=== PATIENT | female | born 1940 | race Caucasian/White ===

== ENCOUNTER → 2018-11-16 09:58 | Outpatient (CLI) | payer MEDICARE, SELFPAY ==
--- NOTE | 2018-11-16 10:01 | BI_ITS ---
MAMMOGRAPHY - BILATERAL SCREENING 3-D SAURABH SYNTHESIS REASON FOR EXAM: Female, 77 years old. Bilateral Screening 3-D tomosynthesis PERTINENT HISTORY: No significant family history. TECHNIQUE: 2-D mammograms and 3-D Saurabh synthesis of the breast (s) were performed. CAD was performed. COMPARISON: July 07, 2017, May 20, 2016 FINDINGS: The breast composition is almost entirely fat. Scattered benign calcifications are stable. No dense spiculated masses or suspicious microcalcifications are identified. No architectural distortion is identified. There is no skin thickening or retraction. There has been no significant change since the prior study. BI/SCREENING MAMM (CAD), BILAT IMPRESSION: No mammographic signs of malignancy. Routine yearly mammograms recommended. ASSESSMENT CATEGORY: BIRADS Category 2: Benign. A letter regarding these results will be sent to the patient by the facility within 30 days. FOLLOW UP RECOMMENDATION: Yearly follow up mammogram recommended. (A) Approximately 10% of breast cancers are not detected by mammography. A normal mammogram should not delay biopsy of a clinically suspicious abnormality. Electronically Signed: Genaro Arshad MD at 12:55 EDT , Service support ,
== END ==
PROVIDERS: Family Provider Family Medicine; PCP Family Medicine; Visit Provider Family Medicine
DX: Z12.31 Encounter for screening mammogram for malignant neoplasm of breast (principal)
CPT/HCPCS: 77063; 77067

== ENCOUNTER → 2018-12-05 | Outpatient (CLI) | payer MEDICARE, SELFPAY ==
[2018-07-06 14:13] VITALS: BMI 23.3
--- NOTE | 2018-12-05 13:08 | RAD_ITS ---
STUDY: X-RAY - LUMBAR SPINE REASON FOR EXAM: Female, 78 years old. Low back and bilateral hip pain. History of fall in July. TECHNIQUE: 5 view(s) of the lumbar spine were obtained. COMPARISON: None FINDINGS: There is generalized osteopenia. Normal lumbar lordosis. There is no substantial scoliosis. There is a normal alignment of the vertebrae. There is an anterior wedge compression deformity of the L1 and L2 vertebral bodies, age undetermined. There are no findings to suggest acute abnormality. There is diffuse mild intervertebral disc space narrowing with osteophyte formation most marked at L5-S1. There is diffuse facet sclerosis. There is marked aortic calcification. RAD/L/S Spine Min 4 Views IMPRESSION: Osteopenia with anterior wedge compression deformities of L1 and L2, age undetermined. Diffuse mild lumbar spondylosis. No acute finding identified. Electronically Signed: Genaro Arshad MD at 12:06 EDT , Service support ,
--- NOTE | 2018-12-05 13:09 | RAD_ITS ---
STUDY: X-RAY - PELVIS AND BILATERAL HIPS REASON FOR EXAM: Female, 78 years old. Bilateral hip pain TECHNIQUE: AP view of the pelvis.? 2 views of the right hip, and 2 views of the left hip were obtained. COMPARISON: None. FINDINGS: The cementless total right hip replacement and degenerative changes of the left hip joint. Healed fractures of the right inferior pubic ramus and in the left superior pubic ramus. The sacroiliac joints are normal. There are no acute fractures RAD/Hips B/L min 2 views w/ Pelvis IMPRESSION: No acute fractures. 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 Electronically Signed: Mekhi Bobby MD at 2:24 EDT Tel , Service support ,
== END | disposition home or self-care (01) ==
LOC: RAD 13:06
PROVIDERS: Family Provider Family Medicine; PCP Family Medicine; Referring Provider Family Medicine; Visit Provider Family Medicine
DX: Z91.81 History of falling (principal)
CPT/HCPCS: 72110; 73521

== ENCOUNTER → 2019-03-14 | Outpatient (CLI) | payer MEDICARE, SELFPAY ==
[2019-01-19 12:29] VITALS: BMI 22.6
[2019-03-14 10:32] LABS: Anion Gap 5 (5-15); BUN 11 mg/dL (7-18); BUN/Creat Ratio 12.4 RATIO (10-20); Calcium,Total 8.8 mg/dL (8.5-10.1); Chloride 94 mmol/L (98-107); Creatinine, Serum 0.89 mg/dL (0.55-1.02); EST Glomerular Filtration Rate 65 mL/min (>60); Est Glom Filt Rate - Afr Amer 79 mL/min (>60); Glucose 88 mg/dL (74-106); Potassium 3.7 mmol/L (3.5-5.1); Sodium Level 127 mmol/L (136-145)
== END | disposition home or self-care (01) ==
PROVIDERS: Family Provider Family Medicine; PCP Family Medicine; Referring Provider Family Medicine; Visit Provider Family Medicine
DX: E87.1 Hypo-osmolality and hyponatremia (principal)
CPT/HCPCS: 36415; 80048

== ENCOUNTER → 2019-03-24 08:43 | Outpatient (CLI) | payer MEDICARE, SELFPAY ==
[2019-01-19 12:29] VITALS: BMI 22.6
[2019-03-24 10:21] LABS: Anion Gap 9 (5-15); BUN 13 mg/dL (7-18); BUN/Creat Ratio 16.5 RATIO (10-20); Calcium,Total 8.9 mg/dL (8.5-10.1); Chloride 95 mmol/L (98-107); Creatinine, Serum 0.79 mg/dL (0.55-1.02); EST Glomerular Filtration Rate 75 mL/min (>60); Est Glom Filt Rate - Afr Amer 90 mL/min (>60); Glucose 90 mg/dL (74-106); Potassium 3.9 mmol/L (3.5-5.1); Sodium Level 133 mmol/L (136-145)
== END ==
PROVIDERS: Family Provider Family Medicine; PCP Family Medicine; Referring Provider Nurse Practitioner Family; Visit Provider Nurse Practitioner Family
DX: E87.1 Hypo-osmolality and hyponatremia (principal)
CPT/HCPCS: 36415; 80048

== ENCOUNTER → 2019-12-26 09:53 | Outpatient (CLI) | payer MEDICARE, SELFPAY ==
[2019-08-15 12:46] VITALS: BMI 23.1
[2019-12-26 12:46] LABS: Anion Gap 4 (5-15); BUN 15 mg/dL (7-18); BUN/Creat Ratio 19.1 RATIO (10-20); Calcium,Total 8.7 mg/dL (8.5-10.1); Chloride 101 mmol/L (98-107); Creatinine, Serum 0.79 mg/dL (0.55-1.02); EST Glomerular Filtration Rate 75 mL/min (>60); Est Glom Filt Rate - Afr Amer 90 mL/min (>60); Free T3 2.1 pg/mL (2.18-3.98); Glucose 91 mg/dL (74-106); Potassium 4.1 mmol/L (3.5-5.1); Sodium Level 135 mmol/L (136-145); T4 Free Direct 1.63 ng/dL (0.76-1.46); Thyroid Stim Hormone (TSH) 0.47 uIU/mL (0.358-3.74)
== END ==
PROVIDERS: PCP Family Medicine; Referring Provider Family Medicine; Visit Provider Family Medicine
DX: E03.9 Hypothyroidism, unspecified (principal); E87.1 Hypo-osmolality and hyponatremia
CPT/HCPCS: 36415; 80048; 84439; 84443; 84481

== ENCOUNTER → 2020-01-02 10:50 | Outpatient (CLI) | payer MEDICARE, SELFPAY ==
[2019-08-15 12:46] VITALS: BMI 23.1
--- NOTE | 2020-01-02 10:53 | BI_ITS ---
MAMMOGRAPHY - BILATERAL SCREENING REASON FOR EXAM: Female, 79 years old. Routine annual screening examination. PERTINENT HISTORY: Non-contributory. TECHNIQUE: Digital bilateral breast saurabh (3D mammographic acquisition) in the CC and MLO projections. 2-D mediolateral oblique (MLO) and craniocaudad (CC) views of both breasts were obtained. CAD: Full Field Digital Mammography with Computer Added Detection was performed. COMPARISON: Comparison is made with prior examination dated November 16, 2018 and July 07, 2017. FINDINGS: Breast Composition: There are scattered areas of fibroglandular density. There are no dominant masses or suspicious calcifications. No other significant abnormalities are identified. There has been no significant change since the prior study. BI/SCREEN MAMM (CAD) W/SAURABH BILAT IMPRESSION: Stable bilateral screening mammogram. Yearly follow-up mammogram recommended. (A) ASSESSMENT CATEGORY: BIRADS Category 1: Negative. A letter regarding these results will be sent to the patient by the facility within 30 days. Approximately 10% of breast cancers are not detected by mammography. A normal mammogram should not delay biopsy of a clinically suspicious abnormality. [id number] Electronically Signed: Troy Limon, at 12:16 EDT , Service support ,
== END ==
PROVIDERS: PCP Family Medicine; Referring Provider Family Medicine; Visit Provider Family Medicine
DX: Z12.31 Encounter for screening mammogram for malignant neoplasm of breast (principal)
CPT/HCPCS: 77063; 77067

== ENCOUNTER 2020-02-17 19:54 | Emergency (ER) | payer MEDICARE, SELFPAY ==
[2019-08-15 12:46] VITALS: BMI 23.1
[2020-02-17 19:55] VITALS: BP 180/78; PULSE 79; RESP 18; TEMP 36.7; O2SAT 98; BMI 22.8
--- NOTE | 2020-02-17 20:13 | EKG12_ITS ---
Test Reason : NAUSEA/VOMITING Blood Pressure : / mmHG Vent. Rate : 085 BPM Atrial Rate : 085 BPM P-R Int : 196 ms QRS Dur : 100 ms QT Int : 410 ms P-R-T Axes : 090 005 062 degrees QTc Int : 487 ms Normal sinus rhythm Nonspecific ST abnormality Abnormal ECG Confirmed by DACIA CAVAZOS, SHARMAINE ([id number]), photographic editor SHILPI CEJA ([id number]) on 02/20/2020 10:40:24 AM Referred By: WILLIAM Confirmed By:SHARMAINE PEDERSON MD
[2020-02-17 20:32] LABS: Absolute Lymphocyte Count 0.77 X10^3/uL (0.83-4.51); Absolute Neutrophil Count 5.9 X10^3/uL (2.0-7.7); Basophil# 0.01 X10^3/uL; Basophil% 0.1 % (0-1); Eosinophil# 0.01 X10^3/uL; Eosinophils% 0.1 % (0-5); Hematocrit 30.7 % (37-47); Hemoglobin 10.3 g/dL (12.0-15.0); Lymphocyte # 0.77 X10^3/ul (4.0); Lymphocyte % 10.2 % (19-41); Mean Corp Hgb Conc 33.6 g/dL (32-36); Mean Corpuscular Hgb 30.1 pg (27.0-32.0); Mean Corpuscular Volume 89.8 fL (81-99); Mean Platelet Vol. 10.2 fl (6.2-12.0); Monocyte# 0.86 X10^3/uL; Monocyte% 11.4 % (0-10); NRBC Flagged by Analyzer 0 % (0-5); Neutrophil # 5.86 X10^3/uL (2.7-7.7); Neutrophil % 77.9 % (47-70); Platelet Count 262 K/mm3 (150-450); RBC Distribution Width CV 13.2 % (11.6-14.6); RBC Distribution Width SD 43.6 fl (35.1-43.9); Red Blood Count 3.42 M/mm3 (4.2-5.4); White Blood Count 7.5 K/mm3 (4.4-11.0)
[2020-02-17 20:37] LABS: Mucous, Urine 0 SEEN /hpf (<or=2+); Squamous Epithelial Cells - UA 0 SEEN /hpf (5-10); White Blood Cells 0 SEEN /hpf (0-5)
[2020-02-17 20:41] LABS: Color, Urine Straw (Yellow); Glucose, Dipstick Normal (Normal); Ketone-Dipstick 50 mg/dl (Negative); Leukocyte Esterase-Dipstick Negative /ul (Negative); Nitrite-Dipstick Negative (Negative); Occult Blood-Urine 25 /ul (Negative); Protein-Dipstick Negative (Negative); Specific Gravity, Urine 1.015 (1.002-1.030); Urine Bilirubin Dipstick Negative (Negative); Urine Clarity Clear (Clear); Urine Urobilinogen Normal (Normal)
[2020-02-17 20:47] LABS: ALB/GLOB Ratio 0.8 RATIO (0.9-2.4); AST(SGOT) 18 U/L (15-37); Alanine Aminotransfer ALT/SGPT 17 U/L (13-56); Albumin, Serum 3.3 g/dL (3.2-5.0); Alkaline Phosphatase 75 U/L (45-117); Anion Gap 9 (5-15); BUN 13 mg/dL (7-18); BUN/Creat Ratio 16.6 RATIO (10-20); Calcium,Total 8.5 mg/dL (8.5-10.1); Chloride 94 mmol/L (98-107); Creatinine, Serum 0.78 mg/dL (0.55-1.02); EST Glomerular Filtration Rate 75 mL/min (>60); Est Glom Filt Rate - Afr Amer 91 mL/min (>60); Globulin 3.9 g/dL (2.2-4.2); Glucose 114 mg/dL (74-106); Lipase 92 U/L (73-393); Potassium 3.3 mmol/L (3.5-5.1); Protein, Total 7.2 g/dL (6.4-8.2); Sodium Level 128 mmol/L (136-145)
[2020-02-17 20:48] LABS: Amorphous Sediment 1+; Bacteria 1+ /hpf (None Seen); Red Blood Cells-Urine 0-5 SEEN /hpf (0-5)
--- NOTE | 2020-02-17 22:05 | ED.VISSUMM ---
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 She reports that she has nausea but that began at 830 this morning. States that she has not vomited. She reports that she chronically has a poor appetite. States that she has had this previously a lot. Review of systems patient complains generalized weakness. She denies any other complaints. Physical Examination: Vitals: Stable. Afebrile. General: Well-nourished and well-developed. Head: Normocephalic atraumatic. Neck: Supple, no lymphadenopathy. No JVD. Nontender. Cardiovascular: Regular rate and rhythm. No murmurs. Respiratory: No respiratory distress. Clear to auscultation bilaterally. Abdominal: Soft, nontender, nondistended, normal bowel sounds. No guarding, rebound, or peritoneal signs. Back: Nontender. Extremities: Nontender, no edema. Skin: Normal color, no rash. Neurologic: Alert and oriented ?3. Cranial nerves II through XII are intact. Normal strength and sensation. Psych: Normal affect. Test Results: EKG is sinus at [address] changes. Troponin is negative. UA is negative. LFTs are normal. Lipase is normal. Chem-7 is marked for sodium 128, potassium 3.3, chloride 94, glucose 114. CBC is marked for an H&H 10.3 and 30.7, segmented for 70, lymphocytes of 10, monocytes of 11. Emergency Department Course and Treatment: Patient is resting comfortably. She refused pain or nausea medications. Treatment Plan: Had a prolonged discussion with the patient about her hyponatremia. We discussed symptomatic treatment of this. She refused a prescription for nausea medication. She will be discharged with instructions to follow-up with her primary care physician in 3 to 5 days for another exam. Return to the emergency department for any worsening symptoms. Disposition: To home in improved and stable condition. Impression: 1 1. Nausea. 2. Mild hyponatremia. This note was generated with [employer] software. It may contain incorrect words, spelling, and punctuation that were not noted in review of the chart prior to signing ED Disposition - Plan for ED Patient: Disposition: Home or Assisted Living Instructions: ED Hyponatremia Referrals: Alek Chahal MD [Primary Care Provider] - 3-5 Days
[2020-02-17 22:15] VITALS: BP 151/62; PULSE 78; RESP 18; O2SAT 97
== END 2020-02-17 22:16 | disposition home or self-care (01) ==
LOC: ED 20:56
PROVIDERS: Emergency Provider Emergency Medicine; PCP Family Medicine
DX: R11.0 Nausea (principal); E87.1 Hypo-osmolality and hyponatremia; E03.9 Hypothyroidism, unspecified; I10 Essential (primary) hypertension
CPT/HCPCS: 80053; 81001; 83690; 84484; 85025; 93005; 99285; J7030; A4216

== ENCOUNTER → 2020-03-06 10:11 | Outpatient (CLI) | payer MEDICARE, SELFPAY ==
[2020-02-17 19:55] VITALS: BMI 22.8
[2020-03-06 13:09] LABS: Anion Gap 6 (5-15); BUN 14 mg/dL (7-18); Calcium,Total 8.8 mg/dL (8.5-10.1); Chloride 95 mmol/L (98-107); Creatinine, Serum 0.93 mg/dL (0.55-1.02); EST Glomerular Filtration Rate 61 mL/min (>60); Est Glom Filt Rate - Afr Amer 74 mL/min (>60); Free T3 1.9 pg/mL (2.18-3.98); Glucose 93 mg/dL (74-106); Sodium Level 131 mmol/L (136-145); T4 Free Direct 1.56 ng/dL (0.76-1.46); Thyroid Stim Hormone (TSH) 0.84 uIU/mL (0.358-3.74)
== END ==
PROVIDERS: PCP Family Medicine; Referring Provider Family Medicine; Visit Provider Family Medicine
DX: E03.9 Hypothyroidism, unspecified (principal); E87.1 Hypo-osmolality and hyponatremia
CPT/HCPCS: 36415; 80048; 84439; 84443; 84481

== ENCOUNTER → 2020-03-15 11:26 | Outpatient (CLI) | payer MEDICARE, SELFPAY ==
[2020-02-17 19:55] VITALS: BMI 22.8
--- NOTE | 2020-03-15 11:29 | RAD_ITS ---
STUDY: X-RAY - LUMBAR SPINE REASON FOR EXAM: Female, 79 years old. Low back pain after prior fall TECHNIQUE: 5 view(s) of the lumbar spine were obtained. COMPARISON: 12/05/2018 FINDINGS: Normal lumbar lordosis. There is a mild dextroscoliosis of the lumbar spine. There is a normal alignment of the vertebrae in the lateral view. There is diffuse demineralization with multi-level endplate spondylosis. There is multi-level degenerative disc disease with multi-level disc space narrowing. No demonstrated acute compression fracture. Stable compression fractures at T12 and L1 unchanged from the previous study. There is a new compression fracture of L3 when compared to the previous study but its chronicity is unknown as the endplates are sclerosed and there is no fracture lucency, or cortical irregularity noted. There is atherosclerotic calcification of the abdominal aorta without a demonstrated aneurysm. RAD/L/S Spine Min 4 Views IMPRESSION: Multilevel degenerative changes, stable chronic compression fractures at T12 and L1. Compression fracture at L3 is new since the previous study but not likely acute as the endplates are sclerosed, there is no fracture lucency or cortical irregularity. Dense calcifications of the abdominal aorta Electronically Signed: Jovany Aguayo MD at 17:22 EDT , Service support ,
--- NOTE | 2020-03-15 11:29 | RAD_ITS ---
STUDY: X-RAY CHEST REASON FOR EXAM: Female, 79 years old. recent fall, right sided thoracic back pain TECHNIQUE: 2 views COMPARISON: Prior portable chest of December 08, 2014. Lumbar spine films of December 05, 2018 FINDINGS: Negative for pneumothorax or pleural effusion. The lungs are clear and expanded. Chronic stable bilateral apical pleural-parenchymal changes. Normal size heart. Normal mediastinum and linda. Normal visualized pulmonary arteries. There is atherosclerotic calcification of the aortic arch with tortuosity. There are diffuse degenerative changes of the visualized thoracic spine. There is one upper mid thoracic mild compression deformity which appears old or chronic in nature. Mild levocurvature of the thoracic spine. Old moderate compression deformities of T12 and L1 documented on previous lumbar spine films of December 05, 2018. Normal visualized ribs, clavicles, and shoulders. There is no demonstrated abnormality of the visualized soft tissue structures of the upper abdomen. RAD/Chest PA and Lateral IMPRESSION: No acute cardiopulmonary findings or changes. Negative for pneumothorax, pleural effusion or consolidation. Stable cardiac size. Atherosclerotic changes of the thoracic aorta. Degenerative changes of the thoracic spine with a mild levocurvature. Old stable moderate compression deformities of T12 and L1 that were documented on prior lumbar spine films of December 05, 2018. Mild loss of height of T6 which appears chronic in nature. No other demonstrated thoracic fracture. Electronically Signed: Fely Jones MD at 17:03 EDT , Service support ,
== END ==
PROVIDERS: PCP Family Medicine; Referring Provider Family Medicine; Visit Provider Family Medicine
DX: M54.5 Low back pain (principal)
CPT/HCPCS: 71046; 72110

== ENCOUNTER 2020-04-02 08:46 | Emergency (ER) | payer MEDICARE, SELFPAY ==
[2020-04-02 08:47] VITALS: BP 137/80; PULSE 82; RESP 15; TEMP 36.2; O2SAT 98
--- NOTE | 2020-04-02 09:12 | EKG12_ITS ---
Test Reason : WEAKNESS Blood Pressure : / mmHG Vent. Rate : 072 BPM Atrial Rate : 072 BPM P-R Int : 184 ms QRS Dur : 104 ms QT Int : 414 ms P-R-T Axes : 087 001 060 degrees QTc Int : 453 ms Normal sinus rhythm Normal ECG Confirmed by MARK CAVAZOS, THANH ([id number]), film editor supervisor SHILPI CEJA ([id number]) on 04/08/2020 9:12:51 AM Referred By: DC Confirmed By:THANH FLORES MD
--- NOTE | 2020-04-02 09:35 | RAD_ITS ---
STUDY: X-RAY CHEST REASON FOR EXAM: Female, 79 years old. NAUSEA AND NOT FELT WELL FOR 5-6 MONTHS -- CHF TECHNIQUE: Single AP portable view of the chest. COMPARISON: Comparison is made with prior study dated 03/15/2020. FINDINGS: Hyperinflation. Stable scarring at the lung apices more prominent on the right side. There is no demonstrated pleural abnormality. Normal size heart. Normal mediastinum and linda. Normal visualized pulmonary arteries. There is atherosclerotic calcification of the aortic arch with tortuosity. There are diffuse degenerative changes of the visualized thoracic spine. Stable mild levoscoliosis. Normal visualized ribs, clavicles, and shoulders. There is no demonstrated abnormality of the visualized soft tissue structures of the upper abdomen. RAD/Chest 1 View (Portable) IMPRESSION: Hyperinflation. Stable scarring at the lung apices more prominent on the right side. Electronically Signed: Troy Limon, at 10:11 EDT , Service support ,
[2020-04-02 09:44] LABS: Absolute Lymphocyte Count 0.48 X10^3/uL (0.83-4.51); Basophil# 0.02 X10^3/uL; Basophil% 0.4 % (0-1); Hematocrit 35.4 % (37-47); Hemoglobin 11.6 g/dL (12.0-15.0); Lymphocyte # 0.48 X10^3/ul (4.0); Lymphocyte % 9.7 % (19-41); Mean Corp Hgb Conc 32.8 g/dL (32-36); Mean Corpuscular Hgb 29.5 pg (27.0-32.0); Mean Corpuscular Volume 90.1 fL (81-99); Mean Platelet Vol. 9.6 fl (6.2-12.0); Monocyte# 0.42 X10^3/uL; Monocyte% 8.5 % (0-10); NRBC Flagged by Analyzer 0 % (0-5); POSITIVE DIFFERENTIAL YES; Platelet Count 340 K/mm3 (150-450); RBC Distribution Width CV 13.5 % (11.6-14.6); RBC Distribution Width SD 44.5 fl (35.1-43.9); Red Blood Count 3.93 M/mm3 (4.2-5.4); White Blood Count 4.9 K/mm3 (4.4-11.0)
[2020-04-02 09:48] LABS: Differential Indicated SCAN CRITERIA MET
[2020-04-02 10:04] LABS: ALB/GLOB Ratio 0.8 RATIO (0.9-2.4); AST(SGOT) 15 U/L (15-37); Alanine Aminotransfer ALT/SGPT 21 U/L (13-56); Albumin, Serum 3.5 g/dL (3.2-5.0); Alkaline Phosphatase 99 U/L (45-117); Anion Gap 8 (5-15); BUN 9 mg/dL (7-18); BUN/Creat Ratio 12.3 RATIO (10-20); Chloride 95 mmol/L (98-107); Creatinine, Serum 0.73 mg/dL (0.55-1.02); EST Glomerular Filtration Rate 81 mL/min (>60); Est Glom Filt Rate - Afr Amer 98 mL/min (>60); Estimated Creatinine Clearance 38.04 ml/min; Globulin 4.2 g/dL (2.2-4.2); Glucose 103 mg/dL (74-106); Potassium 3.3 mmol/L (3.5-5.1); Protein, Total 7.7 g/dL (6.4-8.2); Sodium Level 130 mmol/L (136-145)
[2020-04-02 10:14] LABS: Mucous, Urine 0 SEEN /hpf (<or=2+); Red Blood Cells-Urine 0 SEEN /hpf (0-5); Squamous Epithelial Cells - UA 0 SEEN /hpf (5-10); White Blood Cells 0 SEEN /hpf (0-5)
[2020-04-02 10:21] LABS: Color, Urine Yellow (Yellow); Glucose, Dipstick Normal (Normal); Ketone-Dipstick 5 mg/dl (Negative); Leukocyte Esterase-Dipstick Negative /ul (Negative); Nitrite-Dipstick Negative (Negative); Occult Blood-Urine 10 /ul (Negative); Protein-Dipstick Negative (Negative); Urine Bilirubin Dipstick Negative (Negative); Urine Clarity Clear (Clear); Urine Urobilinogen Normal (Normal)
[2020-04-02 10:26] LABS: Bacteria RARE /hpf (None Seen)
[2020-04-02 10:48] VITALS: BP 136/60; PULSE 66; RESP 18; O2SAT 95
--- NOTE | 2020-04-02 10:56 | ED.VISSUMM ---
- ER Visit Summary Date of Service: 04/02/20 Chief Complaint: Sick History of Present Illness: The patient is a 79 F who fell secondary. Symptoms started months ago. She describes nausea. She said her body hurts. She is not eating or drinking much. She lost 10 pounds. She was seen here in the ED for similar symptoms previously and had a negative work-up. She has a history of coronary disease, hypertension, cardiomyopathy, V. tach, and others. History of hip surgery, hysterectomy, and others. No recent surgeries. Physical Examination: Afebrile and vital signs unremarkable. No acute distress. Alert and oriented. Heart regular. Lungs clear. Abdomen soft. Skin appears normal. Cranial nerves grossly intact. Normal strength and sensation. Test Results: EKG showed sinus rhythm at a rate of 72. Hemoglobin stable 11.6, sodium stable 130, potassium 3.3, chloride 95, hepatic panel normal, urinalysis unremarkable. Troponin normal. TSH normal. Chest x-ray shows chronic changes. Emergency Department Course and Treatment: Patient treated with IV fluids. She had a broad work-up given her vague symptoms. Her exam was reassuring. Her EKG, labs, urine, chest x-ray all were fairly unremarkable. Her sodium is low but stable. Potassium is low but stable and anemia is stable. These findings would not account for her symptoms. I believe the patient is appropriate for outpatient follow-up at this point. She will follow-up with her PCP and also plans to follow-up with GI, Dr. Goodwin. She is planning to have an outpatient upper endoscopy, but has concerns that it may not find the answers. I advised her to discuss her concerns with GI. Treatment Plan: As above Disposition: Discharge Impression: Generalized fatigue, hypokalemia, hyponatremia, anemia This note was generated with [employer] dictation software. It may contain incorrect words, spelling, and punctuation that were not noted in review of the chart prior to signing ED Disposition - Plan for ED Patient: Referrals: Alek Chahal MD [Primary Care Provider] -
--- NOTE | 2020-04-02 11:00 | ED.DEP ---
ED Disposition - Plan for ED Patient: Instructions: ED Weakness [facility] Referrals: Alek Chahal MD [Primary Care Provider] -
== END 2020-04-02 11:30 | disposition home or self-care (01) ==
LOC: ED 09:50
PROVIDERS: Emergency Provider Emergency Medicine; PCP Family Medicine
DX: R53.83 Other fatigue (principal); E87.6 Hypokalemia; E87.1 Hypo-osmolality and hyponatremia; D64.9 Anemia, unspecified; Z90.710 Acquired absence of both cervix and uterus; I25.10 Atherosclerotic heart disease of native coronary artery without angina pectoris; I10 Essential (primary) hypertension; I42.9 Cardiomyopathy, unspecified; Z72.0 Tobacco use
CPT/HCPCS: 71045; 80053; 81001; 84443; 84484; 85025; 93005; 99283; J7030; A4216

== ENCOUNTER → 2020-04-19 13:44 | Outpatient (CLI) | payer MEDICARE, SELFPAY ==
--- NOTE | 2020-04-19 14:10 | RAD_ITS ---
STUDY: X-RAY - LUMBAR SPINE REASON FOR EXAM: Female, 79 years old. low back pain TECHNIQUE: 5 view(s) of the lumbar spine were obtained. COMPARISON: Jan 25 2017 FINDINGS: Examination is severely technically limited due to a variety of factors, most dominant of which is severe osteoporosis. Bones are demineralized and not well seen on plain films due to their low intrinsic density. Diagnostic information is not sufficiently reliable to guide decision-making. Lumbar spine is aligned. There are possible multilevel compression fractures, poorly detectable. There are no sclerotic lesions. There is right hip replacement. RAD/L/S Spine Min 4 Views IMPRESSION: Extremely limited nondiagnostic lumbar spine. Please refer to CT lumbar spine with optimal diagnostic technique. Probable compression fractures. Electronically Signed: Rosalie Lew, at 20:04 EDT Tel , Service support ,
== END ==
PROVIDERS: PCP Family Medicine; Referring Provider Family Medicine; Visit Provider Family Medicine
DX: M54.5 Low back pain (principal)
CPT/HCPCS: 72110

== ENCOUNTER → 2020-05-08 08:10 | Outpatient (CLI) | payer MEDICARE, SELFPAY ==
--- NOTE | 2020-05-08 08:13 | CT_ITS ---
STUDY: CT LUMBAR SPINE WITHOUT CONTRAST REASON FOR EXAM: Female, 79 years old. LOW BACK PAIN. FALL 2 MONTHS AGO RADIATION DOSAGE (If Supplied By Facility): CTDIvol = ( 21.12 ) mGy, DLP = ( 633.30 ) mGycm TECHNIQUE: The patient was scanned in a multi detector CT scanner. High resolution transaxial imaging was performed. Images were obtained from T12 vertebral level to S1 level. Sagittal and coronal images were reconstructed. Individualized dose optimization techniques were used for this CT. COMPARISON: None FINDINGS: Normal lumbar lordosis. There is no substantial scoliosis. Diffuse demineralization of the lumbar vertebrae. 60% loss of height of the T12 vertebrae. This is included with a compression fracture. L1-2: 50% loss of height of the L1 vertebrae. No retropulsion of the fracture fragment. L2-3: Spondylolysis. Mild degree of disc space narrowing. 30% loss of height of the superior endplate of the L3 vertebrae. L3-4: Mild degree of disc space narrowing. Facet joint osteoarthritis. Mild degree of diffuse posterior disc bulge. No significant stenosis seen. L4-5: Minimal anterior listhesis of L4 on L5. Facet joint osteoarthritis and hypertrophy. Mild degree of neural foraminal stenosis. L5-S1: Normal endplates. Normal disc height and morphology. Normal bilateral facet joints. Normal central canal and bilateral lateral recesses. Normal bilateral intervertebral neural foramina. Atherosclerotic calcification of the abdominal aorta. CT/Spine Lumbar without Contrast IMPRESSION: Diffuse demineralization of the lumbar vertebrae with a 60% loss of height of the T12 vertebrae and 50% loss of height of the L1 vertebrae. Compression of the L3 vertebrae. Electronically Signed: Troy Limon, at 14:34 EDT , Service support ,
== END ==
PROVIDERS: PCP Family Medicine; Referring Provider Family Medicine; Visit Provider Family Medicine
DX: M54.5 Low back pain (principal); M81.0 Age-related osteoporosis without current pathological fracture
CPT/HCPCS: 72131

== ENCOUNTER → 2020-06-11 10:45 | Outpatient (CLI) | payer MEDICARE, SELFPAY ==
[2020-05-21 13:11] VITALS: BMI 20.6
--- NOTE | 2020-06-11 10:46 | ECHOD_ITS ---
Reason For Study: CHF Procedure This was a 2D Doppler, Color Flow transthoracic echocardiogram. Exam performed in department. Left Ventricle Normal LV size. Left ventricular systolic function is normal. The estimated ejection fraction is 60 %. Stage 1 diastolic dysfunction. No regional wall motion abnormalities noted. Right Ventricle Normal RV size. Normal systolic function. Atria The left atrium is mildly enlarged. Normal right atrium. Mitral Valve Mild focal mitral valve calcification. Mild-Moderate (1-2+) eccentric mitral valve insufficiency. Tricuspid Valve Normal tricuspid valve. Mild (1+) tricuspid valve insufficiency. Pulmonary artery systolic pressure is 36 mmHg. Aortic Valve Trisinus/trileaflet aortic valve. Mild focal aortic valve calcification. Peak aortic valve gradient 22 mmHg. Mean aortic valve gradient 13 mmHg. Calculated aortic valve area (continuity equation) is 1.4 cm2. Mild aortic stenosis. Mild (1+) aortic valve insufficiency. Pulmonic Valve Normal pulmonic valve. Great Vessels Normal aortic root. The pulmonary artery is normal size. Normal inferior vena cava. Pericardium/Pleural Trivial pericardial effusion. MMode/2D Measurements & Calculations LVIDd: 4.4 cm IVSd: 1.1 cm LVOT diam: 2.0 cm LVIDs: 2.8 cm LVPWd: 1.1 cm LVOT area: 3.3 cm2 RVDd: 3.8 cm FS: 35.7 % Ao root diam: 3.7 cm LAV(MOD-sp4): 71.6 ml LVAd ap4: 30.3 cm2 EDV(MOD-sp4): 102.1 ml EDV(sp4-el): 104.3 ml LVAs ap4: 18.4 cm2 ESV(MOD-sp4): 41.9 ml ESV(sp4-el): 42.8 ml EF(MOD-sp4): 59.0 % EF(sp4-el): 59.0 % SV(MOD-sp4): 60.2 ml SV(sp4-el): 61.5 ml LA A4 area: 23.1 cm2 LA dimension(2D): 4.3 cm RA A4 area: 14.2 cm2 Time Measurements MV dec time: 0.19 sec Doppler Measurements & Calculations MV E max jose: 64.2 cm/sec Lat Peak E' Jose: 5.9 cm/sec Med Peak E' Jose: 3.6 cm/sec MV A max jose: 74.4 cm/sec E/E' lat: 10.9 E/E' med: 17.8 MV E/A: 0.86 Ao V2 max: 234.1 cm/sec AI max jose: 499.8 cm/sec LV V1 max: 98.2 cm/sec Ao max P.9 mmHg AI max P.9 mmHg LV V1 max P.9 mmHg Ao V2 mean: 173.5 cm/sec LV V1 mean P.8 mmHg Ao mean P.2 mmHg AI dec slope: 362.2 cm/sec2 LV V1 mean: 63.2 cm/sec Ao V2 VTI: 52.4 cm AI P1/2t: 404.1 msec LV V1 VTI: 21.8 cm AGUSTIN(I,D): 1.4 cm2 AGUSTIN(V,D): 1.4 cm2 SV(LVOT): 71.2 ml PA V2 max: 84.5 cm/sec PI end-d jose: 156.8 cm/sec TR max jose: 287.7 cm/sec TR max P.2 mmHg Interpretation Summary Normal LV size. Left ventricular systolic function is normal. The estimated ejection fraction is 60 %. Stage 1 diastolic dysfunction. Mean aortic valve gradient 13 mmHg. Calculated aortic valve area (continuity equation) is 1.4 cm2. Mild aortic stenosis. Compared to previous study, the left ventricular systolic function has improved.. Ordering Physician: Javier Lehman Referring Physician: ZION MCNAMARA Performed By: Stephanie Catalan, KIM, RVT
== END ==
PROVIDERS: PCP Family Medicine; Referring Provider Internal Medicine Cardiovascular Disease; Visit Provider Internal Medicine Cardiovascular Disease
DX: I50.9 Heart failure, unspecified (principal); I25.10 Atherosclerotic heart disease of native coronary artery without angina pectoris
CPT/HCPCS: 93306

== ENCOUNTER → 2020-07-03 09:32 | Outpatient (CLI) | payer MEDICARE, SELFPAY ==
[2020-05-21 13:11] VITALS: BMI 20.6
--- NOTE | 2020-07-03 09:42 | MRI_ITS ---
STUDY: MRI LUMBAR SPINE WITHOUT CONTRAST REASON FOR EXAM: Female, 79 years old. radiculopathy pt c/o low back pain x 3-4 months radiating into legs bilaterally R and gt;L TECHNIQUE: Standardized fat and water weighted pulse sequences were obtained in the sagittal and axial planes. COMPARISON: CT 05/08/2020 FINDINGS: T12-L1: Normal endplates. Normal disc height, hydration and morphology. Normal bilateral facet joints. Normal central canal and bilateral lateral recesses. Normal bilateral intervertebral neural foramina. Normal lumbar lordosis. There is no substantial scoliosis. Normal conus medullaris that terminates at the T12/L1. Acute mild compression fracture the superior endplate of L1 and acute mild compression fracture the inferior endplate of L5 without retropulsion into the spinal canal. L1-2: Mild bilobed disc protrusion produces mild spinal stenosis and mild bilateral neural foraminal stenosis. L2-3: Mild bilobed disc protrusion produces mild spinal stenosis and mild bilateral neural foraminal stenosis. L3-4: Normal endplates. Normal disc height, hydration and morphology. Normal bilateral facet joints. Normal central canal and bilateral lateral recesses. Normal bilateral intervertebral neural foramina. L4-5: Normal endplates. Normal disc height, hydration and morphology. Normal bilateral facet joints. Normal central canal and bilateral lateral recesses. Normal bilateral intervertebral neural foramina. L5-S1: Normal endplates. Normal disc height, hydration and morphology. Normal bilateral facet joints. Normal central canal and bilateral lateral recesses. Normal bilateral intervertebral neural foramina. Normal visualized sacral ala. Normal visualized paraspinous soft tissue structures. MRI/Spine Lumbar (Routine) IMPRESSION: Acute mild compression fractures of L1 and L5 without retropulsion into the spinal canal. Electronically Signed: Gurwinder Maldonado MD at 12:00 EST Tel , Service support ,
--- NOTE | 2020-07-03 09:53 | MRI_ITS ---
STUDY: MRI BILATERAL HIPS T PELVIS REASON FOR EXAM: Low back pain for 3-4 months radiating to legs bilaterally, right greater than left, suspected stress fracture. TECHNIQUE: Standardized fat and water weighted pulse sequences were obtained in all 3 orthogonal planes. COMPARISON: Radiographs 12/05/2018. FINDINGS: RIGHT HIP There is a right hip arthroplasty. Normal right gluteus minimus, medius and iliopsoas tendons and distal insertions. There are chronic healed fractures of the superior and inferior right pubic rami (T1 axial images 27, 34-36). Normal right pubic symphysis. Normal right ischial tuberosity. Normal origin of the right hamstring tendons. Normal visualized right iliac wing, sacroiliac joint, and sacral ala. There is a low-grade strain of the right obturator externus muscle (T2 axial images 29, 30). LEFT HIP There is left hip arthrosis with chondral thinning (T2 sagittal image 12) and mild subchondral cystic change of the left femoral head and acetabulum (inversion recovery coronal images 17-19). There is degeneration of the left labrum. There is no stress fracture of the left femoral head. Normal left femoral neck and intratrochanteric region. Normal left gluteus minimus, medius and iliopsoas tendons and distal insertions. There are chronic healed fractures of the left superior pubic ramus (T1 axial images 29, 30) and left inferior pubic ramus (T1 axial images 35, 36). Normal left pubic symphysis. Normal left ischial tuberosity. Normal origin of the left hamstring tendons. Normal visualized left iliac wing, sacroiliac joint, and sacral ala. 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 MRI/Pelvis (Routine) IMPRESSION: Chronic healed fractures of the superior and inferior pubic rami bilaterally. Left hip arthrosis. Low-grade strain of the right obturator externus muscle. No demonstrated stress fracture. Electronically Signed: Junito Guy MD at 11:51 EST Tel , Service support ,
== END ==
PROVIDERS: PCP Family Medicine; Referring Provider Orthopaedic Surgery; Visit Provider Orthopaedic Surgery
DX: M47.26 Other spondylosis with radiculopathy, lumbar region (principal); M51.36 Other intervertebral disc degeneration, lumbar region; S32.000A Wedge compression fracture of unspecified lumbar vertebra, initial encounter for closed fracture; M48.07 Spinal stenosis, lumbosacral region
CPT/HCPCS: 72148; 72195

== ENCOUNTER → 2020-12-09 08:54 | Outpatient (CLI) | payer MEDICARE, SELFPAY ==
[2020-05-21 13:11] VITALS: BMI 20.6
[2020-12-09 10:07] LABS: Absolute Lymphocyte Count 1.03 X10^3/uL (0.83-4.51); Absolute Neutrophil Count 2.9 X10^3/uL (2.0-7.7); Basophil# 0.02 X10^3/uL; Basophil% 0.4 % (0-1); Eosinophil# 0.13 X10^3/uL; Eosinophils% 2.9 % (0-5); Hematocrit 37.1 % (37-47); Hemoglobin 11.6 g/dL (12.0-15.0); Lymphocyte # 1.03 X10^3/ul (4.0); Lymphocyte % 23.1 % (19-41); Mean Corp Hgb Conc 31.3 g/dL (32-36); Mean Corpuscular Hgb 29.7 pg (27.0-32.0); Mean Corpuscular Volume 95.1 fL (81-99); Mean Platelet Vol. 10.9 fl (6.2-12.0); NRBC Flagged by Analyzer 0 % (0-5); Neutrophil # 2.86 X10^3/uL (2.7-7.7); Neutrophil % 64.2 % (47-70); Platelet Count 236 K/mm3 (150-450); RBC Distribution Width SD 49.4 fl (35.1-43.9); White Blood Count 4.5 K/mm3 (4.4-11.0)
[2020-12-09 10:59] LABS: ALB/GLOB Ratio 0.9 RATIO (0.9-2.4); AST(SGOT) 20 U/L (15-37); Alanine Aminotransfer ALT/SGPT 18 U/L (13-56); Albumin, Serum 3.5 g/dL (3.2-5.0); Alkaline Phosphatase 69 U/L (45-117); Anion Gap 4 (5-15); BUN 13 mg/dL (7-18); BUN/Creat Ratio 15.8 RATIO (10-20); Calcium,Total 8.8 mg/dL (8.5-10.1); Chloride 100 mmol/L (98-107); Cholesterol 206 mg/dL (200); Creatinine, Serum 0.82 mg/dL (0.55-1.02); EST Glomerular Filtration Rate 71 mL/min (>60); Est Glom Filt Rate - Afr Amer 86 mL/min (>60); Globulin 3.9 g/dL (2.2-4.2); Glucose 87 mg/dL (74-106); High Density Lipoprotein 91 mg/dL; Potassium 3.6 mmol/L (3.5-5.1); Protein, Total 7.4 g/dL (6.4-8.2); Sodium Level 135 mmol/L (136-145); Thyroid Stim Hormone (TSH) 1.31 uIU/mL (0.358-3.74); Triglycerides 62 mg/dL; Very Low Density Lipoprotein 12 mg/dL (5-40)
== END ==
PROVIDERS: PCP Family Medicine; Referring Provider Family Medicine; Visit Provider Family Medicine
DX: E87.1 Hypo-osmolality and hyponatremia (principal); I10 Essential (primary) hypertension; E03.9 Hypothyroidism, unspecified; E78.5 Hyperlipidemia, unspecified
CPT/HCPCS: 36415; 80053; 80061; 84443; 85025

== ENCOUNTER 2022-02-25 23:48 | Inpatient (IN) | payer MEDICARE, SELFPAY ==
[2022-02-25 23:48] VITALS: BP 155/89; PULSE 74; RESP 16; O2SAT 97
[2022-02-25 23:49] VITALS: BP 155/89; PULSE 75; RESP 14; TEMP 36.4; O2SAT 96; BMI 26.1
--- NOTE | 2022-02-25 23:59 | EX.ED.GENINJ ---
HPI History of Present Illness Chief Complaint: Fall Informant: patient Narrative Narrative: 81-year-old female presenting to the emergency department with right thigh pain. Patient states that she sustained a fall tonight. She is unable to to get up and bear weight. She notes she has had prior right hip replacement by Dr. Matson. She notes pain in the right mid thigh. She denies any other injuries. She tells me to look at her chart when asked about medication allergies but then states that she is not allergic to ciprofloxacin as it states in her chart because she takes that for her anxiety. [facility] Medical History Arthritis Atherosclerosis of coronary artery of [place] heart without angina pectoris Compression fracture Depression Essential (primary) hypertension Myocarditis Non-ischemic cardiomyopathy Nonrheumatic aortic (valve) stenosis Nonsustained paroxysmal ventricular tachycardia Premature ventricular beats Right leg DVT Solar elastosis Home Medications aspirin 81 mg tablet,delayed release (Adult Aspirin Regimen) 81 mg PO DAILY 07/06/18 [History Last Taken Unknown] levothyroxine 100 mcg capsule 100 mcg PO TUTHSA 07/06/18 [History Last Taken Unknown] levothyroxine 112 mcg tablet 112 mcg PO DAILY 02/17/20 [History Last Taken Unknown] escitalopram oxalate 20 mg tablet 20 mg PO DAILY 07/29/21 [History Last Taken Unknown] lisinopril 20 mg tablet 20 mg PO BID #180 tabs 12/17/21 [Rx Last Taken Unknown] metoprolol succinate 50 mg tablet,extended release 24 hr 50 mg PO DAILY #90 tabs 12/17/21 [Rx Last Taken Unknown] Allergy/AdvReac Type Severity Reaction Status Date / Time imiquimod [From Aldara] Allergy Unknown Verified 02/25/22 23:49 Penicillins [PCN] Allergy Anaphylaxis Verified 02/25/22 23:49 ciprofloxacin [From Cipro] AdvReac Other Verified 02/25/22 23:49 furosemide AdvReac low saodium Verified 02/25/22 23:49 hydrochlorothiazide AdvReac hyponatremi Verified 02/25/22 23:49 a magnesium AdvReac Nausea Verified 02/25/22 23:49 prednisone AdvReac Upset Verified 02/25/22 23:49 Stomach Surgical History History of cataract surgery History of hysterectomy History of left heart catheterization (02/19/11) History of right hip replacement Social History Smoking Status: Former smoker how long ago did patient quit smokin years ago alcohol intake: current alcohol intake frequency: holidays/special occasions only substance use type: does not use caffeine: Yes Type: coffee Number of servings: 1 ROS ROS ED Constitutional Constitutional ED: Denies chills or weight loss Eyes Eyes: Denies change in vision or diplopia ENT ENT ED: Denies ear pain, rhinorrhea or sore throat Cardiovascular Cardiovascular: Denies chest pain, orthopnea, palpitations or racing heartbeat Respiratory/Chest Respiratory/Chest: Denies cough, dyspnea or orthopnea Gastrointestinal Gastrointestinal: Denies abdominal pain, diarrhea, nausea or vomiting Genitourinary Genitourinary ED: Denies dysuria, hematuria or urinary frequency Musculoskeletal Musculoskeletal: Reports other Details: Right thigh pain ; Denies arthralgias or myalgias Integumentary Denies abscess or rash Neurologic Neurologic: Denies headache(s) or weakness Psychiatric Psychiatric: Denies anxiety, depression, suicidal ideation or suicidal thoughts Endocrine Endocrinology: Denies polydipsia, polyphagia or polyuria Allergic/Immunologic Allergic/Immunologic ED: Denies mouth swelling, tongue swelling or urticaria EXAM Physical Exam Const Vital Signs: 02/25/22 23:49 02/25/22 23:48 02/25/22 23:55 Temperature 97.6 F L Temperature Source Temporal Pulse Rate 75 74 Respiratory Rate 14 16 Respiratory Effort Normal Respiratory Depth Normal Respiratory Pattern Normal Blood Pressure 155/89 H 155/89 H Blood Pressure Mean 111 111 Pulse Ox 96 97 Oxygen Delivery Method Room Air Room Air Room Air 02/26/22 01:44 02/26/22 01:45 Temperature 98.1 F Temperature Source Temporal Pulse Rate 55 L 74 Respiratory Rate 17 Respiratory Effort Respiratory Depth Respiratory Pattern Blood Pressure 127/65 H 146/77 H Blood Pressure Mean 85 100 Pulse Ox 98 96 Oxygen Delivery Method Room Air Room Air Positive well nourished and well developed General Appearance ED: well developed HEENT Reports normocephalic, head/scalp atraumatic and moist mucous membranes Eyes PERRL and EOMs intact bilaterally Neck no lymphadenopathy, supple and no JVD Resp normal respiratory effort and clear to auscultation bilaterally Cardio regular rate, regular rhythm and no murmurs GI normal to inspection, nondistended, normoactive bowel sounds and non-tender Palpation: soft Back/Spine no CVA tenderness and normal ROM Extremity Extremity Narrative: Tender to palpation in the mid right thigh. The leg is held in external rotation. Neurovascular intact distal General Extremety ED: Negative for edema General Extremity: Negative for edema Neuro oriented x3 and CN's II-XII intact bilaterally Sensorium / Orientation: alert Motor Exam: strength 5/5 throughout Psych mental status grossly normal Mood & Affect: Negative for depressed or tearful Skin no rashes or lesions noted and no wounds MDM MDM MDM Narrative Medical decision making narrative: My interpretation of the plain films of the right femur and hip and pelvis is an oblique fracture through the proximal right femoral diaphysis in the subtrochanteric region adjacent to the femoral stem of the right hip prosthesis. Patient received pain and nausea medications. I spoke with Dr. Matson her surgeon. Plan is admission for further care. Lab Data Attestation: I reviewed the patient's lab results. Labs: Laboratory Results - last 24 hr 02/26/22 02/26/22 00:13 00:13 WBC 6.6 RBC 3.36 L Hgb 9.9 L Hct 30.4 L MCV 90.5 MCH 29.5 MCHC 32.6 RDW Std Deviation 42.5 RDW Coeff of Tonie 12.9 Plt Count 242 MPV 10.1 Immature Gran % (Auto) 0.800 Neut % (Auto) 62.7 Lymph % (Auto) 24.8 [place] % (Auto) 9.1 Eos % (Auto) 2.1 Baso % (Auto) 0.5 Absolute Neuts (auto) 4.1 Absolute Lymphs (auto) 1.63 Nucleated RBC % 0 Sodium 130 L Potassium 3.6 Chloride 95 L Carbon Dioxide 26.0 Anion Gap 9 BUN 16 Creatinine 0.87 Estim Creat Clear Calc 40.53 Est GFR (MDRD) Af Amer 80 Est GFR (MDRD) Non-Af 66 BUN/Creatinine Ratio 18.4 Glucose 110 H Calcium 8.6 Total Bilirubin 0.30 AST 20 ALT 18 Alkaline Phosphatase 59 Total Protein 6.6 Albumin 3.1 L Globulin 3.5 Albumin/Globulin Ratio 0.9 Radiography Diagnostic Testing: Clinical Impression(s) from Imaging Studies Femur X-Ray 02/26/22 00:00 IMPRESSION: 1. Complete right hip prosthesis without dislocation. 2. Presence of an oblique fracture of the proximal right femoral diaphysis, in the subtrochanteric region adjacent to the femoral stem of the right hip prosthesis. 3. Moderate demineralization. 4. Associated soft tissue swelling. Electronically Signed: Riaz Corea MD at 0:56 EDT , Pelvis X-Ray 02/26/22 00:00 IMPRESSION: 1. Complete right hip prosthesis without dislocation. 2. Presence of an oblique fracture adjacent to the femoral stem of the right hip prosthesis. 3. No pelvic bone fractures. 4. Mild demineralization. 5. Soft tissue swelling adjacent to the right femoral fracture. Electronically Signed: Riaz Corea MD at 0:59 EDT , EKG Initial EKG: Attestation: I personally reviewed and interpreted this EKG as follows: Comments: Normal sinus rhythm ventricular rate of 76 bpm. Discharge Plan Dx/Rx/DC Orders Clinical Impression: Periprosthetic intertrochanteric fracture of femur, Fall Disposition Disposition: Acute Care [facility]
[2022-02-26] VITALS (18 sets, daily range): BP systolic 87–151; BP diastolic 40–85; PULSE 55–118; RESP 16–20; TEMP 36.1–37.4; O2SAT 86–100; BMI 25.7
--- NOTE | 2022-02-26 | RAD_ITS ---
STUDY: AP PELVIS X-RAY OF 0031 HOURS ON 02/26/2022 REASON FOR EXAM: 81-year-old with trauma to pelvis and right hip. TECHNIQUE: One view of the pelvis was obtained. COMPARISON: None. FINDINGS: There is mild demineralization. There is a complete right hip prosthesis. There is an oblique fracture adjacent to the femoral stem of the prosthesis. There is no evidence of pelvic bone fractures or dislocations. No osseous lytic, sclerotic or mass lesions are present. Sacral iliac joints and symphysis pubis have a normal appearance. There is some soft tissue swelling adjacent to the proximal right femoral fracture. RAD/Pelvis 1 or 2 Views IMPRESSION: 1. Complete right hip prosthesis without dislocation. 2. Presence of an oblique fracture adjacent to the femoral stem of the right hip prosthesis. 3. No pelvic bone fractures. 4. Mild demineralization. 5. Soft tissue swelling adjacent to the right femoral fracture. Electronically Signed: Riaz Corea MD at 0:59 EDT ,
--- NOTE | 2022-02-26 | RAD_ITS ---
STUDY: RIGHT FEMUR X-RAY SERIES OF 0032 HOURS ON 02/26/2022 REASON FOR STUDY: 81-year-old female with proximal right femoral trauma and pain. TECHNIQUE: 5 view(s) of the femur. COMPARISON: None. FINDINGS: There is a complete right hip prosthesis. There is an oblique fracture of the proximal right femoral diaphysis, in the subtrochanteric region adjacent to the stem of the femoral portion of the right hip prosthesis. There is moderate demineralization. There is no dislocation of the right hip prosthesis. Associated soft tissue swelling is noted. RAD/Femur Min 2 Views IMPRESSION: 1. Complete right hip prosthesis without dislocation. 2. Presence of an oblique fracture of the proximal right femoral diaphysis, in the subtrochanteric region adjacent to the femoral stem of the right hip prosthesis. 3. Moderate demineralization. 4. Associated soft tissue swelling. Electronically Signed: Riaz Corea MD at 0:56 EDT ,
[2022-02-26] MEDS: Ondansetron 4 MG/2 ML Vial IV (00:11)
[2022-02-26] MEDS: Morphine 4 MG/ML Syringe IV ×2 (00:11→01:05)
[2022-02-26 00:17] LABS: Absolute Lymphocyte Count 1.63 X10^3/uL (0.83-4.51); Absolute Neutrophil Count 4.1 X10^3/uL (2.0-7.7); Basophil# 0.03 X10^3/uL; Basophil% 0.5 % (0-1); Eosinophil# 0.14 X10^3/uL; Eosinophils% 2.1 % (0-5); Hematocrit 30.4 % (37-47); Hemoglobin 9.9 g/dL (12.0-15.0); Lymphocyte # 1.63 X10^3/ul (0.83-4.51); Lymphocyte % 24.8 % (19-41); Mean Corp Hgb Conc 32.6 g/dL (32-36); Mean Corpuscular Hgb 29.5 pg (27.0-32.0); Mean Corpuscular Volume 90.5 fL (81-99); Mean Platelet Vol. 10.1 fl (6.2-12.0); Monocyte% 9.1 % (0-10); NRBC Flagged by Analyzer 0 % (0-5); Neutrophil # 4.11 X10^3/uL (2.7-7.7); Neutrophil % 62.7 % (47-70); Platelet Count 242 K/mm3 (150-450); RBC Distribution Width CV 12.9 % (11.6-14.6); RBC Distribution Width SD 42.5 fl (35.1-43.9); Red Blood Count 3.36 M/mm3 (4.2-5.4); White Blood Count 6.6 K/mm3 (4.4-11.0)
[2022-02-26 00:34] LABS: ALB/GLOB Ratio 0.9 RATIO (0.9-2.4); AST(SGOT) 20 U/L (15-37); Alanine Aminotransfer ALT/SGPT 18 U/L (13-56); Albumin, Serum 3.1 g/dL (3.2-5.0); Alkaline Phosphatase 59 U/L (45-117); Anion Gap 9 (5-15); BUN 16 mg/dL (7-18); BUN/Creat Ratio 18.4 RATIO (10-20); Calcium,Total 8.6 mg/dL (8.5-10.1); Chloride 95 mmol/L (98-107); Creatinine, Serum 0.87 mg/dL (0.55-1.02); EST Glomerular Filtration Rate 66 mL/min (>60); Est Glom Filt Rate - Afr Amer 80 mL/min (>60); Estimated Creatinine Clearance 40.53 ml/min; Globulin 3.5 g/dL (2.2-4.2); Glucose 110 mg/dL (74-106); Potassium 3.6 mmol/L (3.5-5.1); Protein, Total 6.6 g/dL (6.4-8.2); Sodium Level 130 mmol/L (136-145)
--- NOTE | 2022-02-26 01:24 | HP.PCM.HOS_ITS ---
HPI - General General Date of Admission: 02/26/22 Date of Service: 02/26/22 Chief Complaint: Fall, hip pain. HPI Narrative The patient is an 81 y/o F w/ PMHx: Chronic hyponatremia, Chronic normocytic anemia, Hx RLE DVT, Hx NSPVT, HTN, HLD, Depression and Anxiety, Nonischemic cardiomyopathy, CAD, Former tobacco use, Hypothyroidism who presents to the [facility] ED on 02/26/22 with history of attempting to get up out of her chair with a fall from standing, landing on her carpet onto her right hip with inability to get up or bear weight following this with pain primarily in the right mid thigh region prompting ED evaluation. She currently rates her pain as dull aching and sharp stabbing with movement, pain rated 8/10 in severity. She had recent cardiology evaluation 01/28/2022 with no concerns per their service at that time with no chest pain, pressure, dyspnea, edema, orthopnea, PND. Work-up in the ED included T 97.6, heart rate 75, BP 155/89, respiratory rate 14, 96% on room air, CBC with WC 6.6, pneumo 9.9, platelet 242 without shift, CMP with sodium 130, chloride 95, glucose 110 otherwise hepatic profile unremarkable plain film of the right femur/hip with complete right hip prosthesis without dislocation, oblique fracture of the proximal right femoral diaphysis, in the subtrochanteric region adjacent to the femoral stem of the right hip prosthesis, moderate demineralization with associated soft tissue swelling, EKG with SR with no acute evidence of ischemia. In the ED patient administered morphine, ativan, toradol and zofran. [facility] Medical History Arthritis Atherosclerosis of coronary artery of [place] heart without angina pectoris Compression fracture Depression Essential (primary) hypertension Myocarditis Non-ischemic cardiomyopathy Nonrheumatic aortic (valve) stenosis Nonsustained paroxysmal ventricular tachycardia Premature ventricular beats Right leg DVT Solar elastosis Home Medications aspirin 81 mg tablet,delayed release (Adult Aspirin Regimen) 81 mg PO DAILY 07/06/18 [History Last Taken Unknown] levothyroxine 100 mcg capsule 100 mcg PO TUTHSA 07/06/18 [History Last Taken Unknown] levothyroxine 112 mcg tablet 112 mcg PO DAILY 02/17/20 [History Last Taken Unknown] escitalopram oxalate 20 mg tablet 20 mg PO DAILY 07/29/21 [History Last Taken Unknown] lisinopril 20 mg tablet 20 mg PO BID #180 tabs 12/17/21 [Rx Last Taken Unknown] metoprolol succinate 50 mg tablet,extended release 24 hr 50 mg PO DAILY #90 tabs 12/17/21 [Rx Last Taken Unknown] Allergy/AdvReac Type Severity Reaction Status Date / Time imiquimod [From Aldara] Allergy Unknown Verified 02/25/22 23:49 Penicillins [PCN] Allergy Anaphylaxis Verified 02/25/22 23:49 ciprofloxacin [From Cipro] AdvReac Other Verified 02/25/22 23:49 furosemide AdvReac low saodium Verified 02/25/22 23:49 hydrochlorothiazide AdvReac hyponatremi Verified 02/25/22 23:49 a magnesium AdvReac Nausea Verified 02/25/22 23:49 prednisone AdvReac Upset Verified 02/25/22 23:49 Stomach Family History (Updated 02/26/22 @ 02:[address] Rosa Valladares MD) Mother Heart disease Father Heart disease Surgical History History of cataract surgery History of hysterectomy History of left heart catheterization (02/19/11) History of right hip replacement Social History (Updated 02/26/22 @ 02:[address] Rosa Valladares MD) household members: none Smoking Status: Former smoker how long ago did patient quit smokin years ago alcohol intake: current alcohol intake frequency: holidays/special occasions only substance use type: does not use caffeine: Yes Type: coffee Number of servings: 1 ROS ROS Narrative Admission Review of Systems: CONSTITUTIONAL: No weight loss, fever, chills, + weakness or fatigue. HEENT: Eyes: No visual loss, blurred vision, double vision or yellow sclerae. Ears, Nose, Throat: No hearing loss, sneezing, congestion, runny nose or sore throat. SKIN: No rash or itching, lesions, wounds. CARDIOVASCULAR: No chest pain, chest pressure or chest discomfort, palpitations, edema, orthopnea, syncopal events. RESPIRATORY: No shortness of breath, cough or sputum, wheezing, hemoptysis. GASTROINTESTINAL: No anorexia, nausea, vomiting or diarrhea, abdominal pain, melena, BRBPR. GENITOURINARY: No dysuria, frequency, urgency or retention. NEUROLOGICAL: No headache, dizziness, syncope, paralysis, ataxia, numbness or tingling in the extremities, focal weakness, change in bowel or bladder control, seizure. MUSCULOSKELETAL: + muscle, back pain, joint pain or stiffness. HEMATOLOGIC: + anemia, bleeding or bruising. LYMPHATICS: No enlarged nodes. No history of splenectomy. PSYCHIATRIC: + history of depression or anxiety. ENDOCRINOLOGIC: No reports of sweating, cold or heat intolerance. No polyuria or polydipsia. ALLERGIES: No history of asthma, hives, eczema or rhinitis. Vital Signs Vital Signs Vital Signs: 02/25/22 23:49 02/25/22 23:48 02/25/22 23:55 Temperature 97.6 F L Temperature Source Temporal Pulse Rate 75 74 Respiratory Rate 14 16 Respiratory Effort Normal Respiratory Depth Normal Respiratory Pattern Normal Blood Pressure 155/89 H 155/89 H Blood Pressure Mean 111 111 Pulse Ox 96 97 Oxygen Delivery Method Room Air Room Air Room Air Weight Weight: 147 lb 7.828 oz Body Mass Index (BMI) 26.1 Physical Exam Narrative Physical Examination: General: Awakens to discussions/stimuli but fatigued, alert during discussions but as noted fatigued, oriented to self, place and recent events, remains c ooperative, laying in the ED bed, fatigued, currently rates right hip pain 8 out of 10 in severity. Skin: Normal color, normal turgor, no icterus, no cyanosis. HEENT: AT/NC, EOMI, PERRLA, mildly dry MM, no carotid bruits or JVD noted. Lungs: Mildly diminished, greater bases, appropriate effort no rales, ronchi or wheezing. Heart: Regular rate and rhythm; no gallop, rub audible, + SM. Abdomen: Soft, NTTP, ND, distant normal BS, no HSM. Extremities: No cyanosis, no clubbing, mild BL ankle nonpitting edema, peripheral pulses intact, no marked external rotation noted. Neurological: Awakens to discussions/stimuli but fatigued, alert during discussions but as noted fatigued, oriented as noted, cognitive function intact but notable fatigued; pupils equally reactive to light and accommodation, cr anial nerves grossly normal, moving all 4 extremities but limited RLE expected given fall with R hip fracture, strength accordingly severely globally decreased. Psychiatric: Affect appears fatigued, no acute evidence of depressive or anxiety feelings. Results Lab / Micro Data Result Diagrams: 02/26/22 00:13 02/26/22 00:13 Labs: Laboratory Results - last 24 hr 02/26/22 00:13: WBC 6.6, RBC 3.36 L, Hgb 9.9 L, Hct 30.4 L, MCV 90.5, MCH 29.5, MCHC 32.6, RDW Std Deviation 42.5, RDW Coeff of Tonie 12.9, Plt Count 242, MPV 10.1, Immature Gran % (Auto) 0.800, Neut % (Auto) 62.7, Lymph % (Auto) 24.8, [place] % (Auto) 9.1, Eos % (Auto) 2.1, Baso % (Auto) 0.5, Absolute Neuts (auto) 4.1, Absolute Lymphs (auto) 1.63, Nucleated RBC % 0 02/26/22 00:13: Sodium 130 L, Potassium 3.6, Chloride 95 L, Carbon Dioxide 26.0, Anion Gap 9, BUN 16, Creatinine 0.87, Estim Creat Clear Calc 40.53, Est GFR (MDRD) Af Amer 80, Est GFR (MDRD) Non-Af 66, BUN/Creatinine Ratio 18.4, Glucose 110 H, Calcium 8.6, Total Bilirubin 0.30, AST 20, ALT 18, Alkaline Phosphatase 59, Total Protein 6.6, Albumin 3.1 L, Globulin 3.5, Albumin/Globulin Ratio 0.9 Radiology Impression Femur X-Ray 02/26/22 00:00 IMPRESSION: 1. Complete right hip prosthesis without dislocation. 2. Presence of an oblique fracture of the proximal right femoral diaphysis, in the subtrochanteric region adjacent to the femoral stem of the right hip prosthesis. 3. Moderate demineralization. 4. Associated soft tissue swelling. Electronically Signed: Riaz Corea MD at 0:56 EDT , Pelvis X-Ray 02/26/22 00:00 IMPRESSION: 1. Complete right hip prosthesis without dislocation. 2. Presence of an oblique fracture adjacent to the femoral stem of the right hip prosthesis. 3. No pelvic bone fractures. 4. Mild demineralization. 5. Soft tissue swelling adjacent to the right femoral fracture. Electronically Signed: Riaz Corea MD at 0:59 EDT , Assessment & Plan Assessment/Plan (1) Periprosthetic intertrochanteric fracture of femur: PLAN: Plan The patient is an 81 y/o F w/ PMHx: Chronic hyponatremia, Chronic normocytic anemia, Hx RLE DVT, Hx NSPVT, HTN, HLD, Depression and Anxiety, Nonischemic cardiomyopathy, CAD, Former tobacco use, Hypothyroidism who presents to the [facility] ED on 02/26/22 with history of attempting to get up out of her chair with a fall from standing, landing on her carpet onto her right hip with inability to get up or bear weight following this with pain primarily in the right mid thigh region prompting ED evaluation. #1. General debility, right hip pain s/p mechanical fall w/ oblique fracture of the proximal right femoral diaphysis in the trochanteric region adjacent to femoral stem of the right hip prosthesis: Orthopedic surgery consulted from ED. Will admit to MS, maintain NPO, continue gentle IVFs, valente placement, monitor I/Os, frequent positioning, fall precautions, pain, anti-emetic regimen. PT/OT following operative intervention. CM consulted for discharge planning. Per NSQIP evaluation patient is moderate risk with average perioperative cardiac risk with recent cardiac evaluation. Most recent echocardiogram with improved EF and no history of PCI. Patient from a cardiac standpoint with recent cardiac visit 01/28/2022 with no episodes of chest pain, palpitation, chest pressure with unchanged chronic occasional shortness of breath with exertion walking up stairs but no orthopnea or PND. EKG with no acute evidence of ischemia. #2. Nonobstructive CAD: New low-dose aspirin, metoprolol, lisinopril, not on statin therapy, defer to outpatient. #3. Nonischemic cardiomyopathy: 06/11/2020 echocardiogram with normal LV size, LV systolic function, EF 60%, stage I diastolic dysfunction, mean AV gradient 13 mmHg, mild aortic stenosis. Continue low-dose aspirin, metoprolol, lisinopril, not on statin therapy. From reports of this most recent echo her systolic function has improved. #4. Chronic hyponatremia, unclear exact etiology: Admission Na 130, baseline 127-132 primarily, continue to trend. #5. Chronic normocytic anemia: Admission Hgb 9.9, baseline appears 10-11, continue to monitor. #6. Hypertension: Continue home regimen including metoprolol, lisinopril with hold parameters as needed, PRN hydralazine. #7. Hyperlipidemia: Not on statin therapy, defer to outpatient. #8. Anxiety and depression: We will continue patient home escitalopram regimen. #9. Hypothyroidism: Continue home synthroid regimen. #10. History DVT: History of prior right lower extremity DVT, not currently anticoagulated, initiate chemoprophylaxis following operative intervention. #11. DVT prophylaxis: SCDs, hold chemoprophylaxis pending evaluation by orthopedic surgery for possible OR today. #12. CODE status: Patient PRATIBHA is her daughter Becky and living will is currently in place. Discussed CODE status at length including difference between FULL code, DNR-CCA and DNR-CC status. Following discussions about the differences in these status, requested Full Code status. Advanced Care Planning Face to Face Time: 16 minutes. Charges/Coding Visit Charges Inpatient E&M: 19254 Init Hosp L3 Procedures Hospitalists Procedures: 82656 Advncd Care Plan 30 Min
[2022-02-26] MEDS: LORazepam 2 MG/ML Syringe 0.5 MG IV (01:43)
[2022-02-26] MEDS: Ketorolac 15 MG/ML Vial IV (01:43)
--- NOTE | 2022-02-26 01:44 | EKG12_ITS ---
Test Reason : DYSRHYTHMIA Blood Pressure : / mmHG Vent. Rate : 076 BPM Atrial Rate : 076 BPM P-R Int : 206 ms QRS Dur : 092 ms QT Int : 408 ms P-R-T Axes : 053 002 044 degrees QTc Int : 459 ms Normal sinus rhythm Nonspecific ST abnormality Abnormal ECG Confirmed by AMY CAVAZOS, ED ([id number]), city editor SIHLPI CEJA ([id number]) on 02/26/2022 11:27:11 A M Referred By: BRITTNEY Confirmed By:GRETA REYES MD
[2022-02-26] MEDS: 0.9% Normal Saline 1,000 ML 100 ML IV (04:38)
[2022-02-26] MEDS: 0.9% Saline Lock 10 ML Syringe IV (04:39)
[2022-02-26] MEDS: Vancomycin 1,000 MG in NS 180mls Q24 200 MG IV (06:35)
[2022-02-26 07:04] LABS: Absolute Lymphocyte Count 0.39 X10^3/uL (0.83-4.51); Absolute Neutrophil Count 7.4 X10^3/uL (2.0-7.7); Basophil# 0.01 X10^3/uL; Basophil% 0.1 % (0-1); Hematocrit 28.1 % (37-47); Hemoglobin 9.4 g/dL (12.0-15.0); Lymphocyte # 0.39 X10^3/ul (0.83-4.51); Lymphocyte % 4.7 % (19-41); Mean Corp Hgb Conc 33.5 g/dL (32-36); Mean Corpuscular Hgb 30.2 pg (27.0-32.0); Mean Corpuscular Volume 90.4 fL (81-99); Mean Platelet Vol. 9.9 fl (6.2-12.0); Monocyte# 0.46 X10^3/uL; Monocyte% 5.5 % (0-10); NRBC Flagged by Analyzer 0 % (0-5); Neutrophil # 7.43 X10^3/uL (2.7-7.7); Neutrophil % 89.2 % (47-70); POSITIVE DIFFERENTIAL YES; Platelet Count 211 K/mm3 (150-450); RBC Distribution Width CV 13.1 % (11.6-14.6); Red Blood Count 3.11 M/mm3 (4.2-5.4); White Blood Count 8.3 K/mm3 (4.4-11.0)
[2022-02-26 07:08] LABS: Differential Indicated SCAN CRITERIA MET
[2022-02-26 07:45] LABS: ALB/GLOB Ratio 0.9 RATIO (0.9-2.4); AST(SGOT) 21 U/L (15-37); Alanine Aminotransfer ALT/SGPT 16 U/L (13-56); Alkaline Phosphatase 59 U/L (45-117); Anion Gap 4 (5-15); BUN 13 mg/dL (7-18); BUN/Creat Ratio 16.5 RATIO (10-20); Calcium,Total 8.2 mg/dL (8.5-10.1); Chloride 96 mmol/L (98-107); Creatinine, Serum 0.79 mg/dL (0.55-1.02); EST Glomerular Filtration Rate 74 mL/min (>60); Est Glom Filt Rate - Afr Amer 89 mL/min (>60); Estimated Creatinine Clearance 33.71 ml/min; Globulin 3.3 g/dL (2.2-4.2); Glucose 131 mg/dL (74-106); Protein, Total 6.3 g/dL (6.4-8.2); Sodium Level 128 mmol/L (136-145)
[2022-02-26] MEDS: Metoprolol(XL)Succ 50 MG Tablet PO (10:16)
[2022-02-26] MEDS: Senna/Docusate Sodium 1 Tablet 2 TABLET PO ×2 (10:16→21:35)
[2022-02-26] MEDS: Escitalopram Oxalate 20 MG Tablet PO (10:17)
[2022-02-26] MEDS: Lisinopril 20 MG Tablet PO (10:17)
--- NOTE | 2022-02-26 10:35 | ECHOD_ITS ---
Reason For Study: PRE-OP HIP SURGERY Procedure This was a 2D Doppler, Color Flow transthoracic echocardiogram. The study was technically difficult. Exam performed with patient in supine position due to hip fracture. Exam performed portable in patient room. Left Ventricle Normal LV size. The estimated ejection fraction is 60 %. No evidence for diastolic dysfunction. No regional wall motion abnormalities noted. Right Ventricle Normal RV size. Normal systolic function. Atria The left atrium is moderately enlarged. The right atrium is mildly enlarged. No doppler evidence for ASD. Mitral Valve There is no mitral valve stenosis. Trivial mitral valve insufficiency. Tricuspid Valve There is no tricuspid stenosis. Mild tricuspid valve insufficiency. Pulmonary artery systolic pressure is 40-45 mmHg. Aortic Valve Moderate diffuse aortic valve thickening. Mild aortic stenosis. Mild (1+) aortic valve insufficiency. Pulmonic Valve There is no pulmonic valvular stenosis. No pulmonic valve insufficiency. Great Vessels Normal aortic root. Pericardium/Pleural No pericardial effusion. MMode/2D Measurements & Calculations LVIDd: 4.4 cm IVSd: 1.3 cm LVOT diam: 2.0 cm LVIDs: 2.9 cm LVPWd: 1.2 cm LVOT area: 3.2 cm2 RVDd: 4.2 cm FS: 34.0 % Ao root diam: 3.2 cm LAV(MOD-bp): 86.1 ml LVAd ap4: 30.8 cm2 LAV(MOD-bp) Indexed: 52.4 ml/m2 LVLd ap4: 7.1 cm LAV(MOD-sp2): 79.1 ml EDV(MOD-sp4): 108.2 ml LAV(MOD-sp4): 83.9 ml EDV(sp4-el): 112.9 ml LVAs ap4: 17.1 cm2 LVLs ap4: 6.0 cm ESV(MOD-sp4): 42.4 ml ESV(sp4-el): 41.7 ml EF(MOD-sp4): 60.8 % EF(sp4-el): 63.1 % SV(MOD-sp4): 65.8 ml SV(sp4-el): 71.2 ml LA A4 area: 25.3 cm2 LA dimension(2D): 3.5 cm RA A4 area: 21.0 cm2 Time Measurements MV dec time: 0.24 sec Doppler Measurements & Calculations MV E max jose: 66.5 cm/sec Lat Peak E' Jose: 12.2 cm/sec Med Peak E' Jose: 7.2 cm/sec MV A max jose: 76.7 cm/sec E/E' lat: 5.5 E/E' med: 9.2 MV E/A: 0.87 Ao V2 max: 271.6 cm/sec AI max jose: 465.5 cm/sec LV V1 max: 97.9 cm/sec Ao max P.5 mmHg AI max P.7 mmHg LV V1 max P.8 mmHg Ao V2 mean: 195.2 cm/sec LV V1 mean P.8 mmHg Ao mean P.6 mmHg AI dec slope: 349.4 cm/sec2 LV V1 mean: 60.8 cm/sec Ao V2 VTI: 58.5 cm AI P1/2t: 390.2 msec LV V1 VTI: 22.3 cm AGUSTIN(I,D): 1.2 cm2 AGUSTIN(V,D): 1.2 cm2 SV(LVOT): 72.2 ml PA V2 max: 94.1 cm/sec TR max jose: 306.3 cm/sec TR max P.5 mmHg ECHO/Echo Complete W/ Contrast Interpretation Summary The estimated ejection fraction is 60 %. No evidence for diastolic dysfunction. The left atrium is moderately enlarged. The right atrium is mildly enlarged. Trivial mitral valve insufficiency. Mild tricuspid valve insufficiency. Moderate diffuse aortic valve thickening. Mild aortic stenosis. Mild (1+) aortic valve insufficiency. Ordering Physician: Uche Louis Referring Physician: ZION MCNAMARA Performed By: Roxanne Wood RDCS
--- NOTE | 2022-02-26 11:08 | CASEMGMT ---
SW went to patient's room to complete assessment. However, patient was sleeping and friend was present. Patient's friend Benita was present and asked that SW not wake patient. SW did provide a list of SNF providers including quality and resource use data and consistent with the patient?s preferred geographic region, medical needs, and insurance network. SW explained that most of the time patient's with hip fractures have to go to a assisted facility for rehab. SW explained the facilities that are highlighted in pink are the ones that take patient's insurance so those are patient's options. Benita said patient's daughter will be at [facility] in a little bit. SW asked that she give her the list and if they have questions they can always ask for Social Work. Latha WAN
--- NOTE | 2022-02-26 12:33 | PN.HOSP_ITS ---
Documented by User: Yasmeen Ann NP, [employer] [employer] 02/26/22 12:45 Subjective Subjective Patient seen and examined. Currently resting comfortably, denies significant pain. Plan for OR this afternoon. Friend at bedside. Patient denies other symptoms or complaints. Objective Data Objective Data Vital Signs: Vital Signs Temp Pulse Resp BP Pulse Ox O2 Del Method O2 Flow Rate 99.4 F H 85 16 145/68 H 97 Nasal Cannula 2 02/26/22 09:55 02/26/22 10:16 02/26/22 09:55 02/26/22 10:16 02/26/22 09:55 02/26/22 09:55 02/26/22 09:55 Oxygen Flow Rate (L/min) 2 Oxygen Delivery Method Nasal Cannula Weight: 140 lb 10.479 oz Body Mass Index (BMI) 25.7 Intake & Output: Intake and Output for Last 24 Hours 02/24/22 02/25/22 02/26/22 23:59 23:59 23:59 Intake Total 850.67 / 850.67 Output Total 700 / 700 Balance 150.67 / 150.67 Lab / Micro Data Result Diagrams: 02/26/22 06:52 02/26/22 06:52 Labs: Laboratory Results - last 24 hr 02/26/22 00:13: WBC 6.6, RBC 3.36 L, Hgb 9.9 L, Hct 30.4 L, MCV 90.5, MCH 29.5, MCHC 32.6, RDW Std Deviation 42.5, RDW Coeff of Tonie 12.9, Plt Count 242, MPV 10.1, Immature Gran % (Auto) 0.800, Neut % (Auto) 62.7, Lymph % (Auto) 24.8, Emmet % (Auto) 9.1, Eos % (Auto) 2.1, Baso % (Auto) 0.5, Absolute Neuts (auto) 4.1, Absolute Lymphs (auto) 1.63, Nucleated RBC % 0 02/26/22 00:13: Sodium 130 L, Potassium 3.6, Chloride 95 L, Carbon Dioxide 26.0, Anion Gap 9, BUN 16, Creatinine 0.87, Estim Creat Clear Calc 40.53, Est GFR (MDRD) Af Amer 80, Est GFR (MDRD) Non-Af 66, BUN/Creatinine Ratio 18.4, Glucose 110 H, Calcium 8.6, Total Bilirubin 0.30, AST 20, ALT 18, Alkaline Phosphatase 59, Total Protein 6.6, Albumin 3.1 L, Globulin 3.5, Albumin/Globulin Ratio 0.9 02/26/22 06:52: WBC 8.3, RBC 3.11 L, Hgb 9.4 L, Hct 28.1 L, MCV 90.4, MCH 30.2, MCHC 33.5, RDW Std Deviation 43.0, RDW Coeff of Tonie 13.1, Plt Count 211, MPV 9.9, Immature Gran % (Auto) 0.500, Neut % (Auto) 89.2 H, Lymph % (Auto) 4.7 L, Emmet % (Auto) 5.5, Eos % (Auto) 0.0, Baso % (Auto) 0.1, Absolute Neuts (auto) 7.4, Absolute Lymphs (auto) 0.39 L, Nucleated RBC % 0, Differential Comment COMMENT 02/26/22 06:52: Sodium 128 L, Potassium 4.0, Chloride 96 L, Carbon Dioxide 28.0, Anion Gap 4 L, BUN 13, Creatinine 0.79, Estim Creat Clear Calc 33.71, Est GFR (MDRD) Af Amer 89, Est GFR (MDRD) Non-Af 74, BUN/Creatinine Ratio 16.5, Glucose 131 H, Calcium 8.2 L, Total Bilirubin 0.40, AST 21, ALT 16, Alkaline Phosphatase 59, Total Protein 6.3 L, Albumin 3.0 L, Globulin 3.3, Albumin/Globulin Ratio 0.9 02/26/22 06:52: Blood Type A POSITIVE, Antibody Screen NEGATIVE Radiography Diagnostic Testing: Radiology Impression Femur X-Ray 02/26/22 00:00 IMPRESSION: 1. Complete right hip prosthesis without dislocation. 2. Presence of an oblique fracture of the proximal right femoral diaphysis, in the subtrochanteric region adjacent to the femoral stem of the right hip prosthesis. 3. Moderate demineralization. 4. Associated soft tissue swelling. Electronically Signed: Riaz Corea MD at 0:56 EDT , Pelvis X-Ray 02/26/22 00:00 IMPRESSION: 1. Complete right hip prosthesis without dislocation. 2. Presence of an oblique fracture adjacent to the femoral stem of the right hip prosthesis. 3. No pelvic bone fractures. 4. Mild demineralization. 5. Soft tissue swelling adjacent to the right femoral fracture. Electronically Signed: Riaz Corea MD at 0:59 EDT , Echocardiogram 02/26/22 10:35 Interpretation Summary The estimated ejection fraction is 60 %. No evidence for diastolic dysfunction. The left atrium is moderately enlarged. The right atrium is mildly enlarged. Trivial mitral valve insufficiency. Mild tricuspid valve insufficiency. Moderate diffuse aortic valve thickening. Mild aortic stenosis. Mild (1+) aortic valve insufficiency. Ordering Physician: Uche Louis Referring Physician: ZION MCNAMARA Performed By: Roxanne Wood RDCS Physical Exam Const Constitutional Narrative: Mildly drowsy, appears comfortable. No evidence of distress. HEENT normocephalic Mouth: dry mucous membranes Eyes PERRL, EOMs intact bilaterally and conjunctivae normal Neck no lymphadenopathy Resp normal respiratory effort and clear to auscultation bilaterally Cardio regular rate, regular rhythm and no murmurs Peripheral Pulses: pulses 2+ throughout GI normal to inspection, nondistended, normoactive bowel sounds, non-tender and non-distended Extremity normal to inspection Skin no rashes or lesions noted Lesions: no lesions Rashes: no rashes Trauma: no lacerations or abrasions Neuro CN's II-XII intact bilaterally, no focal motor deficits, no sensory deficits noted and deep tendon reflexes 2+ bilaterally Psych mental status grossly normal and affect normal Assessment & Plan Assessment/Plan (1) Periprosthetic intertrochanteric fracture of femur: PLAN: Plan 1. Acute traumatic right oblique fracture through the proximal right femoral diaphysis in the subtrochanteric region adjacent to the femoral stem of the right hip prosthesis-orthopedic medicine consulted. Plan for ORIF this afterno on. As needed pain regimen. PT/OT. Case management consult for discharge planning. EKG without ischemia. Preoperative echocardiogram with EF 60%, mild aortic stenosis. Cleared medically for OR. 2. Nonobstructive CAD-on aspirin, metoprolol, lisinopril. 3. Nonischemic cardiomyopathy-repeat echo as noted above. Continue metoprolol, lisinopril. 4. Chronic hyponatremia-appears at baseline, trend BMP. If sodium trends down, will initiate further work-up including urine studies/cortisol/tsh. 5. Chronic normocytic anemia-stable, trend CBC. 6. Hypertension-stable, continue current regimen. 7. Hyperlipidemia-continue statin. 8. Anxiety/depression-on escitalopram. 9. Hypothyroidism-continue Synthroid. 10. History of DVT-no longer on anticoagulation. Pharmacologic prophylaxis per surgery. DVT prophylaxis-SCDs This patient was seen by CEM Rizzo under the supervision of Dr. Coleman. Documented by User: Dr. Elsa Coleman DO 02/26/22 15:10 Objective Data Lab / Micro Data Result Diagrams: 02/26/22 06:52 02/26/22 06:52 Assessment & Plan Assessment/Plan (1) Periprosthetic intertrochanteric fracture of femur: PLAN: Plan 1. Acute traumatic right oblique fracture through the proximal right femoral diaphysis in the subtrochanteric region adjacent to the femoral stem of the right hip prosthesis-orthopedic medicine consulted. Plan for ORIF this afternoon. As needed pain regimen. PT/OT. Case management consult for discharge planning. EKG without ischemia. Preoperative echocardiogram with EF 60%, mild aortic stenosis. Cleared medically for OR. 2. Nonobstructive CAD-on aspirin, metoprolol, lisinopril. 3. Nonischemic cardiomyopathy-repeat echo as noted above. Continue metoprolol, lisinopril. 4. Chronic hyponatremia-appears at baseline, trend BMP. If sodium trends down, will initiate further work-up including urine studies/cortisol/tsh. 5. Chronic normocytic anemia-stable, trend CBC. 6. Hypertension-stable, continue current regimen. 7. Hyperlipidemia-continue statin. 8. Anxiety/depression-on escitalopram. 9. Hypothyroidism-continue Synthroid. 10. History of DVT-no longer on anticoagulation. Pharmacologic prophylaxis per surgery. DVT prophylaxis-SCDs This patient was seen by CEM Rizzo under the supervision of Dr. Coleman. Patient was admitted after midnight. Pain is well controlled as long as the patient is not moving. Plan is for OR this afternoon per Dr. Matson's's team. Will likely need placement at discharge for rehab.
--- NOTE | 2022-02-26 13:07 | CON.PCM_ITS ---
Assessment & Plan Assessment/Plan (1) Periprosthetic intertrochanteric fracture of femur: PLAN: Plan Assessment and plan: 1. Presence of right right total hip with periprosthetic femur fracture: Patient is currently been n.p.o. Patient will remain nonweightbearing on the right lower extremity. Her pain has been well managed and she is currently comfortable in no acute distress. Patient does have previous history of DVT and will need to be appropriately treated for DVT prophylaxis postoperatively. Case was discussed with medicine and currently has been cleared for surgery. Case was discussed with Dr. Vishal Matson. Plan is for patient to undergo posterior open reduction internal fixation repair of prosthetic with revision of femoral stem. Case was discussed with patient's daughter Becky at bedside. Discussed to the best my ability to the patient and family procedure and postoperative recovery. Patient will have limited weightbearing postoperatively. Plan will be to proceed with surgery this afternoon. Dr. Matson would like to type and cross for 2 units. I did discuss and review with the patient all treatment options including surgical versus nonsurgical. Patient wishes to proceed with above-stated procedure. Potential risks, benefits, and complications of this procedure were discussed in detail including but not limited to , infection, nerve and blood vessel damage, persistent pain, numbness, tingling, paresthesias, blood clot, pulmonary embolism, and requirement for further surgery. The patient expressed full understanding has no further questions for the doctor. Patient does agree to proceed with the above-stated procedure and has signed the surgery consent form. This dictation was created using voice recognition software. Phonetic and/or grammatical errors may exist. HPI Consult Data Date of Consult: 02/26/22 HPI Narrative Reason for Consultation: Right hip periprosthetic fracture HPI Narrative: JENNY MARI, is a 81 F who presented to [facility] emergency room due to a fall while at home. Injury occurred on February 26, 2022. She was trying to get out of her chair when a blanket was wrapped causing her to fall. She landed on her hip. Patient reports that she was not able to bear weight and the squad had to take the patient to the emergency room. She denies hitting her head. Denies any other pain. She has had a previous right direct anterior total hip arthroplasty by Dr. Vishal Matson on December 16, 2016. Patient's daughter Becky and neighbor are present during consultation. She reports that she was doing well with her hip before the fall. She is currently being worked up for lumbar spine problems and they report that she was scheduled for an MRI of her lumbar spine next week. She is followed by Dr. Alvaro Forrest. Patient states her pain is well controlled currently in the bed. She does have pain in the right thigh with any movement. She currently denies any chest pain, shortness of breath, dizziness or lightheadedness, nausea or vomiting. Patient is currently followed by medicine. She did have an echocardiogram this morning. Medicine has cleared patient to proceed with surgery. She does have medical history pertinent for coronary artery disease, previous DVT in the right leg, nonsustained paroxysmal ventricular tachycardia, nonischemic cardiomyopathy, depression, hypertension. Patient does report she was living at home and was not requiring any ambulatory assistance. [facility] Medical History Arthritis Atherosclerosis of coronary artery of [place] heart without angina pectoris Compression fracture Depression Essential (primary) hypertension Myocarditis Non-ischemic cardiomyopathy Nonrheumatic aortic (valve) stenosis Nonsustained paroxysmal ventricular tachycardia Premature ventricular beats Right leg DVT Solar elastosis Home Medications aspirin 81 mg tablet,delayed release (Adult Aspirin Regimen) 81 mg PO DAILY 07/06/18 [History Last Taken Unknown] levothyroxine 100 mcg capsule 100 mcg PO TUTHSA 07/06/18 [History Last Taken Unknown] levothyroxine 112 mcg tablet 112 mcg PO DAILY 02/17/20 [History Last Taken Unknown] escitalopram oxalate 20 mg tablet 20 mg PO DAILY 07/29/21 [History Last Taken Unknown] lisinopril 20 mg tablet 20 mg PO BID #180 tabs 12/17/21 [Rx Last Taken Unknown] metoprolol succinate 50 mg tablet,extended release 24 hr 50 mg PO DAILY #90 tabs 12/17/21 [Rx Last Taken Unknown] Allergy/AdvReac Type Severity Reaction Status Date / Time imiquimod [From Aldara] Allergy Unknown Verified 02/25/22 23:49 Penicillins [PCN] Allergy Anaphylaxis Verified 02/25/22 23:49 ciprofloxacin [From Cipro] AdvReac Other Verified 02/25/22 23:49 furosemide AdvReac low saodium Verified 02/25/22 23:49 hydrochlorothiazide AdvReac hyponatremi Verified 02/25/22 23:49 a magnesium AdvReac Nausea Verified 02/25/22 23:49 prednisone AdvReac Upset Verified 02/25/22 23:49 Stomach Family History Mother Heart disease Father Heart disease Surgical History History of cataract surgery History of hysterectomy History of left heart catheterization (02/19/11) History of right hip replacement Social History household members: none Smoking Status: Former smoker how long ago did patient quit smokin years ago alcohol intake: current alcohol intake frequency: holidays/special occasions only substance use type: does not use caffeine: Yes Type: coffee Number of servings: 1 ROS Constitutional Constitutional: Reports systems reviewed and no addt'l complaints, except as documented Eyes Eyes: Reports systems reviewed and no addt'l complaints, except as documented Cardiovascular Cardiovascular: Reports systems reviewed and no addt'l complaints, except as documented Respiratory/Chest Respiratory/Chest: Reports systems reviewed and no addt'l complaints, except as documented Genitourinary Genitourinary: Reports systems reviewed and no addt'l complaints, except as documented Musculoskeletal Musculoskeletal: Reports limited range of motion and other Details: Pain with right leg with any range of motion. Unable to bear weight Neurologic Neurologic: Reports systems reviewed and no addt'l complaints, except as documented Psychiatric Psychiatric: Reports systems reviewed and no addt'l complaints, except as documented Endocrine Endocrinology: Reports systems reviewed and no addt'l complaints, except as documented Hematologic/Lymphatic Hematologic/Lymphatic: Reports systems reviewed and no addt'l complaints, except as documented Allergic/Immunologic Allergic/Immunologic: Reports systems reviewed and no addt'l complaints, except as documented Physical Exam Const alert, oriented x3 and no apparent distress Constitutional Narrative: This is a pleasant 81-year-old female resting in bed during examination. Patient's pain appears to be well maintained. She is in no acute distress. She does state that with any movement of the right lower extremity she does have reproducible right thigh pain. She is currently with tenderness to palpation with the right thigh. There is no ecchymosis. Right thigh is soft and supple. She was nontender to palpation right knee. Range of motion of the right hip was deferred secondary to periprosthetic fracture. Patient was able to plantarflex and dorsiflex right ankle. Sensation was intact to light touch to saphenous, sural, superficial/deep peroneal, tibial distribution. Pulses intact 2+ in the ankle and foot. X-rays were reviewed which does reveal presence of a right total hip arthroplasty. Patient does have periprosthetic fracture involving the right femoral stem. The cup appears well maintained with no evidence of loosening or lucencies. Screw is present. There is shortening of the right leg on the AP pelvis comparing lesser trochanters. General Appearance: cooperative and comfortable Medical Records Data Attestation: I reviewed the patient's medical records Lab / Micro Data Attestation: I reviewed the patient's lab results. Result Diagrams: 02/26/22 06:52 02/26/22 06:52 Labs: Laboratory Results - last 24 hr 02/26/22 00:13: WBC 6.6, RBC 3.36 L, Hgb 9.9 L, Hct 30.4 L, MCV 90.5, MCH 29.5, MCHC 32.6, RDW Std Deviation 42.5, RDW Coeff of Tonie 12.9, Plt Count 242, MPV 10.1, Immature Gran % (Auto) 0.800, Neut % (Auto) 62.7, Lymph % (Auto) 24.8, Caldwell % (Auto) 9.1, Eos % (Auto) 2.1, Baso % (Auto) 0.5, Absolute Neuts (auto) 4.1, Absolute Lymphs (auto) 1.63, Nucleated RBC % 0 02/26/22 00:13: Sodium 130 L, Potassium 3.6, Chloride 95 L, Carbon Dioxide 26.0, Anion Gap 9, BUN 16, Creatinine 0.87, Estim Creat Clear Calc 40.53, Est GFR (MDRD) Af Amer 80, Est GFR (MDRD) Non-Af 66, BUN/Creatinine Ratio 18.4, Glucose 110 H, Calcium 8.6, Total Bilirubin 0.30, AST 20, ALT 18, Alkaline Phosphatase 59, Total Protein 6.6, Albumin 3.1 L, Globulin 3.5, Albumin/Globulin Ratio 0.9 02/26/22 06:52: WBC 8.3, RBC 3.11 L, Hgb 9.4 L, Hct 28.1 L, MCV 90.4, MCH 30.2, MCHC 33.5, RDW Std Deviation 43.0, RDW Coeff of Tonie 13.1, Plt Count 211, MPV 9.9, Immature Gran % (Auto) 0.500, Neut % (Auto) 89.2 H, Lymph % (Auto) 4.7 L, Caldwell % (Auto) 5.5, Eos % (Auto) 0.0, Baso % (Auto) 0.1, Absolute Neuts (auto) 7.4, Absolute Lymphs (auto) 0.39 L, Nucleated RBC % 0, Differential Comment COMMENT 02/26/22 06:52: Sodium 128 L, Potassium 4.0, Chloride 96 L, Carbon Dioxide 28.0, Anion Gap 4 L, BUN 13, Creatinine 0.79, Estim Creat Clear Calc 33.71, Est GFR (MDRD) Af Amer 89, Est GFR (MDRD) Non-Af 74, BUN/Creatinine Ratio 16.5, Glucose 131 H, Calcium 8.2 L, Total Bilirubin 0.40, AST 21, ALT 16, Alkaline Phosphatase 59, Total Protein 6.3 L, Albumin 3.0 L, Globulin 3.3, Albumin/Globulin Ratio 0.9 02/26/22 06:52: Blood Type A POSITIVE, Antibody Screen NEGATIVE 02/26/22 06:52: Crossmatch See Detail Radiology Impression Femur X-Ray 02/26/22 00:00 IMPRESSION: 1. Complete right hip prosthesis without dislocation. 2. Presence of an oblique fracture of the proximal right femoral diaphysis, in the subtrochanteric region adjacent to the femoral stem of the right hip prosthesis. 3. Moderate demineralization. 4. Associated soft tissue swelling. Electronically Signed: Riaz Corea MD at 0:56 EDT , Pelvis X-Ray 02/26/22 00:00 IMPRESSION: 1. Complete right hip prosthesis without dislocation. 2. Presence of an oblique fracture adjacent to the femoral stem of the right hip prosthesis. 3. No pelvic bone fractures. 4. Mild demineralization. 5. Soft tissue swelling adjacent to the right femoral fracture. Electronically Signed: Riaz Corea MD at 0:59 EDT , Echocardiogram 02/26/22 10:35 Interpretation Summary The estimated ejection fraction is 60 %. No evidence for diastolic dysfunction. The left atrium is moderately enlarged. The right atrium is mildly enlarged. Trivial mitral valve insufficiency. Mild tricuspid valve insufficiency. Moderate diffuse aortic valve thickening. Mild aortic stenosis. Mild (1+) aortic valve insufficiency. Ordering Physician: Uche Louis Referring Physician: ZION MCNAMARA Performed By: Roxanne Wood RDCS
--- NOTE | 2022-02-26 13:17 | NURSING ---
Pt off of floor for procedure.
[2022-02-26] MEDS: Lactated Ringers 1,000 ML 15 ML IV (15:00)
[2022-02-26 15:51] LABS: Hematocrit 25.9 % (37-47); Hemoglobin 8.6 g/dL (12.0-15.0)
--- NOTE | 2022-02-26 16:00 | RAD_ITS ---
STUDY: X-RAY - RIGHT HIP REASON FOR EXAM: Female, 81 years old. Posterior ORIF hip. TECHNIQUE: 2 intraoperative views of the right hip. COMPARISON: Right femur, 02/26/2022. FINDINGS: Stable acetabular cup. There is now a longer anchoring device seen within the femoral shaft. There are 2 wire wraps about the proximal shaft for the fracture is seen on the prior study. Air is seen in the soft tissues. Please refer to the operative report for further details. RAD/Hip 1 view with Pelvis IMPRESSION: Internal fixation of a left femoral fracture in the OR. Electronically Signed: Tani Rudd DO at 17:08 EDT ,
[2022-02-26] MEDS: Clindamycin 600 MG/50 ML BAG 100 MG IV ×2 (17:15→23:30)
--- NOTE | 2022-02-26 17:28 | OP.PCM_ITS ---
Report of Operation Date of Procedure: 02/26/22 Pre-Operative Diagnosis: Right hip [place] B2 periprosthetic femur fracture Post-Operative Diagnosis: Right hip [place] B2 periprosthetic femur fracture Surgery/Procedure Performed:: Open reduction internal fixation right proximal femur periprosthetic fracture with revision hip replacement acetabular and femoral components. Description of Surgical Findings:: Stable hip for completion of case. Fracture properly reduced. Live x-ray was used to verify no anterior breach of the distal femoral component. Surgeon: Vishal Matson professional services specialist: Edgar Madsen Type of Anesthesia: General Anesthesiologist: Uche Louis Special Medications: Clindamycin preop and 2 hours Intra-Op. Vancomycin 1000 mg. Joint cocktail. Specimen's removed: 3 separate specimens were sent to microbiology Estimated Blood Loss (mL): 1000 Fluids Replaced: 1800 mL including 2 units of packed red blood cells. Description of Procedure: On the date of the procedure patient was examined in the preoperative area. History was verified. My physician administrative personal assistant had seen her previously. After verifying information in the history and physical consultation and reiterating risks of surgery which included but were not limited to blood loss, DVTs, PEs, nervous damage, infection, the risk of anesthesia including loss of life, dislocations leg length discrepancies and failure of fracture healing patient and family elected to proceed with surgical intervention. Implants: MDM metal liner alpha code E, Pato MDM alpha code E dual mobility X3 polyethylene liner Pato Biolox delta 28 mm -4 mm [place] 18 mm x 195 mm alevism modular stem Pato 23 mm +10 mm cone body On the date of the procedure patient was brought back to the operating room. Anesthesia assumed control of her C-spine and airway and remained controlled throughout the remainder of the procedure. She was anesthetized on the bed after appropriate anesthetization after controlling her airway she was transferred to the bed in the supine position. She was then rolled in the lateral decubitus position with the right hip in the air. All bony prominences identified well-padded and patient was appropriately secured and apposition. Right lower extremity was then prepped in a sterile fashion while the surgeon administrative personal assistant scrub. Upon reentering the room the right lower extremity was draped in a sterile orthopedic fashion timeout was called and everyone agreed upon the side, the site, the procedure to be performed, patient's identity and antibiotics given. Incision was marked out and then taken down through skin, subcutaneous tissue, fat, down to fascia. We then incised the fascia sharply in line with the incision. We carefully peeled back the posterior external rotators and made our arthrotomy to identify the joint. Once we did this we carefully dissected posteriorly along the femur in order to identify the fracture. Once we did this we turned our attention back to the hip or we dislocated the femur. A synovectomy was performed. The polyethylene liner was removed. We then identified the fracture fragment. A prophylactic cable was placed distal to the fracture fragment and the fracture fragment was reduced. We were almost certain based on the completely separate greater trochanteric fragment will need to use a trochanteric plate based on this we did not place additional cables at this time. We then externally rotated the femur to expose it and a small fragment of the proximal fracture fractured off attached to the gluteus chica. This gave us good exposure. We carefully reamed the femur to 18 mm. Once we reamed the femur and 18 mm retractors were removed from the wound and the wound was carefully irrigated out with normal saline. 6 L were used under low-pressure lavage. Once this was completed the stem 18 mm x 195 mm was open and impacted into place. X-ray was used to verify that there was not an anterior cortical breach in the femoral shaft. Once this was completed we directed our attention towards the remainder of the reconstruction. The MDM liner was placed after exposing the acetabulum. We then directed our attention back to the femur where the cone body was reamed for 23 mm cone body was an appropriate fit. It also matched the previous femoral stems offset. Once this was done the +10 mm cone body was used and impacted into place. Hip was reduced and he had equal leg lengths with a stable hip 90 degrees flexion and 40 degrees internal rotation. With a stable hip hip was dislocated. A cone body was placed. We provisionally fixed the proximal fragment attached to the gluteus chica and placed a cable around it. Hip was reduced after cleaning the trunnion and placing the femoral head in place and engaging the Mcdowell taper on the cone body and then packing it and then placing the screw in the appropriate anteversion. Once the hip was reduced we were able to adequately reduce the greater trochanteric fragment. Based on this we selected a medium 100 mm plate. The cable around the shaft was then placed through the plate and tightened down. We then carefully placed another cable proximally over the greater trochanteric plate. Unfortunately there was no adequate bone to place this cable so I did go around the neck of the femoral stem holding the greater trochanter into place. Once were done we again took the hip through range of motion. We were able to identify posterior capsule. Two #2 FiberWire sutures were placed in the posterior capsule drill holes were made for repair in the greater trochanter. Wound was copiously irrigated out with a 3-minute lavage of dilute Betadine followed by chlorhexidine solution followed by copious amounts of normal saline. We then repaired the posterior capsule. Fascia was then repaired using #1 Vicryl. Deep fatty layer was repaired using #1 Vicryl. Skin was repaired using 2-0 Vicryl and skin tesfaye. Once this was done sterile dressing was placed. Patient was placed in the supine position. Patient was then transferred to [facility] and transferred the PACU for recovery after being awakened by anesthesia. Postop plan: Patient will be 50% partial weightbearing no active abduction for a total of 6 weeks. Patient has history of DVT we will place her on Xarelto for 2 weeks postoperatively 10 mg daily followed by 81 mg aspirin twice daily. Strict posterior hip precautions for 3 months. During the course of the procedure the physician artists' booking representative (PE) played a vital role. Their intimate knowledge of my steps in the procedure aided in safe and expedient completion of the procedure. The PE played a vital rolls in positioning particularly in obtaining the appropriate lateral decubitus position. The PE was also vital in the retraction of soft tissues during the exposure and especially the femoral work as this is a vital part of the procedure to prevent complications and fractures. The PE was also vital and protecting soft tissues during times of bony cuts and reaming. He also played a vital role in closure with my direct supervision. The PE was also important during reduction and dislocation of the joint and trials intraoperatively. Complications No intraoperative complications Admit VTE Documentation VTE Present on Admission: No VTE Mechan Device Prophylaxis: SCD's and Thigh High ROLAND Hose VTE Pharm Prophylaxis ordered?: Yes
--- NOTE | 2022-02-26 18:27 | RAD_ITS ---
STUDY: X-RAY - PELVIS AND RIGHT HIP REASON FOR EXAM: Female, 81 years old. Post op, right hip. TECHNIQUE: 4 views of the pelvis and hip. COMPARISON: Right femur, 02/26/2022 FINDINGS: There is a non-specific bowel gas pattern. Normal visualized soft tissue structures. Normal bilateral iliac wings, sacroiliac joints and visualized sacrum. Normal bilateral superior and inferior pubic rami. Normal pubic symphysis. Normal bilateral ischial tuberosities. Degenerative changes of the left hip. Right total hip arthroplasty. The prosthetic components are intact and articulate normally with each other. There is a plate overlying the greater trochanter with multiple wire bands about the proximal shaft. The proximal femoral fracture seen on the prior study is in normal alignment. Air is seen within the surrounding soft tissues with lateral skin clips RAD/Hip Min 2 Views (Portable) IMPRESSION: Status post revision of a right total hip arthroplasty, as above. Electronically Signed: Tani Rudd DO at 19:11 EDT ,
[2022-02-26 18:35] LABS: Absolute Lymphocyte Count 1.07 X10^3/uL (0.83-4.51); Absolute Neutrophil Count 13.2 X10^3/uL (2.0-7.7); Basophil# 0.01 X10^3/uL; Basophil% 0.1 % (0-1); Hematocrit 31.6 % (37-47); Hemoglobin 10.4 g/dL (12.0-15.0); Lymphocyte # 1.07 X10^3/ul (0.83-4.51); Lymphocyte % 7.2 % (19-41); Mean Corp Hgb Conc 32.9 g/dL (32-36); Mean Corpuscular Hgb 29.9 pg (27.0-32.0); Mean Corpuscular Volume 90.8 fL (81-99); Mean Platelet Vol. 10.7 fl (6.2-12.0); NRBC Flagged by Analyzer 0 % (0-5); Neutrophil # 13.18 X10^3/uL (2.7-7.7); Neutrophil % 88.1 % (47-70); POSITIVE COUNT YES; Platelet Count 156 K/mm3 (150-450); RBC Distribution Width CV 13.7 % (11.6-14.6); Red Blood Count 3.48 M/mm3 (4.2-5.4)
[2022-02-26 19:30] LABS: Differential Indicated SCAN CRITERIA MET
[2022-02-26 19:40] LABS: Differential Comment SCANNED
[2022-02-26] MEDS: Acetaminophen 500 MG Tablet 1000 MG PO (21:35)
--- NOTE | 2022-02-26 23:43 | NURSING ---
nurse was able to get pt to Stand . Pt refused to move and dug her fingernaile into nurses hand. Pt would not move her feet at all. Pt put back to bed.
[2022-02-27] VITALS (7 sets, daily range): BP systolic 85–103; BP diastolic 37–53; PULSE 68–86; RESP 16–18; TEMP 36.3–37; O2SAT 92–97
[2022-02-27 04:55] LABS: Absolute Neutrophil Count 12.1 X10^3/uL (2.0-7.7); Basophil# 0.01 X10^3/uL; Basophil% 0.1 % (0-1); Hematocrit 24.4 % (37-47); Hemoglobin 8.2 g/dL (12.0-15.0); Lymphocyte % 2.9 % (19-41); Mean Corp Hgb Conc 33.6 g/dL (32-36); Mean Corpuscular Hgb 29.9 pg (27.0-32.0); Mean Corpuscular Volume 89.1 fL (81-99); Mean Platelet Vol. 10.4 fl (6.2-12.0); Monocyte# 1.34 X10^3/uL; Monocyte% 9.7 % (0-10); NRBC Flagged by Analyzer 0 % (0-5); Neutrophil # 12.06 X10^3/uL (2.7-7.7); Neutrophil % 86.9 % (47-70); POSITIVE DIFFERENTIAL YES; Platelet Count 152 K/mm3 (150-450); RBC Distribution Width SD 48.6 fl (35.1-43.9); Red Blood Count 2.74 M/mm3 (4.2-5.4); White Blood Count 13.9 K/mm3 (4.4-11.0)
[2022-02-27 05:01] LABS: Differential Indicated SCAN CRITERIA MET
[2022-02-27 05:12] LABS: Anisocytosis 1+
[2022-02-27] MEDS: Clindamycin 600 MG/50 ML BAG 100 MG IV (05:27)
[2022-02-27] MEDS: Levothyroxine 112 MCG Tablet PO (05:29)
[2022-02-27] MEDS: Acetaminophen 500 MG Tablet 1000 MG PO ×3 (05:29→21:53)
[2022-02-27] MEDS: Rivaroxaban 10 MG Tablet PO (05:29)
[2022-02-27 05:43] LABS: Anion Gap 8 (5-15); BUN 19 mg/dL (7-18); BUN/Creat Ratio 15.2 RATIO (10-20); Calcium,Total 7.6 mg/dL (8.5-10.1); Chloride 100 mmol/L (98-107); Creatinine, Serum 1.25 mg/dL (0.55-1.02); EST Glomerular Filtration Rate 44 mL/min (>60); Est Glom Filt Rate - Afr Amer 53 mL/min (>60); Estimated Creatinine Clearance 26.97 ml/min; Glucose 160 mg/dL (74-106); Potassium 4.3 mmol/L (3.5-5.1); Sodium Level 132 mmol/L (136-145)
[2022-02-27] MEDS: 0.9% Normal Saline 1,000 ML 500 ML IV (08:47)
[2022-02-27] MEDS: Ensure Surgery 237 ML LIQUID PO ×3 (08:53→18:58)
[2022-02-27] MEDS: oxyCODONE 5 MG Tablet PO ×2 (09:03→14:18)
--- NOTE | 2022-02-27 09:39 | CASEMGMT ---
Addendum entered by Latha Wilcox 02/27/22 10:37: VILMA confirmed with patient's daughter that patient would like to go to [facility]. Latha WAN Original Note: SW spoke with patient this am. SW asked about the list of facilities. Patient said she would prefer [facility]. SW will have referral sent once PT/OT sees patient. Latha WAN
--- NOTE | 2022-02-27 10:20 | CASEMGMT ---
Discharge Thread Milling Machine Set Up Operator Called Lucrecia at [facility]. Left over a VM. Faxed over a referral. Will follow up. Melissa Monroe Discharge Thread Milling Machine Set Up Operator
[2022-02-27] MEDS: Escitalopram Oxalate 20 MG Tablet PO (11:13)
[2022-02-27] MEDS: Senna/Docusate Sodium 1 Tablet 2 TABLET PO ×2 (11:13→21:54)
--- NOTE | 2022-02-27 11:42 | PN.HOSP_ITS ---
Documented by User: Yasmeen Ann NP, ZOO CARETAKER-C 02/27/22 11:51 Subjective Subjective Patient seen and examined. Denies significant pain. Complains of mild sore throat. Denies other symptoms or complaints. Requesting [facility] at discharge. Objective Data Objective Data Vital Signs: Vital Signs Temp Pulse Resp BP Pulse Ox O2 Del Method O2 Flow Rate 97.8 F 68 16 93/40 L 96 Room Air 2 02/27/22 10:45 02/27/22 10:45 02/27/22 10:45 02/27/22 10:45 02/27/22 10:45 02/27/22 10:45 02/26/22 09:55 Oxygen Flow Rate (L/min) 2 Oxygen Delivery Method Room Air Weight: 140 lb 10.479 oz Body Mass Index (BMI) 25.7 Intake & Output: Intake and Output for Last 24 Hours 02/25/22 02/26/22 02/27/22 23:59 23:59 23:59 Intake Total 1484.00 / 1534.00 1486.25 / 1486.25 Output Total 900 / 900 50 / 50 Balance 584.00 / 634.00 1436.25 / 1436.25 Lab / Micro Data Result Diagrams: 02/27/22 04:28 02/27/22 04:28 Labs: Laboratory Results - last 24 hr 02/26/22 06:52: Crossmatch See Detail 02/26/22 15:39: Hgb 8.6 L, Hct 25.9 L 02/26/22 18:17: WBC 15.0 H, RBC 3.48 L, Hgb 10.4 L, Hct 31.6 L, MCV 90.8, MCH 29.9, MCHC 32.9, RDW Std Deviation 46.0 H, RDW Coeff of Tonie 13.7, Plt Count 156, MPV 10.7, Immature Gran % (Auto) 0.600, Neut % (Auto) 88.1 H, Lymph % (Auto) 7.2 L, [place] % (Auto) 4.0, Eos % (Auto) 0.0, Baso % (Auto) 0.1, Absolute Neuts (auto) 13.2 H, Absolute Lymphs (auto) 1.07, Nucleated RBC % 0, Differential Comment SCANNED 02/27/22 04:28: WBC 13.9 H, RBC 2.74 L, Hgb 8.2 L, Hct 24.4 L, MCV 89.1, MCH 29.9, MCHC 33.6, RDW Std Deviation 48.6 H, RDW Coeff of Tonie 15.0 H, Plt Count 152, MPV 10.4, Immature Gran % (Auto) 0.400, Neut % (Auto) 86.9 H, Lymph % (Auto) 2.9 L, [place] % (Auto) 9.7, Eos % (Auto) 0.0, Baso % (Auto) 0.1, Absolute Neuts (auto) 12.1 H, Absolute Lymphs (auto) 0.40 L, Nucleated RBC % 0, Anisocytosis 1+ 02/27/22 04:28: Sodium 132 L, Potassium 4.3, Chloride 100, Carbon Dioxide 24.0, Anion Gap 8, BUN 19 H, Creatinine 1.25 H, Estim Creat Clear Calc 26.97, Est GFR (MDRD) Af Amer 53 L, Est GFR (MDRD) Non-Af 44 L, BUN/Creatinine Ratio 15.2, Glucose 160 H, Calcium 7.6 L Micro: Microbiology 02/26/22 16:02 Tissue - Hip Gram Stain - Final 02/26/22 16:02 Tissue - Hip Wound Culture - Preliminary No growth-Final to follow 02/26/22 15:58 Tissue - Hip Gram Stain - Final 02/26/22 15:58 Tissue - Hip Wound Culture - Preliminary No growth-Final to follow 02/26/22 15:56 Tissue - Hip Gram Stain - Final 02/26/22 15:56 Tissue - Hip Wound Culture - Preliminary No growth-Final to follow Radiography Diagnostic Testing: Radiology Impression Echocardiogram 02/26/22 10:35 Interpretation Summary The estimated ejection fraction is 60 %. No evidence for diastolic dysfunction. The left atrium is moderately enlarged. The right atrium is mildly enlarged. Trivial mitral valve insufficiency. Mild tricuspid valve insufficiency. Moderate diffuse aortic valve thickening. Mild aortic stenosis. Mild (1+) aortic valve insufficiency. ____ Ordering Physician: Uche Louis Referring Physician: ZION MCNAMARA Performed By: Roxanne Wood, KIM Hip/Pelvis X-Ray 02/26/22 16:00 IMPRESSION: Internal fixation of a left femoral fracture in the OR. Electronically Signed: Tani RuddDO at 17:08 EDT Reading Location ID and State: [facility] / [place] Tel [phone], Service support , Hip X-Ray 02/26/22 18:27 IMPRESSION: Status post revision of a right total hip arthroplasty, as above. Electronically Signed: Tani RuddDO at 19:11 EDT Reading Location ID and State: [facility] / [place] Tel [phone], Service support , Physical Exam Const alert and oriented x3 HEENT normocephalic and moist oral mucous membranes Eyes PERRL, EOMs intact bilaterally and conjunctivae normal Neck no lymphadenopathy Resp normal respiratory effort and clear to auscultation bilaterally Cardio regular rate, regular rhythm and no murmurs Peripheral Pulses: pulses 2+ throughout GI normal to inspection, nondistended, normoactive bowel sounds, non-tender and non-distended Extremity normal to inspection Skin no rashes or lesions noted Skin Narrative: Postop dressing intact. Lesions: no lesions Rashes: no rashes Trauma: no lacerations or abrasions Neuro CN's II-XII intact bilaterally, no focal motor deficits, no sensory deficits noted and deep tendon reflexes 2+ bilaterally Psych mental status grossly normal and affect normal Assessment & Plan Assessment/Plan (1) Periprosthetic intertrochanteric fracture of femur: (2) Postoperative hypotension: PLAN: Plan 1.? Acute traumatic right oblique fracture through the proximal right femoral diaphysis in the subtrochanteric region adjacent to the femoral stem of the right hip prosthesis-orthopedic medicine consulted.? Underwent ORIF right proximal femur periprosthetic fracture with revision hip replacement 02/26/[address] Matson.? As needed pain regimen.? PT/OT.? Case management consult for discharge planning.?Plan for [facility] pending insurance approval. 2.? Acute blood loss anemia on chronic normocytic anemia-blood loss anemia expected outcome related to #1. Patient received 2 units PRBC intraoperatively. Hemoglobin stable. Trend CBC. 3.? Nonischemic cardiomyopathy-preoperative echocardiogram with EF 60%, mild aortic stenosis.? Continue metoprolol, lisinopril. 4.? Chronic hyponatremia-appears at baseline, trend BMP.? Stable. 5.? Nonobstructive CAD-on aspirin, metoprolol, lisinopril. 6.? Hypertension-BP regimen on hold due to blood pressure trending low. Hold parameters in place. 7.? Hyperlipidemia-continue statin. 8.? Anxiety/depression-on escitalopram. 9.? Hypothyroidism-continue Synthroid. 10.? History of DVT-no longer on anticoagulation.? Initiated on Xarelto per surgery. 11. Mild leukocytosis-suspect reactive. Trending down. No evidence of infection. DVT prophylaxis-SCDs, Xarelto This patient was seen by LISBETH RizzoC under the supervision of Dr. Coleman. Documented by User: Dr. Elsa Coleman DO 02/27/22 15:37 Subjective Subjective Patient seen and examined. Denies significant pain. Complains of mild sore throat. Denies other symptoms or complaints. Requesting [facility] at discharge. This patient was seen in conjunction with Yasmeen Ann NP. The following represents my independent history and physical examination. Please see below for addendum above. Patient states she is feeling well. Her pain is much improved since surgery. She is not been up yet. Family at bedside. Some borderline blood pressures overnight and we have held her antihypertensives and given some gentle fluid boluses. Objective Data Lab / Micro Data Result Diagrams: 02/27/22 04:28 02/27/22 04:28 Physical Exam Const alert, oriented x3 and no apparent distress Constitutional Narrative: Elderly white female lying in bed, appears comfortable at this time, nontoxic, family at bedside HEENT head/scalp atraumatic and moist oral mucous membranes HEENT Narrative: Mallampati 1-2, no thrush Resp normal respiratory effort, no retractions, no use of accessory muscles and clear to auscultation bilaterally Auscultation: Negative for crackles, rales, rhonchi or wheezes Cardio regular rate, regular rhythm, S1 normal heart sound, S2 normal heart sound, no murmurs, no rub, no gallops, no clicks and no JVD GI normal to inspection, nondistended, normoactive bowel sounds, soft to palpation, non-tender and non-distended Extremity normal to inspection Extremity Narrative: Right lower extremity with postop hip dressing in place-clean dry and intact Neuro oriented x3, CN's II-XII intact bilaterally, no focal motor deficits and no sensory deficits noted Sensorium / Orientation: awake, alert, oriented to person, oriented to place and oriented to time Assessment & Plan Assessment/Plan (1) Periprosthetic intertrochanteric fracture of femur: (2) Postoperative hypotension: PLAN: Plan 1.? Acute traumatic right oblique fracture through the proximal right femoral diaphysis in the subtrochanteric region adjacent to the femoral stem of the right hip prosthesis-orthopedic medicine consulted.? Underwent ORIF right proximal femur periprosthetic fracture with revision hip replacement 02/26/[address] Matson.? As needed pain regimen.? PT/OT.? Case management consult for discharge planning.?Plan for [facility] pending insurance approval. 2.? Acute blood loss anemia on chronic normocytic anemia-blood loss anemia expected outcome related to #1. Patient received 2 units PRBC intraoperatively. Hemoglobin stable. Trend CBC. 3.? Nonischemic cardiomyopathy-preoperative echocardiogram with EF 60%, mild aortic stenosis.? Continue metoprolol, lisinopril. 4.? Chronic hyponatremia-appears at baseline, trend BMP.? Stable. 5.? Nonobstructive CAD-on aspirin, metoprolol, lisinopril. 6.? Hypertension-BP regimen on hold due to blood pressure trending low. Hold parameters in place. 7.? Hyperlipidemia-continue statin. 8.? Anxiety/depression-on escitalopram. 9.? Hypothyroidism-continue Synthroid. 10.? History of DVT-no longer on anticoagulation.? Initiated on Xarelto per surgery. 11. Mild leukocytosis-suspect reactive. Trending down. No evidence of infection. DVT prophylaxis-SCDs, Xarelto This patient was seen by CEM Rizzo under the supervision of Dr. Coleman. Assessment: Acute traumatic right oblique fracture of the proximal right femoral diaphysis Postoperative hypotension Nonobstructive CAD Nonischemic cardiomyopathy Chronic hyponatremia Chronic normocytic anemia Hypertension Hyperlipidemia Hypothyroidism Anxiety Depression History of DVT Plan: -Echo showed normal EF with a ejection fraction of 60% with bilateral atrial enlargement and mild aortic stenosis -Postop day 1 ORIF of the right proximal femoral periprosthetic fracture with revision of the hip replacement acetabular and femoral components -Postoperative cultures are positive for Gram stain gram-positive cocci -ID was consulted -Antibiotics initiated -Following cultures and patient may need a PICC line with 6 weeks of antibiotic if cultures are positive for infection -Gentle hydration with fluid bolus for postoperative hypotension -Will hold antihypertensives -Patient will need to go to rehab facility at discharge plan is for [facility] at discharge and the earliest she would be discharged this Wednesday however she is not medically ready for this at this time. Charges/Coding Visit Charges Inpatient E&M: 59730 Subs Hosp L2
--- NOTE | 2022-02-27 13:35 | PCM.CONS.GEN ---
Assessment & Plan Assessment/Plan (1) Periprosthetic intertrochanteric fracture of femur: PLAN: Now s/p R hip ORIF and revision 02/26/[address] Matson. Surg cx x3 now showing GPC on gram stain. Concern for PJI. Will start iv vanc. Requested micro lab hold cxs for 14 days. Suspect will need picc and 6 weeks iv abx, will see what cxs show. Will follow, thank you. Pt reports covid vaccination and booster up to date. D/w primary team and manager case management. HPI Consult Data Date of Consult: 02/27/22 HPI Narrative Reason for Consultation: (+) surg cx HPI Narrative: JENNY MARI, is a 81 F who presented late on 02/25 after fall at home onto R hip. Had been feeling fine prior to that. No weakness, no recent infection or abx. R hip replacement about 3 years ago, had been doing well with no issues. Was on floor for a few minutes, called EMS, taken to ED. Seen by ortho for fracture, taken to OR 02/26/[address] Matson for ORIF and revision. Surg cx now x3 with gram stain showing GPC. No fever. Full ROS performed and neg except as noted above. [facility] Medical History Arthritis Atherosclerosis of coronary artery of [place] heart without angina pectoris Compression fracture Depression Essential (primary) hypertension Myocarditis Non-ischemic cardiomyopathy Nonrheumatic aortic (valve) stenosis Nonsustained paroxysmal ventricular tachycardia Premature ventricular beats Right leg DVT Solar elastosis Home Medications aspirin 81 mg tablet,delayed release (Adult Aspirin Regimen) 81 mg PO DAILY 07/06/18 [History Last Taken Unknown] levothyroxine 100 mcg capsule 100 mcg PO TUTHSA 07/06/18 [History Last Taken Unknown] levothyroxine 112 mcg tablet 112 mcg PO DAILY 02/17/20 [History Last Taken Unknown] escitalopram oxalate 20 mg tablet 20 mg PO DAILY 07/29/21 [History Last Taken Unknown] lisinopril 20 mg tablet 20 mg PO BID #180 tabs 12/17/21 [Rx Last Taken Unknown] metoprolol succinate 50 mg tablet,extended release 24 hr 50 mg PO DAILY #90 tabs 12/17/21 [Rx Last Taken Unknown] Allergy/AdvReac Type Severity Reaction Status Date / Time imiquimod [From Aldara] Allergy Unknown Verified 02/25/22 23:49 Penicillins [PCN] Allergy Anaphylaxis Verified 02/25/22 23:49 ciprofloxacin [From Cipro] AdvReac Other Verified 02/25/22 23:49 furosemide AdvReac low saodium Verified 02/25/22 23:49 hydrochlorothiazide AdvReac hyponatremi Verified 02/25/22 23:49 a magnesium AdvReac Nausea Verified 02/25/22 23:49 prednisone AdvReac Upset Verified 02/25/22 23:49 Stomach Family History Mother Heart disease Father Heart disease Surgical History History of cataract surgery History of hysterectomy History of left heart catheterization (02/19/11) History of right hip replacement Social History household members: none Smoking Status: Former smoker how long ago did patient quit smokin years ago alcohol intake: current alcohol intake frequency: holidays/special occasions only substance use type: does not use caffeine: Yes Type: coffee Number of servings: 1 Physical Exam Const alert, oriented x3 and no apparent distress General Appearance: cooperative HEENT normocephalic Eyes PERRL and EOMs intact bilaterally Neck supple and No nodes Resp normal air movement and clear to auscultation bilaterally Cardio regular rate and regular rhythm GI soft to palpation, non-tender and non-distended Extremity General Extremity: Negative for edema Skin Skin Narrative: R hip bandaged Neuro CN's II-XII intact bilaterally Lab / Micro Data Attestation: I reviewed the patient's lab results. Result Diagrams: 02/27/22 04:28 02/27/22 04:28 Labs: Laboratory Results - last 24 hr 02/26/22 06:52: Crossmatch See Detail 02/26/22 15:39: Hgb 8.6 L, Hct 25.9 L 02/26/22 18:17: WBC 15.0 H, RBC 3.48 L, Hgb 10.4 L, Hct 31.6 L, MCV 90.8, MCH 29.9, MCHC 32.9, RDW Std Deviation 46.0 H, RDW Coeff of Tonie 13.7, Plt Count 156, MPV 10.7, Immature Gran % (Auto) 0.600, Neut % (Auto) 88.1 H, Lymph % (Auto) 7.2 L, [place] % (Auto) 4.0, Eos % (Auto) 0.0, Baso % (Auto) 0.1, Absolute Neuts (auto) 13.2 H, Absolute Lymphs (auto) 1.07, Nucleated RBC % 0, Differential Comment SCANNED 02/27/22 04:28: WBC 13.9 H, RBC 2.74 L, Hgb 8.2 L, Hct 24.4 L, MCV 89.1, MCH 29.9, MCHC 33.6, RDW Std Deviation 48.6 H, RDW Coeff of Tonie 15.0 H, Plt Count 152, MPV 10.4, Immature Gran % (Auto) 0.400, Neut % (Auto) 86.9 H, Lymph % (Auto) 2.9 L, [place] % (Auto) 9.7, Eos % (Auto) 0.0, Baso % (Auto) 0.1, Absolute Neuts (auto) 12.1 H, Absolute Lymphs (auto) 0.40 L, Nucleated RBC % 0, Anisocytosis 1+ 02/27/22 04:28: Sodium 132 L, Potassium 4.3, Chloride 100, Carbon Dioxide 24.0, Anion Gap 8, BUN 19 H, Creatinine 1.25 H, Estim Creat Clear Calc 26.97, Est GFR (MDRD) Af Amer 53 L, Est GFR (MDRD) Non-Af 44 L, BUN/Creatinine Ratio 15.2, Glucose 160 H, Calcium 7.6 L Micro: Microbiology 02/26/22 15:56 Tissue - Hip Gram Stain - Final 02/26/22 15:56 Tissue - Hip Wound Culture - Preliminary No growth-Final to follow 02/26/22 15:58 Tissue - Hip Gram Stain - Final 02/26/22 15:58 Tissue - Hip Wound Culture - Preliminary No growth-Final to follow 02/26/22 16:02 Tissue - Hip Gram Stain - Final 02/26/22 16:02 Tissue - Hip Wound Culture - Preliminary No growth-Final to follow Radiology Impression Hip/Pelvis X-Ray 02/26/22 16:00 IMPRESSION: Internal fixation of a left femoral fracture in the OR. 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 Electronically Signed: Tani Rudd DO at 19:11 EDT Reading [facility] [phone], Service support ,
--- NOTE | 2022-02-27 14:04 | CASEMGMT ---
Discharge Analytical Chemist Lucrecia from [facility] does not have beds currently open this weekend. Patient is not medically ready to be discharged. Discharge Analytical Chemist will follow up on Wednesday regarding beds at [facility]. Melissa Monroe Discharge Analytical Chemist
[2022-02-27] MEDS: 0.9% Saline Lock 10 ML Syringe IV ×2 (14:25→15:57)
--- NOTE | 2022-02-27 16:10 | PCM.RX.CS ---
Consult Pharmacy has been consulted to manage selected antiobiotic: Vancomycin Type of Consult: New start Suspected Infection: Skin/Soft tissue Prior Doses of Antibiotics Received/Current Regimen: 1000mg iv preop 02.26.22. Labs: Sodium 132 mmol/L (136-145) L 02/27/22 04:28 Potassium 4.3 mmol/L (3.5-5.1) 02/27/22 04:28 Chloride 100 mmol/L (98-107) 02/27/22 04:28 Carbon Dioxide 24.0 mmol/L (21.0-32.0) 02/27/22 04:28 Anion Gap 8 (5-15) 02/27/22 04:28 BUN 19 mg/dL (7-18) H 02/27/22 04:28 Creatinine 1.25 mg/dL (0.55-1.02) H 02/27/22 04:28 Est GFR (MDRD) Af Amer 53 mL/min (>60) L 02/27/22 04:28 Est GFR (MDRD) Non-Af 44 mL/min (>60) L 02/27/22 04:28 BUN/Creatinine Ratio 15.2 RATIO (10-20) 02/27/22 04:28 Glucose 160 mg/dL (74-106) H 02/27/22 04:28 Microbiology: Microbiology 02/26/22 15:56 Tissue - Hip Gram Stain - Final 02/26/22 15:56 Tissue - Hip Wound Culture - Preliminary No growth-Final to follow 02/26/22 15:58 Tissue - Hip Gram Stain - Final 02/26/22 15:58 Tissue - Hip Wound Culture - Preliminary No growth-Final to follow 02/26/22 16:02 Tissue - Hip Gram Stain - Final 02/26/22 16:02 Tissue - Hip Wound Culture - Preliminary No growth-Final to follow Weight used for dosin.8 kg Estimated Creatinine Clearance: 27ml/min Pharmacy Plan for Drug Dosing: Will start 750mg iv q24h per protocol. Trough level ordered for before 3rd dose on 03.01.22. Pharmacy Service will continue to monitor and adjust dosing as required. Follow-Up Labs: Trough Vancomycin - 03.01.22 @1230 before 1300 dose
--- NOTE | 2022-02-27 16:43 | PCM.PN.ORT ---
Subjective Subjective Patient is doing well today. No chest pain or shortness of breath. She reports her pain is well controlled she has some mild thigh muscle pain. Her right SCD does not appear to be working well her nurse has been working to get it fixed. Objective Data Objective Data Vital Signs: Vital Signs Temp Pulse Resp BP Pulse Ox O2 Del Method O2 Flow Rate 97.7 F L 75 16 100/37 L 92 Room Air 2 02/27/22 15:54 02/27/22 15:54 02/27/22 15:54 02/27/22 15:54 02/27/22 15:54 02/27/22 15:54 02/26/22 09:55 Oxygen Flow Rate (L/min) 2 Oxygen Delivery Method Room Air Weight: 140 lb 10.479 oz Body Mass Index (BMI) 25.7 Intake & Output: Intake and Output for Last 24 Hours 02/25/22 02/26/22 02/27/22 23:59 23:59 23:59 Intake Total 1484.00 / 1534.00 1846.25 / 1846.25 Output Total 900 / 900 50 / 50 Balance 584.00 / 634.00 1796.25 / 1796.25 Lab / Micro Data Attestation: I reviewed the patient's lab results. Result Diagrams: 02/27/22 04:28 02/27/22 04:28 Labs: Laboratory Results - last 24 hr 02/26/22 06:52: Crossmatch See Detail 02/26/22 18:17: WBC 15.0 H, RBC 3.48 L, Hgb 10.4 L, Hct 31.6 L, MCV 90.8, MCH 29.9, MCHC 32.9, RDW Std Deviation 46.0 H, RDW Coeff of Tonie 13.7, Plt Count 156, MPV 10.7, Immature Gran % (Auto) 0.600, Neut % (Auto) 88.1 H, Lymph % (Auto) 7.2 L, [place] % (Auto) 4.0, Eos % (Auto) 0.0, Baso % (Auto) 0.1, Absolute Neuts (auto) 13.2 H, Absolute Lymphs (auto) 1.07, Nucleated RBC % 0, Differential Comment SCANNED 02/27/22 04:28: WBC 13.9 H, RBC 2.74 L, Hgb 8.2 L, Hct 24.4 L, MCV 89.1, MCH 29.9, MCHC 33.6, RDW Std Deviation 48.6 H, RDW Coeff of Tonie 15.0 H, Plt Count 152, MPV 10.4, Immature Gran % (Auto) 0.400, Neut % (Auto) 86.9 H, Lymph % (Auto) 2.9 L, [place] % (Auto) 9.7, Eos % (Auto) 0.0, Baso % (Auto) 0.1, Absolute Neuts (auto) 12.1 H, Absolute Lymphs (auto) 0.40 L, Nucleated RBC % 0, Anisocytosis 1+ 02/27/22 04:28: Sodium 132 L, Potassium 4.3, Chloride 100, Carbon Dioxide 24.0, Anion Gap 8, BUN 19 H, Creatinine 1.25 H, Estim Creat Clear Calc 26.97, Est GFR (MDRD) Af Amer 53 L, Est GFR (MDRD) Non-Af 44 L, BUN/Creatinine Ratio 15.2, Glucose 160 H, Calcium 7.6 L Micro: Microbiology 02/26/22 15:56 Tissue - Hip Gram Stain - Final 02/26/22 15:56 Tissue - Hip Wound Culture - Preliminary No growth-Final to follow 02/26/22 15:58 Tissue - Hip Gram Stain - Final 02/26/22 15:58 Tissue - Hip Wound Culture - Preliminary No growth-Final to follow 02/26/22 16:02 Tissue - Hip Gram Stain - Final 02/26/22 16:02 Tissue - Hip Wound Culture - Preliminary No growth-Final to follow Radiography Diagnostic Testing: Radiology Impression Hip/Pelvis X-Ray 02/26/22 16:00 IMPRESSION: Internal fixation of a left femoral fracture in the OR. 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 Electronically Signed: Tani Rudd DO at 19:11 EDT Reading Location ID and State: [facility] / [place] Tel [phone], Service support , Physical Exam Const alert and oriented x3 Extremity Extremity Narrative: Right lower extremity: Dressing is clean dry and intact Sensations intact to light touch saphenous, sural, superficial peroneal, deep peroneal, and tibial distributions Motors intact EHL, DF, PF calves are soft and supple Assessment & Plan Assessment/Plan (1) Periprosthetic intertrochanteric fracture of femur: PLAN: Postop day 1 right hip revision with ORIF periprosthetic fracture 1. DVT prophylaxis: Xarelto for 2 weeks followed by aspirin for 2 weeks due to previous DVT 2. Pain control: Per primary service, pain currently controlled 3. Anemia: Patient had preoperative anemia chronically she did require blood transfusion related to intraoperative blood loss. 4. Cultures: Gram stains came back positive for gram-positive cocci x3. Cultures have been negative so far. Infectious disease has been consulted and patient is started on IV antibiotics. We will monitor cultures. Plan is to hold cultures for 14 days to evaluate potential need for further antibiotics or decrease scope of antibiotics. This was discussed with the patient and her family which was at bedside. They demonstrated understanding. Appreciate infectious disease consultation. 5. Therapy: Posterior hip precautions. 50% weightbearing on operative side. Must use walker or cane for least 6 weeks postop, no active abduction for 6 weeks postop 6. Disposition: Currently patient is not ready for discharge. Plan is for skilled facility upon discharge where she can get therapy and IV antibiotics. [place] can be removed on postoperative day 12. Patient can shower as long as she has occlusive dressing. Sterile dressings are removed on postop day 5 can be left open to air if incision is clean dry and intact. Follow-up in orthopedic office in 2 weeks for wound check and x-ray check. [facility] Office:
--- NOTE | 2022-02-27 18:58 | NURSING ---
Reviewed charting with Brit BUSTAMANTE
[2022-02-27] MEDS: Doxycycline 100 MG CAPSULE PO (21:54)
[2022-02-28] VITALS (15 sets, daily range): BP systolic 122–169; BP diastolic 52–98; PULSE 80–91; RESP 16–18; TEMP 36.6–37.6; O2SAT 94–99
[2022-02-28] MEDS: oxyCODONE 5 MG Tablet PO (02:58)
[2022-02-28] MEDS: Acetaminophen 500 MG Tablet 1000 MG PO ×3 (06:00→21:40)
[2022-02-28] MEDS: Levothyroxine 100 MCG Tablet PO (06:02)
[2022-02-28] MEDS: Rivaroxaban 10 MG Tablet PO (06:04)
[2022-02-28 06:57] LABS: Absolute Lymphocyte Count 0.61 X10^3/uL (0.83-4.51); Absolute Neutrophil Count 8.7 X10^3/uL (2.0-7.7); Hematocrit 19.4 % (37-47); Hemoglobin 6.6 g/dL (12.0-15.0); Lymphocyte # 0.61 X10^3/ul (0.83-4.51); Lymphocyte % 5.9 % (19-41); Mean Corpuscular Hgb 30.1 pg (27.0-32.0); Mean Corpuscular Volume 88.6 fL (81-99); Mean Platelet Vol. 10.4 fl (6.2-12.0); Monocyte% 8.7 % (0-10); NRBC Flagged by Analyzer 0 % (0-5); Neutrophil # 8.66 X10^3/uL (2.7-7.7); Neutrophil % 84.2 % (47-70); Platelet Count 148 K/mm3 (150-450); RBC Distribution Width CV 14.6 % (11.6-14.6); RBC Distribution Width SD 47.2 fl (35.1-43.9); Red Blood Count 2.19 M/mm3 (4.2-5.4); White Blood Count 10.3 K/mm3 (4.4-11.0)
[2022-02-28 07:11] LABS: Anion Gap 9 (5-15); BUN 38 mg/dL (7-18); BUN/Creat Ratio 21.3 RATIO (10-20); Calcium,Total 7.8 mg/dL (8.5-10.1); Chloride 94 mmol/L (98-107); Creatinine, Serum 1.78 mg/dL (0.55-1.02); EST Glomerular Filtration Rate 29 mL/min (>60); Est Glom Filt Rate - Afr Amer 35 mL/min (>60); Estimated Creatinine Clearance 18.94 ml/min; Glucose 128 mg/dL (74-106); Potassium 3.9 mmol/L (3.5-5.1); Sodium Level 128 mmol/L (136-145)
--- NOTE | 2022-02-28 08:06 | PCM.RX.CS ---
Consult Pharmacy has been consulted to manage selected antiobiotic: Vancomycin Type of Consult: Follow-up Suspected Infection: Skin/Soft tissue Prior Doses of Antibiotics Received/Current Regimen: CURRENT DOSE IS VANC 750MG Q24H Labs: Sodium 128 mmol/L (136-145) L 02/28/22 06:35 Potassium 3.9 mmol/L (3.5-5.1) 02/28/22 06:35 Chloride 94 mmol/L (98-107) L 02/28/22 06:35 Carbon Dioxide 25.0 mmol/L (21.0-32.0) 02/28/22 06:35 Anion Gap 9 (5-15) 02/28/22 06:35 BUN 38 mg/dL (7-18) H 02/28/22 06:35 Creatinine 1.78 mg/dL (0.55-1.02) H 02/28/22 06:35 Est GFR (MDRD) Af Amer 35 mL/min (>60) L 02/28/22 06:35 Est GFR (MDRD) Non-Af 29 mL/min (>60) L 02/28/22 06:35 BUN/Creatinine Ratio 21.3 RATIO (10-20) H 02/28/22 06:35 Glucose 128 mg/dL (74-106) H 02/28/22 06:35 Microbiology: Microbiology 02/26/22 15:56 Tissue - Hip Gram Stain - Final 02/26/22 15:56 Tissue - Hip Wound Culture - Preliminary No growth-Final to follow 02/26/22 15:58 Tissue - Hip Gram Stain - Final 02/26/22 15:58 Tissue - Hip Wound Culture - Preliminary No growth-Final to follow 02/26/22 16:02 Tissue - Hip Gram Stain - Final 02/26/22 16:02 Tissue - Hip Wound Culture - Preliminary No growth-Final to follow Weight used for dosin.1 kg Estimated Creatinine Clearance: 19ML/MIN Goal Trough: 15-20 mcg/mL Pharmacy Plan for Drug Dosing: The patient's SCr increased to 1.78 today (was 1.25 yesterday and 0.79 the day before that) and CrCl is down to 19ml/min. Will d/c current scheduled dose and get a vanc random level today at 14:00 which is 24 hrs after the last dose. Will use that random level to determine if a dose should be given today. Pharmacy Service will continue to monitor and adjust dosing as required. Follow-Up Labs: Trough Vancomycin - random Labs to be done on [date and time ordered]: 02/28 14:00
[2022-02-28] MEDS: Doxycycline 100 MG CAPSULE PO ×2 (08:41→21:40)
[2022-02-28] MEDS: Escitalopram Oxalate 20 MG Tablet PO (08:41)
[2022-02-28] MEDS: Senna/Docusate Sodium 1 Tablet 2 TABLET PO (08:41)
[2022-02-28] MEDS: Aspirin E.C. 81 MG Tablet PO (08:41)
[2022-02-28] MEDS: Ensure Surgery 237 ML LIQUID PO ×3 (08:41→16:20)
--- NOTE | 2022-02-28 09:54 | PN.ORTHO_ITS ---
Subjective Subjective Patient overall feels well. She has tenderness in the right thigh. No chest pain or shortness of breath this morning. Not requiring oxygen. Daughter is at bedside. Objective Data Objective Data Vital Signs: Vital Signs Temp Pulse Resp BP Pulse Ox O2 Del Method O2 Flow Rate 98.8 F 85 18 144/60 H 94 Room Air 2 02/28/22 08:50 02/28/22 08:50 02/28/22 08:50 02/28/22 08:50 02/28/22 09:42 02/28/22 09:42 02/26/22 09:55 Oxygen Flow Rate (L/min) 2 Oxygen Delivery Method Room Air Weight: 150 lb 2.157 oz Body Mass Index (BMI) 25.7 Intake & Output: Intake and Output for Last 24 Hours 02/26/22 02/27/22 02/28/22 23:59 23:59 23:59 Intake Total 1484.00 / 1534.00 2351.25 / 2871.25 1020 / 1020 Output Total 900 / 900 50 / 50 250 / 250 Balance 584.00 / 634.00 2301.25 / 2821.25 770 / 770 Lab / Micro Data Attestation: I reviewed the patient's lab results. Result Diagrams: 02/28/22 06:35 02/28/22 06:35 Labs: Laboratory Results - last 24 hr 02/26/22 06:52: Crossmatch See Detail 02/28/22 06:35: WBC 10.3, RBC 2.19 L, Hgb 6.6 L, Hct 19.4 L, MCV 88.6, MCH 30.1, MCHC 34.0, RDW Std Deviation 47.2 H, RDW Coeff of Tonie 14.6, Plt Count 148 L, MPV 10.4, Immature Gran % (Auto) 1.200 H, Neut % (Auto) 84.2 H, Lymph % (Auto) 5.9 L , [place] % (Auto) 8.7, Eos % (Auto) 0.0, Baso % (Auto) 0.0, Absolute Neuts (auto) 8.7 H, Absolute Lymphs (auto) 0.61 L, Nucleated RBC % 0 02/28/22 06:35: Sodium 128 L, Potassium 3.9, Chloride 94 L, Carbon Dioxide 25.0, Anion Gap 9, BUN 38 H, Creatinine 1.78 H, Estim Creat Clear Calc 18.94, Est GFR (MDRD) Af Amer 35 L, Est GFR (MDRD) Non-Af 29 L, BUN/Creatinine Ratio 21.3 H, Glucose 128 H, Calcium 7.8 L Micro: Microbiology 02/26/22 15:56 Tissue - Hip Gram Stain - Final 02/26/22 15:56 Tissue - Hip Wound Culture - Preliminary No growth-Final to follow 02/26/22 15:58 Tissue - Hip Gram Stain - Final 02/26/22 15:58 Tissue - Hip Wound Culture - Preliminary No growth-Final to follow 02/26/22 16:02 Tissue - Hip Gram Stain - Final 02/26/22 16:02 Tissue - Hip Wound Culture - Preliminary No growth-Final to follow Physical Exam Const alert, oriented x3 and no apparent distress Extremity Extremity Narrative: Right lower extremity: Dressing is clean dry and intact Sensations intact to light touch saphenous, sural, superficial peroneal, deep peroneal, and tibial distributions Motors intact EHL, DF, PF calves are soft and supple Thigh is soft and supple. Moderate tenderness palpation. No excessive ecchymosis. Assessment & Plan Assessment/Plan (1) Periprosthetic intertrochanteric fracture of femur: PLAN: Postop day 2 right hip revision with ORIF periprosthetic fracture 1.? DVT prophylaxis: Xarelto for 2 weeks followed by aspirin for 2 weeks due to previous DVT 2.? Pain control: Per primary service, pain currently controlled 3.? Anemia: Patient had preoperative anemia chronically she did require blood transfusion related to intraoperative blood loss. Hemoglobin is 6.6 this mo rning. Medicine is checking occult blood. Additionally she had hypotension yesterday and did receive a bolus of fluids. Her thigh is soft and supple without signs of excessive blood pooling. Likely related to postsurgical changes as well as delusional in nature. Receiving packed red blood cells today. Being treated by medicine service. 4.? Cultures: Gram stains came back positive for gram-positive cocci x3.? Cultures have been negative so far.? Infectious disease has been consulted and patient is started on IV antibiotics.? We will monitor cultures.? Plan is to hold cultures for 14 days to evaluate potential need for further antibiotics or decrease scope of antibiotics.? This was discussed with the patient and her family which was at bedside.? They demonstrated understanding.? Appreciate infectious disease consultation. 5.? Therapy: Posterior hip precautions.? 50% weightbearing on operative side.? Must use walker or cane for least 6 weeks postop, no active abduction for 6 weeks postop 6.? Postop hypotension: Occurred yesterday patient received bolus responded well. Currently vital signs are stable. Patient is on room air. Disposition: Currently patient is not ready for discharge.? Plan is for skilled facility upon discharge where she can get therapy and IV antibiotics.? [place] can be removed on postoperative day 12.? Patient can shower as long as she has occlusive dressing.? Sterile dressings are removed on postop day 5 can be left open to air if incision is clean dry and intact.? Follow-up in orthopedic office in 2 weeks for wound check and x-ray check. [facility] Office:
[2022-02-28] MEDS: Pantoprazole Sodium 40 MG Tablet PO (11:48)
--- NOTE | 2022-02-28 12:29 | PCM.PN.HOSP ---
Documented by User: Yasmeen Ann NP, SYSTEMS INTEGRATION MANAGER-C 02/28/22 12:39 Subjective Subjective Patient seen and examined. Complains of acid reflux. Denies significant pain. Denies lightheadedness, dizziness, shortness of breath. Receiving blood transfusion. Objective Data Objective Data Vital Signs: Vital Signs Temp Pulse Resp BP Pulse Ox O2 Del Method O2 Flow Rate 98.4 F 85 18 129/79 H 95 Room Air 2 02/28/22 11:55 02/28/22 11:55 02/28/22 11:55 02/28/22 11:55 02/28/22 11:55 02/28/22 11:55 02/26/22 09:55 Oxygen Flow Rate (L/min) 2 Oxygen Delivery Method Room Air Weight: 150 lb 2.157 oz Body Mass Index (BMI) 25.7 Intake & Output: Intake and Output for Last 24 Hours 02/26/22 02/27/22 02/28/22 23:59 23:59 23:59 Intake Total 1484.00 / 1534.00 2351.25 / 2871.25 1900 / 1900 Output Total 900 / 900 50 / 50 250 / 250 Balance 584.00 / 634.00 2301.25 / 2821.25 1650 / 1650 Lab / Micro Data Result Diagrams: 02/28/22 06:35 02/28/22 06:35 Labs: Laboratory Results - last 24 hr 02/26/22 06:52: Crossmatch See Detail 02/28/22 06:35: WBC 10.3, RBC 2.19 L, Hgb 6.6 L, Hct 19.4 L, MCV 88.6, MCH 30.1, MCHC 34.0, RDW Std Deviation 47.2 H, RDW Coeff of Tonie 14.6, Plt Count 148 L, MPV 10.4, Immature Gran % (Auto) 1.200 H, Neut % (Auto) 84.2 H, Lymph % (Auto) 5.9 L, [place] % (Auto) 8.7, Eos % (Auto) 0.0, Baso % (Auto) 0.0, Absolute Neuts (auto) 8.7 H, Absolute Lymphs (auto) 0.61 L, Nucleated RBC % 0 02/28/22 06:35: Sodium 128 L, Potassium 3.9, Chloride 94 L, Carbon Dioxide 25.0, Anion Gap 9, BUN 38 H, Creatinine 1.78 H, Estim Creat Clear Calc 18.94, Est GFR (MDRD) Af Amer 35 L, Est GFR (MDRD) Non-Af 29 L, BUN/Creatinine Ratio 21.3 H, Glucose 128 H, Calcium 7.8 L Micro: Microbiology 02/26/22 15:56 Tissue - Hip Gram Stain - Final 02/26/22 15:56 Tissue - Hip Wound Culture - Preliminary No growth-Final to follow 02/26/22 15:58 Tissue - Hip Gram Stain - Final 02/26/22 15:58 Tissue - Hip Wound Culture - Preliminary No growth-Final to follow 02/26/22 16:02 Tissue - Hip Gram Stain - Final 02/26/22 16:02 Tissue - Hip Wound Culture - Preliminary No growth-Final to follow Physical Exam Const alert, oriented x3 and no apparent distress Orientation / Consciousness: awake, oriented to person, oriented to place and oriented to time HEENT normocephalic and moist oral mucous membranes Eyes PERRL, EOMs intact bilaterally and conjunctivae normal Neck no lymphadenopathy Resp normal respiratory effort and clear to auscultation bilaterally Cardio regular rate, regular rhythm and no murmurs Peripheral Pulses: pulses 2+ throughout GI normal to inspection, nondistended, normoactive bowel sounds, non-tender and non-distended Extremity normal to inspection Skin no rashes or lesions noted Skin Narrative: Right hip dressing intact. Edematous however no significant ecchymosis. No noted hematoma. Lesions: no lesions Rashes: no rashes Trauma: no lacerations or abrasions Neuro CN's II-XII intact bilaterally, no focal motor deficits, no sensory deficits noted and deep tendon reflexes 2+ bilaterally Psych mental status grossly normal and affect normal Assessment & Plan Assessment/Plan (1) Periprosthetic intertrochanteric fracture of femur: (2) Acute blood loss anemia: (3) Guaiac positive stools: PLAN: Plan 1.? Acute traumatic right oblique fracture through the proximal right femoral diaphysis in the subtrochanteric region adjacent to the femoral stem of the right hip prosthesis-orthopedic medicine consulted.? Underwent ORIF right proximal femur periprosthetic fracture with revision hip replacement 02/26/[address] Matson.? As needed pain regimen.? PT/OT.? Case management consult for discharge planning.?Plan for [facility] pending insurance approval. Surgical culture is growing gram-positive cocci. Concerning for PTI. On IV vancomycin. ID following. 2.? Acute blood loss anemia on chronic normocytic anemia-blood loss anemia expected outcome related to #1.? Likely component of hemodilution as well. Additional 2 units PRBC ordered for hemoglobin 6.6. Trend CBC. Check stool for occult blood. 3.? Postoperative hypotension-resolved following fluid bolus. Antihypertensive regimen. 4. Nonischemic cardiomyopathy-preoperative echocardiogram with EF 60%, mild aortic stenosis.? On metoprolol, lisinopril. Currently held. 5.? Chronic hyponatremia-appears at baseline, trend BMP.? 6.? Nonobstructive CAD-on aspirin, metoprolol, lisinopril. BP regimen on hold. 7.? Hypertension-BP regimen on hold due to blood pressure trending low.? Hold parameters in place. BP improved. 8.? Hyperlipidemia-continue statin. 9.? Anxiety/depression-on escitalopram. 10.? Hypothyroidism-continue Synthroid. 11.? History of DVT-no longer on anticoagulation.? Initiated on Xarelto per surgery. DVT prophylaxis-SCDs, Xarelto This patient was seen by LISBETH RizzoC under the supervision of Dr. Coleman. Documented by User: Dr. Elsa Coleman DO 02/28/22 14:34 Subjective Subjective Patient seen and examined. Complains of acid reflux. Denies significant pain. Denies lightheadedness, dizziness, shortness of breath. Receiving blood transfusion. This patient was seen in conjunction with Yasmeen Ann NP. The following represents my independent physical examination. Please see below for addendum the above. Patient states she is overall comfortable with regards to her right hip pain. No significant issues overnight. Her daughter is at the bedside and we discussed her anemia and blood transfusion. Blood pressures have been good. Dr. Matson at bedside. Patient has evidently developed some emesis since I saw her this morning that was nonbloody and not consistent with coffee grounds. 2 reported emesis. Patient's only complaint this morning was fatigue and she states that she has been up since 230 last night. Objective Data Lab / Micro Data Result Diagrams: 02/28/22 06:35 02/28/22 06:35 Physical Exam Const alert, oriented x3 and no apparent distress Constitutional Narrative: Elderly white female lying in bed, appears comfortable at this time, nontoxic, daughter is at bedside, Dr. Matson is at bedside, patient appears a bit pale this morning however is appropriately interactive HEENT head/scalp atraumatic, moist oral mucous membranes and oropharynx normal Eyes PERRL and EOMs intact bilaterally Eyes Narrative: Conjunctiva are pale, no scleral icterus Neck no lymphadenopathy, supple and no JVD Neck Narrative: Trachea midline, no thyroid lodgment Resp normal respiratory effort, no retractions, no use of accessory muscles and clear to auscultation bilaterally Auscultation: Negative for crackles, rales, rhonchi or wheezes Cardio regular rate, regular rhythm, S1 normal heart sound, S2 normal heart sound, no murmurs, no rub, no gallops, no clicks and no JVD GI normal to inspection, nondistended, normoactive bowel sounds, soft to palpation, non-tender, non-distended and hepatosplenomegaly Extremity Extremity Narrative: Right lower extremity with postop hip dressing in place-clean dry and intact, no clubbing or cyanosis, mild edema at the right hip site with tenderness but no hematoma Skin Skin Narrative: Patient looks pale, no wounds or lesion identified other than surgical incision Neuro oriented x3, CN's II-XII intact bilaterally and no focal motor deficits Sensorium / Orientation: awake, alert, oriented to person, oriented to place and oriented to time Speech: speech normal Psych affect normal Psych Narrative: Patient appropriately interactive but reports she is fatigued Assessment & Plan Assessment/Plan (1) Periprosthetic intertrochanteric fracture of femur: (2) Acute blood loss anemia: (3) Guaiac positive stools: PLAN: Plan 1.? Acute traumatic right oblique fracture through the proximal right femoral diaphysis in the subtrochanteric region adjacent to the femoral stem of the right hip prosthesis-orthopedic medicine consulted.? Underwent ORIF right proximal femur periprosthetic fracture with revision hip replacement 02/26/[address] Matson.? As needed pain regimen.? PT/OT.? Case management consult for discharge planning.?Plan for [facility] pending insurance approval. Surgical culture is growing gram-positive cocci. Concerning for PTI. On IV vancomycin. ID following. 2.? Acute blood loss anemia on chronic normocytic anemia-blood loss anemia expected outcome related to #1.? Likely component of hemodilution as well. Additional 2 units PRBC ordered for hemoglobin 6.6. Trend CBC. Check stool for occult blood. 3.? Postoperative hypotension-resolved following fluid bolus. Antihypertensive regimen. 4. Nonischemic cardiomyopathy-preoperative echocardiogram with EF 60%, mild aortic stenosis.? On metoprolol, lisinopril. Currently held. 5.? Chronic hyponatremia-appears at baseline, trend BMP.? 6.? Nonobstructive CAD-on aspirin, metoprolol, lisinopril. BP regimen on hold. 7.? Hypertension-BP regimen on hold due to blood pressure trending low.? Hold parameters in place. BP improved. 8.? Hyperlipidemia-continue statin. 9.? Anxiety/depression-on escitalopram. 10.? Hypothyroidism-continue Synthroid. 11.? History of DVT-no longer on anticoagulation.? Initiated on Xarelto per surgery. DVT prophylaxis-SCDs, Xarelto This patient was seen by CEM Rizzo under the supervision of Dr. Coleman. Assessment: Acute traumatic right oblique fracture of the proximal right femoral diaphysis status post right revision total hip Postoperative hypotension-resolved Acute blood loss anemia Guaiac positive stool Nonobstructive CAD Nonischemic cardiomyopathy Chronic hyponatremia Chronic normocytic anemia Hypertension Hyperlipidemia Hypothyroidism Anxiety Depression History of DVT Plan: -Postop day 2 ORIF of the right proximal femoral periprosthetic fracture with revision of hip replacement acetabular and femoral components -Intraoperative cultures are showing Gram stain with gram-positive cocci however identification is pending -ID is following and patient placed on vancomycin and continue doxycycline -Follow cultures--> currently negative at 48 hours -Per discussion with Dr. Matson he doubts infection based on intraoperative appearance however will very likely treat at least with doxycycline for 2 weeks -Guaiac positive stool and will need to discontinue aspirin and Xarelto -Continue SCDs as patient is high risk for DVT as she has had previous -Patient currently receiving 2 units of packed red blood cells for hemoglobin of 6.6 this morning -Repeat hemoglobin after transfusion and then will assess every 6 hours following -Start Protonix drip -Consult gastroenterology-Dr. Tsang notified of consult -Continue to hold antihypertensives at this point although blood pressure has stabilized -Discharge plan is for [place] however the earliest she would be able to be discharged is Wednesday if she is medically ready at that time however she is not currently medically stable for discharge Charges/Coding Visit Charges Inpatient E&M: 96546 Subs Hosp L3
--- NOTE | 2022-02-28 13:51 | CON.PCM_ITS ---
Assessment & Plan Assessment/Plan (1) Acute blood loss anemia: PLAN: Acute blood loss anemia with no obvious orthopedic source. I suspect that she has a slow GI bleed in the setting of chronic anemia. The source is unknown at this time. Her hemoglobin is improved after blood transfusion. Recommend upper endoscopy to evaluate upper GI tract and possibly colonoscopy and capsule endoscopy in the future. She was explained alternatives, risk, benefits including outstanding bleeding, infection, sepsis, perforation, need for emergent . Have an ASA of 3. HPI Consult Data Date of Consult: 02/28/22 HPI Narrative Reason for Consultation: Anemia HPI Narrative: JENNY MARI, is a 81 F with history of anemia, hypothyroidism, hyper tension on 81 mg of aspirin a day. She presented to the hospital on 02/25/2022 after falling and injuring her right hip. She had a right hip replacement about 3 years ago. She was taken to the operating room on 02/26/2022 for open reduction internal fixation and revision. The surgical cultures grew out gram-positive cocci x3. She has been started on antibiotics by infectious disease. I was asked to see her due to a worsening anemia. It seems as if over the last 2-1/2 years her hemoglobin has been going up and down ranging from 9-10-1/2. Over the last couple days her hemoglobin has trended down to 6.6. She has never been on iron therapy. She did not see any bloody stools. [facility], [facility] Medical History Arthritis Atherosclerosis of coronary artery of pala heart without angina pectoris Compression fracture Depression Essential (primary) hypertension Myocarditis Non-ischemic cardiomyopathy Nonrheumatic aortic (valve) stenosis Nonsustained paroxysmal ventricular tachycardia Premature ventricular beats Right leg DVT Solar elastosis Home Medications aspirin 81 mg tablet,delayed release (Adult Aspirin Regimen) 81 mg PO DAILY 07/06/18 [History Last Taken Unknown] levothyroxine 100 mcg capsule 100 mcg PO TUTHSA 07/06/18 [History Last Taken Unknown] levothyroxine 112 mcg tablet 112 mcg PO DAILY 02/17/20 [History Last Taken Unknown] escitalopram oxalate 20 mg tablet 20 mg PO DAILY 07/29/21 [History Last Taken Unknown] lisinopril 20 mg tablet 20 mg PO BID #180 tabs 12/17/21 [Rx Last Taken Unknown] metoprolol succinate 50 mg tablet,extended release 24 hr 50 mg PO DAILY #90 tabs 12/17/21 [Rx Last Taken Unknown] Allergy/AdvReac Type Severity Reaction Status Date / Time imiquimod [From Aldara] Allergy Unknown Verified 02/25/22 23:49 Penicillins [PCN] Allergy Anaphylaxis Verified 02/25/22 23:49 ciprofloxacin [From Cipro] AdvReac Other Verified 02/25/22 23:49 furosemide AdvReac low saodium Verified 02/25/22 23:49 hydrochlorothiazide AdvReac hyponatremi Verified 02/25/22 23:49 a magnesium AdvReac Nausea Verified 02/25/22 23:49 prednisone AdvReac Upset Verified 02/25/22 23:49 Stomach Family History Mother Heart disease Father Heart disease Surgical History History of cataract surgery History of hysterectomy History of left heart catheterization (02/19/11) History of right hip replacement Social History household members: none Smoking Status: Former smoker how long ago did patient quit smokin years ago alcohol intake: current alcohol intake frequency: holidays/special occasions only substance use type: does not use caffeine: Yes Type: coffee Number of servings: 1 ROS Constitutional Constitutional: Reports systems reviewed and no addt'l complaints, except as documented Eyes Eyes: Reports systems reviewed and no addt'l complaints, except as documented Cardiovascular Cardiovascular: Reports systems reviewed and no addt'l complaints, except as documented Respiratory/Chest Respiratory/Chest: Reports systems reviewed and no addt'l complaints, except as documented Genitourinary Genitourinary: Reports systems reviewed and no addt'l complaints, except as documented Musculoskeletal Musculoskeletal: Reports limited range of motion and other Details: Pain with right leg with any range of motion. Unable to bear weight Neurologic Neurologic: Reports systems reviewed and no addt'l complaints, except as documented Psychiatric Psychiatric: Reports systems reviewed and no addt'l complaints, except as documented Endocrine Endocrinology: Reports systems reviewed and no addt'l complaints, except as documented Hematologic/Lymphatic Hematologic/Lymphatic: Reports systems reviewed and no addt'l complaints, except as documented Allergic/Immunologic Allergic/Immunologic: Reports systems reviewed and no addt'l complaints, except as documented Physical Exam Const alert, oriented x3, no apparent distress and average body habitus Constitutional Narrative: Very pleasant older woman HEENT head/scalp atraumatic and moist oral mucous membranes Head and Scalp: normocephalic Resp normal respiratory effort, no retractions, no use of accessory muscles and clear to auscultation bilaterally Auscultation: Negative for crackles, rales, rhonchi or wheezes Cardio regular rate, regular rhythm, S1 normal heart sound, S2 normal heart sound, no murmurs, no rub, no gallops, no clicks and no JVD GI normal to inspection, nondistended, normoactive bowel sounds, non-tender and non-distended Extremity Extremity Narrative: Right lower extremity with postop hip dressing in place-clean dry and intact Neuro oriented x3, CN's II-XII intact bilaterally and no focal motor deficits Sensorium / Orientation: awake, alert, oriented to person, oriented to place and oriented to time Speech: speech normal Psych affect normal Psych Narrative: Very pleasant, jovial, and appropriately interactive today Lab / Micro Data Result Diagrams: 03/01/22 09:45 03/01/22 03:46 Labs: Laboratory Results - last 24 hr 02/26/22 06:52: Crossmatch See Detail 02/28/22 15:45: Random Vancomycin 10.8 02/28/22 15:45: Hgb 9.8 L, Hct 28.2 L 02/28/22 21:45: Hgb 9.3 L, Hct 26.5 L 03/01/22 03:46: WBC 8.3, RBC 3.17 L, Hgb 9.7 L, Hct 28.3 L, MCV 89.3, MCH 30.6, MCHC 34.3, RDW Std Deviation 45.3 H, RDW Coeff of Tonie 13.9, Plt Count 160, MPV 10.3, Immature Gran % (Auto) 1.000 H, Neut % (Auto) 72.4 H, Lymph % (Auto) 14.9 L, [place] % (Auto) 10.5 H, Eos % (Auto) 1.0, Baso % (Auto) 0.2, Absolute Neuts (auto) 6.0, Absolute Lymphs (auto) 1.24, Nucleated RBC % 0 03/01/22 03:46: Sodium 126 L, Potassium 4.3, Chloride 93 L, Carbon Dioxide 25.0, Anion Gap 8, BUN 35 H, Creatinine 1.11 H, Estim Creat Clear Calc 30.37, Est GFR (MDRD) Af Amer 60, Est GFR (MDRD) Non-Af 50 L, BUN/Creatinine Ratio 31.5 H, Glucose 109 H, Calcium 8.2 L 03/01/22 03:46: TSH 1.45 03/01/22 09:05: Ur Random Sodium 45 03/01/22 09:05: Urine Osmolality 538 03/01/22 09:45: Hgb 9.4 L, Hct 27.0 L 03/01/22 09:45: Serum Osmolality 268 L Micro: Microbiology 02/26/22 15:58 Tissue - Hip Gram Stain - Final 02/26/22 15:58 Tissue - Hip Wound Culture - Preliminary No growth-Final to follow 02/26/22 15:58 Tissue - Hip Anaerobic Culture - Preliminary No growth in 48 hours. 02/26/22 16:02 Tissue - Hip Gram Stain - Final 02/26/22 16:02 Tissue - Hip Wound Culture - Preliminary No growth-Final to follow 02/26/22 16:02 Tissue - Hip Anaerobic Culture - Preliminary No growth in 48 hours. 02/26/22 15:56 Tissue - Hip Gram Stain - Final 02/26/22 15:56 Tissue - Hip Wound Culture - Preliminary No growth-Final to follow 02/26/22 15:56 Tissue - Hip Anaerobic Culture - Preliminary No growth in 48 hours. 02/28/22 13:07 Stool Stool Occult Blood (NOLVIA) - Final Occult Blood Positive Charges/Coding Visit Charges Inpatient E&M: 43004 Init Hosp L2
[2022-02-28] MEDS: Morphine 4 MG/ML Syringe IV (15:51)
[2022-02-28] MEDS: 0.9% Saline Lock 10 ML Syringe IV (15:52)
[2022-02-28 16:01] LABS: Hematocrit 28.2 % (37-47); Hemoglobin 9.8 g/dL (12.0-15.0)
[2022-02-28 17:07] LABS: Vancomycin, Random Level 10.8 ug/mL (0.0-15.0)
[2022-02-28] MEDS: Vancomycin 1,000 MG in NS 180mls Q24 200 MG IV (17:47)
--- NOTE | 2022-02-28 17:57 | PCM.RX.CS ---
Consult Pharmacy has been consulted to manage selected antiobiotic: Vancomycin Type of Consult: Follow-up Suspected Infection: Skin/Soft tissue Prior Doses of Antibiotics Received/Current Regimen: received vanc 1000mg on 02/26 and 750mg yesterday 02/27/22 Labs: Sodium 128 mmol/L (136-145) L 02/28/22 06:35 Potassium 3.9 mmol/L (3.5-5.1) 02/28/22 06:35 Chloride 94 mmol/L (98-107) L 02/28/22 06:35 Carbon Dioxide 25.0 mmol/L (21.0-32.0) 02/28/22 06:35 Anion Gap 9 (5-15) 02/28/22 06:35 BUN 38 mg/dL (7-18) H 02/28/22 06:35 Creatinine 1.78 mg/dL (0.55-1.02) H 02/28/22 06:35 Est GFR (MDRD) Af Amer 35 mL/min (>60) L 02/28/22 06:35 Est GFR (MDRD) Non-Af 29 mL/min (>60) L 02/28/22 06:35 BUN/Creatinine Ratio 21.3 RATIO (10-20) H 02/28/22 06:35 Glucose 128 mg/dL (74-106) H 02/28/22 06:35 Random Vancomycin 10.8 ug/mL (0.0-15.0) 02/28/22 15:45 Microbiology: Microbiology 02/26/22 15:58 Tissue - Hip Gram Stain - Final 02/26/22 15:58 Tissue - Hip Wound Culture - Preliminary No growth-Final to follow 02/26/22 15:58 Tissue - Hip Anaerobic Culture - Preliminary No growth in 48 hours. 02/26/22 16:02 Tissue - Hip Gram Stain - Final 02/26/22 16:02 Tissue - Hip Wound Culture - Preliminary No growth-Final to follow 02/26/22 16:02 Tissue - Hip Anaerobic Culture - Preliminary No growth in 48 hours. 02/26/22 15:56 Tissue - Hip Gram Stain - Final 02/26/22 15:56 Tissue - Hip Wound Culture - Preliminary No growth-Final to follow 02/26/22 15:56 Tissue - Hip Anaerobic Culture - Preliminary No growth in 48 hours. 02/28/22 13:07 Stool Stool Occult Blood (NOLVIA) - Final Occult Blood Positive Weight used for dosin.1 kg Estimated Creatinine Clearance: 19ml/min Goal Trough: 15-20 mcg/mL Pharmacy Plan for Drug Dosing: The patient's previously scheduled dose was discontinued today due to an acute increase in the patient's SCr to 1.78 this morning. A random vanc level was obtained today (drawn at 15:45 which was approx 25 1/2 hours after the 750mg dose) and that level was 10.8. Per [facility] protocol for dosing in patients with CrCl < 20ml/min, will order a vanc dose of 1000mg x1 to be given today based on the patient's weight. Another random level will be ordered to be drawn 24 hours after that 1000mg is given to determine if a dose should be given tomorrow. Pharmacy Service will continue to monitor and adjust dosing as required. Follow-Up Labs: Trough Vancomycin - random Labs to be done on [date and time ordered]: 03/01/22 18:00
[2022-02-28 22:05] LABS: Hematocrit 26.5 % (37-47); Hemoglobin 9.3 g/dL (12.0-15.0)
[2022-03-01] VITALS (9 sets, daily range): BP systolic 145–169; BP diastolic 70–82; PULSE 83–91; RESP 16–18; TEMP 36.5–37.2; O2SAT 96–99
[2022-03-01] MEDS: Levothyroxine 112 MCG Tablet PO (03:25)
[2022-03-01] MEDS: Acetaminophen 500 MG Tablet 1000 MG PO ×3 (03:25→21:06)
[2022-03-01 03:53] LABS: Absolute Lymphocyte Count 1.24 X10^3/uL (0.83-4.51); Basophil# 0.02 X10^3/uL; Basophil% 0.2 % (0-1); Eosinophil# 0.08 X10^3/uL; Hematocrit 28.3 % (37-47); Hemoglobin 9.7 g/dL (12.0-15.0); Lymphocyte # 1.24 X10^3/ul (0.83-4.51); Lymphocyte % 14.9 % (19-41); Mean Corp Hgb Conc 34.3 g/dL (32-36); Mean Corpuscular Hgb 30.6 pg (27.0-32.0); Mean Corpuscular Volume 89.3 fL (81-99); Mean Platelet Vol. 10.3 fl (6.2-12.0); Monocyte# 0.87 X10^3/uL; Monocyte% 10.5 % (0-10); NRBC Flagged by Analyzer 0 % (0-5); Neutrophil # 6.02 X10^3/uL (2.7-7.7); Neutrophil % 72.4 % (47-70); Platelet Count 160 K/mm3 (150-450); RBC Distribution Width CV 13.9 % (11.6-14.6); RBC Distribution Width SD 45.3 fl (35.1-43.9); Red Blood Count 3.17 M/mm3 (4.2-5.4); White Blood Count 8.3 K/mm3 (4.4-11.0)
[2022-03-01 04:21] LABS: Anion Gap 8 (5-15); BUN 35 mg/dL (7-18); BUN/Creat Ratio 31.5 RATIO (10-20); Calcium,Total 8.2 mg/dL (8.5-10.1); Chloride 93 mmol/L (98-107); Creatinine, Serum 1.11 mg/dL (0.55-1.02); EST Glomerular Filtration Rate 50 mL/min (>60); Est Glom Filt Rate - Afr Amer 60 mL/min (>60); Estimated Creatinine Clearance 30.37 ml/min; Glucose 109 mg/dL (74-106); Potassium 4.3 mmol/L (3.5-5.1); Sodium Level 126 mmol/L (136-145)
[2022-03-01 08:13] LABS: Thyroid Stim Hormone (TSH) 1.45 uIU/mL (0.358-3.74)
--- NOTE | 2022-03-01 08:53 | PN.ORTHO_ITS ---
Subjective Subjective Patient is responded well to blood transfusion yesterday. Vital signs are stable. In fact patient is hypertensive over the last 24 hours. Her hemoglobin has remained stable at about 9.5-mayank. They did attempt to get her up to the bedside commode last evening and she had multiple attempted a catheter. She has not been out of bed significant amount of time. She admits this as well as the nursing staff. There is not appear to be any restrictions with her mobility at this time related to her occult blood in the stool. She does have occult blood which the primary service continues to work-up. No chest pain or shortness of breath. No lightheadedness this morning. Objective Data Objective Data Vital Signs: Vital Signs Temp Pulse Resp BP Pulse Ox O2 Del Method O2 Flow Rate 98.0 F 88 16 169/71 H 98 Room Air 2 03/01/22 03:30 03/01/22 03:30 03/01/22 03:30 03/01/22 03:30 03/01/22 03:30 03/01/22 03:32 02/26/22 09:55 Oxygen Flow Rate (L/min) 2 Oxygen Delivery Method Room Air Weight: 152 lb 12.485 oz Body Mass Index (BMI) 25.7 Intake & Output: Intake and Output for Last 24 Hours 02/27/22 02/28/22 03/01/22 23:59 23:59 23:59 Intake Total 2351.25 / 2871.25 3100 / 3100 214.5 / 214.5 Output Total 50 / 50 1075 / 1075 350 / 350 Balance 2301.25 / 2821.25 2024 / 2024 -135.5 / -135.5 Lab / Micro Data Attestation: I reviewed the patient's lab results. Result Diagrams: 03/01/22 03:46 03/01/22 03:46 Labs: Laboratory Results - last 24 hr 02/26/22 06:52: Crossmatch See Detail 02/28/22 15:45: Random Vancomycin 10.8 02/28/22 15:45: Hgb 9.8 L, Hct 28.2 L 02/28/22 21:45: Hgb 9.3 L, Hct 26.5 L 03/01/22 03:46: WBC 8.3, RBC 3.17 L, Hgb 9.7 L, Hct 28.3 L, MCV 89.3, MCH 30.6, MCHC 34.3, RDW Std Deviation 45.3 H, RDW Coeff of Tonie 13.9, Plt Count 160, MPV 10.3, Immature Gran % (Auto) 1.000 H, Neut % (Auto) 72.4 H, Lymph % (Auto) 14.9 L, Hendry % (Auto) 10.5 H, Eos % (Auto) 1.0, Baso % (Auto) 0.2, Absolute Neuts (auto) 6.0, Absolute Lymphs (auto) 1.24, Nucleated RBC % 0 03/01/22 03:46: Sodium 126 L, Potassium 4.3, Chloride 93 L, Carbon Dioxide 25.0, Anion Gap 8, BUN 35 H, Creatinine 1.11 H, Estim Creat Clear Calc 30.37, Est GFR (MDRD) Af Amer 60, Est GFR (MDRD) Non-Af 50 L, BUN/Creatinine Ratio 31.5 H, Glucose 109 H, Calcium 8.2 L 03/01/22 03:46: TSH 1.45 Micro: Microbiology 02/26/22 15:58 Tissue - Hip Gram Stain - Final 02/26/22 15:58 Tissue - Hip Wound Culture - Preliminary No growth-Final to follow 02/26/22 15:58 Tissue - Hip Anaerobic Culture - Preliminary No growth in 48 hours. 02/26/22 16:02 Tissue - Hip Gram Stain - Final 02/26/22 16:02 Tissue - Hip Wound Culture - Preliminary No growth-Final to follow 02/26/22 16:02 Tissue - Hip Anaerobic Culture - Preliminary No growth in 48 hours. 02/26/22 15:56 Tissue - Hip Gram Stain - Final 02/26/22 15:56 Tissue - Hip Wound Culture - Preliminary No growth-Final to follow 02/26/22 15:56 Tissue - Hip Anaerobic Culture - Preliminary No growth in 48 hours. 02/28/22 13:07 Stool Stool Occult Blood (NOLVIA) - Final Occult Blood Positive Physical Exam Const alert and oriented x3 General Appearance: cooperative Extremity Extremity Narrative: Right lower extremity: Dressing is intact, however she does have more spotting than yesterday. Sensations intact to light touch saphenous, sural, superficial peroneal, deep peroneal, and tibial distributions Motors intact EHL, DF, PF calves are soft and supple Thigh has swelling but is compressible and supple Assessment & Plan Assessment/Plan (1) Acute blood loss anemia: PLAN: Likely related to injury and intraoperative blood loss. However, patient does have guaiac positive stool. (2) Periprosthetic intertrochanteric fracture of femur: PLAN: Postop day 3 right hip revision with ORIF periprosthetic fracture 1.? DVT prophylaxis: Xarelto for 2 weeks followed by aspirin for 2 weeks due to previous DVT. Currently Xarelto being held as we work-up GI bleed concerns. Because of this I have discussed with the nurse the importance of getting the patient out of bed. I also discussed the patient that we need to get her moving. We will continue to use SCDs and compressive stockings. However, we need to continue to manage risks and benefits of anticoagulation at this time due to patient's significant anemia yesterday until the guaiac in the stool was assessed medicine is holding DVT prophylaxis 2.? Pain control: Per primary service, pain currently controlled 3.? Anemia: Patient had preoperative anemia chronically she did require blood transfusion related to intraoperative blood loss.? Hemoglobin is 9+ this morning and has been stable in response to yesterday's transfusion.? Medicine has confi rmed GI occult blood.? Additionally she had hypotension yesterday and did receive a bolus of fluids.? Her thigh is compressible and supple without signs of excessive blood pooling.? Likely related to postsurgical changes as well as delusional in nature.? 4.? Cultures: Gram stains came back positive for gram-positive cocci x3.? Cultures have been negative so far.? Infectious disease has been consulted and patient is started on IV antibiotics.? We will monitor cultures.? Plan is to hold cultures for 14 days to evaluate potential need for further antibiotics or decrease scope of antibiotics.? This was discussed with the patient and her family which was at bedside.? They demonstrated understanding.? Appreciate infectious disease consultation. 5.? Therapy: Posterior hip precautions.? 50% weightbearing on operative side.? Must use walker or cane for least 6 weeks postop, no active abduction for 6 weeks postop. Patient needs to be out of bed to chair at least twice a day. Nursing staff will help patient get to chair after physical therapy. 6.? Postop hypotension: Appears to be resolved at this time Disposition: Currently patient appears orthopedically stable. I do recommend appropriate oral anticoagulation upon discharge if appropriate related to medical comorbidities including GI bleed. If patient needs something that can be quickly reversed recommend subcu Lovenox.? Plan is for skilled facility upon discharge where she can get therapy and IV antibiotics.? Tyrel can be removed on postoperative day 12.? Patient can shower as long as she has occlusive dressing.? Sterile dressings are removed on postop day 5 can be left open to air if incision is clean dry and intact.? Follow-up in orthopedic office in 2 weeks for wound check and x-ray check. Please call with any further questions or concerns [phone] (3) Guaiac positive stools: PLAN: GI has been consulted. Patient is currently n.p.o. do not see a consultation from GI however patient reports she is to go down for a scope.
[2022-03-01] MEDS: Doxycycline 100 MG CAPSULE PO ×2 (08:56→21:06)
[2022-03-01] MEDS: Escitalopram Oxalate 20 MG Tablet PO (08:56)
[2022-03-01 09:49] LABS: Hemoglobin 9.4 g/dL (12.0-15.0)
[2022-03-01 09:58] LABS: Urine Sodium 45 mmol/L (Not Establ.)
[2022-03-01 10:09] LABS: Osmolality, Urine 538 mOsm/KG
[2022-03-01 10:09] LABS: Osmolality, Serum 268 mOsm/KG (280-301)
--- NOTE | 2022-03-01 10:23 | PCM.PN.HOSP ---
Documented by User: Yasmeen Ann NP, PROFESSIONAL SYSTEM ADMINISTRATOR-C 03/01/22 10:33 Subjective Subjective Patient seen and examined. Denies further nausea, vomiting, reflux symptoms. Denies other symptoms or complaints. Pain controlled. Objective Data Objective Data Vital Signs: Vital Signs Temp Pulse Resp BP Pulse Ox O2 Del Method O2 Flow Rate 98.0 F 88 16 169/71 H 96 Room Air 2 03/01/22 03:30 03/01/22 03:30 03/01/22 03:30 03/01/22 03:30 03/01/22 07:59 03/01/22 07:59 02/26/22 09:55 Oxygen Flow Rate (L/min) 2 Oxygen Delivery Method Room Air Weight: 152 lb 12.485 oz Body Mass Index (BMI) 25.7 Intake & Output: Intake and Output for Last 24 Hours 02/27/22 02/28/22 03/01/22 23:59 23:59 23:59 Intake Total 2351.25 / 2871.25 3100 / 3100 214.5 / 214.5 Output Total 50 / 50 1075 / 1075 350 / 350 Balance 2301.25 / 2821.25 2024 / 2024 -135.5 / -135.5 Lab / Micro Data Result Diagrams: 03/01/22 09:45 03/01/22 03:46 Labs: Laboratory Results - last 24 hr 02/26/22 06:52: Crossmatch See Detail 02/28/22 15:45: Random Vancomycin 10.8 02/28/22 15:45: Hgb 9.8 L, Hct 28.2 L 02/28/22 21:45: Hgb 9.3 L, Hct 26.5 L 03/01/22 03:46: WBC 8.3, RBC 3.17 L, Hgb 9.7 L, Hct 28.3 L, MCV 89.3, MCH 30.6, MCHC 34.3, RDW Std Deviation 45.3 H, RDW Coeff of Tonie 13.9, Plt Count 160, MPV 10.3, Immature Gran % (Auto) 1.000 H, Neut % (Auto) 72.4 H, Lymph % (Auto) 14.9 L, Dewey % (Auto) 10.5 H, Eos % (Auto) 1.0, Baso % (Auto) 0.2, Absolute Neuts (auto) 6.0, Absolute Lymphs (auto) 1.24, Nucleated RBC % 0 03/01/22 03:46: Sodium 126 L, Potassium 4.3, Chloride 93 L, Carbon Dioxide 25.0, Anion Gap 8, BUN 35 H, Creatinine 1.11 H, Estim Creat Clear Calc 30.37, Est GFR (MDRD) Af Amer 60, Est GFR (MDRD) Non-Af 50 L, BUN/Creatinine Ratio 31.5 H, Glucose 109 H, Calcium 8.2 L 03/01/22 03:46: TSH 1.45 03/01/22 09:05: Ur Random Sodium 45 03/01/22 09:05: Urine Osmolality 538 03/01/22 09:45: Hgb 9.4 L, Hct 27.0 L 03/01/22 09:45: Serum Osmolality 268 L Micro: Microbiology 02/26/22 15:58 Tissue - Hip Gram Stain - Final 02/26/22 15:58 Tissue - Hip Wound Culture - Preliminary No growth-Final to follow 02/26/22 15:58 Tissue - Hip Anaerobic Culture - Preliminary No growth in 48 hours. 02/26/22 16:02 Tissue - Hip Gram Stain - Final 02/26/22 16:02 Tissue - Hip Wound Culture - Preliminary No growth-Final to follow 02/26/22 16:02 Tissue - Hip Anaerobic Culture - Preliminary No growth in 48 hours. 02/26/22 15:56 Tissue - Hip Gram Stain - Final 02/26/22 15:56 Tissue - Hip Wound Culture - Preliminary No growth-Final to follow 02/26/22 15:56 Tissue - Hip Anaerobic Culture - Preliminary No growth in 48 hours. 02/28/22 13:07 Stool Stool Occult Blood (NOLVIA) - Final Occult Blood Positive Physical Exam Const alert, oriented x3 and no apparent distress Orientation / Consciousness: awake, oriented to person, oriented to place and oriented to time HEENT normocephalic and moist oral mucous membranes Eyes PERRL, EOMs intact bilaterally and conjunctivae normal Neck no lymphadenopathy Resp normal respiratory effort and clear to auscultation bilaterally Cardio regular rate, regular rhythm and no murmurs Peripheral Pulses: pulses 2+ throughout GI normal to inspection, nondistended, normoactive bowel sounds, non-tender and non-distended Extremity normal to inspection Skin no rashes or lesions noted Skin Narrative: Right hip dressing intact. Right thigh edematous, no ecchymosis or hematoma noted. Lesions: no lesions Rashes: no rashes Trauma: no lacerations or abrasions Neuro CN's II-XII intact bilaterally, no focal motor deficits, no sensory deficits noted and deep tendon reflexes 2+ bilaterally Psych mental status grossly normal and affect normal Assessment & Plan Assessment/Plan (1) Acute blood loss anemia: (2) Periprosthetic intertrochanteric fracture of femur: (3) Guaiac positive stools: (4) Hyponatremia: (5) STEVEN (acute kidney injury): PLAN: Plan 1.? Acute traumatic right oblique fracture through the proximal right femoral diaphysis in the subtrochanteric region adjacent to the femoral stem of the right hip prosthesis-orthopedic medicine consulted.? Underwent ORIF right proximal femur periprosthetic fracture with revision hip replacement 02/26/[address] Matson.? As needed pain regimen.? PT/OT.? Case management consult for discharge planning.?Plan for [facility] pending insurance approval.? Surgical cultures initially with suspected gram-positive cocci.? Cultures now preliminary with no growth, final pending. Continue IV vancomycin pending final cultures.? ID following. 2.? Acute blood loss anemia secondary to GI bleed on chronic normocytic anemia-stool positive for occult blood. Status post 4 units PRBC. On Protonix drip. GI consulted. Trend CBC. 3.? Postoperative hypotension-resolved following fluid bolus. 4. Nonischemic cardiomyopathy-preoperative echocardiogram with EF 60%, mild aortic stenosis.? On metoprolol, lisinopril. 5.? Chronic hyponatremia-appears at baseline, trend BMP.? 6.? Nonobstructive CAD-on aspirin, metoprolol, lisinopril.? 7.? Hypertension-Resume BP regimen with hold parameters. 8.? Hyperlipidemia-continue statin. 9.? Anxiety/depression-on escitalopram. 10.? Hypothyroidism-continue Synthroid. 11.? History of DVT-no longer on anticoagulation. Initially placed on Xarelto however now held due to GI bleed. We will need to reevaluate DVT prophylaxis following GI work-up. DVT prophylaxis-SCDs, Xarelto on hold This patient was seen by Yasmeen Seth, PROFESSIONAL SYSTEM ADMINISTRATOR-C under the supervision of Dr. Coelman. Documented by User: Dr. Elsa Coleman DO 03/01/22 11:36 Subjective Subjective Patient seen and examined. Denies further nausea, vomiting, reflux symptoms. Denies other symptoms or complaints. Pain controlled. Patient seen in conjunction with Yasmeen Ann NP. The following represents my independent history and physical examination. Please see below for addendum above. Patient reports the food is terrible and that is why her oral intake has not been good. Overall she is feeling well. Had some urinary retention yesterday and unfortunately a Soto catheter had to be placed. She indicates this was somewhat difficult. Hemoglobin has stabilized but guaiac was positive and awaiting GI input for probable EGD later today or tomorrow. Objective Data Lab / Micro Data Result Diagrams: 03/01/22 09:45 03/01/22 03:46 Physical Exam Const alert, oriented x3, no apparent distress and average body habitus Constitutional Narrative: Elderly white female sitting up in bed, appears comfortable at this time, nontoxic, very pleasant HEENT head/scalp atraumatic and moist oral mucous membranes Head and Scalp: normocephalic Resp normal respiratory effort, no retractions, no use of accessory muscles and clear to auscultation bilaterally Auscultation: Negative for crackles, rales, rhonchi or wheezes Cardio regular rate, regular rhythm, S1 normal heart sound, S2 normal heart sound, no murmurs, no rub, no gallops, no clicks and no JVD GI normal to inspection, nondistended, normoactive bowel sounds, non-tender and non-distended Extremity Extremity Narrative: Right lower extremity with postop hip dressing in place-clean dry and intact, no clubbing or cyanosis, mild edema at the right hip site with tenderness but no hematoma, no cyanosis or clubbing Neuro oriented x3, CN's II-XII intact bilaterally and no focal motor deficits Sensorium / Orientation: awake, alert, oriented to person, oriented to place and oriented to time Speech: speech normal Psych affect normal Psych Narrative: Very pleasant, jovial, and appropriately interactive today Assessment & Plan Assessment/Plan (1) Acute blood loss anemia: (2) Periprosthetic intertrochanteric fracture of femur: (3) Guaiac positive stools: (4) Hyponatremia: (5) STEVEN (acute kidney injury): PLAN: Plan Assessment: Acute traumatic right oblique fracture of the proximal right femoral diaphysis status post right revision total hip Postoperative hypotension-resolved STEVEN-resolving Acute on chronic hyponatremia Acute blood loss anemia Guaiac positive stool Nonobstructive CAD Nonischemic cardiomyopathy Chronic hyponatremia Chronic normocytic anemia Hypertension Hyperlipidemia Hypothyroidism Anxiety Depression History of DVT Plan: -Postop day 2 ORIF of the right proximal femoral periprosthetic fracture with revision of hip replacement acetabular and femoral components -Intraoperative cultures are showing Gram stain with gram-positive cocci however identification is pending -ID is following and patient placed on vancomycin and continue doxycycline -Follow cultures--> currently negative at 48 hours -Per discussion with Dr. Matson he doubts infection based on intraoperative appearance however will very likely treat at least with doxycycline for 2 weeks -Guaiac positive stool -Xarelto and aspirin discontinued for now--> would like to reinitiate Xarelto soon as possible given history of DVT -Discussed case with GI and plan is for EGD later today or tomorrow depending on anesthesia -Continue SCDs as patient is high risk for DVT as she has had previous -2 units packed red blood cells were given for hemoglobin of 6.6 on a.m. 02/28/2022 -Hemoglobin is stabilized -Continue Protonix drip -Will work-up acute on chronic per natremia -Baseline runs from 1 30-1 34 however now down to 126 -Is on Lexapro and this could cause SIADH but no other significant medication interactions noted -Check urine sodium/osmolality/serum osmolality -STEVEN is resolving suspect this was related to hypotension postoperatively related to bleeding in the GI tract -Restart home antihypertensives -Discharge plan is for [place] however the earliest she would be able to be discharged is Wednesday if she is medically ready at that time however she is not currently medically stable for discharge Charges/Coding Visit Charges Inpatient E&M: 09777 Subs Hosp L2
[2022-03-01] MEDS: oxyCODONE 5 MG Tablet PO (12:03)
--- NOTE | 2022-03-01 14:27 | OP.EGD_ITS ---
Patient Name: Domonique Rivas Procedure Date: 03/01/2022 1:47 PM Date of : 1940 Age: 81 Procedure: Upper GI endoscopy Indications: Acute post hemorrhagic anemia Providers: Rashad Tsang DO Medicines: Monitored Anesthesia Care Patient Profile: This is an 81 year old female. Refer to note in patient chart for documentation of history and physical. Patient has symptoms of acute nausea and acute vomiting. Complications: No immediate complications. Procedure: Pre-Anesthesia Assessment: - Prior to the procedure, a History and Physical was performed, and patient medications and allergies were reviewed. The patient is competent. The risks and benefits of the procedure and the sedation options and risks were discussed with the patient. All questions were answered and informed consent was obtained. Patient identification and proposed procedure were verified by the physician in the pre-procedure area. Mental Status Examination: alert and oriented. Airway Examination: normal oropharyngeal airway and neck mobility. Respiratory Examination: clear to auscultation. CV Examination: normal. Prophylactic Antibiotics: The patient does not require prophylactic antibiotics. Prior Anticoagulants: The patient has taken no previous anticoagulant or antiplatelet agents. After reviewing the risks and benefits, the patient was deemed in satisfactory condition to undergo the procedure. The anesthesia plan was to use moderate sedation / analgesia (conscious sedation). Immediately prior to administration of medications, the patient was re-assessed for adequacy to receive sedatives. The heart rate, respiratory rate, oxygen saturations, blood pressure, adequacy of pulmonary ventilation, and response to care were monitored throughout the procedure. The physical status of the patient was re-assessed after the procedure. After obtaining informed consent, the endoscope was passed under direct vision. Throughout the procedure, the patient's blood pressure, pulse, and oxygen saturations were monitored continuously. The gastroscope was introduced through the mouth, and advanced to the second part of duodenum. The upper GI endoscopy was accomplished without difficulty. The patient tolerated the procedure well. Scope In: 2:15:10 PM Scope Out: 2:17:25 PM Total Procedure Duration Time 0 hours 2 minutes 15 seconds Findings: LA Grade B (one or more mucosal breaks greater than 5 mm, not extending between the tops of two mucosal folds) esophagitis with no bleeding was found 36 to 39 cm from the incisors. A medium amount of food (residue) was found in the gastric body. Food (residue) was found in the first portion of the duodenum. Impression: - LA Grade B reflux esophagitis. - A medium amount of food (residue) in the stomach. - Retained food in the duodenum. - No specimens collected. Recommendation: - Discharge patient to home. - Resume previous diet today. - Continue present medications. Procedure Code(s): --- Professional --- 11492, Esophagogastroduodenoscopy, flexible, transoral; diagnostic, including collection of specimen(s) by brushing or washing, when performed (separate procedure) CPT copyright 2017 [employer]. All rights reserved. The codes documented in this report are preliminary and upon airborne operations review may be revised to meet current compliance requirements. Rashad Tsang DO 03/01/2022 2:27:00 PM This report has been signed electronically. Number of Addenda: 1 Note Initiated On: 03/01/2022 1:47 PM Addendum Number: 1 Addendum Date: 06/03/2022 6:32:34 AM MAC was used as sedation for this procedure. Rashad Tsang DO 06/03/2022 6:32:37 AM This report has been signed electronically.
--- NOTE | 2022-03-01 14:27 | OP.CCLET_ITS ---
06/03/2022 Alek Chahal [address] [place] [address] [place] [address] Re : Upper GI endoscopy procedure for Domonique Rob Dear Dr. Chahal This procedure was performed on Tuesday, March 01, 2022. My impressions and recommendations are as follows: Impressions : - LA Grade B reflux esophagitis. - A medium amount of food (residue) in the stomach. - Retained food in the duodenum. - No specimens collected. Recommendations : - Discharge patient to home. - Resume previous diet today. - Continue present medications. My findings are described in the full procedure note, which is enclosed. If I can be of further assistance, please feel free to contact me at . Sincerely, Rashad Tsang, 03/01/2022 2:27:00 PM This report has been signed electronically.
[2022-03-01] MEDS: Ensure Surgery 237 ML LIQUID PO (16:13)
[2022-03-01 18:54] LABS: Vancomycin, Random Level 9.3 ug/mL (0.0-15.0)
--- NOTE | 2022-03-01 20:04 | PCM.RX.CS ---
Consult Pharmacy has been consulted to manage selected antiobiotic: Vancomycin Type of Consult: Follow-up Labs: Sodium 126 mmol/L (136-145) L 03/01/22 03:46 Potassium 4.3 mmol/L (3.5-5.1) 03/01/22 03:46 Chloride 93 mmol/L (98-107) L 03/01/22 03:46 Carbon Dioxide 25.0 mmol/L (21.0-32.0) 03/01/22 03:46 Anion Gap 8 (5-15) 03/01/22 03:46 BUN 35 mg/dL (7-18) H 03/01/22 03:46 Creatinine 1.11 mg/dL (0.55-1.02) H 03/01/22 03:46 Est GFR (MDRD) Af Amer 60 mL/min (>60) 03/01/22 03:46 Est GFR (MDRD) Non-Af 50 mL/min (>60) L 03/01/22 03:46 BUN/Creatinine Ratio 31.5 RATIO (10-20) H 03/01/22 03:46 Glucose 109 mg/dL (74-106) H 03/01/22 03:46 Random Vancomycin 9.3 ug/mL (0.0-15.0) 03/01/22 18:03 Microbiology: Microbiology 02/26/22 15:58 Tissue - Hip Gram Stain - Final 02/26/22 15:58 Tissue - Hip Wound Culture - Preliminary No growth-Final to follow 02/26/22 15:58 Tissue - Hip Anaerobic Culture - Preliminary No growth in 48 hours. 02/26/22 16:02 Tissue - Hip Gram Stain - Final 02/26/22 16:02 Tissue - Hip Wound Culture - Preliminary No growth-Final to follow 02/26/22 16:02 Tissue - Hip Anaerobic Culture - Preliminary No growth in 48 hours. 02/26/22 15:56 Tissue - Hip Gram Stain - Final 02/26/22 15:56 Tissue - Hip Wound Culture - Preliminary No growth-Final to follow 02/26/22 15:56 Tissue - Hip Anaerobic Culture - Preliminary No growth in 48 hours. 02/28/22 13:07 Stool Stool Occult Blood (NOLVIA) - Final Occult Blood Positive Goal Trough: 15-20 mcg/mL Pharmacy Plan for Drug Dosing: Pharmacy Service will continue to monitor and adjust dosing as required. VANCO ON HOLD PER INCREASE IN SCr. RANDOM TROUGH IS 9.3 AT 24HRS AFTER 1GM DOSE GIVEN. SCr DECREASED FROM 1.78 TO 1.11. START 1GM Q24H AND FOLLOW UP TROUGH ON 03/03 Follow-Up Labs: Trough Vancomycin Labs to be done on [date and time ordered]: 03/03 @ 4280
[2022-03-01] MEDS: Vancomycin 1,000 MG in NS 180mls Q24 200 MG IV (21:06)
[2022-03-01] MEDS: 0.9% Saline Lock 10 ML Syringe IV (21:07)
[2022-03-02] VITALS (8 sets, daily range): BP systolic 102–177; BP diastolic 47–76; PULSE 86–92; RESP 16–20; TEMP 36.6–37.2; O2SAT 97–99
[2022-03-02] MEDS: hydrALAZINE 20 MG/ML Vial 10 MG IV ×2 (03:50→10:23)
[2022-03-02] MEDS: 0.9% Saline Lock 10 ML Syringe IV ×3 (03:50→20:47)
[2022-03-02] MEDS: Levothyroxine 112 MCG Tablet PO (05:13)
[2022-03-02] MEDS: Acetaminophen 500 MG Tablet 1000 MG PO ×3 (05:14→21:12)
[2022-03-02 06:41] LABS: Absolute Lymphocyte Count 0.63 X10^3/uL (0.83-4.51); Absolute Neutrophil Count 5.5 X10^3/uL (2.0-7.7); Basophil# 0.02 X10^3/uL; Basophil% 0.3 % (0-1); Eosinophil# 0.25 X10^3/uL; Eosinophils% 3.5 % (0-5); Hemoglobin 9.5 g/dL (12.0-15.0); Lymphocyte # 0.63 X10^3/ul (0.83-4.51); Lymphocyte % 8.7 % (19-41); Mean Corp Hgb Conc 35.2 g/dL (32-36); Mean Corpuscular Volume 88.2 fL (81-99); Mean Platelet Vol. 10.4 fl (6.2-12.0); Monocyte# 0.69 X10^3/uL; Monocyte% 9.6 % (0-10); NRBC Flagged by Analyzer 0 % (0-5); Neutrophil # 5.54 X10^3/uL (2.7-7.7); Neutrophil % 76.8 % (47-70); Platelet Count 183 K/mm3 (150-450); RBC Distribution Width SD 45.2 fl (35.1-43.9); Red Blood Count 3.06 M/mm3 (4.2-5.4); White Blood Count 7.2 K/mm3 (4.4-11.0)
[2022-03-02 07:13] LABS: Anion Gap 6 (5-15); BUN 20 mg/dL (7-18); BUN/Creat Ratio 23.3 RATIO (10-20); Calcium,Total 8.2 mg/dL (8.5-10.1); Chloride 98 mmol/L (98-107); Creatinine, Serum 0.86 mg/dL (0.55-1.02); EST Glomerular Filtration Rate 67 mL/min (>60); Est Glom Filt Rate - Afr Amer 81 mL/min (>60); Glucose 103 mg/dL (74-106); Potassium 3.7 mmol/L (3.5-5.1); Sodium Level 129 mmol/L (136-145)
[2022-03-02] MEDS: Escitalopram Oxalate 20 MG Tablet PO (08:45)
[2022-03-02] MEDS: Doxycycline 100 MG CAPSULE PO ×2 (08:45→21:14)
[2022-03-02] MEDS: Lisinopril 10 MG Tablet PO (08:47)
--- NOTE | 2022-03-02 10:40 | PN.HOSP_ITS ---
Documented by User: Yasmeen Ann NP, FLEET MAINTENANCE FOREMAN-C 03/02/22 11:03 Subjective Subjective Patient seen and examined. Daughter, Becky at bedside. Patient reports episode of nausea with emesis this morning. Denies further acid reflux symptoms. States she thinks she would feel better if she ate something. Denies other symptoms or complaints. Objective Data Objective Data Vital Signs: Vital Signs Temp Pulse Resp BP Pulse Ox O2 Del Method O2 Flow Rate 98.4 F 92 18 161/71 H 98 Room Air 2 03/02/22 10:20 03/02/22 10:23 03/02/22 10:20 03/02/22 10:23 03/02/22 10:20 03/02/22 10:20 02/26/22 09:55 Oxygen Flow Rate (L/min) 2 Oxygen Delivery Method Room Air Weight: 150 lb 5.684 oz Body Mass Index (BMI) 25.7 Intake & Output: Intake and Output for Last 24 Hours 02/28/22 03/01/22 03/02/22 23:59 23:59 23:59 Intake Total 3100 / 3100 1434.5 / 1434.5 420 / 420 Output Total 1075 / 1075 2175 / 2175 925 / 925 Balance 2024 / 2024 -740.5 / -740.5 -505 / -505 Lab / Micro Data Result Diagrams: 03/02/22 06:09 03/02/22 06:09 Labs: Laboratory Results - last 24 hr 03/01/22 18:03: Random Vancomycin 9.3 03/02/22 06:09: WBC 7.2, RBC 3.06 L, Hgb 9.5 L, Hct 27.0 L, MCV 88.2, MCH 31.0, MCHC 35.2, RDW Std Deviation 45.2 H, RDW Coeff of Tonie 14.0, Plt Count 183, MPV 10.4, Immature Gran % (Auto) 1.100 H, Neut % (Auto) 76.8 H, Lymph % (Auto) 8.7 L , [place] % (Auto) 9.6, Eos % (Auto) 3.5, Baso % (Auto) 0.3, Absolute Neuts (auto) 5.5, Absolute Lymphs (auto) 0.63 L, Nucleated RBC % 0 03/02/22 06:09: Sodium 129 L, Potassium 3.7, Chloride 98, Carbon Dioxide 25.0, Anion Gap 6, BUN 20 H, Creatinine 0.86, Estim Creat Clear Calc 39.20, Est GFR (MDRD) Af Amer 81, Est GFR (MDRD) Non-Af 67, BUN/Creatinine Ratio 23.3 H, Glucose 103, Calcium 8.2 L Micro: Microbiology 02/26/22 15:58 Tissue - Hip Gram Stain - Final 02/26/22 15:58 Tissue - Hip Wound Culture - Preliminary No growth-Final to follow 02/26/22 15:58 Tissue - Hip Anaerobic Culture - Preliminary No growth in 48 hours. 02/26/22 16:02 Tissue - Hip Gram Stain - Final 02/26/22 16:02 Tissue - Hip Wound Culture - Preliminary No growth-Final to follow 02/26/22 16:02 Tissue - Hip Anaerobic Culture - Preliminary No growth in 48 hours. 02/26/22 15:56 Tissue - Hip Gram Stain - Final 02/26/22 15:56 Tissue - Hip Wound Culture - Preliminary No growth-Final to follow 02/26/22 15:56 Tissue - Hip Anaerobic Culture - Preliminary No growth in 48 hours. 02/28/22 13:07 Stool Stool Occult Blood (NOLVIA) - Final Occult Blood Positive Physical Exam Const alert, oriented x3 and no apparent distress Orientation / Consciousness: awake, oriented to person, oriented to place and oriented to time HEENT normocephalic and moist oral mucous membranes Eyes PERRL, EOMs intact bilaterally and conjunctivae normal Neck no lymphadenopathy Resp normal respiratory effort and clear to auscultation bilaterally Cardio regular rate, regular rhythm and no murmurs Peripheral Pulses: pulses 2+ throughout GI normal to inspection, nondistended, normoactive bowel sounds, non-tender and non-distended Extremity normal to inspection Skin no rashes or lesions noted Skin Narrative: Right hip dressing clean, dry and intact. Mild generalized swelling, no hematoma or significant ecchymosis. Lesions: no lesions Rashes: no rashes Trauma: no lacerations or abrasions Neuro CN's II-XII intact bilaterally, no focal motor deficits, no sensory deficits noted and deep tendon reflexes 2+ bilaterally Psych mental status grossly normal and affect normal Assessment & Plan Assessment/Plan (1) Acute blood loss anemia: (2) Periprosthetic intertrochanteric fracture of femur: PLAN: Plan 1.? Acute traumatic right oblique fracture through the proximal right femoral diaphysis in the subtrochanteric region adjacent to the femoral stem of the right hip prosthesis-orthopedic medicine consulted.? Underwent ORIF right proximal femur periprosthetic fracture with revision hip replacement 02/26/[address] Matson.? As needed pain regimen.? PT/OT.? Plan for [facility] pending insurance approval.? Surgical cultures initially with suspected gram- positive cocci.? Cultures now preliminary with no growth, final pending.? Continue IV vancomycin/doxy pending final cultures.? ID following. 2.? Acute blood loss anemia secondary to GI bleed on chronic normocytic anemia- stool positive for occult blood.? Status post 4 units PRBC.? GI consulted. Underwent EGD which demonstrated grade B reflux esophagitis. No evidence of bleeding. Continue PPI. Hemoglobin now stable. Okay to resume anticoagulation for DVT prophylaxis per GI. Trend CBC. Will need colonoscopy in the future. 3.? Postoperative hypotension-resolved following fluid bolus. 4. STEVEN-likely related to postoperative hypotension. Quickly resolved. 5. Nonischemic cardiomyopathy-preoperative echocardiogram with EF 60%, mild aortic stenosis.? On metoprolol, lisinopril. 6.? Chronic hyponatremia-appears at baseline.? 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 Trend BMP. Outpatient f/u. 7.? Nonobstructive CAD-on aspirin, metoprolol, lisinopril.? 8.? Hypertension-continue lisinopril, metoprolol. 9.? Hyperlipidemia-continue statin. 10.? Anxiety/depression-on escitalopram. 11.? Hypothyroidism-continue Synthroid. 12.? History of DVT-no longer on anticoagulation.? Resume Xarelto. DVT prophylaxis-SCDs, Xarelto This patient was seen by CEM Rizzo under the supervision of Dr. Gonzalez. Time spent examining patient, reviewing data and subsequent management of care: 14 minutes Documented by User: Dr. Griselda Gonzalez MD 03/02/22 15:50 Objective Data Lab / Micro Data Result Diagrams: 03/02/22 06:09 03/02/22 06:09 Assessment & Plan Assessment/Plan (1) Acute blood loss anemia: (2) Periprosthetic intertrochanteric fracture of femur: Charges/Coding Addendum Addendum: This patient was seen in conjunction with Yasmeen Ann NP. I have independently interviewed and examined the patient and reviewed pertinent historical, laboratory, and other data. I have reviewed her note and concur with her documentation Patient was seen and examined. Patient was eager to eat today. EGD on 03/01/22 showed erosive ileitis, medium amount of retained food in the stomach, retained food in the duodenum. 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
[2022-03-02] MEDS: Vancomycin 1,000 MG in NS 180mls Q24 200 MG IV (20:45)
[2022-03-02] MEDS: Lisinopril 20 MG Tablet PO (21:19)
[2022-03-02] MEDS: MELATONIN 3 MG TABLET PO (22:04)
[2022-03-03] VITALS (8 sets, daily range): BP systolic 88–160; BP diastolic 43–66; PULSE 84–103; RESP 16–19; TEMP 36.5–37.1; O2SAT 95–99
[2022-03-03] MEDS: hydrALAZINE 20 MG/ML Vial 10 MG IV (04:09)
[2022-03-03] MEDS: 0.9% Saline Lock 10 ML Syringe IV (04:12)
[2022-03-03] MEDS: Acetaminophen 500 MG Tablet 1000 MG PO ×3 (05:53→21:23)
[2022-03-03] MEDS: Levothyroxine 100 MCG Tablet PO (05:53)
[2022-03-03 05:57] LABS: Absolute Lymphocyte Count 0.72 X10^3/uL (0.83-4.51); Absolute Neutrophil Count 5.1 X10^3/uL (2.0-7.7); Basophil# 0.02 X10^3/uL; Basophil% 0.3 % (0-1); Eosinophil# 0.08 X10^3/uL; Eosinophils% 1.2 % (0-5); Hematocrit 26.6 % (37-47); Hemoglobin 9.4 g/dL (12.0-15.0); Lymphocyte # 0.72 X10^3/ul (0.83-4.51); Lymphocyte % 10.9 % (19-41); Mean Corp Hgb Conc 35.3 g/dL (32-36); Mean Corpuscular Hgb 31.5 pg (27.0-32.0); Mean Corpuscular Volume 89.3 fL (81-99); Monocyte# 0.62 X10^3/uL; Monocyte% 9.4 % (0-10); NRBC Flagged by Analyzer 0 % (0-5); Neutrophil # 5.06 X10^3/uL (2.7-7.7); Neutrophil % 76.5 % (47-70); Platelet Count 226 K/mm3 (150-450); RBC Distribution Width CV 14.3 % (11.6-14.6); RBC Distribution Width SD 46.7 fl (35.1-43.9); Red Blood Count 2.98 M/mm3 (4.2-5.4); White Blood Count 6.6 K/mm3 (4.4-11.0)
[2022-03-03 06:41] LABS: Anion Gap 6 (5-15); BUN 22 mg/dL (7-18); BUN/Creat Ratio 24.3 RATIO (10-20); Calcium,Total 8.2 mg/dL (8.5-10.1); Chloride 100 mmol/L (98-107); EST Glomerular Filtration Rate 63 mL/min (>60); Est Glom Filt Rate - Afr Amer 77 mL/min (>60); Estimated Creatinine Clearance 37.46 ml/min; Glucose 105 mg/dL (74-106); Potassium 3.5 mmol/L (3.5-5.1); Sodium Level 132 mmol/L (136-145)
[2022-03-03] MEDS: Ondansetron 4 MG/2 ML Vial IV (09:47)
[2022-03-03] MEDS: Escitalopram Oxalate 20 MG Tablet PO (09:56)
[2022-03-03] MEDS: Doxycycline 100 MG CAPSULE PO (09:56)
--- NOTE | 2022-03-03 10:14 | CASEMGMT ---
Discharge Acute Care Certified Nursing Assistant Melissa Discharge Acute Care Certified Nursing Assistant called [facility] see if any beds are available. Lucrecia did not answer so voicemail was left. Will follow up Melissa Monroe Discharge Acute Care Certified Nursing Assistant
--- NOTE | 2022-03-03 10:37 | PCM.PN.ID ---
ID ID: Route of nutrition/ use of supplements: [] Nutritional Intake: [] IV Site: [] Soto Catheter: [] Patient out of bed to chair overall clinically stable. No fever. Currently on vancomycin plus doxycycline. Operative cultures from February 26 no growth. Vital signs reviewed. Lungs are clear heart exam S1-S2 abdomen soft nontender Assessment & Plan Assessment/Plan (1) Periprosthetic intertrochanteric fracture of femur: PLAN: Given the negative culture data from February 26 operative specimens okay to discontinue antimicrobial therapy and observe off antibiotic therapy
[2022-03-03] MEDS: Rivaroxaban 10 MG Tablet PO (10:56)
--- NOTE | 2022-03-03 11:27 | CASEMGMT ---
Discharge Jackhammer Operator Melissa Discharge Jackhammer Operator faxed over referral to Lucrecia at [place]. Will follow up. Melissa Monroe Discharge Jackhammer Operator
--- NOTE | 2022-03-03 13:18 | PN.HOSP_ITS ---
Documented by User: Yasmeen Ann NP, SUPERVISOR REWORK-C 03/03/22 13:22 Subjective Subjective Patient seen and examined. Reports persistent nausea, no further emesis. States she feels full quickly. Denies other symptoms or complaints. Objective Data Objective Data Vital Signs: Vital Signs Temp Pulse Resp BP Pulse Ox O2 Del Method O2 Flow Rate 97.7 F L 90 16 120/54 L 99 Room Air 97 03/03/22 10:50 03/03/22 10:50 03/03/22 10:50 03/03/22 10:50 03/03/22 10:50 03/03/22 10:50 03/03/22 08:01 Oxygen Flow Rate (L/min) 97 Oxygen Delivery Method Room Air Weight: 146 lb 9.718 oz Body Mass Index (BMI) 25.7 Intake & Output: Intake and Output for Last 24 Hours 03/01/22 03/02/22 03/03/22 23:59 23:59 23:59 Intake Total 1434.5 / 1434.5 1320.00 / 1320.00 600 / 600 Output Total 2175 / 2175 1925 / 2075 300 / 300 Balance -740.5 / -740.5 -605.00 / -755.00 300 / 300 Lab / Micro Data Result Diagrams: 03/03/22 05:26 03/03/22 05:26 Labs: Laboratory Results - last 24 hr 03/03/22 05:26: WBC 6.6, RBC 2.98 L, Hgb 9.4 L, Hct 26.6 L, MCV 89.3, MCH 31.5, MCHC 35.3, RDW Std Deviation 46.7 H, RDW Coeff of Tonie 14.3, Plt Count 226, MPV 10.0, Immature Gran % (Auto) 1.700 H, Neut % (Auto) 76.5 H, Lymph % (Auto) 10.9 L, [place] % (Auto) 9.4, Eos % (Auto) 1.2, Baso % (Auto) 0.3, Absolute Neuts (auto) 5.1, Absolute Lymphs (auto) 0.72 L, Nucleated RBC % 0 03/03/22 05:26: Sodium 132 L, Potassium 3.5, Chloride 100, Carbon Dioxide 26.0, Anion Gap 6, BUN 22 H, Creatinine 0.90, Estim Creat Clear Calc 37.46, Est GFR (MDRD) Af Amer 77, Est GFR (MDRD) Non-Af 63, BUN/Creatinine Ratio 24.3 H, Glucose 105, Calcium 8.2 L Micro: Microbiology 02/26/22 15:58 Tissue - Hip Gram Stain - Final 02/26/22 15:58 Tissue - Hip Wound Culture - Preliminary No growth-Final to follow 02/26/22 15:58 Tissue - Hip Anaerobic Culture - Preliminary No growth in 5 days. 02/26/22 15:56 Tissue - Hip Gram Stain - Final 02/26/22 15:56 Tissue - Hip Wound Culture - Preliminary No growth-Final to follow 02/26/22 15:56 Tissue - Hip Anaerobic Culture - Preliminary No growth in 5 days. 02/26/22 16:02 Tissue - Hip Gram Stain - Final 02/26/22 16:02 Tissue - Hip Wound Culture - Preliminary No growth-Final to follow 02/26/22 16:02 Tissue - Hip Anaerobic Culture - Preliminary No growth in 5 days. 02/28/22 13:07 Stool Stool Occult Blood (NOLVIA) - Final Occult Blood Positive Physical Exam Const alert, oriented x3 and no apparent distress Orientation / Consciousness: awake, oriented to person, oriented to place and oriented to time HEENT normocephalic and moist oral mucous membranes Eyes PERRL, EOMs intact bilaterally and conjunctivae normal Neck no lymphadenopathy Resp normal respiratory effort and clear to auscultation bilaterally Cardio regular rate, regular rhythm and no murmurs Peripheral Pulses: pulses 2+ throughout GI normal to inspection, nondistended, normoactive bowel sounds, non-tender and non-distended Extremity normal to inspection Skin no rashes or lesions noted Lesions: no lesions Rashes: no rashes Trauma: no lacerations or abrasions Neuro CN's II-XII intact bilaterally, no focal motor deficits, no sensory deficits noted and deep tendon reflexes 2+ bilaterally Psych mental status grossly normal and affect normal Assessment & Plan Assessment/Plan (1) Periprosthetic intertrochanteric fracture of femur: (2) Acute blood loss anemia: PLAN: Plan 1.? Acute traumatic right oblique fracture through the proximal right femoral diaphysis in the subtrochanteric region adjacent to the femoral stem of the right hip prosthesis-orthopedic medicine consulted.? Underwent ORIF right proximal femur periprosthetic fracture with revision hip replacement 02/26/[address] Matson.? As needed pain regimen.? PT/OT.? Plan for [place] pending insurance approval.? Surgical cultures initially with suspected gram- positive cocci.? Cultures now preliminary with no growth, final pending.? ID consulted. Recommends monitoring off of antibiotics. 2.? Acute blood loss anemia secondary to GI bleed on chronic normocytic anemia- stool positive for occult blood.? Status post 4 units PRBC.? GI consulted.? Und erwent EGD which demonstrated grade B reflux esophagitis.? No evidence of bleeding.? Continue PPI.? Hemoglobin now stable.? Okay to resume anticoagulation for DVT prophylaxis per GI.? Trend CBC.? Will need colonoscopy in the future. Gastric emptying study ordered due to persistent nausea without evidence of retained food on previous EGD. 3.? Postoperative hypotension-resolved following fluid bolus. 4. STEVEN-likely related to postoperative hypotension.? Quickly resolved. 5. Nonischemic cardiomyopathy-preoperative echocardiogram with EF 60%, mild aortic stenosis.? On metoprolol, lisinopril. 6.? Chronic hyponatremia-appears at baseline.? 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 Trend BMP. Outpatient f/u. 7.? Nonobstructive CAD-on aspirin, metoprolol, lisinopril.? 8.? Hypertension-continue lisinopril, metoprolol. 9.? Hyperlipidemia-continue statin. 10.? Anxiety/depression-on escitalopram. 11.? Hypothyroidism-continue Synthroid. 12.? History of DVT-no longer on anticoagulation.? Resume Xarelto. DVT prophylaxis-SCDs, Xarelto This patient was seen by CEM Rizzo under the supervision of Dr. Gonzalez. Discharge plan: Awaiting insurance approval to [facility]. Time spent examining patient, reviewing data and subsequent management of care: 14 minutes Documented by User: Dr. Griselda Gonzalez MD 03/03/22 13:39 Objective Data Lab / Micro Data Result Diagrams: 03/03/22 05:26 03/03/22 05:26 Assessment & Plan Assessment/Plan (1) Periprosthetic intertrochanteric fracture of femur: (2) Acute blood loss anemia: Charges/Coding Addendum Addendum: This patient was seen in conjunction with Yasmeen Ann NP.? I have independently interviewed and examined the patient and reviewed pertinent historical, laboratory, and other data. I have reviewed her note and concur with her documentation Patient was seen and examined.? Patient complained of nausea with eating solid food. Appears to be better with yogurt. Denied any other complaints. Intraoperative cultures are negative so far, final results pending. 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
--- NOTE | 2022-03-03 14:07 | CASEMGMT ---
Discharge Paperboard Boxes Estimator Lucrecia from [facility] called. [facility] can accept patient. [facility]cia will start pre-cert. Patient has been notified and VILMA Domingo has been notified. Melissa Monroe Discharge Paperboard Boxes Estimator
[2022-03-03] MEDS: Senna/Docusate Sodium 1 Tablet 2 TABLET PO (21:23)
[2022-03-03] MEDS: Lisinopril 20 MG Tablet PO (21:24)
[2022-03-04 04:30] VITALS: BP 157/75; PULSE 93; RESP 18; TEMP 36.6; O2SAT 100
[2022-03-04] MEDS: Acetaminophen 500 MG Tablet 1000 MG PO ×3 (05:31→21:30)
[2022-03-04] MEDS: Levothyroxine 112 MCG Tablet PO (05:32)
[2022-03-04 07:21] LABS: Absolute Lymphocyte Count 0.81 X10^3/uL (0.83-4.51); Absolute Neutrophil Count 4.2 X10^3/uL (2.0-7.7); Basophil# 0.02 X10^3/uL; Basophil% 0.3 % (0-1); Eosinophil# 0.21 X10^3/uL; Eosinophils% 3.5 % (0-5); Hematocrit 23.6 % (37-47); Lymphocyte # 0.81 X10^3/ul (0.83-4.51); Lymphocyte % 13.6 % (19-41); Mean Corp Hgb Conc 33.9 g/dL (32-36); Mean Corpuscular Hgb 30.9 pg (27.0-32.0); Mean Corpuscular Volume 91.1 fL (81-99); Mean Platelet Vol. 9.9 fl (6.2-12.0); Monocyte# 0.63 X10^3/uL; Monocyte% 10.6 % (0-10); NRBC Flagged by Analyzer 0 % (0-5); Neutrophil # 4.19 X10^3/uL (2.7-7.7); Neutrophil % 70.3 % (47-70); Platelet Count 257 K/mm3 (150-450); RBC Distribution Width CV 14.7 % (11.6-14.6); RBC Distribution Width SD 48.8 fl (35.1-43.9); Red Blood Count 2.59 M/mm3 (4.2-5.4)
[2022-03-04 08:01] LABS: Anion Gap 5 (5-15); BUN 24 mg/dL (7-18); Calcium,Total 8.1 mg/dL (8.5-10.1); Chloride 104 mmol/L (98-107); Creatinine, Serum 0.96 mg/dL (0.55-1.02); EST Glomerular Filtration Rate 59 mL/min (>60); Est Glom Filt Rate - Afr Amer 71 mL/min (>60); Estimated Creatinine Clearance 35.12 ml/min; Glucose 107 mg/dL (74-106); Potassium 3.5 mmol/L (3.5-5.1); Sodium Level 135 mmol/L (136-145)
[2022-03-04 08:54] LABS: Platelet Count 279 K/mm3 (150-450); RET-HE 32.5 pg (30-35); Reticulocyte Count 2.54 % (0.5-1.5)
[2022-03-04 08:55] LABS: Ferritin 434 ng/mL (8-252); Iron 29 ug/dL (50-170); Iron Binding Capacity,Total 205 ug/dL (250-450); LDH 229 U/L (84-246); PERCENT IRON SATURATION 14.1 % (15.0-55.0)
[2022-03-04 09:30] VITALS: BP 118/53; PULSE 98; RESP 16; TEMP 36.9; O2SAT 98
[2022-03-04] MEDS: Escitalopram Oxalate 20 MG Tablet PO (09:36)
[2022-03-04] MEDS: Senna/Docusate Sodium 1 Tablet 2 TABLET PO ×2 (09:36→21:30)
[2022-03-04] MEDS: Lisinopril 20 MG Tablet PO ×2 (09:36→21:31)
[2022-03-04 09:37] LABS: Hematocrit 25.4 % (37-47); Hemoglobin 8.5 g/dL (12.0-15.0)
--- NOTE | 2022-03-04 11:18 | PN.HOSP_ITS ---
Documented by User: Yasmeen Ann NP, MANAGER DRUG-C 03/04/22 11:28 Subjective Subjective Patient seen and examined. Refused gastric emptying study this morning stating her nausea is chronic and associated with anxiety. Right hip dressing saturated this morning, orthopedic medicine notified. Awaiting insurance approval to [facility]. Objective Data Objective Data Vital Signs: Vital Signs Temp Pulse Resp BP Pulse Ox O2 Del Method O2 Flow Rate 98.5 F 98 16 118/53 L 98 Room Air 97 03/04/22 09:30 03/04/22 09:30 03/04/22 09:30 03/04/22 09:30 03/04/22 09:30 03/04/22 09:48 03/03/22 08:01 Oxygen Flow Rate (L/min) 97 Oxygen Delivery Method Room Air Weight: 149 lb 4.047 oz Body Mass Index (BMI) 25.7 Intake & Output: Intake and Output for Last 24 Hours 03/02/22 03/03/22 03/04/22 23:59 23:59 23:59 Intake Total 1320.00 / 1320.00 2107.67 / 2107.67 177.83 / 177.83 Output Total 1925 / 2075 1700 / 1700 150 / 150 Balance -605.00 / -755.00 407.67 / 407.67 27.83 / 27.83 Lab / Micro Data Result Diagrams: 03/04/22 09:10 03/04/22 06:22 Labs: Laboratory Results - last 24 hr 03/04/22 06:22: WBC 6.0, RBC 2.59 L, Hgb 8.0 L, Hct 23.6 L, MCV 91.1, MCH 30.9, MCHC 33.9, RDW Std Deviation 48.8 H, RDW Coeff of Tonie 14.7 H, Plt Count 257, MPV 9.9, Immature Gran % (Auto) 1.700 H, Neut % (Auto) 70.3 H, Lymph % (Auto) 13.6 L , [place] % (Auto) 10.6 H, Eos % (Auto) 3.5, Baso % (Auto) 0.3, Absolute Neuts (auto) 4.2, Absolute Lymphs (auto) 0.81 L, Nucleated RBC % 0 03/04/22 06:22: Sodium 135 L, Potassium 3.5, Chloride 104, Carbon Dioxide 26.0, Anion Gap 5, BUN 24 H, Creatinine 0.96, Estim Creat Clear Calc 35.12, Est GFR (MDRD) Af Amer 71, Est GFR (MDRD) Non-Af 59 L, BUN/Creatinine Ratio 25.0 H, Glucose 107 H, Calcium 8.1 L 03/04/22 06:22: Retic Count 2.54 H, Immature Retic Fraction 19.30 H, Retic Hgb Equivalent 32.5 03/04/22 06:22: Iron 29 L, TIBC 205 L, Iron Saturation 14.1 L, Ferritin 434 H, Lactate Dehydrogenase 229 03/04/22 09:10: Hgb 8.5 L, Hct 25.4 L Micro: Microbiology 02/26/22 15:58 Tissue - Hip Gram Stain - Final 02/26/22 15:58 Tissue - Hip Wound Culture - Preliminary No growth-Final to follow 02/26/22 15:58 Tissue - Hip Anaerobic Culture - Preliminary No growth in 5 days. 02/26/22 15:56 Tissue - Hip Gram Stain - Final 02/26/22 15:56 Tissue - Hip Wound Culture - Preliminary No growth-Final to follow 02/26/22 15:56 Tissue - Hip Anaerobic Culture - Preliminary No growth in 5 days. 02/26/22 16:02 Tissue - Hip Gram Stain - Final 02/26/22 16:02 Tissue - Hip Wound Culture - Preliminary No growth-Final to follow 02/26/22 16:02 Tissue - Hip Anaerobic Culture - Preliminary No growth in 5 days. 02/28/22 13:07 Stool Stool Occult Blood (NOLVIA) - Final Occult Blood Positive Physical Exam Const alert, oriented x3 and no apparent distress Orientation / Consciousness: awake, oriented to person, oriented to place and oriented to time HEENT normocephalic and moist oral mucous membranes Eyes PERRL, EOMs intact bilaterally and conjunctivae normal Neck no lymphadenopathy Resp normal respiratory effort and clear to auscultation bilaterally Cardio regular rate, regular rhythm and no murmurs Peripheral Pulses: pulses 2+ throughout GI normal to inspection, nondistended, normoactive bowel sounds, non-tender and non-distended Extremity normal to inspection Skin no rashes or lesions noted Skin Narrative: Right hip postoperative dressing saturated with blood, marked per nursing. Lesions: no lesions Rashes: no rashes Trauma: no lacerations or abrasions Neuro CN's II-XII intact bilaterally, no focal motor deficits, no sensory deficits noted and deep tendon reflexes 2+ bilaterally Psych mental status grossly normal and affect normal Assessment & Plan Assessment/Plan (1) Acute blood loss anemia: (2) Periprosthetic intertrochanteric fracture of femur: PLAN: Plan 1.? Acute traumatic right oblique fracture through the proximal right femoral diaphysis in the subtrochanteric region adjacent to the femoral stem of the right hip prosthesis-orthopedic medicine consulted.? Underwent ORIF right proximal femur periprosthetic fracture with revision hip replacement 02/26/[address] Matson.? As needed pain regimen.? PT/OT.? Plan for [place] pending insurance approval.? Surgical cultures initially with suspected gram-positive cocci.? Cultures now preliminary with no growth, final pending.? ID consulted.? Recommends monitoring off of antibiotics. Right hip dressing with increased blood saturation. Orthopedic medicine notified. 2.? Acute blood loss anemia secondary to GI bleed on chronic normocytic anemia- stool positive for occult blood.? Status post 4 units PRBC.? GI consulted.? Underwent EGD which demonstrated grade B reflux esophagitis.? No evidence of ble eding.? Continue PPI.? Hemoglobin now stable.? Okay to resume anticoagulation for DVT prophylaxis per GI.? Trend CBC.? Will need colonoscopy in the future.? 3.? Postoperative hypotension-resolved following fluid bolus. 4. STEVEN-likely related to postoperative hypotension.? Quickly resolved. 5. Nonischemic cardiomyopathy-preoperative echocardiogram with EF 60%, mild aortic stenosis.? On metoprolol, lisinopril. 6.? Chronic hyponatremia-appears at baseline.? 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 Trend BMP. Outpatient f/u. 7.? Nonobstructive CAD-on aspirin, metoprolol, lisinopril.? 8.? Hypertension-continue lisinopril, metoprolol. 9.? Hyperlipidemia-continue statin. 10.? Anxiety/depression-on escitalopram. 11.? Hypothyroidism-continue Synthroid. 12.? History of DVT-no longer on anticoagulation.? Resume Xarelto. DVT prophylaxis-SCDs, Xarelto This patient was seen by CEM Rizzo under the supervision of Dr. Gonzalez. Discharge plan: Awaiting insurance approval to SNF. Time spent examining patient, reviewing data and subsequent management of care: 12 minutes Documented by User: Dr. Griselda Gonzalez MD 03/04/22 16:27 Objective Data Lab / Micro Data Result Diagrams: 03/04/22 09:10 03/04/22 06:22 Assessment & Plan Assessment/Plan (1) Acute blood loss anemia: (2) Periprosthetic intertrochanteric fracture of femur: Charges/Coding Addendum Addendum: This patient was seen in conjunction with Yasmeen Ann NP.? I have independently interviewed and examined the patient and reviewed pertinent historical, laboratory, and other data. I have reviewed her note and concur with her documentation Patient was seen and examined.? Patient declined gastric emptying study. 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 Discharge planning to [facility] facility ongoing Time spent coordinating all aspects of patient's care, discussing with nursin minutes Visit Charges Inpatient E&M: 82160 Subs Hosp L2
[2022-03-04 13:53] VITALS: BP 151/68; PULSE 97; RESP 16; TEMP 36.8; O2SAT 98
--- NOTE | 2022-03-04 13:55 | CHAPLAIN ---
Type of Pastoral Visit _x__ Initial Visit ___ Follow-up Visit ___ On-call Visit ___ General Patient Visit ___ Spiritual Assessment ___ Family Conference ___ Bereavement ___ Rapid Response ___ Code Blue ___ Other (describe below) Pastoral Care Referral From _x__ Patient ___ Family ___ Nurse ___ Physician ___ Academy Director ___ Costing Analyst ___ Other (describe below) Sacrament/Intervention _x__ Active listening ___ Anointing ___ Baptist ___ Bereavement ___ Communion ___ [place] ___ ___ Life review ___ Prayer ___ Reconciliation ___ Sacrament of Sick ___ Supportive presence ___ Wedding ___ Other (describe below) Pastoral Comments patient had four visitors; pt was very verbal and asked several questions of this marine cargo surveyor; explanation of support; pt states she is hoping to discharge soon as they are working on the paperwork right now; left room due to number of visitors
[2022-03-04 16:31] VITALS: BP 135/58; PULSE 95; RESP 16; TEMP 36.6; O2SAT 98
--- NOTE | 2022-03-04 18:19 | PN.ORTHO_ITS ---
Subjective Subjective Patient remains at hospital. Having some continued swelling of the leg. She was recently started on her Xarelto. She initially had a to be left off anticoagulation due to postoperative bleeding and concerns for GI bleed. She did have a saturated hip dressing which was changed today. I was able to examine the dressing today which does show some serous drainage and spotting. Objective Data Objective Data Vital Signs: Vital Signs Temp Pulse Resp BP Pulse Ox O2 Del Method O2 Flow Rate 97.9 F 95 16 135/58 H 98 Room Air 97 03/04/22 16:31 03/04/22 16:31 03/04/22 16:31 03/04/22 16:31 03/04/22 16:31 03/04/22 16:31 03/03/22 08:01 Oxygen Flow Rate (L/min) 97 Oxygen Delivery Method Room Air Weight: 149 lb 4.047 oz Body Mass Index (BMI) 25.7 Intake & Output: Intake and Output for Last 24 Hours 03/02/22 03/03/22 03/04/22 23:59 23:59 23:59 Intake Total 1320.00 / 1320.00 2107.67 / 2107.67 1477.83 / 1477.83 Output Total 1925 / 2075 1700 / 1700 550 / 550 Balance -605.00 / -755.00 407.67 / 407.67 927.83 / 927.83 Lab / Micro Data Attestation: I reviewed the patient's lab results. Result Diagrams: 03/04/22 09:10 03/04/22 06:22 Labs: Laboratory Results - last 24 hr 03/04/22 06:22: WBC 6.0, RBC 2.59 L, Hgb 8.0 L, Hct 23.6 L, MCV 91.1, MCH 30.9, MCHC 33.9, RDW Std Deviation 48.8 H, RDW Coeff of Tonie 14.7 H, Plt Count 257, MPV 9.9, Immature Gran % (Auto) 1.700 H, Neut % (Auto) 70.3 H, Lymph % (Auto) 13.6 L , [place] % (Auto) 10.6 H, Eos % (Auto) 3.5, Baso % (Auto) 0.3, Absolute Neuts (auto) 4.2, Absolute Lymphs (auto) 0.81 L, Nucleated RBC % 0 03/04/22 06:22: Sodium 135 L, Potassium 3.5, Chloride 104, Carbon Dioxide 26.0, Anion Gap 5, BUN 24 H, Creatinine 0.96, Estim Creat Clear Calc 35.12, Est GFR (MDRD) Af Amer 71, Est GFR (MDRD) Non-Af 59 L, BUN/Creatinine Ratio 25.0 H, Glucose 107 H, Calcium 8.1 L 03/04/22 06:22: Retic Count 2.54 H, Immature Retic Fraction 19.30 H, Retic Hgb Equivalent 32.5 03/04/22 06:22: Iron 29 L, TIBC 205 L, Iron Saturation 14.1 L, Ferritin 434 H, Lactate Dehydrogenase 229 03/04/22 09:10: Hgb 8.5 L, Hct 25.4 L Micro: Microbiology 02/26/22 15:58 Tissue - Hip Gram Stain - Final 02/26/22 15:58 Tissue - Hip Wound Culture - Preliminary No growth-Final to follow 02/26/22 15:58 Tissue - Hip Anaerobic Culture - Preliminary No growth in 5 days. 02/26/22 15:56 Tissue - Hip Gram Stain - Final 02/26/22 15:56 Tissue - Hip Wound Culture - Preliminary No growth-Final to follow 02/26/22 15:56 Tissue - Hip Anaerobic Culture - Preliminary No growth in 5 days. 02/26/22 16:02 Tissue - Hip Gram Stain - Final 02/26/22 16:02 Tissue - Hip Wound Culture - Preliminary No growth-Final to follow 02/26/22 16:02 Tissue - Hip Anaerobic Culture - Preliminary No growth in 5 days. 02/28/22 13:07 Stool Stool Occult Blood (NOLVIA) - Final Occult Blood Positive Physical Exam Const alert and oriented x3 Extremity Extremity Narrative: Left lower extremity: Neurovascular intact distally. Patient has increased swelling. Dressing does have some serous spotting. No gross bloody drainage is appreciated. Assessment & Plan Assessment/Plan (1) Periprosthetic intertrochanteric fracture of femur: PLAN: Patient overall has been stable. Her hemoglobins have been stable small decrease in hemoglobin today. She was able to restart her Xarelto however, she was not initially placed on DVT prophylaxis. Because of this and her swelling today I would like to order a Doppler ultrasound to rule out a DVT at this time as she has a history of DVT. Additionally, she had a significant surgery and I think she would benefit from a wound VAC to help with some of the serous drainage from the swelling of the extremity likely related to injury and surgery. We will order for wound VAC to be placed tomorrow for incisional wound VAC. Additionally, infection disease not feel she needs to be on antibiotics for the positive Gram stains. The cultures have been negative. However, I would like the patient to remain on doxycycline for 2 weeks following surgery as we continue to follow cultures. I will place patient back on doxycycline. She should follow-up with orthopedics 2 weeks postoperatively. [facility] Office:
--- NOTE | 2022-03-04 18:23 | VDLE_ITS ---
Reason For Study: swelling RIGHT LEFT GSV is normal. GSV is normal. CFV is compressible, spontaneous, phasic, CFV is compressible, spontaneous, phasic, competent and demonstrates normal competent, and demonstrates normal augmentation. augmentation. FV is compressible, spontaneous, phasic, FV is compressible, spontaneous, phasic, competent and demonstrates normal competent and demonstrates normal augmentation. augmentation. POP V is compressible, spontaneous, phasic, POP V is compressible, spontaneous, phasic, competent and demonstrates normal competent and demonstrates normal augmentation. augmentation. T/P Trunk is compressible. T/P Trunk is compressible. PTV is compressible. PTV is compressible. RT PerV is compressible. LT PerV is compressible. Procedure This is a venous duplex using B-mode, color flow and spectral Doppler. Exam performed portable in patient room. The exam was diagnostic. A preliminary report was called and/or faxed to PCU zinc furnace charger. VL/Venous Duplex US - Marcus Extrem Interpretation Summary No evidence for acute deep venous thrombosis bilateral lower extremities with p atent and compressible bilateral great saphenous veins. Ordering Physician: Vishal Matson Performed By: Cullen Pride RVT
[2022-03-04 21:29] VITALS: BP 152/74; PULSE 91; RESP 20; TEMP 36.8; O2SAT 97
[2022-03-04] MEDS: Doxycycline 100 MG CAPSULE PO (21:31)
[2022-03-05 03:30] VITALS: BP 177/74; PULSE 88; RESP 18; TEMP 36.8; O2SAT 98
[2022-03-05 03:55] VITALS: PULSE 88
[2022-03-05] MEDS: hydrALAZINE 20 MG/ML Vial 10 MG IV (03:55)
[2022-03-05] MEDS: 0.9% Saline Lock 10 ML Syringe IV (03:56)
[2022-03-05 04:01] VITALS: BP 159/60; PULSE 71; RESP 20; TEMP 36.8; O2SAT 99
[2022-03-05] MEDS: Acetaminophen 500 MG Tablet 1000 MG PO ×2 (05:23→12:59)
[2022-03-05] MEDS: Levothyroxine 100 MCG Tablet PO (05:23)
[2022-03-05 07:00] LABS: Absolute Lymphocyte Count 0.68 X10^3/uL (0.83-4.51); Absolute Neutrophil Count 3.9 X10^3/uL (2.0-7.7); Basophil# 0.02 X10^3/uL; Basophil% 0.4 % (0-1); Eosinophil# 0.26 X10^3/uL; Eosinophils% 4.7 % (0-5); Hematocrit 23.8 % (37-47); Hemoglobin 8.1 g/dL (12.0-15.0); Lymphocyte # 0.68 X10^3/ul (0.83-4.51); Lymphocyte % 12.2 % (19-41); Mean Corpuscular Hgb 30.9 pg (27.0-32.0); Mean Corpuscular Volume 90.8 fL (81-99); Mean Platelet Vol. 9.6 fl (6.2-12.0); Monocyte% 10.8 % (0-10); NRBC Flagged by Analyzer 0 % (0-5); Neutrophil # 3.92 X10^3/uL (2.7-7.7); Neutrophil % 70.1 % (47-70); Platelet Count 307 K/mm3 (150-450); RBC Distribution Width CV 14.7 % (11.6-14.6); RBC Distribution Width SD 48.4 fl (35.1-43.9); Red Blood Count 2.62 M/mm3 (4.2-5.4); White Blood Count 5.6 K/mm3 (4.4-11.0)
[2022-03-05 08:57] LABS: Transferrin 124 mg/dL (149-313)
[2022-03-05 09:34] VITALS: BP 133/67; PULSE 100; RESP 18; TEMP 37.3; O2SAT 98
[2022-03-05] MEDS: Doxycycline 100 MG CAPSULE PO (09:48)
[2022-03-05] MEDS: Escitalopram Oxalate 20 MG Tablet PO (09:48)
[2022-03-05] MEDS: Lisinopril 20 MG Tablet PO (09:48)
[2022-03-05] MEDS: Rivaroxaban 10 MG Tablet PO (09:48)
--- NOTE | 2022-03-05 10:53 | CASEMGMT ---
Discharge Insulation Blanket Maker Lucrecia from [facility] called. Pre-cert has been obtained. Patient can go when medically ready. VILMA Domingo notified. Melissa Monroe Discharge Insulation Blanket Maker
--- NOTE | 2022-03-05 11:59 | CASEMGMT ---
Social Work This social media manager updated by discharge planning feeder that precert has been obtained for [facility]. This social media manager updated Dr. Gonzalez on above information. This social media manager updated patient on above information. Patient reports plan to update family. PLAN: [facility], skilled pending medical clearance. Will continue to follow. Naun BEATTY, KEL
--- NOTE | 2022-03-05 13:16 | TREXTCAR_ITS ---
Diet Diet Order/Speech Therapy: 03/02/22 10:37 Diet: Regular - General Is pt able to select menu?: Yes Routine Orders/Code Status Suppository Type: Dulcolax 10mg Suppository Frequency: Daily PRN Routine Lab Work: CBC (within 3 days) and - (within 3 days) Code Status: Full Code Wound(s) r hip: Wound Type: Surgical Incision Dressing Change: applied VAC Via Therapies Weight Bearing: Weight bearing as tolerated Physical Therapy: Eval and Treat Occupational Therapy: Eval and Treat Problem/Diagnosis (1) Periprosthetic intertrochanteric fracture of femur: Status: Acute Code(s): M97.8XXA - Periprosthetic fracture around other internal prosthetic joint, initial encounter; Z96.649 - Presence of unspecified artificial hip joint Allergies/Procedures Done in Hospital Allergies imiquimod [From Aldara] Allergy (Verified 02/25/22 23:49) Unknown Penicillins [PCN] Allergy (Verified 02/25/22 23:49) Anaphylaxis ciprofloxacin [From Cipro] Adverse Reaction (Verified 02/25/22 23:49) Other DIZZINESS furosemide Adverse Reaction (Verified 02/25/22 23:49) low saodium hydrochlorothiazide Adverse Reaction (Verified 02/25/22 23:49) hyponatremia magnesium Adverse Reaction (Verified 02/25/22 23:49) Nausea LIGHTHEADED, NAUSEA, SWEATING prednisone Adverse Reaction (Verified 02/25/22 23:49) Upset Stomach Procedures: 2-D Echocardiogram Type of Care/Length of Stay Estimated LOS: Convalescent Care Less Than 30 days Type of Care Needed: Skilled Rehab Potential: Good Prognosis: Good Additional Orders/Day of Discharge Day of Discharge: 03/05/22 Discharge Plan Admission Admit Date/Time: 02/26/22 02:33 Primary Reason for Your Visit: Right hip fracture Attending Provider: Griselda Gonzalez Primary Care Provider: Alek Chahal Consulting Providers: Vishal Matson ; Rosa Valladares ; Sunil Paul ; Elsa Coleman Instructions Additional Instructions / Restrictions: Follow-up with Dr. Matson in the office in 2 weeks post-op for wound check and x-ray check. Continue with dressing over the left hip. Continue with incisional wound vac for 7 days. Continue antibiotics until 03/12/2022 Discharge Orders/Prescriptions Prescriptions: New acetaminophen [Tylenol] 325 mg Tablet 650 mg PO Q4H PRN PRN (Reason: Fever, pain 1-06/08) Qty: 0 0RF sennosides-docusate sodium [Stool Softener-Stimulant Laxat] 8.6-50 mg Tablet 2 tab PO BID Qty: 0 0RF doxycycline monohydrate 100 mg Capsule 100 mg PO BID 7 Days Qty: 14 0RF Rx Instructions: Antibiotics until 03/12/22 Ensure Surgery 0.08-1.4 gram-kcal/mL Liquid 237 ml PO TIDCM Qty: 0 0RF Xarelto 10 mg Tablet 10 mg PO DAILY Qty: 0 0RF pantoprazole 40 mg tablet,delayed release (DR/EC) 40 mg PO DAILY 30 Days Qty: 30 0RF Continued levothyroxine 100 mcg capsule 100 mcg capsule 100 mcg PO TUTHSA escitalopram oxalate 20 mg tablet 20 mg PO DAILY levothyroxine 112 MCG tablet 112 mcg PO DAILY lisinopril 20 mg tablet 20 mg PO BID Qty: 180 3RF metoprolol succinate 50 mg tablet extended release 24 hr 50 mg PO DAILY Qty: 90 3RF Discontinued aspirin [Adult Aspirin Regimen] 81 mg tablet,delayed release (DR/EC) 81 mg PO DAILY Referrals / Follow Up: Alek Chahal MD [Primary Care Provider] - Vishal Matson MD [STAFF PHYSICIAN] - Within 2 Weeks Disposition Disposition (needs filled in before D/C Order can be placed): Shelter Facility
--- NOTE | 2022-03-05 13:32 | PCM.DC.SUM ---
Providers Date of Admission: 02/26/22 Date of Discharge: 03/05/22 Primary Care Physician: Dr. Alek Chahal MD Consultations 02/26/22 03:40 Consult: Orthopedics Routine Consulting Provider: Vishal Matson Reason for Consult: R hip fracture, fall EMERGENT Consult: No Notified: Yes Date Notified: 02/26/22 Time Notified: 02:36 Method of Notification: per ED. 02/27/22 12:43 Consult: Infectious Disease Routine Consulting Provider: Sunil Paul Reason for Consult: GPC on gram stain post op EMERGENT Consult: No Notified: Yes Date Notified: 02/27/22 Time Notified: 12:50 Method of Notification: Text 02/28/22 14:33 Consult: Gastroenterology Routine Consulting Provider: Deanna [facility] Reason for Consult: GI bleed EMERGENT Consult: No Notified: Yes Date Notified: 02/28/22 Time Notified: 14:34 Method of Notification: Text 03/04/22 18:38 Consult: Onc/Wound/tassel making machine operator Routine Comment: Reason for Consult:: Wound Vac application Reason For Visit: RIGHT HIP FRACTURE Diagnosis Discharge Diagnosis (1) Periprosthetic intertrochanteric fracture of femur: Status: Acute Code(s): M97.8XXA - Periprosthetic fracture around other internal prosthetic joint, initial encounter; Z96.649 - Presence of unspecified artificial hip joint Medications at Discharge Home Medications levothyroxine 100 mcg capsule 100 mcg PO TUTHSA 07/06/18 levothyroxine 112 mcg tablet 112 mcg PO DAILY 02/17/20 escitalopram oxalate 20 mg tablet 20 mg PO DAILY 07/29/21 lisinopril 20 mg tablet 20 mg PO BID #180 tabs 12/17/21 metoprolol succinate 50 mg tablet,extended release 24 hr 50 mg PO DAILY #90 tabs 12/17/21 acetaminophen 325 mg tablet (Tylenol) 650 mg PO Q4H PRN PRN Fever, pain 1-06/08 #0 tabs 03/05/22 doxycycline monohydrate 100 mg capsule 100 mg PO BID 7 days #14 caps 03/05/22 nut.tx.comp. immune systm,reg 0.08 gram-1.4 kcal/mL oral liquid (Ensure Surgery) 237 ml PO TIDCM #0 mL 03/05/22 pantoprazole 40 mg tablet,delayed release 40 mg PO DAILY 30 days #30 tabs 03/05/22 rivaroxaban 10 mg tablet (Xarelto) 10 mg PO DAILY #0 tabs 03/05/22 sennosides 8.6 mg-docusate sodium 50 mg tablet (Stool Softener-Stimulant Laxative) 2 tab PO BID #0 tabs 03/05/22 Hospital Course Operations total hip replacement (right) Procedures 2-D Echocardiogram Summary of Care Provided Minutes Spent on Discharge: 45 Hospital Course: 81-year-old female with multiple comorbidities who presented after a fall. She was attempting to get out of a chair to stand up when she fell and landed on the carpet with her right hip. Patient's hospital management was as follows. 1.?Acute traumatic right oblique fracture through the proximal right femoral diaphysis in the subtrochanteric region adjacent to the femoral stem of the right hip prosthesis-orthopedic medicine consulted.? Underwent ORIF right proximal femur periprosthetic fracture with revision hip replacement 02/26/[address] Matson.?Surgical cultures initially with suspected gram-positive cocci.?ID consulted. Patient was on IV vancomycin. Final cultures were negative. He was monitored off antibiotics. Orthopedics however wanted patient on doxycycline for total of 2 weeks. 2.? Acute blood loss anemia secondary to GI bleed on chronic normocytic anemia. She had stool positive for occult blood.?Status post 4 units PRBC.? GI consulted.? Underwent EGD which demonstrated grade B reflux esophagitis.? No evidence of bleeding.? She was continued on PPI.? Hemoglobin was stable, but did dip when she was restarted on Xarelto. She will need to follow-up with GI for colonoscopy. 3.?Postoperative hypotension-resolved following fluid bolus. 4. STEVEN-likely related to postoperative hypotension.? Quickly resolved. 5. Nonischemic cardiomyopathy-preoperative echocardiogram with EF 60%, mild aortic stenosis.? On metoprolol, lisinopril. 6.? Chronic hyponatremia-appears at baseline.? 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 7.? Nonobstructive CAD-on aspirin, metoprolol, lisinopril.? 8.? Hypertension-continue lisinopril, metoprolol. 9.? Hyperlipidemia-continue statin. 10.? Anxiety/depression-on escitalopram. 11.? Hypothyroidism-continue Synthroid. Physical Exam Narrative Physical Exam: Gen: Comfortable, not pale, not jaundiced CVS:HS I +II, regular, no murmurs RESP: Diminished at lung bases GI: BS present and normal, soft, nontender, no palpable organs EXT:No edema, incisional wound VAC present Weight / BMI Weight Weight: 68.5 kg Body Mass Index (BMI) 25.7 ABG / Lab / Microbiology Data Result Diagrams: 03/05/22 05:49 03/04/22 06:22 Laboratory: Laboratory Results - last 24 hr 03/04/22 06:22: Transferrin 124 L 03/05/22 05:49: WBC 5.6, RBC 2.62 L, Hgb 8.1 L, Hct 23.8 L, MCV 90.8, MCH 30.9, MCHC 34.0, RDW Std Deviation 48.4 H, RDW Coeff of Tonie 14.7 H, Plt Count 307, MPV 9.6, Immature Gran % (Auto) 1.800 H, Neut % (Auto) 70.1 H, Lymph % (Auto) 12.2 L, [place] % (Auto) 10.8 H, Eos % (Auto) 4.7, Baso % (Auto) 0.4, Absolute Neuts (auto) 3.9, Absolute Lymphs (auto) 0.68 L, Nucleated RBC % 0 Microbiology: Microbiology 02/26/22 15:58 Tissue - Hip Gram Stain - Final 02/26/22 15:58 Tissue - Hip Wound Culture - Preliminary No growth-Final to follow 02/26/22 15:58 Tissue - Hip Anaerobic Culture - Preliminary No growth in 5 days. 02/26/22 15:56 Tissue - Hip Gram Stain - Final 02/26/22 15:56 Tissue - Hip Wound Culture - Preliminary No growth-Final to follow 02/26/22 15:56 Tissue - Hip Anaerobic Culture - Preliminary No growth in 5 days. 02/26/22 16:02 Tissue - Hip Gram Stain - Final 02/26/22 16:02 Tissue - Hip Wound Culture - Preliminary No growth-Final to follow 02/26/22 16:02 Tissue - Hip Anaerobic Culture - Preliminary No growth in 5 days. 02/28/22 13:07 Stool Stool Occult Blood (NOLVIA) - Final Occult Blood Positive Radiography Diagnostic Testing: Radiology Impression Venous Doppler Study 03/04/22 18:23 Interpretation Summary No evidence for acute deep venous thrombosis bilateral lower extremities with patent and compressible bilateral great saphenous veins. Ordering Physician: Vishal Matson Performed By: Cullen Pride RVT D/C Instructions Discharge Diet: 2000 mg Sodium Diet Meaningful Use Info Meaningful Use Diagnoses (Choose all that apply): None applicable Discharge Plan Admission Admit Date/Time: 02/26/22 02:33 Primary Reason for Your Visit: Right hip fracture Attending Provider: Griselda Gonzalez Primary Care Provider: Alek Chahal Consulting Providers: Vishal Matson ; Rosa Valladares ; Sunil Paul ; Elsa Coleman Instructions Additional Instructions / Restrictions: Follow-up with Dr. Matson in the office in 2 weeks post-op for wound check and x-ray check. Continue with dressing over the left hip. Continue with incisional wound vac for 7 days. Continue antibiotics until 03/12/2022 Discharge Orders/Prescriptions Prescriptions: New acetaminophen [Tylenol] 325 mg Tablet 650 mg PO Q4H PRN PRN (Reason: Fever, pain 1-06/08) Qty: 0 0RF sennosides-docusate sodium [Stool Softener-Stimulant Laxat] 8.6-50 mg Tablet 2 tab PO BID Qty: 0 0RF doxycycline monohydrate 100 mg Capsule 100 mg PO BID 7 Days Qty: 14 0RF Rx Instructions: Antibiotics until 03/12/22 Ensure Surgery 0.08-1.4 gram-kcal/mL Liquid 237 ml PO TIDCM Qty: 0 0RF Xarelto 10 mg Tablet 10 mg PO DAILY Qty: 0 0RF pantoprazole 40 mg tablet,delayed release (DR/EC) 40 mg PO DAILY 30 Days Qty: 30 0RF Continued levothyroxine 100 mcg capsule 100 mcg capsule 100 mcg PO TUTHSA escitalopram oxalate 20 mg tablet 20 mg PO DAILY levothyroxine 112 MCG tablet 112 mcg PO DAILY lisinopril 20 mg tablet 20 mg PO BID Qty: 180 3RF metoprolol succinate 50 mg tablet extended release 24 hr 50 mg PO DAILY Qty: 90 3RF Discontinued aspirin [Adult Aspirin Regimen] 81 mg tablet,delayed release (DR/EC) 81 mg PO DAILY Referrals / Follow Up: Alek Chahal MD [Primary Care Provider] - Vishal Matson MD [STAFF PHYSICIAN] - Within 2 Weeks Disposition Disposition (needs filled in before D/C Order can be placed): Shelter Facility Charges/Coding Visit Charges Inpatient E&M: 61310 Disch Hosp
--- NOTE | 2022-03-05 13:39 | CASEMGMT ---
Addendum entered by Chayo Garcia 03/05/22 14:34: [id number] completed in [facility] and placed with patient discharge packet. Original Note: Social Work Patient medically cleared by Dr. Gonzalez. This marriage and family social worker set up transportation through [facility] with transportation for 15:00 today. Transportation form completed and placed with patient discharge packet provided to Melissa. Discharge packet includes medication list, transportation form, transfer to extended care form, COVID-19 screening tool, and COVID-19 test results. Melissa to fax discharge packet to [facility]. This marriage and family social worker updated medical team and patient on discharge time. PLAN: skilled. Naun Eddy MSW, BROADCAST ENGINEER-S
[2022-03-05 14:37] VITALS: BP 111/49; PULSE 86; RESP 18; TEMP 36.7; O2SAT 98
== END 2022-03-05 15:19 | disposition skilled nursing facility (03) | DRG 522 ==
LOC: ED 02-26 01:23 → PCU 02-26 02:42
PROVIDERS: Anesthesiology; Internal Medicine; Internal Medicine Gastroenterology; Internal Medicine Infectious Disease; Nurse Practitioner Family; Specialist; Admitting Provider Family Medicine; Emergency Provider Emergency Medicine; PCP Family Medicine; Visit Provider Internal Medicine
PROC: 0SR904Z Replacement of Right Hip Joint with Ceramic on Polyethylene Synthetic Substitute, Open Approach (ICD-10-PCS; CPT 27134; principal; 2022-02-26 13:15)
PROC: 0DJ08ZZ Inspection of Upper Intestinal Tract, Via Natural or Artificial Opening Endoscopic (ICD-10-PCS; CPT 43235; principal; 2022-03-01 14:00)
DX: S72.141A Displaced intertrochanteric fracture of right femur, initial encounter for closed fracture (principal); E22.2 Syndrome of inappropriate secretion of antidiuretic hormone; I42.8 Other cardiomyopathies; M97.8XXA Periprosthetic fracture around other internal prosthetic joint, initial encounter; D62 Acute posthemorrhagic anemia; N17.9 Acute kidney failure, unspecified; I25.10 Atherosclerotic heart disease of native coronary artery without angina pectoris; E03.9 Hypothyroidism, unspecified; E78.5 Hyperlipidemia, unspecified; I10 Essential (primary) hypertension; I35.0 Nonrheumatic aortic (valve) stenosis; F41.9 Anxiety disorder, unspecified; D64.9 Anemia, unspecified; I95.81 Postprocedural hypotension; K21.00 Gastro-esophageal reflux disease with esophagitis, without bleeding; W07.XXXA Fall from chair, initial encounter; F32.A Depression, unspecified; Z79.82 Long term (current) use of aspirin; Z87.891 Personal history of nicotine dependence; N28.89 Other specified disorders of kidney and ureter; Z79.01 Long term (current) use of anticoagulants; Z66 Do not resuscitate; Z86.718 Personal history of other venous thrombosis and embolism; Y92.009 Unspecified place in unspecified non-institutional (private) residence as the place of occurrence of the external cause; Z96.641 Presence of right artificial hip joint
CPT/HCPCS: 36415; 72170; 73501; 73502; 73552; 80048; 80053; 80202; 82274; 82728; 83540; 83550; 83615; 83930; 83935; 84300; 84443; 84466; 85014; 85018; 85025; 85045; 86850; 86900; 86901; 86920; 86922; 87015; 87070; 87075; 87102; 87116; 87176; 87205; 87206; 87426; 93005; 93306; 93970; 97110; 97116; 97162; 97166; 97530; 97535; 99251; 99285; C1776; J7030; J7040; J7050; J7120; P9016; Q9957; A4216; C8929; G0463; J2405

== ENCOUNTER → 2022-03-09 | Outpatient (REF) | payer SELFPAY ==
[2022-03-09 07:40] LABS: Absolute Lymphocyte Count 0.83 X10^3/uL (0.83-4.51); Absolute Neutrophil Count 3.7 X10^3/uL (2.0-7.7); Basophil# 0.02 X10^3/uL; Basophil% 0.4 % (0-1); Eosinophil# 0.08 X10^3/uL; Eosinophils% 1.6 % (0-5); Hematocrit 24.2 % (37-47); Hemoglobin 7.9 g/dL (12.0-15.0); Lymphocyte # 0.83 X10^3/ul (0.83-4.51); Lymphocyte % 16.3 % (19-41); Mean Corp Hgb Conc 32.6 g/dL (32-36); Mean Corpuscular Hgb 31.5 pg (27.0-32.0); Mean Corpuscular Volume 96.4 fL (81-99); Mean Platelet Vol. 9.4 fl (6.2-12.0); Monocyte# 0.43 X10^3/uL; Monocyte% 8.5 % (0-10); NRBC Flagged by Analyzer 0 % (0-5); Neutrophil # 3.67 X10^3/uL (2.7-7.7); Neutrophil % 72.2 % (47-70); Platelet Count 490 K/mm3 (150-450); RBC Distribution Width CV 15.4 % (11.6-14.6); RBC Distribution Width SD 53.7 fl (35.1-43.9); Red Blood Count 2.51 M/mm3 (4.2-5.4); White Blood Count 5.1 K/mm3 (4.4-11.0)
[2022-03-09 07:49] LABS: Anion Gap 5 (5-15); BUN 21 mg/dL (7-18); BUN/Creat Ratio 21.9 RATIO (10-20); Calcium,Total 8.2 mg/dL (8.5-10.1); Chloride 106 mmol/L (98-107); Creatinine, Serum 0.96 mg/dL (0.55-1.02); EST Glomerular Filtration Rate 59 mL/min (>60); Est Glom Filt Rate - Afr Amer 71 mL/min (>60); Glucose 94 mg/dL (74-106); Potassium 3.5 mmol/L (3.5-5.1); Sodium Level 140 mmol/L (136-145)
== END | disposition home or self-care (01) ==
LOC: OLS.WHLTCC 05:00
PROVIDERS: PCP Family Medicine; Visit Provider Family Medicine
DX: M97.01XD Periprosthetic fracture around internal prosthetic right hip joint, subsequent encounter (principal); R54 Age-related physical debility; M62.81 Muscle weakness (generalized)
CPT/HCPCS: 36415; 80048; 85025

== ENCOUNTER → 2022-03-12 | Outpatient (REF) | payer SELFPAY ==
[2022-03-12 09:48] LABS: Absolute Lymphocyte Count 0.77 X10^3/uL (0.83-4.51); Absolute Neutrophil Count 3.6 X10^3/uL (2.0-7.7); Basophil# 0.02 X10^3/uL; Basophil% 0.4 % (0-1); Eosinophil# 0.07 X10^3/uL; Eosinophils% 1.4 % (0-5); Hemoglobin 8.2 g/dL (12.0-15.0); Lymphocyte # 0.77 X10^3/ul (0.83-4.51); Lymphocyte % 15.7 % (19-41); Mean Corp Hgb Conc 32.8 g/dL (32-36); Mean Corpuscular Hgb 31.3 pg (27.0-32.0); Mean Corpuscular Volume 95.4 fL (81-99); Mean Platelet Vol. 9.6 fl (6.2-12.0); Monocyte% 8.2 % (0-10); NRBC Flagged by Analyzer 0 % (0-5); Neutrophil # 3.61 X10^3/uL (2.7-7.7); Neutrophil % 73.7 % (47-70); Platelet Count 536 K/mm3 (150-450); RBC Distribution Width CV 15.8 % (11.6-14.6); RBC Distribution Width SD 54.3 fl (35.1-43.9); Red Blood Count 2.62 M/mm3 (4.2-5.4); White Blood Count 4.9 K/mm3 (4.4-11.0)
[2022-03-12 09:56] LABS: Anion Gap 4 (5-15); BUN 21 mg/dL (7-18); BUN/Creat Ratio 22.7 RATIO (10-20); Calcium,Total 8.3 mg/dL (8.5-10.1); Chloride 104 mmol/L (98-107); Creatinine, Serum 0.92 mg/dL (0.55-1.02); EST Glomerular Filtration Rate 62 mL/min (>60); Est Glom Filt Rate - Afr Amer 75 mL/min (>60); Glucose 90 mg/dL (74-106); Potassium 3.2 mmol/L (3.5-5.1); Sodium Level 140 mmol/L (136-145)
== END | disposition home or self-care (01) ==
LOC: OLS.WHLTCC 08:03
PROVIDERS: PCP Family Medicine; Visit Provider Family Medicine
DX: M97.01XD Periprosthetic fracture around internal prosthetic right hip joint, subsequent encounter (principal); R54 Age-related physical debility; M62.81 Muscle weakness (generalized)
CPT/HCPCS: 36415; 80048; 85025

== ENCOUNTER → 2022-03-16 | Outpatient (REF) | payer SELFPAY ==
[2022-03-16 08:05] LABS: Hematocrit 26.1 % (37-47); Hemoglobin 8.3 g/dL (12.0-15.0); Mean Corp Hgb Conc 31.8 g/dL (32-36); Mean Corpuscular Hgb 30.9 pg (27.0-32.0); Mean Platelet Vol. 10.1 fl (6.2-12.0); Platelet Count 446 K/mm3 (150-450); RBC Distribution Width CV 15.9 % (11.6-14.6); RBC Distribution Width SD 55.9 fl (35.1-43.9); Red Blood Count 2.69 M/mm3 (4.2-5.4); White Blood Count 4.1 K/mm3 (4.4-11.0)
[2022-03-16 08:34] LABS: Anion Gap 5 (5-15); BUN 21 mg/dL (7-18); BUN/Creat Ratio 21.8 RATIO (10-20); Calcium,Total 8.6 mg/dL (8.5-10.1); Chloride 106 mmol/L (98-107); Creatinine, Serum 0.96 mg/dL (0.55-1.02); EST Glomerular Filtration Rate 59 mL/min (>60); Est Glom Filt Rate - Afr Amer 71 mL/min (>60); Glucose 94 mg/dL (74-106); Potassium 3.7 mmol/L (3.5-5.1); Sodium Level 142 mmol/L (136-145)
== END | disposition home or self-care (01) ==
LOC: OLS.WHLTCC 05:00
PROVIDERS: PCP Family Medicine; Visit Provider Family Medicine
DX: M97.01XD Periprosthetic fracture around internal prosthetic right hip joint, subsequent encounter (principal); R54 Age-related physical debility; M62.81 Muscle weakness (generalized); R27.8 Other lack of coordination
CPT/HCPCS: 36415; 80048; 85027

== ENCOUNTER → 2022-03-20 | Outpatient (CLI) | payer MEDICARE, SELFPAY ==
--- NOTE | 2022-03-20 16:15 | VDLE_ITS ---
Reason For Study: RLE pain RIGHT GSV is normal. CFV is compressible, spontaneous, phasic, competent and demonstrates normal augmentation. FV is compressible, spontaneous, phasic, competent and demonstrates normal augmentation. POP V is compressible, spontaneous, phasic, competent and demonstrates normal augmentation. T/P Trunk is compressible. PTV is compressible. RT PerV is compressible. Procedure This is a venous duplex using B-mode, color flow and spectral Doppler. Exam performed in department. The study was technically difficult. PT unable to move RLE for positioning . Exam is out of order. A preliminary report was called and/or faxed to Genaro Zamora PA-C @ [phone] 4:45 pm,. VL/Venous Duplex US, Unilateral Interpretation Summary Deep veins of the right lower extremity are patent and compressible segmentally . There is no evidence of right lower extremity deep vein thrombosis. Valvular competence javan ears intact within the proximal deep venous system on the right . The right great saphenous vein a ppears patent and compressible segmentally. Ordering Physician: Genaro Zamora Referring Physician: Alek Chahal Performed By: Mary Leigh, KIM, RVT
== END | disposition home or self-care (01) ==
LOC: CVS 16:07
PROVIDERS: PCP Family Medicine; Referring Provider Physician Assistant; Visit Provider Physician Assistant
DX: M79.661 Pain in right lower leg (principal)
CPT/HCPCS: 93971

== ENCOUNTER → 2022-07-15 | Outpatient (CLI) | payer MEDICARE, SELFPAY ==
--- NOTE | 2022-07-15 12:06 | BI_ITS ---
MAMMOGRAPHY - BILATERAL SCREENING REASON FOR EXAM: Female, 81 years old. Routine annual screening examination. PERTINENT HISTORY: Non-contributory. TECHNIQUE: Digital bilateral breast saurabh (3D mammographic acquisition) in the CC and MLO projections. 2-D mediolateral oblique (MLO) and craniocaudad (CC) views of both breasts were obtained. CAD: Full Field Digital Mammography with Computer Added Detection was performed. COMPARISON: Comparison is made with prior study of 01/02/2020 and 11/16/2018. FINDINGS: Breast Composition: The breasts are heterogeneously dense, which may obscure small masses. There are no dominant masses or suspicious calcifications. Stable secretory calcification. No other significant abnormalities are identified. There has been no significant change since the prior study. BI/SCRN MAMM (CAD)W/SAURABH BILAT IMPRESSION: Stable bilateral screening mammogram. Yearly follow-up mammogram recommended. (A) ASSESSMENT CATEGORY: BIRADS Category 2: Benign. A letter regarding these results will be sent to the patient by the facility within 30 days. Approximately 10% of breast cancers are not detected by mammography. A normal mammogram should not delay biopsy of a clinically suspicious abnormality. [id number] Electronically Signed: Troy Limon MD at 13:13 EST ,
== END | disposition home or self-care (01) ==
LOC: OPBI 12:03
PROVIDERS: PCP Family Medicine; Referring Provider Family Medicine; Visit Provider Family Medicine
DX: Z12.31 Encounter for screening mammogram for malignant neoplasm of breast (principal)
CPT/HCPCS: 77063; 77067

== ENCOUNTER → 2023-01-04 | Outpatient (CLI) | payer MEDICARE, SELFPAY ==
--- NOTE | 2023-01-04 11:52 | RAD_ITS ---
INDICATION: Heart Catheterization EXAMINATION/TECHNIQUE: X-RAY - XR Chest 2 Views COMPARISON: 04/02/2020 FINDINGS: LIFE-SUPPORT AND LINES: 1. None HEART AND VESSELS: Cardiac silhouette is unchanged, tortuous at the ramus aorta is present. No congestive failure. LUNGS AND PLEURAL SPACES: Coarse interstitial markings at the lung bases. Pulmonary parenchyma however is hyperexpanded. Pleural thickening at the lung apices. No acute infiltrate or consolidation. No pulmonary mass is noted. MEDIASTINUM AND HILAR REGIONS: No masses adenopathy noted. No areas of calcification. Visualized upper airway is normal in position. BONY ELEMENTS: No acute bony changes noted. RAD/Chest PA and Lateral IMPRESSION: 1. Sequelae of COPD. Chronic interstitial changes lung bases and at the apices. 2. No evidence of acute cardiopulmonary process. Electronically Signed: Gurwinder Marie MD at 0:10 EDT ,
[2023-01-04 12:33] LABS: Absolute Lymphocyte Count 1.38 X10^3/uL (0.83-4.51); Absolute Neutrophil Count 3.8 X10^3/uL (2.0-7.7); Basophil# 0.04 X10^3/uL; Basophil% 0.7 % (0-1); Eosinophil# 0.35 X10^3/uL; Eosinophils% 5.9 % (0-5); Hematocrit 32.2 % (37-47); Hemoglobin 10.6 g/dL (12.0-15.0); Lymphocyte # 1.38 X10^3/ul (0.83-4.51); Lymphocyte % 23.1 % (19-41); Mean Corp Hgb Conc 32.9 g/dL (32-36); Mean Corpuscular Volume 94.2 fL (81-99); Mean Platelet Vol. 10.2 fl (6.2-12.0); Monocyte# 0.44 X10^3/uL; Monocyte% 7.4 % (0-10); NRBC Flagged by Analyzer 0 % (0-5); Neutrophil # 3.76 X10^3/uL (2.7-7.7); Neutrophil % 62.7 % (47-70); Platelet Count 254 K/mm3 (150-450); RBC Distribution Width CV 15.5 % (11.6-14.6); RBC Distribution Width SD 53.3 fl (35.1-43.9); Red Blood Count 3.42 M/mm3 (4.2-5.4)
[2023-01-04 12:52] LABS: Anion Gap 5 (5-15); BUN 17 mg/dL (7-18); BUN/Creat Ratio 21.3 RATIO (10-20); Calcium,Total 9.2 mg/dL (8.5-10.1); Chloride 102 mmol/L (98-107); EST Glomerular Filtration Rate 73 mL/min (>60); Est Glom Filt Rate - Afr Amer 88 mL/min (>60); Glucose 104 mg/dL (74-106); Potassium 4.4 mmol/L (3.5-5.1); Sodium Level 137 mmol/L (136-145)
== END | disposition home or self-care (01) ==
LOC: RAD 11:47
PROVIDERS: PCP Family Medicine; Referring Provider Nurse Practitioner Gerontology; Visit Provider Nurse Practitioner Gerontology
DX: I25.10 Atherosclerotic heart disease of native coronary artery without angina pectoris (principal); Z95.5 Presence of coronary angioplasty implant and graft
CPT/HCPCS: 36415; 71046; 80048; 85025

== ENCOUNTER 2023-01-21 11:25 | Observation (INO) | payer MEDICARE, SELFPAY ==
[2023-01-20 09:20] VITALS: BMI 22.8
[2023-01-21] VITALS (10 sets, daily range): BP systolic 105–146; BP diastolic 52–83; PULSE 65–79; RESP 16–19; TEMP 36.8–37; O2SAT 95–100; BMI 22.3
--- NOTE | 2023-01-21 11:38 | CL.I_ITS ---
Patient Name: JENNY MARI I Study Date: 01/21/2023 Performing: Santhosh Mack MD Ht: 62 inches 157.48 cm : 1940 Wt: 125 lbs 56.7 kg Age: 82 Gender: female BSA: 1.57 PROCEDURE(S) PERFORMED IC12-(77046/[id number])LEOBARDO W/WO PTCA, SINGLE CORONARY ARTERY CLINICAL PROFILE AND CO-MORBIDITIES Indications: Staged PCI of known LAD stenosis Heart Failure: None Stress/Imaging Stress/Image Study Performed: No CONCLUSIONS Successful LEOBARDO to pLAD RECOMMENDATIONS If tolerated, triple therapy with ASA 81mg, Plavix and Eliquis for 1 month and then plavix and Eliquis. If patient has bleeding issues on triple therapy then she can be switched to plavix and eliquis alone DESCRIPTION OF PROCEDURE The patient arrived to the procedure lab. The risks and benefits of the procedure as well as a full description of our services here and current unavailability of surgical backup were fully explained to the patient and/or their significant other prior to the catheterization. The Timeout was completed, verifying the correct patient and procedure. The patient's procedural site was prepped and draped in the usual fashion. Local anesthetic was given subcutaneously to right radial region with Lidocaine 2%. Using a modified Seldinger technique, arterial access was obtained via the right radial artery, a 6Fr sheath was inserted.. Left Coronary Artery selective angiography was performed in multiple views using a 5 Fr. JL3.5 catheter XB 3.5 Guide catheter was inserted and engaged into the LCA. The FFR/iFR wire was inserted. 3.5 x 20 Euphora SC Balloon catheter was advanced across lesion in the LAD, proximal. PTCA balloon inflated at 12 atms for 15 secs. PTCA balloon inflated at 12 atms for 20 secs. PTCA balloon inflated at 8 atms for 5 secs. PTCA balloon inflated at 12 atms for 10 secs. Maykel Resolute 3.5 x 38 Drug Eluting stent was advanced across the lesion in the LAD, proximal. Angiogram performed post stent deployment. The arterial sheath was pulled and a TR Band was applied for hemostasis INTERVENTION INFORMATION LESION SITE: LAD (Proximal) Lesion Complexity: High/C, chronic total occlusion: No, lesion at bifurcation: No, thrombus present: No, lesion length: 35 mm, culprit lesion: Yes, Previously treated lesion: No Pre Stenosis: 80 % Pre intervention SIMON flow: 3 PROCEDURE: Drug Eluting Stent with pre dilatation. Post Stenosis: 0 % Post intervention SIMON flow: 3 Lesion Devices: Cordis 6 Fr XB3.5 100cm Guide Catheter Medtronic SC EUPHORA RX 3.5x20 BALLOON Medtronic Resolute Maykel RX LEOBARDO 3.5x38 COMPLICATIONS No Complications PROCEDURE MEDICATIONS Fentanyl 50 mcg IV Versed 1 mg IV Versed 1 mg IV Oxygen: 2 L/min via nasal cannula Aspirin (325mg) 1 Tabs PO @ 01/21/2023 09:01:16 Heparin given IA 01/21/2023 10:00:24 Verapamil 2.5mg, Ntg 100mcgs, 3000 units of Heparin given IA 01/21/2023 10:00:24 SUMMARY OF HEMODYNAMIC DATA Time AIR REST ECG 08:47:25 ECG 09:32:52 AO 160/36 (49) SA 10:02:16 11:34:09 Signed By Santhosh Mack MD On 01/21/2023 11:37:44 Santhosh Mack MD
--- NOTE | 2023-01-21 11:59 | CRPHASE1 ---
Patient Communication Former Patient:: Phase I PHII Cardiac Rehab Discussed with Patient:: Yes Guide to Cardiac Rehab Given to Patient:: Yes Cardiac Rehab Facility Choice List Given to Patient:: Yes Choice Program [facility] CR PHII:: Communication Given to CR Senior Php Software Developer:: Timothy Mack Refer Phase II Cardiac Rehab:: Yes Sessions:: 36 sessions - 3 days/wk, 12 weeks Cardiac Rehabilitation Info Cardiac Rehabilitation Program Information: Cardiac Rehab The cardiac rehab team at [facility] consists of highly skilled exercise physiologists, nurses, respiratory therapists and physicians working together with you. Our purpose is to help you have a full recovery and achieve the goals you set for yourself. Over the years many of our patients have returned to activities they assumed they would never do again! We can help restore your confidence and motivation to make lifestyle changes that can have a significant impact on your health and quality of life! We can help answer questions and concerns you may have about exercise, lifestyle, medications, diet, stress and anxiety which are common following a hospitalization. WE monitor ECG and vital signs during exercise and discuss your progress with you and report to your physician(s). Cardiac Rehab is proven to help reduce readmissions, improve functional capacity and lower recurrence of problems with your heart. Our Cardiac Rehab program is Certified by the [place] [employer]monary [employer] (AACVPR) and Accredited by the [place] [employer] through our [facility]. You can contact us at . We invite you to call us with your questions or to get started in our program. If you have other questions or concerns be sure to ask your physician/provider during your follow-up visit. WE look forward to seeing you!
--- NOTE | 2023-01-21 12:00 | CRPH1.INST_ITS ---
General Education CAD and cardiac anatomy and function:: Patient communicates acknowledgment, Family communicates acknowledgment, Needs reinforcement Explanation of diagnoses and procedures:: Patient communicates acknowledgment, Family communicates acknowledgment, Needs reinforcement Sign/Symptoms of MD:: Patient communicates acknowledgment, Family communicates acknowledgment, Needs reinforcement Antiplatelet therapy: Family communicates acknowledgment, Needs reinforcement Proper use of NTG-SL: Patient communicates acknowledgment, Family communicates acknowledgment, Needs reinforcement Emergency procedures and activation of EMS: Patient communicates acknowledgment, Family communicates acknowledgment, Needs reinforcement Compliance of all prescribed medications: Patient communicates acknowledgment, Family communicates acknowledgment, Needs reinforcement Smoking Patient Nicotine/Smoking Risk Factors Are:: Non-smoker Dyslipidemia Recommendations Include:: Lipid profile not available Hypertension Recommendations Include:: Maintain BP <130/85 Hypertension:: Patient communicates acknowledgment, Needs reinforcement Heart Disease Patient Heart Disease Risk Factors Are:: Previous cardiac event Recommendations Include:: Educated family members of their risk, Educated family members of importance of prevention of heart disease Heart Disease Response Code:: Patient communicates acknowledgment, Needs reinforcement Diabetes Patient Diabetes Risk Factors Are:: No documented hx of diabetes Sedentary Patient Sedentary Risk Factors Are:: Lack of regular exercise Recommendations Include:: Aerobic exercise 5-7 times/week for 20-30 minutes continuously, Benefits of regular exercise, Discussed home walking program, Monitored Outpatient Cardiac Rehab Sedentary Response Code:: Patient communicates acknowledgment, Needs reinf orcement
[2023-01-21] MEDS: Lisinopril 10 MG Tablet PO (20:33)
[2023-01-21] MEDS: Atorvastatin Calcium 80 MG Tablet PO (20:34)
[2023-01-21] MEDS: Carvedilol 12.5 MG Tablet PO (20:34)
[2023-01-22 02:30] VITALS: BP 108/62; PULSE 66; RESP 16; TEMP 36.9; O2SAT 99
[2023-01-22] MEDS: Levothyroxine 112 MCG Tablet PO (05:55)
[2023-01-22 05:56] LABS: Hemoglobin 9.4 g/dL (12.0-15.0); Mean Corp Hgb Conc 31.3 g/dL (32-36); Mean Corpuscular Volume 95.8 fL (81-99); Mean Platelet Vol. 10.4 fl (6.2-12.0); Platelet Count 253 K/mm3 (150-450); RBC Distribution Width CV 15.2 % (11.6-14.6); RBC Distribution Width SD 53.8 fl (35.1-43.9); Red Blood Count 3.13 M/mm3 (4.2-5.4); White Blood Count 5.6 K/mm3 (4.4-11.0)
[2023-01-22 06:42] LABS: ALB/GLOB Ratio 0.8 RATIO (0.9-2.4); AST(SGOT) 33 U/L (15-37); Alanine Aminotransfer ALT/SGPT 50 U/L (13-56); Albumin, Serum 2.7 g/dL (3.2-5.0); Alkaline Phosphatase 120 U/L (45-117); Anion Gap 7 (5-15); BUN 22 mg/dL (7-18); BUN/Creat Ratio 30.3 RATIO (10-20); Calcium,Total 8.4 mg/dL (8.5-10.1); Chloride 107 mmol/L (98-107); Creatinine, Serum 0.73 mg/dL (0.55-1.02); EST Glomerular Filtration Rate 81 mL/min (>60); Est Glom Filt Rate - Afr Amer 98 mL/min (>60); Estimated Creatinine Clearance 33.12 ml/min; Globulin 3.5 g/dL (2.2-4.2); Glucose 99 mg/dL (74-106); Potassium 3.6 mmol/L (3.5-5.1); Protein, Total 6.2 g/dL (6.4-8.2); Sodium Level 140 mmol/L (136-145)
[2023-01-22 07:40] VITALS: BP 170/79; PULSE 72; RESP 16; TEMP 36.6; O2SAT 97
[2023-01-22] MEDS: Clopidogrel Bisulfate 75 MG Tablet PO (07:50)
[2023-01-22] MEDS: Aspirin E.C. 81 MG Tablet PO (07:50)
[2023-01-22] MEDS: Lisinopril 10 MG Tablet PO (07:50)
[2023-01-22] MEDS: Escitalopram Oxalate 20 MG Tablet PO (07:50)
[2023-01-22] MEDS: Carvedilol 12.5 MG Tablet PO (07:50)
[2023-01-22 08:00] VITALS: O2SAT 93
--- NOTE | 2023-01-22 10:00 | EKG12_ITS ---
Test Reason : AM EKG Blood Pressure : / mmHG Vent. Rate : 067 BPM Atrial Rate : 067 BPM P-R Int : 202 ms QRS Dur : 090 ms QT Int : 416 ms P-R-T Axes : 072 -06 052 degrees QTc Int : 439 ms Normal sinus rhythm Septal infarct , age undetermined Abnormal ECG When compared with ECG of 26-FEB-2022 01:54, Septal infarct is now Present Confirmed by DACIA CAVAZOS, SHARMAINE ([id number]), assistant editor SHILPI CEJA ([id number]) on 01/22/2023 1:30:48 PM Referred By: Timothy Mack Confirmed By:SHARMAINE PEDERSON MD
--- NOTE | 2023-01-22 11:57 | PN_ITS ---
Progress Note Patient is doing well.
--- NOTE | 2023-01-22 11:57 | PCM.PN.BLA ---
Progress Note Patient is doing well.
--- NOTE | 2023-01-22 12:05 | DS.PCM_ITS ---
Providers Date of Admission: 01/21/23 Primary Care Physician: Dr. Alek Chahal MD Reason For Visit: CAD STENT PLACEMANT Diagnosis Discharge Diagnosis (1) History of coronary artery stent placement: Status: Acute Code(s): Z95.5 - Presence of coronary angioplasty implant and graft Plan: Patient came in for staged PCI of LAD which was successfully performed. We will keep the patient on aspirin, Plavix and Eliquis 2.5 mg p.o. twice daily for 1 month and after that we can discontinue the aspirin and continue Plavix and Eliquis alone. This was explained to the patient and family and they understand the instructions. (2) Atherosclerosis of coronary artery of [place] heart without angina pectoris: Status: Acute Code(s): I25.10 - Atherosclerotic heart disease of [place] coronary artery without angina pectoris (3) Essential (primary) hypertension: Status: Chronic Code(s): I10 - Essential (primary) hypertension Medications at Discharge Home Medications levothyroxine 112 mcg tablet 112 mcg PO DAILY PRN 02/17/20 escitalopram oxalate 20 mg tablet 20 mg PO DAILY 07/29/21 clopidogrel 75 mg tablet 75 mg PO DAILY #90 tabs 12/15/22 levothyroxine 100 mcg tablet 100 mcg PO .PRUDENCIO MORILLO,SAT Fill as a courtesy until pt returns to [place] #36 tabs 12/15/22 apixaban 2.5 mg tablet (Eliquis) 2.5 mg PO BID #180 tabs 01/04/23 atorvastatin 80 mg tablet 80 mg PO QHS #90 tabs 01/04/23 lisinopril 10 mg tablet 10 mg PO BID Dose just increased today #180 tabs 01/05/23 carvedilol 12.5 mg tablet 12.5 mg PO BID #180 tabs 01/14/23 Physical Exam Const alert and oriented x3 HEENT normocephalic Resp normal respiratory effort Weight / BMI Weight Weight: 122 lb 3 oz Body Mass Index (BMI) 22.3 ABG / Lab / Microbiology Data Result Diagrams: 01/22/23 05:40 01/22/23 05:40 Laboratory: Laboratory Results - last 24 hr 01/22/23 05:40: WBC 5.6, RBC 3.13 L, Hgb 9.4 L, Hct 30.0 L, MCV 95.8, MCH 30.0, MCHC 31.3 L, RDW Std Deviation 53.8 H, RDW Coeff of Tonie 15.2 H, Plt Count 253, MPV 10.4 01/22/23 05:40: Sodium 140, Potassium 3.6, Chloride 107, Carbon Dioxide 26.0, Anion Gap 7, BUN 22 H, Creatinine 0.73, Estim Creat Clear Calc 33.12, Est GFR (MDRD) Af Amer 98, Est GFR (MDRD) Non-Af 81, BUN/Creatinine Ratio 30.3 H, Glucose 99, Calcium 8.4 L, Total Bilirubin 0.40, AST 33, ALT 50, Alkaline Phosphatase 120 H, Total Protein 6.2 L, Albumin 2.7 L, Globulin 3.5, Albumin/Globulin Ratio 0.8 L Meaningful Use Info Meaningful Use Diagnoses (Choose all that apply): None applicable Discharge Plan Admission Admit Date/Time: 01/21/23 11:25 Primary Reason for Your Visit: For staged PCI of LAD Attending Provider: Timothy Mack Primary Care Provider: Alek Chahal Discharge Orders/Prescriptions Prescriptions: No Action escitalopram oxalate 20 mg tablet 20 mg PO DAILY atorvastatin 80 mg tablet 80 mg PO QHS Qty: 90 3RF Eliquis 2.5 mg tablet 2.5 mg PO BID Qty: 180 3RF levothyroxine 112 MCG tablet 112 mcg PO DAILY PRN Rx Instructions: TAKES EVERY Wednesday & WEDNESDAY clopidogrel 75 mg tablet 75 mg PO DAILY Qty: 90 3RF levothyroxine 100 mcg tablet 100 mcg PO .,WED Qty: 36 0RF lisinopril 10 mg tablet 10 mg PO BID Qty: 180 3RF carvedilol 12.5 mg tablet 12.5 mg PO BID Qty: 180 3RF Rx Instructions: must administer with a meal/food Referrals / Follow Up: Alek Chahal MD [Primary Care Provider] - Disposition Disposition (needs filled in before D/C Order can be placed): Home, Self Care
--- NOTE | 2023-01-22 12:19 | CASEMGMT ---
ROBBY CM in to complete COONEY form with patient. RN ERLIN explained COONEY form to patient, patient voiced understanding. Patient signed COONEY form and filed in chart. Patient provided with copy of signed [employer]ONE[employer] form. Patient had no further questions or concerns at this time.
== END 2023-01-22 12:13 | disposition home or self-care (01) ==
LOC: CLSP 11:30 → PCU 11:30
PROVIDERS: Admitting Provider Specialist; PCP Family Medicine; Referring Provider Specialist; Visit Provider Specialist
DX: R94.31 Abnormal electrocardiogram [ECG] [EKG] (principal); I42.8 Other cardiomyopathies; I48.0 Paroxysmal atrial fibrillation; I25.10 Atherosclerotic heart disease of native coronary artery without angina pectoris; Z95.5 Presence of coronary angioplasty implant and graft; I10 Essential (primary) hypertension; Z79.899 Other long term (current) drug therapy; Z79.01 Long term (current) use of anticoagulants; Z79.890 Hormone replacement therapy; Z79.02 Long term (current) use of antithrombotics/antiplatelets; M19.90 Unspecified osteoarthritis, unspecified site; Z86.718 Personal history of other venous thrombosis and embolism; Z87.891 Personal history of nicotine dependence
CPT/HCPCS: 36415; 80053; 85027; 92928; 93005; 99152; 99153; 99221; J7040; Q9967; C1725; C1769; C1874; C1887; C1894; C9600; G0378

== ENCOUNTER → 2023-02-05 | Outpatient (CLI) | payer MEDICARE, SELFPAY ==
--- NOTE | 2023-02-05 14:05 | CR.ITP_ITS ---
Diagnosis - General Information Admitting Diagnosis: GA, PCI w/coronary stent in October 2022 while in [place] Secondary Diagnosis: Hypertension, Paroxysmal Atrial Fibrillation, Nonsustained Ventricular Tachycardia Personal Learning Style:: Audio/Visual Barriers to Learning: No Barriers Stage of change r/t lifestyle modifications:: Action Gave educational material for:: Treating Heart Disease, Emotions & Heart Disease, Stress Management & Relaxation, Sleep Disorders & Heart Disease, How The Heart Works, What it means to have Heart Disease, How Coronary Artery Disease is Diagnosed, Heart Procedures, What Heart Medications Do, Risk Factors & Modifications, Living an Active Life, Nutrition - Education/Goals Individual Counseling: Initial Assessment: Abnormal Cholesterol Levels, High Blood Pressure Cardiac Rehabilitation Goals: 1. Maintain the individual as the primary focus of care. 2. To improve the patient's quality of life. 3. Identification of cardiac risk factors and provide cardiac risk factor management. 4. Enhance the psychosocial status of the patient. 5. Reconditioning enough to allow the patient to resume customary activities. 6. Control symptoms of cardiac disease Personal Goals: Initial Assessment: Improve management of stress and emotions, Improve energy level, Get back to work, or to resume activities faster, Improve knowledge of cardiac disease, Improve muscle strength and endurance, Improve diet and eating habits (eat healthier), Control risk factors (learn risk factor modification) Scale for measuring improvement of personal goals: Enter appropriate number in Comments. 2 = Unchanged. 3 = Slightly Better. 4 = Moderate Improvement. 5 = Met my Goal - Diagnosis & Disease Process Outcomes/Goals: Pt IDs own risk factors & lifestyle modifications by Session 10, Verbalizes symptoms of angina & response by session 3., Pt independently manages Plan/Interventions: Assist Pt to ID & engage in lifestyle modification to reduce CVD risk, Instruct on individual risk factors, Review symptoms of angina & emergency actions, Review secondary diagnosis & identify educational needs. - Safety Referral to Physical Therapy: No Referral to [facility] Case Management: No Fall Risk Assessed:: Yes Assistive Devices:: Cane - Walking Stick Exercise - Initial Assessment - Visit Date of Eval: 02/05/23 Session #:: 0 - Pre-cardiac rehab evaluation Mets: Pre-: >5 METS for 30 minutes by discharge - Physician Prescribed Exercise Modalities: Treadmill, Airdyne, NuStep Frequency: 3x/week for 12 weeks [36 sessions] Intensity: 60-80% of age predicted maximum heart rate reserve Duration: 30 - 45 minutes Current METSs:: 3.0 Target Heart Rate:: 88-102 Resting Blood Pressure: 170/80 EKG Type: Sinus Rhythm - Outcomes & Goals Goals:: Verbalizes understanding of THR, RPE & goal METS by session 6, Documents in home exercise log/reports 30 min aerobic 5 day/wk by DC, Demonstrates accurate pulse taking by DC - Intervention & Plan Exercise Program Goals: Instruct on personal THR & RPE, Instruct on MET level & personal MET goal, Show patient to take own pulse /validate performance until accurate, Instruct on home exercise - Physical Activity Home Exercise Physical Activity - Home Exercise: Safe Exercise, Warm-up, Self-monitoring, Cool-Down, Home Exercise > 30 min Daily, Sitting Time <3 hours/daily - Outcomes & Goals Outcomes/Goals: Demonstrates correct Warm-up/exercise Cool-Down (S3) if = 2.5 METs, Verbalizes symptoms of exercise intolerance by Session 3 (S3), Demonstrate safe equipment use (S3) & follows exercise prescrition (6) - Intervention & Plan Plan/Intervention: Instruct warm-up & cool-down if exercising at > 2 METs, Instruct on symptoms of exercise intolerance & actions to take, Instruct & monitor on saf, Assess intial functional capacity & safety risk Nutrition - Initial Assessment - Program Goals Nutrition Program Goals: LDL <100 optimal. 100 - 129 Near optimal. 130 - 159 Borderline High. 160 - 189 High. Total Cholesterol <200 desirable. 200 - 239 Borderline High. >/= 240 High. HDL < 40 Low >/=60 High. Triglycerides <150 desirable. <199 optimal. VlDL 5 - 40. HgbA1C <7%. BMI <25 Patient has diagnosis of Hyperlipidemia (ICD E78)?: Yes - Visit Date of Assessment:: 02/05/23 Session #:: 0 - Pre-cardiac rehab evaluation - Cholesterol/Lipids (Other Core Measures) Triglycerides (mg/dL): 62 Total Cholesterol (mg/dL): 206 LDL Cholesterol (mg/dL): 103 HDL Cholesterol (mg/dL): 91 Determine presence & major risk factors that modify LDL goal: Hypertension or hypertensive medication, Age men > 45 years; women >/= 55 years Outcomes/Goals: Pt IDs own risk factors & lifestyle modifications by Session 10, Verbalizes symptoms of angina & response by session 3., Pt independently manages Intervention/Plan: Instruct on personal lipid levels & lipid goals/NCEP guidelines, Instruct on cholesterol Referral to dietitian:: Yes - Medical Nutrition Therapy - Diabetes (Other Core Measures) Diabetes Type: Not Applicable - Weight Mgt (Other Care) Not Applicable: Yes Height: 5 ft 2 in Weight:: 125 lb BMI: 22.8 Diagnosis Overweight/Obesity BMI> 30% ICD-10 E66: No Diagnosis High BMI/Morbid Obesity BMI> 35% ICD-10 Z68: No Outcomes/Goals: Pt sets, maintains & shows weight loss goal & trend during rehab Intervention/Plan: Instruct on ideal BMI & set weight loss goal w/patient - Healthy Eating Habits Outcomes/Goals:: Consume diet rich in vegs,fruits,whole grain/high fiber,fish,lean meat Intervention/Plan:: Assess current eating habits - Education Gave educational materials for:: Healthy eating Nutrition - 30-Day Assessment Nutrition - 60-Day Assessment Nutrition - 90-Day Assessment Nutrition - Final Assessment Core - Initial Assessment - Visit Date of Eval: 02/05/23 Session #:: 0 - Pre-cardiac rehab evaluation - Medication Compliance Preventative Medication(s):: Aspirin, Clopidogrel/P2Y12 inhibit, Statin/lipid, Beta zurdo, Eliquis H/O mental health issues: depression, anxiety, or addiction?: No Doesn?t believe in the benefits of treatment?: No Believes medications are unnecessary or harmful?: No Has a concern about medication side effects?: No Expresses concern over the cost of medications?: No Outcomes/Goals: Verbalizes medications,desired effect & common side effects @ DC, Pt self-reports following medication regimen, Keeps card in wallet w/medications listed by DC Interventions/plans: Instruct on medication effects & side effects, Review medication list w/patient every two weeks, Instruct importance of taking meds as ordered & assist problem solving - Tobacco Use Tobacco Use: Non-smoker - Hypertension Hypertension Diagnosis:: Hypertension ICD-10 I10 Resting Blood Pressure:: 170/80 [place] [employer] Hypertension Guidelines: [place] [employer] Hypertension Guidelines. Normal BP Less than 120/80. Elevated BP 120/80. Hypertension Stage 1: BP 130-139/80-89. Hypertesnion Stage 2: BP 140 or higher/90 or higher. Hypertension Crisis: BP higher than 180/120 Outcomes/Goals: Able to verbalize/achieve optimal blood pressure <130/80, Incorporates diet changes & exercise for blood pressure control by DC Interventions/plan: Instruct on optimal blood pressure, hypertension & medications, Instruct on effects of sodium, alcohol, stress, exercise &hypertension - Tobacco Cessation Referral Smoking Cessation Referral:: No Individual Education/Counseling:: No Education Schedule Given:: Yes Core - 30-Day Assessment Core - 60-Day Assessment Core - 90 Day Assessment Core - Final Assessment Psychosocial - Initial Assess - VIsit Date of Eval: 02/05/23 Session #:: 0 - Pre-cardiac rehab evaluation Not Applicable: No History of previous Mental disease:: Yes History of Emotional Disorders: Depression - Psychosocial Test Tool Used:: [employer] Power QOL Cardiac, PHQ-9 Questionnaire phq-9 Severity: Severity. 1-4 Minimal Depression. 5-9 Mild Depression. 10-14 Moderate Depression. 15-19 Moderately Sever Depression. 20-27 Severe Depression. Rule: - Referral to Behavioral Health PS - Interventions: Yes Attend Stress Management Classes, No Referral to Behavioral Health if PHQ-9 score >9:, No Referral to [facility], No Referral to Physician if PHQ-9 if score is 5-9: - Outcomes/Goals: See list Psychosocial Outcomes/Goals:: ID's personal stressors & 2 strategies to manage stress by discharge - Intervention/Plan: See List Interventions/Plan:: Assess stressors,coping strategies & signs of derpression on admission, Instruct/assist pt to develop coping & personal stress Mgt strategies, Instruct patient to recognize signs & symptoms of depression, Instruct patient to recog Psychosocial - 30-Day Assess Psychosocial - 60-Day Assess Psychosocial - 90-Day Assess Psychosocial - Final Assessmen Patient Health Questionnaire Initial Assessment 1. Little interest or pleasure in doing things: More than half the days 2. Feeling down, depressed, or hopeless: Not at all 3. Trouble falling or staying asleep, or sleeping too much: Not at all 4. Feeling tired or having little energy: Nearly every day 5. Poor appetite or overeating: Not at all 6. Feeling bad about yourself -- or that you are a failure or have let yourself or your family down: Several days 7. Trouble concentrating on things, such as reading the newspaper or watching television: Not at all 8. Moving or speaking so slowly that other people could have noticed. Or the opposite - being so fidgety or restless that you have been moving around a lot more than usual: Not at all 9. Thoughts that you would be better off , or of hurting yourself in some way: Not at all How difficult have these problems made it for you to do your work, take care of things at home, or get along with other people?: Somewhat difficult Total Score: 6 JOSE-Q SV Test - Statements CAD is a disease of the arteries in the heart: False Examples of risk factors for heart disease: True Angina is chest pain or discomfort: I Don't Know The benefits of resistance training include: True Eating more meat and dairy products: False Anti-platelet medications such as aspirin are important: True The only effective way to manage stress: False An exercise warm-up slowly increases heart rate: I Don't Know Prepared, processed foods usually have high sodium: True Depression is common after a heart attack: I Don't Know The statin medications lower cholesterol: I Don't Know To control blood pressure, lower the amount of sodium: I Don't Know If someone gets chest discomfort during walking: False Transfats are partially hydrogenated vegetable oils: True Sleep apnea that is not treated increases the risk: I Don't Know To control cholesterol, one should become a vegetarian: False Someone knows if he/she is exercising at the right level: I Don't Know Diabetes cannot be prevented with exercise & health eating: True Stress is a large risk for heart attack: True A diet that can help lower blood pressure is rich in: True - Total Score Total Correct Responses: 12 Self-Efficacy Initial Assessment We would like to know how confident you are in doing certain activities. Please select your confidence level for:: Select your confidence level for the following using the scale 1-10 where 1 is not at all confident and 10 is totally confident. Your score is the average of all 6 responses. Fatigue: How confident are you that you can keep the fatigue caused by your disease from interfering with the things you want to do? Select Number: 4 Physical Discomfort or Pain: How confident are you that you can keep the physical discomfort or pain of your disease from interfering with the things you want to do? Select Number: 4 Emotional Distress: How confident are you that you can keep the emotional distress caused by your disease from interfering with the things you want to do? Select Number: 8 Other Symptoms or Health Problems: How confident are you that you can keep other symptoms or health problems from interfering with the things you want to do? Select Number: 8 Different Tasks and Activities: How confident are you that you can do the different tasks and activities needed to manage your health condition so as to reduce your need to see a doctor? Select Number: 2 Medication: How confident are you that you can do things other than just taking medication to reduce how much your illness affects your everyday life? Select Number: 10 Total Score:: 6 Nutrition Survey - Nutrition Survey Initial Have you lost >10 lbs over the past 2 months without trying?: No Are you following a special diet at home for diabetes, low fat, or low salt?: No Are you interested in meeting with a dietitian for help understanding your diet?: No Do you eat less than 3 meals a day?: Yes Do you eat fatty meats (young, sausage, ribs, etc), fried foods, desserts, large amounts of salad dressings, margarine, butter, or cheese most days?: No Do you have food allergies? [Enter types in comment field]: No Do you eat in restaurants more than 3 times a week?: No Do you season food with salt, seasoning salt, or garlic salt?: Yes Do you used canned, boxed, frozen meals, or soups, seasoning packets?: Yes Total Score:: 3
--- NOTE | 2023-02-05 14:05 | PCM.CR.HP2 ---
CR - History & Physical - General Arrival date:: 02/05/23 Arrival time:: 14:06 Date of Referral:: 01/21/23 Date of CR Evaluation:: 02/05/23 Referring Physician: Dr. Javier Lehman Primary Diagnosis: PCI w/coronary stenting - History of Present Cardiac Event Onset Date: Enter Onset Date of cardiac illnesses in Comment field below Acute Myocardial Infarction within 12 months:: Yes - 10/2022 w/ new onset atrial fibrillation; nonsustained ventricular tach PTCA or coronary stenting:: Yes - 01/21/2023 Type of Symptoms:: New onset atrial fibrillation, Subequent VA while admitted. Were there any complications?: None - Sleep Disorder Evaluation Hx of Sleep Apnea: No Do you snore loudly (louder than talking or can be heard through closed doors)?: No Do you often feel tired/ fatigued/ sleepy during daytime?: No Has anyone observed you stop breathing during sleep?: No History of Hypertension (for STOP score): Yes STOP Results: Negative - Medications Home Medications: Ambulatory Orders Medication Instructions Recorded levothyroxine 112 mcg tablet 112 mcg PO DAILY PRN 02/17/20 escitalopram oxalate 20 mg tablet 20 mg PO DAILY 07/29/21 clopidogrel 75 mg tablet 75 mg PO DAILY #90 tabs 12/15/22 levothyroxine 100 mcg tablet 100 mcg PO .PRUDENCIO MORILLO SAT Fill as a 12/15/22 courtesy until pt returns to [place] #36 tabs apixaban 2.5 mg tablet (Eliquis) 2.5 mg PO BID #180 tabs 01/04/23 atorvastatin 80 mg tablet 80 mg PO QHS #90 tabs 01/04/23 lisinopril 10 mg tablet 10 mg PO BID Dose just increased 01/05/23 today #180 tabs carvedilol 12.5 mg tablet 12.5 mg PO BID #180 tabs 01/14/23 aspirin 81 mg tablet,delayed 81 mg PO DAILY #30 tabs 01/22/23 release - Allergies Allergies/Adverse Reactions: Allergies imiquimod [From Aldara] Allergy (Verified 01/20/23 09:30) Unknown Penicillins [PCN] Allergy (Verified 01/20/23 09:30) Anaphylaxis amlodipine Adverse Reaction (Intermediate, Verified 01/20/23 09:30) swelling in feet and legs ciprofloxacin [From Cipro] Adverse Reaction (Verified 01/20/23 09:30) Other DIZZINESS furosemide Adverse Reaction (Verified 01/20/23 09:30) low saodium hydrochlorothiazide Adverse Reaction (Verified 01/20/23 09:30) hyponatremia magnesium Adverse Reaction (Verified 01/20/23 09:30) Nausea LIGHTHEADED, NAUSEA, SWEATING prednisone Adverse Reaction (Verified 01/20/23 09:30) Upset Stomach Advanced Directives - Advanced Directives Power of Annual Giving Manager: Yes Living Will: Yes Advance Directives Information Provided: No Advance Directives on File: No DNR Order?:: No - MOLST See MOLST form: No Past Medical History - Covid-19 Screening Fever: No Unexplained muscle aches: No Current respiratory symptoms: No Upper respiratory infections symptoms: No Gastro-intestinal symptoms: No [id number] symptoms: No Has tested positive for COVID-19 in last 30 days: No Had contact w/person w/symptoms or Covid-19 (+) last 14 days: No Has High Risk Exposures ID'd by Health dept/Inf Control team: No 65 years or older:: Yes Lives in Assisted Living facility:: No Has a chronic lung disease or moderate to severe asthma:: No Has a serious heart condition:: No Immunocompromised:: No Severely obese (Body Mass Index of 40 or higher):: No Diabetic:: No Has chronic kidney disease undergoing dialysis:: No Has liver disease:: No - Past Medical Illness Medical History: Past Medical History (Last Updated 01/21/23 @ 12:24 by Radha Ramirez) Arthritis M19.90 Atherosclerosis of coronary artery of [place] heart without angina pectoris I25.10 Compression fracture Depression F32.9 Essential (primary) hypertension I10 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 [id number] w/ 3.5 x 38 mm Resolute Maykel RX LEOBARDO 01/21/23 History of hysterectomy Z90.710 History of left heart catheterization Onset Date: 02/19/11 Z98.890 w/ FFR-LAD 0.92 @ [facility] History of right hip replacement Z96.641 Surgical History: hysterectomy - Family History Summary Family History: Family History (Last Reviewed 01/21/23 @ 11:59 by Nilam Riley) Mother Heart disease Father Heart disease Social History - Smoking History Smoking Status: Never smoker Hx Tobacco Use: No Hx Smoking Exposure: No - Alcohol Use Alcohol Usage: No - Substance Abuse Hx Substance Use: No - Occupation Occupation (List type of work in comments):: Retired - Hobbies, Recreation, Social Activities Hobbies: Reading Recreational Activities: I am able to engage in most, but not all activities Social Environment - Status Marital Status: - Current Living Arrangements Living Environment:: Alone - Children How many children do you have?: 3 Do any of your children live nearby?: Yes - Safety Do you feel safe in your surroundings?: Yes - Assistance Do you need any assistance at home?: no Review of Systems - Review of Systems Hints: Right click = Denies ([place]). Left click = Reports ([place]) Review of Present Symptoms: Reports: Shortness of Breath with Exertion - slightly, climbing stairs for example, Fatigue - all the time, Heart Arrhythmia/Irregularities - Paroxysmal atrial fibrillation & nonsustained ventricular tachycardia currently in a sinus rhythm., Appetite - Normal, Sleep - Normal. Denies: Shortness of Breath at Rest, Dizziness/Lightheadedness, Appetite - Special Diet, Sexual Changes - Pain Is Patient Pain Free?: Yes Pain Location: none Pain Level: 0/10 Risk Factor Assessment - Chief Complaint Chief Complaint: 82 F who presents to CR today following recent new onset of atrail fibrillation adn mild [place] while in [place]. She recently seen Dr. Lehman and had a heart cath performed on 01/21/23 and had a coronary angioplasty implant and graft. - Vital Signs Temperature: 97.8 F Respiratory Rate: 14 Blood Pressure: 170/80 - Pulse Pulse Rate: 70 Pulse Rhythm: Regular - Hypertension How long have you been treated?: to long! 10 + years On medication(s)?: yes Blood Pressure Sitting - Left Arm: 170/80 - Stress Stress: Recent - Blood Cholesterol/Lipids Total Cholesterol (mg/dL) Goal = less than 200 mg/dL: 206 HDL Cholesterol (mg/dL) Goal = less than 40 mg/dL: 91 LDL Cholesterol (mg/dL) Goal = less than 70 mg/dL: 103 Triglycerides (mg/dL) Goal = less than 150 mg/dL: 62 - Obesity Height: 5 ft 2 in Weight:: 125 lb Weight in Pounds: 125.0 lbs Weight Source: Stated by Patient Body Mass Index (BMI): 22.8 Nutritional Referral for Obesity: No - Physical Inactivity Physical Inactivity: Recreational activity - Risk Stratification Risk Guidelines: Lowest Risk: Risk Factor for Smoking, Risk Factor for Dyslipidemia, Risk Factor for Diabetes, Risk Factor for Obesity, Risk Factor for Sedentary Lifestyle, Moderate Risk: Risk Factor for Depression, Highest Risk: Risk Factor for Hypertension - 170/80 - Family History Family History: Family History (Last Reviewed 01/21/23 @ 11:59 by Nilam Riley) Mother Heart disease Father Heart disease Motivation - Motivation to Participate On a scale of 1 to 10, how prepared are you to commit to attending program?: 8 - prepared to do what I can What do you see as barriers to successfully being able to complete the program?: back; arthritis and compression fractures What do you see as the benefits of succesfully completing the program? In other words, what do you hope to get out of participating in the program?: be able to move more, more energy Are there issues you are dealing with that will interfere with completing the program?: half-way back problems Do you have a spouse or signficant other, family or friends who will help support you to complete the program?: Yes
[2023-02-05 14:45] VITALS: BP 170/80; BMI 22.8
[2023-02-05 14:48] VITALS: BP 170/80; PULSE 70; RESP 14; TEMP 36.6; BMI 22.8
== END | disposition home or self-care (01) ==
LOC: CR 14:02
PROVIDERS: PCP Family Medicine; Referring Provider Internal Medicine Cardiovascular Disease; Visit Provider Internal Medicine Cardiovascular Disease
DX: Z95.5 Presence of coronary angioplasty implant and graft (principal); I51.4 Myocarditis, unspecified; I82.401 Acute embolism and thrombosis of unspecified deep veins of right lower extremity; I47.20 Ventricular tachycardia, unspecified; I48.0 Paroxysmal atrial fibrillation; I25.10 Atherosclerotic heart disease of native coronary artery without angina pectoris; F32.9 Major depressive disorder, single episode, unspecified; M19.90 Unspecified osteoarthritis, unspecified site; I35.0 Nonrheumatic aortic (valve) stenosis; I49.3 Ventricular premature depolarization; L57.8 Other skin changes due to chronic exposure to nonionizing radiation; I25.2 Old myocardial infarction; I5A Non-ischemic myocardial injury (non-traumatic); Z90.710 Acquired absence of both cervix and uterus; Z98.890 Other specified postprocedural states; Z96.641 Presence of right artificial hip joint; R06.02 Shortness of breath; R53.83 Other fatigue

== ENCOUNTER 2023-02-26 14:15 | Outpatient (RCR) | payer MEDICARE, SELFPAY ==
[2023-02-05 14:45] VITALS: BMI 22.8
== END 2023-02-26 23:59 ==
LOC: CR 14:15
PROVIDERS: PCP Family Medicine; Visit Provider Internal Medicine Cardiovascular Disease
DX: Z95.5 Presence of coronary angioplasty implant and graft (principal)
CPT/HCPCS: 93798

== ENCOUNTER 2023-03-05 20:32 | Emergency (ER) | payer MEDICARE, SELFPAY ==
[2023-03-05 08:41] VITALS: BMI 23.8
[2023-03-05 20:34] VITALS: BP 179/76; PULSE 69; RESP 16; TEMP 36.6; O2SAT 94; BMI 23.5
--- NOTE | 2023-03-05 20:47 | EX.ED.DYSGE1 ---
HPI History of Present Illness Chief Complaint: Nosebleed Informant: patient Onset/Context/Timing Onset: Hours (2) Context: Sudden Onset Timing: Continuous Quality: Dark red blood Location: Right nares Worsened by: Nothing Relieved by: Blowing her nose Narrative Narrative: Patient presents with epistaxis that began approximately 2 hours prior to arrival. Patient states it is mainly coming from the right nares. Patient states she is blowing her nose and blowing out clots. Patient states that when she blows out the clots it feels better. Patient denies any difficulty breathing or difficulty swallowing. Patient noted some dark blood from the right nares. Patient denies any fevers or chills. Patient denies any chest pain or shortness of breath. Patient denies any nausea or vomiting. Patient denies any lightheadedness or dizziness. [facility] Medical History Arthritis Atherosclerosis of coronary artery of [place] heart without angina pectoris Compression fracture Depression Essential (primary) hypertension Myocarditis Non-ischemic cardiomyopathy Nonrheumatic aortic (valve) stenosis Nonsustained paroxysmal ventricular tachycardia PAF (paroxysmal atrial fibrillation) Premature ventricular beats Right leg DVT Solar elastosis Home Medications levothyroxine 112 mcg tablet 112 mcg PO DAILY PRN 02/17/20 [History Last Taken 01/21/23] escitalopram oxalate 20 mg tablet 20 mg PO DAILY 07/29/21 [History Last Taken 01/21/23] levothyroxine 100 mcg tablet 100 mcg PO .PRUDENCIO MORILLO,SAT Fill as a courtesy until pt returns to [place] #36 tabs 12/15/22 [Rx Last Taken Unknown] apixaban 2.5 mg tablet (Eliquis) 2.5 mg PO BID #180 tabs 01/04/23 [Rx Last Taken 01/16/23] atorvastatin 80 mg tablet 80 mg PO QHS #90 tabs 01/04/23 [Rx Last Taken Unknown] lisinopril 10 mg tablet 10 mg PO BID Dose just increased today #180 tabs 01/05/23 [Rx Last Taken 01/21/23] aspirin 81 mg tablet,delayed release 81 mg PO DAILY #30 tabs 01/22/23 [Rx Last Taken Unknown] carvedilol 25 mg tablet 25 mg PO BID this is a dose increase #180 tabs 02/19/23 [Rx Last Taken Unknown] clopidogrel 75 mg tablet 75 mg PO DAILY #90 tabs 02/26/23 [Rx Last Taken Unknown] Allergy/AdvReac Type Severity Reaction Status Date / Time imiquimod [From Aldara] Allergy Unknown Verified 03/05/23 20:33 Penicillins [PCN] Allergy Anaphylaxis Verified 03/05/23 20:33 amlodipine AdvReac Intermediate swelling Verified 03/05/23 20:33 in feet and legs ciprofloxacin [From Cipro] AdvReac Other Verified 03/05/23 20:33 furosemide AdvReac low saodium Verified 03/05/23 20:33 hydrochlorothiazide AdvReac hyponatremi Verified 03/05/23 20:33 a magnesium AdvReac Nausea Verified 03/05/23 20:33 prednisone AdvReac Upset Verified 03/05/23 20:33 Stomach Family History Mother Heart disease Father Heart disease Surgical History History of cataract surgery History of coronary artery stent placement (01/21/23) History of hysterectomy History of left heart catheterization (02/19/11) History of right hip replacement Social History household members: none Smoking Status: Former smoker how long ago did patient quit smokin years ago alcohol intake: current alcohol intake frequency: holidays/special occasions only substance use type: does not use caffeine: Yes Type: coffee Number of servings: 1 ROS ROS ED Constitutional Constitutional ED: Denies chills or fever(s) Eyes Eyes: Denies blurry vision or change in vision ENT ENT ED: Reports epistaxis; Denies sore throat Cardiovascular Cardiovascular: Denies chest pain or palpitations Respiratory/Chest Respiratory/Chest: Denies cough or dyspnea Gastrointestinal Gastrointestinal: Denies nausea or vomiting Genitourinary Genitourinary ED: Denies dysuria or hematuria Musculoskeletal Musculoskeletal: Denies back pain or neck pain Integumentary Denies abscess or rash Neurologic Neurologic: Denies headache(s) or weakness Allergic/Immunologic Allergic/Immunologic ED: Denies mouth swelling or urticaria EXAM Physical Exam Const Vital Signs: 03/05/23 20:34 Temperature 98 F Temperature Source Temporal Pulse Rate 69 Respiratory Rate 16 Blood Pressure 179/76 H Blood Pressure Mean 110 Pulse Ox 94 Positive well nourished and well developed General Appearance ED: well developed and NAD HEENT Reports moist mucous membranes HEENT Narrative: There is active bleeding from the right nares. There is no septal deviation or septal hematoma. There is mild bloody drainage in the oropharynx. Neck supple and no JVD Resp normal respiratory effort and clear to auscultation bilaterally Cardio regular rate and regular rhythm Neuro oriented x3, CN's II-XII intact bilaterally and no sensory deficits noted Sensorium / Orientation: alert Motor Exam: strength 5/5 throughout Psych Mood & Affect: anxious MDM MDM MDM Narrative Medical decision making narrative: Differential diagnosis includes epistaxis, coagulopathy, and anemia. CBC will be obtained to assess for anemia and leukocytosis. Basic metabolic profile will be obtained to assess for electrolyte abnormality and renal function. PT with INR and PTT will be obtained to assess for coagulopathy. History & Record Review Additional record(s) reviewed:: Prior labs Lab Data Attestation: I reviewed the patient's lab results. Lab results narrative: CBC was reviewed. There is a mild anemia with a hemoglobin of 10.1 and hematocrit of 31.4. These are stable compared to previous results. PT with INR and PTT were reviewed. Pro time was 17.1. INR is 1.4. PTT was normal at 33.8. Basic metabolic profile was reviewed. BUN was slightly elevated at 19 and creatinine was slightly elevated at 1.06. Labs: Laboratory Results - last 24 hr 03/05/23 21:09 WBC 6.0 RBC 3.33 L Hgb 10.1 L Hct 31.4 L MCV 94.3 MCH 30.3 MCHC 32.2 RDW Std Deviation 47.1 H RDW Coeff of Tonie 13.9 Plt Count 209 MPV 10.5 Immature Gran % (Auto) 0.200 Neut % (Auto) 75.3 H Lymph % (Auto) 15.3 L Mcpherson % (Auto) 7.8 Eos % (Auto) 1.2 Baso % (Auto) 0.2 Absolute Neuts (auto) 4.5 Absolute Lymphs (auto) 0.92 Nucleated RBC % 0 PT 17.1 H INR 1.4 APTT 33.8 Sodium 134 L Potassium 3.8 Chloride 100 Carbon Dioxide 28.0 Anion Gap 6 BUN 19 H Creatinine 1.06 H Estim Creat Clear Calc 31.25 Est GFR (MDRD) Af Amer 64 Est GFR (MDRD) Non-Af 53 L BUN/Creatinine Ratio 17.9 Glucose 107 H Calcium 8.6 Treatment and Re-Evaluation :: Lorie mix was applied to cotton balls and was inserted into the right nares. Bleeding appeared to improve after this. A 5.5 cm anterior rapid Rhino was applied to the right nares and was inserted as far as the patient could tolerate. The balloon was inflated with as much air as the patient could tolerate. Patient initially felt some clots going down the back of her throat but states this has improved. On reevaluation, there is no further bleeding noted. Patient was instructed to maintain the nasal packing for 2 days. Patient was instructed to either return to the emergency department or follow-up with her primary care physician or Dr. Melo in 2 days for removal. Patient understood and was agreeable with the plan. All questions were answered. Prior to being discharged, patient was complaining of more bleeding down the back of her throat and from her left nares. The nasal packing was removed from the right nares. More cotton balls with Lorie solution were applied to both nares. A 5.5 cm anterior rapid Rhino was reapplied to the right nares. The balloon was inflated with as much air as the patient can tolerate. I attempted to place a 5.5 cm anterior rapid Rhino to the left nares. Patient could only tolerate advancement of approximately 1 cm of the packing. Patient will be observed in the emergency department. If the bleeding stops, patient will be discharged home. Discharge Plan Triage Chief Complaint: Nosebleed ED Provider: Uche Ordoñez Dx/Rx/DC Orders Clinical Impression: Essential (primary) hypertension, Acute anterior epistaxis Instructions: ED Epistaxis (Adult) Prescriptions: No Action escitalopram oxalate 20 mg tablet 20 mg PO DAILY atorvastatin 80 mg tablet 80 mg PO QHS Qty: 90 3RF Eliquis 2.5 mg tablet 2.5 mg PO BID Qty: 180 3RF levothyroxine 112 MCG tablet 112 mcg PO DAILY PRN Rx Instructions: TAKES EVERY Wednesday & WEDNESDAY aspirin 81 mg tablet,delayed release (DR/EC) 81 mg PO DAILY Qty: 30 0RF levothyroxine 100 mcg tablet 100 mcg PO .PRUDENCIO MORILLO SAT Qty: 36 0RF lisinopril 10 mg tablet 10 mg PO BID Qty: 180 3RF carvedilol 25 mg tablet 25 mg PO BID Qty: 180 3RF Rx Instructions: must administer with a meal/food clopidogrel 75 mg tablet 75 mg PO DAILY Qty: 90 3RF Primary Care Provider: Alek Chahal Referrals: Alek Chahal MD [Primary Care Provider] - 2 Days Disposition Disposition: Home, Self Care
[2023-03-05] MEDS: Mixture 30 ML Bottle TOPICAL (21:00)
[2023-03-05 21:18] LABS: Absolute Lymphocyte Count 0.92 X10^3/uL (0.83-4.51); Absolute Neutrophil Count 4.5 X10^3/uL (2.0-7.7); Basophil# 0.01 X10^3/uL; Basophil% 0.2 % (0-1); Eosinophil# 0.07 X10^3/uL; Eosinophils% 1.2 % (0-5); Hematocrit 31.4 % (37-47); Hemoglobin 10.1 g/dL (12.0-15.0); Lymphocyte # 0.92 X10^3/ul (0.83-4.51); Lymphocyte % 15.3 % (19-41); Mean Corp Hgb Conc 32.2 g/dL (32-36); Mean Corpuscular Hgb 30.3 pg (27.0-32.0); Mean Corpuscular Volume 94.3 fL (81-99); Mean Platelet Vol. 10.5 fl (6.2-12.0); Monocyte# 0.47 X10^3/uL; Monocyte% 7.8 % (0-10); NRBC Flagged by Analyzer 0 % (0-5); Neutrophil # 4.54 X10^3/uL (2.7-7.7); Neutrophil % 75.3 % (47-70); Platelet Count 209 K/mm3 (150-450); RBC Distribution Width CV 13.9 % (11.6-14.6); RBC Distribution Width SD 47.1 fl (35.1-43.9); Red Blood Count 3.33 M/mm3 (4.2-5.4)
[2023-03-05 21:27] LABS: International Normalized Ratio 1.4; Partial Thromboplast Time 33.8 Seconds (24.1-36.2); Prothrombin Time (Protime)PT. 17.1 SECONDS (11.7-14.9)
[2023-03-05 21:35] LABS: Anion Gap 6 (5-15); BUN 19 mg/dL (7-18); BUN/Creat Ratio 17.9 RATIO (10-20); Calcium,Total 8.6 mg/dL (8.5-10.1); Chloride 100 mmol/L (98-107); Creatinine, Serum 1.06 mg/dL (0.55-1.02); EST Glomerular Filtration Rate 53 mL/min (>60); Est Glom Filt Rate - Afr Amer 64 mL/min (>60); Estimated Creatinine Clearance 31.25 ml/min; Glucose 107 mg/dL (74-106); Potassium 3.8 mmol/L (3.5-5.1); Sodium Level 134 mmol/L (136-145)
[2023-03-05 23:00] VITALS: RESP 16
[2023-03-05] MEDS: Acetaminophen 500 MG Tablet 1000 MG PO (23:15)
== END 2023-03-05 23:16 | disposition home or self-care (01) ==
PROVIDERS: Emergency Provider Emergency Medicine; PCP Family Medicine; Visit Provider Emergency Medicine
DX: R04.0 Epistaxis (principal); I48.0 Paroxysmal atrial fibrillation; I10 Essential (primary) hypertension; Z87.891 Personal history of nicotine dependence; I25.10 Atherosclerotic heart disease of native coronary artery without angina pectoris; F32.A Depression, unspecified; Z79.899 Other long term (current) drug therapy; Z79.01 Long term (current) use of anticoagulants; Z79.82 Long term (current) use of aspirin; Z79.02 Long term (current) use of antithrombotics/antiplatelets; Z95.5 Presence of coronary angioplasty implant and graft; Z90.710 Acquired absence of both cervix and uterus; Z96.641 Presence of right artificial hip joint
CPT/HCPCS: 30903; 80048; 85025; 85610; 85730; 99283; A4216

== ENCOUNTER 2023-03-29 14:15 | Outpatient (RCR) | payer MEDICARE, SELFPAY ==
[2023-02-05 14:45] VITALS: BMI 22.8
--- NOTE | 2023-03-05 08:20 | CR.ITP_ITS ---
Exercise - Initial Assessment Visit Session #:: 11 Nutrition - Initial Assessment Visit Session #:: 11 Weight Mgt (Other Care) Height: 5 ft 2 in Weight:: 130 lb BMI: 23.8 Core - Initial Assessment Visit Session #:: 11 Psychosocial - Initial Assess VIsit Session #:: 11 Target Goals Target Goals Patient Health Questionnaire PHQ-9 Screening 30-Day Re-eval Assessment: 1. Little interest or pleasure in doing things: More than half the days 2. Feeling down, depressed, or hopeless: Not at all 3. Trouble falling or staying asleep, or sleeping too much: Not at all 4. Feeling tired or having little energy: Nearly every day 5. Poor appetite or overeating: Not at all 6. Feeling bad about yourself -- or that you are a failure or have let yourself or your family down: Several days 7. Trouble concentrating on things, such as reading the newspaper or watching television: Not at all 8. Moving or speaking so slowly that other people could have noticed. Or the opposite - being so fidgety or restless that you have been moving around a lot more than usual: Not at all 9. Thoughts that you would be better off , or of hurting yourself in some way: Not at all How difficult have these problems made it for you to do your work, take care of things at home, or get along with other people?: Somewhat difficult Total Score: 6 Self-Efficacy 6-Item Scale 30-Day Re-eval Assessment: We would like to know how confident you are in doing certain activities. Please select your confidence level for: Fatigue Select Number: 4 Physical Discomfort or Pain Select Number: 4 Emotional Distress Select Number: 8 Other Symptoms or Health Problems Select Number: 8 Different Tasks and Activities Select Number: 2 Medication Select Number: 10 Total Score:: 6 Nutrition Survey Nutrition Survey Instructions Scoring Instructions Exercise - 30-day Assessment Visit Date of Eval: 03/05/23 Session #:: 11 Physician Prescribed Exercise Modalities: NuStep, SciFit and Lateral Phlebotomy Technologist Frequency: 3x/week for 12 weeks [36 sessions] Intensity: 60-80% of age predicted maximum heart rate reserve Current METSs:: 3.5 Target Heart Rate:: 88-102 Current RPE:: 13.5 Maximum Excercise HR:: 103 Resting Blood Pressure: 150/72 Maximum Exercise Blood Pressure: 160/72 EKG Type: NSR w/1st degree AVB w/rare to occas PAC, rare PVC. Rare episodes of ectop Outcomes & Goals Goals:: Verbalizes understanding of THR, RPE & goal METS by session 6, Documents in home exercise log/reports 30 min aerobic 5 day/wk by DC, Demonstrates accurate pulse taking by DC and Other additional outcome/goals: see below Intervention & Plan Exercise Program Goals: Instruct on personal THR & RPE, Instruct on MET level & personal MET goal, Show patient to take own pulse /validate performance until accurate, Instruct on home exercise and Other additional plan/int 30-day Reassessments 30 day Reassessments:: Progressing Reassessment Notes & Comments:: THR explained Physical Activity Home Exercise Physical Activity - Home Exercise: Safe Exercise, Warm-up, Self-monitoring, Cool-Down, Home Exercise > 30 min Daily and Sitting Time <3 hours/daily Outcomes & Goals Outcomes/Goals: Demonstrates correct Warm-up/exercise Cool-Down (S3) if = 2.5 METs, Verbalizes symptoms of exercise intolerance by Session 3 (S3), Demonstrate safe equipment use (S3) & follows exercise prescrition (6) and Other: See below Intervention & Plan Plan/Intervention: Instruct warm-up & cool-down if exercising at > 2 METs, Instruct on symptoms of exercise intolerance & actions to take, Instruct & monitor on saf, Assess intial functional capacity & safety risk and Other See below 30-day Reassessments 30 day Reassessments:: Progressing Reassessment Notes & Comments:: safe exercise class attended Nutrition - 30-Day Assessment Program Goals Nutrition Program Goals Patient has diagnosis of Hyperlipidemia (ICD E78)?: Yes Visit Date of Eval: 03/05/23 Session #:: 11 Cholesterol/Lipids (Other Core Measures) Determine presence & major risk factors that modify LDL goal: Hypertension or hypertensive medication, Low HDL cholesterol <40 mg/dL*, Family history of premature CHD in Male < 55 years: female <65 yearsFa and Age men > 45 years; women >/= 55 years Outcomes/Goals: Pt IDs own risk factors & lifestyle modifications by Session 10, Verbalizes symptoms of angina & response by session 3., Pt independently manages and Other Additional Outcomes/Goals: Intervention/Plan: Advocate for lipid panel cholesterol medication if applicable, Instruct on personal lipid levels & lipid goals/NCEP guidelines, Instruct on cholesterol and Other additional plan/int Referral to dietitian:: Yes ([facility] nutrition therapy) 30-day Reassessments:: Progressing Reassessment Notes & Comments:: risk factors explained Diabetes (Other Core Measures) Diabetes Type: Not Applicable Weight Mgt (Other Care) Height: 5 ft 2 in Weight:: 130 lb BMI: 23.8 Diagnosis Overweight/Obesity BMI> 30% ICD-10 E66: No Diagnosis High BMI/Morbid Obesity BMI> 35% ICD-10 Z68: No Outcomes/Goals: Pt sets, maintains & shows weight loss goal & trend during rehab and Other additional outcomes/goals Intervention/Plan: Instruct on ideal BMI & set weight loss goal w/patient, Assist pt to ID & incorporate diet changes for weight loss by S9, Refer to Structured Weight Loss program as appropriate, Encourage goal of using 250- 300dcal per session for weight loss and Other additional plan/interventions 30 day Reassessments:: Met Healthy Eating Habits Will attend diet classes:: Yes 30-day Reassessments:: Progressing Reassessment Notes & Comments:: will attend nutrition class Education Gave educational materials for:: Signs & symptoms of hypoglycemia, Signs & symptoms of hyperglycemia, Relate diabetes to coronary artery disease and Healthy eating Nutrition - 60-Day Assessment Weight Mgt (Other Care) Height: 5 ft 2 in Weight:: 130 lb BMI: 23.8 Core - 30-Day Assessment Visit Date of Eval: 03/05/23 Session #:: 11 Medication Compliance Preventative Medication(s):: Aspirin, Clopidogrel/P2Y12 inhibit, Statin/lipid and Eliquis H/O mental health issues: depression, anxiety, or addiction?: No Doesn?t believe in the benefits of treatment?: No Believes medications are unnecessary or harmful?: No Has a concern about medication side effects?: No Expresses concern over the cost of medications?: No Outcomes/Goals: Verbalizes medications,desired effect & common side effects @ DC, Pt self-reports following medication regimen, Keeps card in wallet w/medications listed by DC and Other additional outcome/goals: Interventions/plans: Instruct on medication effects & side effects, Review med ication list w/patient every two weeks, Instruct importance of taking meds as ordered & assist problem solving and Other additional 30-day Reassessments:: Progressing Reassessment Notes & Comments:: encouraged pt to take her meds Tobacco Use Tobacco Use: Non-smoker Hypertension Hypertension Diagnosis:: Hypertension ICD-10 I10 Resting Blood Pressure:: 150/72 [place] [employer] Hypertension Guidelines Peak Exercise Blood Pressure:: 160/72 Outcomes/Goals: Able to verbalize/achieve optimal blood pressure <130/80, Incorporates diet changes & exercise for blood pressure control by DC and Other additional outcomes/goals Interventions/plan: Instruct on optimal blood pressure, hypertension & medications, Instruct on effects of sodium, alcohol, stress, exercise &hypertension and Other additional plan/interventions 30 day Reassessments:: Progressing Reassessment Notes & Comments:: encouraged pt toake her meds Tobacco Cessation Referral Smoking Cessation Referral:: No Individual Education/Counseling:: No Education Schedule Given:: Yes Psychosocial - 30-Day Assess VIsit Date of Eval: 03/05/23 Session #:: 11 History of previous Mental disease:: Yes History of Emotional Disorders: Depression Target Goals Target Goals Psychosocial - 60-Day Assess Target Goals Target Goals Psychosocial - 90-Day Assess Target Goals Target Goals Psychosocial - Final Assessmen Target Goals Target Goals Nutrition - 90-Day Assessment Weight Mgt (Other Care) Height: 5 ft 2 in Weight:: 130 lb BMI: 23.8 Nutrition - Final Assessment Weight Mgt (Other Care) Height: 5 ft 2 in Weight:: 130 lb BMI: 23.8
[2023-03-05 08:41] VITALS: BP 150/72
== END 2023-03-29 23:59 ==
LOC: CR 14:15
PROVIDERS: PCP Family Medicine; Visit Provider Internal Medicine Cardiovascular Disease
DX: Z95.5 Presence of coronary angioplasty implant and graft (principal)
CPT/HCPCS: 93798

== ENCOUNTER → 2023-04-02 | Outpatient (CLI) | payer MEDICARE, SELFPAY ==
[2023-03-05 08:41] VITALS: BMI 23.8
[2023-04-02 13:43] LABS: Absolute Lymphocyte Count 1.36 X10^3/uL (0.83-4.51); Absolute Neutrophil Count 2.8 X10^3/uL (2.0-7.7); Basophil# 0.02 X10^3/uL; Basophil% 0.4 % (0-1); Eosinophil# 0.09 X10^3/uL; Eosinophils% 1.9 % (0-5); Hematocrit 33.8 % (37-47); Hemoglobin 10.7 g/dL (12.0-15.0); Lymphocyte # 1.36 X10^3/ul (0.83-4.51); Lymphocyte % 28.5 % (19-41); Mean Corp Hgb Conc 31.7 g/dL (32-36); Mean Corpuscular Volume 94.7 fL (81-99); Mean Platelet Vol. 10.5 fl (6.2-12.0); Monocyte# 0.47 X10^3/uL; Monocyte% 9.8 % (0-10); NRBC Flagged by Analyzer 0 % (0-5); Neutrophil # 2.83 X10^3/uL (2.7-7.7); Neutrophil % 59.2 % (47-70); Platelet Count 228 K/mm3 (150-450); RBC Distribution Width SD 48.4 fl (35.1-43.9); Red Blood Count 3.57 M/mm3 (4.2-5.4); White Blood Count 4.8 K/mm3 (4.4-11.0)
[2023-04-02 14:19] LABS: Thyroid Stim Hormone (TSH) 1.13 uIU/mL (0.358-3.74)
== END | disposition home or self-care (01) ==
LOC: LAB 13:18
PROVIDERS: PCP Family Medicine; Referring Provider Family Medicine; Visit Provider Family Medicine
DX: D64.9 Anemia, unspecified (principal); E03.9 Hypothyroidism, unspecified
CPT/HCPCS: 36415; 84443; 85025

== ENCOUNTER 2023-04-23 14:54 | Observation (INO) | payer MEDICARE, SELFPAY ==
[2023-04-07 12:55] VITALS: BMI 23.3
[2023-04-23] VITALS (14 sets, daily range): BP systolic 162–207; BP diastolic 67–85; PULSE 63–74; RESP 13–18; TEMP 36.1–36.8; O2SAT 95–99; BMI 22.8; BMI 21.9
--- NOTE | 2023-04-23 17:26 | EX.ED.DYSGE1 ---
HPI History of Present Illness Chief Complaint: Dizziness Narrative Narrative: ThePatient presents when she got tired during cardiac rehab. Patient had heart attack with stent placement October of this year. She is on Plavix, carvedilol, atorvastatin lisinopril. She is also on Eliquis because of a history of atrial fibrillation. She is on Synthroid. She has been going to cardiac rehab and doing well. She can normally do about 10 minutes on this certain machine. Today at 6 minutes she felt tired and could not continue. On the monitor she showed a 10 beat run of nonsustained V. tach. It terminated spontaneously. She never had chest pain with it. She states somebody said she had numbness in her arms but that is not true. She never had numbness. She states her only symptom was tiredness and it has resolved. She feels fine. I note on her chart that there is a comment about nonsustained paroxysmal ventricular tachycardia but I do not know if this was added to her chart after today's episode. She states no one is ever talked to her about a pacemaker or ICD. She has been feeling fine recently. She feels fine now. [facility] Medical History Arthritis Atherosclerosis of coronary artery of kaw heart without angina pectoris Compression fracture Depression Essential (primary) hypertension Myocarditis Non-ischemic cardiomyopathy Nonrheumatic aortic (valve) stenosis Nonsustained paroxysmal ventricular tachycardia PAF (paroxysmal atrial fibrillation) Premature ventricular beats Right leg DVT Solar elastosis Home Medications levothyroxine 112 mcg tablet 112 mcg PO DAILY PRN 02/17/20 [History Last Taken 01/21/23] escitalopram oxalate 20 mg tablet 20 mg PO DAILY 07/29/21 [History Last Taken 01/21/23] levothyroxine 100 mcg tablet 100 mcg PO .PRUDENCIO MORILLO,UMESH Fill as a courtesy until pt returns to [place] #36 tabs 12/15/22 [Rx Last Taken Unknown] apixaban 2.5 mg tablet (Eliquis) 2.5 mg PO BID #180 tabs 01/04/23 [Rx Last Taken 01/16/23] atorvastatin 80 mg tablet 80 mg PO QHS #90 tabs 01/04/23 [Rx Last Taken Unknown] aspirin 81 mg tablet,delayed release 81 mg PO DAILY #30 tabs 01/22/23 [Rx Last Taken Unknown] clopidogrel 75 mg tablet 75 mg PO DAILY #90 tabs 02/26/23 [Rx Last Taken Unknown] losartan 50 mg tablet 50 mg PO BID #60 tabs 04/09/23 [Rx Last Taken Unknown] carvedilol 25 mg tablet 25 mg PO BID this is a dose increase #180 tabs 04/23/23 [Rx Last Taken Unknown] Allergy/AdvReac Type Severity Reaction Status Date / Time imiquimod [From Aldara] Allergy Unknown Verified 03/05/23 20:33 Penicillins [PCN] Allergy Anaphylaxis Verified 03/05/23 20:33 amlodipine AdvReac Intermediate swelling Verified 03/05/23 20:33 in feet and legs ciprofloxacin [From Cipro] AdvReac Other Verified 03/05/23 20:33 furosemide AdvReac low saodium Verified 03/05/23 20:33 hydrochlorothiazide AdvReac hyponatremi Verified 03/05/23 20:33 a magnesium AdvReac Nausea Verified 03/05/23 20:33 prednisone AdvReac Upset Verified 03/05/23 20:33 Stomach Family History Mother Heart disease Father Heart disease Surgical History History of cataract surgery History of coronary artery stent placement (01/21/23) History of hysterectomy History of left heart catheterization (02/19/11) History of right hip replacement Social History household members: none Smoking Status: Former smoker how long ago did patient quit smokin years ago alcohol intake: current alcohol intake frequency: holidays/special occasions only substance use type: does not use caffeine: Yes Type: coffee Number of servings: 1 ROS ROS ED ROS Narrative A complete review of systems was performed and is negative except as documented in the history of present illness. Some specific details below. Constitutional: No recent fevers or chills. EYE: No discharge, visual complaints, or pain. ENT: No difficulty swallowing. No swelling. No pain. No reflux symptoms. CV: See history of present illness. She never had pain or palpitations. Respiratory: She denies any dyspnea at any time. Her only symptom was tiredness. GI: No abdominal pain. No nausea vomiting diarrhea. No blood in stool. : No frequency dysuria or hematuria. Musculoskeletal: No recent trauma. No pains. No swelling. Skin: No rash. Nondiaphoretic. Neuro: No focal weakness or numbness. Endocrine: No polyuria or polydipsia. EXAM Physical Exam Narrative Exam Narrative: CONSTITUTIONAL: Patient is nontoxic in appearance. The patient looks comfortable. Work of breathing looks normal. HEENT: No notable trauma. Mucous membranes moist. No sinus tenderness. No indication of pain with swallowing. EYES: No conjunctival injection. No proptosis. NECK:No JVD. No stridor. CARDIOVASCULAR: Regular rate. Regular rhythm. No notable murmur. No JVD. On the monitor she appears to be in sinus rhythm with a rate about 75. I am not seeing any active duty currently. But I did review outpatient tracer that was sent over with her today. She clearly had a nonsustained V. tach episode with a rate about 175. It was 10 total beats. RESPIRATORY: No respiratory distress. Breathing is unlabored. No wheezes. No rhonchi. No rales. No pain with a deep breath. No chest wall tenderness. Saturations are normal at 96 to 97% on room air showing no hypoxia. GASTROINTESTINAL: Not distended. Bowel sounds are normal. No tenderness. No guarding. No rebound. No palpable mass. No bruit is heard. GENITOURINARY: No tenderness over the bladder. No CVA tenderness. MUSCULOSKELETAL: Atraumatic. No peripheral edema. No cord. No tenderness along the deep venous system. No asymmetry. No distended veins. NEUROLOGICAL: Patient is alert and appropriate. No focal deficit noted. SKIN: No noted rashes. No diaphoresis. PSYCHIATRIC: Patient is calm. Mood is appropriate. Const Vital Signs: 04/23/23 14:55 04/23/23 16:31 04/23/23 16:55 Temperature 97.8 F Temperature Source Temporal Pulse Rate 74 Respiratory Rate 18 Respiratory Effort Normal Non-Labored Respiratory Pattern Normal Blood Pressure 187/83 H 207/85 H Blood Pressure Mean 117 125 Pulse Ox 96 Oxygen Delivery Method Room Air 04/23/23 17:39 Temperature Temperature Source Pulse Rate Respiratory Rate Respiratory Effort Respiratory Pattern Blood Pressure Blood Pressure Mean Pulse Ox Oxygen Delivery Method Room Air MDM MDM MDM Narrative Medical decision making narrative: Patient CBC shows some mild anemia. Patient's electrolytes show minimally low sodium. Potassium is normal. Magnesium is normal. Troponin is negative so far. My independent her potation the patient's single view chest x-ray shows mild cardiomegaly on an AP film. No other acute process. Final reading is similar. I discussed the case with Dr. Mariee on for cardiology. He recommended admission monitoring and repeat her echo as she has not had an echo since her stent and AL in December. Patient is okay with this plan. Lab Data Attestation: I reviewed the patient's lab results. Labs: Laboratory Results - last 24 hr 04/23/23 17:40 WBC 5.0 RBC 3.51 L Hgb 10.5 L Hct 32.7 L MCV 93.2 MCH 29.9 MCHC 32.1 RDW Std Deviation 48.0 H RDW Coeff of Tonie 14.3 Plt Count 203 MPV 10.7 Immature Gran % (Auto) 0.400 Neut % (Auto) 65.8 Lymph % (Auto) 22.1 [place] % (Auto) 9.7 Eos % (Auto) 1.8 Baso % (Auto) 0.2 Absolute Neuts (auto) 3.3 Absolute Lymphs (auto) 1.10 Nucleated RBC % 0 Sodium 130 L Potassium 3.9 Chloride 98 Carbon Dioxide 27.0 Anion Gap 5 BUN 15 Creatinine 0.87 Estim Creat Clear Calc 38.07 Est GFR (MDRD) Af Amer 80 Est GFR (MDRD) Non-Af 66 BUN/Creatinine Ratio 17.3 Glucose 101 Calcium 9.0 Magnesium 1.8 Troponin I High Sens 16 Radiography Diagnostic Testing: Clinical Impression(s) from Imaging Studies Chest X-Ray 04/23/23 17:30 IMPRESSION: Cardiomegaly without radiographic evidence of acute cardiopulmonary disease. Electronically Signed: Jesse Delgado MD at 17:57 EDT Reading Location ID and State: [facility] / [place] Tel , Service support , Management Discussion w/another healthcare provider: Hospitalist and Registered Nurse First Assistant Discharge Plan Triage Chief Complaint: Dizziness ED Provider: Hayden Mcnair Dx/Rx/DC Orders Clinical Impression: History of acute myocardial infarction, Ventricular tachycardia, Acute hyponatremia Prescriptions: No Action escitalopram oxalate 20 mg tablet 20 mg PO DAILY atorvastatin 80 mg tablet 80 mg PO QHS Qty: 90 3RF Eliquis 2.5 mg tablet 2.5 mg PO BID Qty: 180 3RF levothyroxine 112 MCG tablet 112 mcg PO DAILY PRN Rx Instructions: TAKES EVERY Wednesday & WEDNESDAY aspirin 81 mg tablet,delayed release (DR/EC) 81 mg PO DAILY Qty: 30 0RF levothyroxine 100 mcg tablet 100 mcg PO .,WED Qty: 36 0RF clopidogrel 75 mg tablet 75 mg PO DAILY Qty: 90 3RF losartan 50 mg tablet 50 mg PO BID Qty: 60 11RF carvedilol 25 mg tablet 25 mg PO BID Qty: 180 3RF Rx Instructions: must administer with a meal/food Primary Care Provider: Alek Chahal Referrals: Alek Chahal MD [Primary Care Provider] - Disposition Disposition: Acute Care Hospital [facility]
--- NOTE | 2023-04-23 17:30 | RAD_ITS ---
INDICATION: chest pain EXAMINATION/TECHNIQUE: X-RAY - portable upright AP chest x-ray COMPARISON: 01/04/2023 FINDINGS: LINES/DEVICES: None. LUNGS: Stable hyperinflation and coarsening of interstitial markings. No consolidation, vascular congestion or pleural effusion. MEDIASTINUM AND CARDIOVASCULAR STRUCTURES: Stable cardiomegaly. BONES AND SOFT TISSUES: No acute changes. RAD/Chest 1 View (Portable) IMPRESSION: Cardiomegaly without radiographic evidence of acute cardiopulmonary disease. Electronically Signed: Jesse Delgado MD at 17:57 EDT ,
[2023-04-23 17:57] LABS: Absolute Neutrophil Count 3.3 X10^3/uL (2.0-7.7); Basophil# 0.01 X10^3/uL; Basophil% 0.2 % (0-1); Eosinophil# 0.09 X10^3/uL; Eosinophils% 1.8 % (0-5); Hematocrit 32.7 % (37-47); Hemoglobin 10.5 g/dL (12.0-15.0); Lymphocyte % 22.1 % (19-41); Mean Corp Hgb Conc 32.1 g/dL (32-36); Mean Corpuscular Hgb 29.9 pg (27.0-32.0); Mean Corpuscular Volume 93.2 fL (81-99); Mean Platelet Vol. 10.7 fl (6.2-12.0); Monocyte# 0.48 X10^3/uL; Monocyte% 9.7 % (0-10); NRBC Flagged by Analyzer 0 % (0-5); Neutrophil # 3.27 X10^3/uL (2.7-7.7); Neutrophil % 65.8 % (47-70); Platelet Count 203 K/mm3 (150-450); RBC Distribution Width CV 14.3 % (11.6-14.6); Red Blood Count 3.51 M/mm3 (4.2-5.4)
[2023-04-23 18:19] LABS: Anion Gap 5 (5-15); BUN 15 mg/dL (7-18); BUN/Creat Ratio 17.3 RATIO (10-20); Chloride 98 mmol/L (98-107); Creatinine, Serum 0.87 mg/dL (0.55-1.02); EST Glomerular Filtration Rate 66 mL/min (>60); Est Glom Filt Rate - Afr Amer 80 mL/min (>60); Estimated Creatinine Clearance 38.07 ml/min; Glucose 101 mg/dL (74-106); Potassium 3.9 mmol/L (3.5-5.1); Sodium Level 130 mmol/L (136-145); Troponin-I HS (w/2H Reflex) 16 pg/mL (3.0-54.0)
[2023-04-23 19:00] LABS: Magnesium 1.8 mg/dL (1.6-2.6)
[2023-04-23 19:54] LABS: Reflex Troponin-HS? (from REC) Y
--- NOTE | 2023-04-23 19:54 | ECHOD_ITS ---
Reason For Study: NSVT Procedure This was a 2D Doppler, Color Flow transthoracic echocardiogram. Exam performed portable in patient room. Left Ventricle Moderate concentric left ventricular hypertrophy. Normal LV size. The left ventricular ejection fraction is 65 %. Stage 2 diastolic dysfunction. Right Ventricle Normal right ventricle. Atria The left atrium is severely enlarged. The right atrium is moderately enlarged. Mitral Valve Mild-Moderate (1-2+) mitral valve insufficiency. Tricuspid Valve Moderate (2+) tricuspid valve insufficiency. Right ventricular systolic pressure estimated to be 48 mmHg. Aortic Valve Moderate diffuse aortic valve calcification. Mild aortic stenosis. Mild (1+) aortic valve insufficiency. Pulmonic Valve The pulmonic valve is not well visualized. Great Vessels The aortic root is not well visualized. Pericardium/Pleural Trivial pericardial effusion. MMode/2D Measurements & Calculations LVIDd: 4.0 cm IVSd: 1.2 cm LVOT diam: 2.0 cm LVIDs: 3.0 cm LVPWd: 1.5 cm LVOT area: 3.2 cm2 RVDd: 3.5 cm FS: 25.7 % LAV(MOD-bp): 87.9 ml LVAd ap4: 26.1 cm2 SV(MOD-sp4): 52.1 ml LAV(MOD-bp) Indexed: 57.3 ml/m2 LVLd ap4: 6.8 cm LAV(MOD-sp2): 71.3 ml EDV(MOD-sp4): 83.3 ml LAV(MOD-sp4): 109.5 ml EDV(sp4-el): 85.8 ml LVAs ap4: 14.6 cm2 LVLs ap4: 5.5 cm ESV(MOD-sp4): 31.2 ml ESV(sp4-el): 32.8 ml EF(MOD-sp4): 62.5 % EF(sp4-el): 61.7 % SV(sp4-el): 53.0 ml LA A4 area: 29.3 cm2 LA dimension(2D): 5.3 cm RA A4 area: 19.7 cm2 TAPSE: 3.1 cm Time Measurements MV dec time: 0.23 sec Doppler Measurements & Calculations MV E max juan carlos: 64.2 cm/sec MV V2 max: 61.2 cm/sec MV dec slope: 280.8 cm/sec2 MV A max juan carlos: 70.0 cm/sec MV max P.5 mmHg MV E/A: 0.92 MV V2 mean: 41.7 cm/sec MV mean P.78 mmHg MV V2 VTI: 16.4 cm MVA(VTI): 6.0 cm2 Ao V2 max: 239.8 cm/sec AI max juan carlos: 362.9 cm/sec LV V1 max: 139.3 cm/sec Ao max P.1 mmHg AI max P.7 mmHg LV V1 max P.8 mmHg Ao V2 mean: 164.3 cm/sec AI dec slope: 113.9 cm/sec2 LV V1 mean P.0 mmHg Ao mean P.7 mmHg AI P1/2t: 932.8 msec LV V1 mean: 91.1 cm/sec Ao V2 VTI: 54.4 cm LV V1 VTI: 30.5 cm AV (velocity ratio): 0.56 AGUSTIN(I,D): 1.8 cm2 AUGSTIN(V,D): 1.9 cm2 MR max juan carlos: 539.5 cm/sec SV(LVOT): 98.1 ml PA V2 max: 84.1 cm/sec MR max P.4 mmHg PA V2 mean: 63.0 cm/sec TR max juan carlos: 310.9 cm/sec TR max P.7 mmHg ECHO/Echo Complete Interpretation Summary Moderate concentric left ventricular hypertrophy. The left ventricular ejection fraction is 65 %. Stage 2 diastolic dysfunction. The left atrium is severely enlarged. The right atrium is moderately enlarged. Mild-Moderate (1-2+) mitral valve insufficiency. Moderate (2+) tricuspid valve insufficiency. Moderate diffuse aortic valve calcification. Mild aortic stenosis. Mild (1+) aortic valve insufficiency. Right ventricular systolic pressure estimated to be 48 mmHg. Ordering Physician: Elsa Coleman Referring Physician: ZION MCNAMARA Performed By: Sylvia Jung RCS
--- NOTE | 2023-04-23 19:55 | HP.PCM.HOS_ITS ---
HPI - General General Date of Admission: 04/23/23 Date of Service: 04/23/23 Chief Complaint: Fatigue/Lightheadedness HPI Narrative JENNY MARI, is a 82 F who presented to the emergency department at [facility] with fatigue and lightheadedness. Patient was evaluated at [facility] in [place] in October 2022 with complaints of right upper quadrant pain that radiated to her back and new onset A-fib. She underwent card iac catheterization at that time which demonstrated an EF of 55 to 60% and the left anterior descending coronary artery with moderate calcific diffuse disease at 40 to 50% and tandem focal lesion with 60 to 80% narrowing. She had a chronically occluded did first diagonal with long subtotal proximal and mid vessel segments and SIMON II flow. Staged procedure was recommended and she wanted to come home to have this done. She underwent successful LEOBARDO to the proximal LAD on 01/21/2023 and had been doing well and undergoing cardiac rehab. Today while she was at cardiac rehab she was on one of the exercise machine and and had significant fatigue and while she was there her monitor showed a 10 beat run of nonsustained VT. It terminated spontaneously and the patient had no chest pain with it. Patient reported that her only symptom with that was fatigue and she was exerting herself at the time. At the time of my evaluation she indicated she was feeling fine and back to her baseline. Commercial Credit Analyst was contacted by the emergency department and they recommended admission for observation on telemetry and an echocardiogram. Vital signs on presentation showed temperature of 97.8, blood pressure is 187/83, respiratory rate 18 oxygen saturations were 96% on room air. CBC shows a chronic stable anemia with a hemoglobin of 10.5 but was otherwise unremarkable. Chemistry panel shows mild hyponatremia at 130 but is otherwise unremarkable. Initial troponin was 16. EKG demonstrated normal sinus rhythm without any ST-T wave changes concerning for acute ischemia and normal intervals. Chest x-ray is unremarkable. [facility] Medical History Anemia Arthritis Atherosclerosis of coronary artery of [place] heart without angina pectoris Compression fracture Depression Essential (primary) hypertension Myocarditis Non-ischemic cardiomyopathy Nonrheumatic aortic (valve) stenosis Nonsustained paroxysmal ventricular tachycardia PAF (paroxysmal atrial fibrillation) Premature ventricular beats Right leg DVT Solar elastosis Home Medications levothyroxine 112 mcg tablet 112 mcg PO DAILY PRN 02/17/20 [History Last Taken 04/21/23] escitalopram oxalate 20 mg tablet 20 mg PO DAILY 07/29/21 [History Last Taken 04/23/23] levothyroxine 100 mcg tablet 100 mcg PO .PRUDENCIO MORILLO,SAT Fill as a courtesy until pt returns to [place] #36 tabs 12/15/22 [Rx Last Taken 04/22/23] apixaban 2.5 mg tablet (Eliquis) 2.5 mg PO BID #180 tabs 01/04/23 [Rx Last Taken 04/23/23] atorvastatin 80 mg tablet 80 mg PO QHS #90 tabs 01/04/23 [Rx Last Taken 04/22/23] clopidogrel 75 mg tablet 75 mg PO DAILY #90 tabs 02/26/23 [Rx Last Taken 04/23/23] losartan 50 mg tablet 50 mg PO BID #60 tabs 04/09/23 [Rx Last Taken 04/23/23] carvedilol 25 mg tablet 25 mg PO BID this is a dose increase #180 tabs 04/23/23 [Rx Last Taken 04/23/23] Allergy/AdvReac Type Severity Reaction Status Date / Time imiquimod [From Aldara] Allergy Unknown Verified 03/05/23 20:33 Penicillins [PCN] Allergy Anaphylaxis Verified 03/05/23 20:33 amlodipine AdvReac Intermediate swelling Verified 03/05/23 20:33 in feet and legs ciprofloxacin [From Cipro] AdvReac Other Verified 03/05/23 20:33 furosemide AdvReac low saodium Verified 03/05/23 20:33 hydrochlorothiazide AdvReac hyponatremi Verified 03/05/23 20:33 a magnesium AdvReac Nausea Verified 03/05/23 20:33 prednisone AdvReac Upset Verified 03/05/23 20:33 Stomach Family History Mother Heart disease Father Heart disease Surgical History History of cataract surgery History of coronary artery stent placement (01/21/23) History of hysterectomy History of left heart catheterization (02/19/11) History of right hip replacement Social History household members: none Smoking Status: Former smoker how long ago did patient quit smokin years ago alcohol intake: current alcohol intake frequency: holidays/special occasions only substance use type: does not use caffeine: Yes Type: coffee Number of servings: 1 ROS Constitutional Constitutional: Denies anorexia, change in weight, chills, fatigue, fever(s), malaise, night sweats, weakness or other Eyes Eyes: Denies blurry vision, change in eye color, change in vision, discharge from eye(s), double vision, erythema, eye pain, loss of vision or other ENT HEENT: Denies abnormal hearing, dysphagia, ear pain, epistaxis, headache(s), hearing loss, nasal congestion, nasal discharge, post nasal drip, sinus press ure, sore throat or other Cardiovascular Cardiovascular: Denies chest pain, claudication, dyspnea on exertion, edema, lightheadedness, orthopnea, palpitations, paroxysmal nocturnal dyspnea, rapid heart rate, syncope or other Respiratory/Chest Respiratory/Chest: Denies cough, dyspnea, excessive phlegm production, hemoptysis, productive cough, shortness of breath at rest, shortness of breath with exertion, wheezing or other Gastrointestinal Gastrointestinal: Denies abdominal pain, coffee ground emesis, constipation, diarrhea, dyspepsia, hematemesis, hematochezia, loose stools, melena, nausea, vomiting or other Genitourinary Genitourinary: Denies burning urination, difficulty urinating, dysuria, he maturia, nocturia, urinary frequency, urinary hesitancy, urinary incontinence, urinary urgency or other Musculoskeletal Musculoskeletal: Denies arthralgias, back pain, joint pain, joint stiffness, joint swelling, myalgias, neck pain or other Neurologic Neurologic: Denies abnormal gait, abnormal speech, confusion, disequilibrium, dizziness, focal weakness, headache(s), numbness, paresthesias, seizure-like activity, seizures, syncope, tingling, tremor(s) or other Psychiatric Psychiatric: Denies anxiety, depression, homicidal ideation, suicidal ideation or other Endocrine Endocrinology: Denies change in body appearance, cold intolerance, excessive sweating, heat intolerance, polydipsia, polyuria or other Hematologic/Lymphatic Hematologic/Lymphatic: Denies anemia, easy bleeding, easy bruising, lymphadenopathy or other Allergic/Immunologic Allergic/Immunologic: Denies rhinitis, hives, eczemia, asthma or other Vital Signs Vital Signs Vital Signs: 04/23/23 14:55 04/23/23 16:31 04/23/23 16:55 Temperature 97.8 F Temperature Source Temporal Pulse Rate 74 Respiratory Rate 18 Respiratory Effort Normal Non-Labored Respiratory Pattern Normal Blood Pressure 187/83 H 207/85 H Blood Pressure Mean 117 125 Pulse Ox 96 Oxygen Delivery Method Room Air 04/23/23 17:39 Temperature Temperature Source Pulse Rate Respiratory Rate Respiratory Effort Respiratory Pattern Blood Pressure Blood Pressure Mean Pulse Ox Oxygen Delivery Method Room Air Weight Weight: 56.5 kg Body Mass Index (BMI) 22.8 Physical Exam Const alert, oriented x3, no apparent distress, average body habitus, healthy appearing and well nourished Constitutional Narrative: Very pleasant, elderly, white female, sitting up in bed, appears comfortable and nontoxic, friend at bedside General Appearance: cooperative HEENT normocephalic, head/scalp atraumatic, hearing grossly normal bilaterally and moist oral mucous membranes HEENT Narrative: Dentition is good for age, Mallampati is 1, no thrush Resp normal respiratory effort, no retractions, no use of accessory muscles and clear to auscultation bilaterally Auscultation: Negative for crackles, rales, rhonchi or wheezes Cardio regular rate, regular rhythm, S1 normal heart sound, S2 normal heart sound, no murmurs, no rub, no gallops and no clicks Cardio Narrative: Ectopy noted during exam however was only 1 beat GI normal to inspection, nondistended, normoactive bowel sounds, soft to palpation and non-tender Extremity no clubbing, cyanosis or edema Extremity Narrative: Pedal pulse is are 2+ Neuro oriented x3, CN's II-XII intact bilaterally, moves all extremities and no focal motor deficits Speech: speech normal Psych affect normal Psych Narrative: Very pleasant, eye contact is good Results Lab / Micro Data 04/23/23 17:40 04/23/23 17:40 Labs: Laboratory Results - last 24 hr 04/23/23 17:40: WBC 5.0, RBC 3.51 L, Hgb 10.5 L, Hct 32.7 L, MCV 93.2, MCH 29.9, MCHC 32.1, RDW Std Deviation 48.0 H, RDW Coeff of [place] 14.3, Plt Count 203, MPV 10.7, Immature Gran % (Auto) 0.400, Neut % (Auto) 65.8, Lymph % (Auto) 22.1, [place] % (Auto) 9.7, Eos % (Auto) 1.8, Baso % (Auto) 0.2, Absolute Neuts (auto) 3.3, Absolute Lymphs (auto) 1.10, Nucleated RBC % 0, Sodium 130 L, Potassium 3.9, Chloride 98, Carbon Dioxide 27.0, Anion Gap 5, BUN 15, Creatinine 0.87, Estim Creat Clear Calc 38.07, Est GFR (MDRD) Af Amer 80, Est GFR (MDRD) Non-Af 66, BUN/Creatinine Ratio 17.3, Glucose 101, Calcium 9.0, Magnesium 1.8, Troponin I High Sens 16 Radiology Impression Chest X-Ray 04/23/23 17:30 IMPRESSION: Cardiomegaly without radiographic evidence of acute cardiopulmonary disease. Electronically Signed: Jesse Delgado MD at 17:57 EDT , Assessment & Plan Assessment/Plan (1) Ventricular tachycardia: PLAN: Plan Nonsustained ventricular tachycardia -10 beat run during cardiac rehab today -Check echocardiogram -Check TSH -Monitor on telemetry -Continue home beta-zurdo -Consultation to cardiology for recommendations Chronic hyponatremia -Patient appears to have stable hyponatremia -Is on SSRI however patient is asymptomatic and will continue at this time -Check TSH CAD/HPL/HTN -Recent LEOBARDO to proximal LAD in December 2022 -Continue Plavix -Not on aspirin due to being on apixaban -Continue carvedilol -Continue losartan History of paroxysmal atrial fibrillation -Continue apixaban -Continue carvedilol -Currently normal sinus rhythm Hypothyroidism -Check TSH -Continue home levothyroxine History of DVT -Continue apixaban Depression -Continue escitalopram DVT prophylaxis -Continue apixaban CODE STATUS -DNR CCA with no intubation Charges/Coding Visit Charges Inpatient E&M: 75814 Init Hosp L2
[2023-04-23 20:46] LABS: Troponin-I HS 20 pg/mL (3.0-54.0)
--- NOTE | 2023-04-23 21:37 | CM.ED ---
SW/CM Assessment SW introduced self and role to patient. Patient lying in bed, alert and oriented. Patient willing to participate in assessment and is able to answer all questions appropriately. Care providers, pharmacy, and demographics verified. Patient wishes to discharge home, denies need for home health at this time. Patient is currently in cardiac rehab and was sent to the ED by cardiac rehab today. Patient denies any other needs currently. Pt reports her friend and her are selling their homes and plan to buy a condo together for better accessibility and less maintenance. SW to follow for additional needs. PCP: Jeremy Specialists: none Pharmacy: [facility] Insurance: [employer] Medicare Prescription Benefit: yes Living Will/HPOA: LNOK: Daughter, Becky Living Arrangements: Pt is living independently in her own home and also travels to [place] in the Winter. Pt reports her best friend comes daily and assists as needed. They plan to buy a condo together to assist eachother. DME/HHC: Patient uses a cane, denies using other DME. Pt is currently in cardiac rehab and has been to [place] in the past. Disposition Plan: Patient to discharge home without needs if able and continue with outpatient rehab services. SW to follow for additional needs. Maeve Eldridge ROLLER BEARING INSPECTOR, OPERATIONS AND MAINTENANCE TECHNICAN
[2023-04-23] MEDS: Atorvastatin Calcium 80 MG Tablet PO (22:21)
[2023-04-23] MEDS: APIXABAN 2.5 MG TABLET (WCH) PO (22:21)
[2023-04-23] MEDS: Losartan Potassium 50 MG Tablet PO (22:21)
[2023-04-23] MEDS: Carvedilol 25 MG Tablet PO (22:21)
[2023-04-23] MEDS: 0.9% Saline Lock 10 ML Syringe IV (22:21)
[2023-04-23] MEDS: Potassium Chloride Oral Tablet 20 MEQ 40 MEQ PO (22:25)
[2023-04-24 00:46] LABS: Troponin-I HS 16 pg/mL (3.0-54.0)
[2023-04-24] MEDS: Levothyroxine 112 MCG Tablet PO (03:14)
[2023-04-24 03:15] VITALS: BP 129/66; PULSE 69; RESP 16; TEMP 36.7; O2SAT 97
[2023-04-24 07:04] LABS: Absolute Lymphocyte Count 1.07 X10^3/uL (0.83-4.51); Basophil# 0.01 X10^3/uL; Basophil% 0.3 % (0-1); Eosinophil# 0.09 X10^3/uL; Eosinophils% 2.5 % (0-5); Hematocrit 30.7 % (37-47); Lymphocyte # 1.07 X10^3/ul (0.83-4.51); Lymphocyte % 29.3 % (19-41); Mean Corp Hgb Conc 32.6 g/dL (32-36); Mean Corpuscular Hgb 30.1 pg (27.0-32.0); Mean Corpuscular Volume 92.5 fL (81-99); Mean Platelet Vol. 10.5 fl (6.2-12.0); Monocyte# 0.46 X10^3/uL; Monocyte% 12.6 % (0-10); NRBC Flagged by Analyzer 0 % (0-5); Neutrophil # 2.01 X10^3/uL (2.7-7.7); Platelet Count 195 K/mm3 (150-450); RBC Distribution Width CV 14.4 % (11.6-14.6); RBC Distribution Width SD 49.1 fl (35.1-43.9); Red Blood Count 3.32 M/mm3 (4.2-5.4); White Blood Count 3.7 K/mm3 (4.4-11.0)
[2023-04-24 08:06] LABS: ALB/GLOB Ratio 0.9 RATIO (0.9-2.4); AST(SGOT) 24 U/L (15-37); Alanine Aminotransfer ALT/SGPT 32 U/L (13-56); Albumin, Serum 3.1 g/dL (3.2-5.0); Alkaline Phosphatase 58 U/L (45-117); Anion Gap 5 (5-15); BUN 15 mg/dL (7-18); BUN/Creat Ratio 18.2 RATIO (10-20); Calcium,Total 8.4 mg/dL (8.5-10.1); Chloride 99 mmol/L (98-107); Creatinine, Serum 0.83 mg/dL (0.55-1.02); EST Glomerular Filtration Rate 70 mL/min (>60); Est Glom Filt Rate - Afr Amer 85 mL/min (>60); Estimated Creatinine Clearance 39.91 ml/min; Globulin 3.5 g/dL (2.2-4.2); Glucose 91 mg/dL (74-106); Magnesium 2.3 mg/dL (1.6-2.6); Phosphorus 3.4 mg/dL (2.5-4.9); Protein, Total 6.6 g/dL (6.4-8.2); Sodium Level 133 mmol/L (136-145); Thyroid Stim Hormone (TSH) 2.28 uIU/mL (0.358-3.74)
--- NOTE | 2023-04-24 09:02 | PN.HOSP_ITS ---
Reason for Visit Reason for Visit: Diagnoses Ventricular tachycardia, unspecified (04/23/23) Objective Data Objective Data Vital Signs: Vital Signs Temp Pulse Resp BP Pulse Ox O2 Del Method 98.1 F 69 16 129/66 H 97 Room Air 04/24/23 03:15 04/24/23 03:15 04/24/23 03:15 04/24/23 03:15 04/24/23 03:15 04/24/23 08:15 Oxygen Delivery Method Room Air Weight: 54.3 kg Body Mass Index (BMI) 21.9 Intake & Output: Intake and Output for Last 24 Hours 04/22/23 04/23/23 04/24/23 23:59 23:59 23:59 Intake Total 104 / 104 Balance 104 / 104 Lab / Micro Data 04/24/23 06:40 04/24/23 06:40 Labs: Laboratory Results - last 24 hr 04/23/23 17:40: WBC 5.0, RBC 3.51 L, Hgb 10.5 L, Hct 32.7 L, MCV 93.2, MCH 29.9, MCHC 32.1, RDW Std Deviation 48.0 H, RDW Coeff of Tonie 14.3, Plt Count 203, MPV 10.7, Immature Gran % (Auto) 0.400, Neut % (Auto) 65.8, Lymph % (Auto) 22.1, [place] % (Auto) 9.7, Eos % (Auto) 1.8, Baso % (Auto) 0.2, Absolute Neuts (auto) 3.3, Absolute Lymphs (auto) 1.10, Nucleated RBC % 0, Sodium 130 L, Potassium 3.9, Chloride 98, Carbon Dioxide 27.0, Anion Gap 5, BUN 15, Creatinine 0.87, Estim Creat Clear Calc 38.07, Est GFR (MDRD) Af Amer 80, Est GFR (MDRD) Non-Af 66, BUN/Creatinine Ratio 17.3, Glucose 101, Calcium 9.0, Magnesium 1.8, Troponin I High Sens 04/23/23 20:20: Troponin I High Sens 04/23/23 23:57: Troponin I High Sens 04/24/23 06:40: WBC 3.7 L, RBC 3.32 L, Hgb 10.0 L, Hct 30.7 L, MCV 92.5, MCH 30.1, MCHC 32.6, RDW Std Deviation 49.1 H, RDW Coeff of Tonie 14.4, Plt Count 195, MPV 10.5, Immature Gran % (Auto) 0.300, Neut % (Auto) 55.0, Lymph % (Auto) 29.3, [place] % (Auto) 12.6 H, Eos % (Auto) 2.5, Baso % (Auto) 0.3, Absolute Neuts (auto) 2.0, Absolute Lymphs (auto) 1.07, Nucleated RBC % 0, Sodium 133 L, Potassium 4.0, Chloride 99, Carbon Dioxide 29.0, Anion Gap 5, BUN 15, Creatinine 0.83, Estim Creat Clear Calc 39.91, Est GFR (MDRD) Af Amer 85, Est GFR (MDRD) Non-Af 70, BUN/Creatinine Ratio 18.2, Glucose 91, Calcium 8.4 L, Phosphorus 3.4, Magnesium 2.3, Total Bilirubin 0.40, AST 24, ALT 32, Alkaline Phosphatase 58, Total Protein 6.6, Albumin 3.1 L, Globulin 3.5, Albumin/Globulin Ratio 0.9, TSH 2.28 Radiography Diagnostic Testing: Radiology Impression Chest X-Ray 04/23/23 17:30 IMPRESSION: Cardiomegaly without radiographic evidence of acute cardiopulmonary disease. Electronically Signed: Jesse Delgado MD at 17:57 EDT Reading Location ID and State: [address] [place] [address] Tel , Service support , Assessment & Plan Assessment/Plan (1) Ventricular tachycardia: PLAN: Plan Nonsustained ventricular tachycardia -10 beat run during cardiac rehab today -Check echocardiogram -Check TSH -Monitor on telemetry -Continue home beta-zurdo -Consultation to cardiology for recommendations -04/24: Chronic hyponatremia -Patient appears to have stable hyponatremia -Is on SSRI however patient is asymptomatic and will continue at this time -Check TSH -04/24: Presently stable with normal TSH, can be followed and worked up on outpatient basis CAD/HPL/HTN -Recent LEOBARDO to proximal LAD in December 2022 -Continue Plavix -Not on aspirin due to being on apixaban -Continue carvedilol -Continue losartan History of paroxysmal atrial fibrillation -Continue apixaban -Continue carvedilol -Currently normal sinus rhythm Hypothyroidism -Check TSH -Continue home levothyroxine History of DVT -Continue apixaban Depression -Continue escitalopram DVT prophylaxis -Continue apixaban CODE STATUS -DNR CCA with no intubation Charges/Coding Visit Charges Inpatient E&M: 06253 Subs Hosp L2
[2023-04-24 09:15] VITALS: BP 160/71; PULSE 65; RESP 16; TEMP 36.6; O2SAT 96
[2023-04-24] MEDS: APIXABAN 2.5 MG TABLET (WCH) PO (09:19)
[2023-04-24] MEDS: Carvedilol 25 MG Tablet PO (09:19)
[2023-04-24] MEDS: Escitalopram Oxalate 20 MG Tablet PO (09:19)
[2023-04-24] MEDS: Losartan Potassium 50 MG Tablet PO (09:19)
[2023-04-24] MEDS: Isosorbide Mononitrate 30 MG Tablet PO (09:19)
[2023-04-24] MEDS: Clopidogrel Bisulfate 75 MG Tablet PO (09:20)
[2023-04-24 10:00] VITALS: O2SAT 95
[2023-04-24] MEDS: Carvedilol 12.5 MG Tablet PO (11:47)
--- NOTE | 2023-04-24 11:48 | PCM.CONS.C ---
Assessment & Plan Assessment/Plan (1) Ventricular tachycardia: PLAN: Nonsustained ventricular tachycardia. Awaiting echocardiogram. Increase carvedilol to 37.5 mg twice daily. If LV function is normal, then recommend Lexiscan stress Myoview as outpatient. (2) Atherosclerosis of coronary artery of [place] heart without angina pectoris: PLAN: History of drug-eluting stents to the RCA and to the LAD. Continue Plavix. On Eliquis. (3) PAF (paroxysmal atrial fibrillation): PLAN: Presently normal sinus rhythm. Continue apixaban. (4) Essential (primary) hypertension: PLAN: Blood pressure above goal. Increase carvedilol to 37.5 mg twice daily. (5) Carotid bruit: PLAN: Soft left carotid bruit. Recommend Doppler ultrasound as outpatient. (6) Aortic stenosis: PLAN: History of mild aortic valve stenosis. Will review echo. HPI Consult Data Date of Consult: 04/24/23 HPI Narrative Reason for Consultation: NSVT HPI Narrative: JENNY MARI, is a 82 F who presents this patient has past medical history significant for NSTEMI in October of this year. This was in postop setting of a cholecystectomy. She was in [facility] at the time. Coronary angiography was performed and she had intervention done to her RCA with drug-eluting stents. Subsequently in December, she has had staged intervention done to her left anterior descending artery. LV systolic function normal. Patient was at the cardiac rehab yesterday when she was noted to have a 10 beat run of nonsustained VT. She was asymptomatic with it. She was sent to the emergency room and admitted for observation. Patient denies any chest pains or shortness of breath either at rest or with exertion. Denies any palpitations. No lightheadedness or dizziness. No syncope or presyncope. [facility] Medical History Anemia Arthritis Atherosclerosis of coronary artery of [place] heart without angina pectoris Compression fracture Depression Essential (primary) hypertension Myocarditis Non-ischemic cardiomyopathy Nonrheumatic aortic (valve) stenosis Nonsustained paroxysmal ventricular tachycardia PAF (paroxysmal atrial fibrillation) Premature ventricular beats Right leg DVT Solar elastosis Home Medications levothyroxine 112 mcg tablet 112 mcg PO DAILY PRN 02/17/20 [History Last Taken 04/21/23] escitalopram oxalate 20 mg tablet 20 mg PO DAILY 07/29/21 [History Last Taken 04/23/23] levothyroxine 100 mcg tablet 100 mcg PO .PRUDENCIO MORILLO,SAT Fill as a courtesy until pt returns to [place] #36 tabs 12/15/22 [Rx Last Taken 04/22/23] apixaban 2.5 mg tablet (Eliquis) 2.5 mg PO BID #180 tabs 01/04/23 [Rx Last Taken 04/23/23] atorvastatin 80 mg tablet 80 mg PO QHS #90 tabs 01/04/23 [Rx Last Taken 04/22/23] clopidogrel 75 mg tablet 75 mg PO DAILY #90 tabs 02/26/23 [Rx Last Taken 04/23/23] losartan 50 mg tablet 50 mg PO BID #60 tabs 04/09/23 [Rx Last Taken 04/23/23] carvedilol 25 mg tablet 25 mg PO BID this is a dose increase #180 tabs 04/23/23 [Rx Last Taken 04/23/23] Allergy/AdvReac Type Severity Reaction Status Date / Time imiquimod [From Aldara] Allergy Unknown Verified 03/05/23 20:33 Penicillins [PCN] Allergy Anaphylaxis Verified 03/05/23 20:33 amlodipine AdvReac Intermediate swelling Verified 03/05/23 20:33 in feet and legs ciprofloxacin [From Cipro] AdvReac Other Verified 03/05/23 20:33 furosemide AdvReac low saodium Verified 03/05/23 20:33 hydrochlorothiazide AdvReac hyponatremi Verified 03/05/23 20:33 a magnesium AdvReac Nausea Verified 03/05/23 20:33 prednisone AdvReac Upset Verified 03/05/23 20:33 Stomach Family History Mother Heart disease Father Heart disease Surgical History History of cataract surgery History of coronary artery stent placement (01/21/23) History of hysterectomy History of left heart catheterization (02/19/11) History of right hip replacement Social History household members: none Smoking Status: Former smoker how long ago did patient quit smokin years ago alcohol intake: current alcohol intake frequency: holidays/special occasions only substance use type: does not use caffeine: Yes Type: coffee Number of servings: 1 Physical Exam Narrative Comfortable. No distress. Heart sounds 1 and 2 are normal. chest clear to auscultation bilaterally. Alert oriented x3. No ankle edema. Soft left carotid bruit is audible. Risk Stratification Risk Stratification Applicable: No Objective Data Vital Signs: Vital Signs Temp Pulse Resp BP Pulse Ox O2 Del Method 97.8 F 65 16 160/71 H 96 Room Air 04/24/23 09:15 04/24/23 09:15 04/24/23 09:15 04/24/23 09:15 04/24/23 09:15 04/24/23 09:15 Oxygen Delivery Method Room Air Weight: 119 lb 11.376 oz Body Mass Index (BMI) 21.9 Intake & Output: Intake and Output for Last 24 Hours 04/22/23 04/23/23 04/24/23 23:59 23:59 23:59 Intake Total 354 / 354 Balance 354 / 354 Lab / Micro Data 04/24/23 06:40 04/24/23 06:40 Labs: Laboratory Results - last 24 hr 04/23/23 17:40: WBC 5.0, RBC 3.51 L, Hgb 10.5 L, Hct 32.7 L, MCV 93.2, MCH 29.9, MCHC 32.1, RDW Std Deviation 48.0 H, RDW Coeff of Tonie 14.3, Plt Count 203, MPV 10.7, Immature Gran % (Auto) 0.400, Neut % (Auto) 65.8, Lymph % (Auto) 22.1, [place] % (Auto) 9.7, Eos % (Auto) 1.8, Baso % (Auto) 0.2, Absolute Neuts (auto) 3.3, Absolute Lymphs (auto) 1.10, Nucleated RBC % 0, Sodium 130 L, Potassium 3.9, Chloride 98, Carbon Dioxide 27.0, Anion Gap 5, BUN 15, Creatinine 0.87, Estim Creat Clear Calc 38.07, Est GFR (MDRD) Af Amer 80, Est GFR (MDRD) Non-Af 66, BUN/Creatinine Ratio 17.3, Glucose 101, Calcium 9.0, Magnesium 1.8, Troponin I High Sens 16 04/23/23 20:20: Troponin I High Sens 20 04/23/23 23:57: Troponin I High Sens 16 04/24/23 06:40: WBC 3.7 L, RBC 3.32 L, Hgb 10.0 L, Hct 30.7 L, MCV 92.5, MCH 30.1, MCHC 32.6, RDW Std Deviation 49.1 H, RDW Coeff of Tonie 14.4, Plt Count 195, MPV 10.5, Immature Gran % (Auto) 0.300, Neut % (Auto) 55.0, Lymph % (Auto) 29.3, [place] % (Auto) 12.6 H, Eos % (Auto) 2.5, Baso % (Auto) 0.3, Absolute Neuts (auto) 2.0, Absolute Lymphs (auto) 1.07, Nucleated RBC % 0, Sodium 133 L, Potassium 4.0, Chloride 99, Carbon Dioxide 29.0, Anion Gap 5, BUN 15, Creatinine 0.83, Estim Creat Clear Calc 39.91, Est GFR (MDRD) Af Amer 85, Est GFR (MDRD) Non-Af 70, BUN/Creatinine Ratio 18.2, Glucose 91, Calcium 8.4 L, Phosphorus 3.4, Magnesium 2.3, Total Bilirubin 0.40, AST 24, ALT 32, Alkaline Phosphatase 58, Total Protein 6.6, Albumin 3.1 L, Globulin 3.5, Albumin/Globulin Ratio 0.9, TSH 2.28 Rhythm Strip Rhythm Strip: Sinus Rhythm Cardiology Labs/Tests 04/23/23 17:40: WBC 5.0, RBC 3.51 L, Hgb 10.5 L, Hct 32.7 L, MCV 93.2, MCH 29.9, MCHC 32.1, Plt Count 203, MPV 10.7, Immature Gran % (Auto) 0.400, Neut % (Auto) 65.8, Lymph % (Auto) 22.1, [place] % (Auto) 9.7, Eos % (Auto) 1.8, Baso % (Auto) 0.2, Absolute Neuts (auto) 3.3, Nucleated RBC % 0, Sodium 130 L, Potassium 3.9, Chloride 98, Carbon Dioxide 27.0, Anion Gap 5, BUN 15, Creatinine 0.87, Est GFR (MDRD) Af Amer 80, Est GFR (MDRD) Non-Af 66, BUN/Creatinine Ratio 17.3, Glucose 101, Calcium 9.0, Magnesium 1.8 04/24/23 06:40: WBC 3.7 L, RBC 3.32 L, Hgb 10.0 L, Hct 30.7 L, MCV 92.5, MCH 30.1, MCHC 32.6, Plt Count 195, MPV 10.5, Immature Gran % (Auto) 0.300, Neut % (Auto) 55.0, Lymph % (Auto) 29.3, [place] % (Auto) 12.6 H, Eos % (Auto) 2.5, Baso % (Auto) 0.3, Absolute Neuts (auto) 2.0, Nucleated RBC % 0, Sodium 133 L, Potassium 4.0, Chloride 99, Carbon Dioxide 29.0, Anion Gap 5, BUN 15, Creatinine 0.83, Est GFR (MDRD) Af Amer 85, Est GFR (MDRD) Non-Af 70, BUN/Creatinine Ratio 18.2, Glucose 91, Calcium 8.4 L, Phosphorus 3.4, Magnesium 2.3, Total Bilirubin 0.40 Rhythm: Rhythm strip from cardiac rehab shows a 10 beat run of nonsustained VT. Normal sinus rhythm here in the hospital. EKG: Sinus rhythm. No ischemic changes. ECHO: Stress Test: Cardiac Cath: PCI: CT Surgery: Holter monitor: EPS: PPM: CXR: Chest CT Scan: Radiography Diagnostic Testing: Radiology Impression Chest X-Ray 04/23/23 17:30 IMPRESSION: Cardiomegaly without radiographic evidence of acute cardiopulmonary disease. Electronically Signed: Jesse Delgado MD at 17:57 EDT ,
[2023-04-24 15:15] VITALS: BP 106/65; PULSE 69; RESP 16; TEMP 36.5; O2SAT 97
--- NOTE | 2023-04-24 15:24 | DCINST_ITS ---
Discharge Instructions Diet Discharge Diet: - (DASH diet) Activity Discharge Activity: Return to Normal Activity Follow Up Care Test Results: Test results from this visit will be discussed in further detail at your follow- up appointment, if applicable. Discharge Plan Admission Admit Date/Time: 04/23/23 19:49 Primary Reason for Your Visit: Fatigue, light headedness Attending Provider: Nimco Braswell Primary Care Provider: Alek Chahal Consulting Providers: Treva Mariee; Elsa Coleman Instructions Patient Instructions: DASH Plan Eat Heart Healthy Food Additional Instructions / Restrictions: DISCHARGE INSTRUCTIONS PLEASE READ *Please take this with you to your next doctors appointment* -Please follow-up with cardiology upon discharge. Please call their office to schedule hospital follow-up appointment upon discharge. -Your Coreg (carvedilol) has been increased to 37.5 mg twice daily -You will need an outpatient left-sided carotid Doppler and an outpatient stress test. These can be coordinated through your cardiology or primary care ph ysician office, please inquire about scheduling at your hospital follow-up appointment -Please call your primary care provider's office upon discharge to schedule a hospital follow up within 1 week. -For any concerning signs or symptoms please call 911 or proceed to the nearest emergency department Discharge Orders/Prescriptions Prescriptions: Continued escitalopram oxalate 20 mg tablet 20 mg PO DAILY atorvastatin 80 mg tablet 80 mg PO QHS Qty: 90 3RF Eliquis 2.5 mg tablet 2.5 mg PO BID Qty: 180 3RF levothyroxine 112 MCG tablet 112 mcg PO DAILY PRN Rx Instructions: TAKES EVERY Wednesday & WEDNESDAY levothyroxine 100 mcg tablet 100 mcg PO .,,WED Qty: 36 0RF clopidogrel 75 mg tablet 75 mg PO DAILY Qty: 90 3RF losartan 50 mg tablet 50 mg PO BID Qty: 60 11RF Changed carvedilol 25 mg tablet 37.5 mg PO BID 30 Days Qty: 90 0RF Rx Instructions: must administer with a meal/food Referrals / Follow Up: Alek Chahal MD [Primary Care Provider] - Within 1 Week Treva Mariee MD [Med Staff - Active Staff] - Within 1 Month ( -Please follow-up with cardiology upon discharge. Please call their office to schedule hospital follow-up appointment upon discharge.) Disposition Disposition (needs filled in before D/C Order can be placed): Home, Self Care
--- NOTE | 2023-04-24 15:30 | PCM.DC.SUM ---
Providers Date of Admission: 04/23/23 Date of Discharge: 04/24/23 Primary Care Physician: Dr. Zion Chahal MD Consultations 04/23/23 21:03 Consult: Cardiology Routine Consulting Provider: Treva Mariee Reason for Consult: NSVT EMERGENT Consult: No Notified: Yes Date Notified: 04/24/23 Time Notified: 06:52 Method of Notification: Text Reason For Visit: NSVT Diagnosis Discharge Diagnosis (1) Ventricular tachycardia: Status: Acute Code(s): I47.20 - Ventricular tachycardia, unspecified (2) Atherosclerosis of coronary artery of [place] heart without angina pectoris: Status: Acute Code(s): I25.10 - Atherosclerotic heart disease of [place] coronary artery without angina pectoris (3) PAF (paroxysmal atrial fibrillation): Status: Acute Code(s): I48.0 - Paroxysmal atrial fibrillation (4) Essential (primary) hypertension: Status: Chronic Code(s): I10 - Essential (primary) hypertension (5) Carotid bruit: Status: Acute Code(s): R09.89 - Other specified symptoms and signs involving the circulatory and respiratory systems (6) Aortic stenosis: Status: Acute Code(s): I35.0 - Nonrheumatic aortic (valve) stenosis Plan #Nonsustained ventricular tachycardia resolved #Chronic hyponatremia #CAD LEOBARDO to LAD 01/19/2023 /HPL/HTN #History of paroxysmal atrial fibrillation #Hypothyroidism #History of DVT #Depression #Stage II diastolic dysfunction Medications at Discharge Home Medications levothyroxine 112 mcg tablet 112 mcg PO DAILY PRN 02/17/20 escitalopram oxalate 20 mg tablet 20 mg PO DAILY 07/29/21 levothyroxine 100 mcg tablet 100 mcg PO .PRUDENCIO MORILLO SAT Fill as a courtesy until pt returns to [place] #36 tabs 12/15/22 apixaban 2.5 mg tablet (Eliquis) 2.5 mg PO BID #180 tabs 01/04/23 atorvastatin 80 mg tablet 80 mg PO QHS #90 tabs 01/04/23 clopidogrel 75 mg tablet 75 mg PO DAILY #90 tabs 02/26/23 losartan 50 mg tablet 50 mg PO BID #60 tabs 04/09/23 carvedilol 25 mg tablet 37.5 mg (1.5 x 25 mg) PO BID this is a dose increase 30 days #90 tabs 04/24/23 Hospital Course Procedures 2-D Echocardiogram Summary of Care Provided Minutes Spent on Discharge: 33 Hospital Course: 82-year-old female history of coronary artery disease with stenting with LEOBARDO to the proximal LAD 01/21/2023, hypertension, right leg DVT who presented to [facility] 04/23/2023 as she was at cardiac rehab on one of the exercise machines and felt fatigued and lightheaded and was noted to have a 10 beat run of nonsustained V. tach on her monitor. It terminated spontaneously and she had no chest pain so she was sent to the ED. Cardiology consulted and patient placed on telemetry. EKG without any ST changes concerning for acute ischemia. Echocardiogram obtained which showed EF of 65% with stage II diastolic dysfunction, 2+ tricuspid valve insufficiency, RVSP 48 mmHg. Cardiology evaluated and recommended increasing carvedilol to 37.5 twice daily and then if patient tolerated that she could be DC'd home with outpatient follow-up. They recommended Michelle scan and left carotid duplex on outpatient basis. Patient did tolerate the medication and had no further symptoms, discharged home in stable condition with the following instructions: -Please follow-up with cardiology upon discharge. Please call their office to schedule hospital follow-up appointment upon discharge. -Your Coreg (carvedilol) has been increased to 37.5 mg twice daily -You will need an outpatient left-sided carotid Doppler and an outpatient stress test. These can be coordinated through your cardiology or primary care physician office, please inquire about scheduling at your hospital follow-up appointment -Please call your primary care provider's office upon discharge to schedule a hospital follow up within 1 week. -For any concerning signs or symptoms please call 911 or proceed to the nearest emergency department Physical Exam Narrative General: Alert, oriented, no apparent distress HEENT: Atraumatic, normocephalic Eyes: Anicteric, normal conjunctiva, extraocular movements grossly intact Neck: Supple Respiratory: Clear to auscultation bilaterally, normal respiratory effort Cardiovascular: Regular rate GI: Soft, nontender, nondistended Extremities: No edema Musculoskeletal: Moving all extremities Neuro: No overt focal neurological deficits Skin: No rashes appreciated Psych: Cooperative Weight / BMI Weight Weight: 54.3 kg Body Mass Index (BMI) 21.9 ABG / Lab / Microbiology Data 04/24/23 06:40 04/24/23 06:40 Laboratory: Laboratory Results - last 24 hr 04/23/23 17:40: WBC 5.0, RBC 3.51 L, Hgb 10.5 L, Hct 32.7 L, MCV 93.2, MCH 29.9, MCHC 32.1, RDW Std Deviation 48.0 H, RDW Coeff of Toine 14.3, Plt Count 203, MPV 10.7, Immature Gran % (Auto) 0.400, Neut % (Auto) 65.8, Lymph % (Auto) 22.1, Tucker % (Auto) 9.7, Eos % (Auto) 1.8, Baso % (Auto) 0.2, Absolute Neuts (auto) 3.3, Absolute Lymphs (auto) 1.10, Nucleated RBC % 0, Sodium 130 L, Potassium 3.9, Chloride 98, Carbon Dioxide 27.0, Anion Gap 5, BUN 15, Creatinine 0.87, Estim Creat Clear Calc 38.07, Est GFR (MDRD) Af Amer 80, Est GFR (MDRD) Non-Af 66, BUN/Creatinine Ratio 17.3, Glucose 101, Calcium 9.0, Magnesium 1.8, Troponin I High Sens 16 04/23/23 20:20: Troponin I High Sens 20 04/23/23 23:57: Troponin I High Sens 16 04/24/23 06:40: WBC 3.7 L, RBC 3.32 L, Hgb 10.0 L, Hct 30.7 L, MCV 92.5, MCH 30.1, MCHC 32.6, RDW Std Deviation 49.1 H, RDW Coeff of Tonie 14.4, Plt Count 195, MPV 10.5, Immature Gran % (Auto) 0.300, Neut % (Auto) 55.0, Lymph % (Auto) 29.3, Tucker % (Auto) 12.6 H, Eos % (Auto) 2.5, Baso % (Auto) 0.3, Absolute Neuts (auto) 2.0, Absolute Lymphs (auto) 1.07, Nucleated RBC % 0, Sodium 133 L, Potassium 4.0, Chloride 99, Carbon Dioxide 29.0, Anion Gap 5, BUN 15, Creatinine 0.83, Estim Creat Clear Calc 39.91, Est GFR (MDRD) Af Amer 85, Est GFR (MDRD) Non-Af 70, BUN/Creatinine Ratio 18.2, Glucose 91, Calcium 8.4 L, Phosphorus 3.4, Magnesium 2.3, Total Bilirubin 0.40, AST 24, ALT 32, Alkaline Phosphatase 58, Total Protein 6.6, Albumin 3.1 L, Globulin 3.5, Albumin/Globulin Ratio 0.9, TSH 2.28 Radiography Diagnostic Testing: Radiology Impression Chest X-Ray 04/23/23 17:30 IMPRESSION: Cardiomegaly without radiographic evidence of acute cardiopulmonary disease. Electronically Signed: Jesse Delgado MD at 17:57 EDT , Echocardiogram 04/23/23 19:54 Interpretation Summary Moderate concentric left ventricular hypertrophy. The left ventricular ejection fraction is 65 %. Stage 2 diastolic dysfunction. The left atrium is severely enlarged. The right atrium is moderately enlarged. Mild-Moderate (1-2+) mitral valve insufficiency. Moderate (2+) tricuspid valve insufficiency. Moderate diffuse aortic valve calcification. Mild aortic stenosis. Mild (1+) aortic valve insufficiency. Right ventricular systolic pressure estimated to be 48 mmHg. Ordering Physician: Elsa Coleman Referring Physician: ZION CHAHAL Performed By: Sylvia Jung RCS D/C Instructions Discharge Diet: - (DASH diet) Meaningful Use Info Meaningful Use Diagnoses (Choose all that apply): None applicable Discharge Plan Admission Admit Date/Time: 04/23/23 19:49 Primary Reason for Your Visit: Fatigue, light headedness Attending Provider: Nimco Braswell Primary Care Provider: Zion Chahal Consulting Providers: Treva Mariee; Elsa Coleman Instructions Patient Instructions: DASH Plan Eat Heart Healthy Food Additional Instructions / Restrictions: DISCHARGE INSTRUCTIONS PLEASE READ *Please take this with you to your next doctors appointment* -Please follow-up with cardiology upon discharge. Please call their office to schedule hospital follow-up appointment upon discharge. -Your Coreg (carvedilol) has been increased to 37.5 mg twice daily -You will need an outpatient left-sided carotid Doppler and an outpatient stress test. These can be coordinated through your cardiology or primary care physician office, please inquire about scheduling at your hospital follow-up appointment -Please call your primary care provider's office upon discharge to schedule a hospital follow up within 1 week. -For any concerning signs or symptoms please call 911 or proceed to the nearest emergency department Discharge Orders/Prescriptions Prescriptions: Continued escitalopram oxalate 20 mg tablet 20 mg PO DAILY atorvastatin 80 mg tablet 80 mg PO QHS Qty: 90 3RF Eliquis 2.5 mg tablet 2.5 mg PO BID Qty: 180 3RF levothyroxine 112 MCG tablet 112 mcg PO DAILY PRN Rx Instructions: TAKES EVERY Wednesday & WEDNESDAY levothyroxine 100 mcg tablet 100 mcg PO .,,WED Qty: 36 0RF clopidogrel 75 mg tablet 75 mg PO DAILY Qty: 90 3RF losartan 50 mg tablet 50 mg PO BID Qty: 60 11RF Changed carvedilol 25 mg tablet 37.5 mg PO BID 30 Days Qty: 90 0RF Rx Instructions: must administer with a meal/food Referrals / Follow Up: Treva Mariee MD [Med Staff - Active Staff] - Within 1 Month ( -Please follow-up with cardiology upon discharge. Please call their office to schedule hospital follow-up appointment upon discharge.) Zion Chahal MD [Primary Care Provider] - Within 1 Week Disposition Disposition (needs filled in before D/C Order can be placed): Home, Self Care Charges/Coding Visit Charges Inpatient E&M: 70657 Disch Hosp >30min
== END 2023-04-24 16:09 | disposition home or self-care (01) ==
LOC: ED 19:53 → PCU 04-24 01:53
PROVIDERS: Admitting Provider Internal Medicine; Emergency Provider Emergency Medicine; PCP Family Medicine; Visit Provider Internal Medicine
DX: I47.20 Ventricular tachycardia, unspecified (principal); I42.8 Other cardiomyopathies; I48.0 Paroxysmal atrial fibrillation; I10 Essential (primary) hypertension; I25.10 Atherosclerotic heart disease of native coronary artery without angina pectoris; R09.89 Other specified symptoms and signs involving the circulatory and respiratory systems; Z79.01 Long term (current) use of anticoagulants; Z79.02 Long term (current) use of antithrombotics/antiplatelets; Z87.891 Personal history of nicotine dependence; E87.1 Hypo-osmolality and hyponatremia; Z79.899 Other long term (current) drug therapy; Z79.890 Hormone replacement therapy; I25.2 Old myocardial infarction; Z95.5 Presence of coronary angioplasty implant and graft; M19.90 Unspecified osteoarthritis, unspecified site; Z86.718 Personal history of other venous thrombosis and embolism; Z79.82 Long term (current) use of aspirin; R53.83 Other fatigue; E03.9 Hypothyroidism, unspecified; I08.3 Combined rheumatic disorders of mitral, aortic and tricuspid valves; F32.A Depression, unspecified
CPT/HCPCS: 36415; 71045; 80048; 80053; 83735; 84100; 84443; 84484; 85025; 93005; 93306; 94668; 97802; 99221; 99252; 99284; A4216; G0378; G0463

== ENCOUNTER 2023-04-26 14:15 | Outpatient (RCR) | payer MEDICARE, SELFPAY ==
[2023-03-30 00:39] VITALS: BP 150/72
--- NOTE | 2023-04-07 11:48 | CR.ITP_ITS ---
Nutrition - Initial Assessment Weight Mgt (Other Care) Height: 5 ft 2 in Weight:: 127 lb 8 oz BMI: 23.3 Psychosocial - Initial Assess Target Goals Target Goals Patient Health Questionnaire PHQ-9 Screening 60-Day Re-eval Assessment: 1. Little interest or pleasure in doing things: More than half the days 2. Feeling down, depressed, or hopeless: Not at all 3. Trouble falling or staying asleep, or sleeping too much: Not at all 4. Feeling tired or having little energy: Nearly every day 5. Poor appetite or overeating: Not at all 6. Feeling bad about yourself -- or that you are a failure or have let yourself or your family down: Not at all 7. Trouble concentrating on things, such as reading the newspaper or watching television: Not at all 8. Moving or speaking so slowly that other people could have noticed. Or the opposite - being so fidgety or restless that you have been moving around a lot more than usual: Not at all How difficult have these problems made it for you to do your work, take care of things at home, or get along with other people?: Somewhat difficult Total Score: 5 Self-Efficacy 6-Item Scale 60-Day Re-eval Assessment: We would like to know how confident you are in doing certain activities. Please select your confidence level for: Fatigue Select Number: 4 Physical Discomfort or Pain Select Number: 4 Emotional Distress Select Number: 8 Other Symptoms or Health Problems Select Number: 8 Different Tasks and Activities Select Number: 2 Medication Select Number: 10 Total Score:: 6 Nutrition Survey Nutrition Survey Instructions Scoring Instructions Exercise - 60-day Assessment Visit Date of Eval: 04/07/23 Session #:: 24 Physician Prescribed Exercise Modalities: NuStep, SciFit and Lateral Shellacker Frequency: 3x/week for 12 weeks [36 sessions] Intensity: 60-80% of age predicted maximum heart rate reserve Duration: 30 - 45 minutes Current METSs:: 4 Target Heart Rate:: 88-102 Current RPE:: 12-13 Maximum Excercise HR:: 102 Resting Blood Pressure: 168/78 Maximum Exercise Blood Pressure: 168/74 EKG Type: NSR to ST with 1st degree AVB w/ rare to occas PAC, rare PVC, Rare ectopic Outcomes & Goals Goals:: Verbalizes understanding of THR, RPE & goal METS by session 6, Documents in home exercise log/reports 30 min aerobic 5 day/wk by DC, Demonstrates accurate pulse taking by DC and Other additional outcome/goals: see below Intervention & Plan Exercise Program Goals: Instruct on personal THR & RPE, Instruct on MET level & personal MET goal, Show patient to take own pulse /validate performance until accurate, Instruct on home exercise and Other additional plan/int 30-day Reassessments 30 day Reassessments:: Progressing Reassessment Notes & Comments:: pulse taking demonstrated Physical Activity Home Exercise Physical Activity - Home Exercise: Safe Exercise, Warm-up, Self-monitoring, Cool-Down, Home Exercise > 30 min Daily and Sitting Time <3 hours/daily Outcomes & Goals Outcomes/Goals: Demonstrates correct Warm-up/exercise Cool-Down (S3) if = 2.5 METs, Verbalizes symptoms of exercise intolerance by Session 3 (S3), Demonstrate safe equipment use (S3) & follows exercise prescrition (6) and Other: See below Intervention & Plan Plan/Intervention: Instruct warm-up & cool-down if exercising at > 2 METs, Instruct on symptoms of exercise intolerance & actions to take, Instruct & monitor on saf, Assess intial functional capacity & safety risk and Other See below 30-day Reassessments 30 day Reassessments:: Progressing Reassessment Notes & Comments:: cool down encouraged Nutrition - 30-Day Assessment Weight Mgt (Other Care) Height: 5 ft 2 in Weight:: 127 lb 8 oz BMI: 23.3 Nutrition - 60-Day Assessment Program Goals Nutrition Program Goals Patient has diagnosis of Hyperlipidemia (ICD E78)?: Yes Visit Date of Eval: 04/07/23 Session #:: 24 Cholesterol/Lipids (Other Core Measures) Determine presence & major risk factors that modify LDL goal: Hypertension or hypertensive medication, Low HDL cholesterol <40 mg/dL*, Family history of premature CHD in Male < 55 years: female <65 yearsFa and Age men > 45 years; women >/= 55 years Outcomes/Goals: Pt IDs own risk factors & lifestyle modifications by Session 10, Verbalizes symptoms of angina & response by session 3., Pt independently manages and Other Additional Outcomes/Goals: Intervention/Plan: Advocate for lipid panel cholesterol medication if applicable, Instruct on personal lipid levels & lipid goals/NCEP guidelines, Instruct on cholesterol and Other additional plan/int Referral to dietitian:: Yes 30-day Reassessments:: Progressing Reassessment Notes & Comments:: risk factors explained Diabetes (Other Core Measures) Diabetes Type: Not Applicable Weight Mgt (Other Care) Height: 5 ft 2 in Weight:: 127 lb 8 oz BMI: 23.3 Diagnosis Overweight/Obesity BMI> 30% ICD-10 E66: No Diagnosis High BMI/Morbid Obesity BMI> 35% ICD-10 Z68: No Outcomes/Goals: Pt sets, maintains & shows weight loss goal & trend during rehab and Other additional outcomes/goals Intervention/Plan: Instruct on ideal BMI & set weight loss goal w/patient, Assist pt to ID & incorporate diet changes for weight loss by S9, Refer to Structured Weight Loss program as appropriate, Encourage goal of using 250- 300dcal per session for weight loss and Other additional plan/interventions 30 day Reassessments:: Met Healthy Eating Habits Will attend diet classes:: Yes Outcomes/Goals:: Consume diet rich in vegs,fruits,whole grain/high fiber,fish,lean meat, Limit sat/trans fats,cholesterol & added salts & sugars and Other additional outcome/goals: Intervention/Plan:: Assess current eating habits and Other Additional plan/interventions 30-day Reassessments:: Progressing Reassessment Notes & Comments:: pt to attend nutrition class Education Gave educational materials for:: Signs & symptoms of hypoglycemia, Signs & symptoms of hyperglycemia, Relate diabetes to coronary artery disease and Healthy eating Core - 60-Day Assessment Visit Date of Eval: 04/07/23 Session #:: 24 Medication Compliance Preventative Medication(s):: Aspirin, Clopidogrel/P2Y12 inhibit, Statin/lipid and Eliquis Doesn?t believe in the benefits of treatment?: No Believes medications are unnecessary or harmful?: No Has a concern about medication side effects?: No Expresses concern over the cost of medications?: No Outcomes/Goals: Verbalizes medications,desired effect & common side effects @ DC, Pt self-reports following medication regimen, Keeps card in wallet w/medications listed by DC and Other additional outcome/goals: Interventions/plans: Instruct on medication effects & side effects, Review medication list w/patient every two weeks, Instruct importance of taking meds as ordered & assist problem solving and Other additional Tobacco Use Tobacco Use: Non-smoker Hypertension Hypertension Diagnosis:: Hypertension ICD-10 I10 Resting Blood Pressure:: 166/72 [place] [employer] Hypertension Guidelines Peak Exercise Blood Pressure:: 180/72 Outcomes/Goals: Able to verbalize/achieve optimal blood pressure <130/80, Incorporates diet changes & exercise for blood pressure control by DC and Other additional outcomes/goals Interventions/plan: Instruct on optimal blood pressure, hypertension & medications, Instruct on effects of sodium, alcohol, stress, exercise &hypertension and Other additional plan/interventions 30 day Reassessments:: Progressing Reassessment Notes & Comments:: pt encouraged to take meds Tobacco Cessation Referral Smoking Cessation Referral:: No Individual Education/Counseling:: No Education Schedule Given:: Yes Psychosocial - 30-Day Assess Target Goals Target Goals Psychosocial - 60-Day Assess VIsit Date of Eval: 04/07/23 Session #:: 24 History of previous Mental disease:: Yes History of Emotional Disorders: Depression Target Goals Target Goals Psychosocial - 90-Day Assess Target Goals Target Goals Psychosocial - Final Assessmen Target Goals Target Goals Nutrition - 90-Day Assessment Weight Mgt (Other Care) Height: 5 ft 2 in Weight:: 127 lb 8 oz BMI: 23.3 Nutrition - Final Assessment Weight Mgt (Other Care) Height: 5 ft 2 in Weight:: 127 lb 8 oz BMI: 23.3
[2023-04-07 11:53] VITALS: BP 168/78
[2023-04-07 12:55] VITALS: BP 166/72; BMI 23.3
== END 2023-04-29 23:59 ==
LOC: CR 14:15
PROVIDERS: PCP Family Medicine; Visit Provider Internal Medicine Cardiovascular Disease
DX: I25.10 Atherosclerotic heart disease of native coronary artery without angina pectoris (principal); Z95.5 Presence of coronary angioplasty implant and graft
CPT/HCPCS: 93798

== ENCOUNTER 2023-05-10 14:30 | Outpatient (RCR) | payer MEDICARE, SELFPAY ==
[2023-04-07 12:55] VITALS: BMI 23.3
[2023-04-30 00:38] VITALS: BP 150/72; BP 166/72; BP 168/78
--- NOTE | 2023-05-07 08:23 | CR.ITP_ITS ---
Nutrition - Initial Assessment Weight Mgt (Other Care) Height: 5 ft 2 in Weight:: 126 lb BMI: 23.0 Psychosocial - Initial Assess Target Goals Target Goals Patient Health Questionnaire PHQ-9 Screening 90-Day Re-eval Assessment: 1. Little interest or pleasure in doing things: More than half the days 2. Feeling down, depressed, or hopeless: Not at all 3. Trouble falling or staying asleep, or sleeping too much: Not at all 4. Feeling tired or having little energy: Nearly every day 5. Poor appetite or overeating: Not at all 6. Feeling bad about yourself -- or that you are a failure or have let yourself or your family down: Several days 7. Trouble concentrating on things, such as reading the newspaper or watching television: Not at all 8. Moving or speaking so slowly that other people could have noticed. Or the opposite - being so fidgety or restless that you have been moving around a lot more than usual: Not at all 9. Thoughts that you would be better off , or of hurting yourself in some way: Not at all How difficult have these problems made it for you to do your work, take care of things at home, or get along with other people?: Somewhat difficult Total Score: 6 Self-Efficacy 6-Item Scale 90-Day Re-eval Assessment: We would like to know how confident you are in doing certain activities. Please select your confidence level for: Fatigue Select Number: 4 Physical Discomfort or Pain Select Number: 4 Emotional Distress Select Number: 8 Other Symptoms or Health Problems Select Number: 8 Different Tasks and Activities Select Number: 2 Medication Select Number: 10 Total Score:: 6 Nutrition Survey Nutrition Survey Instructions Scoring Instructions Exercise - 90-day Assessment Visit Date of Eval: 05/07/23 Session #:: 35 Physician Prescribed Exercise Modalities: NuStep, SciFit and Lateral Sexual Abuse Counsellor Frequency: 3x/week for 12 weeks [36 sessions] Intensity: 60-80% of age predicted maximum heart rate reserve Duration: 30 - 45 minutes Current METSs:: 4.5 Target Heart Rate:: 88-102 Current RPE:: 11-14 Maximum Excercise HR:: 101 Resting Blood Pressure: 170/60 Maximum Exercise Blood Pressure: 170/78 EKG Type: SB to STw/1st degree AVB/wandering atrial pacer w/rare to occas PAC,rare PV Outcomes & Goals Goals:: Verbalizes understanding of THR, RPE & goal METS by session 6, Documents in home exercise log/reports 30 min aerobic 5 day/wk by DC, Demonstrates accurate pulse taking by DC and Other additional outcome/goals: see below Intervention & Plan Exercise Program Goals: Instruct on personal THR & RPE, Instruct on MET level & personal MET goal, Show patient to take own pulse /validate performance until accurate, Instruct on home exercise and Other additional plan/int 30-day Reassessments 30 day Reassessments:: Met Physical Activity Home Exercise Physical Activity - Home Exercise: Safe Exercise, Warm-up, Self-monitoring, Cool-Down, Home Exercise > 30 min Daily and Sitting Time <3 hours/daily Outcomes & Goals Outcomes/Goals: Demonstrates correct Warm-up/exercise Cool-Down (S3) if = 2.5 METs, Verbalizes symptoms of exercise intolerance by Session 3 (S3), Demonstrate safe equipment use (S3) & follows exercise prescrition (6) and Other: See below Intervention & Plan Plan/Intervention: Instruct warm-up & cool-down if exercising at > 2 METs, Instruct on symptoms of exercise intolerance & actions to take, Instruct & monitor on saf, Assess intial functional capacity & safety risk and Other See below 30-day Reassessments 30 day Reassessments:: Met Nutrition - 30-Day Assessment Weight Mgt (Other Care) Height: 5 ft 2 in Weight:: 126 lb BMI: 23.0 Nutrition - 60-Day Assessment Weight Mgt (Other Care) Height: 5 ft 2 in Weight:: 126 lb BMI: 23.0 Core - 90 Day Assessment Visit Date of Eval: 05/07/23 Session #:: 35 Medication Compliance Preventative Medication(s):: Aspirin, Clopidogrel/P2Y12 inhibit, Statin/lipid and Eliquis H/O mental health issues: depression, anxiety, or addiction?: No Doesn?t believe in the benefits of treatment?: No Believes medications are unnecessary or harmful?: No Has a concern about medication side effects?: No Expresses concern over the cost of medications?: No Outcomes/Goals: Verbalizes medications,desired effect & common side effects @ DC, Pt self-reports following medication regimen, Keeps card in wallet w/medications listed by DC and Other additional outcome/goals: Interventions/plans: Instruct on medication effects & side effects, Review medication list w/patient every two weeks, Instruct importance of taking meds as ordered & assist problem solving and Other additional 30-day Reassessments:: Met Tobacco Use Tobacco Use: Non-smoker Hypertension Hypertension Diagnosis:: Hypertension ICD-10 I10 Resting Blood Pressure:: 170/60 [place] [employer] Hypertension Guidelines Peak Exercise Blood Pressure:: 170/78 Outcomes/Goals: Able to verbalize/achieve optimal blood pressure <130/80, Incorporates diet changes & exercise for blood pressure control by DC and Other additional outcomes/goals Interventions/plan: Instruct on optimal blood pressure, hypertension & medications, Instruct on effects of sodium, alcohol, stress, exercise &hypertension and Other additional plan/interventions 30 day Reassessments:: Progressing Tobacco Cessation Referral Smoking Cessation Referral:: No Individual Education/Counseling:: No Education Schedule Given:: Yes Psychosocial - 30-Day Assess Target Goals Target Goals Psychosocial - 60-Day Assess Target Goals Target Goals Psychosocial - 90-Day Assess VIsit Date of Eval: 05/07/23 Session #:: 35 History of previous Mental disease:: Yes History of Emotional Disorders: Depression (pt is doing well) Target Goals Target Goals Outcomes/Goals: See list Psychosocial Outcomes/Goals:: ID's personal stressors & 2 strategies to manage stress by discharge and Other Additional outcome/goals: Intervention/Plan: See List Interventions/Plan:: Assess stressors,coping strategies & signs of derpression on admission, Instruct/assist pt to develop coping & personal stress Mgt strategies, Refer to Behavioral Health if appropriate, Refer to Physician if appropriate, Instruct patient to recognize signs & symptoms of depression, Instruct patient to recog and Other additional plan/intervention 30-day Reassessments: 30 day Reassessments:: Met Psychosocial - Final Assessmen Target Goals Target Goals Nutrition - 90-Day Assessment Visit Date of Eval: 05/07/23 Session #:: 35 Cholesterol/Lipids (Other Core Measures) Determine presence & major risk factors that modify LDL goal: Hypertension or hypertensive medication, Low HDL cholesterol <40 mg/dL*, Family history of premature CHD in Male < 55 years: female <65 yearsFa and Age men > 45 years; women >/= 55 years Outcomes/Goals: Pt IDs own risk factors & lifestyle modifications by Session 10, Verbalizes symptoms of angina & response by session 3., Pt independently manages and Other Additional Outcomes/Goals: Intervention/Plan: Advocate for lipid panel cholesterol medication if appl icable, Instruct on personal lipid levels & lipid goals/NCEP guidelines, Instruct on cholesterol and Other additional plan/int 30-day Reassessments:: Met Diabetes (Other Core Measures) Diabetes Type: Not Applicable Weight Mgt (Other Care) Height: 5 ft 2 in Weight:: 126 lb BMI: 23.0 Diagnosis Overweight/Obesity BMI> 30% ICD-10 E66: No Diagnosis High BMI/Morbid Obesity BMI> 35% ICD-10 Z68: No Outcomes/Goals: Pt sets, maintains & shows weight loss goal & trend during rehab and Other additional outcomes/goals Intervention/Plan: Instruct on ideal BMI & set weight loss goal w/patient, Assist pt to ID & incorporate diet changes for weight loss by S9, Refer to Structured Weight Loss program as appropriate, Encourage goal of using 250- 300dcal per session for weight loss and Other additional plan/interventions 30 day Reassessments:: Met Healthy Eating Habits Will attend diet classes:: Yes Outcomes/Goals:: Consume diet rich in vegs,fruits,whole grain/high fiber,fish,lean meat, Limit sat/trans fats,cholesterol & added salts & sugars and Other additional outcome/goals: Intervention/Plan:: Assess current eating habits and Other Additional plan/interventions 30-day Reassessments:: Met Education Gave educational materials for:: Signs & symptoms of hypoglycemia, Signs & symptoms of hyperglycemia, Relate diabetes to coronary artery disease and Healthy eating Nutrition - Final Assessment Weight Mgt (Other Care) Height: 5 ft 2 in Weight:: 126 lb BMI: 23.0
[2023-05-07 08:30] VITALS: BP 170/60
[2023-05-07 08:38] VITALS: BP 170/60; BMI 23.0
== END 2023-05-29 23:59 ==
LOC: CR 14:30
PROVIDERS: PCP Family Medicine; Visit Provider Internal Medicine Cardiovascular Disease
DX: Z95.5 Presence of coronary angioplasty implant and graft (principal)
CPT/HCPCS: 93798

== ENCOUNTER → 2023-06-17 | Outpatient (CLI) | payer MEDICARE, SELFPAY ==
[2023-05-07 08:38] VITALS: BMI 23.0
--- NOTE | 2023-06-17 06:55 | CDU_ITS ---
Reason For Study: left carotid bruit Rt. Velocities/BP Lt. Velocities/BP Prox CCA 34.3/7.8 cm/sec. Prox CCA 63.0/11.4 cm/sec. Mid CCA 48.5/8.8 cm/sec. Mid CCA 51.9/11.4 cm/sec. Dist CCA 43.7/8.8 cm/sec. Dist CCA 49.5/11.4 cm/sec. Prox ICA 65.5/15.4 cm/sec. Prox ICA 56.9/15.1 cm/sec. Mid ICA 177.7/40.7 cm/sec. Mid ICA 51.9/13.9 cm/sec. Dist ICA 87.6/21.2 cm/sec. Dist ICA 65.4/21.2 cm/sec. Rt. ICA/CCA = 3.7. Lt. ICA/CCA = 1.3. Prox ECA 60.7/7.8 cm/sec. Prox ECA 44.6 cm/sec. Rt. Vert. 55.6/12.6 cm/sec. Lt. Vert. 48.3/9.0 cm/sec. Right Extracranial There is homogeneous, irregular atherosclerotic plaque noted in the right common carotid artery. There is heterogeneous, irregular atherosclerotic plaque noted in the right internal carotid artery. There is heterogeneous, irregular atherosclerotic plaque noted in the right external carotid artery. Antegrade flow is noted in the right vertebral artery. Left Extracranial There is homogeneous, smooth atherosclerotic plaque noted in the left common carotid artery. There is heterogeneous, irregular atherosclerotic plaque noted in the left internal carotid artery. There is heterogeneous, irregular atherosclerotic plaque noted in the left external carotid artery. Antegrade flow is noted in the left vertebral artery. Procedure Carotid Duplex [id number]. This is a Carotid Duplex examination using B-mode, color flow and specral Doppler. The exam was diagnostic. Exam performed in department. VL/Carotid Duplex Ultrasound Interpretation Summary Moderate (50-69%) stenosis right extracranial internal carotid. Mild (<50%) stenosis left extracranial internal carotid. Patent and antegrade vertebrals bilaterally. Limited study due to calcific shadowing, alternative imaging may be beneficial Ordering Physician: Sydney Delong Performed By: Cullen Pride RVT
--- NOTE | 2023-06-18 07:23 | STRESSREP ---
Stress Test Report Pharmacologic myocardial perfusion stress test. 82-year-old lady with a history of coronary disease Resting EKG demonstrates sinus rhythm with a rate of 68 bpm. Resting blood pressure is 144/70 mmHg. 0.4 mg of regadenoson was infused per usual protocol followed by rapid intravenous saline flush injection. Continuous EKG monitoring was performed. The maximum heart rate was 103 bpm which was 75% of max impacted heart rate the maximum workload was 1 metabolic equivalent. At rest there were no ST or T wave changes noted to suggest ischemia and at peak infusion nonspecific ST changes were noted which did not meet the criteria for ischemia. No clinical angina is noted. The final blood pressure was 178/88 mmHg. Myocardial perfusion protocol. 11.2 mCi of technetium 99m sestamibi was injected at rest. 0.4 mg of regadenoson was infused per usual protocol. At peak infusion 33 point mCi of technetium 99m sestamibi was injected stress images were obtained stress and rest images were reconstructed and compared in the short axis vertical long and horizontal long axis. Gated images were also obtained. Perfusion SPECT analysis: Review of the stress images demonstrate normal uptake of tracer noted in all areas of the myocardium. The resting images similar demonstrated normal uptake of tracer noted in all areas of the myocardium. No areas of reversibility are noted to suggest ischemia and no previous infarct is noted. Gated SPECT analysis: The gated ejection fraction is 69%. Conclusion: Normal pharmacologic myocardial perfusion stress test. Preserved ejection fraction.
== END | disposition home or self-care (01) ==
LOC: CVS 06:54
PROVIDERS: PCP Family Medicine; Referring Provider Nurse Practitioner Gerontology; Visit Provider Nurse Practitioner Gerontology
DX: R09.89 Other specified symptoms and signs involving the circulatory and respiratory systems (principal); I47.29 Other ventricular tachycardia; Z95.5 Presence of coronary angioplasty implant and graft; I25.10 Atherosclerotic heart disease of native coronary artery without angina pectoris; I47.10 Supraventricular tachycardia, unspecified
CPT/HCPCS: 78452; 93017; 93880; A9500; A4216; J2785

== ENCOUNTER → 2024-01-12 | Outpatient (CLI) | payer MEDICARE, SELFPAY ==
[2023-05-07 08:38] VITALS: BMI 23.0
[2024-01-12 16:39] LABS: Anion Gap 4 (5-15); BUN 16 mg/dL (7-18); BUN/Creat Ratio 16.1 RATIO (10-20); Calcium,Total 9.2 mg/dL (8.5-10.1); Chloride 103 mmol/L (98-107); Creatinine, Serum 0.99 mg/dL (0.55-1.02); EST Glomerular Filtration Rate 57 mL/min (>60); Est Glom Filt Rate - Afr Amer 69 mL/min (>60); Glucose 88 mg/dL (74-106); Potassium 4.3 mmol/L (3.5-5.1); Sodium Level 137 mmol/L (136-145)
== END | disposition home or self-care (01) ==
LOC: LAB 15:56
PROVIDERS: PCP Family Medicine; Referring Provider Nurse Practitioner Gerontology; Visit Provider Nurse Practitioner Gerontology
DX: E87.1 Hypo-osmolality and hyponatremia (principal)
CPT/HCPCS: 36415; 80048

== ENCOUNTER → 2024-02-10 | Outpatient (CLI) | payer MEDICARE, SELFPAY ==
[2023-05-07 08:38] VITALS: BMI 23.0
--- NOTE | 2024-02-10 15:13 | BI_ITS ---
MAMMOGRAPHY - BILATERAL SCREENING REASON FOR EXAM: Female, 83 years old. Routine annual screening examination. PERTINENT HISTORY: Non-contributory. TECHNIQUE: Digital bilateral breast saurabh (3D mammographic acquisition) in the CC and MLO projections. 2-D mediolateral oblique (MLO) and craniocaudad (CC) views of both breasts were obtained. CAD: Full Field Digital Mammography with Computer Added Detection was performed. COMPARISON: Comparison is made with prior study July 15, 2022 and January 02, 2020. FINDINGS: Breast Composition: The breasts are heterogeneously dense, which may obscure small masses. There are no dominant masses or suspicious calcifications. Stable bilateral secretory calcifications. No other significant abnormalities are identified. There has been no significant change since the prior study. BI/SCRN MAMM (CAD)W/SAURABH BILAT IMPRESSION: Stable bilateral screening mammogram. Yearly follow-up mammogram recommended. (A) ASSESSMENT CATEGORY: BIRADS Category 2: Benign. A letter regarding these results will be sent to the patient by the facility within 30 days. Approximately 10% of breast cancers are not detected by mammography. A normal mammogram should not delay biopsy of a clinically suspicious abnormality. [id number] Electronically Signed: Troy Limon MD at 8:44 EDT ,
== END | disposition home or self-care (01) ==
LOC: OPBI 15:11
PROVIDERS: PCP Family Medicine; Referring Provider Family Medicine; Visit Provider Family Medicine
DX: Z12.31 Encounter for screening mammogram for malignant neoplasm of breast (principal)
CPT/HCPCS: 77063; 77067

== ENCOUNTER 2024-02-11 22:08 | Inpatient (IN) | payer MEDICARE, SELFPAY ==
[2023-05-07 08:38] VITALS: BMI 23.0
[2024-02-11 22:09] VITALS: BP 135/100; PULSE 145; RESP 20; TEMP 36.1; O2SAT 97; BMI 24.0
--- NOTE | 2024-02-11 22:33 | EKG12_ITS ---
Test Reason : PALPITATIONS Blood Pressure : / mmHG Vent. Rate : 146 BPM Atrial Rate : 000 BPM P-R Int : 000 ms QRS Dur : 088 ms QT Int : 314 ms P-R-T Axes : 000 -12 110 degrees QTc Int : 489 ms Critical Test Result: High HR Atrial fibrillation with rapid ventricular response Nonspecific ST and T wave abnormality Abnormal ECG Confirmed by AMY CAVAZOS, ED ([id number]), technical editor SHILPI CEJA ([id number]) on 02/14/2024 9:46:52 AM Referred By: Rell Ortega Confirmed By:GRETA REYES MD
--- NOTE | 2024-02-11 22:34 | EX.ED.DYSGE1 ---
HPI History of Present Illness Chief Complaint: Palpitations Informant: patient Onset/Context/Timing Onset: Today Narrative Narrative: Patient presents secondary to palpitations. She has a history of paroxysmal A-fib and was hospitalized in [place] in September of this year for it. She states after 2 days on medication it did not convert and she was shocked back to a sinus rhythm. Tonight she felt a heart racing sensation in her throat and believes she is back in A-fib. She denies chest pain. She does not feel short of breath. She is on Eliquis and is typically on carvedilol for rate control. [facility] Medical History SVT (supraventricular tachycardia) Anemia Acute hyponatremia Atherosclerosis of coronary artery of [place] heart without angina pectoris PAF (paroxysmal atrial fibrillation) Nonrheumatic aortic (valve) stenosis Compression fracture Essential (primary) hypertension Premature ventricular beats Myocarditis Solar elastosis Arthritis Depression Right leg DVT Nonsustained paroxysmal ventricular tachycardia Non-ischemic cardiomyopathy Home Medications ?Medication ?Instructions ?Recorded ?Last Taken ?Type levothyroxine 112 mcg tablet 112 mcg PO DAILY PRN 02/17/20 04/21/23 History escitalopram oxalate 20 mg tablet 20 mg PO DAILY 07/29/21 04/23/23 History levothyroxine 100 mcg tablet 100 mcg PO .PRUDENCIO MORILLO,UMESH Fill as a 12/15/22 04/22/23 Rx courtesy until pt returns to [place] #36 tabs clopidogrel 75 mg tablet 75 mg PO DAILY #90 tabs 05/18/23 Unknown Rx atorvastatin 80 mg tablet See Rx Instructions .Route 10/14/23 Unknown Rx .COMPLEX #90 tabs apixaban 2.5 mg tablet (Eliquis) See Rx Instructions .Route 11/01/23 Unknown Rx .COMPLEX #180 tabs furosemide 20 mg tablet 20 mg PO DAILY #90 tabs 11/29/23 Unknown Rx potassium chloride 10 mEq 10 meq PO DAILY #90 tabs 11/29/23 Unknown Rx tablet,extended release sacubitril 24 mg-valsartan 26 mg 1 tab PO BID #180 tabs 11/29/23 Unknown Rx tablet (Entresto) carvedilol 12.5 mg tablet 12.5 mg PO .COMPLEX #180 tabs 02/09/24 Unknown Rx carvedilol 25 mg tablet 25 mg PO .COMPLEX waiting on mail 02/09/24 Unknown Rx in RX #180 tabs Allergy/AdvReac Type Severity Reaction Status Date / Time imiquimod (From Aldara) Allergy Unknown Verified 02/11/24 22:11 Penicillins (PCN) Allergy Anaphylaxis Verified 02/11/24 22:11 amlodipine AdvReac Intermediate swelling Verified 02/11/24 22:11 in feet and legs dapagliflozin (From Farxiga) AdvReac Intermediate Lightheaded Verified 02/11/24 22:11 and faint ciprofloxacin (From Cipro) AdvReac Other Verified 02/11/24 22:11 furosemide AdvReac low saodium Verified 02/11/24 22:11 hydrochlorothiazide AdvReac hyponatremi Verified 02/11/24 22:11 a magnesium AdvReac Nausea Verified 02/11/24 22:11 prednisone AdvReac Upset Verified 02/11/24 22:11 Stomach Family History Mother Heart disease Father Heart disease Surgical History History of coronary artery stent placement (01/21/23) History of cataract surgery History of right hip replacement History of hysterectomy History of left heart catheterization (02/19/11) Social History household members: none Smoking Status: Former smoker how long ago did patient quit smokin years ago alcohol intake: current alcohol intake frequency: holidays/special occasions only substance use type: does not use caffeine: Yes Type: coffee Number of servings: 1 ROS ROS ED Constitutional Constitutional ED: Denies chills or fever(s) Eyes Eyes: Denies discharge from eye(s) ENT ENT ED: Denies discharge from eye(s), rhinorrhea or sore throat Cardiovascular Cardiovascular: Reports palpitations and racing heartbeat; Denies chest pain Respiratory/Chest Respiratory/Chest: Denies cough or dyspnea Gastrointestinal Gastrointestinal: Denies abdominal pain, nausea or vomiting Genitourinary Genitourinary ED: Denies dysuria Musculoskeletal Musculoskeletal: Denies back pain or extremity pain Integumentary Denies Abrasions or rash Neurologic Neurologic: Denies headache(s) or weakness Psychiatric Psychiatric: Denies anxiety or depression Allergic/Immunologic Allergic/Immunologic ED: Denies lip swelling or urticaria EXAM Physical Exam Const Vital Signs: 02/11/24 22:09 02/11/24 22:25 02/11/24 23:04 Temperature 97 F L 98.8 F Temperature Source Temporal Temporal Pulse Rate 145 H 121 H Respiratory Rate 20 H 20 H Respiratory Effort Normal Blood Pressure 135/100 H 125/71 H Blood Pressure Mean 111 89 Pulse Ox 97 94 Oxygen Delivery Method Room Air Room Air Positive well nourished and well developed General Appearance ED: well developed HEENT Reports moist mucous membranes Eyes EOMs intact bilaterally Chest Wall inspection of chest normal and palpation of chest normal Resp normal respiratory effort and clear to auscultation bilaterally Cardio Rate: tachycardic Rhythm: abnormal rhythm irregularly irregular GI non-tender Palpation: soft Extremity normal to inspection Neuro oriented x3 and no sensory deficits noted Motor Exam: strength 5/5 throughout Psych mental status grossly normal Skin no rashes or lesions noted MDM MDM MDM Narrative Medical decision making narrative: Patient placed on shank rander. IV line initiated. EKG obtained to evaluate for cardiac arrhythmia/ischemia. Chest x-ray obtained to evaluate for acute lung pathology, cardiac size, or mediastinal abnormality. Labwork obtained to evaluate for leukocytosis, anemia, and electrolyte derangement. EKG does reveal A-fib RVR with a ventricular rate of 146. Approximately [address] depression noted in V5 and V6. Patient be given a dose of Cardizem for rate control. History & Record Review Discussion w/independent historian: Patient Additional record(s) reviewed:: Prior outpatient record Lab Data Attestation: I reviewed the patient's lab results. Labs: Laboratory Results - last 24 hr 02/11/24 22:30 WBC 5.3 RBC 3.57 L Hgb 11.2 L Hct 34.5 L MCV 96.6 MCH 31.4 MCHC 32.5 RDW Std Deviation 50.5 H RDW Coeff of Tonie 14.3 Plt Count 203 MPV 11.8 Immature Gran % (Auto) 0.600 Neut % (Auto) 53.4 Lymph % (Auto) 34.8 [place] % (Auto) 8.2 Eos % (Auto) 2.6 Baso % (Auto) 0.4 Absolute Neuts (auto) 2.9 Absolute Lymphs (auto) 1.86 Nucleated RBC % 0 PT 16.9 H INR 1.4 APTT 32.0 Sodium 139 Potassium 3.9 Chloride 103 Carbon Dioxide 25.0 Anion Gap 11 BUN 20 H Creatinine 1.00 Estim Creat Clear Calc 32.53 Est GFR (MDRD) Af Amer 68 Est GFR (MDRD) Non-Af 56 L BUN/Creatinine Ratio 20.0 Glucose 109 H Calcium 9.2 Troponin I High Sens 18 TSH 2.84 Radiography Chest X-Ray - ED: 1 View, Read by ED Physician, Chronic Changes and No Infiltrates Diagnostic Testing: Clinical Impression(s) from Imaging Studies Chest X-Ray 02/11/24 22:55 IMPRESSION: No acute pulmonary finding. Electronically Signed: Ranjit Dickinson MD at 23:30 EDT , EKG Initial EKG: Attestation: I personally reviewed and interpreted this EKG as follows: Interpretation: Atrial Fibrillation (A-fib RVR with ventricular rate of 146. Lateral ST depression approximately 1 mm noted.) Treatment and Re-Evaluation :: CBC was normal white count 5.3 with a hemoglobin 11.2. INR is 1.4. Chemistry studies reveal a BUN of 20 with a creatinine of 1.0. Potassium is normal at 3.9. Troponin is normal at 18 and TSH is normal at 2.84. Chest x-ray per my interpretation reveals chronic changes with no focal infiltrate. After 10 mg of IV Cardizem, patient's heart rate went from the 140s to low 120s. She was given another 20 mg of IV Cardizem. Heart rate had been down to around 100 but is now starting to climb into the 120s again. She will have periods where it appears she is trying to convert back to a sinus rhythm. Patient's blood pressure has dropped and is currently in the 80s systolic. She has IV fluids running. She is not symptomatic with this. I will speak with hospitalist regarding admission. Patient may require amiodarone or digoxin for rate control. She is known to local cardiology practice. Discharge Plan Triage Chief Complaint: Palpitations ED Provider: Patrica Mendoza Dx/Rx/DC Orders Clinical Impression: Atrial fibrillation with rapid ventricular response Prescriptions: No Action escitalopram oxalate 20 mg tablet 20 mg PO DAILY levothyroxine 112 MCG tablet 112 mcg PO DAILY PRN Rx Instructions: TAKES EVERY Wednesday & WEDNESDAY levothyroxine 100 mcg tablet 100 mcg PO .,,WED Qty: 36 0RF clopidogrel 75 mg tablet 75 mg PO DAILY Qty: 90 3RF atorvastatin 80 mg tablet See Rx Instructions .ROUTE .COMPLEX Qty: 90 3RF Dose Instruction: TAKE 1 TABLET AT BEDTIME Rx Instructions: TAKE 1 TABLET AT BEDTIME Eliquis 2.5 mg tablet See Rx Instructions .ROUTE .COMPLEX Qty: 180 3RF Dose Instruction: TAKE 1 TABLET TWICE DAILY Rx Instructions: TAKE 1 TABLET TWICE DAILY Entresto 24-26 mg tablet 1 tab PO BID Qty: 180 3RF potassium chloride 10 mEq tablet extended release 10 meq PO DAILY Qty: 90 3RF furosemide 20 mg tablet 20 mg PO DAILY Qty: 90 3RF carvedilol 25 mg tablet 25 mg PO .COMPLEX Qty: 180 3RF Rx Instructions: 25 mg orally Take a 25 mg tablet with a 12.5 mg tablet TWICE DAILY to = 37.5 TWICE A DAY; must administer with a meal/food carvedilol 12.5 mg tablet 12.5 mg PO .COMPLEX Qty: 180 3RF Rx Instructions: 12.5 mg orally Take with a 25 mg to = 37.5 mg TWICE a day; dose increased in hospital.; must administer with a meal/food Primary Care Provider: Alek Chahal Referrals: Alek Chahal MD [Primary Care Provider] - Print Language: Greek Disposition Disposition: Acute Care Hospital [facility]
[2024-02-11] MEDS: dilTIAZem 25 MG/5 ML Vial 10 MG IV BOLUS (22:44)
[2024-02-11 22:48] LABS: Absolute Lymphocyte Count 1.86 X10^3/uL (0.83-4.51); Absolute Neutrophil Count 2.9 X10^3/uL (2.0-7.7); Basophil# 0.02 X10^3/uL; Basophil% 0.4 % (0-1); Eosinophil# 0.14 X10^3/uL; Eosinophils% 2.6 % (0-5); Hematocrit 34.5 % (37-47); Hemoglobin 11.2 g/dL (12.0-15.0); Lymphocyte # 1.86 X10^3/ul (0.83-4.51); Lymphocyte % 34.8 % (19-41); Mean Corp Hgb Conc 32.5 g/dL (32-36); Mean Corpuscular Hgb 31.4 pg (27.0-32.0); Mean Corpuscular Volume 96.6 fL (81-99); Mean Platelet Vol. 11.8 fl (6.2-12.0); Monocyte# 0.44 X10^3/uL; Monocyte% 8.2 % (0-10); NRBC Flagged by Analyzer 0 % (0-5); Neutrophil # 2.85 X10^3/uL (2.7-7.7); Neutrophil % 53.4 % (47-70); Platelet Count 203 K/mm3 (150-450); RBC Distribution Width CV 14.3 % (11.6-14.6); RBC Distribution Width SD 50.5 fl (35.1-43.9); Red Blood Count 3.57 M/mm3 (4.2-5.4); White Blood Count 5.3 K/mm3 (4.4-11.0)
--- NOTE | 2024-02-11 22:55 | RAD_ITS ---
INDICATION: cp EXAMINATION/TECHNIQUE: X-RAY - XR Chest 1 View COMPARISON: Prior study dated: 04/23/2023 FINDINGS: LINES/DEVICES: Cardiac leads overlie the chest. LUNGS: The lungs are well expanded. No consolidation, edema or effusion. No pneumothorax. MEDIASTINUM AND CARDIOVASCULAR STRUCTURES: Cardiac silhouette is unchanged. Central airways and mediastinal contour are unremarkable. BONES AND SOFT TISSUES: No acute abnormality. RAD/Chest 1 View (Portable) IMPRESSION: No acute pulmonary finding. Electronically Signed: Ranjit Dickinson MD at 23:30 EDT ,
[2024-02-11 22:57] LABS: International Normalized Ratio 1.4; Prothrombin Time (Protime)PT. 16.9 SECONDS (11.7-14.9)
[2024-02-11 23:04] VITALS: BP 125/71; PULSE 121; RESP 20; TEMP 37.1; O2SAT 94
[2024-02-11] MEDS: dilTIAZem 25 MG/5 ML Vial 20 MG IV BOLUS (23:08)
[2024-02-11] MEDS: 0.9% Normal Saline (1000mL) 1,000 ML 150 ML IV (23:08)
[2024-02-11 23:23] LABS: Anion Gap 11 (5-15); BUN 20 mg/dL (7-18); Calcium,Total 9.2 mg/dL (8.5-10.1); Chloride 103 mmol/L (98-107); EST Glomerular Filtration Rate 56 mL/min (>60); Est Glom Filt Rate - Afr Amer 68 mL/min (>60); Estimated Creatinine Clearance 32.53 ml/min; Glucose 109 mg/dL (74-106); Potassium 3.9 mmol/L (3.5-5.1); Sodium Level 139 mmol/L (136-145); Thyroid Stim Hormone (TSH) 2.84 uIU/mL (0.358-3.74); Troponin-I HS (w/2H Reflex) 18 pg/mL (3.0-54.0)
[2024-02-12] VITALS (8 sets, daily range): BP systolic 90–148; BP diastolic 57–86; PULSE 64–128; RESP 18; TEMP 36.6–36.7; O2SAT 94–98; BMI 24.0
--- NOTE | 2024-02-12 00:17 | PCM.HP.STD ---
HPI - General General Date of Admission: 02/12/24 Date of Service: 02/12/24 Chief Complaint: Recurrent A-fib with RVR HPI Narrative JENNY MARI, is a 83 F who presented to [facility] ED on 02/12/2024 with recurrent A-fib with RVR. Saw patient at bedside on the floor shortly after arriving over from the ED. Patient was sitting up comfortably in bed, conversing normally, in no acute distress. Patient has a history of paroxysmal A-fib, nonsustained VT, CAD with stenting, hypertension and aortic valve stenosis and follows with [facility]. Patient spends about half the year in [place] and also follows with cardiology in [place]. In October 2022, she presented to the hospital in [place] with right upper quadrant pain and new onset A-fib with RVR. She had a left heart cath done at that time with diffuse coronary disease noted and had LEOBARDO x 1 placed to the mid to proximal RCA. She converted back to normal sinus rhythm during that hospitalization with rate control. Patient then had staged PCI to the LAD done in [place] in December 2022 with good result. Had an echo done on 04/23/2023 that showed EF 65%, stage II diastolic dysfunction, moderate concentric LV hypertrophy, severely enlarged LA, moderately enlarged RA, moderate diffuse aortic valve calcification with mild aortic stenosis. Patient was doing well until September of this year when she went into the hospital with chest discomfort. She was found to have recurrent A-fib with RVR. Echo at that time showed EF 40 to 45%, no regional wall motion abnormalities and reported severe aortic stenosis. She had a RAND done that showed no intracardiac thrombi, and per cardiology recommendations she had a cardioversion done there with return to normal sinus rhythm. Since then, she has been taking Coreg 37.5 twice daily and has not had any recurrence of A-fib that she was aware of. However, she began to have upper chest discomfort yesterday evening and was concerned that she was back in A-fib with RVR, so she came to the hospital for further evaluation. On arrival to the ED she was noted to be in A-fib with RVR with heart rate to the 140s. She was started on a Cardizem drip with rate improvement to the 110s to 120s but she did not convert back to normal sinus rhythm, so hospitalist was contacted for admission. On my encounter, patient appeared to have converted back to normal sinus rhythm. Her heart rate was regular on exam and the cottrell operator showed apparent normal sinus rhythm with rate in 70s. Cardizem drip has been turned off when I saw the patient. Patient was mildly hypotensive to the 90s over 60s on arrival, improved with mild fluid bolus and improved rate control. Vitals were otherwise unremarkable. CBC and BMP were unremarkable. Troponin trended up from 18 > 70, third troponin pending. Chest x-ray was nonacute. [facility] Medical History SVT (supraventricular tachycardia) Anemia Acute hyponatremia Atherosclerosis of coronary artery of [place] heart without angina pectoris PAF (paroxysmal atrial fibrillation) Nonrheumatic aortic (valve) stenosis Compression fracture Essential (primary) hypertension Premature ventricular beats Myocarditis Solar elastosis Arthritis Depression Right leg DVT Nonsustained paroxysmal ventricular tachycardia Non-ischemic cardiomyopathy Home Medications ?Medication ?Instructions ?Recorded ?Last Taken ?Type levothyroxine 112 mcg tablet 112 mcg PO DAILY PRN hypothroidism 02/17/20 04/21/23 History escitalopram oxalate 20 mg tablet 20 mg PO DAILY anxiety 07/29/21 04/23/23 History levothyroxine 100 mcg tablet 100 mcg PO .PRUDENCIO MORILLO,SAT Fill as a 12/15/22 04/22/23 Rx courtesy until pt returns to [place] #36 tabs atorvastatin 80 mg tablet See Rx Instructions .Route 10/14/23 Unknown Rx .COMPLEX #90 tabs apixaban 2.5 mg tablet (Eliquis) See Rx Instructions .Route 11/01/23 Unknown Rx .COMPLEX #180 tabs potassium chloride 10 mEq 10 meq PO DAILY #90 tabs 11/29/23 Unknown Rx tablet,extended release sacubitril 24 mg-valsartan 26 mg 1 tab PO BID #180 tabs 11/29/23 Unknown Rx tablet (Entresto) carvedilol 12.5 mg tablet 12.5 mg PO .COMPLEX #180 tabs 02/09/24 Unknown Rx carvedilol 25 mg tablet 25 mg PO .COMPLEX waiting on mail 02/09/24 Unknown Rx in RX #180 tabs aspirin 81 mg chewable tablet 1 tab PO DAILY blood thinner 02/12/24 Unknown History ([place] Chewable Low Dose Aspirin) Allergy/AdvReac Type Severity Reaction Status Date / Time imiquimod (From Aldara) Allergy Unknown Verified 02/11/24 22:11 Penicillins (PCN) Allergy Anaphylaxis Verified 02/11/24 22:11 amlodipine AdvReac Intermediate swelling Verified 02/11/24 22:11 in feet and legs dapagliflozin (From Farxiga) AdvReac Intermediate Lightheaded Verified 02/11/24 22:11 and faint ciprofloxacin (From Cipro) AdvReac Other Verified 02/11/24 22:11 furosemide AdvReac low saodium Verified 02/11/24 22:11 hydrochlorothiazide AdvReac hyponatremi Verified 02/11/24 22:11 a magnesium AdvReac Nausea Verified 02/11/24 22:11 prednisone AdvReac Upset Verified 02/11/24 22:11 Stomach Family History Mother Heart disease Father Heart disease Surgical History History of coronary artery stent placement (01/21/23) History of cataract surgery History of right hip replacement History of hysterectomy History of left heart catheterization (02/19/11) Social History household members: none Smoking Status: Former smoker how long ago did patient quit smokin years ago alcohol intake: current alcohol intake frequency: holidays/special occasions only substance use type: does not use caffeine: Yes Type: coffee Number of servings: 1 ROS Constitutional Constitutional: Denies chills, fatigue, fever(s) or weakness Eyes Eyes: Denies change in vision Cardiovascular Cardiovascular: Denies chest pain, dyspnea on exertion, edema, lightheadedness, palpitations, rapid heart rate or syncope Respiratory/Chest Respiratory/Chest: Denies cough, shortness of breath at rest or wheezing Gastrointestinal Gastrointestinal: Denies abdominal pain Musculoskeletal Musculoskeletal: Denies arthralgias or myalgias Neurologic Neurologic: Denies dizziness, focal weakness or headache(s) Vital Signs Vital Signs Vital Signs: 02/11/24 22:09 02/11/24 22:25 02/11/24 23:04 Temperature 97 F L 98.8 F Temperature Source Temporal Temporal Pulse Rate 145 H 121 H Respiratory Rate 20 H 20 H Respiratory Effort Normal Blood Pressure 135/100 H 125/71 H Blood Pressure Mean 111 89 Pulse Ox 97 94 Oxygen Delivery Method Room Air Room Air Weight Weight: 59.8 kg Body Mass Index (BMI) 24.0 Physical Exam Const alert, oriented x3, no apparent distress and average body habitus Constitutional Narrative: Pleasant elderly female, sitting up comfortably in bed, conversing normally, in no acute distress. General Appearance: cooperative and comfortable HEENT normocephalic, head/scalp atraumatic, hearing grossly normal bilaterally, nasal mucous membranes and turbinates normal and moist oral mucous membranes Eyes PERRL, EOMs intact bilaterally and conjunctivae normal Neck full ROM Chest inspection of chest normal Resp normal respiratory effort, normal air movement, no use of accessory muscles and clear to auscultation bilaterally Cardio regular rate, regular rhythm and peripheral pulses 2+ throughout Cardio Narrative: Systolic murmur noted. GI normal to inspection, nondistended, normoactive bowel sounds, soft to palpation, non-tender and non-distended Back/Spine normal ROM Extremity normal to inspection, full ROM and no pedal edema Skin no rashes or lesions noted Neuro moves all extremities and no focal motor deficits Speech: speech normal Psych mental status grossly normal Results Lab / Micro Data 02/11/24 22:30 02/11/24 22:30 Labs: Laboratory Results - last 24 hr 02/11/24 22:30: WBC 5.3, RBC 3.57 L, Hgb 11.2 L, Hct 34.5 L, MCV 96.6, MCH 31.4, MCHC 32.5, RDW Std Deviation 50.5 H, RDW Coeff of Tonie 14.3, Plt Count 203, MPV 11.8, Immature Gran % (Auto) 0.600, Neut % (Auto) 53.4, Lymph % (Auto) 34.8, [place] % (Auto) 8.2, Eos % (Auto) 2.6, Baso % (Auto) 0.4, Absolute Neuts (auto) 2.9, Absolute Lymphs (auto) 1.86, Nucleated RBC % 0, PT 16.9 H, INR 1.4, APTT 32.0, Sodium 139, Potassium 3.9, Chloride 103, Carbon Dioxide 25.0, Anion Gap 11, BUN 20 H, Creatinine 1.00, Estim Creat Clear Calc 32.53, Est GFR (MDRD) Af Amer 68, Est GFR (MDRD) Non-Af 56 L, BUN/Creatinine Ratio 20.0, Glucose 109 H, Calcium 9.2, Troponin I High Sens 18, TSH 2.84 Imaging Radiology Impression Chest X-Ray 02/11/24 22:55 IMPRESSION: No acute pulmonary finding. Electronically Signed: Ranjit Dickinson MD at 23:30 EDT , Assessment & Plan Assessment/Plan (1) Atrial fibrillation with rapid ventricular response: (2) Elevated troponin: PLAN: Plan Patient is an 83-year-old female who presented [facility] ED on 02/12/2024 with recurrent A-fib with RVR. 1. Recurrent A-fib with RVR ? Admit under inpatient status to PCU. Cardiology consulted. Was in A-fib with RVR to the 140s on admit, improved to the 110s to 120s on Cardizem drip initially but did not convert so was admitted for further evaluation. Now appears the patient has converted back to normal sinus rhythm with heart rate in 70s. Cardizem drip turned off. Has had mildly low blood pressures, will resume Coreg but at decreased dose of 25 mg twice daily on morning of 02/11. Continue home Eliquis. Appreciate further cardiology recommendations. 2. Elevated troponins ? Troponin trend 18 > 70 in ED. Third troponin pending. Suspect mild uptrend is due to A-fib with RVR with known history of CAD as noted below. Patient notably has asymptomatic and hemodynamically stable at this time. Monitor, treatment as above. Chronic medical conditions: ? History of CAD with stenting, history of nonsustained VT, hypertension, hyperlipidemia: Continue home aspirin, statin, Entresto and Coreg at reduced dose as noted above. ? Aortic stenosis: Echo in 09/2023 called severe aortic valve stenosis with mean systolic gradient 15 mmHg and valve area 0.7 cm?. Notably, on echo in 03/2023 was only called as mild aortic valve stenosis. Cardiology following as above. ? Hypothyroidism: TSH 2.84 on admit. Continue home Synthroid. ? Anxiety/depression: Stable. Continue home escitalopram. DVT prophylaxis: On indicated, on Eliquis CODE STATUS: DNR CCA, DNI Expected disposition: Home, 2 to 3 days Total clinical time spent by myself addressing the patient's medical issues, reviewing all the data, and collaborating with patient's care team: 55 minutes. Charges/Coding Visit Charges Inpatient E&M: 13493 Init Hosp L2
[2024-02-12 00:40] LABS: Reflex Troponin-HS? (from REC) Y
[2024-02-12 01:11] LABS: Troponin-I HS 70 pg/mL (3.0-54.0)
[2024-02-12 04:44] LABS: Hematocrit 27.4 % (37-47); Hemoglobin 8.9 g/dL (12.0-15.0); Mean Corp Hgb Conc 32.5 g/dL (32-36); Mean Corpuscular Hgb 31.6 pg (27.0-32.0); Mean Corpuscular Volume 97.2 fL (81-99); Mean Platelet Vol. 10.9 fl (6.2-12.0); Platelet Count 155 K/mm3 (150-450); RBC Distribution Width CV 14.4 % (11.6-14.6); RBC Distribution Width SD 50.9 fl (35.1-43.9); Red Blood Count 2.82 M/mm3 (4.2-5.4); White Blood Count 4.6 K/mm3 (4.4-11.0)
[2024-02-12 05:16] LABS: Troponin-I HS 237 pg/mL (3.0-54.0)
[2024-02-12] MEDS: Levothyroxine 100 MCG Tablet PO (05:40)
[2024-02-12 06:48] LABS: Anion Gap 6 (5-15); BUN 23 mg/dL (7-18); BUN/Creat Ratio 23.3 RATIO (10-20); Calcium,Total 7.9 mg/dL (8.5-10.1); Chloride 109 mmol/L (98-107); Creatinine, Serum 0.99 mg/dL (0.55-1.02); EST Glomerular Filtration Rate 57 mL/min (>60); Est Glom Filt Rate - Afr Amer 69 mL/min (>60); Estimated Creatinine Clearance 32.86 ml/min; Glucose 111 mg/dL (74-106); Potassium 4.6 mmol/L (3.5-5.1); Sodium Level 141 mmol/L (136-145)
[2024-02-12] MEDS: Carvedilol 25 MG Tablet PO (09:24)
[2024-02-12] MEDS: Escitalopram Oxalate 20 MG Tablet PO (09:24)
[2024-02-12] MEDS: APIXABAN 2.5 MG TABLET (WCH) PO (09:24)
[2024-02-12] MEDS: SACUBITRIL/VALSARTAN 24/26 MG TABLET 1 EACH PO (09:24)
[2024-02-12] MEDS: Clopidogrel Bisulfate 75 MG Tablet PO (09:24)
[2024-02-12] MEDS: dilTIAZem CD 120 MG Capsule PO (12:51)
--- NOTE | 2024-02-12 14:40 | CASEMGMT ---
RN?CM?SENIOR DIRECTOR CREATIVE SERVICES?CM?to room to meet with patient for initial transition planning/care coordination?assessment.?RN?CM?introduced self and role at [facility].? Pt voices understanding and consents to?assessment?at this time.? Pt resting in bed in no distress at this time.? Pt is A/O at this time and answers all questions appropriately.?? Care providers, pharmacy, and demographics verified/updated at this time. PCP: Dr Chahal Specialists: Pt lives in [place] half a year and [place] half a year. Pt goes to [facility]/cardiology, when pt in [place]. Pt also sees a manager retail store in [place] when she is there. Dr Epstein-isaias mgnt. Preferred Pharmacy: [facility] Insurance:[employer] [facility] Prescription Benefit:?yes LNOK: Becky Charles. Friend, Benita Living Arrangements: FriendBenita, moved in w/pt May, 2023. They live in a one-story home w/basement and 3 steps to enter. Pt denies difficulty w/stairs. Pt states it is not necessary for her to go the basement, but if she does go down the stairs, she denies difficulty. Pt is indep w/ADL's. Pt and Benita share home mgnt tasks. Transportation:?Pt states she is able to drive, but she sold her car and Benita does most of the driving. Benita will take pt home @ discharge. DME: ? has a cane. She also has a shower chair, but does not use it. ? Pt states no need for further DME at this time.? HHC/SNF: Hx [facility] in the past and also a SNF in [place] years ago. No hx of HHC. Pt denies need for HHC or OP therapy and no needs identified. Pt wishes to return home and states has no concerns with going home at time of discharge.? PLAN:??Home Eduar FUNKN?RN?CM
--- NOTE | 2024-02-12 15:38 | DCINST_ITS ---
Discharge Instructions Diet Discharge Diet: No restrictions Activity Discharge Activity: Return to Normal Activity Weight Bearing Status: Full weight bearing Follow Up Care Test Results: Test results from this visit will be discussed in further detail at your follow- up appointment, if applicable. Discharge Plan Admission Admit Date/Time: 02/12/24 00:19 Primary Reason for Your Visit: a-fib Attending Provider: Abad Frances Primary Care Provider: Alek Chahal Consulting Providers: Rell Ortega; Javier Lehman Discharge Orders/Prescriptions Prescriptions: New diltiazem HCl 120 mg Capsule,Extended Release 24hr 120 mg PO DAILY Qty: 30 0RF Rx Instructions: Start on 02/13/2024 Continued escitalopram oxalate 20 mg tablet 20 mg PO DAILY levothyroxine 112 MCG tablet 112 mcg PO DAILY PRN Rx Instructions: TAKES EVERY Wednesday & WEDNESDAY aspirin [Arlet Chewable Aspirin] 81 mg tablet,chewable 1 tab PO DAILY levothyroxine 100 mcg tablet 100 mcg PO .,,WED Qty: 36 0RF atorvastatin 80 mg tablet See Rx Instructions .ROUTE .COMPLEX Qty: 90 3RF Dose Instruction: TAKE 1 TABLET AT BEDTIME Rx Instructions: TAKE 1 TABLET AT BEDTIME Eliquis 2.5 mg tablet See Rx Instructions .ROUTE .COMPLEX Qty: 180 3RF Dose Instruction: TAKE 1 TABLET TWICE DAILY Rx Instructions: TAKE 1 TABLET TWICE DAILY Entresto 24-26 mg tablet 1 tab PO BID Qty: 180 3RF potassium chloride 10 mEq tablet extended release 10 meq PO DAILY Qty: 90 3RF carvedilol 25 mg tablet 25 mg PO .COMPLEX Qty: 180 3RF Rx Instructions: 25 mg orally Take a 25 mg tablet with a 12.5 mg tablet TWICE DAILY to = 37.5 TWICE A DAY; must administer with a meal/food carvedilol 12.5 mg tablet 12.5 mg PO .COMPLEX Qty: 180 3RF Rx Instructions: 12.5 mg orally Take with a 25 mg to = 37.5 mg TWICE a day; dose increased in hospital.; must administer with a meal/food Referrals / Follow Up: Javier Lehman MD [Med Staff - Active Staff] - See Referral Note (within 3 weeks) Alek Chahal MD [Primary Care Provider] - Within 1 Month Disposition Disposition (needs filled in before D/C Order can be placed): Home, Self Care
--- NOTE | 2024-02-12 15:54 | PCM.CONS.C ---
Assessment & Plan Assessment/Plan (1) Atrial fibrillation with rapid ventricular response: PLAN: Converted to sinus rhythm. Agree with current medical regimen. Elevated troponin is likely secondary to A-fib with RVR. No further workup required for this. (2) History of coronary artery stent placement: PLAN: Continue present management. PLAN: Plan Okay to discharge home. She can follow-up with Dr. 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 HPI Consult Data Date of Consult: 02/12/24 HPI Narrative Reason for Consultation: Atrial fibrillation HPI Narrative: JENNY MARI, is a 83 F who presents with A-fib with RVR. Patient has history of paroxysmal A-fib. She was started on Cardizem and she has converted to sinus rhythm. She has been started on p.o. Cardizem as well. She is doing well at this time with no significant cardiac complaints at this time. [facility] Medical History SVT (supraventricular tachycardia) Anemia Acute hyponatremia Atherosclerosis of coronary artery of [place] heart without angina pectoris PAF (paroxysmal atrial fibrillation) Nonrheumatic aortic (valve) stenosis Compression fracture Essential (primary) hypertension Premature ventricular beats Myocarditis Solar elastosis Arthritis Depression Right leg DVT Nonsustained paroxysmal ventricular tachycardia Non-ischemic cardiomyopathy Home Medications ?Medication ?Instructions ?Recorded ?Last Taken ?Type levothyroxine 112 mcg tablet 112 mcg PO DAILY PRN hypothroidism 02/17/20 04/21/23 History escitalopram oxalate 20 mg tablet 20 mg PO DAILY anxiety 07/29/21 04/23/23 History levothyroxine 100 mcg tablet 100 mcg PO .PRUDENCIO MORILLO,UMESH Fill as a 12/15/22 04/22/23 Rx courtesy until pt returns to [place] #36 tabs atorvastatin 80 mg tablet See Rx Instructions .Route 10/14/23 Unknown Rx .COMPLEX #90 tabs apixaban 2.5 mg tablet (Eliquis) See Rx Instructions .Route 11/01/23 Unknown Rx .COMPLEX #180 tabs potassium chloride 10 mEq 10 meq PO DAILY #90 tabs 11/29/23 Unknown Rx tablet,extended release sacubitril 24 mg-valsartan 26 mg 1 tab PO BID #180 tabs 11/29/23 Unknown Rx tablet (Entresto) carvedilol 12.5 mg tablet 12.5 mg PO .COMPLEX #180 tabs 02/09/24 Unknown Rx carvedilol 25 mg tablet 25 mg PO .COMPLEX waiting on mail 02/09/24 Unknown Rx in RX #180 tabs aspirin 81 mg chewable tablet 1 tab PO DAILY blood thinner 02/12/24 Unknown History (Arlet Chewable Low Dose Aspirin) diltiazem HCl 120 mg 120 mg PO DAILY #30 caps 02/12/24 Unknown Rx capsule,extended release 24 hr Allergy/AdvReac Type Severity Reaction Status Date / Time imiquimod (From Aldara) Allergy Unknown Verified 02/11/24 22:11 Penicillins (PCN) Allergy Anaphylaxis Verified 02/11/24 22:11 amlodipine AdvReac Intermediate swelling Verified 02/11/24 22:11 in feet and legs dapagliflozin (From Farxiga) AdvReac Intermediate Lightheaded Verified 02/11/24 22:11 and faint ciprofloxacin (From Cipro) AdvReac Other Verified 02/11/24 22:11 furosemide AdvReac low saodium Verified 02/11/24 22:11 hydrochlorothiazide AdvReac hyponatremi Verified 02/11/24 22:11 a magnesium AdvReac Nausea Verified 02/11/24 22:11 prednisone AdvReac Upset Verified 02/11/24 22:11 Stomach Family History Mother Heart disease Father Heart disease Surgical History History of coronary artery stent placement (01/21/23) History of cataract surgery History of right hip replacement History of hysterectomy History of left heart catheterization (02/19/11) Social History household members: none Smoking Status: Former smoker how long ago did patient quit smokin years ago alcohol intake: current alcohol intake frequency: holidays/special occasions only substance use type: does not use caffeine: Yes Type: coffee Number of servings: 1 Physical Exam Const alert and oriented x3 HEENT normocephalic Eyes no scleral icterus Resp normal respiratory effort Cardio regular rate Risk Stratification Risk Stratification Applicable: No Charges/Coding Visit Charges Inpatient E&M: 77740 Init Hosp L1 Objective Data Vital Signs: Vital Signs Temp Pulse Resp BP Pulse Ox O2 Del Method 98.1 F 66 18 130/86 H 97 Room Air 02/12/24 12:50 02/12/24 12:50 02/12/24 12:50 02/12/24 12:50 02/12/24 12:50 02/12/24 12:50 Oxygen Delivery Method Room Air Weight: 131 lb 9.855 oz Body Mass Index (BMI) 24.0 Intake & Output: Intake and Output for Last 24 Hours 02/10/24 02/11/24 02/12/24 23:59 23:59 23:59 Intake Total 717.5 / 717.5 Balance 717.5 / 717.5 Lab / Micro Data 02/12/24 04:35 02/12/24 04:35 Labs: Laboratory Results - last 24 hr 02/11/24 22:30: WBC 5.3, RBC 3.57 L, Hgb 11.2 L, Hct 34.5 L, MCV 96.6, MCH 31.4, MCHC 32.5, RDW Std Deviation 50.5 H, RDW Coeff of Tonie 14.3, Plt Count 203, MPV 11.8, Immature Gran % (Auto) 0.600, Neut % (Auto) 53.4, Lymph % (Auto) 34.8, [place] % (Auto) 8.2, Eos % (Auto) 2.6, Baso % (Auto) 0.4, Absolute Neuts (auto) 2.9, Absolute Lymphs (auto) 1.86, Nucleated RBC % 0, PT 16.9 H, INR 1.4, APTT 32.0, Sodium 139, Potassium 3.9, Chloride 103, Carbon Dioxide 25.0, Anion Gap 11, BUN 20 H, Creatinine 1.00, Estim Creat Clear Calc 32.53, Est GFR (MDRD) Af Amer 68, Est GFR (MDRD) Non-Af 56 L, BUN/Creatinine Ratio 20.0, Glucose 109 H, Calcium 9.2, Troponin I High Sens 18, TSH 2.84 02/12/24 00:45: Troponin I High Sens 70 H 02/12/24 04:35: WBC 4.6, RBC 2.82 L, Hgb 8.9 L, Hct 27.4 L, MCV 97.2, MCH 31.6, MCHC 32.5, RDW Std Deviation 50.9 H, RDW Coeff of Tonie 14.4, Plt Count 155, MPV 10.9, Sodium 141, Potassium 4.6, Chloride 109 H, Carbon Dioxide 26.0, Anion Gap 6, BUN 23 H, Creatinine 0.99, Estim Creat Clear Calc 32.86, Est GFR (MDRD) Af Amer 69, Est GFR (MDRD) Non-Af 57 L, BUN/Creatinine Ratio 23.3 H, Glucose 111 H, Calcium 7.9 L, Troponin I High Sens 237 H* Cardiology Labs/Tests 02/11/24 22:30: WBC 5.3, RBC 3.57 L, Hgb 11.2 L, Hct 34.5 L, MCV 96.6, MCH 31.4, MCHC 32.5, Plt Count 203, MPV 11.8, Immature Gran % (Auto) 0.600, Neut % (Auto) 53.4, Lymph % (Auto) 34.8, [place] % (Auto) 8.2, Eos % (Auto) 2.6, Baso % (Auto) 0.4, Absolute Neuts (auto) 2.9, Nucleated RBC % 0, PT 16.9 H, INR 1.4, APTT 32.0, Sodium 139, Potassium 3.9, Chloride 103, Carbon Dioxide 25.0, Anion Gap 11, BUN 20 H, Creatinine 1.00, Est GFR (MDRD) Af Amer 68, Est GFR (MDRD) Non-Af 56 L, BUN/Creatinine Ratio 20.0, Glucose 109 H, Calcium 9.2 02/12/24 04:35: WBC 4.6, RBC 2.82 L, Hgb 8.9 L, Hct 27.4 L, MCV 97.2, MCH 31.6, MCHC 32.5, Plt Count 155, MPV 10.9, Sodium 141, Potassium 4.6, Chloride 109 H, Carbon Dioxide 26.0, Anion Gap 6, BUN 23 H, Creatinine 0.99, Est GFR (MDRD) Af Amer 69, Est GFR (MDRD) Non-Af 57 L, BUN/Creatinine Ratio 23.3 H, Glucose 111 H, Calcium 7.9 L Rhythm: EKG: ECHO: Stress Test: Cardiac Cath: PCI: CT Surgery: Holter monitor: EPS: PPM: CXR: Chest CT Scan: Radiography Diagnostic Testing: Radiology Impression Chest X-Ray 02/11/24 22:55 IMPRESSION: No acute pulmonary finding. Electronically Signed: Ranjit Dickinson MD at 23:30 EDT ,
--- NOTE | 2024-02-12 15:57 | DS.PCM_ITS ---
Providers Date of Admission: 02/12/24 Date of Discharge: 02/12/24 Primary Care Physician: Dr. Alek Chahal MD Consultations 02/12/24 00:51 Consult: Cardiology Routine Consulting Provider: Javier Lehman Reason for Consult: known to you, recurrent afib w/ rvr EMERGENT Consult: No MD Notified: Yes Date Notified: 02/12/24 Time Notified: 06:47 Method of Notification: Text Reason For Visit: A-FIB WITH RVR Diagnosis Discharge Diagnosis (1) Atrial fibrillation with rapid ventricular response: Status: Acute Code(s): I48.91 - Unspecified atrial fibrillation (2) History of coronary artery stent placement: Status: Acute Code(s): Z95.5 - Presence of coronary angioplasty implant and graft Plan 1. Paroxysmal A-fib with RVR #2 demand ischemia from paroxysmal A-fib #3 atherosclerotic heart disease #4 nonischemic cardiomyopathy #5 essential hypertension Type II [place] was ruled out Medications at Discharge Home Medications levothyroxine 112 mcg tablet 112 mcg PO DAILY PRN hypothroidism 02/17/20 escitalopram oxalate 20 mg tablet 20 mg PO DAILY anxiety 07/29/21 levothyroxine 100 mcg tablet 100 mcg PO .PRUDENCIO MORILLO SAT Fill as a courtesy until pt returns to [place] #36 tabs 12/15/22 atorvastatin 80 mg tablet See Rx Instructions .Route .COMPLEX #90 tabs 10/14/23 apixaban 2.5 mg tablet (Eliquis) See Rx Instructions .Route .COMPLEX #180 tabs 11/01/23 potassium chloride 10 mEq tablet,extended release 10 meq PO DAILY #90 tabs 11/29/23 sacubitril 24 mg-valsartan 26 mg tablet (Entresto) 1 tab PO BID #180 tabs 11/29/23 carvedilol 12.5 mg tablet 12.5 mg PO .COMPLEX #180 tabs 02/09/24 carvedilol 25 mg tablet 25 mg PO .COMPLEX waiting on mail in RX #180 tabs 02/09/24 aspirin 81 mg chewable tablet (Arlet Chewable Low Dose Aspirin) 1 tab PO DAILY blood thinner 02/12/24 diltiazem HCl 120 mg capsule,extended release 24 hr 120 mg PO DAILY #30 caps 02/12/24 Hospital Course Operations None Procedures None Summary of Care Provided Minutes Spent on Discharge: 31 Hospital Course: This 83-year-old white female was seen in the emergency room at [facility] with complaints of elevated heart rate and palpitations. She also complained of nausea. Patient had no complaints of any chest pain. Workup in the emergency room showed the patient to be in A-fib with a rapid ventricular response, she was given IV Cardizem with lowering of the rate. Patient's labs showed a normal troponin, CBC was remarkable for hemoglobin of 11.2, white blood cell count was normal. Chemistry profile was unremarkable. EKG showed no evidence of ischemic changes. Patient was admitted to PCU, she subsequently converted to normal sinus rhythm, she was seen in consultation by cardiology- patient's repeat troponins were elevated, cardiology did not feel this was indicative of the type II [place]. Patient was placed on oral Cardizem which she tolerated well. On 02/12/2024, patient was seen and examined: On examination she appeared in good health and spirits, she does not appear to be in any distress. Vital signs as documented. Skin warm and dry and without overt rashes. Neck without JVD, thyroid appears normal, trachea is midline, neck is supple. Lungs clear, normal air movement was noted. Heart exam notable for regular rhythm, normal sounds and absence of murmurs, rubs or gallops. Abdomen unremarkable and without evidence of organomegaly, masses, or abdominal aortic enlargement, bowel sounds are present in all 4 quadrants, no abdominal tenderness was noted. Extremities nonedematous, no cyanosis was noted, no clubbing was noted. Neuro: Cranial nerves II through XII are grossly intact, no focal motor deficits were noted, sensation to light touch and pinprick is intact, motor exam 5/5 throughout. Psych: Patient is alert and oriented x3, she does not appear anxious or depressed, she does not appear agitated. Patient was discharged home in stable condition on 02/12/2024 Weight / BMI Weight Weight: 59.7 kg Body Mass Index (BMI) 24.0 ABG / Lab / Microbiology Data 02/12/24 04:35 02/12/24 04:35 Laboratory: Laboratory Results - last 24 hr 02/11/24 22:30: WBC 5.3, RBC 3.57 L, Hgb 11.2 L, Hct 34.5 L, MCV 96.6, MCH 31.4, MCHC 32.5, RDW Std Deviation 50.5 H, RDW Coeff of Tonie 14.3, Plt Count 203, MPV 11.8, Immature Gran % (Auto) 0.600, Neut % (Auto) 53.4, Lymph % (Auto) 34.8, [place] % (Auto) 8.2, Eos % (Auto) 2.6, Baso % (Auto) 0.4, Absolute Neuts (auto) 2.9, Absolute Lymphs (auto) 1.86, Nucleated RBC % 0, PT 16.9 H, INR 1.4, APTT 32.0, Sodium 139, Potassium 3.9, Chloride 103, Carbon Dioxide 25.0, Anion Gap 11, BUN 20 H, Creatinine 1.00, Estim Creat Clear Calc 32.53, Est GFR (MDRD) Af Amer 68, Est GFR (MDRD) Non-Af 56 L, BUN/Creatinine Ratio 20.0, Glucose 109 H, Calcium 9.2, Troponin I High Sens 18, TSH 2.84 02/12/24 00:45: Troponin I High Sens 70 H 02/12/24 04:35: WBC 4.6, RBC 2.82 L, Hgb 8.9 L, Hct 27.4 L, MCV 97.2, MCH 31.6, MCHC 32.5, RDW Std Deviation 50.9 H, RDW Coeff of Tonie 14.4, Plt Count 155, MPV 10.9, Sodium 141, Potassium 4.6, Chloride 109 H, Carbon Dioxide 26.0, Anion Gap 6, BUN 23 H, Creatinine 0.99, Estim Creat Clear Calc 32.86, Est GFR (MDRD) Af Amer 69, Est GFR (MDRD) Non-Af 57 L, BUN/Creatinine Ratio 23.3 H, Glucose 111 H, Calcium 7.9 L, Troponin I High Sens 237 H* Radiography Diagnostic Testing: Radiology Impression Chest X-Ray 02/11/24 22:55 IMPRESSION: No acute pulmonary finding. Electronically Signed: Ranjit Dickinson MD at 23:30 EDT Reading Location ID and State: [address] [place] [address] Tel , Service support , D/C Instructions Discharge Diet: No restrictions Weight Bearing Status: Full weight bearing Meaningful Use Info Meaningful Use Meaningful Use Diagnoses (Choose all that apply): None applicable Ischemic Stroke Statin Dosing Therapy Reference: STATIN DOSE THERAPY REFERENCE: * Patients > 75 years receive moderate or high dose statin therapy. * Patients 75 years or YOUNGER should receive HIGH intensity statin dose unless contraindicated. You will be required to document reason for non-treatment if statin daily dose does not meet guidelines. HIGH DOSE STATIN THERAPY DAILY Atorvastatin > than or = to 40 mg Rosuvastatin > than or = to 20 mg Amlodipine + Atorvastatin > than or = to 2.5/40 mg Ezetimibe + Simvastatin 10/80 mg Simvastatin 80mg Discharge Plan Admission Admit Date/Time: 02/12/24 00:19 Primary Reason for Your Visit: carter-perla Attending Provider: Abad Frances Primary Care Provider: Alek Chahal Consulting Providers: Rell Ortega; Javier Lehman Discharge Orders/Prescriptions Prescriptions: New diltiazem HCl 120 mg Capsule,Extended Release 24hr 120 mg PO DAILY Qty: 30 0RF Rx Instructions: Start on 02/13/2024 Continued escitalopram oxalate 20 mg tablet 20 mg PO DAILY levothyroxine 112 MCG tablet 112 mcg PO DAILY PRN Rx Instructions: TAKES EVERY Wednesday & WEDNESDAY aspirin [Arlet Chewable Aspirin] 81 mg tablet,chewable 1 tab PO DAILY levothyroxine 100 mcg tablet 100 mcg PO .,,WED Qty: 36 0RF atorvastatin 80 mg tablet See Rx Instructions .ROUTE .COMPLEX Qty: 90 3RF Dose Instruction: TAKE 1 TABLET AT BEDTIME Rx Instructions: TAKE 1 TABLET AT BEDTIME Eliquis 2.5 mg tablet See Rx Instructions .ROUTE .COMPLEX Qty: 180 3RF Dose Instruction: TAKE 1 TABLET TWICE DAILY Rx Instructions: TAKE 1 TABLET TWICE DAILY Entresto 24-26 mg tablet 1 tab PO BID Qty: 180 3RF potassium chloride 10 mEq tablet extended release 10 meq PO DAILY Qty: 90 3RF carvedilol 25 mg tablet 25 mg PO .COMPLEX Qty: 180 3RF Rx Instructions: 25 mg orally Take a 25 mg tablet with a 12.5 mg tablet TWICE DAILY to = 37.5 TWICE A DAY; must administer with a meal/food carvedilol 12.5 mg tablet 12.5 mg PO .COMPLEX Qty: 180 3RF Rx Instructions: 12.5 mg orally Take with a 25 mg to = 37.5 mg TWICE a day; dose increased in hospital.; must administer with a meal/food Referrals / Follow Up: Javier Lehman MD [Med Staff - Active Staff] - See Referral Note (within 3 weeks) Alek Chahal MD [Primary Care Provider] - Within 1 Month Disposition Disposition (needs filled in before D/C Order can be placed): Home, Self Care Charges/Coding Visit Charges Inpatient E&M: 27606 Disch Hosp >30min
== END 2024-02-12 16:26 | disposition home or self-care (01) | DRG 309 ==
LOC: ED 02-12 00:09 → PCU 02-12 00:29
PROVIDERS: Admitting Provider Hospitalist; Emergency Provider Emergency Medicine; PCP Family Medicine; Referring Provider Hospitalist; Visit Provider Internal Medicine
DX: I48.0 Paroxysmal atrial fibrillation (principal); I24.89 Other forms of acute ischemic heart disease; I42.8 Other cardiomyopathies; E03.9 Hypothyroidism, unspecified; I10 Essential (primary) hypertension; F32.A Depression, unspecified; I25.10 Atherosclerotic heart disease of native coronary artery without angina pectoris; E78.5 Hyperlipidemia, unspecified; Z87.891 Personal history of nicotine dependence; Z79.01 Long term (current) use of anticoagulants; Z79.899 Other long term (current) drug therapy; Z96.641 Presence of right artificial hip joint; Z90.710 Acquired absence of both cervix and uterus; R79.89 Other specified abnormal findings of blood chemistry; Z79.82 Long term (current) use of aspirin
CPT/HCPCS: 36415; 71045; 77063; 77067; 80048; 84443; 84484; 85025; 85027; 85610; 85730; 93005; 99285; J7030; A4216

== ENCOUNTER 2024-02-21 09:57 | Outpatient (RCR) | payer MEDICARE, SELFPAY ==
[2023-05-07 08:38] VITALS: BMI 23.0
== END 2024-02-21 19:00 | disposition home or self-care (01) ==
LOC: PT 09:57
PROVIDERS: PCP Family Medicine; Referring Provider Anesthesiology; Visit Provider Anesthesiology
DX: M47.816 Spondylosis without myelopathy or radiculopathy, lumbar region (principal); M47.817 Spondylosis without myelopathy or radiculopathy, lumbosacral region; M48.062 Spinal stenosis, lumbar region with neurogenic claudication; T14.8XXD Other injury of unspecified body region, subsequent encounter

== ENCOUNTER 2024-03-03 03:22 | Inpatient (IN) | payer MEDICARE, SELFPAY ==
[2023-05-07 08:38] VITALS: BMI 23.0
[2024-03-03] VITALS (17 sets, daily range): BP systolic 98–130; BP diastolic 54–95; PULSE 69–138; RESP 8–25; TEMP 36.6–36.8; O2SAT 92–98; BMI 23.7
--- NOTE | 2024-03-03 03:29 | EKG12_ITS ---
Test Reason : CHANGE Blood Pressure : / mmHG Vent. Rate : 064 BPM Atrial Rate : 064 BPM P-R Int : 204 ms QRS Dur : 092 ms QT Int : 404 ms P-R-T Axes : 074 -09 059 degrees QTc Int : 416 ms Normal sinus rhythm with sinus arrhythmia Normal ECG When compared with ECG of 03-MAR-2024 03:26, MANUAL COMPARISON REQUIRED, DATA IS UNCONFIRMED Confirmed by DACIA CAVAZOS, SHARMAINE ([id number]), science editor SHILPI CEJA ([id number]) on 03/06/2024 10:26:33 AM Referred By: [facility] Confirmed By:SHARMAINE PEDERSON MD
--- NOTE | 2024-03-03 03:29 | RAD_ITS ---
INDICATION: chest pain EXAMINATION/TECHNIQUE: X-RAY - XR Chest 1 View COMPARISON: No relevant prior comparison study available FINDINGS: LINES/DEVICES: None. LUNGS: No consolidation, edema or effusion. No pneumothorax. MEDIASTINUM AND CARDIOVASCULAR STRUCTURES: Cardiac silhouette is moderately enlarged. Central airways and mediastinal contour are unremarkable. BONES AND SOFT TISSUES: Unremarkable. RAD/Chest 1 View (Portable) IMPRESSION: Moderate cardiomegaly. Electronically Signed: Tres Walsh MD at 5:00 EDT ,
[2024-03-03] MEDS: dilTIAZem 25 MG/5 ML Vial 10 MG IV BOLUS ×2 (03:40→04:09)
--- NOTE | 2024-03-03 03:41 | ED.VIS.CHEST ---
HPI History of Present Illness Chief Complaint: Chest Pain Informant: patient Onset/Context/Timing Onset: Today Narrative Narrative: Patient presents with approximate 25 minutes of chest pain. Patient states she got up during the night to go the bathroom and developed chest pain. She describes it as a burning sensation. She does have a history of paroxysmal A-fib and does appear to be in A-fib RVR at this time. Patient is chronically on Eliquis and states that she has been taking her medication. She was admitted to the hospital briefly last month with A-fib RVR and she converted to sinus rhythm. She was started on oral Cardizem during that visit. No other recent medication changes. [facility] Medical History Elevated troponin SVT (supraventricular tachycardia) Anemia Acute hyponatremia Atherosclerosis of coronary artery of [place] heart without angina pectoris PAF (paroxysmal atrial fibrillation) Nonrheumatic aortic (valve) stenosis Compression fracture Essential (primary) hypertension Premature ventricular beats Myocarditis Solar elastosis Arthritis Depression Right leg DVT Nonsustained paroxysmal ventricular tachycardia Non-ischemic cardiomyopathy Home Medications ?Medication ?Instructions ?Recorded ?Last Taken ?Type levothyroxine 112 mcg tablet 112 mcg PO DAILY PRN hypothroidism 02/17/20 04/21/23 History escitalopram oxalate 20 mg tablet 20 mg PO DAILY anxiety 07/29/21 04/23/23 History atorvastatin 80 mg tablet See Rx Instructions .Route 10/14/23 Unknown Rx .COMPLEX #90 tabs apixaban 2.5 mg tablet (Eliquis) See Rx Instructions .Route 11/01/23 Unknown Rx .COMPLEX #180 tabs sacubitril 24 mg-valsartan 26 mg 1 tab PO BID #180 tabs 11/29/23 Unknown Rx tablet (Entresto) carvedilol 12.5 mg tablet 12.5 mg PO .COMPLEX #180 tabs 02/09/24 Unknown Rx carvedilol 25 mg tablet 25 mg PO .COMPLEX waiting on mail 02/09/24 Unknown Rx in RX #180 tabs aspirin 81 mg chewable tablet 1 tab PO DAILY blood thinner 02/12/24 Unknown History (Arlet Chewable Low Dose Aspirin) diltiazem HCl 120 mg 120 mg PO DAILY #30 caps 02/12/24 Unknown Rx capsule,extended release 24 hr potassium chloride 10 mEq 10 meq PO DAILY #90 tabs 02/18/24 Unknown Rx tablet,extended release alendronate 70 mg tablet 70 mg PO QWEEK 03/03/24 Unknown History Allergy/AdvReac Type Severity Reaction Status Date / Time imiquimod (From Aldara) Allergy Unknown Verified 03/03/24 03:27 Penicillins (PCN) Allergy Anaphylaxis Verified 03/03/24 03:27 amlodipine AdvReac Intermediate swelling Verified 03/03/24 03:27 in feet and legs dapagliflozin (From Farxiga) AdvReac Intermediate Lightheaded Verified 03/03/24 03:27 and faint ciprofloxacin (From Cipro) AdvReac Other Verified 03/03/24 03:27 furosemide AdvReac low saodium Verified 03/03/24 03:27 hydrochlorothiazide AdvReac hyponatremi Verified 03/03/24 03:27 a magnesium AdvReac Nausea Verified 03/03/24 03:27 prednisone AdvReac Upset Verified 03/03/24 03:27 Stomach Family History Mother Heart disease Father Heart disease Surgical History History of coronary artery stent placement (01/21/23) History of cataract surgery History of right hip replacement History of hysterectomy History of left heart catheterization (02/19/11) Social History household members: none Smoking Status: Former smoker how long ago did patient quit smokin years ago alcohol intake: current alcohol intake frequency: holidays/special occasions only substance use type: does not use caffeine: Yes Type: coffee Number of servings: 1 ROS ROS ED Constitutional Constitutional ED: Denies chills or fever(s) Eyes Eyes: Denies change in vision ENT ENT ED: Denies rhinorrhea or sore throat Cardiovascular Cardiovascular: Reports chest pain, palpitations and racing heartbeat Respiratory/Chest Respiratory/Chest: Reports dyspnea; Denies cough Gastrointestinal Gastrointestinal: Reports nausea; Denies abdominal pain or vomiting Musculoskeletal Musculoskeletal: Denies back pain or extremity pain Integumentary Denies Abrasions or rash Neurologic Neurologic: Denies headache(s) or weakness Psychiatric Psychiatric: Denies anxiety or depression Allergic/Immunologic Allergic/Immunologic ED: Denies lip swelling or urticaria EXAM Physical Exam Const Vital Signs: 03/03/24 03:23 03/03/24 03:23 03/03/24 03:29 Temperature 97.9 F Temperature Source Temporal Pulse Rate 138 H Respiratory Rate 25 H Respiratory Effort Short of Breath Blood Pressure 121/89 H Blood Pressure Mean 99 Pulse Ox 98 Oxygen Delivery Method Room Air Oxygen Flow Rate (L/min) 03/03/24 04:23 03/03/24 05:00 03/03/24 06:00 Temperature Temperature Source Pulse Rate 109 H 102 H 132 H Respiratory Rate 21 H 20 H 16 Respiratory Effort Blood Pressure 105/63 99/64 98/77 Blood Pressure Mean 77 75 84 Pulse Ox 92 95 97 Oxygen Delivery Method Room Air Nasal Cannula Nasal Cannula Oxygen Flow Rate (L/min) 2 2 Positive well nourished HEENT Reports moist mucous membranes Eyes EOMs intact bilaterally Chest Wall inspection of chest normal and palpation of chest normal Resp normal respiratory effort and clear to auscultation bilaterally Cardio Rate: tachycardic Rhythm: abnormal rhythm irregularly irregular GI soft to palpation and non-tender Extremity normal to inspection Neuro oriented x3 Psych Mood & Affect: anxious Skin no rashes or lesions noted MDM MDM MDM Narrative Medical decision making narrative: Patient placed on compliance monitor. IV line initiated. Aspirin ordered. Labwork obtained to evaluate for leukocytosis, anemia, and electrolyte derangement. EKG obtained to evaluate for cardiac arrhythmia/ischemia. Chest x-ray obtained to evaluate for acute lung pathology, cardiac size, or mediastinal abnormality. Patient was noted to be in A-fib RVR. 10 mg of IV Cardizem ordered for rate control. History & Record Review Discussion w/independent historian: Patient Additional record(s) reviewed:: Prior inpatient record, Prior outpatient record, Prior ED visit and Prior labs Lab Data Attestation: I reviewed the patient's lab results. Labs: Laboratory Results - last 24 hr 03/03/24 03/03/24 03:32 05:56 WBC 5.1 RBC 3.60 L Hgb 11.1 L Hct 34.5 L MCV 95.8 MCH 30.8 MCHC 32.2 RDW Std Deviation 48.6 H RDW Coeff of Tonie 13.7 Plt Count 178 MPV 11.8 Immature Gran % (Auto) 0.200 Neut % (Auto) 43.4 L Lymph % (Auto) 45.7 H [place] % (Auto) 7.6 Eos % (Auto) 2.7 Baso % (Auto) 0.4 Absolute Neuts (auto) 2.2 Absolute Lymphs (auto) 2.34 Nucleated RBC % 0 Sodium 138 Potassium 3.7 Chloride 104 Carbon Dioxide 23.0 Anion Gap 11 BUN 20 H Creatinine 1.04 H Estim Creat Clear Calc 31.28 Est GFR (MDRD) Af Amer 65 Est GFR (MDRD) Non-Af 54 L BUN/Creatinine Ratio 19.2 Glucose 142 H Calcium 9.1 Troponin I High Sens 15 17 Radiography Chest X-Ray - ED: 1 View, Read by ED Physician, Chronic Changes and No Infiltrates Diagnostic Testing: Clinical Impression(s) from Imaging Studies Chest X-Ray 03/03/24 03:29 IMPRESSION: Moderate cardiomegaly. Electronically Signed: Tres Walsh MD at 5:00 EDT , EKG Initial EKG: Attestation: I personally reviewed and interpreted this EKG as follows: Interpretation: Atrial Fibrillation (A-fib RVR with ventricular rate of 121. Mild lateral ST depression.) Treatment and Re-Evaluation :: CBC was normal white count 5.1 with a hemoglobin 11.1. This is consistent with her recent admission. Chemistry studies reveal a BUN of 20 and creatinine 1.04. Initial troponin is 15 with a 2-hour repeat troponin of 17. After the initial 10 mg of IV Cardizem, patient's heart rate remained in the high 1 teens to low 120s. Blood pressure initially dropped to 91/64 but rebounded up to 104/68. She was given a second dose of IV Cardizem at 10 mg. Patient's heart rate improved to around 100 with some long pauses looking as if she was going to convert to sinus rhythm. Unfortunately, she remains in A-fib and heart rate has increased again to around 130. Blood pressure had dropped into the high 80s systolic but has rebounded with IV fluids. She is not symptomatic with this. She does report that her chest pain is improved at this time. I will start the patient on a Cardizem drip at 5 mg/h for rate control while closely watching her blood pressure. Patient was recently admitted to the hospital with A-fib RVR and elevated troponin values. It was felt that her elevated troponin was secondary to her heart rate and no other investigation was noted. Patient specifically states that she was not having any chest pain with that last episode. She was only having some fluttering in her neck with the fast heart rate. She states that her pain tonight was an 8 out of 10 when she arrived and she has not had chest pain like that for quite some time. She does have a history of coronary disease with cardiac stents. I do feel she warrants a cycling of enzymes and admission for rate control. I will speak with the hospitalist. Discharge Plan Triage Chief Complaint: Chest Pain ED Provider: Patrica Mendoza Dx/Rx/DC Orders Clinical Impression: Chest pain, Atrial fibrillation with RVR Prescriptions: No Action escitalopram oxalate 20 mg tablet 20 mg PO DAILY potassium chloride 10 mEq tablet extended release 10 meq PO DAILY Qty: 90 3RF levothyroxine 112 MCG tablet 112 mcg PO DAILY PRN Rx Instructions: TAKES EVERY Wednesday & WEDNESDAY aspirin [Arlet Chewable Aspirin] 81 mg tablet,chewable 1 tab PO DAILY diltiazem HCl 120 mg Capsule,Extended Release 24hr 120 mg PO DAILY Qty: 30 0RF Rx Instructions: Start on 02/13/2024 alendronate 70 mg tablet 70 mg PO QWEEK atorvastatin 80 mg tablet See Rx Instructions .ROUTE .COMPLEX Qty: 90 3RF Dose Instruction: TAKE 1 TABLET AT BEDTIME Rx Instructions: TAKE 1 TABLET AT BEDTIME Eliquis 2.5 mg tablet See Rx Instructions .ROUTE .COMPLEX Qty: 180 3RF Dose Instruction: TAKE 1 TABLET TWICE DAILY Rx Instructions: TAKE 1 TABLET TWICE DAILY Entresto 24-26 mg tablet 1 tab PO BID Qty: 180 3RF carvedilol 25 mg tablet 25 mg PO .COMPLEX Qty: 180 3RF Rx Instructions: 25 mg orally Take a 25 mg tablet with a 12.5 mg tablet TWICE DAILY to = 37.5 TWICE A DAY; must administer with a meal/food carvedilol 12.5 mg tablet 12.5 mg PO .COMPLEX Qty: 180 3RF Rx Instructions: 12.5 mg orally Take with a 25 mg to = 37.5 mg TWICE a day; dose increased in hospital.; must administer with a meal/food Primary Care Provider: Alek Chahal Referrals: Alek Chahal MD [Primary Care Provider] - Print Language: Estonian Disposition Disposition: Acute Care [facility]
[2024-03-03] MEDS: Aspirin 81 MG TAB.CHEW 324 MG PO (03:42)
[2024-03-03 03:52] LABS: Absolute Lymphocyte Count 2.34 X10^3/uL (0.83-4.51); Absolute Neutrophil Count 2.2 X10^3/uL (2.0-7.7); Basophil# 0.02 X10^3/uL; Basophil% 0.4 % (0-1); Eosinophil# 0.14 X10^3/uL; Eosinophils% 2.7 % (0-5); Hematocrit 34.5 % (37-47); Hemoglobin 11.1 g/dL (12.0-15.0); Lymphocyte # 2.34 X10^3/ul (0.83-4.51); Lymphocyte % 45.7 % (19-41); Mean Corp Hgb Conc 32.2 g/dL (32-36); Mean Corpuscular Hgb 30.8 pg (27.0-32.0); Mean Corpuscular Volume 95.8 fL (81-99); Mean Platelet Vol. 11.8 fl (6.2-12.0); Monocyte# 0.39 X10^3/uL; Monocyte% 7.6 % (0-10); NRBC Flagged by Analyzer 0 % (0-5); Neutrophil # 2.22 X10^3/uL (2.7-7.7); Neutrophil % 43.4 % (47-70); Platelet Count 178 K/mm3 (150-450); RBC Distribution Width CV 13.7 % (11.6-14.6); RBC Distribution Width SD 48.6 fl (35.1-43.9); White Blood Count 5.1 K/mm3 (4.4-11.0)
[2024-03-03 04:10] LABS: Anion Gap 11 (5-15); BUN 20 mg/dL (7-18); BUN/Creat Ratio 19.2 RATIO (10-20); Calcium,Total 9.1 mg/dL (8.5-10.1); Chloride 104 mmol/L (98-107); Creatinine, Serum 1.04 mg/dL (0.55-1.02); EST Glomerular Filtration Rate 54 mL/min (>60); Est Glom Filt Rate - Afr Amer 65 mL/min (>60); Estimated Creatinine Clearance 31.28 ml/min; Glucose 142 mg/dL (74-106); Potassium 3.7 mmol/L (3.5-5.1); Sodium Level 138 mmol/L (136-145); Troponin-I HS (w/2H Reflex) 15 pg/mL (3.0-54.0)
[2024-03-03] MEDS: 0.9% Normal Saline (1000mL) 1,000 ML 150 ML IV (04:10)
[2024-03-03 05:50] LABS: Reflex Troponin-HS? (from REC) Y
[2024-03-03 06:27] LABS: Troponin-I HS 17 pg/mL (3.0-54.0)
[2024-03-03] MEDS: Diltiazem 125 MG in Dextrose 5%-Water (100mL Bag) 100 ML CONT INF (07:04)
--- NOTE | 2024-03-03 07:05 | NURSING ---
PCEstevan SWAN AFIB RVR
[2024-03-03] MEDS: Amiodarone 360 MG in Dextrose 5% Viaflo Bag 192.8 ML 33.3 MG CONT INF (08:27)
--- NOTE | 2024-03-03 09:42 | EKG12_ITS ---
Test Reason : CP Blood Pressure : / mmHG Vent. Rate : 121 BPM Atrial Rate : 000 BPM P-R Int : 000 ms QRS Dur : 090 ms QT Int : 298 ms P-R-T Axes : 000 -10 092 degrees QTc Int : 423 ms Atrial fibrillation with rapid ventricular response Septal infarct , age undetermined Abnormal ECG Confirmed by Ray Bey ([id number]), editor school photograph SHILPI CEJA ([id number]) on 03/06/2024 10:34:57 AM Referred By: NIYAH Confirmed By:Ray Bey
[2024-03-03] MEDS: SACUBITRIL/VALSARTAN 24/26 MG TABLET 1 EACH PO (09:52)
[2024-03-03] MEDS: Aspirin 81 MG TAB.CHEW PO (09:52)
[2024-03-03] MEDS: Carvedilol 12.5 MG Tablet PO (09:52)
[2024-03-03] MEDS: Carvedilol 25 MG Tablet PO (09:52)
[2024-03-03] MEDS: APIXABAN 2.5 MG TABLET (WCH) PO (09:52)
[2024-03-03] MEDS: dilTIAZem CD 120 MG Capsule PO (09:53)
[2024-03-03] MEDS: Escitalopram Oxalate 20 MG Tablet PO (09:53)
--- NOTE | 2024-03-03 10:40 | CASEMGMT ---
ROBBY KERN readmission note: Index Admission: Admitted 02/11 w/A-Fib/RVR. See this RN CM's admssion assess 02/11. Pt lives w/friend, Benita, in one-story home w/3 steps to enter. Independent. Pt given IV Cardizem, seen by cardiology, placed on oral Cardizem, and converted to NSR. Pt w/hx of Paroxysmal A-Fib and on chronic Eliquis. 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 Discharged home 02/11 w/new Rx for Cardizem. Pt to f/u with PCP in [address] Lehman w/in 3 weeks. Pt declined wanting [place]. Current admission: Admitted 03/03 w/A-Fib/RVR. ROBBY KERN to room. Pt resting in bed. Discussed readmission and any discharge needs/concerns. 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 She states she has seen her PCP since last admission and also NASH Grimes @ [facility] about a week ago. She denies having any discharge needs/concerns. Plan: Home Pt Link referral placed. Eduar ORO RN, CM
--- NOTE | 2024-03-03 12:31 | DCINST_ITS ---
Discharge Instructions Diet Discharge Diet: Low fat / Low cholesterol Activity Discharge Activity: Return to Normal Activity Dressing / Incision Call your doctor if you observe: Fever of 101 or Higher, Shortness of breath, Dizziness, Fainting spells, Swelling in the ankles, Chest pain and Increased palpitations (irregular heartbeat) Follow Up Care Test Results: Test results from this visit will be discussed in further detail at your follow- up appointment, if applicable. Discharge Plan Admission Admit Date/Time: 03/03/24 07:04 Attending Provider: Thomas Cast Primary Care Provider: Alek Chahal Discharge Orders/Prescriptions Prescriptions: New amiodarone 200 mg Tablet 200 mg PO DAILY 30 Days Qty: 60 0RF Rx Instructions: Take twice daily for 7 days then decrease to daily dosing Continued escitalopram oxalate 20 mg tablet 20 mg PO DAILY potassium chloride 10 mEq tablet extended release 10 meq PO DAILY Qty: 90 3RF aspirin [Arlet Chewable Aspirin] 81 mg tablet,chewable 1 tab PO DAILY alendronate 70 mg tablet 70 mg PO QWEEK atorvastatin 80 mg tablet See Rx Instructions .ROUTE .COMPLEX Qty: 90 3RF Dose Instruction: TAKE 1 TABLET AT BEDTIME Rx Instructions: TAKE 1 TABLET AT BEDTIME Eliquis 2.5 mg tablet See Rx Instructions .ROUTE .COMPLEX Qty: 180 3RF Dose Instruction: TAKE 1 TABLET TWICE DAILY Rx Instructions: TAKE 1 TABLET TWICE DAILY Entresto 24-26 mg tablet 1 tab PO BID Qty: 180 3RF carvedilol 25 mg tablet 25 mg PO .COMPLEX Qty: 180 3RF Rx Instructions: 25 mg orally Take a 25 mg tablet with a 12.5 mg tablet TWICE DAILY to = 37.5 TWICE A DAY; must administer with a meal/food carvedilol 12.5 mg tablet 12.5 mg PO .COMPLEX Qty: 180 3RF Rx Instructions: 12.5 mg orally Take with a 25 mg to = 37.5 mg TWICE a day; dose increased in hospital.; must administer with a meal/food Discontinued diltiazem HCl 120 mg Capsule,Extended Release 24hr 120 mg PO DAILY Qty: 30 0RF Rx Instructions: Start on 02/13/2024 No Action levothyroxine 112 MCG tablet 112 mcg PO DAILY PRN Rx Instructions: TAKES EVERY Wednesday & WEDNESDAY Referrals / Follow Up: Javier Lehman MD [Med Staff - Active Staff] - Within 1 Month Alek Chahal MD [Primary Care Provider] - Within 1 Week Disposition Disposition (needs filled in before D/C Order can be placed): Home, Self Care
--- NOTE | 2024-03-03 12:37 | PCM.HP.STD ---
HPI - General General Date of Admission: 03/03/24 HPI Narrative JENNY MARI, is a 83 F who presents to the hospital with palpitations and chest pain. She was recently admitted in January for similar presentation, at that time she had elevated troponins and cardiology was consulted and added Cardizem. In January she was not having chest pain at this time around she is though it has resolved since arriving to the hospital. Delta troponin was negative and EKG was nonischemic. Currently she is denying any chest pain or shortness of breath. She had an echo in [facility] with an EF of 40 to 45%, her baseline echocardiograms and this is institution of demonstrated stage II diastolic dysfunction and an RVSP of 48 mmHg. She did have a TSH that was checked on her last admission that was normal. [facility] Medical History Elevated troponin SVT (supraventricular tachycardia) Anemia Acute hyponatremia Atherosclerosis of coronary artery of [place] heart without angina pectoris PAF (paroxysmal atrial fibrillation) Nonrheumatic aortic (valve) stenosis Compression fracture Essential (primary) hypertension Premature ventricular beats Myocarditis Solar elastosis Arthritis Depression Right leg DVT Nonsustained paroxysmal ventricular tachycardia Non-ischemic cardiomyopathy Home Medications ?Medication ?Instructions ?Recorded ?Last Taken ?Type levothyroxine 112 mcg tablet 112 mcg PO DAILY PRN hypothroidism 02/17/20 04/21/23 History escitalopram oxalate 20 mg tablet 20 mg PO DAILY anxiety 07/29/21 04/23/23 History atorvastatin 80 mg tablet See Rx Instructions .Route 10/14/23 Unknown Rx .COMPLEX #90 tabs apixaban 2.5 mg tablet (Eliquis) See Rx Instructions .Route 11/01/23 Unknown Rx .COMPLEX #180 tabs sacubitril 24 mg-valsartan 26 mg 1 tab PO BID #180 tabs 11/29/23 Unknown Rx tablet (Entresto) carvedilol 12.5 mg tablet 12.5 mg PO .COMPLEX #180 tabs 02/09/24 Unknown Rx carvedilol 25 mg tablet 25 mg PO .COMPLEX waiting on mail 02/09/24 Unknown Rx in RX #180 tabs aspirin 81 mg chewable tablet 1 tab PO DAILY blood thinner 02/12/24 Unknown History (Arlet Chewable Low Dose Aspirin) potassium chloride 10 mEq 10 meq PO DAILY #90 tabs 02/18/24 Unknown Rx tablet,extended release alendronate 70 mg tablet 70 mg PO QWEEK 03/03/24 Unknown History amiodarone 200 mg tablet 200 mg PO DAILY 30 days #60 tabs 03/03/24 Unknown Rx Allergy/AdvReac Type Severity Reaction Status Date / Time imiquimod (From Aldara) Allergy Unknown Verified 03/03/24 03:27 Penicillins (PCN) Allergy Anaphylaxis Verified 03/03/24 03:27 amlodipine AdvReac Intermediate swelling Verified 03/03/24 03:27 in feet and legs dapagliflozin (From Farxiga) AdvReac Intermediate Lightheaded Verified 03/03/24 03:27 and faint ciprofloxacin (From Cipro) AdvReac Other Verified 03/03/24 03:27 furosemide AdvReac low saodium Verified 03/03/24 03:27 hydrochlorothiazide AdvReac hyponatremi Verified 03/03/24 03:27 a magnesium AdvReac Nausea Verified 03/03/24 03:27 prednisone AdvReac Upset Verified 03/03/24 03:27 Stomach Family History Mother Heart disease Father Heart disease Surgical History History of coronary artery stent placement (01/21/23) History of cataract surgery History of right hip replacement History of hysterectomy History of left heart catheterization (02/19/11) Social History household members: none Smoking Status: Former smoker how long ago did patient quit smokin years ago alcohol intake: current alcohol intake frequency: holidays/special occasions only substance use type: does not use caffeine: Yes Type: coffee Number of servings: 1 ROS Constitutional Constitutional: Denies chills, fatigue, fever(s) or malaise Eyes Eyes: Denies blurry vision ENT HEENT: Denies headache(s) or nasal discharge Cardiovascular Cardiovascular: Reports chest pain and palpitations; Denies dyspnea on exertion or syncope Respiratory/Chest Respiratory/Chest: Denies cough, shortness of breath at rest or shortness of breath with exertion Gastrointestinal Gastrointestinal: Denies constipation, diarrhea, nausea or vomiting Genitourinary Genitourinary: Denies dysuria Neurologic Neurologic: Denies focal weakness, numbness or tremor(s) Psychiatric Psychiatric: Denies anxiety or depression Vital Signs Vital Signs Vital Signs: 03/03/24 03:23 03/03/24 03:23 03/03/24 03:29 Temperature 97.9 F Temperature Source Temporal Pulse Rate 138 H Pulse Strength Respiratory Rate 25 H Respiratory Effort Short of Breath Respiratory Depth Respiratory Pattern Blood Pressure 121/89 H Blood Pressure Mean 99 Blood Pressure Source Blood Pressure Position Blood Pressure Location Pulse Ox 98 Oxygen Delivery Method Room Air Oxygen Flow Rate (L/min) 03/03/24 04:23 03/03/24 05:00 03/03/24 06:00 Temperature Temperature Source Pulse Rate 109 H 102 H 132 H Pulse Strength Respiratory Rate 21 H 20 H 16 Respiratory Effort Respiratory Depth Respiratory Pattern Blood Pressure 105/63 99/64 98/77 Blood Pressure Mean 77 75 84 Blood Pressure Source Blood Pressure Position Blood Pressure Location Pulse Ox 92 95 97 Oxygen Delivery Method Room Air Nasal Cannula Nasal Cannula Oxygen Flow Rate (L/min) 2 2 03/03/24 07:00 03/03/24 07:04 03/03/24 07:07 Temperature 98.3 F Temperature Source Pulse Rate 133 H 135 H 130 H Pulse Strength Respiratory Rate 17 25 H 23 H Respiratory Effort Respiratory Depth Respiratory Pattern Blood Pressure 108/95 H 108/95 H 105/95 H Blood Pressure Mean 99 99 98 Blood Pressure Source Blood Pressure Position Blood Pressure Location Pulse Ox 95 95 96 Oxygen Delivery Method Room Air Oxygen Flow Rate (L/min) 03/03/24 07:55 03/03/24 08:17 03/03/24 08:20 Temperature 97.8 F Temperature Source Temporal Pulse Rate 131 H Pulse Strength Normal (2+) Respiratory Rate 10 L Respiratory Effort Normal Non-Labored Respiratory Depth Normal Respiratory Pattern Normal Blood Pressure 98/68 Blood Pressure Mean 78 Blood Pressure Source Monitor Blood Pressure Position Semi-Fowlers Blood Pressure Location Right Arm Pulse Ox 97 Oxygen Delivery Method Room Air Room Air Oxygen Flow Rate (L/min) 03/03/24 08:30 03/03/24 08:45 03/03/24 09:00 Temperature Temperature Source Pulse Rate 127 H 132 H 128 H Pulse Strength Respiratory Rate 17 23 H 8 L Respiratory Effort Respiratory Depth Respiratory Pattern Blood Pressure 98/68 99/78 130/92 H Blood Pressure Mean 78 85 104 Blood Pressure Source Monitor Monitor Monitor Blood Pressure Position Semi-Fowlers Semi-Fowlers Semi-Fowlers Blood Pressure Location Right Arm Right Arm Right Arm Pulse Ox 97 96 96 Oxygen Delivery Method Room Air Room Air Room Air Oxygen Flow Rate (L/min) 03/03/24 09:15 03/03/24 09:30 03/03/24 10:00 Temperature Temperature Source Pulse Rate 122 H 122 H 72 Pulse Strength Respiratory Rate 11 L 12 17 Respiratory Effort Respiratory Depth Respiratory Pattern Blood Pressure 116/76 107/68 120/62 Blood Pressure Mean 89 81 81 Blood Pressure Source Monitor Monitor Monitor Blood Pressure Position Semi-Fowlers Semi-Fowlers Semi-Fowlers Blood Pressure Location Right Arm Right Arm Right Arm Pulse Ox 95 95 95 Oxygen Delivery Method Room Air Room Air Room Air Oxygen Flow Rate (L/min) 03/03/24 10:30 03/03/24 11:00 03/03/24 12:00 Temperature Temperature Source Pulse Rate 70 70 69 Pulse Strength Respiratory Rate 14 20 H 17 Respiratory Effort Respiratory Depth Respiratory Pattern Blood Pressure 110/65 101/54 L 110/64 Blood Pressure Mean 80 69 79 Blood Pressure Source Monitor Monitor Monitor Blood Pressure Position Semi-Fowlers Semi-Fowlers Semi-Fowlers Blood Pressure Location Right Arm Right Arm Right Arm Pulse Ox 95 95 95 Oxygen Delivery Method Room Air Room Air Room Air Oxygen Flow Rate (L/min) Weight Weight: 129 lb 10.109 oz Body Mass Index (BMI) 23.7 Physical Exam Narrative General: Alert, Oriented x3, Cooperative, No apparent distress HEENT: Atraumatic, PERRLA, EOMI, Normocephalic Oral: Moist Mucosa Neck: Supple, No JVD Lungs: Diminished, Normal air movement, No rhonchi, No wheeze, No rales Cardiovascular: Irregular rate and rhythm, Normal S1, Normal S2, No murmurs Abdomen: Soft, Non Tender, Non-Distended, No Hepato-splenomegaly Extremities: No edema, Capillary Refill Less than 3 Seconds Skin: No rashes, No breakdown Musculoskeletal: No Tenderness to Palpation of Joints or Extremities Neurological: No focal neurological deficits, Motor Exam 5/5 strength throughout, Sensory exam intact to light touch and pain Psych/Mental Status: Normal Affect, Appropriate Results Lab / Micro Data 03/03/24 03:32 03/03/24 03:32 Labs: Laboratory Results - last 24 hr 03/03/24 03:32: WBC 5.1, RBC 3.60 L, Hgb 11.1 L, Hct 34.5 L, MCV 95.8, MCH 30.8, MCHC 32.2, RDW Std Deviation 48.6 H, RDW Coeff of Tonie 13.7, Plt Count 178, MPV 11.8, Immature Gran % (Auto) 0.200, Neut % (Auto) 43.4 L, Lymph % (Auto) 45.7 H, [place] % (Auto) 7.6, Eos % (Auto) 2.7, Baso % (Auto) 0.4, Absolute Neuts (auto) 2.2, Absolute Lymphs (auto) 2.34, Nucleated RBC % 0, Sodium 138, Potassium 3.7, Chloride 104, Carbon Dioxide 23.0, Anion Gap 11, BUN 20 H, Creatinine 1.04 H, Estim Creat Clear Calc 31.28, Est GFR (MDRD) Af Amer 65, Est GFR (MDRD) Non-Af 54 L, BUN/Creatinine Ratio 19.2, Glucose 142 H, Calcium 9.1, Troponin I High Sens 15 03/03/24 05:56: Troponin I High Sens 17 Imaging Radiology Impression Chest X-Ray 03/03/24 03:29 IMPRESSION: Moderate cardiomegaly. Electronically Signed: Tres Waslh MD at 5:00 EDT Reading Location ID and State: [id number] [facility] Tel , Service support , Assessment & Plan Assessment/Plan (1) Atrial fibrillation with RVR: PLAN: Plan 1. A-fib with RVR/essential HTN/HLD/chronic combined systolic and diastolic CHF ? Will place her on an amiodarone drip as her blood pressures did drop with Cardizem boluses in the ER. Will resume her home Coreg ? Continue with Eliquis ? Per report from the ED physician, she did not want to be cardioverted ? Continue with Entresto ? Will hold off on echo as she had 1 in September ? Will not repeat a TSH as she had one less than a month ago 2. Hypothyroidism ? Stable ? TSH is normal ? Continue with Synthroid 3. Anxiety/depression ? Stable ? Continue with her home medications 4. Osteoporosis ? Stable ? Continue with bisphosphonate DVT: Darren 75 minutes was spent on direct patient care, including documentation as well as chart review and collaboration with colleagues Charges/Coding Visit Charges Inpatient E&M: 18394 Init Hosp L3
[2024-03-03] MEDS: Amiodarone 200 MG Tablet PO (13:02)
--- NOTE | 2024-03-03 14:00 | CHAPLAIN ---
Type of Pastoral Visit ___ Initial Visit ___ Follow-up Visit ___ On-call Visit ___ General Patient Visit ___ Spiritual Assessment ___ Family Conference ___ Bereavement ___ Rapid Response ___ Code Blue ___ Other (describe below) Pastoral Care Referral From ___ Patient ___ Family ___ Nurse ___ Physician ___ Workflow Developer ___ Refurbish Technician ___ Other (describe below) Sacrament/Intervention ___ Active listening ___ Anointing ___ Hoahaoism ___ Bereavement ___ Communion ___ [place] ___ ___ Life review ___ Prayer ___ Reconciliation ___ Sacrament of Sick ___ Supportive presence ___ Wedding ___ Other (describe below) Pastoral Comments patient was discharged before this diversity specialist had an opportunity to see her
--- NOTE | 2024-03-13 08:28 | CCN.REFER ---
VM LEFT ON 03/08 AND 03/10 W/ NO RETURNED CALL TO ARRANGE SETTING UP PATIENT LINK DEVICE IN HOME.
== END 2024-03-03 12:36 | disposition home or self-care (01) | DRG 309 ==
LOC: ED 07:06 → PCU 07:18
PROVIDERS: Admitting Provider Family Medicine; Emergency Provider Emergency Medicine; PCP Family Medicine; Visit Provider Family Medicine
DX: I48.0 Paroxysmal atrial fibrillation (principal); I50.42 Chronic combined systolic (congestive) and diastolic (congestive) heart failure; I11.0 Hypertensive heart disease with heart failure; E03.9 Hypothyroidism, unspecified; F32.A Depression, unspecified; I25.10 Atherosclerotic heart disease of native coronary artery without angina pectoris; E78.5 Hyperlipidemia, unspecified; F41.9 Anxiety disorder, unspecified; M81.0 Age-related osteoporosis without current pathological fracture; Z79.01 Long term (current) use of anticoagulants; Z79.82 Long term (current) use of aspirin; Z79.83 Long term (current) use of bisphosphonates; Z95.5 Presence of coronary angioplasty implant and graft; Z87.891 Personal history of nicotine dependence
CPT/HCPCS: 71045; 80048; 84484; 85025; 93005; 99285; J7030; J7050; A4216

== ENCOUNTER → 2024-03-13 | Outpatient (CLI) | payer MEDICARE, SELFPAY ==
[2023-05-07 08:38] VITALS: BMI 23.0
[2024-03-13 15:45] LABS: Anion Gap 7 (5-15); BUN 19 mg/dL (7-18); BUN/Creat Ratio 15.1 RATIO (10-20); Calcium,Total 8.4 mg/dL (8.5-10.1); Chloride 100 mmol/L (98-107); Creatinine, Serum 1.26 mg/dL (0.55-1.02); EST Glomerular Filtration Rate 43 mL/min (>60); Est Glom Filt Rate - Afr Amer 52 mL/min (>60); Glucose 96 mg/dL (74-106); Potassium 3.9 mmol/L (3.5-5.1); Sodium Level 134 mmol/L (136-145)
== END | disposition home or self-care (01) ==
PROVIDERS: PCP Family Medicine; Referring Provider Nurse Practitioner Family; Visit Provider Nurse Practitioner Family
DX: I48.0 Paroxysmal atrial fibrillation (principal); I25.10 Atherosclerotic heart disease of native coronary artery without angina pectoris; E87.1 Hypo-osmolality and hyponatremia
CPT/HCPCS: 36415; 80048

== ENCOUNTER 2024-03-31 21:02 | Inpatient (IN) | payer MEDICARE, SELFPAY ==
[2023-05-07 08:38] VITALS: BMI 23.0
[2024-03-31 21:03] VITALS: BP 155/95; PULSE 66; RESP 18; TEMP 38.3; O2SAT 95
[2024-03-31 21:11] VITALS: BMI 23.8
--- NOTE | 2024-03-31 21:24 | EKG12_ITS ---
Test Reason : DYSRHYTHMIA Blood Pressure : / mmHG Vent. Rate : 064 BPM Atrial Rate : 064 BPM P-R Int : 258 ms QRS Dur : 104 ms QT Int : 440 ms P-R-T Axes : 099 -04 063 degrees QTc Int : 453 ms Sinus rhythm with 1st degree A-V block Incomplete right bundle branch block Borderline ECG Confirmed by Ray Bey ([id number]), legal editor ROOPA BYERS ([id number]) on 04/03/2024 2:11:07 PM Referred By: Confirmed By:Ray Bey
[2024-03-31] MEDS: Acetaminophen 500 MG Tablet 1000 MG PO (21:35)
[2024-03-31] MEDS: 0.9% Normal Saline (1000mL) 1,000 ML 999 ML IV ×2 (21:36→22:22)
[2024-03-31 22:00] VITALS: O2SAT 94
[2024-03-31 22:04] VITALS: BP 167/74; PULSE 67; RESP 18; TEMP 36.9; O2SAT 91; O2SAT 92
--- NOTE | 2024-03-31 22:10 | RAD_ITS ---
STUDY: X-RAY CHEST REASON FOR EXAM: Female, 83 years old. cough TECHNIQUE: Frontal and lateral views of the chest. COMPARISON: 03/03/2024. FINDINGS: The lungs are hyperexpanded. There are coarsened interstitial markings suggestive of mild chronic fibrosis. Possible atelectasis or infiltrate in the right lung base. No gross effusions. There is mild cardiac enlargement. Normal mediastinum and linda. Normal visualized pulmonary arteries. There is atherosclerotic calcification of the aortic arch with tortuosity. There are diffuse degenerative changes of the visualized thoracic spine. Normal visualized ribs, clavicles, and shoulders. There is no demonstrated abnormality of the visualized soft tissue structures of the upper abdomen. RAD/Chest PA and Lateral IMPRESSION: COPD with fibrosis. Possible atelectasis or infiltrate of the right lung base. Electronically Signed: Dominick Mayo MD at 22:27 EDT ,
[2024-03-31 22:17] LABS: Absolute Lymphocyte Count 0.47 X10^3/uL (0.83-4.51); Absolute Neutrophil Count 4.8 X10^3/uL (2.0-7.7); Basophil# 0.01 X10^3/uL; Basophil% 0.2 % (0-1); Hematocrit 30.4 % (37-47); Lymphocyte # 0.47 X10^3/ul (0.83-4.51); Mean Corp Hgb Conc 32.9 g/dL (32-36); Mean Corpuscular Hgb 31.2 pg (27.0-32.0); Mean Corpuscular Volume 94.7 fL (81-99); Mean Platelet Vol. 11.7 fl (6.2-12.0); Monocyte# 0.57 X10^3/uL; Monocyte% 9.6 % (0-10); NRBC Flagged by Analyzer 0 % (0-5); Neutrophil # 4.83 X10^3/uL (2.7-7.7); Neutrophil % 81.7 % (47-70); POSITIVE DIFFERENTIAL YES; Platelet Count 146 K/mm3 (150-450); RBC Distribution Width CV 13.7 % (11.6-14.6); RBC Distribution Width SD 48.1 fl (35.1-43.9); Red Blood Count 3.21 M/mm3 (4.2-5.4); White Blood Count 5.9 K/mm3 (4.4-11.0)
[2024-03-31] MEDS: Ondansetron 4 MG/2 ML Vial IV (22:22)
[2024-03-31 22:28] VITALS: O2SAT 89
[2024-03-31 22:30] LABS: International Normalized Ratio 1.3; Prothrombin Time (Protime)PT. 15.8 SECONDS (11.7-14.9)
[2024-03-31 22:31] LABS: Partial Thromboplast Time 41.4 Seconds (24.1-36.2)
[2024-03-31 22:38] LABS: ALB/GLOB Ratio 0.8 RATIO (0.9-2.4); AST(SGOT) 56 U/L (15-37); Alanine Aminotransfer ALT/SGPT 64 U/L (13-56); Albumin, Serum 3.1 g/dL (3.2-5.0); Alkaline Phosphatase 46 U/L (45-117); Anion Gap 6 (5-15); BUN 17 mg/dL (7-18); BUN/Creat Ratio 17.4 RATIO (10-20); Calcium,Total 8.1 mg/dL (8.5-10.1); Chloride 93 mmol/L (98-107); Creatinine, Serum 0.98 mg/dL (0.55-1.02); EST Glomerular Filtration Rate 58 mL/min (>60); Est Glom Filt Rate - Afr Amer 70 mL/min (>60); Estimated Creatinine Clearance 33.19 ml/min; Globulin 3.8 g/dL (2.2-4.2); Glucose 119 mg/dL (74-106); Lactic Acid 0.8 mmol/L (0.4-1.9); Potassium 3.7 mmol/L (3.5-5.1); Protein, Total 6.9 g/dL (6.4-8.2); Sodium Level 126 mmol/L (136-145); Troponin-I HS 13 pg/mL (3.0-54.0)
--- NOTE | 2024-03-31 23:00 | ED.RN ---
ambulated to bathroom and back to room on RA. pt's spo2 was 84%. 2L NC reapplied.
[2024-03-31 23:07] VITALS: BP 139/94; PULSE 68; RESP 22; TEMP 36.8; O2SAT 96
[2024-03-31 23:18] LABS: Color, Urine Yellow (Yellow); Glucose, Dipstick Normal (Normal); Ketone-Dipstick Negative (Negative); Leukocyte Esterase-Dipstick Negative /ul (Negative); Nitrite-Dipstick Negative (Negative); Occult Blood-Urine 150 /ul (Negative); Protein-Dipstick 30 mg/dl (Negative); Specific Gravity, Urine 1.015 (1.002-1.030); Urine Bilirubin Dipstick Negative (Negative); Urine Clarity Clear (Clear); Urine Urobilinogen Normal (Normal)
[2024-03-31 23:29] LABS: Bacteria 1+ /hpf (None Seen); Mucous, Urine RARE /hpf (<or=2+); Red Blood Cells-Urine 10-25 SEEN /hpf (0-5); Squamous Epithelial Cells - UA 0-5 SEEN /hpf (5-10); White Blood Cells 0-5 SEEN /hpf (0-5)
[2024-04-01] VITALS (12 sets, daily range): BP systolic 131–153; BP diastolic 63–78; PULSE 55–70; RESP 15–22; TEMP 36.4–37.1; O2SAT 95–99; BMI 24.2
--- NOTE | 2024-04-01 00:25 | EX.ED.DYSGE1 ---
HPI History of Present Illness Chief Complaint: General Illness Narrative Narrative: Patient is a 83-year-old female with past medical history of DVT on Eliquis, paroxysmal atrial fibrillation, anemia, SVT, hypertension, depression who presented to the emergency department with a chief complaint of fever, and generalized fatigue and not feeling well for the last several days. She notes that family bedside was ill earlier in the week on Wednesday however quickly got over this. She states that she feels like she is getting worse instead of better therefore prompting her to come here for further evaluation management. [facility] Medical History Hip fracture requiring operative repair Elevated troponin SVT (supraventricular tachycardia) Anemia Acute hyponatremia Atherosclerosis of coronary artery of [place] heart without angina pectoris PAF (paroxysmal atrial fibrillation) Nonrheumatic aortic (valve) stenosis Compression fracture Essential (primary) hypertension Premature ventricular beats Myocarditis Solar elastosis Arthritis Depression Right leg DVT Nonsustained paroxysmal ventricular tachycardia Non-ischemic cardiomyopathy Home Medications ?Medication ?Instructions ?Recorded ?Last Taken ?Type levothyroxine 112 mcg tablet 112 mcg PO QODAY hypothroidism 02/17/20 03/31/24 History escitalopram oxalate 20 mg tablet 20 mg PO DAILY anxiety 07/29/21 04/23/23 History atorvastatin 80 mg tablet See Rx Instructions .Route 10/14/23 Unknown Rx .COMPLEX cholesterol #90 tabs apixaban 2.5 mg tablet (Eliquis) See Rx Instructions .Route 11/01/23 Unknown Rx .COMPLEX blood thinner #180 tabs carvedilol 12.5 mg tablet 12.5 mg PO .COMPLEX heart rate 02/09/24 Unknown Rx #180 tabs carvedilol 25 mg tablet 25 mg PO .COMPLEX waiting on mail 02/09/24 Unknown Rx in RX #180 tabs aspirin 81 mg chewable tablet 1 tab PO DAILY heart health 02/12/24 Unknown History (Arlet Chewable Low Dose Aspirin) alendronate 70 mg tablet 70 mg PO TU bone health 03/03/24 Unknown History amiodarone 200 mg tablet 200 mg PO DAILY 30 days #60 tabs 03/03/24 Unknown Rx potassium chloride 10 mEq 20 meq (2 x 10 mEq) PO DAILY #0 03/06/24 Unknown Rx tablet,extended release tabs sacubitril 24 mg-valsartan 26 mg 1 tab PO BID #180 tabs 03/13/24 Unknown Rx tablet (Entresto) furosemide 40 mg tablet 40 mg PO QDAY PRN edema #90 tabs 03/21/24 Unknown Rx levothyroxine 100 mcg tablet 100 mcg PO QODAY 03/31/24 03/30/24 History Allergy/AdvReac Type Severity Reaction Status Date / Time imiquimod (From Aldara) Allergy Unknown Verified 03/31/24 21:02 Penicillins (PCN) Allergy Anaphylaxis Verified 03/31/24 21:02 amlodipine AdvReac Intermediate swelling Verified 03/31/24 21:02 in feet and legs dapagliflozin (From Farxiga) AdvReac Intermediate Lightheaded Verified 03/31/24 21:02 and faint ciprofloxacin (From Cipro) AdvReac Other Verified 03/31/24 21:02 furosemide AdvReac low saodium Verified 03/31/24 21:02 hydrochlorothiazide AdvReac hyponatremi Verified 03/31/24 21:02 a magnesium AdvReac Nausea Verified 03/31/24 21:02 prednisone AdvReac Upset Verified 03/31/24 21:02 Stomach Family History Mother Heart disease Father Heart disease Surgical History History of coronary artery stent placement (01/21/23) History of cataract surgery History of right hip replacement History of hysterectomy History of left heart catheterization (02/19/11) Social History household members: none Smoking Status: Former smoker how long ago did patient quit smokin years ago alcohol intake: current alcohol intake frequency: holidays/special occasions only substance use type: does not use caffeine: Yes Type: coffee Number of servings: 1 ROS ROS ED ROS Narrative Constitutional: Complains of fever as noted above is not headache denies any lightheadedness or dizziness Eyes: Denies change in vision double vision blurry vision Cardiovascular: Denies chest pain or palpitations Respiratory: Denies cough or wheezing shortness of breath Abdomen: Complains of nausea, denies abdominal pain, vomiting : Denies any painful urination, hematuria, polyuria Neurological: Denies numbness, weakness, tingling Musculoskeletal: Denies back pain Skin: Denies rashes or lesions EXAM Physical Exam Narrative Exam Narrative: General: Patient lying in bed rest comfortably did not appear to be acute distress Head: Atraumatic, normocephalic Eyes: PERRL bilaterally, EOMI bilaterally, no conjunctival injection noted Neck: Soft, supple, trachea midline Cardiovascular: Regular rate and rhythm no murmurs gallops rubs noted Respiratory: Clear to auscultation bilaterally no rales rhonchi or wheeze noted Abdomen: No tenderness palpation, soft, nondistended Extremities: +5/5 strength noted in the bilateral upper and lower extremities, no pedal edema on exam Neurological: Patient follow commands and that she is at [facility] year is 2023 Skin: Warm, dry, intact Const Vital Signs: 03/31/24 21:03 03/31/24 21:11 03/31/24 22:04 Temperature 101 F H 98.4 F Temperature Source Oral Oral Pulse Rate 66 67 Respiratory Rate 18 18 Respiratory Effort Normal Respiratory Pattern Normal Blood Pressure 155/95 H 167/74 H Blood Pressure Mean 115 105 Pulse Ox 95 91 Oxygen Delivery Method Room Air Room Air Oxygen Flow Rate (L/min) 03/31/24 22:04 03/31/24 22:28 03/31/24 23:07 Temperature 98.2 F Temperature Source Oral Pulse Rate 68 Respiratory Rate 22 H Respiratory Effort Respiratory Pattern Blood Pressure 139/94 H Blood Pressure Mean 106 Pulse Ox 92 89 96 Oxygen Delivery Method Room Air Room Air Nasal Cannula Oxygen Flow Rate (L/min) 2 MDM MDM MDM Narrative Medical decision making narrative: Patient is a 83-year-old female who presented to the emergency department chief complaint of cough, fever and generalized fatigue not feeling well. Patient will have a workup performed here on the differential diagnose includes but not limited to ACS, pneumonia, UTI, upper respiratory infection secondary to viral etiology. Once workup is obtained reviewed she will be reevaluated Patient's a CBC reviewed showed no evidence leukocytosis white blood count was normal at 5.9, hemoglobin stable at 10.0, platelet count noted to be 146. Patient's INR normal at 1.3, PT elevated 15.8 she is on Eliquis, sodium was noted be hyponatremic at 126, potassium normal 3.7, creatinine normal at 0.98. Patient's AST and ALT were 56 and 64 respectively. Patient's urinalysis did not reveal any evidence of infection. Patient's chest x-ray was reviewed and showed COPD with fibrosis possible atelectasis or infiltrate of the right lung base. Patient did note that she is coughing some stuff up therefore we will give her ceftriaxone azithromycin prophylactically for pneumonia. Patient did test positive here for COVID-19. Patient did become hypoxic on room air to 88% therefore she will be given dose of Decadron here in the emergency department with her COVID-19 infection and was placed on nasal cannula. Given that she is not normally on oxygen at home do feel that she will warrant admission for her hypoxia, COVID-19, pneumonia and hyponatremia. Did discuss these with the patient she is agreeable with the plan. Did discuss case with hospitalist who accept patient for admission. Patient was notified that she will be admitted. Lab Data Labs: Laboratory Results - last 24 hr 03/31/24 03/31/24 21:47 22:55 WBC 5.9 RBC 3.21 L Hgb 10.0 L Hct 30.4 L MCV 94.7 MCH 31.2 MCHC 32.9 RDW Std Deviation 48.1 H RDW Coeff of Tonie 13.7 Plt Count 146 L MPV 11.7 Immature Gran % (Auto) 0.500 Neut % (Auto) 81.7 H Lymph % (Auto) 8.0 L [place] % (Auto) 9.6 Eos % (Auto) 0.0 Baso % (Auto) 0.2 Absolute Neuts (auto) 4.8 Absolute Lymphs (auto) 0.47 L Nucleated RBC % 0 PT 15.8 H INR 1.3 APTT 41.4 H Sodium 126 L Potassium 3.7 Chloride 93 L Carbon Dioxide 27.0 Anion Gap 6 BUN 17 Creatinine 0.98 Estim Creat Clear Calc 33.19 Est GFR (MDRD) Af Amer 70 Est GFR (MDRD) Non-Af 58 L BUN/Creatinine Ratio 17.4 Glucose 119 H Lactic Acid 0.8 Calcium 8.1 L Total Bilirubin 0.50 AST 56 H ALT 64 H Alkaline Phosphatase 46 Troponin I High Sens 13 Total Protein 6.9 Albumin 3.1 L Globulin 3.8 Albumin/Globulin Ratio 0.8 L Urine Color Yellow Urine Clarity Clear Urine pH 6.0 Ur Specific Agness 1.015 Urine Protein 30 H Urine Glucose (UA) Normal Urine Ketones Negative Urine Occult Blood 150 H Urine Nitrite Negative Urine Bilirubin Negative Urine Urobilinogen Normal Ur Leukocyte Esterase Negative Urine RBC 10-25 SEEN Urine WBC 0-5 SEEN Ur Squamous Epith Cells 0-5 SEEN Urine Bacteria 1+ Urine Mucus RARE Radiography Diagnostic Testing: Clinical Impression(s) from Imaging Studies Chest X-Ray 03/31/24 22:10 IMPRESSION: COPD with fibrosis. Possible atelectasis or infiltrate of the right lung base. Electronically Signed: Dominick Mayo MD at 22:27 EDT , Discharge Plan Triage Chief Complaint: General Illness ED Provider: Marcos Cole Dx/Rx/DC Orders Prescriptions: No Action escitalopram oxalate 20 mg tablet 20 mg PO DAILY levothyroxine 112 MCG tablet 112 mcg PO QODAY Rx Instructions: every other day aspirin [Arlet Chewable Aspirin] 81 mg tablet,chewable 1 tab PO DAILY alendronate 70 mg tablet 70 mg PO TU amiodarone 200 mg Tablet 200 mg PO DAILY 30 Days Qty: 60 0RF Rx Instructions: Take twice daily for 7 days then decrease to daily dosing levothyroxine 100 mcg tablet 100 mcg PO QODAY atorvastatin 80 mg tablet See Rx Instructions .ROUTE .COMPLEX Qty: 90 3RF Dose Instruction: TAKE 1 TABLET AT BEDTIME Rx Instructions: TAKE 1 TABLET AT BEDTIME Eliquis 2.5 mg tablet See Rx Instructions .ROUTE .COMPLEX Qty: 180 3RF Dose Instruction: TAKE 1 TABLET TWICE DAILY Rx Instructions: TAKE 1 TABLET TWICE DAILY carvedilol 25 mg tablet 25 mg PO .COMPLEX Qty: 180 3RF Rx Instructions: 25 mg orally Take a 25 mg tablet with a 12.5 mg tablet TWICE DAILY to = 37.5 TWICE A DAY; must administer with a meal/food carvedilol 12.5 mg tablet 12.5 mg PO .COMPLEX Qty: 180 3RF Rx Instructions: 12.5 mg orally Take with a 25 mg to = 37.5 mg TWICE a day; dose increased in hospital.; must administer with a meal/food potassium chloride 10 mEq tablet extended release 20 meq PO DAILY Qty: 0 0RF Entresto 24-26 mg tablet 1 tab PO BID Qty: 180 3RF furosemide 40 mg tablet 40 mg PO QDAY PRN (Reason: edema) Qty: 90 0RF Primary Care Provider: Alek Chahal Referrals: Alek Chahal MD [Primary Care Provider] - Print Language: [place]
[2024-04-01] MEDS: dexAMETHasone 4 MG Tablet 6 MG PO (00:26)
--- NOTE | 2024-04-01 00:44 | HP.PCM.HOS_ITS ---
[facility] - General General Date of Service: 04/01/24 Chief Complaint: Shortness of breath [facility] Narrative JENNY MARI, is a 83 F who presents with shortness of breath. Is an 83-year-old female with a history of pulmonary fibrosis new diagnosis of paroxysmal atrial fibrillation presents with a 3-day history of mild shortness of breath. Also start developing fever at the end. She presented to the emergency room and her oxygenation was 89%. She was put on 2 L nasal cannula and her pulse ox increased to 98%. She had a chest x-ray that showed chronic fibrotic changes but she did receive aztreonam x 1. She was also positive for COVID-19 and did receive 6 mg of dexamethasone. She is being hospitalized and admitted for further treatment of her respiratory failure and COVID-19. [facility] Medical History Hip fracture requiring operative repair Elevated troponin SVT (supraventricular tachycardia) Anemia Acute hyponatremia Atherosclerosis of coronary artery of [place] heart without angina pectoris PAF (paroxysmal atrial fibrillation) Nonrheumatic aortic (valve) stenosis Compression fracture Essential (primary) hypertension Premature ventricular beats Myocarditis Solar elastosis Arthritis Depression Right leg DVT Nonsustained paroxysmal ventricular tachycardia Non-ischemic cardiomyopathy Home Medications ?Medication ?Instructions ?Recorded ?Last Taken ?Type levothyroxine 112 mcg tablet 112 mcg PO QODAY hypothroidism 02/17/20 03/31/24 History escitalopram oxalate 20 mg tablet 20 mg PO DAILY anxiety 07/29/21 04/23/23 History atorvastatin 80 mg tablet See Rx Instructions .Route 10/14/23 Unknown Rx .COMPLEX cholesterol #90 tabs apixaban 2.5 mg tablet (Eliquis) See Rx Instructions .Route 11/01/23 Unknown Rx .COMPLEX blood thinner #180 tabs carvedilol 12.5 mg tablet 12.5 mg PO .COMPLEX heart rate 02/09/24 Unknown Rx #180 tabs carvedilol 25 mg tablet 25 mg PO .COMPLEX waiting on mail 02/09/24 Unknown Rx in RX #180 tabs aspirin 81 mg chewable tablet 1 tab PO DAILY heart health 02/12/24 Unknown History (Arlet Chewable Low Dose Aspirin) alendronate 70 mg tablet 70 mg PO bone health 03/03/24 Unknown History amiodarone 200 mg tablet 200 mg PO DAILY 30 days #60 tabs 03/03/24 Unknown Rx potassium chloride 10 mEq 20 meq (2 x 10 mEq) PO DAILY #0 03/06/24 Unknown Rx tablet,extended release tabs sacubitril 24 mg-valsartan 26 mg 1 tab PO BID #180 tabs 03/13/24 Unknown Rx tablet (Entresto) furosemide 40 mg tablet 40 mg PO QDAY PRN edema #90 tabs 03/21/24 Unknown Rx levothyroxine 100 mcg tablet 100 mcg PO QODAY 03/31/24 03/30/24 History Allergy/AdvReac Type Severity Reaction Status Date / Time imiquimod (From Aldara) Allergy Unknown Verified 03/31/24 21:02 Penicillins (PCN) Allergy Anaphylaxis Verified 03/31/24 21:02 amlodipine AdvReac Intermediate swelling Verified 03/31/24 21:02 in feet and legs dapagliflozin (From Farxiga) AdvReac Intermediate Lightheaded Verified 03/31/24 21:02 and faint ciprofloxacin (From Cipro) AdvReac Other Verified 03/31/24 21:02 furosemide AdvReac low saodium Verified 03/31/24 21:02 hydrochlorothiazide AdvReac hyponatremi Verified 03/31/24 21:02 a magnesium AdvReac Nausea Verified 03/31/24 21:02 prednisone AdvReac Upset Verified 03/31/24 21:02 Stomach Family History Mother Heart disease Father Heart disease Surgical History History of coronary artery stent placement (01/21/23) History of cataract surgery History of right hip replacement History of hysterectomy History of left heart catheterization (02/19/11) Social History household members: none Smoking Status: Former smoker how long ago did patient quit smokin years ago alcohol intake: current alcohol intake frequency: holidays/special occasions only substance use type: does not use caffeine: Yes Type: coffee Number of servings: 1 ROS ROS Narrative Coughing. Minimally productive cough. No chest pain no abdominal pain. All review of systems were negative except as mentioned above in the history of present illness and the other review of systems. Vital Signs Vital Signs Vital Signs: 03/31/24 21:03 03/31/24 21:11 03/31/24 22:04 Temperature 38.3 C H 36.9 C Temperature Source Oral Oral Pulse Rate 66 67 Respiratory Rate 18 18 Respiratory Effort Normal Respiratory Pattern Normal Blood Pressure 155/95 H 167/74 H Blood Pressure Mean 115 105 Pulse Ox 95 91 Oxygen Delivery Method Room Air Room Air Oxygen Flow Rate (L/min) 03/31/24 22:04 03/31/24 22:28 03/31/24 23:07 Temperature 36.8 C Temperature Source Oral Pulse Rate 68 Respiratory Rate 22 H Respiratory Effort Respiratory Pattern Blood Pressure 139/94 H Blood Pressure Mean 106 Pulse Ox 92 89 96 Oxygen Delivery Method Room Air Room Air Nasal Cannula Oxygen Flow Rate (L/min) 2 04/01/24 00:00 04/01/24 00:37 Temperature 36.8 C 36.8 C Temperature Source Oral Pulse Rate 70 70 Respiratory Rate 22 H 22 H Respiratory Effort Respiratory Pattern Blood Pressure 152/66 H 152/66 H Blood Pressure Mean 94 94 Pulse Ox 99 99 Oxygen Delivery Method Nasal Cannula Oxygen Flow Rate (L/min) 2 Weight Weight: 59.194 kg Body Mass Index (BMI) 23.8 Physical Exam Narrative - Physical Exam General: Alert, Oriented x3, Cooperative HEENT: Atraumatic, Normocephalic, no icterus. Oral: Moist Mucosa, No Gingival or Mucosal Lesions/ Ulcerations Neck: Supple, No JVD, Negative Carotid Bruits Lungs: Right-sided crackles. Cardiovascular: Regular rate, Normal S1, Normal S2, No murmurs Abdomen: Bowel Sounds Present, Soft, Non Tender, Non-Distended, No Hepato- splenomegaly Extremities: No clubbing, No cyanosis, No edema, Capillary Refill Less than 3 Seconds Skin: No rashes, No breakdown Musculoskeletal: No Tenderness to Palpation of Joints or Extremities Neurological: Neuro grossly intact Psych/Mental Status: Normal Affect, Appropriate Results Lab / Micro Data Attestation: I reviewed the patient's lab results. 03/31/24 21:47 03/31/24 21:47 Labs: Laboratory Results - last 24 hr 03/31/24 21:47: WBC 5.9, RBC 3.21 L, Hgb 10.0 L, Hct 30.4 L, MCV 94.7, MCH 31.2, MCHC 32.9, RDW Std Deviation 48.1 H, RDW Coeff of [place]ie 13.7, Plt Count 146 L, MPV 11.7, Immature Gran % (Auto) 0.500, Neut % (Auto) 81.7 H, Lymph % (Auto) 8.0 L, [place] % (Auto) 9.6, Eos % (Auto) 0.0, Baso % (Auto) 0.2, Absolute Neuts (auto) 4.8, Absolute Lymphs (auto) 0.47 L, Nucleated RBC % 0, PT 15.8 H, INR 1.3, APTT 41.4 H, Sodium 126 L, Potassium 3.7, Chloride 93 L, Carbon Dioxide 27.0, Anion Gap 6, BUN 17, Creatinine 0.98, Estim Creat Clear Calc 33.19, Est GFR (MDRD) Af Amer 70, Est GFR (MDRD) Non-Af 58 L, BUN/Creatinine Ratio 17.4, Glucose 119 H, Lactic Acid 0.8, Calcium 8.1 L, Total Bilirubin 0.50, AST 56 H, ALT 64 H, Alkaline Phosphatase 46, Troponin I High Sens 13, Total Protein 6.9, Albumin 3.1 L, Globulin 3.8, Albumin/Globulin Ratio 0.8 L 03/31/24 22:55: Urine Color Yellow, Urine Clarity Clear, Urine pH 6.0, Ur Specific [place] 1.015, Urine Protein 30 H, Urine Glucose (UA) Normal, Urine Ketones Negative, Urine Occult Blood 150 H, Urine Nitrite Negative, Urine Bilirubin Negative, Urine Urobilinogen Normal, Ur Leukocyte Esterase Negative, Urine RBC 10-25 SEEN, Urine WBC 0-5 SEEN, Ur Squamous Epith Cells 0-5 SEEN, Urine Bacteria 1+, Urine Mucus RARE Micro: Microbiology 03/31/24 21:55 Mucosa - Nose SARS-CoV-2, Influenza & RSV (PCR) - Final SARS-CoV-2 (COVID 19) EKG Initial EKG: Attestation: I personally reviewed and interpreted this EKG as follows: Prior EKG tracings: available for review EKG Rhythm Intrepretation: Sinus Rhythm Imaging Radiology Impression Chest X-Ray 03/31/24 22:10 IMPRESSION: COPD with fibrosis. Possible atelectasis or infiltrate of the right lung base. Electronically Signed: Dominick Mayo MD at 22:27 EDT , Assessment & Plan Assessment/Plan (1) COVID-19: PLAN: Onset would have been March 29. Chest x-ray, my evaluation, appears unchanged from baseline. So I do not feel that she has a new infiltrate so we will hold off any additional antibiotics (patient received 1 dose of aztreonam in the ED) Will treat her for COVID-19 with 2 mg of dexamethasone for total of 10 days and remdesivir. (2) Respiratory insufficiency: PLAN: Secondary to COVID-19 and chronic pulmonary fibrosis. Patient has had these fibrotic changes prior to initiating amiodarone. Would advise patient to follow-up with pulmonology as outpatient. Wean oxygen as tolerated (3) Hyponatremia: PLAN: Unclear reason why she is hyponatremic at this time She is receiving IV fluids in the emergency room Plan is to follow-up her sodium in the morning. Check TSH, random cortisol, serum osmolality, urine osmolality and urine urea. PLAN: Plan Chronic conditions * Paroxysmal atrial fibrillation: Continue with amiodarone, carvedilol and anticoagulation with apixaban * History of CAD: Stable. Continue with aspirin and statin * Depression continue with escitalopram VTE prophylaxis: Not indicated as patient is already anticoagulated. CODE STATUS: Addressed with the patient. Patient wishes to be full code. Charges/Coding Visit Charges Inpatient E&M: 45053 Init Hosp L3
--- NOTE | 2024-04-01 01:38 | ED.RN ---
applied mask for pt transport to the floor. pt c/o tightening of her throat and difficulty breathing. no swelling noted to tongue or mouth. no hives noted on integumentary exam. spo2 100% on 2L; her norm this visit. discussed w/dr ho. del oates'marc. pt already given decadron for inflammation. transfer pt to [facility]3 and continue plan of care.
[2024-04-01 01:58] LABS: Urea Nitrogen, Urine 1108 mg/dL (NO RANGE EST.)
[2024-04-01] MEDS: Remdesivir 200 MG in 0.9% Normal Saline (250mL Bag) 210 ML 250 MG IV (02:22)
[2024-04-01] MEDS: 0.9% Normal Saline (250mL Bag) 250 ML 15 ML IV (02:22)
[2024-04-01] MEDS: guaiFENesin 10 ML UDC (200MG/10ML) 5 ML PO ×2 (03:55→15:58)
[2024-04-01] MEDS: Acetaminophen 325 MG Tablet 650 MG PO ×2 (03:55→15:59)
[2024-04-01] MEDS: 0.9% Saline Lock 10 ML Syringe IV (03:56)
[2024-04-01] MEDS: Ipratropium/Albuterol Sulfate 3 ML AMPUL.NEB INHALATION ×3 (07:11→19:16)
[2024-04-01 07:56] LABS: Absolute Lymphocyte Count 0.34 X10^3/uL (0.83-4.51); Hematocrit 29.7 % (37-47); Hemoglobin 9.8 g/dL (12.0-15.0); Lymphocyte # 0.34 X10^3/ul (0.83-4.51); Lymphocyte % 7.5 % (19-41); Mean Corpuscular Hgb 31.2 pg (27.0-32.0); Mean Corpuscular Volume 94.6 fL (81-99); Mean Platelet Vol. 11.1 fl (6.2-12.0); Monocyte# 0.11 X10^3/uL; Monocyte% 2.4 % (0-10); NRBC Flagged by Analyzer 0 % (0-5); Neutrophil # 4.02 X10^3/uL (2.7-7.7); Neutrophil % 89.2 % (47-70); POSITIVE DIFFERENTIAL YES; Platelet Count 141 K/mm3 (150-450); RBC Distribution Width CV 13.8 % (11.6-14.6); RBC Distribution Width SD 47.2 fl (35.1-43.9); Red Blood Count 3.14 M/mm3 (4.2-5.4); White Blood Count 4.5 K/mm3 (4.4-11.0)
[2024-04-01 08:37] LABS: ALB/GLOB Ratio 0.7 RATIO (0.9-2.4); AST(SGOT) 79 U/L (15-37); Alanine Aminotransfer ALT/SGPT 90 U/L (13-56); Albumin, Serum 2.6 g/dL (3.2-5.0); Alkaline Phosphatase 45 U/L (45-117); Anion Gap 5 (5-15); BUN 13 mg/dL (7-18); BUN/Creat Ratio 14.7 RATIO (10-20); Calcium,Total 7.6 mg/dL (8.5-10.1); Chloride 100 mmol/L (98-107); Creatinine, Serum 0.89 mg/dL (0.55-1.02); EST Glomerular Filtration Rate 64 mL/min (>60); Est Glom Filt Rate - Afr Amer 78 mL/min (>60); Estimated Creatinine Clearance 36.55 ml/min; Globulin 3.7 g/dL (2.2-4.2); Glucose 137 mg/dL (74-106); Potassium 4.1 mmol/L (3.5-5.1); Protein, Total 6.3 g/dL (6.4-8.2); Sodium Level 129 mmol/L (136-145); Thyroid Stim Hormone (TSH) 0.65 uIU/mL (0.358-3.74)
[2024-04-01] MEDS: Carvedilol 12.5 MG Tablet 37.5 MG PO ×2 (08:56→15:58)
[2024-04-01] MEDS: Potassium Chloride Oral Tablet 20 MEQ PO (08:56)
[2024-04-01] MEDS: Escitalopram Oxalate 20 MG Tablet PO (08:56)
[2024-04-01] MEDS: Amiodarone 200 MG Tablet PO (08:57)
[2024-04-01] MEDS: Aspirin 81 MG TAB.CHEW PO (08:57)
[2024-04-01] MEDS: Levothyroxine 100 MCG Tablet PO (08:57)
[2024-04-01] MEDS: SACUBITRIL/VALSARTAN 24/26 MG TABLET 1 EACH PO ×2 (08:57→21:50)
[2024-04-01] MEDS: APIXABAN 2.5 MG TABLET (WCH) PO ×2 (08:57→21:50)
--- NOTE | 2024-04-01 10:28 | PCM.PN.HOSP ---
Reason for Visit Reason for Visit: Diagnoses Hypo-osmolality and hyponatremia (04/01/24) Other abnormalities of breathing (04/01/24) COVID-19 (04/01/24) Subjective Subjective Patient admitted overnight with worsening shortness of breath and fevers. Found to be positive for COVID-19 in the ED. Given doses of IV Decadron, remdesivir and Tylenol and admitted for further management. Saw patient at bedside this morning. Patient was sitting up comfortably in bedside chair, in no acute distress. Patient appeared well this morning, breathing comfortably on room air. Patient was fully dressed in her normal clothes. Stated that she felt significantly better this morning compared to the last few days. She denied any shortness of breath at rest or with exertion around the room. She had not worked with physical therapy yet when I saw her. She denied any fevers or chills. Denied any cough or sputum production. No other new concerns this morning. Objective Data Objective Data Vital Signs: Vital Signs Temp Pulse Resp BP Pulse Ox O2 Del Method O2 Flow Rate 97.5 F L 56 L 18 131/63 H 96 Room Air 1 04/01/24 07:50 04/01/24 07:50 04/01/24 07:50 04/01/24 07:50 04/01/24 08:49 04/01/24 07:50 04/01/24 08:49 Oxygen Flow Rate (L/min) 1 Oxygen Delivery Method Room Air Weight: 60 kg Body Mass Index (BMI) 24.2 Intake & Output: Intake and Output for Last 24 Hours 03/30/24 03/31/24 04/01/24 23:59 23:59 23:59 Intake Total 1765.9 / 1765.9 262.5 / 262.5 Balance 1765.9 / 1765.9 262.5 / 262.5 Lab / Micro Data 04/01/24 07:35 04/01/24 07:35 Labs: Laboratory Results - last 24 hr 03/31/24 21:47: WBC 5.9, RBC 3.21 L, Hgb 10.0 L, Hct 30.4 L, MCV 94.7, MCH 31.2, MCHC 32.9, RDW Std Deviation 48.1 H, RDW Coeff of Tonie 13.7, Plt Count 146 L, MPV 11.7, Immature Gran % (Auto) 0.500, Neut % (Auto) 81.7 H, Lymph % (Auto) 8.0 L, [place] % (Auto) 9.6, Eos % (Auto) 0.0, Baso % (Auto) 0.2, Absolute Neuts (auto) 4.8, Absolute Lymphs (auto) 0.47 L, Nucleated RBC % 0, PT 15.8 H, INR 1.3, APTT 41.4 H, Sodium 126 L, Potassium 3.7, Chloride 93 L, Carbon Dioxide 27.0, Anion Gap 6, BUN 17, Creatinine 0.98, Estim Creat Clear Calc 33.19, Est GFR (MDRD) Af Amer 70, Est GFR (MDRD) Non-Af 58 L, BUN/Creatinine Ratio 17.4, Glucose 119 H, Lactic Acid 0.8, Calcium 8.1 L, Total Bilirubin 0.50, AST 56 H, ALT 64 H, Alkaline Phosphatase 46, Troponin I High Sens 13, Total Protein 6.9, Albumin 3.1 L, Globulin 3.8, Albumin/Globulin Ratio 0.8 L 03/31/24 22:55: Urine Color Yellow, Urine Clarity Clear, Urine pH 6.0, Ur Specific [place] 1.015, Urine Protein 30 H, Urine Glucose (UA) Normal, Urine Ketones Negative, Urine Occult Blood 150 H, Urine Nitrite Negative, Urine Bilirubin Negative, Urine Urobilinogen Normal, Ur Leukocyte Esterase Negative, Urine RBC 10-25 SEEN, Urine WBC 0-5 SEEN, Ur Squamous Epith Cells 0-5 SEEN, Urine Bacteria 1+, Urine Mucus RARE, Urine Creatinine 173.00, Urine Urea Nitrogen 1108 04/01/24 07:35: WBC 4.5, RBC 3.14 L, Hgb 9.8 L, Hct 29.7 L, MCV 94.6, MCH 31.2, MCHC 33.0, RDW Std Deviation 47.2 H, RDW Coeff of [place]ie 13.8, Plt Count 141 L, MPV 11.1, Immature Gran % (Auto) 0.900, Neut % (Auto) 89.2 H, Lymph % (Auto) 7.5 L, [place] % (Auto) 2.4, Eos % (Auto) 0.0, Baso % (Auto) 0.0, Absolute Neuts (auto) 4.0, Absolute Lymphs (auto) 0.34 L, Nucleated RBC % 0, Sodium 129 L, Potassium 4.1, Chloride 100, Carbon Dioxide 24.0, Anion Gap 5, BUN 13, Creatinine 0.89, Estim Creat Clear Calc 36.55, Est GFR (MDRD) Af Amer 78, Est GFR (MDRD) Non-Af 64, BUN/Creatinine Ratio 14.7, Glucose 137 H, Calcium 7.6 L, Total Bilirubin 0.40, AST 79 H, ALT 90 H, Alkaline Phosphatase 45, Total Protein 6.3 L, Albumin 2.6 L, Globulin 3.7, Albumin/Globulin Ratio 0.7 L, TSH 0.65 Micro: Microbiology 03/31/24 21:55 Mucosa - Nose SARS-CoV-2, Influenza & RSV (PCR) - Final SARS-CoV-2 (COVID 19) Radiography Diagnostic Testing: Radiology Impression Chest X-Ray 03/31/24 22:10 IMPRESSION: COPD with fibrosis. Possible atelectasis or infiltrate of the right lung base. Electronically Signed: Dominick Mayo MD at 22:27 EDT , Physical Exam Const alert, oriented x3, no apparent distress and average body habitus Constitutional Narrative: Pleasant elderly female, sitting up comfortably in bedside chair, conversing normally, in no acute distress. General Appearance: cooperative and comfortable HEENT normocephalic, head/scalp atraumatic, hearing grossly normal bilaterally, nasal mucous membranes and turbinates normal and moist oral mucous membranes Eyes PERRL, EOMs intact bilaterally and conjunctivae normal Neck full ROM Chest inspection of chest normal Resp normal respiratory effort, normal air movement, no use of accessory muscles and clear to auscultation bilaterally Resp Narrative: Breathing comfortably on room air at rest. No wheezing or crackles noted. Cardio regular rate, regular rhythm, no murmurs and peripheral pulses 2+ throughout GI normal to inspection, nondistended, normoactive bowel sounds, soft to palpation, non-tender and non-distended Back/Spine normal ROM Extremity normal to inspection, full ROM and no pedal edema Skin no rashes or lesions noted Neuro no focal motor deficits and no sensory deficits noted Speech: speech normal Psych mental status grossly normal Assessment & Plan Assessment/Plan (1) COVID-19: (2) Respiratory insufficiency: (3) Hyponatremia: PLAN: Plan Patient is an 83-year-old female who presented to [facility] ED on 04/01/2024 with worsening shortness of breath and fevers. 1. COVID-19 infection with mild hypoxia in setting of chronic pulmonary fibrosis, improving ? Positive for COVID-19 in the ED. Symptom onset 03/29. Chest x-ray on admit appears unchanged from baseline. Mildly hypoxic in the ED. Continue treatment with Decadron 2 mg daily and IV remdesivir. Will plan for 5-day course of steroids total and continue IV remdesivir while inpatient. Patient off supplemental oxygen by hospital day 2. Will plan for oxygen qualification testing tomorrow. If patient continues to appear improved tomorrow, likely okay for discharge home. No need for antibiotics at this time. 2. Mild acute debility ? PT/OT/case management following. Good therapy scores on day of admission, planning for home with outpatient therapy on discharge. 3. Hyponatremia, improving ? Sodium 126 on admit, baseline is in normal range. Suspect due to recent poor p.o. intake and dehydration in setting of COVID-19 infection. Improving, sodium 129 on hospital day 2. Continue to monitor BMP daily. 4. Paroxysmal A-fib, combined CHF, severe aortic stenosis, history of CAD with stenting ? Stable, not in heart failure exacerbation. In normal sinus rhythm since admission. Echo in 10/23 showed EF 40 to 45% with severe aortic stenosis. Has history of stenting back in 2022. Continue home amiodarone, Coreg, Entresto, aspirin, statin and Eliquis. Chronic medical conditions: ? Chronic anemia: Hemoglobin at baseline around 10 on admit, stable. ? Depression: Stable. Continue home escitalopram. ? Hypothyroidism: Continue home Synthroid. ? History of femur fracture: Continue alendronate on discharge. DVT prophylaxis: Not indicated, on Eliquis CODE STATUS: Full code, verified Expected disposition: Home, 1 to 2 days Total clinical time spent by myself addressing the patient's medical issues, reviewing all the data, and collaborating with patient's care team: 35 minutes. Charges/Coding Visit Charges Inpatient E&M: 94819 Subs Hosp L2
[2024-04-01 10:58] LABS: Osmolality, Serum 269 mOsm/KG (280-301)
--- NOTE | 2024-04-01 13:29 | CASEMGMT ---
ROBBY KERN chart review: Patient was admitted 03/03/24 for afib with RVR and 02/12/24 for afib with RVR. See ROBBY KERN assessment from 03/03/24. Patient was discharged to home with family support, follow-up plans, and referral to patient link. Patient link called and left messages x2 with no return call. Patient returned 03/31/24 to [facility] ED for fever and general fatigue. Patient admitted for covid and placed on 2lpm of oxygen. ROBBY KERN in to discuss readmission and discharge plans. Patient states she was taking medications as prescribed and attended follow-up appts as scheduled. RN ERLIN inquired about patient link referral, patient unaware of messages and declines services at this time. Patient states she is attending outpatient therapy at [facility] as prescribed by pain specialist. Patient is currenly on room air, will monitor for home oxygen. ROBBY KERN discuss DME agencies with patient and prefers [employer]. Patient states she wishes to discharge home with resumption of outpatient therapy. Green sheet placed on chart for possible home oxygen.
[2024-04-01] MEDS: Atorvastatin Calcium 40 MG Tablet PO (21:56)
[2024-04-02 04:15] VITALS: BP 157/69; PULSE 60; RESP 15; TEMP 36.6; O2SAT 96
[2024-04-02 07:23] VITALS: PULSE 55; RESP 16
[2024-04-02] MEDS: Ipratropium/Albuterol Sulfate 3 ML AMPUL.NEB INHALATION (07:23)
[2024-04-02 08:00] VITALS: BP 149/68; PULSE 67; RESP 16; RESP 18; TEMP 36.4; O2SAT 95; O2SAT 96
[2024-04-02 08:08] LABS: Anion Gap 5 (5-15); BUN 18 mg/dL (7-18); BUN/Creat Ratio 19.5 RATIO (10-20); Calcium,Total 7.9 mg/dL (8.5-10.1); Chloride 102 mmol/L (98-107); Creatinine, Serum 0.92 mg/dL (0.55-1.02); EST Glomerular Filtration Rate 62 mL/min (>60); Est Glom Filt Rate - Afr Amer 75 mL/min (>60); Estimated Creatinine Clearance 35.36 ml/min; Glucose 125 mg/dL (74-106); Potassium 4.3 mmol/L (3.5-5.1); Sodium Level 132 mmol/L (136-145)
[2024-04-02] MEDS: Potassium Chloride Oral Tablet 20 MEQ PO (10:50)
[2024-04-02] MEDS: Carvedilol 12.5 MG Tablet 37.5 MG PO (10:51)
[2024-04-02] MEDS: APIXABAN 2.5 MG TABLET (WCH) PO (10:51)
[2024-04-02] MEDS: Amiodarone 200 MG Tablet PO (10:51)
[2024-04-02] MEDS: Escitalopram Oxalate 20 MG Tablet PO (10:52)
[2024-04-02] MEDS: Aspirin 81 MG TAB.CHEW PO (10:52)
[2024-04-02] MEDS: Levothyroxine 112 MCG Tablet PO (10:52)
[2024-04-02] MEDS: SACUBITRIL/VALSARTAN 24/26 MG TABLET 1 EACH PO (10:52)
--- NOTE | 2024-04-02 11:45 | DS.PCM_ITS ---
Providers Date of Admission: 04/01/24 Date of Discharge: 04/02/24 Primary Care Physician: Dr. Alek Chahal MD Reason For Visit: COVID 19 Diagnosis Discharge Diagnosis (1) COVID-19: Status: Acute Code(s): U07.1 - COVID-19 (2) Respiratory insufficiency: Status: Acute Code(s): R06.89 - Other abnormalities of breathing (3) Hyponatremia: Status: Acute Code(s): E87.1 - Hypo-osmolality and hyponatremia Medications at Discharge Home Medications levothyroxine 112 mcg tablet 112 mcg PO QODAY hypothroidism 02/17/20 escitalopram oxalate 20 mg tablet 20 mg PO DAILY anxiety 07/29/21 apixaban 2.5 mg tablet (Eliquis) See Rx Instructions .Route .COMPLEX blood thinner #180 tabs 11/01/23 carvedilol 12.5 mg tablet 12.5 mg PO .COMPLEX heart rate #180 tabs 02/09/24 carvedilol 25 mg tablet 25 mg PO .COMPLEX waiting on mail in RX #180 tabs 02/09/24 aspirin 81 mg chewable tablet (Arlet Chewable Low Dose Aspirin) 1 tab PO DAILY heart health 02/12/24 alendronate 70 mg tablet 70 mg PO TU bone health 03/03/24 amiodarone 200 mg tablet 200 mg PO DAILY heart 30 days #60 tabs 03/03/24 potassium chloride 10 mEq tablet,extended release 20 meq (2 x 10 mEq) PO DAILY supplement #0 tabs 03/06/24 sacubitril 24 mg-valsartan 26 mg tablet (Entresto) 1 tab PO BID #180 tabs 03/13/24 levothyroxine 100 mcg tablet 100 mcg PO QODAY thyroid 03/31/24 atorvastatin 40 mg tablet 40 mg PO QHS 90 days #90 tabs 04/02/24 dexamethasone 0.5 mg tablet 1 mg (2 x 0.5 mg) PO DAILY 3 days #6 tabs 04/02/24 Hospital Course Operations None Procedures - (Chest x-ray) Summary of Care Provided Minutes Spent on Discharge: 35 Hospital Course: Patient is an 83-year-old female who presented to [facility] ED on 04/01/2024 with worsening shortness of breath and fevers. Short hospital course as noted below. Discharged home with no therapy needs in stable condition on 04/02. 1. COVID-19 infection with mild hypoxia in setting of chronic pulmonary fibrosis ? Positive for COVID-19 in the ED. Symptom onset 03/29. Chest x-ray on admit appeared unchanged from baseline. Mildly hypoxic in the ED. Significant improvement by afternoon of day of admission after doses of steroids, a breathing treatment and IV fluids. Stable on room air on hospital day 2, completed oxygen ambulatory testing and did not need any oxygen on discharge. Treated with Decadron 2 mg daily during hospitalization, will continue Decadron reduced dose on discharge with plan for 5-day course total. Treated with IV remdesivir while inpatient, no need for this on discharge. No concern for bacterial pneumonia, no need for antibiotics either during admission or on discharge. 2. Mild acute debility ? PT/OT/case management followed. Good therapy scores during hospitalization, stable for discharge home with no therapy needs. 3. Hyponatremia, improving ? Sodium 126 on admit, baseline is in normal range. Suspect due to recent poor p.o. intake and dehydration in setting of COVID-19 infection. Given some IV fluids on admission with improvement. Sodium 132 on day of discharge. Encouraged good p.o. intake on discharge. 4. Paroxysmal A-fib, combined CHF, severe aortic stenosis, history of CAD with stenting ? Stable, not in heart failure exacerbation. In normal sinus rhythm since admission. Echo in 10/23 showed EF 40 to 45% with severe aortic stenosis. Has history of stenting back in 2022. Continue home amiodarone, Coreg, Entresto, aspirin, statin and Eliquis. Chronic medical conditions: ? Chronic anemia: Hemoglobin at baseline around 10 on admit, stable. ? Depression: Stable. Continue home escitalopram. ? Hypothyroidism: Continue home Synthroid. ? History of femur fracture: Continue alendronate on discharge. *Patient notably was admitted under inpatient status for COVID infection with hypoxia. She improved more quickly than anticipated and was discharged on hospital day 2. Total clinical time spent by myself addressing the patient's medical issues, reviewing all the data, and collaborating with patient's care team: 35 minutes. Physical Exam Const alert, oriented x3, no apparent distress and average body habitus Constitutional Narrative: Pleasant elderly female, sitting up comfortably in bedside chair, conversing normally, in no acute distress. General Appearance: cooperative and comfortable HEENT normocephalic, head/scalp atraumatic, hearing grossly normal bilaterally, nasal mucous membranes and turbinates normal and moist oral mucous membranes Eyes PERRL, EOMs intact bilaterally and conjunctivae normal Neck full ROM Chest inspection of chest normal Resp normal respiratory effort, normal air movement, no use of accessory muscles and clear to auscultation bilaterally Resp Narrative: Breathing comfortably on room air at rest. No wheezing or crackles noted. Cardio regular rate, regular rhythm, no murmurs and peripheral pulses 2+ throughout GI normal to inspection, nondistended, normoactive bowel sounds, soft to palpation, non-tender and non-distended Back/Spine normal ROM Extremity normal to inspection, full ROM and no pedal edema Skin no rashes or lesions noted Neuro no focal motor deficits and no sensory deficits noted Speech: speech normal Psych mental status grossly normal Weight / BMI Weight Weight: 60 kg Body Mass Index (BMI) 24.2 ABG / Lab / Microbiology Data 04/01/24 07:35 04/02/24 06:57 Laboratory: Laboratory Results - last 24 hr 04/02/24 06:57: Sodium 132 L, Potassium 4.3, Chloride 102, Carbon Dioxide 25.0, Anion Gap 5, BUN 18, Creatinine 0.92, Estim Creat Clear Calc 35.36, Est GFR (MDRD) Af Amer 75, Est GFR (MDRD) Non-Af 62, BUN/Creatinine Ratio 19.5, Glucose 125 H, Calcium 7.9 L Microbiology: Microbiology 03/31/24 21:55 Mucosa - Nose SARS-CoV-2, Influenza & RSV (PCR) - Final SARS-CoV-2 (COVID 19) 03/31/24 22:55 Urine, Clean Catch Urine Culture - Final Mixed Gram Positive Organisms Meaningful Use Info Meaningful Use Meaningful Use Diagnoses (Choose all that apply): None applicable Ischemic Stroke Statin Dosing Therapy Reference: STATIN DOSE THERAPY REFERENCE: * Patients > 75 years receive moderate or high dose statin therapy. * Patients 75 years or YOUNGER should receive HIGH intensity statin dose unless contraindicated. You will be required to document reason for non-treatment if statin daily dose does not meet guidelines. HIGH DOSE STATIN THERAPY DAILY Atorvastatin > than or = to 40 mg Rosuvastatin > than or = to 20 mg Amlodipine + Atorvastatin > than or = to 2.5/40 mg Ezetimibe + Simvastatin 10/80 mg Simvastatin 80mg Discharge Plan Admission Admit Date/Time: 04/01/24 00:29 Primary Reason for Your Visit: COVID-19 infection Attending Provider: Rell Ortega Primary Care Provider: Alek Chahal Consulting Providers: Uche Lazo Instructions Additional Instructions / Restrictions: Please take dexamethasone 1 mg (2 tablets) for 3 more days to complete 5-day course of steroids total for your COVID infection. Please take the decreased dose of the atorvastatin going forward. Follow-up with your primary care doctor as needed. Discharge Orders/Prescriptions Prescriptions: New atorvastatin 40 mg Tablet 40 mg PO QHS 90 Days Qty: 90 3RF dexamethasone 0.5 mg tablet 1 mg PO DAILY 3 Days Qty: 6 0RF Continued escitalopram oxalate 20 mg tablet 20 mg PO DAILY levothyroxine 112 MCG tablet 112 mcg PO QODAY Rx Instructions: every other day aspirin [Arlet Chewable Aspirin] 81 mg tablet,chewable 1 tab PO DAILY alendronate 70 mg tablet 70 mg PO TU amiodarone 200 mg Tablet 200 mg PO DAILY 30 Days Qty: 60 0RF Rx Instructions: Take twice daily for 7 days then decrease to daily dosing levothyroxine 100 mcg tablet 100 mcg PO QODAY Eliquis 2.5 mg tablet See Rx Instructions .ROUTE .COMPLEX Qty: 180 3RF Dose Instruction: TAKE 1 TABLET TWICE DAILY Rx Instructions: TAKE 1 TABLET TWICE DAILY carvedilol 25 mg tablet 25 mg PO .COMPLEX Qty: 180 3RF Rx Instructions: 25 mg orally Take a 25 mg tablet with a 12.5 mg tablet TWICE DAILY to = 37.5 TWICE A DAY; must administer with a meal/food carvedilol 12.5 mg tablet 12.5 mg PO .COMPLEX Qty: 180 3RF Rx Instructions: 12.5 mg orally Take with a 25 mg to = 37.5 mg TWICE a day; dose increased in hospital.; must administer with a meal/food potassium chloride 10 mEq tablet extended release 20 meq PO DAILY Qty: 0 0RF Entresto 24-26 mg tablet 1 tab PO BID Qty: 180 3RF Discontinued atorvastatin 80 mg tablet See Rx Instructions .ROUTE .COMPLEX Qty: 90 3RF Dose Instruction: TAKE 1 TABLET AT BEDTIME Rx Instructions: TAKE 1 TABLET AT BEDTIME furosemide 40 mg tablet 40 mg PO QDAY PRN (Reason: edema) Qty: 90 0RF Referrals / Follow Up: Alek Chahal MD [Primary Care Provider] - Disposition Disposition (needs filled in before D/C Order can be placed): Home, Self Care Charges/Coding Visit Charges Inpatient E&M: 40846 Disch Hosp >30min
[2024-04-02 12:44] VITALS: BP 112/68; PULSE 61; RESP 18; TEMP 37.2; O2SAT 98
== END 2024-04-02 13:04 | disposition home or self-care (01) | DRG 179 ==
LOC: ED 21:50 → MS3 04-01 00:48
PROVIDERS: Emergency Provider Emergency Medicine; PCP Family Medicine; Visit Provider Hospitalist
DX: U07.1 COVID-19 (principal); D64.9 Anemia, unspecified; I11.0 Hypertensive heart disease with heart failure; J84.10 Pulmonary fibrosis, unspecified; I50.9 Heart failure, unspecified; E03.9 Hypothyroidism, unspecified; I48.0 Paroxysmal atrial fibrillation; E86.0 Dehydration; F32.A Depression, unspecified; I35.0 Nonrheumatic aortic (valve) stenosis; J44.9 Chronic obstructive pulmonary disease, unspecified; I25.10 Atherosclerotic heart disease of native coronary artery without angina pectoris; Z79.01 Long term (current) use of anticoagulants; R53.81 Other malaise; Z95.5 Presence of coronary angioplasty implant and graft; Z87.891 Personal history of nicotine dependence; R79.1 Abnormal coagulation profile; Z79.83 Long term (current) use of bisphosphonates; Z79.82 Long term (current) use of aspirin; R09.02 Hypoxemia; Z86.718 Personal history of other venous thrombosis and embolism
CPT/HCPCS: 36415; 71046; 80048; 80053; 81001; 82533; 82570; 83605; 83930; 84443; 84484; 84540; 85025; 85027; 85610; 85730; 87040; 87086; 87088; 87631; 93005; 94640; 94668; 97162; 97165; 99285; A4216; J0248; J2405

== ENCOUNTER 2024-06-05 10:19 | Emergency (ER) | payer MEDICARE, SELFPAY ==
[2023-05-07 08:38] VITALS: BMI 23.0
[2024-06-05 10:20] VITALS: BP 176/71; PULSE 61; RESP 18; TEMP 36.8; O2SAT 98
--- NOTE | 2024-06-05 10:51 | EDS_ITS ---
HPI History of Present Illness Chief Complaint: Cough Narrative Narrative: Chief complaint and HPI: Cough. 83-year-old female presents for evaluation of cough. Patient states that her cough is productive. Has been ongoing for 1 week. Has taken Robitussin with little relief. Denies any fever, chills, chest pain, shortness of breath, abdominal pain, nausea, vomiting, dysuria. Does endorse URI symptoms with congestion and runny nose. Previous tobacco abuse. No history of asthma or COPD. Patient has past medical history of atrial fibs on Eliquis, HTN. Review of systems: See HPI Medications: As listed on the chart Allergies: As listed on the chart PFSH: Per chart Vital signs: As listed on the chart. Reviewed. Physical exam: Gen: A&O x3, NAD Head: Normocephalic, atraumatic Eyes: No sclera icterus, conjunctiva clear, PERRL, EOMI ENT: Moist mucous membranes, no facial tenderness with palpation of the sinuses Neck: Trachea midline, No JVD, Full ROM, No meningismus CV: RRR, no murmurs, no peripheral edema Resp: Lungs mildly diminished, + wheezing throughout GI: Abd soft, non-distended, non-tender, no r/r/g Musc: Full ROM, no deformity Skin: Warm, dry, no rash Neuro: Alert, oriented, grossly intact, sensation intact Psych: Cooperative, appropriate mood and affect [facility] Medical History Hip fracture requiring operative repair Elevated troponin SVT (supraventricular tachycardia) Anemia Acute hyponatremia Atherosclerosis of coronary artery of [place] heart without angina pectoris PAF (paroxysmal atrial fibrillation) Nonrheumatic aortic (valve) stenosis Compression fracture Essential (primary) hypertension Premature ventricular beats Myocarditis Solar elastosis Arthritis Depression Right leg DVT Nonsustained paroxysmal ventricular tachycardia Non-ischemic cardiomyopathy Home Medications ?Medication ?Instructions ?Recorded ?Last Taken ?Type levothyroxine 112 mcg tablet 112 mcg PO QODAY hypothroidism 02/17/20 06/04/24 History escitalopram oxalate 20 mg tablet 20 mg PO DAILY anxiety 07/29/21 06/04/24 History apixaban 2.5 mg tablet (Eliquis) See Rx Instructions .Route 11/01/23 06/04/24 Rx .COMPLEX blood thinner #180 tabs carvedilol 12.5 mg tablet 12.5 mg PO .COMPLEX heart rate 02/09/24 06/04/24 Rx #180 tabs carvedilol 25 mg tablet 25 mg PO .COMPLEX waiting on mail 02/09/24 06/04/24 Rx in RX #180 tabs aspirin 81 mg chewable tablet 1 tab PO DAILY heart health 02/12/24 06/04/24 History (Arlet Chewable Low Dose Aspirin) alendronate 70 mg tablet 70 mg PO bone health 03/03/24 06/04/24 History potassium chloride 10 mEq 20 meq (2 x 10 mEq) PO DAILY 03/06/24 06/04/24 Rx tablet,extended release supplement #0 tabs levothyroxine 100 mcg tablet 100 mcg PO QODAY thyroid 03/31/24 06/04/24 History atorvastatin 40 mg tablet 40 mg PO QHS 90 days #90 tabs 04/02/24 06/04/24 Rx amiodarone 200 mg tablet 200 mg PO DAILY heart #90 tabs 04/14/24 06/04/24 Rx sacubitril 24 mg-valsartan 26 mg 1 tab PO BID #180 tabs 04/14/24 06/04/24 Rx tablet (Entresto) Allergy/AdvReac Type Severity Reaction Status Date / Time imiquimod (From Aldara) Allergy Unknown Verified 06/05/24 10:22 Penicillins (PCN) Allergy Anaphylaxis Verified 06/05/24 10:22 amlodipine AdvReac Intermediate swelling Verified 06/05/24 10:22 in feet and legs dapagliflozin (From Farxiga) AdvReac Intermediate Lightheaded Verified 06/05/24 10:22 and faint ciprofloxacin (From Cipro) AdvReac Other Verified 06/05/24 10:22 furosemide AdvReac low saodium Verified 06/05/24 10:22 hydrochlorothiazide AdvReac hyponatremi Verified 06/05/24 10:22 a magnesium AdvReac Nausea Verified 06/05/24 10:22 prednisone AdvReac Upset Verified 06/05/24 10:22 Stomach Family History Mother Heart disease Father Heart disease Surgical History History of coronary artery stent placement (01/21/23) History of cataract surgery History of right hip replacement History of hysterectomy History of left heart catheterization (02/19/11) Social History household members: none Smoking Status: Former smoker how long ago did patient quit smokin years ago alcohol intake: current alcohol intake frequency: holidays/special occasions only substance use type: does not use caffeine: Yes Type: coffee Number of servings: 1 EXAM Physical Exam Const Vital Signs: 06/05/24 10:20 06/05/24 10:58 06/05/24 11:56 Temperature 98.3 F Temperature Source Oral Pulse Rate 61 58 L 60 Respiratory Rate 18 14 18 Respiratory Pattern Normal Blood Pressure 176/71 H 178/74 H Blood Pressure Mean 106 108 Pulse Ox 98 96 Oxygen Delivery Method Room Air Room Air MDM MDM MDM Narrative Medical decision making narrative: 83-year-old female presents for evaluation of productive cough. Ongoing for 1 week. It patient endorses nasal congestion and rhinorrhea but denies fever, chills, shortness of breath, chest pain. On physical exam she has diffuse wheezing. No history of asthma or COPD. Differential diagnosis includes but is not limited to viral illness, bronchitis, COVID, flu. DuoNeb ordered with basic labs and chest x-ray. CBC without leukocytosis patient has baseline anemia. BMP shows baseline hyponatremia. No STEVEN. Chest x-ray without pneumonia. On reexamination, patient's wheezing has improved. She states she feels like this opened her up. COVID, flu, RSV negative. Patient symptoms are likely secondary to bronchitis. Patient will be placed on Tessalon Perles for cough. She will be given a Z-Giuliano for bronchitis. Follow-up with PCP. Return precautions explained. She confirmed understand the plan Diagnostic: Interpreted by me/EM physician: Interstitial markings. No pneumonia, effusion, pneumothorax Impression: 1. Bronchitis 2. Chronic anemia 3. Chronic hyponatremia Lab Data Labs: Laboratory Results - last 24 hr 06/05/24 10:55 WBC 6.2 RBC 3.17 L Hgb 9.6 L Hct 30.4 L MCV 95.9 MCH 30.3 MCHC 31.6 L RDW Std Deviation 52.6 H RDW Coeff of Tonie 14.8 H Plt Count 155 MPV 11.2 Immature Gran % (Auto) 0.600 Neut % (Auto) 76.5 H Lymph % (Auto) 12.2 L [place] % (Auto) 8.3 Eos % (Auto) 2.2 Baso % (Auto) 0.2 Absolute Neuts (auto) 4.8 Absolute Lymphs (auto) 0.76 L Nucleated RBC % 0 Sodium 130 L Potassium 3.8 Chloride 97 L Carbon Dioxide 26.0 Anion Gap 7 BUN 10 Creatinine 0.90 Estim Creat Clear Calc 39.38 Est GFR (MDRD) Af Amer 77 Est GFR (MDRD) Non-Af 63 BUN/Creatinine Ratio 11.1 Glucose 91 Calcium 8.3 L Radiography Diagnostic Testing: Clinical Impression(s) from Imaging Studies Chest X-Ray 06/05/24 11:35 IMPRESSION: Hyperinflation. Stable coarse and increased interstitial markings in both lungs worse at the lung bases suggestive of scarring. Electronically Signed: Troy Limon MD at 12:17 EDT , Discharge Plan Triage Chief Complaint: Cough ED Provider: Demian Miranda Dx/Rx/DC Orders Prescriptions: No Action escitalopram oxalate 20 mg tablet 20 mg PO DAILY levothyroxine 112 MCG tablet 112 mcg PO QODAY Rx Instructions: every other day aspirin [Arlet Chewable Aspirin] 81 mg tablet,chewable 1 tab PO DAILY alendronate 70 mg tablet 70 mg PO TU levothyroxine 100 mcg tablet 100 mcg PO QODAY atorvastatin 40 mg Tablet 40 mg PO QHS 90 Days Qty: 90 3RF Eliquis 2.5 mg tablet See Rx Instructions .ROUTE .COMPLEX Qty: 180 3RF Dose Instruction: TAKE 1 TABLET TWICE DAILY Rx Instructions: TAKE 1 TABLET TWICE DAILY carvedilol 25 mg tablet 25 mg PO .COMPLEX Qty: 180 3RF Rx Instructions: 25 mg orally Take a 25 mg tablet with a 12.5 mg tablet TWICE DAILY to = 37.5 TWICE A DAY; must administer with a meal/food carvedilol 12.5 mg tablet 12.5 mg PO .COMPLEX Qty: 180 3RF Rx Instructions: 12.5 mg orally Take with a 25 mg to = 37.5 mg TWICE a day; dose increased in hospital.; must administer with a meal/food potassium chloride 10 mEq tablet extended release 20 meq PO DAILY Qty: 0 0RF Entresto 24-26 mg tablet 1 tab PO BID Qty: 180 3RF amiodarone 200 mg tablet 200 mg PO DAILY Qty: 90 3RF Primary Care Provider: Alek Chahal Referrals: Alek Chahal MD [Primary Care Provider] - Print Language: Danish
[2024-06-05 10:55] VITALS: BMI 24.7
[2024-06-05 10:58] VITALS: BP 178/74; PULSE 58; RESP 14; O2SAT 96
[2024-06-05 11:07] LABS: Absolute Lymphocyte Count 0.76 X10^3/uL (0.83-4.51); Absolute Neutrophil Count 4.8 X10^3/uL (2.0-7.7); Basophil# 0.01 X10^3/uL; Basophil% 0.2 % (0-1); Eosinophil# 0.14 X10^3/uL; Eosinophils% 2.2 % (0-5); Hematocrit 30.4 % (37-47); Hemoglobin 9.6 g/dL (12.0-15.0); Lymphocyte # 0.76 X10^3/ul (0.83-4.51); Lymphocyte % 12.2 % (19-41); Mean Corp Hgb Conc 31.6 g/dL (32-36); Mean Corpuscular Hgb 30.3 pg (27.0-32.0); Mean Corpuscular Volume 95.9 fL (81-99); Mean Platelet Vol. 11.2 fl (6.2-12.0); Monocyte# 0.52 X10^3/uL; Monocyte% 8.3 % (0-10); NRBC Flagged by Analyzer 0 % (0-5); Neutrophil # 4.77 X10^3/uL (2.7-7.7); Neutrophil % 76.5 % (47-70); Platelet Count 155 K/mm3 (150-450); RBC Distribution Width CV 14.8 % (11.6-14.6); RBC Distribution Width SD 52.6 fl (35.1-43.9); Red Blood Count 3.17 M/mm3 (4.2-5.4); White Blood Count 6.2 K/mm3 (4.4-11.0)
[2024-06-05 11:24] LABS: Anion Gap 7 (5-15); BUN 10 mg/dL (7-18); BUN/Creat Ratio 11.1 RATIO (10-20); Calcium,Total 8.3 mg/dL (8.5-10.1); Chloride 97 mmol/L (98-107); EST Glomerular Filtration Rate 63 mL/min (>60); Est Glom Filt Rate - Afr Amer 77 mL/min (>60); Estimated Creatinine Clearance 39.38 ml/min; Glucose 91 mg/dL (74-106); Potassium 3.8 mmol/L (3.5-5.1); Sodium Level 130 mmol/L (136-145)
--- NOTE | 2024-06-05 11:35 | RAD_ITS ---
STUDY: X-RAY CHEST REASON FOR EXAM: Female, 83 years old. Cough TECHNIQUE: PA and lateral views of the chest. COMPARISON: Comparison is made with prior study of the second 2023. FINDINGS: There are interstitial fibrotic changes of the lungs. There is no demonstrated pleural abnormality. Normal size heart. Normal mediastinum and linda. Normal visualized pulmonary arteries. There is atherosclerotic calcification of the aortic arch with tortuosity. There are diffuse degenerative changes of the visualized thoracic spine. Stable loss of height of a mid dorsal vertebrae. Normal visualized ribs, clavicles, and shoulders. There is no demonstrated abnormality of the visualized soft tissue structures of the upper abdomen. RAD/Chest PA and Lateral IMPRESSION: Hyperinflation. Stable coarse and increased interstitial markings in both lungs worse at the lung bases suggestive of scarring. Electronically Signed: Troy Limon MD at 12:17 EDT ,
[2024-06-05] MEDS: Ipratropium/Albuterol Sulfate 3 ML AMPUL.NEB INHALATION (11:55)
[2024-06-05 11:56] VITALS: PULSE 60; RESP 18
[2024-06-05 13:12] VITALS: BP 93/66; PULSE 80; RESP 16; TEMP 36.7; O2SAT 100
== END 2024-06-05 13:12 | disposition home or self-care (01) ==
PROVIDERS: Emergency Provider Surgery; PCP Family Medicine; Visit Provider Surgery
DX: J40 Bronchitis, not specified as acute or chronic (principal); I48.0 Paroxysmal atrial fibrillation; E87.1 Hypo-osmolality and hyponatremia; Z87.891 Personal history of nicotine dependence; D64.9 Anemia, unspecified; I25.10 Atherosclerotic heart disease of native coronary artery without angina pectoris; I10 Essential (primary) hypertension; Z90.710 Acquired absence of both cervix and uterus; Z95.5 Presence of coronary angioplasty implant and graft; Z86.718 Personal history of other venous thrombosis and embolism; Z79.01 Long term (current) use of anticoagulants; Z79.82 Long term (current) use of aspirin
CPT/HCPCS: 71046; 80048; 85025; 87631; 94640; 99283; A4216

== ENCOUNTER → 2024-06-20 | Outpatient (CLI) | payer MEDICARE, SELFPAY ==
[2023-05-07 08:38] VITALS: BMI 23.0
[2024-06-20 11:02] LABS: Absolute Lymphocyte Count 0.66 X10^3/uL (0.83-4.51); Absolute Neutrophil Count 2.5 X10^3/uL (2.0-7.7); Basophil# 0.01 X10^3/uL; Basophil% 0.3 % (0-1); Eosinophil# 0.18 X10^3/uL; Eosinophils% 4.9 % (0-5); Hematocrit 27.9 % (37-47); Lymphocyte # 0.66 X10^3/ul (0.83-4.51); Lymphocyte % 17.9 % (19-41); Mean Corp Hgb Conc 32.3 g/dL (32-36); Mean Corpuscular Hgb 31.1 pg (27.0-32.0); Mean Corpuscular Volume 96.5 fL (81-99); Mean Platelet Vol. 10.1 fl (6.2-12.0); Monocyte# 0.34 X10^3/uL; Monocyte% 9.2 % (0-10); NRBC Flagged by Analyzer 0 % (0-5); Neutrophil # 2.49 X10^3/uL (2.7-7.7); Neutrophil % 67.4 % (47-70); Platelet Count 284 K/mm3 (150-450); RBC Distribution Width CV 14.9 % (11.6-14.6); RBC Distribution Width SD 52.9 fl (35.1-43.9); Red Blood Count 2.89 M/mm3 (4.2-5.4); White Blood Count 3.7 K/mm3 (4.4-11.0)
[2024-06-20 11:27] LABS: Vitamin D,25 Hydroxy 20.1 ng/mL
[2024-06-20 11:34] LABS: ALB/GLOB Ratio 0.8 RATIO (0.9-2.4); AST(SGOT) 36 U/L (15-37); Alanine Aminotransfer ALT/SGPT 38 U/L (13-56); Albumin, Serum 2.8 g/dL (3.2-5.0); Alkaline Phosphatase 45 U/L (45-117); Anion Gap 4 (5-15); BUN 20 mg/dL (7-18); BUN/Creat Ratio 16.8 RATIO (10-20); Calcium,Total 8.5 mg/dL (8.5-10.1); Chloride 103 mmol/L (98-107); Creatinine, Serum 1.19 mg/dL (0.55-1.02); EST Glomerular Filtration Rate 46 mL/min (>60); Est Glom Filt Rate - Afr Amer 55 mL/min (>60); Free T3 0.7 pg/mL (2.18-3.98); Globulin 3.5 g/dL (2.2-4.2); Glucose 88 mg/dL (74-106); Potassium 4.7 mmol/L (3.5-5.1); Protein, Total 6.3 g/dL (6.4-8.2); Sodium Level 135 mmol/L (136-145); T4 Free Direct 1.67 ng/dL (0.76-1.46)
== END | disposition home or self-care (01) ==
PROVIDERS: PCP Family Medicine; Referring Provider Nurse Practitioner Gerontology; Visit Provider Nurse Practitioner Gerontology
DX: Z79.899 Other long term (current) drug therapy (principal); I48.91 Unspecified atrial fibrillation; E55.9 Vitamin D deficiency, unspecified
CPT/HCPCS: 36415; 80053; 82306; 84439; 84443; 84481; 85025

== ENCOUNTER → 2024-06-29 | Outpatient (CLI) | payer MEDICARE, SELFPAY ==
[2023-05-07 08:38] VITALS: BMI 23.0
--- NOTE | 2024-06-29 09:34 | CDU_ITS ---
Reason For Study: Carotid bruit Rt. Velocities/BP Lt. Velocities/BP Prox CCA 33.3/9.7 cm/sec. Prox CCA 42.1/8.1 cm/sec. Mid CCA 41.9/9.7 cm/sec. Mid CCA 52.6/10.7 cm/sec. Dist CCA 39/8.8 cm/sec. Dist CCA 56.1/12.5 cm/sec. Prox ICA 130.2/42.6 cm/sec. Prox ICA 43/11.6 cm/sec. Mid ICA 148.5/40.7 cm/sec. Mid ICA 69.2/22.1 cm/sec. Dist ICA 137.5/22.5 cm/sec. Dist ICA 62.2/20.3 cm/sec. Rt. ICA/CCA = 3.54. Lt. ICA/CCA = 1.32. Prox ECA 62.6/3.1 cm/sec. Prox ECA 47.4/4.6 cm/sec. Rt. Vert. 45.6/13.3 cm/sec. Lt. Vert. 43.9/11.6 cm/sec. Right Extracranial There is homogeneous, irregular atherosclerotic plaque noted in the right common carotid artery. There is heterogeneous, irregular atherosclerotic plaque noted in the right internal carotid artery. The atherosclerotic plaque causes acoustic shadowing. There is heterogeneous, irregular atherosclerotic plaque noted in the right external carotid artery. Antegrade flow is noted in the right vertebral artery. Left Extracranial There is heterogeneous, irregular atherosclerotic plaque noted in the left common carotid artery. There is heterogeneous, irregular atherosclerotic plaque noted in the left internal carotid artery. There is heterogeneous, irregular atherosclerotic plaque noted in the left external carotid artery. Antegrade flow is noted in the left vertebral artery. Procedure Carotid Duplex [id number]. This is a Carotid Duplex examination using B-mode, color flow and specral Doppler. Exam performed in department. VL/Carotid Duplex Ultrasound Interpretation Summary Moderate (50-69%) stenosis right extracranial internal carotid. Mild (<50%) stenosis left extracranial internal carotid. Patent and antegrade vertebrals bilaterally. Ordering Physician: Sydney Delong Referring Physician: MD Gerda Alek Performed By: Amira Tuttle RVT
== END | disposition home or self-care (01) ==
LOC: PSN 09:33
PROVIDERS: PCP Family Medicine; Referring Provider Nurse Practitioner Gerontology; Visit Provider Nurse Practitioner Gerontology
DX: Z79.899 Other long term (current) drug therapy (principal); R09.89 Other specified symptoms and signs involving the circulatory and respiratory systems
CPT/HCPCS: 93880; 94060; 94726; 94729

== ENCOUNTER → 2024-07-03 | Outpatient (CLI) | payer MEDICARE, SELFPAY ==
[2023-05-07 08:38] VITALS: BMI 23.0
--- NOTE | 2024-07-03 12:45 | MRI_ITS ---
EXAM: MR LUMBAR SPINE WITHOUT INTRAVENOUS CONTRAST CLINICAL INDICATION: COMPRESSION FX,SPONDYLOSIS TECHNIQUE: Multiplanar and multisequence MR images of the lumbar spine without intravenous contrast. COMPARISON: 07/03/2020 MRI lumbar spine. FINDINGS: VERTEBRAE: Mild retropulsion of the posterior cortices of T11-L1. Multilevel facet arthrosis and endplate osteophytosis. On nondiagnostic localization images, there are additional midthoracic compression fractures and degenerative changes throughout the remainder the spine. There are chronic compression fractures inclusive of T11-L5 which are chronic given lack of marrow edema. No significant change in vertebral body height loss since prior MRI dated 07/03/2020. Normal lumbar lordosis. SPINAL CORD: No significant abnormality. Normal position and signal intensity of the conus medullaris. 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 SOFT TISSUES: No significant abnormality. DISCS/SPINAL CANAL/NEURAL FORAMINA: L1-L2: Mild spinal canal stenosis and moderate bilateral neural foraminal narrowing. L2-L3: Mild spinal canal stenosis and moderate bilateral neural foraminal narrowing. L3-L4: Mild spinal canal stenosis and mild bilateral neural foraminal narrowing. L4-L5: Mild spinal canal stenosis and [id number] bilateral neural foraminal narrowing. L5-S1: Moderate bilateral facet arthrosis and mild bilateral neural foraminal narrowing. Normal spinal canal and lateral recesses. MRI/Spine Lumbar (Routine) IMPRESSION: There are chronic compression fractures inclusive of T11-L5 which are chronic given lack of marrow edema. No significant change in vertebral body height loss since prior MRI dated 07/03/2020. Extensive degenerative change. Electronically Signed: Shawn Gottlieb DO at 23:02 EST ,
== END | disposition home or self-care (01) ==
PROVIDERS: PCP Family Medicine; Referring Provider Anesthesiology; Visit Provider Anesthesiology
DX: M48.56XA Collapsed vertebra, not elsewhere classified, lumbar region, initial encounter for fracture (principal); M43.06 Spondylolysis, lumbar region
CPT/HCPCS: 72148

== ENCOUNTER 2025-02-25 01:13 | Emergency (ER) | payer MEDICARE, SELFPAY ==
[2023-05-07 08:38] VITALS: BMI 23.0
[2025-02-25 01:14] VITALS: BP 187/88; PULSE 66; RESP 18; TEMP 37; O2SAT 97; BMI 24.9
--- NOTE | 2025-02-25 01:33 | EKG12_ITS ---
Test Reason : PALPITATIONS Blood Pressure : */* mmHG Vent. Rate : 66 BPM Atrial Rate : 66 BPM P-R Int : 272 ms QRS Dur : 100 ms QT Int : 436 ms P-R-T Axes : 86 -5 68 degrees QTcB Int : 457 ms Sinus rhythm with 1st degree A-V block Incomplete right bundle branch block Septal infarct , age undetermined Abnormal ECG Confirmed by DACIA CAVAZOS, SHARMAINE ([id number]), managing editor ROOPA BYERS ([id number]) on 02/27/2025 6:44:00 AM Referred By: SEVERIANO Confirmed By: SHARMAINE PEDERSON MD
[2025-02-25 01:43] LABS: Absolute Lymphocyte Count 1.46 X10^3/uL (0.83-4.51); Absolute Neutrophil Count 2.5 X10^3/uL (2.0-7.7); Basophil# 0.02 X10^3/uL; Basophil% 0.4 % (0-1); Eosinophil# 0.17 X10^3/uL; Eosinophils% 3.6 % (0-5); Hemoglobin 9.6 g/dL (12.0-15.0); Lymphocyte # 1.46 X10^3/ul (0.83-4.51); Lymphocyte % 30.9 % (19-41); Mean Corp Hgb Conc 33.1 g/dL (32-36); Mean Corpuscular Hgb 32.4 pg (27.0-32.0); Mean Platelet Vol. 11.6 fl (6.2-12.0); Monocyte# 0.61 X10^3/uL; Monocyte% 12.9 % (0-10); NRBC Flagged by Analyzer 0 % (0-5); Neutrophil # 2.45 X10^3/uL (2.7-7.7); Platelet Count 147 K/mm3 (150-450); RBC Distribution Width CV 14.2 % (11.6-14.6); RBC Distribution Width SD 50.5 fl (35.1-43.9); Red Blood Count 2.96 M/mm3 (4.2-5.4); White Blood Count 4.7 K/mm3 (4.4-11.0)
--- OUTSIDE RECORDS SUMMARY | 2025-02-25 01:48 | XMS RPT_ITS | CCD ---
Author Organization [facility] Care Team Providers Care Cash Applications Specialist Name Role Phone Dr. Zion Chahal Primary Care Provider Dr. Zion Chahal Referring Provider Baljeet GEOPHYSICAL LABORATORY CHIEF, GEOPHYSICAL LABORATORY CHIEF-C Sydney Attending Provider Dr. Joesph Rosa Emergency Provider Dr. Rosa Valladares Admit Provider Dr. Rosa Valladares Attending Provider Dr. Rosa Valladares Other Provider Dr. Timothy Mack Attending Provider Dr. Vishal Matson Other Provider Dr. Elsa Coleman Other Provider Dr. Sunil Paul Other Provider Seth GEOPHYSICAL LABORATORY CHIEF, GEOPHYSICAL LABORATORY CHIEF-C Yasmeen Attending Provider Dr. Elsa Coleman Attending Provider Sharan, Dr. Solorzano Attending Provider [phone] Griselda Gonzalez Other Provider Dr. Sunil Penn Attending Provider Dr. Griselda Gonzalez Attending Provider Dr. Griselda Gonzalez Attending Provider Dr. Griselda Gonzalez Referring Provider Desiree GEOPHYSICAL LABORATORY CHIEF, GEOPHYSICAL LABORATORY CHIEF-C Anjana Attending Provider Unav ailable Dr. Zion Chahal Primary Care Provider Dr. Zion Chahal Referring Provider Baljeet GEOPHYSICAL LABORATORY CHIEF, GEOPHYSICAL LABORATORY CHIEF-C Sydney Attending Provider Dr. Timothy Mack Attending Provider Dr. Timothy Mack Referring Provider Dr. Timothy Mack Admit Provider Dr. Timothy Mack Other Provider Dr. Hayden Mcnair Emergency Provider Dr. Elsa Coleman Admit Provider Dr. Elsa Coleman Attending Provider Dr. Elsa Coleman Other Provider Dr. Treva Mariee Attending Provider Dr. Treva Mariee Other Provider Dr. Nimco Braswell Other Provider Dr. Nimco Braswell Attending Provider Dr. Zion Chahal Primary Care Provider Dr. Zion Chahal Referring Provider Baljeet GEOPHYSICAL LABORATORY CHIEF, GEOPHYSICAL LABORATORY CHIEF-C Sydney Attending Provider Dr. Elsa Coleman Referring Provider Zion Chahal MD Unavailable Dr. Mele Lehman MD Unavailable Dr. Alvaro Forrest DO Unavailable [phone] Dr. Gabriel Olson MD Unavailable Dr. Sunil Salazar MD, V Unavailable [facility], Physical Therapy Unavailable Dr. Sammy Vu MD Unavailable Dr. Torin Goodwin MD Unavailable Dr. Doron Merrill DO Unavailable Taco COREMAKER EXPERIMENTAL, Cindy Unavailable Jean COREMAKER EXPERIMENTAL, Elsy Unavailable Unavailable Luis Alberto CAVAZOS, Sunil Lr Unavailable Amy MICHAELS, Yamilka Portillo Unavailable Bigg BUSTAMANTE, Cammie Wallace Unavailable Unavail able Carlos COREMAKER EXPERIMENTAL, Dilcia Unavailable Unavailable Juan MICHAELS, Alondra Muir Unavailable Kong, Verito L Unavailable Richert COREMAKER EXPERIMENTAL, Ni L Unavailable Unavailab le Judy COREMAKER EXPERIMENTAL, Domonique Perez Unavailable Unavailab le Kenisha Stein A Unavailable Unavailable Vess COREMAKER EXPERIMENTAL, Neilee L Unavailable Unavailable Wengerd COREMAKER EXPERIMENTAL, Patrica Unavailable Unavailabl e León COREMAKER EXPERIMENTAL, Briseyda N Unavailable Unavaila ble Unavailable Unavailable Unavailable Unavailable Pain Management Provider Unavailable Unavail able Unavailable Unavailable Jignesh CAVAZOS, Charanjit Love Unavailable Dr. Zion Chahal MD Primary Care Provider Dr. Zion Chahal MD Referring Provider Zion Harrington Attending Provider Thomas Cast Admitting Unavailable Vaccariello, Zion Primary Care Unavailable Thomas Cast Attending Unavailable Vaccariello, Zion Primary Care Unavailable Baljeet GEOPHYSICAL LABORATORY CHIEF, Sydney Referring Unavailable Baljeet RODRIGUEZ, Sydney Attending Unavailable Thomas Epstein Referring Unavailable Thomas Epstein Attending Unavailable Vaccariello, Zion Primary Care Unavailable Zoin Chahal Attending Unavailable Vaccariello, Zion Primary Care Unavailable Charanjit Egan Attending Unavailable Vaccariello, Zion Primary Care Unavailable Uche Lazo Consulting Unavailable Uche Lazo Admitting Unavailable Vaccariello, Zion Primary Care Unavailable Rell Ortega Attending Unavailable Vaccariello, Zion Primary Care Unavailable Baljeet GEOPHYSICAL LABORATORY CHIEF, Sydney Attending Unavailable Baljeet GEOPHYSICAL LABORATORY CHIEF, Sydney Referring Unavailable Vaccariello, Zion Primary Care Unavailable Baljeet GEOPHYSICAL LABORATORY CHIEF, Sydney Referring Unavailable Baljeet GEOPHYSICAL LABORATORY CHIEF, Sydney Attending Unavailable Thomas Cast Admitting Unavailable Vaccariello, Zion Primary Care Unavailable Edouard Castolas F Attending Unavailable Sosa Thomas F Consulting Unavailable Uche Zee Attending Unavailable Vaccariello, Zion Primary Care Unavailable Baljeet GEOPHYSICAL LABORATORY CHIEF, Sydney Referring Unavailable Demian Miranda Attending Unavailabl e Vaccariello, Zion Primary Care Unavailable Roof GEOPHYSICAL LABORATORY CHIEF, Zion H Referring Unavailable Roof GEOPHYSICAL LABORATORY CHIEF, Zion H Attending Unavailable Vaccariello, Zion Primary Care Unavailable Vaccariello, Zion Primary Care Unavailable Otf Blum Attending Unavailable Vaccariello, Zion Primary Care Unavailable Delong GEOPHYSICAL LABORATORY CHIEF, Sydney Referring Unavailable Oniel Bullard Attending Unavailable Baljeet GEOPHYSICAL LABORATORY CHIEF, Sydney Attending Unavailable Vaccariello, Zion Primary Care Unavailable Vaccariello, Zion Primary Care Unavailable Delong GEOPHYSICAL LABORATORY CHIEF, Sydney Attending Unavailable Vaccariello, Zion Referring Unavailable Vaccariello, Zion Primary Care Unavailable Roof GEOPHYSICAL LABORATORY CHIEF, Izon H Attending Unavailable Vaccariello, Zion Referring Unavailable Vaccariello, Zion Primary Care Unavailable Thomas Cast Referring Unavailable Javier Lehman Attending Unavailable Uche Lazo Attending Unavailable Uche Lazo Consulting Unavailable Uche Lazo Admitting Unavailable Vaccariello, Zion Primary Care Unavailable Rell Ortega Attending Unavailable Rell Ortega Consulting Unavailable Vaccariello, Zion Primary Care Unavailable Oft Blum Attending Unavailable Allergies Allergy Classification Reported Allergen(s) Allergy Type Date of Onset Reaction(s) Facility Corticosteroids (5 sources) predniSONE Drug Allergy [facility] imiquimod (5 sources) imiquimod Drug Allergy [facility] Penicillin V (5 sources) Penicillin V Drug Allergy [facility] Quinolones (antibiotic) (10 sources) Ciprofloxacin Drug Allergy [facility] Unclassified (1 source) [facility] Unclassified (1 source) [facility] Unclassified (1 source) [facility] Unclassified (1 source) [facility] Unclassified (1 source) [facility] (20 sources) Ciprofloxacin Drug Allergy [facility] Comment on above: DIZZINESS (16 sources) Furosemide Drug Allergy 06-29-2 022 low saodium [facility] (16 sources) hydroCHLOROthiazide Drug Allergy hyponatremia [facility] (20 sources) imiquimod Drug Allergy Unknown [facility] (16 sources) Magnesium Drug Allergy Nausea [facility] Comment on above: LIGHTHEADED, NAUSEA, SWEATING (17 sources) Penicillins; Translations: [Penicillins] Allergy to substance Anaphylaxis [facility] (20 sources) predniSONE Drug Allergy Upset [facility] (8 sources) amLODIPine Drug Allergy swelling in feet and legs [facility] (20 sources) levoFLOXacin Drug Allergy [facility] (20 sources) Penicillin V Drug Allergy [facility] (1 source[facility] (1 source) [facility] (1 source[facility] (1 source[facility] (1 source) [facility] (1 source) [facility] (1 source) [facility] (1 source) [facility] (1 source) [facility] (1 source) [facility] (1 source) [facility] (1 source) [facility] (1 source[facility] (1 source[facility] (1 source) [facility] (1 source) [facility] (1 source) [facility] (1 source) [facility] (1 source) [facility] (1 source[facility] (1 source[facility] (1 source[facility] (1 source[facility] (1 source) [facility] (1 source[facility] (1 source) [facility] (1 source) [facility] (1 source) [facility] (1 source[facility] (1 source) [facility] (1 source[facility] (1 source) [facility] (1 source) [facility] (1 source) [facility] (1 source) [facility] (1 source) [facility] (1 source) [facility] (1 source) [facility] (1 source) [facility] (1 source) [facility] (1 source) [facility] (1 source) [facility] (1 source) [facility] (1 source) [facility] (1 source) [facility] (1 source) [facility] (1 source) [facility] (1 source) [facility] (1 source) dapagliflozin Drug Allergy 025 Lightheaded and faint [facility] (1 source) [facility] (1 source) [facility] (1 source) [facility] (1 source) amLODIPine Drug Allergy [facility] (1 source) Ciprofloxacin Drug Allergy [facility] (1 source) dapagliflozin Drug Allergy [facility] (1 source) Furosemide Drug Allergy [facility] (1 source) hydroCHLOROthiazide Drug Allergy [facility] (1 source) imiquimod Drug Allergy [facility] (1 source) Magnesium Drug Allergy [facility] (1 source) predniSONE Drug Allergy [facility] Medications Current Medications Medication Drug Class(es) Dates Sig (Normalized) Sig (Original) alendronic acid 70 mg oral tablet (20 sources) Bisphosphonate Start: 2024 Start: 03-03-2024 Alendronate 70 mg tablet Active 70 mg PO March 03, 2024 12:00am Start: 02-11-2024 Start: 02-07-2024 amiodarone hydrochloride 200 mg oral tablet (20 sources) Antiarrhythmic Start: 07-04-2024 End: 07-04-2024 Amiodarone 200 mg tablet Active 100 mg PO DAILY July 04, 2024 10:22am Start: 04-12-2024 End: 07-04-2024 take 1 tablet by mouth once daily Amiodarone 200 mg tablet Discontinued 200 mg PO DAILY April 14, 2024 12:58pm July 04, 2024 9:44am Start: 03-03-2024 End: 04-12-2024 Amiodarone 200 mg tablet Discontinued 200 mg PO DAILY April 05, 2024 2:08pm April 12, 2024 2:23pm Take twice daily for 7 days then decrease to daily dosing apixaban 2.5 mg oral tablet (20 sources) Factor Xa Inhibitor Start: 12-15-2022 End: 11-27-2024 Apixaban (Eliquis) 2.5 mg tablet Active 0 .ROUTE .COMPLEX 180 November 27, 2024 2:49pm TAKE 1 TABLET TWICE DAILY aspirin 81 mg chewable tablet (20 sources) Platelet Aggregation Inhibitor, Nonsteroidal Anti-inflammatory Drug Start: 02-12-2024 Aspirin (Arlet Chewable Aspirin) 81 mg tablet,chewable Active 1 {tbl} PO DAILY February 12, 2024 12:00am Start: 01-22-2023 End: 04-23-2023 take 1 tablet by mouth once daily Aspirin 81 mg tablet,delayed release (DR/EC) Discontinued 81 mg PO DAILY January 22, 2023 12:00am April 23, 2023 7:39pm Start: 07-06-2018 End: 03-05-2022 take 1 tablet by mouth once daily Aspirin (Adult Aspirin Regimen) 81 mg tablet,delayed release (DR/EC) Discontinued 81 mg PO DAILY July 06, 2018 1:00am March 05, 2022 1:18pm Start: 02-24-2017 End: 06-10-2022 Start: 12-07-2014 End: 12-18-2016 take 1 tablet by mouth once daily Aspirin 81 MG Tab.Chew Discontinued 81 mg PO DAILY@0800 December 07, 2014 12:00am December 18, 2016 7:28am atorvastatin 40 mg oral tablet (20 sources) HMG-CoA Reductase Inhibitor Start: 04-02-2024 take 1 tablet by mouth at bedtime Atorvastatin 40 mg Tablet Active 40 mg PO AT BEDTIME April 02, 2024 12:00am Start: 12-15-2022 End: 04-02-2024 Atorvastatin 80 mg tablet Di scontinued 0 .ROUTE .COMPLEX October 14, 2023 3:00pm April 02, 2024 11:50am TAKE 1 TABLET AT BEDTIME carvedilol 12.5 mg oral tablet (20 sources) alpha-Adrenergic Zurdo, beta-Adrenergic Zurdo Start: 07-12-2023 End: 02-09-2024 Carvedilol 25 mg tablet Discontinued 25 mg PO .COMPLEX 180 February 09, 2024 8:58am February 09, 2024 9:11am 25 mg orally Take a 25 mg tablet with a 12.5 mg tablet TWICE DAILY to = 37.5 TWICE A DAY; must administer with a meal/food Start: 07-12-2023 End: 01-15-2025 Carvedilol 12.5 mg tablet Ac tive 12.5 mg PO .COMPLEX 180 January 15, 2025 12:52pm 12.5 mg orally Take with a 25 mg to = 37.5 mg TWICE a day; dose increased in hospital.; must administer with a meal/food Start: 04-24-2023 End: 07-12-2023 Carvedilol 25 mg tablet Discontinued 37.5 mg PO TWICE A DAY 90 April 24, 2023 3:29pm July 12, 2023 10:43am must administer with a meal/food Start: 04-24-2023 take 37.5 mg by mout h twice daily at mealtime Carvedilol Active 37.5 MG PO TWICE A DAY 90 April 24, 2023 3:29pm must administer with a meal/food Start: 02-19-2023 End: 04-24-2023 take 1 tablet by mouth twice daily at mealtime Carvedilol 25 mg tablet Discontinued 25 mg PO TWICE A DAY 180 April 23, 2023 12:48pm April 24, 2023 3:29pm must administer with a meal/food Start: 01-14-2023 End: 02-19-2023 take 1 tablet by mouth twice daily at mealtime Carvedilol 12.5 mg tablet Discontinued 12.5 mg PO TWICE A DAY 180 January 14, 2023 12:00am February 19, 2023 3:41pm must administer with a meal/food Start: 12-15-2022 End: 01-14-2023 take 1 tablet by mouth twice daily at mealtime Carvedilol 6.25 mg tablet Discontinued 6.25 mg PO TWICE A DAY 180 January 04, 2023 10:47am January 14, 2023 4:24pm must administer with a meal/food escitalopram 20 mg oral tabl et (20 sources) Serotonin Reuptake Inhibitor Start: 11-20-2024 Start: 05-21-2020 End: 07-29-2021 Start: 05-21-2020 End: 07-29-2021 Escitalopram Oxalate Discont inued MG PO May 21, 2020 12:00am July 29, 2021 3:29pm levothyroxine sodium 0.112 m g oral tablet (20 sources) l-Thyroxine Start: 02-15-2025 Start: 07-03-2024 Start: 05-02-2024 Start: 04-27-2024 Start: 12-15-2022 End: 03-03-2024 Start: 02-17-2020 take 1 tablet by dell th every other day Levothyroxine 112 MCG tablet Active 112 ug PO EVERY OTHER DAY February 17, 2020 12:00am every other day Start: 02-17-2020 Start: 07-06-2018 End: 12-15-2022 Levothyroxine 100 mcg capsul e Discontinued 100 ug PO TUTHSA 36 December 15, 2022 10:36am December 15, 2022 11:06am potassium chloride 10 meq extended release oral tablet (20 sources) Start: 03-06-2024 take 2 tablets by mouth once daily Potassium Chloride 10 mEq tablet extended release Active 20 meq PO DAILY 0 March 06, 2024 3:32pm Start: 11-29-2023 End: 03-06-2024 take 1 tablet by mouth once daily Potassium Chloride 10 mEq tablet extended release Discontinued 10 meq PO DAILY 90 February 18, 2024 9:45am March 06, 2024 3:35pm promethazine hydrochloride 1 .25 mg/ml oral solution (20 sources) Phenothiazine Start: 06-14-2024 Start: 08-31-2018 End: 11-07-2018 sacubitril 24 mg / valsartan 26 mg oral tablet (20 sources) Angiotensin 2 Receptor Zurdo Start: 11-29-2023 End: 01-10-2025 Sacubitril-Valsartan (Entresto) 24-26 mg tablet Active 1 {tbl} PO TWICE A DAY 180 January 10, 2025 11:25am Completed/Discontinued Medications Medication Drug Class(es) Dates Sig (Normalized) Sig (Original) acetaminophen 325 mg oral tablet (20 sources) Start: 03-05-2022 End: 01-04-2023 take 2 tablets by mouth every four hours as needed for pain Acetaminophen (Tylenol) 325 mg Tablet Discontinued 650 mg PO EVERY 4 HOURS NEEDED as needed for Fever, pain 0 March 05, 2022 12:00am January 04, 2023 10:44am Start: 12-18-2016 End: 04-03-2021 take 2 tablets by mouth every eight hours Acetaminophen 500 MG tablet Discontinued 1000 mg PO EVERY 8 HOURS December 18, 2016 12:00am April 03, 2021 4:46pm Start: 12-18-2016 End: 04-03-2021 take 1000 mg by mouth every eight hours Acetaminophen Discontinued 1000 MG PO EVERY 8 HOURS December 18, 2016 12:00am April 03, 2021 4:46pm acyclovir 800 mg oral tablet (20 sources) Herpesvirus Nucleoside Analog DNA Polymerase Inhibitor, Herpes Simplex Virus Nucleoside Analog DNA Polymerase Inhibitor, Herpes Zoster Virus Nucleoside Analog DNA Polymerase Inhibitor Start: 11-20-2016 End: 02-24-2017 [id number] 200 actuat albuterol 0.09 mg/actuat metered dose inhaler (20 sources) beta2-Adrenergic Agonist Start: 01-29-2011 End: 02-26-2011 amLODIPine 5 mg oral tablet (20 sources) Dihydropyridine Calcium Channel Zurod Start: 07-29-2021 End: 01-28-2022 take 1 tablet by mouth once daily Amlodipine 5 mg tablet Discontinued 5 mg PO DAILY July 29, 2021 1:00am January 28, 2022 10:03am Start: 02-11-2021 End: 07-29-2021 take 1 tablet by mouth once daily Amlodipine 10 mg tablet Discontinued 10 mg PO DAILY February 11, 2021 2:24pm July 29, 2021 3:43pm Start: 05-23-2019 End: 02-11-2021 take 1 tablet by mouth once daily Amlodipine 5 mg tablet Discontinued 5 mg PO DAILY December 10, 2020 1:28pm February 11, 2021 2:25pm Start: 03-24-2019 End: 05-23-2019 take 5 mg by mouth once daily Amlodipine 10 mg tablet Discontinued 5 mg PO DAILY March 24, 2019 4:39pm May 23, 2019 10:14am Start: 03-24-2019 End: 05-23-2019 take 5 mg by mouth once daily Amlodipine Discontinued 5 MG PO DAILY March 24, 2019 4:39pm May 23, 2019 10:14am Start: 01-19-2019 End: 03-24-2019 take 1 tablet by mouth once daily Amlodipine 10 mg tablet Discontinued 10 mg PO DAILY January 19, 2019 1:37pm March 24, 2019 4:40pm Start: 01-11-2019 End: 01-19-2019 take 1 tablet by mouth once daily Amlodipine (Norvasc) 5 mg tablet Discontinued 5 mg PO DAILY January 19, 2019 1:22pm January 19, 2019 1:38pm Start: 07-16-2010 End: 02-26-2011 azithromycin 250 mg oral tablet (20 sources) Macrolide Antimicrobial Start: 06-05-2024 End: 06-20-2024 Azithromycin 250 mg tablet Discontinued 0 PO .COMPLEX June 05, 2024 12:00am June 20, 2024 9:56am For 250 mg dose pack: take 500 mg today (day 1), then 250 mg for 4 days (days 2-5) Start: 04-12-2024 End: 04-27-2024 Start: 02-05-2014 End: 06-13-2014 Start: 06-29-2011 End: 07-06-2011 benzonatate 100 mg oral capsule (1 source) Non-narcotic Antitussive Start: 06-05-2024 End: 06-20-2024 take 1 capsule by mouth three times daily as needed for cough Benzonatate 100 mg capsule Discontinued 100 mg PO THREE TIMES A DAY as needed for cough 15 June 05, 2024 12:00am June 20, 2024 9:57am ciprofloxacin 500 mg oral tablet (20 sources) Quinolone Antimicrobial Start: 01-29-2011 End: 02-05-2011 clopidogrel 75 mg oral tablet (20 sources) [id number] Platelet Inhibitor Start: 12-15-2022 End: 05-22-2024 take 1 tablet by mouth once daily Clopidogrel 75 mg tablet Discontinued 75 mg PO DAILY May 18, 2023 3:19pm February 12, 2024 1:15am cyclobenzaprine hydrochloride 10 mg oral tablet (20 sources) Muscle Relaxant Start: 11-13-2013 End: 01-11-2014 dexamethasone 0.5 mg oral tablet (1 source) Corticosteroid Start: 04-02-2024 End: 06-05-2024 take 2 tablets by mouth once daily Dexamethasone 0.5 mg tablet Discontinued 1 mg PO DAILY 6 April 02, 2024 12:00am June 05, 2024 10:58am diflorasone diacetate 0.5 mg/ml topical cream (20 sources) Corticosteroid Start: 06-16-2021 End: 05-22-2024 Start: 08-11-2012 End: 01-16-2013 24 hr dilTIAZem hydrochloride 120 mg extended release oral capsule (20 sources) Calcium Channel Zurdo Start: 02-12-2024 End: 05-22-2024 take 1 capsule by mouth once daily Diltiazem Hcl 120 mg Capsule,Extended Release 24hr Discontinued 120 mg PO DAILY February 12, 2024 12:00am March 03, 2024 12:32pm Start on 02/13/2024 docusate sodium 50 mg / sennosides, retirement 8.6 mg oral tablet (20 sources) Start: 03-05-2022 End: 07-17-2022 Sennosides-Docusate Sodium (Stool Softener-Stimulant Laxat) 8.6-50 mg Tablet Discontinued 2 {tbl} PO TWICE A DAY 0 March 05, 2022 12:00am July 17, 2022 11:11am doxycycline monohydrate 100 mg oral capsule (15 sources) Tetracycline-class Drug Start: 03-05-2022 End: 07-17-2022 take 1 capsule by mouth twice daily Doxycycline Monohydrate 100 mg Capsule Discontinued 100 mg PO TWICE A DAY 14 March 05, 2022 12:00am July 17, 2022 11:09am Antibiotics until 03/12/22 ferrous sulfate 325 mg oral tablet (20 sources) Start: 03-26-2022 End: 05-22-2024 FLUoxetine 40 mg oral capsule (20 sources) Serotonin Reuptake Inhibitor Start: 05-24-2019 End: 04-18-2020 Start: 05-09-2018 End: 05-09-2018 Start: 12-07-2014 End: 05-21-2020 take 2 capsules by mouth once daily Fluoxetine 20 MG capsule Discontinued 40 mg PO DAILY December 07, 2014 12:00am May 21, 2020 1:20pm Start: 12-07-2014 End: 05-21-2020 take 40 mg by mouth once daily Fluoxetine Discontinued 40 MG PO DAILY December 07, 2014 12:00am May 21, 2020 1:20pm Start: 07-16-2010 End: 02-26-2011 furosemide 40 mg oral tablet (20 sources) Loop Diuretic Start: 03-06-2024 End: 04-02-2024 take 1 tablet by mouth once daily as needed for edema Furosemide 40 mg tablet Discontinued 40 mg PO daily as needed for edema March 21, 2024 10:00pm April 02, 2024 11:51am Start: 11-29-2023 End: 02-12-2024 take 1 tablet by mouth once daily Furosemide 20 mg tablet Discontinued 20 mg PO DAILY November 29, 2023 3:29pm February 12, 2024 1:17am Start: 02-27-2019 End: 08-15-2019 take 1 tablet by mouth once daily Furosemide 20 mg tablet Discontinued 20 mg PO DAILY February 27, 2019 12:00am August 15, 2019 2:49pm hydroCHLOROthiazide 25 mg oral tablet (20 sources) Thiazide Diuretic Start: 07-06-2018 End: 10-26-2018 levoFLOXacin 250 mg oral tablet (20 sources) Quinolone Antimicrobial Start: 02-03-2011 End: 02-10-2011 lisinopril 10 mg oral tablet (20 sources) Angiotensin Converting Enzyme Inhibitor Start: 03-23-2023 End: 04-09-2023 take 2 tablets by mouth twice daily Lisinopril 10 mg tablet Discontinued 20 mg PO TWICE A DAY 180 March 23, 2023 1:10pm April 09, 2023 3:06pm Start: 03-23-2023 End: 04-09-2023 take 20 mg by mouth twice daily Lisinopril Discontinue d 20 MG PO TWICE A DAY 180 March 23, 2023 1:10pm April 09, 2023 3:06pm Start: 01-05-2023 End: 03-23-2023 take 1 tablet by mouth twice daily Lisinopril 10 mg tablet Discontinued 10 mg PO TWICE A DAY 180 January 05, 2023 3:57pm March 23, 2023 1:11pm Start: 12-15-2022 End: 01-05-2023 take 1 tablet by mouth once daily Lisinopril 10 mg tablet Discontinued 10 mg PO DAILY 90 January 04, 2023 10:46am January 05, 2023 3:58pm Start: 02-14-2016 End: 02-07-2024 Start: 12-07-2014 End: 09-16-2017 take 2 tablets by mouth once daily Lisinopril 10 MG tablet Discontinued 20 mg PO DAILY December 07, 2014 12:00am September 16, 2017 1:42pm Start: 12-07-2014 End: 09-16-2017 take 20 mg by mouth once daily Lisinopril Discontinued 20 MG PO DAILY December 07, 2014 12:00am September 16, 2017 1:42pm LORazepam 0.5 mg oral tablet (20 sources) Benzodiazepine Start: 02-19-2020 End: 06-16-2021 losartan potassium 50 mg oral tablet (7 sources) Angiotensin 2 Receptor Zurdo Start: 04-09-2023 End: 11-29-2023 take 1 tablet by mouth twice daily Losartan 50 mg tablet Discontinued 50 mg PO TWICE A DAY 180 June 03, 2023 10:26am November 29, 2023 3:26pm meclizine hydrochloride 25 mg oral tablet (20 sources) Antiemetic Start: 08-19-2011 End: 02-12-2012 meloxicam 7.5 mg oral tablet (20 sources) Nonsteroidal Anti-inflammatory Drug Start: 01-11-2014 End: 07-10-2014 24 hr metoprolol succinate 50 mg extended release oral tablet (20 sources) beta-Adrenergic Zurdo Start: 04-01-2013 End: 06-02-2023 Nut.Tx.Comp. Immune Systm,Re g ([facility]ure [facility]) 0.08-1.4 gram-kcal/mL Liquid (15 sources) Start: 03-05-2022 End: 07-17-2022 Nut.Tx.Comp. Immune Systm,Re g (Ensure Surgery) 0.08-1.4 gram-kcal/mL Liquid Discontinued 237 mL PO 3 TIMES DAILY WITH MEALS 0 March 05, 2022 12:00am July 17, 2022 11:10am Start: 03-05-2022 End: 07-17-2022 Nut.Tx.Comp. Immune Systm,Re g (Ensure Surgery) 0.08-1.4 gram-kcal/mL Liquid Discontinued 237 ML PO 3 TIMES DAILY WITH MEALS 0 March 05, 2022 12:00am July 17, 2022 11:10am Start: 03-05-2022 Nut.Tx.Comp. I mmune Systm,Reg ([facility]ure [facility]) 0.08-1.4 gram-kcal/mL Liquid Active 237 ML PO 3 TIMES DAILY WITH MEALS March 05, 2022 12:00am oxyCODONE hydrochloride 5 mg oral tablet (20 sources) Opioid Agonist Start: 05-31-2020 End: 06-16-2021 Start: 05-21-2020 End: 04-03-2021 Oxycodone 5 mg tablet Discon tinued PO May 21, 2020 12:00am April 03, 2021 4:46pm Start: 05-21-2020 End: 04-03-2021 Oxycodone Discontinued PO Se pt2019 12:00am April 03, 2021 4:46pm Start: 03-13-2020 End: 04-04-2020 pantoprazole 40 mg delayed release oral tablet (20 sources) Proton Pump Inhibitor Start: 03-05-2022 End: 07-17-2022 take 1 tablet by mouth once daily Pantoprazole 40 mg tablet,delayed release (DR/EC) Discontinued 40 mg PO DAILY 30 March 05, 2022 12:00am July 17, 2022 11:11am pravastatin sodium 20 mg oral tablet (20 sources) HMG-CoA Reductase Inhibitor rivaroxaban 10 mg oral tablet (20 sources) Factor Xa Inhibitor Start: 03-05-2022 End: 07-17-2022 take 1 tablet by mouth once daily Rivaroxaban (Xarelto) 10 mg Tablet Discontinued 10 mg PO DAILY March 05, 2022 12:00am July 17, 2022 11:11am salmon calcitonin 200 unt/actuat nasal spray (20 sources) Calcitonin Start: 12-08-2018 End: 03-13-2020 tetracycline hydrochloride 500 mg oral capsule (20 sources) Tetracycline-class Antimicrobial Start: 07-16-2010 End: 12-24-2010 traMADol hydrochloride 50 mg oral tablet (20 sources) Opioid Agonist Start: 11-28-2016 End: 02-24-2017 Problems Active Problems Problem Classification Problem Date Documented Da te Episodic/Chronic Abdominal pain (20 sources) Abdominal pain; Translations: [Unspecified abdominal pain] 12-30-2015 Episodic Acute and unspecified renal failure (20 sources) Injury of kidney; Translations: [Acute kidney failure, unspecified] Episodic Acute posthemorrhagic anemia (20 sources) Acute posthemorrhagic anemia; Translations: [Acute posthemorrhagic anemia] Episodic Adjustment disorders (20 sources) Grief finding; Translations: [Adjustment disorder with depressed mood] 06-01-2023 Chronic Administrative/social admission (20 sources) Issue of repeat prescriptions 08-11-2012 Episodic Anxiety disorders (20 sources) Anxiety; Translations: [Anxiety disorder, unspecified] 07-06-2018 Chronic Cardiac dysrhythmias (20 sources) Ventricular premature beats; Translations: [Ventricular premature depolarization] Onset: 03-06-2024 01-18-2019 Chronic Chronic obstructive pulmonary disease and bronchiectasis (1 source) Bronchitis; Translations: [Bronchitis, not specified as acute or chronic] 06-13-2024 Episodic Chronic ulcer of skin (20 sources) Chronic ulcer of unspecified site 01-16-2013 Chronic Complications of surgical procedures or medical care (20 sources) Periprosthetic fracture; Translations: [Periprosthetic fracture around other internal prosthetic joint, initial encounter] Episodic Conditions associated with dizziness or vertigo (20 sources) Acute labyrinthitis; Translations: [Labyrinthitis, unspecified ear] 08-12-2011 Episodic Coronary atherosclerosis and other heart disease (20 sources) Coronary atherosclerosis; Translations: [Atherosclerotic heart disease of sioux coronary artery without angina pectoris] Onset: 10-28-2022 07-06-2018 Chronic Deficiency and other anemia (20 sources) Anemia; Translations: [Anemia, unspecified] 06-01-2023 Episodic Disorders of lipid metabolism (20 sources) Hyperlipidemia; Translations: [Hyperlipidemia, unspecified] 06-01-2023 Chronic Diverticulosis and diverticulitis (20 sources) Diverticulosis of sigmoid colon; Translations: [Diverticulosis of large intestine without perforation or abscess without bleeding] 06-01-2023 Chronic E Codes: Fall (20 sources) Fall; Translations: [Unspecified fall, initial encounter] Episodic Esophageal disorders (20 sources) Gastro-esophageal reflux disease with esophagitis; Translations: [Esophageal reflux] 06-01-2023 Chronic Essential hypertension (20 sources) Essential hypertension; Translations: [Essential (primary) hypertension] Chronic Headache; including migraine (16 sources) Headache; Translations: [Headache] 04-03-2021 Episodic Heart valve disorders (20 sources) Aortic stenosis, non-rheumatic ; Translations: [Nonrheumatic aortic (valve) stenosis] Chronic Immunizations and screening for infectious disease (20 sources) Contact with and (suspected) exposure to other viral communicable diseases; Translations: [Contact with or suspected exposure to other viral communicable disease] 05-26-2021 Episodic Malaise and fatigue (20 sources) Fatigue; Translations: [Other fatigue] 05-04-2018 Episodic Mood disorders (20 sources) Recurrent major depressive episodes, moderate ; Translations: [Major depressive disorder, recurrent, moderate] 06-01-2023 Chronic Nausea and vomiting (20 sources) Nausea; Translations: [Nausea] 03-21-2020 Episodic Neoplasms of unspecified nature or uncertain behavior (20 sources) Neoplasm of uncertain behavior of skin; Translations: [Neoplasm of uncertain behavior of skin] 2010 Episodic Noninfectious gastroenteritis (20 sources) Acute gastroenteritis; Translations: [Noninfective gastroenteritis and colitis, unspecified] 12-10-2014 Episodic Nonspecific chest pain (1 source) Chest pain; Translations: [Chest pain, unspecified] 03-03-2024 Episodic Nutritional deficiencies (20 sources) Malnutrition (calorie); Translations: [Unspecified protein-calorie malnutrition] Onset: 06-20-2024 06-01-2023 Chronic Osteoporosis (20 sources) Osteoporosis; Translations: [Age-related osteoporosis without current pathological fracture] 06-01-2023 Chronic Other aftercare (20 sources) Long-term current use of aspirin; Translations: [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] 06-01-2023 Episodic Other aftercare (20 sources) Post-discharge follow-up; Translations: [Encounter for follow-up examination after completed treatment for conditions other than malignant neoplasm] 04-28-2023 Episodic Other aftercare (20 sources) Drug therapy finding; Translations: [Other 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 truck driver (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) drug therapy] 06-01-2023 Episodic Other aftercare (20 sources) High risk drug monitoring status; Translations: [Other 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 truck driver (current) drug therapy] 07-11-2014 Episodic Other aftercare (20 sources) Long-term (current) use of other medications 11-10-2010 Episodic Other aftercare (1 source) Long-term current use of amiodarone; Translations: [Other chcf (current) drug therapy] 06-20-2024 Episodic Other aftercare (2 sources) Other 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 truck driver (current) drug therapy; Translations: [Other chcf (current) drug therapy] Onset: 07-20-2024 Episodic Other and unspecified benign neoplasm (20 sources) History of adenomatous polyp of colon; Translations: [Personal history of colonic polyps] 06-01-2023 Episodic Other circulatory disease (5 sources) Carotid bruit; Translations: [Other specified symptoms and signs involving the circulatory and respiratory systems] 04-24-2023 Episodic Other circulatory disease (20 sources) History of cardiac arrhythmia; Translations: [Personal history of other diseases of the circulatory system] 06-01-2023 Episodic Other fractures (20 sources) Compression fracture of lumbar spine; Translations: [Wedge compression fracture of unspecified lumbar vertebra, sequela] 06-01-2023 Episodic Other fractures (20 sources) Closed fracture of pelvis; Translations: [Fracture of unspecified parts of lumbosacral spine and pelvis, sequela] 11-07-2018 Episodic Other gastrointestinal disorders (16 sources) History of gastritis; Translations: [Personal history of other diseases of the digestive system] 07-06-2018 Episodic Other gastrointestinal disorders (15 sources) Occult blood in stools; Translations: [Other fecal abnormalities] 02-28-2022 Episodic Other gastrointestinal disorders (5 sources) Other fecal abnormalities; Translations: [Nonspecific abnormal findings in stool contents] Episodic Other infections; including parasitic (20 sources) History of herpes zoster; Translations: [Personal history of other infectious and parasitic diseases] 06-01-2023 Episodic Other infections; including parasitic (14 sources) Personal history of other infectious and parasitic diseases 05-22-2024 Episodic Other inflammatory condition of skin (20 sources) Rosacea; Translations: [Rosacea, unspecified] 07-16-2010 Chronic Other injuries and conditions due to external causes (20 sources) H/O: hip fracture; Translations: [Personal history of (healed) traumatic fracture] 06-01-2023 Episodic Other injuries and conditions due to external causes (20 sources) History of fall; Translations: [History of falling] 11-28-2018 Episodic Other lower respiratory disease (20 sources) Cough; Translations: [Cough] 06-29-2011 Episodic Other lower respiratory disease (20 sources) Solitary nodule of lung; Translations: [Solitary pulmonary nodule] 12-31-2010 Episodic Other lower respiratory disease (1 source) Respiratory insufficiency; Translations: [Other abnormalities of breathing] 04-10-2024 Episodic Other nutritional; endocrine; and metabolic disorders (20 sources) Unintentional weight loss; Translations: [Abnormal weight loss] 05-14-2016 Episodic Other screening for suspected conditions (not mental disorders or infectious disease) (20 sources) Patient encounter status; Translations: [Encounter for screening mammogram for malignant neoplasm of breast] 01-28-2022 Episodic Other skin disorders (20 sources) Seborrheic keratosis; Translations: [Other seborrheic keratosis] 06-01-2023 Episodic Other upper respiratory disease (7 sources) Anterior epistaxis; Translations: [Epistaxis] 03-05-2023 Episodic Other upper respiratory disease (20 sources) Bleeding from nose; Translations: [Epistaxis] Onset: 03-05-2023 06-01-2023 Episodic Other upper respiratory infections (20 sources) Acute maxillary sinusitis; Translations: [Acute maxillary sinusitis, unspecified] 02-05-2014 Episodic Nataliya-; endo-; and myocarditis; cardiomyopathy (except that caused by tuberculosis or sexually transmitted disease) (20 sources) Cardiomyopathy; Translations: [Other cardiomyopathies] Onset: 01-28-2022 Chronic Nataliya-; endo-; and myocarditis; cardiomyopathy (except that caused by tuberculosis or sexually transmitted disease) (20 sources) Acute myocarditis; Translations: [Acute myocarditis, unspecified] 05-27-2011 Episodic Pneumonia (except that caused by tuberculosis or sexually transmitted disease) (20 sources) Pneumonia; Translations: [Pneumonia, unspecified organism] 07-06-2011 Episodic Residual codes; unclassified (20 sources) Body mass index 20-24 - normal; Translations: [Body mass index (BMI) 24.0-24.9, adult] 06-01-2023 Episodic Screening and history of mental health and substance abuse codes (20 sources) Ex-smoker; Translations: [Personal history of nicotine dependence] 04-28-2023 Episodic Spondylosis; intervertebral disc disorders; other back problems (20 sources) Chronic back pain ; Translations: [Dorsalgia, unspecified] 06-01-2023 Episodic Sprains and strains (20 sources) Low back strain; Translations: [Strain of muscle, fascia and tendon of lower back, initial encounter] 01-11-2014 Episodic Thyroid disorders (20 sources) Hypothyroidism; Translations: [Hypothyroidism, unspecified] Onset: 02-23-2025 06-01-2023 Chronic Unclassified (20 sources) 03-26-2022 Unclassified (20 sources) 03-26-2022 Unclassified (20 sources) 03-26-2022 Unclassified (1 source) Cough, unspecified; Translations: [Cough, unspecified] Onset: 06-26-2024 Viral infection (20 sources) Herpes zoster; Translations: [Zoster without complications] 11-28-2016 Episodic Viral infection (2 sources) COVID-19; Translations: [COVID-19] Onset: 04-02-2024 Past or Other Problems Problem Classification Problem Date Documented Da te Episodic/Chronic Coronary atherosclerosis and other heart disease (9 sources) Presence of coronary angioplasty implant and graft; Translations: [Percutaneous transluminal coronary angioplasty status] Onset: 01-21-2023 01-04-2023 Episodic Fluid and electrolyte disorders (20 sources) Hyponatremia; Translations: [Hypo-osmolality and hyponatremia] Onset: 04-03-2024 Episodic Other circulatory disease (5 sources) Other specified symptoms and signs involving the circulatory and respiratory systems; Translations: [Other symptoms involving cardiovascular system] Onset: 06-20-2024 04-24-2023 Episodic Other fractures (1 source) Collapsed vertebra, not elsewhere classified, lumbar region, initial encounter for fracture; Translations: [Collapsed vertebra, not elsewhere classified, lumbar region, initial encounter for fracture] Onset: 07-25-2024 Episodic Other lower respiratory disease (1 source) Other abnormalities of breathing; Translations: [Other abnormalities of breathing] Onset: 04-02-2024 Episodic Unclassified (20 sources) 02-15-2015 Results Test Name Value Interpretation Reference Range Facility Cardiology Visit Reporton Cardiology Visit Report [facility] [address] [place] [address] OFFICE VISIT Date of Service: 02/05/25 MR#: [id number] Acct: [id number] Name: DOMONIQUE MARI Rep #: [id number] : 1940 Provider: [facility] CHIE[facility]-C Zion H Jodi f Age/Sex: 84/F Location: [facility] Status: Signed HPI HPI History of Present Illness Details: DOMONIQUE MARI, is a 83 F who presents to the office today for a cardiovascular follow-up visit. She is a lady with a history of hypertension, aortic valve stenosis, premature ventricular complexes, and cardiomyopathy which appears to have resolved. Patient presented to [facility] in [place] in October of this year with complaints of right upper quadrant pain radiating to her back, and new onset atrial fibrillation. She underwent a cardiac catheterization which demonstrated an ejection fraction of 55 to 60%, left anterior descending coronary artery moderately calcific diffuse 40 to 50% and tandem focal 60 to 80% narrowing. Large D1 chronically occluded with long subtotal proximal and mid vessel segments with SIMON II flow, left circumflex coronary artery large first and small OM 2, OM 3, widely patent, right coronary artery large dominant; diffuse 40 to 60% and tandem 60 to 80% narrowing treated with overlapping 4.0 x 38, 4.0 x 8 and a 4.0 x 30 mm Lizella LEOBARDO with 0% IVUS and angiographic residual narrowing and SIMON III flow distally. Ostial PDA eccentric 60 to 70% narrowing angiographically and no significant narrowing on IVUS. The plan was to have a staged procedure of the LAD???D1 in 3 to 4 weeks. Patient decided to return home to have this done. Patient underwent a successful LEOBARDO to the pLAD on 01/21/2023. Patient was in cardiac rehab on 04/23/2023 when she was noted to have a 10 beat run of nonsustained ventricular tachycardia. She was asymptomatic with this. She was sent to the emergency room and admitted for observation. Her echocardiogram on 04/23/2023 demonstrated normal left ventricular systolic function, an ejection fraction of 65%. An outpatient stress test was recommended. Patient presented to the emergency room 02/11/2024 with complaints of palpitations. She described this as a racing sensation into her throat. Her EKG demonstrated atrial fibrillation RVR with a ventricular rate of 146. She was admitted for further evaluation. During her hospitalization, she was started on Cardizem, and converted to sinus rhythm. She was discharged home. She denies chest, arm, jaw, or neck discomfort. She denies palpitations. She states bilateral lower extremity edema that she considers to be mild. She denies claudication. She states shortness of breath with activity. She denies shortness of breath at rest, orthopnea, or PND. She denies chronic cough. She denies significant, sudden weight gain. She denies lightheadedness, dizziness, near-syncope, or syncope. She denies blood in urine, blood in stool, or epistaxis. He denies fever with chills. She denies myalgia. She states fatigue. Her exercise level has remained stable. Intake Vital Signs 06/20/24 09:41 02/05/25 13:06 Height 5 ft 2 in 5 ft 2 in Weight: 128 lb BMI 23.3 BP 182/92 H Blood Pressure Location Lt brachial Position Sitting Respiration 20 H Pulse 65 Pulse Source Monitor Intake Visit Reasons: 7 M FU Personnel Monitor Required: No Accompanied by: Self Is patient in pain?: No Allergies imiquimod (From Aldara) Allergy (Verified 02/05/25 13:12) Unknown Penicillins (PCN) Allergy (Verified 02/05/25 13:12) Anaphylaxis dapagliflozin (From Farxiga) Adverse Reaction (Intermediate, Verified 02/05/25 13:12) Lightheaded and faint ciprofloxacin (From Cipro) Adverse Reaction (Verified 02/05/25 13:12) Other furosemide Adverse Reaction (Verified 02/05/25 13:12) low saodium hydrochlorothiazide Adverse Reaction (Verified 06/20/24 09:56) hyponatremia magnesium Adverse Reaction (Verified 02/05/25 13:12) Nausea prednisone Adverse Reaction (Verified 02/05/25 13:12) Upset Stomach Medications ???Medication ???Instructions ???Recorded ???Confirmed ???Type levothyroxine 112 mcg tablet 112 mcg PO QODAY hypothroidism 02/05/25 History escitalopram oxalate 20 mg tablet 20 mg PO DAILY anxiety 07/29/21 0 02/05/25 History carvedilol 25 mg tablet 25 mg PO .COMPLEX waiting on mail 02/09/24 02/05/25 Rx in RX #180 tabs aspirin 81 mg chewable tablet 1 tab PO DAILY heart health 02/05/25 History (Arlet Chewable Low Dose Aspirin) alendronate 70 mg tablet 70 mg PO bone health 03/03/24 0 02/05/25 History potassium chloride 10 mEq 20 meq (2 x 10 mEq) PO DAILY 03/0602/05/25 Rx tablet,extended release supplement #0 tabs levothyroxine 100 mcg tablet 100 mcg PO QODAY thyroid 03/31/24 02/05/25 History atorvastatin 40 mg tablet 40 mg PO QHS 90 (more content not included)... Normal [facility] CBC-Complete Blood Cnt No Di ffon 09-18-2024 Erythrocyte distribution width (RBC) [Ratio] 15.0 % High 11.6-14.6 [facility] Comment on above: Order Comment: 'TROP ' Serial specimen #1, #2 or #3: 1 Performed By: #### L 500.4050, L501.4020, L100.0100 #### [facility] [address] [place], [address] Order Comment: 1 Y Result Comment: CELESTE G ACCOUNT Performed By: #### L [id number], L500.2500, L100.0100 #### [facility] [address] [place], [address] Hematocrit (Bld) [Volume fraction] 32.5 % Low 37-47 [facility] Comment on above: Order Comment: 'TROP ' Serial specimen #1, #2 or #3: 1 Performed By: #### L 500.4050, [id number], L100.0100 #### [facility] [address] [place], [address] Order Comment: 1 Y Result Comment: WRON G ACCOUNT Performed By: #### L 501.5425, L500.2500, L100.0100 #### [facility] [address] [place], [address] Hemoglobin (Bld) [Mass/Vol] 10.0 g/dL Low 12.0-15.0 [facility] Comment on above: Order Comment: 'TROP ' Serial specimen #1, #2 or #3: 1 Performed By: #### L 500.4050, [id number], L100.0100 #### [facility] [address] [place], [address] Order Comment: 1 Y Result Comment: WRON G ACCOUNT Performed By: #### L 501.5425, L500.2500, L100.0100 #### [facility] [address] [place], [address] MCH (RBC) [Entitic mass] 28.4 pg Normal 27.0-32.0 [facility] Comment on above: Order Comment: 'TROP ' Serial specimen #1, #2 or #3: 1 Performed By: #### L 500.4050, [id number], L100.0100 #### [facility] [address] [place], [address] Order Comment: 1 Y Result Comment: WRON G ACCOUNT Performed By: #### L 501.5425, L500.2500, L100.0100 #### [facility] [address] [place], [address] MCHC (RBC) [Mass/Vol] 30.8 g/dL Low 32-36 [facility] Comment on above: Order Comment: 'TROP ' Serial specimen #1, #2 or #3: 1 Performed By: #### L 500.4050, [id number], L100.0100 #### [facility] [address] [place], [address] Order Comment: 1 Y Result Comment: WRON G ACCOUNT Performed By: #### L 501.5425, L500.2500, L100.0100 #### [facility] [address] [place], [address] MCV (RBC) [Entitic vol] 92.3 fL Normal 81-99 [facility] Comment on above: Order Comment: 'TROP ' Serial specimen #1, #2 or #3: 1 Performed By: #### L 500.4050, [id number], L100.0100 #### [facility] [address] [place], [address] Order Comment: 1 Y Result Comment: CATHYON G ACCOUNT Performed By: #### L 501.5425, L500.2500, L100.0100 #### [facility] [address] [place], [address] Platelet mean volume (Bld) [Entitic vol] 10.2 fL Normal 6.2-12.0 [facility] Comment on above: Order Comment: 'TROP ' Serial specimen #1, #2 or #3: 1 Performed By: #### L 500.4050, [id number], L100.0100 #### [facility] [address] [place], [address] Order Comment: 1 Y Result Comment: WRON G ACCOUNT Performed By: #### L 501.5425, L500.2500, L100.0100 #### [facility] [address] [place], [address] Platelets (Bld) [#/Vol] 219 10*3/uL Normal 150-450 [facility] Comment on above: Order Comment: 'TROP ' Serial specimen #1, #2 or #3: 1 Performed By: #### L 500.4050, [id number], L100.0100 #### [facility] [address] [place], [address] Order Comment: 1 Y Result Comment: WRON G ACCOUNT Performed By: #### L 501.5425, L500.2500, L100.0100 #### [facility] [address] [place], [address] RBC (Bld) [#/Vol] 3.52 10*6/uL Low 4.2-5.4 [facility] Comment on above: Order Comment: 'TROP ' Serial specimen #1, #2 or #3: 1 Performed By: #### L 500.4050, [id number], L100.0100 #### [facility] [address] [place], [address] Order Comment: 1 Y Result Comment: CATHYANDERSON G ACCOUNT Performed By: #### L 501.5425, L500.2500, L100.0100 #### [facility] [address] [place], [address] RDW SD 50.1 fl High 35.1-43.9 [facility] Comment on above: Order Comment: 'TROP ' Serial specimen #1, #2 or #3: 1 Performed By: #### L 500.4050, [id number], L100.0100 #### [facility] [address] [place], [address] Order Comment: 1 Y Result Comment: WRANDERSON G ACCOUNT Performed By: #### L 501.5425, L500.2500, L100.0100 #### [facility] [address] [place], [address] WBC (Bld) [#/Vol] 7.7 10*3/uL Normal 4.4-11.0 [facility] Comment on above: Order Comment: 'TROP ' Serial specimen #1, #2 or #3: 1 Performed By: #### L 500.4050, [id number], L100.0100 #### [facility] [address] [place], [address] Order Comment: 1 Y Result Comment: WRON G ACCOUNT Performed By: #### L 501.5425, L500.2500, L100.0100 #### [facility] [address] [place], [address] Erythrocyte distribution width (RBC) [Ratio] 14.4 % Normal 11.6-14.6 [facility] Comment on above: Order Comment: 'TROP ' Serial specimen #1, #2 or #3: 1 Result Comment: CELESTE G PATIENT Re transmit patient results per facility Performed By: #### L 500.4050, L501.4020, L100.0100 #### [facility] [address] [place], [address] Result Comment: Re t ransmit patient results per facility MCHC (RBC) [Mass/Vol] 32.4 g/dL Normal 32-36 [facility] Comment on above: Order Comment: 'TROP ' Serial specimen #1, #2 or #3: 1 Result Comment: CATHYON G PATIENT Re transmit patient results per facility Performed By: #### L 500.4050, L501.4020, L100.0100 #### [facility] [address] [place], [place], [id number] Result Comment: Re t ransmit patient results per facility Platelet mean volume (Bld) [Entitic vol] 10.1 fL Normal 6.2-12.0 [facility] Comment on above: Order Comment: 'TROP ' Serial specimen #1, #2 or #3: 1 Result Comment: ANDERSON PATIENT Re transmit patient results per facility Performed By: #### L 500.4050, L501.4020, L100.0100 #### [facility] [address] [place], [place], [address] Result Comment: Re t ransmit patient results per facility Platelets (Bld) [#/Vol] 322 10*3/uL Normal 150-450 [facility] Comment on above: Order Comment: 'TROP ' Serial specimen #1, #2 or #3: 1 Result Comment: CELESTE PATIENT Re transmit patient results per facility Performed By: #### L 500.4050, L501.4020, L100.0100 #### [facility] [address] [place], [place], [address] Result Comment: Re t ransmit patient results per facility RDW SD 46.5 fl High 35.1-43.9 [facility] Comment on above: Order Comment: 'TROP ' Serial specimen #1, #2 or #3: 1 Result Comment: WRON G PATIENT Re transmit patient results per facility Performed By: #### L 500.4050, L501.4020, L100.0100 #### [facility] [address] [place], [place], [id number] Result Comment: Re t ransmit patient results per facility Hematocrit (Bld) [Volume fraction] 36.1 % Low 37-47 [facility] Comment on above: Order Comment: 'TROP ' Serial specimen #1, #2 or #3: 1 Result Comment: WRANDERSON G PATIENT Re transmit patient results per facility Performed By: #### L 500.4050, L501.4020, L100.0100 #### [facility] [address] [place], [place], [id number] Result Comment: Re t ransmit patient results per facility Hemoglobin (Bld) [Mass/Vol] 11.7 g/dL Low 12.0-15.0 [facility] Comment on above: Order Comment: 'TROP ' Serial specimen #1, #2 or #3: 1 Result Comment: ANDERSON PATIENT Re transmit patient results per facility Performed By: #### L 500.4050, L501.4020, L100.0100 #### [facility] [address] [place], [place], [address] Result Comment: Re t ransmit patient results per facility MCH (RBC) [Entitic mass] 29.1 pg Normal 27.0-32.0 [facility] Comment on above: Order Comment: 'TROP ' Serial specimen #1, #2 or #3: 1 Result Comment: WRANDERSON G PATIENT Re transmit patient results per facility Performed By: #### L 500.4050, L501.4020, L100.0100 #### [facility] [address] [place], [place], [id number] Result Comment: Re t ransmit patient results per facility MCV (RBC) [Entitic vol] 89.8 fL Normal 81-99 [facility] Comment on above: Order Comment: 'TROP ' Serial specimen #1, #2 or #3: 1 Result Comment: WRON G PATIENT Re transmit patient results per facility Performed By: #### L 500.4050, L501.4020, L100.0100 #### [facility] [address] [place], [address] Result Comment: Re t ransmit patient results per facility RBC (Bld) [#/Vol] 4.02 10*6/uL Low 4.2-5.4 [facility] Comment on above: Order Comment: 'TROP ' Serial specimen #1, #2 or #3: 1 Result Comment: CELESTE Sifuentes PATIENT Re transmit patient results per facility Performed By: #### L 500.4050, L501.4020, L100.0100 #### [facility] [address] [place], [place], [id number] Result Comment: Re t ransmit patient results per facility WBC (Bld) [#/Vol] 15.0 10*3/uL High 4.4-11.0 [facility] Comment on above: Order Comment: 'TROP ' Serial specimen #1, #2 or #3: 1 Result Comment: CELESTE Sifuentes PATIENT Re transmit patient results per facility Performed By: #### L 500.4050, L501.4020, L100.0100 #### [facility] [address] [place], [place], [address] Result Comment: Re t ransmit patient results per facility Comprehensive Metabolic Prof ilon 09-18-2024 Chloride [Moles/Vol] 98 mmol/L Normal 98-107 [facility] Comment on above: Order Comment: 'TROP ' Serial specimen #1, #2 or #3: 1 Result Comment: CELESTE Sifuentes PATIENT Re transmit patient results per facility Performed By: #### L 500.4050, L501.4020, L100.0100 #### [facility] [address] [place], [place], [address] Result Comment: Re t ransmit patient results per facility CO2 [Moles/Vol] 32.0 mmol/L Normal 21.0-32.0 [facility] Comment on above: Order Comment: 'TROP ' Serial specimen #1, #2 or #3: 1 Result Comment: WRON G PATIENT Re transmit patient results per facility Performed By: #### L 500.4050, L501.4020, L100.0100 #### [facility] [address] [place], [address] Result Comment: Re t ransmit patient results per facility GAP 6 Normal 5-15 [facility] Comment on above: Order Comment: 'TROP ' Serial specimen #1, #2 or #3: 1 Result Comment: WRON G PATIENT Re transmit patient results per facility Performed By: #### L 500.4050, L501.4020, L100.0100 #### [facility] [address] [place], [address] Result Comment: Re t ransmit patient results per facility Potassium [Moles/Vol] 3.9 mmol/L Normal 3.5-5.1 [facility] Comment on above: Order Comment: 'TROP ' Serial specimen #1, #2 or #3: 1 Result Comment: WRON PATIENT Re transmit patient results per facility Performed By: #### L 500.4050, L501.4020, L100.0100 #### [facility] [address] [place], [address] Result Comment: Re t ransmit patient results per facility Sodium [Moles/Vol] 136 mmol/L Normal 136-145 [facility] Comment on above: Order Comment: 'TROP ' Serial specimen #1, #2 or #3: 1 Result Comment: WRON G PATIENT Re transmit patient results per facility Performed By: #### L 500.4050, L501.4020, L100.0100 #### [facility] [address] [place], [address] Result Comment: Re t ransmit patient results per facility ALK P 62 U/L Normal 45-117 [facility] Comment on above: Order Comment: 'TROP ' Serial specimen #1, #2 or #3: 1 Result Comment: WRANDERSON G PATIENT Re transmit patient results per facility Performed By: #### L 500.4050, L501.4020, L100.0100 #### [facility] [address] [place], [address] Result Comment: Re t ransmit patient results per facility ALT [Catalytic activity/Vol] 32 U/L Normal 13-56 [facility] Comment on above: Order Comment: 'TROP ' Serial specimen #1, #2 or #3: 1 Result Comment: CELESTE Sifuentes PATIENT Re transmit patient results per facility Performed By: #### L 500.4050, L501.4020, L100.0100 #### [facility] [address] [place], [place], [address] Result Comment: Re t ransmit patient results per facility AST [Catalytic activity/Vol] 22 U/L Normal 15-37 [facility] Comment on above: Order Comment: 'TROP ' Serial specimen #1, #2 or #3: 1 Result Comment: CELESTE Sifuentes PATIENT Re transmit patient results per facility Performed By: #### L 500.4050, L501.4020, L100.0100 #### [facility] [address] [place], [place], [address] Result Comment: Shirlene t ransmit patient results per facility Bilirubin [Mass/Vol] 1.70 mg/dL High 0.20-1.00 [facility] Comment on above: Order Comment: 'TROP ' Serial specimen #1, #2 or #3: 1 Result Comment: ECLESTE Sifuentes PATIENT Re transmit patient results per facility AMENDED REPORT 09/18/24 0959 T BILI previously reported as: 1.70 H mg/dL For patients on eltrombopag therapy, use of Dimension Bath TBIL is not recommended. Performed By: #### L 500.4050, L501.4020, L100.0100 #### [facility] [address] [place], [place], [address] Result Comment: Re t ransmit patient results per facility AMENDED REPORT 09/18/24 0959 T BILI previously reported as: 1.70 H mg/dL For patients on eltrombopag therapy, use of Dimension Bath TBIL is not recommended. Albumin/Globulin [Mass ratio] 0.8 {ratio} Low 0.9-2.4 [facility] Comment on above: Order Comment: 'TROP ' Serial specimen #1, #2 or #3: 1 Result Comment: CELESTE Sifuentes PATIENT Re transmit patient results per facility Performed By: #### L 500.4050, L501.4020, L100.0100 #### [facility] [address] [place], [place], [address] Result Comment: Re t ransmit patient results per facility CA,Total 9.0 mg/dL Normal 8.5-10.1 [facility] Comment on above: Order Comment: 'TROP ' Serial specimen #1, #2 or #3: 1 Result Comment: CELESTE Sifuentes PATIENT Re transmit patient results per facility Performed By: #### L 500.4050, L501.4020, L100.0100 #### [facility] [address] [place], [place], [address] Result Comment: Re t ransmit patient results per facility Globulin (S) [Mass/Vol] 3.8 g/dL Normal 2.2-4.2 [facility] Comment on above: Order Comment: 'TROP ' Serial specimen #1, #2 or #3: 1 Result Comment: CELESTE Sifuentes PATIENT Re transmit patient results per facility Performed By: #### L 500.4050, L501.4020, L100.0100 #### [facility] [address] [place], [place], [address] Result Comment: Re t ransmit patient results per facility Albumin [Mass/Vol] 3.2 g/dL Normal 3.2-5.0 [facility] Comment on above: Order Comment: 'TROP ' Serial specimen #1, #2 or #3: 1 Result Comment: CELESTE G PATIENT Re transmit patient results per facility Performed By: #### L 500.4050, L501.4020, L100.0100 #### [facility] [address] [place], [address] Result Comment: Re t ransmit patient results per facility EST GFR - AA 86 mL/min Normal >60 [facility] Comment on above: Order Comment: 'TROP ' Serial specimen #1, #2 or #3: 1 Result Comment: CELESTE Sifuentes PATIENT GFR Calc AMENDED REPORT 09/18/24955 EST GFR - AA previously reported as: 87 mL/min GFR Calc Performed By: #### L 500.4050, L501.4020, L100.0100 #### [facility] [address] [place], [address] Result Comment: Afri can Mauritian GFR Calc AMENDED REPORT 09/18/24955 EST GFR - AA previously reported as: 87 mL/min GFR Calc T PROT 7.0 g/dL Normal 6.4-8.2 [facility] Comment on above: Order Comment: 'TROP ' Serial specimen #1, #2 or #3: 1 Result Comment: CELESTE Sifuentes PATIENT Re transmit patient results per facility Performed By: #### L 500.4050, L501.4020, L100.0100 #### [facility] [address] [place], [address] Result Comment: Re t ransmit patient results per facility Creatinine [Mass/Vol] 0.81 mg/dL Normal 0.55-1.02 [facility] Comment on above: Order Comment: 'TROP ' Serial specimen #1, #2 or #3: 1 Result Comment: CELESTE Sifuentes PATIENT The validity of the calculated GFR GFRAA in patients over 70 years has not been determined. Clinical correlation is essential. Re transmit patient results per facility AMENDED REPORT 09/18/24955 CREAT,SERUM previously reported as: 0.81 mg/dL The validity of the calculated GFR GFRAA in patients over 70 years has not been determined. Clinical correlation is essential. Performed By: #### L 500.4050, L501.4020, L100.0100 #### [facility] [address] [place], [place], [address] Result Comment: The validity of the calculated GFR GFRAA in patients over 70 years has not been determined. Clinical correlation is essential. Re transmit patient results per facility AMENDED REPORT 09/18/2456 CREAT,SERUM previously reported as: 0.81 mg/dL The validity of the calculated GFR GFRAA in patients over 70 years has not been determined. Clinical correlation is essential. GFR/1.73 sq M.predicted among non-blacks MDRD (S/P/Bld) [Vol rate/Area] 71 mL/min/{1.73_m2} Normal >60 [facility] Comment on above: Order Comment: 'TROP ' Serial specimen #1, #2 or #3: 1 Result Comment: CELESTE Sifuentes PATIENT Non- GFR Calc AMENDED REPORT 09/18/24955 EST GFR previously reported as: 72 mL/min Non- GFR Calc Performed By: #### L 500.4050, L501.4020, L100.0100 #### [facility] [address] [place], [place], [id number] Result Comment: Non- GFR Calc AMENDED REPORT 09/18/2456 EST GFR previously reported as: 72 mL/min Non- GFR Calc BUN/CRE 32.1 RATIO High 10-20 [facility] Comment on above: Order Comment: 'TROP ' Serial specimen #1, #2 or #3: 1 Result Comment: CELESTE Sifuentes PATIENT Performed By: #### L 500.4050, L501.4020, L100.0100 #### [facility] [address] [place], [place], [address] Urea nitrogen [Mass/Vol] 26 mg/dL High 7-18 [facility] Comment on above: Order Comment: 'TROP ' Serial specimen #1, #2 or #3: 1 Result Comment: CELESTE Sifuentes PATIENT Re transmit patient results per facility Performed By: #### L 500.4050, L501.4020, L100.0100 #### [facility] [address] [place] [place], [address] Result Comment: Re t ransmit patient results per facility Glucose [Mass/Vol] 90 mg/dL Normal 74-106 [facility] Comment on above: Order Comment: 'TROP ' Serial specimen #1, #2 or #3: 1 Result Comment: CATHYANDERSON Sifuentes PATIENT Re transmit patient results per facility Performed By: #### L 500.4050, L501.4020, L100.0100 #### [facility] [address] [place], [address] Result Comment: Re t ransmit patient results per facility Spine Lumbar (Routine)on Spine Lumbar (Routine) [facility] [address] [place], [place] [address] Spine Lumbar (Routine) MR#: [id number] Acct: [id number] Name: DOMONIQUE MARI Rep #: [id number] : 1940 F 83 From: Shawn jamison DO PCP: Dr. Zion Chahal MD Status: REG CLI Study: Spine Lumbar (Routine) Date of Exam: 07/03/24 Exam# [id number] Ordering Dr: Thomas Epstein MD [id number] EXAM: MR LUMBAR SPINE WITHOUT INTRAVENOUS CONTRAST CLINICAL INDICATION: COMPRESSION FX,SPONDYLOSIS TECHNIQUE: Multiplanar and multisequence MR images of the lumbar spine without intravenous contrast. COMPARISON: 07/03/2020 MRI lumbar spine. FINDINGS: VERTEBRAE: Mild retropulsion of the posterior cortices of T11-L1. Multilevel facet arthrosis and endplate osteophytosis. On nondiagnostic localization images, there are additional midthoracic compression fractures and degenerative changes throughout the remainder the spine. There are chronic compression fractures inclusive of T11-L5 which are chronic given lack of marrow edema. No significant change in vertebral body height loss since prior MRI dated 07/03/2020. Normal lumbar lordosis. SPINAL CORD: No significant abnormality. Normal position and signal intensity of the conus medullaris. 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 SOFT TISSUES: No significant abnormality. DISCS/SPINAL CANAL/NEURAL FORAMINA: L1-L2: Mild spinal canal stenosis and moderate bilateral neural foraminal narrowing. L2-L3: Mild spinal canal stenosis and moderate bilateral neural foraminal narrowing. L3-L4: Mild spinal canal stenosis and mild bilateral neural foraminal narrowing. L4-L5: Mild spinal canal stenosis and [id number] bilateral neural foraminal narrowing. L5-S1: Moderate bilateral facet arthrosis and mild bilateral neural foraminal narrowing. Normal spinal canal and lateral recesses. MRI/Spine Lumbar (Routine) IMPRESSION: There are chronic compression fractures inclusive of T11-L5 which are chronic given lack of marrow edema. No significant change in vertebral body height loss since prior MRI dated 07/03/2020. Extensive degenerative change. Electronically Signed: Shawn Gottlieb DO at 23:02 EST , CC: Dr. Zion Chahal MD; Dr. Thomas Epstein MD Group Home Supervisor: Signed Normal [facility] Carotid Duplex Ultrasoundon 06-29-2024 Carotid Duplex Ultrasound [facility] [address] [place] [address]. [place] [address] Carotid Duplex Ultrasound 06/29/24 1048 MR#: [id number] Acct: [id number] Name: DOMONIQUE MARI Rep #: [id number] : 1940 83 From: Uche Zee MD Attending Dr: Sydney Delong NP-C Status: REG Sander ISIDRO Ordering Dr: Sydney Delong [facility] CHIEF [facility] LABORAT[facility] CHIEF-C Date: 06/29/24 Location: PSN Sex: F C Admitted: Reason For Study: Carotid bruit Rt. Velocities/BP Lt. Velocities/BP Prox CCA 33.3/9.7 cm/sec. Prox CCA 42.1/8.1 cm/sec. Mid CCA 41.9/9.7 cm/sec. Mid CCA 52.6/10.7 cm/sec. Dist CCA 39/8.8 cm/sec. Dist CCA 56.1/12.5 cm/sec. Prox ICA 130.2/42.6 cm/sec. Prox ICA 43/11.6 cm/sec. Mid ICA 148.5/40.7 cm/sec. Mid ICA 69.2/22.1 cm/sec. Dist ICA 137.5/22.5 cm/sec. Dist ICA 62.2/20.3 cm/sec. Rt. ICA/CCA = 3.54. Lt. ICA/CCA = 1.32. Prox ECA 62.6/3.1 cm/sec. Prox ECA 47.4/4.6 cm/sec. Rt. Vert. 45.6/13.3 cm/sec. Lt. Vert. 43.9/11.6 cm/sec. Right Extracranial There is homogeneous, irregular atherosclerotic plaque noted in the right common carotid artery. There is heterogeneous, irregular atherosclerotic plaque noted in the right internal carotid artery. The atherosclerotic plaque causes acoustic shadowing. There is heterogeneous, irregular atherosclerotic plaque noted in the right external carotid artery. Antegrade flow is noted in the right vertebral artery. Left Extracranial There is heterogeneous, irregular atherosclerotic plaque noted in the left common carotid artery. There is heterogeneous, irregular atherosclerotic plaque noted in the left internal carotid artery. There is heterogeneous, irregular atherosclerotic plaque noted in the left external carotid artery. Antegrade flow is noted in the left vertebral artery. Procedure Carotid Duplex 53249. This is a Carotid Duplex examination using B-mode, color flow and specral Doppler. Exam performed in department. VL/Carotid Duplex Ultrasound Interpretation Summary Moderate (50-69%) stenosis right extracranial internal carotid. Mild (<50%) stenosis left extracranial internal carotid. Patent and antegrade vertebrals bilaterally. Ordering Physician: Sydney Delong Referring Physician: MD Zion Lorenz Performed By: Amira Tuttle RVT 06/29/241657 Date Uche Zee MD CC: CEM Delong; Dr. Zion Chahal MD Date Dictated: 06/29/241047 Date Transcribed: 06/29/241657 Group Home Supervisor: Signed Normal [facility] CBC W/Diff, Automatedon 10-2 Absolute Lymph 0.66 X10 3/uL Low 0.83-4.51 [facility] Comment on above: Performed By: #### L 501.5425, L500.2500, L100.0100 #### [facility] [address] [place], [address] Absolute Neut 2.5 X10 3/uL Normal 2.0-7.7 [facility] Comment on above: Performed By: #### L 501.5425, L500.2500, L100.0100 #### [facility] [address] [place], [address] Basophils/100 WBC (Bld) 0.3 % Normal 0-1 [facility] Comment on above: Performed By: #### L 501.5425, L500.2500, L100.0100 #### [facility] [address] [place], [address] Eosinophils/100 WBC (Bld) 4.9 % Normal 0-5 [facility] Comment on above: Performed By: #### L 501.5425, L500.2500, L100.0100 #### [facility] [address] [place], [address] Erythrocyte distribution width (RBC) [Ratio] 14.9 % High 11.6-14.6 [facility] Comment on above: Performed By: #### L 501.5425, L500.2500, L100.0100 #### [facility] [address] [place], [address] Hematocrit (Bld) [Volume fraction] 27.9 % Low 37-47 [facility] Comment on above: Performed By: #### L 501.5425, L500.2500, L100.0100 #### [facility] [address] [place], [address] Hemoglobin (Bld) [Mass/Vol] 9.0 g/dL Low 12.0-15.0 [facility] Comment on above: Performed By: #### L 501.5425, L500.2500, L100.0100 #### [facility] [address] [place], [address] IG% 0.300 Normal 0.0-0.9 [facility] Comment on above: Result Comment: IG% - Immature Granulocytes (promyelocytes, myelocytes and metamyelocytes) > 1% indicates that a LEFT SHIFT is Present. Performed By: #### L 501.5425, L500.2500, L100.0100 #### [facility] [address] [place], [address] Lymphocytes/100 WBC (Bld) 17.9 % Low 19-41 [facility] Comment on above: Performed By: #### L 501.5425, L500.2500, L100.0100 #### [facility] [address] [place], [address] MCH (RBC) [Entitic mass] 31.1 pg Normal 27.0-32.0 [facility] Comment on above: Performed By: #### L 501.5425, L500.2500, L100.0100 #### [facility] [address] [place], [address] MCHC (RBC) [Mass/Vol] 32.3 g/dL Normal 32-36 [facility] Comment on above: Performed By: #### L 501.5425, L500.2500, L100.0100 #### [facility] [address] [place], [address] MCV (RBC) [Entitic vol] 96.5 fL Normal 81-99 [facility] Comment on above: Performed By: #### L 501.5425, L500.2500, L100.0100 #### [facility] [address] [place], [address] Monocytes/100 WBC (Bld) 9.2 % Normal 0-10 [facility] Comment on above: Performed By: #### L 501.5425, L500.2500, L100.0100 #### [facility] [address] [place], [address] Neutrophils/100 WBC (Bld) 67.4 % Normal 47-70 [facility] Comment on above: Performed By: #### L 501.5425, L500.2500, L100.0100 #### [facility] [address] [place], [address] Nucleated RBC (Bld) [#/Vol] 0 10*3/uL Normal 0-5 [facility] Comment on above: Performed By: #### L 501.5425, L500.2500, L100.0100 #### [facility] [address] [place], [address] Platelet mean volume (Bld) [Entitic vol] 10.1 fL Normal 6.2-12.0 [facility] Comment on above: Performed By: #### L 501.5425, L500.2500, L100.0100 #### [facility] [address] [place], [address] Platelets (Bld) [#/Vol] 284 10*3/uL Normal 150-450 [facility] Comment on above: Performed By: #### L 501.5425, L500.2500, L100.0100 #### [facility] [address] [place], [address] RBC (Bld) [#/Vol] 2.89 10*6/uL Low 4.2-5.4 [facility] Comment on above: Performed By: #### L 501.5425, L500.2500, L100.0100 #### [facility] [address] [place], [address] RDW SD 52.9 fl High 35.1-43.9 [facility] Comment on above: Performed By: #### L 501.5425, L500.2500, L100.0100 #### [facility] [address] [place], [address] WBC (Bld) [#/Vol] 3.7 10*3/uL Low 4.4-11.0 [facility] Comment on above: Performed By: #### L 501.5425, L500.2500, L100.0100 #### [facility] [address] [place], [address] Cardiology Visit Reporton Cardiology Visit Report [facility] [address] [place] [address] OFFICE VISIT Date of Service: 06/20/24 MR#: [id number] Acct: [id number] Name: DOMONIQUE MARI Rep #: [id number] : 1940 Provider: CEM sanchez Age/Sex: 83/F Location: [facility] Status: Signed [facility] History of Present Illness Details: DOMONIQUE MARI is a 83 F who presents to the office today for a cardiovascular follow-up visit. She is a lady with a history of hypertension, aortic valve stenosis, premature ventricular complexes, and cardiomyopathy which appears to have resolved. Patient presented to [facility] in [place] in October of this year with complaints of right upper quadrant pain radiating to her back, and new onset atrial fibrillation. She underwent a cardiac catheterization which demonstrated an ejection fraction of 55 to 60%, left anterior descending coronary artery moderately calcific diffuse 40 to 50% and tandem focal 60 to 80% narrowing. Large D1 chronically occluded with long subtotal proximal and mid vessel segments with SIMON II flow, left circumflex coronary artery large first and small OM 2, OM 3, widely patent, right coronary artery large dominant; diffuse 40 to 60% and tandem 60 to 80% narrowing treated with overlapping 4.0 x 38, 4.0 x 8 and a 4.0 x 30 mm Maykel LEOBARDO with 0% IVUS and angiographic residual narrowing and SIMON III flow distally. Ostial PDA eccentric 60 to 70% narrowing angiographically and no significant narrowing on IVUS. The plan was to have a staged procedure of the LAD???D1 in 3 to 4 weeks. Patient decided to return home to have this done. Patient underwent a successful LEOBARDO to the pLAD on 01/21/2023. Patient was in cardiac rehab on 04/23/2023 when she was noted to have a 10 beat run of nonsustained ventricular tachycardia. She was asymptomatic with this. She was sent to the emergency room and admitted for observation. Her echocardiogram on 04/23/2023 demonstrated normal left ventricular systolic function, an ejection fraction of 65%. An outpatient stress test was recommended. Patient presented to the emergency room 02/11/2024 with complaints of palpitations. She described this as a racing sensation into her throat. Her EKG demonstrated atrial fibrillation RVR with a ventricular rate of 146. She was admitted for further evaluation. During her hospitalization, she was started on Cardizem, and converted to sinus rhythm. She was discharged home. From a cardiac standpoint, the patient is doing well. She denies any palpitations, chest pain, pressure or heaviness. She does acknowledge SOB with walking longer distances. This is nothing new or worsening. She denies Orthopnea, and PND. She does not have bleeding issues; no blood in urine, stool or nosebleeds. She does acknowledge a decrease in energy level. She denies myalgias, or claudication. She does not have edema, or sudden weight gain. She denies dizziness, lightheadedness, syncopal or near syncopal episodes, and headaches. Intake Vital Signs 02/18/24 09:50 06/05/24 10:20 06/20/24 09:41 Height 5 ft 2 in 5 ft 2 in 5 ft 2 in Weight: 129 lb BMI 23.6 BP 104/54 L Blood Pressure Location Lt brachial Position Sitting Respiration 18 Pulse 61 Pulse Source Monitor Pulse Oximetry (%) 98 Intake Visit Reasons: 5 M FU Personnel Monitor Required: No Is patient in pain?: No Allergies imiquimod (From Aldara) Allergy (Verified 06/20/24 09:56) Unknown Penicillins (PCN) Allergy (Verified 06/20/24 09:56) Anaphylaxis amlodipine Adverse Reaction (Intermediate, Verified 06/20/24 09:56) swelling in feet and legs dapagliflozin (From Farxiga) Adverse Reaction (Intermediate, Verified 06/20/24 09:56) Lightheaded and faint ciprofloxacin (From Cipro) Adverse Reaction (Verified 06/20/24 09:56) Other furosemide Adverse Reaction (Verified 06/20/24 09:56) low saodium hydrochlorothiazide Adverse Reaction (Verified 06/20/24 09:56) hyponatremia magnesium Adverse Reaction (Verified 06/20/24 09:56) Nausea prednisone Adverse Reaction (Verified 06/20/24 09:56) Upset Stomach Medications ???Medication ???Instructions ???Recorded ???Confirmed ???Type levothyroxine 112 mcg tablet 112 mcg PO QODAY hypothroidism 02/17/20 06/20/24 History escitalopram oxalate 20 mg tablet 20 mg PO DAILY anxiety 07/29/21 06/20/24 History apixaban 2.5 mg tablet (Eliquis) See Rx Instructions .Route 11/01/23 06/20/24 Rx .COMPLEX blood thinner #180 tabs carvedilol 12.5 mg tablet 12.5 mg PO .COMPLEX heart rate 02/09/24 06/20/24 Rx #180 tabs carvedilol 25 mg tablet 25 mg PO .COMPLEX waiting on mail 02/09/24 06/20/24 Rx in RX #180 tabs aspirin 81 mg chewable tablet 1 tab PO DAILY heart health 02/12/24 06/20/24 History (Arlet Chewable Low Dose Aspirin) alendronate 70 mg tablet 70 mg PO TU bone healt (more content not included)... Normal [facility] Comprehensive Metabolic Prof skylar 06-20-2024 Albumin [Mass/Vol] 2.8 g/dL Low 3.2-5.0 [facility] Comment on above: Performed By: #### L 501.5425, L500.2500, L100.0100 #### [facility] [address] [place], [address] Albumin/Globulin [Mass ratio] 0.8 {ratio} Low 0.9-2.4 [facility] Comment on above: Performed By: #### L 501.5425, L500.2500, L100.0100 #### [facility] [address] [place], [address] ALK P 45 U/L Normal 45-117 [facility] Comment on above: Performed By: #### L 501.5425, L500.2500, L100.0100 #### [facility] [address] [place], [address] ALT [Catalytic activity/Vol] 38 U/L Normal 13-56 [facility] Comment on above: Performed By: #### L 501.5425, L500.2500, L100.0100 #### [facility] [address] [place], [address] AST [Catalytic activity/Vol] 36 U/L Normal 15-37 [facility] Comment on above: Performed By: #### L 501.5425, L500.2500, L100.0100 #### [facility] [address] [place], [address] Bilirubin [Mass/Vol] 0.40 mg/dL Normal 0.20-1.00 [facility] Comment on above: Result Comment: For patients on eltrombopag therapy, use of Dimension Bath TBIL is not recommended. Performed By: #### L 501.5425, L500.2500, L100.0100 #### [facility] [address] [place], [address] BUN/CRE 16.8 RATIO Normal 10-20 [facility] Comment on above: Performed By: #### L 501.5425, L500.2500, L100.0100 #### [facility] [address] [place], [address] CA,Total 8.5 mg/dL Normal 8.5-10.1 [facility] Comment on above: Performed By: #### L 501.5425, L500.2500, L100.0100 #### [facility] [address] [place], [address] Chloride [Moles/Vol] 103 mmol/L Normal 98-107 [facility] Comment on above: Performed By: #### L 501.5425, L500.2500, L100.0100 #### [facility] [address] [place], [address] CO2 [Moles/Vol] 29.0 mmol/L Normal 21.0-32.0 [facility] Comment on above: Performed By: #### L 501.5425, L500.2500, L100.0100 #### [facility] [address] [place], [address] Creatinine [Mass/Vol] 1.19 mg/dL High 0.55-1.02 [facility] Comment on above: Result Comment: The validity of the calculated GFR GFRAA in patients over 70 years has not been determined. Clinical correlation is essential. Performed By: #### L 501.5425, L500.2500, L100.0100 #### [facility] [address] [place], [address] EST GFR - AA 55 mL/min Low >60 [facility] Comment on above: Result Comment: Afri can Mauritian GFR Calc Performed By: #### L 501.5425, L500.2500, L100.0100 #### [facility] [address] [place], [address] GAP 4 Low 5-15 [facility] Comment on above: Performed By: #### L 501.5425, L500.2500, L100.0100 #### [facility] [address] [place], [address] GFR/1.73 sq M.predicted among non-blacks MDRD (S/P/Bld) [Vol rate/Area] 46 mL/min/{1.73_m2} Low >60 [facility] Comment on above: Result Comment: Non- GFR Calc Performed By: #### L 501.5425, L500.2500, L100.0100 #### [facility] [address] [place], [address] Globulin (S) [Mass/Vol] 3.5 g/dL Normal 2.2-4.2 [facility] Comment on above: Performed By: #### L 501.5425, L500.2500, L100.0100 #### [facility] [address] [place], [address] Glucose [Mass/Vol] 88 mg/dL Normal 74-106 [facility] Comment on above: Performed By: #### L 501.5425, L500.2500, L100.0100 #### [facility] [address] [place], [address] Potassium [Moles/Vol] 4.7 mmol/L Normal 3.5-5.1 [facility] Comment on above: Performed By: #### L 501.5425, L500.2500, L100.0100 #### [facility] [address] [place], [address] Sodium [Moles/Vol] 135 mmol/L Low 136-145 [facility] Comment on above: Performed By: #### L 501.5425, L500.2500, L100.0100 #### [facility] [address] [place], [address] T PROT 6.3 g/dL Low 6.4-8.2 [facility] Comment on above: Performed By: #### L 501.5425, L500.2500, L100.0100 #### [facility] [address] [place], [address] Urea nitrogen [Mass/Vol] 20 mg/dL High 7-18 [facility] Comment on above: Performed By: #### L 501.5425, L500.2500, L100.0100 #### [facility] [address] [place], [address] Free T3on 06-20-2024 Free T3 [Mass/Vol] 0.7 pg/mL Low 2.18-3.98 [facility] Comment on above: Performed By: #### L 501.5425, L500.2500, L100.0100 #### [facility] [address] [place], [address] T4 Free Directon 06-20-2024 T4 FREE DIRECT 1.67 ng/dL High 0.76-1.46 [facility] Comment on above: Performed By: #### L 501.5425, L500.2500, L100.0100 #### [facility] [address] [place], [address] Thyroid Stim Hormone (TSH)on 06-20-2024 TSH 2.790 uIU/mL Normal 0.358-3.740 [facility] Comment on above: Performed By: #### L 501.5425, L500.2500, L100.0100 #### [facility] [address] [place], [address] Vitamin D,25 Hydroxyon 06-20 Vitamin D 25-OH 20.1 ng/mL Normal [facility] Comment on above: Result Comment: Sisi min D 25(OH) Status Range Deficiency <20 ng/mL (50nmol/L) Insufficiency 20 - 30 ng/mL (50 - 75 nmol/L) Sufficiency 30 - 100 ng/mL (75 - 250 nmol/L) Toxicity >100 ng/mL (>250 nmol/L) Performed By: #### L 501.5425, L500.2500, L100.0100 #### [facility] [address] [place], [address] Basic Metabolic Profile (BMP )on 06-05-2024 BUN/CRE 11.1 RATIO Normal 10-20 [facility] Comment on above: Performed By: #### L 100.0100, L500.2500 #### [facility] [address] [place], [address] CA,Total 8.3 mg/dL Low 8.5-10.1 [facility] Comment on above: Performed By: #### L 100.0100, L500.2500 #### [facility] [address] [place], [address] Chloride [Moles/Vol] 97 mmol/L Low 98-107 [facility] Comment on above: Performed By: #### L 100.0100, L500.2500 #### [facility] [address] [place], [address] CO2 [Moles/Vol] 26.0 mmol/L Normal 21.0-32.0 [facility] Comment on above: Performed By: #### L 100.0100, L500.2500 #### [facility] [address] [place], [address] Creatinine [Mass/Vol] 0.90 mg/dL Normal 0.55-1.02 [facility] Comment on above: Result Comment: The validity of the calculated GFR GFRAA in patients over 70 years has not been determined. Clinical correlation is essential. Performed By: #### L 100.0100, L500.2500 #### [facility] [address] [place], [address] ECRCL 39.38 ml/min Normal [facility] Comment on above: Performed By: #### L 100.0100, L500.2500 #### [facility] [address] [place], [address] EST GFR - AA 77 mL/min Normal >60 [facility] Comment on above: Result Comment: Afri can Mauritian GFR Calc Performed By: #### L 100.0100, L500.2500 #### [facility] [address] [place], [address] GAP 7 Normal 5-15 [facility] Comment on above: Performed By: #### L 100.0100, L500.2500 #### [facility] [address] [place], [address] GFR/1.73 sq M.predicted among non-blacks MDRD (S/P/Bld) [Vol rate/Area] 63 mL/min/{1.73_m2} Normal >60 [facility] Comment on above: Result Comment: Non- GFR Calc Performed By: #### L 100.0100, L500.2500 #### [facility] [address] [place], [address] Glucose [Mass/Vol] 91 mg/dL Normal 74-106 [facility] Comment on above: Performed By: #### L 100.0100, L500.2500 #### [facility] [address] [place], [address] Potassium [Moles/Vol] 3.8 mmol/L Normal 3.5-5.1 [facility] Comment on above: Performed By: #### L 100.0100, L500.2500 #### [facility] [address] [place], [address] Sodium [Moles/Vol] 130 mmol/L Low 136-145 [facility] Comment on above: Performed By: #### L 100.0100, L500.2500 #### [facility] [address] [place], [address] Urea nitrogen [Mass/Vol] 10 mg/dL Normal 7-18 [facility] Comment on above: Performed By: #### L 100.0100, L500.2500 #### [facility] [address] [place], [address] CBC W/Diff, Automatedon 10-0 7-2023 Absolute Lymph 0.76 X10 3/uL Low 0.83-4.51 [facility] Comment on above: Performed By: #### L 100.0100, L500.2500 #### [facility] [address] [place], [address] Absolute Neut 4.8 X10 3/uL Normal 2.0-7.7 [facility] Comment on above: Performed By: #### L 100.0100, L500.2500 #### [facility] [address] [place], [address] Basophils/100 WBC (Bld) 0.2 % Normal 0-1 [facility] Comment on above: Performed By: #### L 100.0100, L500.2500 #### [facility] [address] [place], [address] Eosinophils/100 WBC (Bld) 2.2 % Normal 0-5 [facility] Comment on above: Performed By: #### L 100.0100, L500.2500 #### [facility] [address] [place], [address] Erythrocyte distribution width (RBC) [Ratio] 14.8 % High 11.6-14.6 [facility] Comment on above: Performed By: #### L 100.0100, L500.2500 #### [facility] [address] [place], [address] Hematocrit (Bld) [Volume fraction] 30.4 % Low 37-47 [facility] Comment on above: Performed By: #### L 100.0100, L500.2500 #### [facility] [address] [place], [address] Hemoglobin (Bld) [Mass/Vol] 9.6 g/dL Low 12.0-15.0 [facility] Comment on above: Performed By: #### L 100.0100, L500.2500 #### [facility] [address] [place], [address] IG% 0.600 Normal 0.0-0.9 [facility] Comment on above: Result Comment: IG% - Immature Granulocytes (promyelocytes, myelocytes and metamyelocytes) > 1% indicates that a LEFT SHIFT is Present. Performed By: #### L 100.0100, L500.2500 #### [facility] [address] [place], [address] Lymphocytes/100 WBC (Bld) 12.2 % Low 19-41 [facility] Comment on above: Performed By: #### L 100.0100, L500.2500 #### [facility] [address] [place], [address] MCH (RBC) [Entitic mass] 30.3 pg Normal 27.0-32.0 [facility] Comment on above: Performed By: #### L 100.0100, L500.2500 #### [facility] [address] [place], [address] MCHC (RBC) [Mass/Vol] 31.6 g/dL Low 32-36 [facility] Comment on above: Performed By: #### L 100.0100, L500.2500 #### [facility] [address] [place], [address] MCV (RBC) [Entitic vol] 95.9 fL Normal 81-99 [facility] Comment on above: Performed By: #### L 100.0100, L500.2500 #### [facility] [address] [place], [address] Monocytes/100 WBC (Bld) 8.3 % Normal 0-10 [facility] Comment on above: Performed By: #### L 100.0100, L500.2500 #### [facility] [address] [place], [address] Neutrophils/100 WBC (Bld) 76.5 % High 47-70 [facility] Comment on above: Performed By: #### L 100.0100, L500.2500 #### [facility] [address] [place], [address] Nucleated RBC (Bld) [#/Vol] 0 10*3/uL Normal 0-5 [facility] Comment on above: Performed By: #### L 100.0100, L500.2500 #### [facility] [address] [place], [address] Platelet mean volume (Bld) [Entitic vol] 11.2 fL Normal 6.2-12.0 [facility] Comment on above: Performed By: #### L 100.0100, L500.2500 #### [facility] [address] [place], [address] Platelets (Bld) [#/Vol] 155 10*3/uL Normal 150-450 [facility] Comment on above: Performed By: #### L 100.0100, L500.2500 #### [facility] [address] [place], [address] RBC (Bld) [#/Vol] 3.17 10*6/uL Low 4.2-5.4 [facility] Comment on above: Performed By: #### L 100.0100, L500.2500 #### [facility] [address] [place], [address] RDW SD 52.6 fl High 35.1-43.9 [facility] Comment on above: Performed By: #### L 100.0100, L500.2500 #### [facility] [address] [place], [address] WBC (Bld) [#/Vol] 6.2 10*3/uL Normal 4.4-11.0 [facility] Comment on above: Performed By: #### L 100.0100, L500.2500 #### [facility] [address] [place], [address] Chest PA and Lateralon 06-05 Chest PA and Lateral [facility] [address] [place] [address] Chest PA and Lateral MR#: [id number] Acct: [id number] Name: DOMONIQUE MARI Rep #: [id number] : 1940 F 83 From: Troy bundy MD PCP: Dr. Zion Chahal MD Status: [facility] Study: Chest PA and Lateral Date of Exam: 06/05/24 Exam# [id number] Ordering Dr: Demian Miranda DO [id number] STUDY: X-RAY CHEST REASON FOR EXAM: Female, 83 years old. Cough TECHNIQUE: PA and lateral views of the chest. COMPARISON: Comparison is made with prior study of the second 2023. FINDINGS: There are interstitial fibrotic changes of the lungs. There is no demonstrated pleural abnormality. Normal size heart. Normal mediastinum and linda. Normal visualized pulmonary arteries. There is atherosclerotic calcification of the aortic arch with tortuosity. There are diffuse degenerative changes of the visualized thoracic spine. Stable loss of height of a mid dorsal vertebrae. Normal visualized ribs, clavicles, and shoulders. There is no demonstrated abnormality of the visualized soft tissue structures of the upper abdomen. RAD/Chest PA and Lateral IMPRESSION: Hyperinflation. Stable coarse and increased interstitial markings in both lungs worse at the lung bases suggestive of scarring. Electronically Signed: Troy Limon MD at 12:17 EDT , CC: Dr. Demian Miranda DO; Dr. Zion Chahal MD Group Home Supervisor: Signed Normal [facility] Emergency Department Summary on 06-05-2024 Emergency Department Summary [facility] Medical Records Department [address] [place] [address] Emergency Department Summary 06/05/24 MR#: [id number] Acct: [id number] Name: DOMONIQUE MARI Rep #: [id number] : 1940 83 From: Demian Miranda DO PCP: Dr. Zion Chahal MD Status:REG ER Location: ED HPI History of Present Illness Chief Complaint: Cough Narrative Narrative: Chief complaint and HPI: Cough. 83-year-old female presents for evaluation of cough. Patient states that her cough is productive. Has been ongoing for 1 week. Has taken Robitussin with little relief. Denies any fever, chills, chest pain, shortness of breath, abdominal pain, nausea, vomiting, dysuria. Does endorse URI symptoms with congestion and runny nose. Previous tobacco abuse. No history of asthma or COPD. Patient has past medical history of atrial fibs on Eliquis, HTN. Review of systems: See HPI Medications: As listed on the chart Allergies: As listed on the chart PFSH: Per chart Vital signs: As listed on the chart. Reviewed. Physical exam: Gen: A O x3, NAD Head: Normocephalic, atraumatic Eyes: No sclera icterus, conjunctiva clear, PERRL, EOMI ENT: Moist mucous membranes, no facial tenderness with palpation of the sinuses Neck: Trachea midline, No JVD, Full ROM, No meningismus CV: RRR, no murmurs, no peripheral edema Resp: Lungs mildly diminished, + wheezing throughout GI: Abd soft, non-distended, non-tender, no r/r/g Musc: Full ROM, no deformity Skin: Warm, dry, no rash Neuro: Alert, oriented, grossly intact, sensation intact Psych: Cooperative, appropriate mood and affect 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Route 11/01/23 06/04/24 Rx .COMPLEX blood thinner #180 tabs carvedilol 12.5 mg tablet 12.5 mg PO .COMPLEX heart rate 02/09/24 06/04/24 Rx #180 tabs carvedilol 25 mg tablet 25 mg PO .COMPLEX waiting on mail 02/09/24 06/04/24 Rx in RX #180 tabs aspirin 81 mg chewable tablet 1 tab PO DAILY heart health 02/12/24 06/04/24 History (Arlet Chewable Low Dose Aspirin) alendronate 70 mg tablet 70 mg PO bone [facility] 03/03/24 06/04/24 History potassium chloride 10 mEq 20 meq (2 x 10 mEq) PO DAILY 03/06/24 06/04/24 Rx tablet,extended release supplement #0 tabs levothyroxine 100 mcg tablet 100 mcg PO QODAY thyroid 03/31/24 06/04/24 History atorvastatin 40 mg tablet 40 mg PO QHS 90 days #90 tabs 04/02/24 06/04/24 Rx amiodarone 200 mg tablet 200 mg PO DAILY heart #90 tabs 04/14/24 06/04/24 Rx sacubitril 24 mg-valsartan 26 mg 1 tab PO BID #180 tabs 04/14/24 06/04/24 Rx tablet (Entresto) Allergy/AdvReac Type Severity Reaction Status Date / Time imiquimod (From Aldara) Allergy Unknown Verified 06/05/24 10:22 Penicillins (PCN) Allergy Anaphylaxis Verified 06/05/24 10:22 amlodipine AdvReac Intermediate swelling Verified 06/05/24 10:22 in feet and legs dapagliflozin (From Farxiga) AdvReac Intermediate Lightheaded Verified 06/05/24 10:22 and faint ciprofloxacin (From Cipro) AdvReac Other Verified 06/05/24 10:22 furosemide AdvReac low saodium Verified 06/05/24 10:22 hydrochlorothiazide AdvReac hyponatremi Verified 06/05/24 10:22 a magnesium AdvReac Nausea Verified 06/05/24 10:22 prednisone AdvReac Upset Verified 06/05/24 10:22 Stomach Family History Mother Heart disease Father Heart disease Surgical History History of coronary artery stent placement (01/21/23) History of cataract surgery History of right hip replacement History of hysterectomy History of left heart catheterization (02/19/11) Social History household members: none Smoking Status: Former smoker how long ago did patient quit smokin years ago alcohol intake: current alcohol intake frequency: holidays/special occasions only substance use type: hensley (more content not included)... Normal [facility] M100.678on 06-05-2024 M100.678 Pending SARS-CoV-2 (COVID 19) Negative INFLUENZA A Negative INFLUENZA B Negative RSV PCR Negative Normal [facility] Comment on above: Performed By: #### L 501.1193, L500.2500, L100.0100 #### [facility] [place], [address] Culture, Blood (WB)on 2023 CUB Blood cultures x2, from two different sites No growth in 5 days. Normal [facility] Comment on above: Performed By: #### L 500.4050, L501.4020, L100.0100 #### [facility] [address] [place], [address] Basic Metabolic Profile (BMP )on 04-02-2024 BUN/CRE 19.5 RATIO Normal 10-20 [facility] Comment on above: Performed By: #### L 500.4050, L501.4020, L100.0100 #### [facility] [address] [place], [address] CA,Total 7.9 mg/dL Low 8.5-10.1 [facility] Comment on above: Performed By: #### L 500.4050, L501.4020, L100.0100 #### [facility] [address] [place], [address] Chloride [Moles/Vol] 102 mmol/L Normal 98-107 [facility] Comment on above: Performed By: #### L 500.4050, L501.4020, L100.0100 #### [facility] [address] [place], [address] CO2 [Moles/Vol] 25.0 mmol/L Normal 21.0-32.0 [facility] Comment on above: Performed By: #### L 500.4050, L501.4020, L100.0100 #### [facility] [address] [place], [address] Creatinine [Mass/Vol] 0.92 mg/dL Normal 0.55-1.02 [facility] Comment on above: Result Comment: The validity of the calculated GFR GFRAA in patients over 70 years has not been determined. Clinical correlation is essential. Performed By: #### L 500.4050, L501.4020, L100.0100 #### [facility] [address] [place], [address] ECRCL 35.36 ml/min Normal [facility] Comment on above: Performed By: #### L 500.4050, L501.4020, L100.0100 #### [facility] [address] [place], [address] EST GFR - AA 75 mL/min Normal >60 [facility] Comment on above: Result Comment: Afri can Mauritian GFR Calc Performed By: #### L 500.4050, L501.4020, L100.0100 #### [facility] [address] [place], [address] GAP 5 Normal 5-15 [facility] Comment on above: Performed By: #### L 500.4050, L501.4020, L100.0100 #### [facility] [address] [place], [address] GFR/1.73 sq M.predicted among non-blacks MDRD (S/P/Bld) [Vol rate/Area] 62 mL/min/{1.73_m2} Normal >60 [facility] Comment on above: Result Comment: Non- GFR Calc Performed By: #### L 500.4050, L501.4020, L100.0100 #### [facility] [address] [place], [address] Glucose [Mass/Vol] 125 mg/dL High 74-106 [facility] Comment on above: Result Comment: Fast ing Glucose result from 100 to 125 mg/dL suggests IMPAIRED HOMEOSTASIS per A.D.A. criteria. Performed By: #### L 500.4050, L501.4020, L100.0100 #### [facility] [address] [place], [address] Potassium [Moles/Vol] 4.3 mmol/L Normal 3.5-5.1 [facility] Comment on above: Performed By: #### L 500.4050, L501.4020, L100.0100 #### [facility] [address] [place], [address] Sodium [Moles/Vol] 132 mmol/L Low 136-145 [facility] Comment on above: Performed By: #### L 500.4050, L501.4020, L100.0100 #### [facility] [address] [place], [address] Urea nitrogen [Mass/Vol] 18 mg/dL Normal 7-18 [facility] Comment on above: Performed By: #### L 500.4050, L501.4020, L100.0100 #### [facility] [address] [place], [address] Discharge Instructionon 080 Discharge Instruction [facility] Medical Records Department [address] [place] [address] Instructions for Home/Discharge Instructions 04/02/24 1145 MR#: [id number] Acct: [id number] Name: DOMONIQUE MARI Rep #: [id number] : 1940 83 From: Rell Ortega DO PCP: Dr. Zion Chahal MD Status:ADM IN Discharge Instructions Diet Discharge Diet: No restrictions Activity Discharge Activity: No Restrictions Follow Up Care Test Results: Test results from this visit will be discussed in further detail at your follow-up appointment, if applicable. Discharge Plan Admission Admit Date/Time: 04/01/24 00:29 Primary Reason for Your Visit: COVID-19 infection Attending Provider: Rell Ortega Primary Care Provider: Zion Chahal Consulting Providers: Uche Lazo Instructions Additional Instructions / Restrictions: Please take dexamethasone 1 mg (2 tablets) for 3 more days to complete 5-day course of steroids total for your COVID infection. Please take the decreased dose of the atorvastatin going forward. Follow-up with your primary care doctor as needed. Discharge Orders/Prescriptions Prescriptions: New atorvastatin 40 mg Tablet 40 mg PO QHS 90 Days Qty: 90 3RF dexamethasone 0.5 mg tablet 1 mg PO DAILY 3 Days Qty: 6 0RF Continued escitalopram oxalate 20 mg tablet 20 mg PO DAILY levothyroxine 112 MCG tablet 112 mcg PO QODAY Rx Instructions: every other day aspirin [Arlet Chewable Aspirin] 81 mg tablet,chewable 1 tab PO DAILY alendronate 70 mg tablet 70 mg PO TU amiodarone 200 mg Tablet 200 mg PO DAILY 30 Days Qty: 60 0RF Rx Instructions: Take twice daily for 7 days then decrease to daily dosing levothyroxine 100 mcg tablet 100 mcg PO QODAY Eliquis 2.5 mg tablet See Rx Instructions .ROUTE .COMPLEX Qty: 180 3RF Dose Instruction: TAKE 1 TABLET TWICE DAILY Rx Instructions: TAKE 1 TABLET TWICE DAILY carvedilol 25 mg tablet 25 mg PO .COMPLEX Qty: 180 3RF Rx Instructions: 25 mg orally Take a 25 mg tablet with a 12.5 mg tablet TWICE DAILY to = 37.5 TWICE A DAY; must administer with a meal/food carvedilol 12.5 mg tablet 12.5 mg PO .COMPLEX Qty: 180 3RF Rx Instructions: 12.5 mg orally Take with a 25 mg to = 37.5 mg TWICE a day; dose increased in hospital.; must administer with a meal/food potassium chloride 10 mEq tablet extended release 20 meq PO DAILY Qty: 0 0RF Entresto 24-26 mg tablet 1 tab PO BID Qty: 180 3RF Discontinued atorvastatin 80 mg tablet See Rx Instructions .ROUTE .COMPLEX Qty: 90 3RF Dose Instruction: TAKE 1 TABLET AT BEDTIME Rx Instructions: TAKE 1 TABLET AT BEDTIME furosemide 40 mg tablet 40 mg PO QDAY PRN (Reason: edema) Qty: 90 0RF Referrals / Follow Up: Zion Chahal MD [Primary Care Provider] - Disposition Disposition (needs filled in before D/C Order can be placed): Home, Self Care 04/02/24 1153 Rell Ortega DO CC: Dr. Uche Lazo DO; Dr. Zion Chahal MD Signed Normal [facility] Urine Cultureon 04-02-2024 URC Mixed Gram Positive Organisms [place] Count >100,000 MIXC Mixed contaminants. Submit a new specimen if indicated. Normal [facility] Comment on above: Performed By: #### L 501.5425, L500.2500, L100.0100 #### [facility] [address] [place], [address] CBC W/Diff, Automatedon 08-0 3-2023 Absolute Lymph 0.34 X10 3/uL Low 0.83-4.51 [facility] Comment on above: Performed By: #### L 501.5425, L500.2500, L100.0100 #### [facility] [address] [place], [address] Absolute Neut 4.0 X10 3/uL Normal 2.0-7.7 [facility] Comment on above: Performed By: #### L 501.5425, L500.2500, L100.0100 #### [facility] [address] [place], [address] Basophils/100 WBC (Bld) 0.0 % Normal 0-1 [facility] Comment on above: Performed By: #### L 501.5425, L500.2500, L100.0100 #### [facility] [address] [place], [address] Eosinophils/100 WBC (Bld) 0.0 % Normal 0-5 [facility] Comment on above: Performed By: #### L 501.5425, L500.2500, L100.0100 #### [facility] [address] [place], [address] Erythrocyte distribution width (RBC) [Ratio] 13.8 % Normal 11.6-14.6 [facility] Comment on above: Performed By: #### L 501.5425, L500.2500, L100.0100 #### [facility] [address] [place], [address] Hematocrit (Bld) [Volume fraction] 29.7 % Low 37-47 [facility] Comment on above: Performed By: #### L 501.5425, L500.2500, L100.0100 #### [facility] [address] [place], [address] Hemoglobin (Bld) [Mass/Vol] 9.8 g/dL Low 12.0-15.0 [facility] Comment on above: Performed By: #### L 501.5425, L500.2500, L100.0100 #### [facility] [address] [place], [address] IG% 0.900 Normal 0.0-0.9 [facility] Comment on above: Result Comment: IG% - Immature Granulocytes (promyelocytes, myelocytes and metamyelocytes) > 1% indicates that a LEFT SHIFT is Present. Performed By: #### L 501.5425, L500.2500, L100.0100 #### [facility] [address] [place], [address] Lymphocytes/100 WBC (Bld) 7.5 % Low 19-41 [facility] Comment on above: Performed By: #### L 501.5425, L500.2500, L100.0100 #### [facility] [address] [place], [address] MCH (RBC) [Entitic mass] 31.2 pg Normal 27.0-32.0 [facility] Comment on above: Performed By: #### L 501.5425, L500.2500, L100.0100 #### [facility] [address] [place], [address] MCHC (RBC) [Mass/Vol] 33.0 g/dL Normal 32-36 [facility] Comment on above: Performed By: #### L 501.5425, L500.2500, L100.0100 #### [facility] [address] [place], [address] MCV (RBC) [Entitic vol] 94.6 fL Normal 81-99 [facility] Comment on above: Performed By: #### L 501.5425, L500.2500, L100.0100 #### [facility] [address] [place], [address] Monocytes/100 WBC (Bld) 2.4 % Normal 0-10 [facility] Comment on above: Performed By: #### L 501.5425, L500.2500, L100.0100 #### [facility] [address] [place], [address] Neutrophils/100 WBC (Bld) 89.2 % High 47-70 [facility] Comment on above: Performed By: #### L 501.5425, L500.2500, L100.0100 #### [facility] [address] [place], [address] Nucleated RBC (Bld) [#/Vol] 0 10*3/uL Normal 0-5 [facility] Comment on above: Performed By: #### L 501.5425, L500.2500, L100.0100 #### [facility] [address] [place], [address] Platelet mean volume (Bld) [Entitic vol] 11.1 fL Normal 6.2-12.0 [facility] Comment on above: Performed By: #### L 501.5425, L500.2500, L100.0100 #### [facility] [address] [place], [address] Platelets (Bld) [#/Vol] 141 10*3/uL Low 150-450 [facility] Comment on above: Performed By: #### L 501.5425, L500.2500, L100.0100 #### [facility] [address] [place], [address] RBC (Bld) [#/Vol] 3.14 10*6/uL Low 4.2-5.4 [facility] Comment on above: Performed By: #### L 501.5425, L500.2500, L100.0100 #### [facility] [address] [place], [address] RDW SD 47.2 fl High 35.1-43.9 [facility] Comment on above: Performed By: #### L 501.5425, L500.2500, L100.0100 #### [facility] [address] [place], [address] WBC (Bld) [#/Vol] 4.5 10*3/uL Normal 4.4-11.0 [facility] Comment on above: Performed By: #### L 501.5425, L500.2500, L100.0100 #### [facility] [address] [place], [address] CORTISOL SERUMon 04-01-2024 CORTISOL 9.00 ug/dL Normal 3.44-22.45 [facility] Comment on above: Result Comment: Adul t (AM) 5.27 - 22.45 ug/dL Adult (PM) 3.44 - 16.76 ug/dL Please note revised CORTISOL reference range effective 2019. Performed By: #### L 501.5425, L500.2500, L100.0100 #### [facility] [address] [place], [address] Comprehensive Metabolic Prof ilon 04-01-2024 Albumin [Mass/Vol] 2.6 g/dL Low 3.2-5.0 [facility] Comment on above: Performed By: #### L 501.5425, L500.2500, L100.0100 #### [facility] [address] [place], [address] Albumin/Globulin [Mass ratio] 0.7 {ratio} Low 0.9-2.4 [facility] Comment on above: Performed By: #### L 501.5425, L500.2500, L100.0100 #### [facility] [address] [place], [address] ALK P 45 U/L Normal 45-117 [facility] Comment on above: Performed By: #### L 501.5425, L500.2500, L100.0100 #### [facility] [address] [place], [address] ALT [Catalytic activity/Vol] 90 U/L High 13-56 [facility] Comment on above: Performed By: #### L 501.5425, L500.2500, L100.0100 #### [facility] [address] [place], [address] AST [Catalytic activity/Vol] 79 U/L High 15-37 [facility] Comment on above: Performed By: #### L 501.5425, L500.2500, L100.0100 #### [facility] [address] [place], [address] Bilirubin [Mass/Vol] 0.40 mg/dL Normal 0.20-1.00 [facility] Comment on above: Result Comment: For patients on eltrombopag therapy, use of Dimension Bath TBIL is not recommended. Performed By: #### L 501.5425, L500.2500, L100.0100 #### [facility] [address] [place], [address] BUN/CRE 14.7 RATIO Normal 10-20 [facility] Comment on above: Performed By: #### L 501.5425, L500.2500, L100.0100 #### [facility] [address] [place], [address] CA,Total 7.6 mg/dL Low 8.5-10.1 [facility] Comment on above: Performed By: #### L 501.5425, L500.2500, L100.0100 #### [facility] [address] [place], [address] Chloride [Moles/Vol] 100 mmol/L Normal 98-107 [facility] Comment on above: Performed By: #### L 501.5425, L500.2500, L100.0100 #### [facility] [address] [place], [address] CO2 [Moles/Vol] 24.0 mmol/L Normal 21.0-32.0 [facility] Comment on above: Performed By: #### L 501.5425, L500.2500, L100.0100 #### [facility] [address] [place], [address] Creatinine [Mass/Vol] 0.89 mg/dL Normal 0.55-1.02 [facility] Comment on above: Result Comment: The validity of the calculated GFR GFRAA in patients over 70 years has not been determined. Clinical correlation is essential. Performed By: #### L 501.5425, L500.2500, L100.0100 #### [facility] [address] [place], [address] ECRCL 36.55 ml/min Normal [facility] Comment on above: Performed By: #### L 501.5425, L500.2500, L100.0100 #### [facility] [address] [place], [address] EST GFR - AA 78 mL/min Normal >60 [facility] Comment on above: Result Comment: Afri can Mauritian GFR Calc Performed By: #### L 501.5425, L500.2500, L100.0100 #### [facility] [address] [place], [address] GAP 5 Normal 5-15 [facility] Comment on above: Performed By: #### L 501.5425, L500.2500, L100.0100 #### [facility] [address] [place], [address] GFR/1.73 sq M.predicted among non-blacks MDRD (S/P/Bld) [Vol rate/Area] 64 mL/min/{1.73_m2} Normal >60 [facility] Comment on above: Result Comment: Non- GFR Calc Performed By: #### L 501.5425, L500.2500, L100.0100 #### [facility] [address] [place], [address] Globulin (S) [Mass/Vol] 3.7 g/dL Normal 2.2-4.2 [facility] Comment on above: Performed By: #### L 501.5425, L500.2500, L100.0100 #### [facility] [address] [place], [address] Glucose [Mass/Vol] 137 mg/dL High 74-106 [facility] Comment on above: Result Comment: Fast ing Glucose result greater than or equal to 126 mg/dL suggests DIABETES MELLITUS per A.D.A. criteria. Performed By: #### L 501.5425, L500.2500, L100.0100 #### [facility] [address] [place], [address] Potassium [Moles/Vol] 4.1 mmol/L Normal 3.5-5.1 [facility] Comment on above: Performed By: #### L 501.5425, L500.2500, L100.0100 #### [facility] [address] [place], [address] Sodium [Moles/Vol] 129 mmol/L Low 136-145 [facility] Comment on above: Performed By: #### L 501.5425, L500.2500, L100.0100 #### [facility] [address] [place], [address] T PROT 6.3 g/dL Low 6.4-8.2 [facility] Comment on above: Performed By: #### L 501.5425, L500.2500, L100.0100 #### [facility] [address] [place], [address] Urea nitrogen [Mass/Vol] 13 mg/dL Normal 7-18 [facility] Comment on above: Performed By: #### L 501.5425, L500.2500, L100.0100 #### [facility] [address] [place], [address] Creatinine, Urine (random)on 04-01-2024 UR CREAT 173.00 mg/dL Normal NO RANGE EST. [facility] Comment on above: Performed By: #### L 500.4050, L501.4020, L100.0100 #### [facility] [address] [place], [address] Emergency Department Summary on 04-01-2024 Emergency Department Summary [facility] Medical Records Department [address] [place] [address] Emergency Department Summary 04/01/24 MR#: [id number] Acct: [id number] Name: DOMONIQUE MARI Rep #: [id number] : 1940 83 From: Marcos Cole DO PCP: Dr. Zion Chahal MD Status:[facility] Location: ED ADDENDUM by Dr. Marcos Cole DO on 04/01/24 at 0036 Patient has anaphylaxis to penicillins therefore she was not given ceftriaxone or azithromycin changed this to Aztreonam 04/01/24 0036 Cosigner Signature (if applicable): cc: Dr. Zion Chahal MD * Signed HPI History of Present Illness Chief Complaint: General Illness Narrative Narrative: Patient is a 83-year-old female with past medical history of DVT on Eliquis, paroxysmal atrial fibrillation, anemia, SVT, hypertension, depression who presented to the emergency department with a chief complaint of fever, and generalized fatigue and not feeling well for the last several days. She notes that family bedside was ill earlier in the week on Wednesday however quickly got over this. She states that she feels like she is getting worse instead of better therefore prompting her to come here for further evaluation management. 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 PAF (paroxysmal atrial fibrillation) Nonrheumatic aortic (valve) stenosis Compression fracture Essential (primary) hypertension Premature ventricular beats Myocarditis Solar elastosis Arthritis Depression Right leg DVT Nonsustained paroxysmal ventricular tachycardia Non-ischemic cardiomyopathy Home Medications ???Medication ???Instructions ???Recorded ???Last Taken ???Type levothyroxine 112 mcg tablet 112 mcg PO QODAY hypothroidism 02/17/20 03/31/24 History escitalopram oxalate 20 mg tablet 20 mg PO DAILY anxiety 07/29/21 04/23/23 History atorvastatin 80 mg tablet See Rx Instructions .Route 10/14/23 Unknown Rx .COMPLEX cholesterol #90 tabs apixaban 2.5 mg tablet (Eliquis) See Rx Instructions .Route 11/01/23 Unknown Rx .COMPLEX blood thinner #180 tabs carvedilol 12.5 mg tablet 12.5 mg PO .COMPLEX heart rate 02/09/24 Unknown Rx #180 tabs carvedilol 25 mg tablet 25 mg PO .COMPLEX waiting on mail 02/09/24 Unknown Rx in RX #180 tabs aspirin 81 mg chewable tablet 1 tab PO DAILY heart health 02/12/24 Unknown History (Arlet Chewable Low Dose Aspirin) alendronate 70 mg tablet 70 mg PO [facility] 03/03/24 Unknown History amiodarone 200 mg tablet 200 mg PO DAILY 30 days #60 tabs 03/03/24 Unknown Rx potassium chloride 10 mEq 20 meq (2 x 10 mEq) PO DAILY #0 03/06/24 Unknown Rx tablet,extended release tabs sacubitril 24 mg-valsartan 26 mg 1 tab PO BID #180 tabs 03/13/24 Unknown Rx tablet (Entresto) furosemide 40 mg tablet 40 mg PO QDAY PRN edema #90 tabs 03/21/24 Unknown Rx levothyroxine 100 mcg tablet 100 mcg PO QODAY 03/31/24 03/30/24 History Allergy/AdvReac Type Severity Reaction Status Date / Time imiquimod (From Aldara) Allergy Unknown Verified 03/31/24 21:02 Penicillins (PCN) Allergy Anaphylaxis Verified 03/31/24 21:02 amlodipine AdvReac Intermediate swelling Verified 03/31/24 21:02 in feet and legs dapagliflozin (From Farxiga) AdvReac Intermediate Lightheaded Verified 03/31/24 21:02 and faint ciprofloxacin (From Cipro) AdvReac Other Verified 03/31/24 21:02 furosemide AdvReac low saodium Verified 03/31/24 21:02 hydrochlorothiazide AdvReac hyponatremi Verified 03/31/24 21:02 a magnesium AdvReac Nausea Verified 03/31/24 21:02 prednisone AdvReac Upset Verified 03/31/24 21:02 Stomach Family History Mother Heart disease Father Heart disease Surgical History History of coronary artery stent placement (01/21/23) History of cataract surgery History of right hip replacement History of hysterectomy History of left heart catheterization (02/19/11) Social History household members: none Smoking Status: Former smoker how long ago did patient quit smokin years ago alcohol intake: current alcohol intake frequency: holidays/special occasions only substance use type: does not use caffeine: Yes Type: coffee Number of servings: 1 ROS ROS ED ROS Narrative Constitutional: Complains of fever as noted above is not headache denies any lightheadedness or dizziness Eyes: Denies change in vision double vision blurry vision Cardiovascular: Denies chest pain or palpitations (more content not included)... Normal [facility] H AND P Exam - Hospitaliston 04-01-2024 H&P Exam - Hospitalist [facility] Medical Records Department [address] [place] [address] H P Exam - Hospitalist 04/01/24 0044 MR#: [id number] Acct: [id number] Name: DOMONIQUE MARI Rep #: [id number] : 1940 83 From: Uche Lazo DO PCP: Dr. Zion Chahal MD Status:ADM IN Location: [facility]3 [id number] HPI - General General Date of Service: 04/01/24 Chief Complaint: Shortness of breath HPI Narrative DOMONIQUE MARI, is a 83 F who presents with shortness of breath. Is an 83-year-old female with a history of pulmonary fibrosis new diagnosis of paroxysmal atrial fibrillation presents with a 3-day history of mild shortness of breath. Also start developing fever at the end. She presented to the emergency room and her oxygenation was 89%. She was put on 2 L nasal cannula and her pulse ox increased to 98%. She had a chest x-ray that showed chronic fibrotic changes but she did receive aztreonam x 1. She was also positive for COVID-19 and did receive 6 mg of dexamethasone. She is being hospitalized and admitted for further treatment of her respiratory failure and COVID-19. 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 PAF (paroxysmal atrial fibrillation) Nonrheumatic aortic (valve) stenosis Compression fracture Essential (primary) hypertension Premature ventricular beats Myocarditis Solar elastosis Arthritis Depression Right leg DVT Nonsustained paroxysmal ventricular tachycardia Non-ischemic cardiomyopathy Home Medications ???Medication ???Instructions ???Recorded ???Last Taken ???Type levothyroxine 112 mcg tablet 112 mcg PO QODAY hypothroidism 02/17/20 03/31/24 History escitalopram oxalate 20 mg tablet 20 mg PO DAILY anxiety 07/29/21 04/23/23 History atorvastatin 80 mg tablet See Rx Instructions .Route 10/14/23 Unknown Rx .COMPLEX cholesterol #90 tabs apixaban 2.5 mg tablet (Eliquis) See Rx Instructions .Route 11/01/23 Unknown Rx .COMPLEX blood thinner #180 tabs carvedilol 12.5 mg tablet 12.5 mg PO .COMPLEX heart rate 02/09/24 Unknown Rx #180 tabs carvedilol 25 mg tablet 25 mg PO .COMPLEX waiting on mail 02/09/24 Unknown Rx in RX #180 tabs aspirin 81 mg chewable tablet 1 tab PO DAILY [facility] 02/12/24 Unknown History (Arlet Chewable Low Dose Aspirin) alendronate 70 mg tablet 70 mg PO bone [facility] 03/03/24 Unknown History amiodarone 200 mg tablet 200 mg PO DAILY 30 days #60 tabs 03/03/24 Unknown Rx potassium chloride 10 mEq 20 meq (2 x 10 mEq) PO DAILY #0 03/06/24 Unknown Rx tablet,extended release tabs sacubitril 24 mg-valsartan 26 mg 1 tab PO BID #180 tabs 03/13/24 Unknown Rx tablet (Entresto) furosemide 40 mg tablet 40 mg PO QDAY PRN edema #90 tabs 03/21/24 Unknown Rx levothyroxine 100 mcg tablet 100 mcg PO QODAY 03/31/24 03/30/24 History Allergy/AdvReac Type Severity Reaction Status Date / Time imiquimod (From Aldara) Allergy Unknown Verified 03/31/24 21:02 Penicillins (PCN) Allergy Anaphylaxis Verified 03/31/24 21:02 amlodipine AdvReac Intermediate swelling Verified 03/31/24 21:02 in feet and legs dapagliflozin (From Farxiga) AdvReac Intermediate Lightheaded Verified 03/31/24 21:02 and faint ciprofloxacin (From Cipro) AdvReac Other Verified 03/31/24 21:02 furosemide AdvReac low saodium Verified 03/31/24 21:02 hydrochlorothiazide AdvReac hyponatremi Verified 03/31/24 21:02 a magnesium AdvReac Nausea Verified 03/31/24 21:02 prednisone AdvReac Upset Verified 03/31/24 21:02 Stomach Family History Mother Heart disease Father Heart disease Surgical History History of coronary artery stent placement (01/21/23) History of cataract surgery History of right hip replacement History of hysterectomy History of left heart catheterization (02/19/11) Social History household members: none Smoking Status: Former smoker how long ago did patient quit smokin years ago alcohol intake: current alcohol intake frequency: holidays/special occasions only substance use type: does not use caffeine: Yes Type: coffee Number of servings: 1 ROS ROS Narrative Coughing. Minimally productive cough. No chest pain no abdominal pain. All review of systems were negative except as mentioned above in the history of present illness and the other review of systems. Vital Signs Vital Signs Vital Signs: 03/31/24 21:03 03/31/24 21:11 03/31/24 22:04 Temperature 38.3 C H 36.9 C Temperature Source Oral (more content not included)... Normal [facility] Osmolality, Serumon 04-01-20 24 OSMOLALITY,SER 269 mOsm/KG Low 280-301 [facility] Comment on above: Performed By: #### L 501.5425, L500.2500, L100.0100 #### [facility] [address] [place], [address] Thyroid Stim Hormone (TSH)on 04-01-2024 TSH 0.65 uIU/mL Normal 0.358-3.74 [facility] Comment on above: Performed By: #### L 501.5425, L500.2500, L100.0100 #### [facility] [address] [place], [address] Urea Nitrogen, Urineon 04-01 URINE UREA 1108 mg/dL Normal NO RANGE EST. [facility] Comment on above: Performed By: #### L 500.4050, L501.4020, L100.0100 #### [facility] [address] [place], [address] 12 Lead EKGon 03-31-2024 12 Lead EKG [facility] [address] [place] [address] 12 Lead EKG 03/31/24 2134 MR#: [id number] Acct: [id number] Name: DOMONIQUE MARI Rep #: [id number] : 1940 83 From: Ray Bey MD Attending Dr: Dr. Rell Ortega DO Status : DIS IN Ordering Dr: Marcos Cole DO Date: 03/31/24 [place] [facility] [place] F C Admitted: 04/01/24 Test Reason : DYSRHYTHMIA Blood Pressure : / mmHG Vent. Rate : 064 BPM Atrial Rate : 064 BPM P-R Int : 258 ms QRS Dur : 104 ms QT Int : 440 ms P-R-T Axes : 099 -04 063 degrees QTc Int : 453 ms Sinus rhythm with 1st degree A-V block Incomplete right bundle branch block Borderline ECG Confirmed by Ray Bey ([id number]), newspaper copy editor ROOPA BYERS ([id number]) on 04/03/2024 2:11:07 PM Referred By: Confirmed By:Ray Bey 04/03/24 1411 Date Ray Bey MD CC: Dr. Rell Ortega DO; Dr. Zion Chaahl MD; Dr. Marcos Cole DO Signed Normal [facility] CBC W/Diff, Automatedon 08-0 Absolute Lymph 0.47 X10 3/uL Low 0.83-4.51 [facility] Comment on above: Performed By: #### L 500.4050, L501.4020, L100.0100 #### [facility] [address] [place], [address] Absolute Neut 4.8 X10 3/uL Normal 2.0-7.7 [facility] Comment on above: Performed By: #### L 500.4050, L501.4020, L100.0100 #### [facility] [address] [place], [address] Basophils/100 WBC (Bld) 0.2 % Normal 0-1 [facility] Comment on above: Performed By: #### L 500.4050, L501.4020, L100.0100 #### [facility] [address] [place], [address] Eosinophils/100 WBC (Bld) 0.0 % Normal 0-5 [facility] Comment on above: Performed By: #### L 500.4050, L501.4020, L100.0100 #### [facility] [address] [place], [address] Erythrocyte distribution width (RBC) [Ratio] 13.7 % Normal 11.6-14.6 [facility] Comment on above: Performed By: #### L 500.4050, L501.4020, L100.0100 #### [facility] [address] [place], [address] Hematocrit (Bld) [Volume fraction] 30.4 % Low 37-47 [facility] Comment on above: Performed By: #### L 500.4050, L501.4020, L100.0100 #### [facility] [address] [facility] [place], [address] Hemoglobin (Bld) [Mass/Vol] 10.0 g/dL Low 12.0-15.0 [facility] Comment on above: Performed By: #### L 500.4050, L501.4020, L100.0100 #### [facility] [address] [place], [address] IG% 0.500 Normal 0.0-0.9 [facility] Comment on above: Result Comment: IG% - Immature Granulocytes (promyelocytes, myelocytes and metamyelocytes) > 1% indicates that a LEFT SHIFT is Present. Performed By: #### L 500.4050, L501.4020, L100.0100 #### [facility] [address] [place], [address] Lymphocytes/100 WBC (Bld) 8.0 % Low 19-41 [facility] Comment on above: Performed By: #### L 500.4050, L501.4020, L100.0100 #### [facility] [address] [place], [address] MCH (RBC) [Entitic mass] 31.2 pg Normal 27.0-32.0 [facility] Comment on above: Performed By: #### L 500.4050, L501.4020, L100.0100 #### [facility] [address] [place], [address] MCHC (RBC) [Mass/Vol] 32.9 g/dL Normal 32-36 [facility] Comment on above: Performed By: #### L 500.4050, L501.4020, L100.0100 #### [facility] [address] [place], [address] MCV (RBC) [Entitic vol] 94.7 fL Normal 81-99 [facility] Comment on above: Performed By: #### L 500.4050, L501.4020, L100.0100 #### [facility] [address] [place], [address] Monocytes/100 WBC (Bld) 9.6 % Normal 0-10 [facility] Comment on above: Performed By: #### L 500.4050, L501.4020, L100.0100 #### [facility] [address] [place], [address] Neutrophils/100 WBC (Bld) 81.7 % High 47-70 [facility] Comment on above: Performed By: #### L 500.4050, L501.4020, L100.0100 #### [facility] [address] [place], [address] Nucleated RBC (Bld) [#/Vol] 0 10*3/uL Normal 0-5 [facility] Comment on above: Performed By: #### L 500.4050, L501.4020, L100.0100 #### [facility] [address] [place], [address] Platelet mean volume (Bld) [Entitic vol] 11.7 fL Normal 6.2-12.0 [facility] Comment on above: Performed By: #### L 500.4050, L501.4020, L100.0100 #### [facility] [address] [place], [address] Platelets (Bld) [#/Vol] 146 10*3/uL Low 150-450 [facility] Comment on above: Performed By: #### L 500.4050, L501.4020, L100.0100 #### [facility] [address] [place], [address] RBC (Bld) [#/Vol] 3.21 10*6/uL Low 4.2-5.4 [facility] Comment on above: Performed By: #### L 500.4050, L501.4020, L100.0100 #### [facility] [address] [place], [address] RDW SD 48.1 fl High 35.1-43.9 [facility] Comment on above: Performed By: #### L 500.4050, L501.4020, L100.0100 #### [facility] [address] [place], [address] WBC (Bld) [#/Vol] 5.9 10*3/uL Normal 4.4-11.0 [facility] Comment on above: Performed By: #### L 500.4050, L501.4020, L100.0100 #### [facility] [address] [place], [address] Chest PA and Lateralon 03-31 Chest PA and Lateral [facility] Imaging Services [address] [place] [address] Chest PA and Lateral MR#: [id number] Acct: [id number] Name: DOMONIQUE MARI Rep #: [id number] : 1940 F 83 From: Dominick hoyt MD PCP: Dr. Zion Chahal MD Status: [facility] Study: Chest PA and Lateral Date of Exam: 03/31/24 Exam# [id number] Ordering Dr: Marcos Cole DO [id number] STUDY: X-RAY CHEST REASON FOR EXAM: Female, 83 years old. cough TECHNIQUE: Frontal and lateral views of the chest. COMPARISON: 03/03/2024. FINDINGS: The lungs are hyperexpanded. There are coarsened interstitial markings suggestive of mild chronic fibrosis. Possible atelectasis or infiltrate in the right lung base. No gross effusions. There is mild cardiac enlargement. Normal mediastinum and linda. Normal visualized pulmonary arteries. There is atherosclerotic calcification of the aortic arch with tortuosity. There are diffuse degenerative changes of the visualized thoracic spine. Normal visualized ribs, clavicles, and shoulders. There is no demonstrated abnormality of the visualized soft tissue structures of the upper abdomen. RAD/Chest PA and Lateral IMPRESSION: COPD with fibrosis. Possible atelectasis or infiltrate of the right lung base. Electronically Signed: Dominick Mayo MD at 22:27 EDT , CC: Dr. Zion Chahal MD; Dr. Marcos Cole DO Group Home Supervisor: Signed Normal [facility] Comprehensive Metabolic Prof ilon 03-31-2024 Albumin [Mass/Vol] 3.1 g/dL Low 3.2-5.0 [facility] Comment on above: Order Comment: 'TROP ' Serial specimen #1, #2 or #3: 1 Performed By: #### L 500.4050, L501.4020, L100.0100 #### [facility] [place], [address] Albumin/Globulin [Mass ratio] 0.8 {ratio} Low 0.9-2.4 [facility] Comment on above: Order Comment: 'TROP ' Serial specimen #1, #2 or #3: 1 Performed By: #### L 500.4050, L501.4020, L100.0100 #### [facility] [address] [place], [address] ALK P 46 U/L Normal 45-117 [facility] Comment on above: Order Comment: 'TROP ' Serial specimen #1, #2 or #3: 1 Performed By: #### L 500.4050, L501.4020, L100.0100 #### [facility] [address] [place], [address] ALT [Catalytic activity/Vol] 64 U/L High 13-56 [facility] Comment on above: Order Comment: 'TROP ' Serial specimen #1, #2 or #3: 1 Performed By: #### L 500.4050, L501.4020, L100.0100 #### [facility] [address] [place], [address] AST [Catalytic activity/Vol] 56 U/L High 15-37 [facility] Comment on above: Order Comment: 'TROP ' Serial specimen #1, #2 or #3: 1 Performed By: #### L 500.4050, L501.4020, L100.0100 #### [facility] [address] [place], [address] Bilirubin [Mass/Vol] 0.50 mg/dL Normal 0.20-1.00 [facility] Comment on above: Order Comment: 'TROP ' Serial specimen #1, #2 or #3: 1 Result Comment: For patients on eltrombopag therapy, use of Dimension Bath TBIL is not recommended. Performed By: #### L 500.4050, L501.4020, L100.0100 #### [facility] [address] [place], [address] BUN/CRE 17.4 RATIO Normal 10-20 [facility] Comment on above: Order Comment: 'TROP ' Serial specimen #1, #2 or #3: 1 Performed By: #### L 500.4050, L501.4020, L100.0100 #### [facility] [address] [place], [address] CA,Total 8.1 mg/dL Low 8.5-10.1 [facility] Comment on above: Order Comment: 'TROP ' Serial specimen #1, #2 or #3: 1 Performed By: #### L 500.4050, L501.4020, L100.0100 #### [facility] [address] [place], [address] Chloride [Moles/Vol] 93 mmol/L Low 98-107 [facility] Comment on above: Order Comment: 'TROP ' Serial specimen #1, #2 or #3: 1 Performed By: #### L 500.4050, L501.4020, L100.0100 #### [facility] [address] [place], [address] CO2 [Moles/Vol] 27.0 mmol/L Normal 21.0-32.0 [facility] Comment on above: Order Comment: 'TROP ' Serial specimen #1, #2 or #3: 1 Performed By: #### L 500.4050, L501.4020, L100.0100 #### [facility] [address] [place], [address] Creatinine [Mass/Vol] 0.98 mg/dL Normal 0.55-1.02 [facility] Comment on above: Order Comment: 'TROP ' Serial specimen #1, #2 or #3: 1 Result Comment: The validity of the calculated GFR GFRAA in patients over 70 years has not been determined. Clinical correlation is essential. Performed By: #### L 500.4050, L501.4020, L100.0100 #### [facility] [address] [place], [address] ECRCL 33.19 ml/min Normal [facility] Comment on above: Order Comment: 'TROP ' Serial specimen #1, #2 or #3: 1 Performed By: #### L 500.4050, L501.4020, L100.0100 #### [facility] [address] [place], [address] EST GFR - AA 70 mL/min Normal >60 [facility] Comment on above: Order Comment: 'TROP ' Serial specimen #1, #2 or #3: 1 Result Comment: Afri can Mauritian GFR Calc Performed By: #### L 500.4050, L501.4020, L100.0100 #### [facility] [address] [place], [address] GAP 6 Normal 5-15 [facility] Comment on above: Order Comment: 'TROP ' Serial specimen #1, #2 or #3: 1 Performed By: #### L 500.4050, L501.4020, L100.0100 #### [facility] [address] [place], [address] GFR/1.73 sq M.predicted among non-blacks MDRD (S/P/Bld) [Vol rate/Area] 58 mL/min/{1.73_m2} Low >60 [facility] Comment on above: Order Comment: 'TROP ' Serial specimen #1, #2 or #3: 1 Result Comment: Non- GFR Calc Performed By: #### L 500.4050, L501.4020, L100.0100 #### [facility] [address] [place], [address] Globulin (S) [Mass/Vol] 3.8 g/dL Normal 2.2-4.2 [facility] Comment on above: Order Comment: 'TROP ' Serial specimen #1, #2 or #3: 1 Performed By: #### L 500.4050, L501.4020, L100.0100 #### [facility] [address] [place], [address] Glucose [Mass/Vol] 119 mg/dL High 74-106 [facility] Comment on above: Order Comment: 'TROP ' Serial specimen #1, #2 or #3: 1 Result Comment: Fast ing Glucose result from 100 to 125 mg/dL suggests IMPAIRED HOMEOSTASIS per A.D.A. criteria. Performed By: #### L 500.4050, L501.4020, L100.0100 #### [facility] [address] [place], [address] Potassium [Moles/Vol] 3.7 mmol/L Normal 3.5-5.1 [facility] Comment on above: Order Comment: 'TROP ' Serial specimen #1, #2 or #3: 1 Performed By: #### L 500.4050, L501.4020, L100.0100 #### [facility] [address] [place], [address] Sodium [Moles/Vol] 126 mmol/L Low 136-145 [facility] Comment on above: Order Comment: 'TROP ' Serial specimen #1, #2 or #3: 1 Performed By: #### L 500.4050, L501.4020, L100.0100 #### [facility] [address] [place], [address] T PROT 6.9 g/dL Normal 6.4-8.2 [facility] Comment on above: Order Comment: 'TROP ' Serial specimen #1, #2 or #3: 1 Performed By: #### L 500.4050, L501.4020, L100.0100 #### [facility] [address] [place], [address] Urea nitrogen [Mass/Vol] 17 mg/dL Normal 7-18 [facility] Comment on above: Order Comment: 'TROP ' Serial specimen #1, #2 or #3: 1 Performed By: #### L 500.4050, L501.4020, L100.0100 #### [facility] [address] [place], [address] L501.4020on 03-31-2024 TROPONIN-I HS 13 pg/mL Normal 3.0-54.0 [facility] Comment on above: Order Comment: 'TROP ' Serial specimen #1, #2 or #3: 1 Result Comment: Plecarter se Note: New Test Units and Gender Specific Reference Ranges. For more information see Policy Stat Procedure Bath High Sensitivity Troponin (TNIH) and attachments. Performed By: #### L 500.4050, L501.4020, L100.0100 #### [facility] [address] [place], [address] Lactic Acidon 03-31-2024 Lactate [Moles/Vol] 0.8 mmol/L Normal 0.4-1.9 [facility] Comment on above: Order Comment: Y Performed By: #### L 503.6005, L300.4310, L300.3900 #### [facility] [address] [place], [address] M100.678on 03-31-2024 M100.678 SARS-CoV-2 (COVID 19) A Positive A INFLUENZA A Negative INFLUENZA B Negative RSV PCR Negative SARS-CoV-2 (COVID 19) Normal [facility] Comment on above: Performed By: #### L 501.5425, L500.2500, L100.0100 #### [facility] [address] [place], [address] Partial Thromboplast Timeon 03-31-2024 aPTT Coag (Bld) [Time] 41.4 s High 24.1-36.2 [facility] Comment on above: Performed By: #### L 500.4050, L501.4020, L100.0100 #### [facility] [address] [place], [address] Prothrombin Time w/INRon INR Coag (PPP) [Relative time] 1.3 {INR} Normal [facility] Comment on above: Performed By: #### L 500.4050, L501.4020, L100.0100 #### [facility] [address] [place], [address] PT Coag (PPP) [Time] 15.8 s High 11.7-14.9 [facility] Comment on above: Performed By: #### L 500.4050, L501.4020, L100.0100 #### [facility] [address] [place], [address] Urinalysis, Completeon 03-31 BACTERIA 1+ /hpf Normal None Seen [facility] Comment on above: Order Comment: JARRETT CTOR TO SPECIFY Performed By: #### L 400.0001 #### [facility] [address] [place], [address] EPI,SQUAMOUS 0-5 SEEN Normal 5-10 [facility] Comment on above: Order Comment: JARRETT CTOR TO SPECIFY Performed By: #### L 400.0001 #### [facility] [address] [place], [address] Mucus Ql (Urine sed) RARE Normal [facility] Comment on above: Order Comment: JARRETT CTOR TO SPECIFY Performed By: #### L 400.0001 #### [facility] [address] [place], [address] RBC 10-25 SEEN Normal 0-5 [facility] Comment on above: Order Comment: JARRETT CTOR TO SPECIFY Performed By: #### L 400.0001 #### [facility] [address] [place], [address] WBC 0-5 SEEN Normal 0-5 [facility] Comment on above: Order Comment: JARRETT CTOR TO SPECIFY Performed By: #### L 400.0001 #### [facility] [address] [place], [address] Basic Metabolic Profile (BMP )on 03-13-2024 BUN/CRE 15.1 RATIO Normal 10-20 [facility] Comment on above: Performed By: #### L 500.4050, L501.4020, L100.0100 #### [facility] [address] [place], [address] CA,Total 8.4 mg/dL Low 8.5-10.1 [facility] Comment on above: Performed By: #### L 500.4050, L501.4020, L100.0100 #### [facility] [address] [place], [address] Chloride [Moles/Vol] 100 mmol/L Normal 98-107 [facility] Comment on above: Performed By: #### L 500.4050, L501.4020, L100.0100 #### [facility] [address] [place], [address] CO2 [Moles/Vol] 27.0 mmol/L Normal 21.0-32.0 [facility] Comment on above: Performed By: #### L 500.4050, L501.4020, L100.0100 #### [facility] [address] [place], [address] Creatinine [Mass/Vol] 1.26 mg/dL High 0.55-1.02 [facility]; [facility] Comment on above: Result Comment: The validity of the calculated GFR GFRAA in patients over 70 years has not been determined. Clinical correlation is essential. Performed By: #### L 500.4050, L501.4020, L100.0100 #### [facility] [address] [place], [address] EST GFR - AA 52 mL/min Low >60 [facility] Comment on above: Result Comment: Afri can Mauritian GFR Calc Performed By: #### L 500.4050, L501.4020, L100.0100 #### [facility] [address] [place], [address] GAP 7 Normal 5-15 [facility] Comment on above: Performed By: #### L 500.4050, L501.4020, L100.0100 #### [facility] [address] [place], [address] GFR/1.73 sq M.predicted among non-blacks MDRD (S/P/Bld) [Vol rate/Area] 43 mL/min/{1.73_m2} Low >60 [facility] Comment on above: Result Comment: Non- GFR Calc Performed By: #### L 500.4050, L501.4020, L100.0100 #### [facility] [address] [place], [address] Glucose [Mass/Vol] 96 mg/dL Normal 74-106 [facility]. Comment on above: Performed By: #### L 500.4050, L501.4020, L100.0100 #### [facility] [address] [place], [address] Potassium [Moles/Vol] 3.9 mmol/L Normal 3.5-5.1 [facility]; [facility], [facility]. Comment on above: Performed By: #### L 500.4050, L501.4020, L100.0100 #### [facility] [address] [place], [address] Sodium [Moles/Vol] 134 mmol/L Low 136-145 [facility] Comment on above: Performed By: #### L 500.4050, L501.4020, L100.0100 #### [facility] [address] [place], [address] Urea nitrogen [Mass/Vol] 19 mg/dL High 7-18 [employer] Comment on above: Performed By: #### L 500.4050, L501.4020, L100.0100 #### [facility] [address] [place], [address] Laboratory - Chemistry and C hemistry - challengeon 03-13-2024 Calcium [Mass/Vol] - Normal 8.4 - 10. 6 mg/dL [employer], Fourteen IP. CO2 [Moles/Vol] 27.0 {omkar/L} Normal 22.0 - 32.0 {omkar/L} [employer], Fourteen IP. Urea nitrogen/Creatinine [Mass ratio] 15.1 mg/mg Normal 0 - 30 [employer]. No Panel Informationon 03-13 - Normal [employer]. 52 Normal [employer]. 43 Normal [employer]. Basic Metabolic Profile (BMP )on 03-04-2024 BUN Normal 7-18 [facility] Comment on above: Result Comment: Canc elled via OM: Order cancelled - Patient discharged Performed By: #### L 501.5425, L500.2500, L100.0100 #### [facility] [address] [place], [address] BUN/CRE Normal 10-20 [facility] Comment on above: Result Comment: Canc elled via OM: Order cancelled - Patient discharged Performed By: #### L 501.5425, L500.2500, L100.0100 #### [facility] [address] [place], [address] CA,Total Normal 8.5-10.1 [facility] Comment on above: Result Comment: Canc elled via OM: Order cancelled - Patient discharged Performed By: #### L 501.5425, L500.2500, L100.0100 #### [facility] [address] [place], [address] CL Normal 98-107 [facility] Comment on above: Result Comment: Canc elled via OM: Order cancelled - Patient discharged Performed By: #### L 501.5425, L500.2500, L100.0100 #### [facility] [address] [place], [address] CO2 Normal 21.0-32.0 [facility] [facility] Comment on above: Result Comment: Canc elled via OM: Order cancelled - Patient discharged Performed By: #### L 501.5425, L500.2500, L100.0100 #### [facility] [address] [place], [address] CREAT,SERUM Normal 0.55-1.02 [facility] Comment on above: Result Comment: Canc elled via OM: Order cancelled - Patient discharged Performed By: #### L 501.5425, L500.2500, L100.0100 #### [facility] [address] [place], [address] EST GFR Normal >60 [facility] Comment on above: Result Comment: Canc elled via OM: Order cancelled - Patient discharged Performed By: #### L 501.5425, L500.2500, L100.0100 #### [facility] [address] [place], [address] EST GFR - AA Normal >60 [facility] Comment on above: Result Comment: Canc elled via OM: Order cancelled - Patient discharged Performed By: #### L 501.5425, L500.2500, L100.0100 #### [facility] [address] [place], [address] GAP Normal 5-15 [facility] Comment on above: Result Comment: Canc elled via OM: Order cancelled - Patient discharged Performed By: #### L 501.5425, L500.2500, L100.0100 #### [facility] [address] [place], [address] GLU Normal 74-106 [facility] Comment on above: Result Comment: Canc elled via OM: Order cancelled - Patient discharged Performed By: #### L 501.5425, L500.2500, L100.0100 #### [facility] [address] [place], [address] Potassium Normal 3.5-5.1 [facility] Comment on above: Result Comment: Canc elled via OM: Order cancelled - Patient discharged Performed By: #### L 501.5425, L500.2500, L100.0100 #### [facility] [address] [place], [address] Basic Metabolic Profile (BMP) Normal 136-145 [facility] Comment on above: Result Comment: Canc elled via OM: Order cancelled - Patient discharged Performed By: #### L 501.5425, L500.2500, L100.0100 #### [facility] [address] [place], [address] CBC W/Diff, Automatedon 07-0 -2023 Absolute Neut Normal 2.0-7.7 [facility] Comment on above: Result Comment: Canc elled via OM: Order cancelled - Patient discharged Performed By: #### L 501.5425, L500.2500, L100.0100 #### [facility] [address] [place], [address] HCT Normal 37-47 [facility] Comment on above: Result Comment: Canc elled via OM: Order cancelled - Patient discharged Performed By: #### L 501.5425, L500.2500, L100.0100 #### [facility] [address] [place], [address] HGB Normal 12.0-15.0 [facility] Comment on above: Result Comment: Canc elled via OM: Order cancelled - Patient discharged Performed By: #### L 501.5425, L500.2500, L100.0100 #### [facility] [address] [place], [address] MCH Normal 27.0-32.0 [facility] Comment on above: Result Comment: Canc elled via OM: Order cancelled - Patient discharged Performed By: #### L 501.5425, L500.2500, L100.0100 #### [facility] [address] [place], [address] MCHC Normal 32-36 [facility] Comment on above: Result Comment: Canc elled via OM: Order cancelled - Patient discharged Performed By: #### L 501.5425, L500.2500, L100.0100 #### [facility] [address] [place], [address] MCV Normal 81-99 [facility] Comment on above: Result Comment: Canc elled via OM: Order cancelled - Patient discharged Performed By: #### L 501.5425, L500.2500, L100.0100 #### [facility] [address] [place], [address] NEUT% Normal 47-70 [facility] Comment on above: Result Comment: Canc elled via OM: Order cancelled - Patient discharged Performed By: #### L 501.5425, L500.2500, L100.0100 #### [facility] [address] [place], [address] PLT Normal 150-450 [facility] Comment on above: Result Comment: Canc elled via OM: Order cancelled - Patient discharged Performed By: #### L 501.5425, L500.2500, L100.0100 #### [facility] [address] [place], [address] RBC Normal 4.2-5.4 [facility] Comment on above: Result Comment: Canc elled via OM: Order cancelled - Patient discharged Performed By: #### L 501.5425, L500.2500, L100.0100 #### [facility] [address] [place], [address] RDW CV Normal 11.6-14.6 [facility] Comment on above: Result Comment: Canc elled via OM: Order cancelled - Patient discharged Performed By: #### L 501.5425, L500.2500, L100.0100 #### [facility] [address] [place], [address] RDW SD Normal 35.1-43.9 [facility] Comment on above: Result Comment: Canc elled via OM: Order cancelled - Patient discharged Performed By: #### L 501.5425, L500.2500, L100.0100 #### [facility] [address] [place], [address] WBC Normal 4.4-11.0 [facility] Comment on above: Result Comment: Canc elled via OM: Order cancelled - Patient discharged Performed By: #### L 501.5425, L500.2500, L100.0100 #### [facility] [address] [place], [address] 12 Lead EKGon 03-03-2024 12 Lead EKG [facility] [address] [place] [address] 12 Lead EKG 03/03/24 0326 MR#: [id number] Acct: [id number] Name: DOMONIQUE MARI Rep #: [id number] : 1940 83 From: Ray Bey MD Attending Dr: Dr. Thomas Cast MD Status : DIS IN Ordering Dr: Thomas Cast MD Date: 03/03/24 Location: [facility] Sex: F C Admitted: 03/03/24 Test Reason : CP Blood Pressure : / mmHG Vent. Rate : 121 BPM Atrial Rate : 000 BPM P-R Int : 000 ms QRS Dur : 090 ms QT Int : 298 ms P-R-T Axes : 000 -10 092 degrees QTc Int : 423 ms Atrial fibrillation with rapid ventricular response Septal infarct , age undetermined Abnormal ECG Confirmed by Ray Bey ([id number]), newspaper copy editor SHILPI CEJA ([id number]) on 03/06/2024 10:34:57 AM Referred By: NIYAH Confirmed By:Ray Bey 03/06/24 103 Date Ray Bey MD CC: Dr. Zion Chahal MD; Dr. Thomas Cast MD Signed Normal [facility] 12 Lead EKG [facility] [address] [place] [address] 12 Lead EKG 03/03/24 0945 MR#: [id number] Acct: [id number] Name: DOMONIQUE MARI Rep #: [id number] : 1940 83 From: Javier Lehman MD Attending Dr: Dr. Thomas Cast MD Status : DIS IN Ordering Dr: Patrica Mendoza MD Date: 03/03/24 Location: [facility] Sex: F C Admitted: 03/03/24 Test Reason : CHANGE Blood Pressure : / mmHG Vent. Rate : 064 BPM Atrial Rate : 064 BPM P-R Int : 204 ms QRS Dur : 092 ms QT Int : 404 ms P-R-T Axes : 074 -09 059 degrees QTc Int : 416 ms Normal sinus rhythm with sinus arrhythmia Normal ECG When compared with ECG of 03-MAR-2024 03:26, MANUAL COMPARISON REQUIRED, DATA IS UNCONFIRMED Confirmed by DACIA CAVAZOS, JAVIER ([id number]), newspaper copy editor SHILPI CEJA ([id number]) on 03/06/2024 10:26:33 AM Referred By: SOSA Confirmed By:JAVIER LEHMAN MD 03/06/24 1026 Date Javier Lehman MD CC: Dr. Patrica Mendoza MD; Dr. Zion Chahal MD; Dr. Thomas Cast MD Signed Normal [facility] Basic Metabolic Profile (BMP )on 03-03-2024 BUN/CRE 19.2 RATIO Normal 10-20 [facility] Comment on above: Order Comment: 1 Y Performed By: #### L 501.5425, L500.2500, L100.0100 #### [facility] [address] [place], [address] CA,Total 9.1 mg/dL Normal 8.5-10.1 [facility] Comment on above: Order Comment: 1 Y Performed By: #### L 501.5425, L500.2500, L100.0100 #### [facility] [address] [place], [address] Chloride [Moles/Vol] 104 mmol/L Normal 98-107 [facility] Comment on above: Order Comment: 1 Y Performed By: #### L 501.5425, L500.2500, L100.0100 #### [facility] [address] [place], [address] CO2 [Moles/Vol] 23.0 mmol/L Normal 21.0-32.0 [facility] Comment on above: Order Comment: 1 Y Performed By: #### L 501.5425, L500.2500, L100.0100 #### [facility] [address] [place], [address] Creatinine [Mass/Vol] 1.04 mg/dL High 0.55-1.02 [facility] Comment on above: Order Comment: 1 Y Result Comment: The validity of the calculated GFR GFRAA in patients over 70 years has not been determined. Clinical correlation is essential. Performed By: #### L 501.5425, L500.2500, L100.0100 #### [facility] [address] [place], [address] ECRCL 31.28 ml/min Normal [facility] Comment on above: Order Comment: 1 Y Performed By: #### L 501.5425, L500.2500, L100.0100 #### [facility] [address] [place], [address] EST GFR - AA 65 mL/min Normal >60 [facility] Comment on above: Order Comment: 1 Y Result Comment: Afri can Mauritian GFR Calc Performed By: #### L 501.5425, L500.2500, L100.0100 #### [facility] [address] [place], [address] GAP 11 Normal 5-15 [facility] Comment on above: Order Comment: 1 Y Performed By: #### L 501.5425, L500.2500, L100.0100 #### [facility] [address] [place], [address] GFR/1.73 sq M.predicted among non-blacks MDRD (S/P/Bld) [Vol rate/Area] 54 mL/min/{1.73_m2} Low >60 [facility] Comment on above: Order Comment: 1 Y Result Comment: Non- GFR Calc Performed By: #### L 501.5425, L500.2500, L100.0100 #### [facility] [address] [place], [address] Glucose [Mass/Vol] 142 mg/dL High 74-106 [facility] Comment on above: Order Comment: 1 Y Result Comment: Fast ing Glucose result greater than or equal to 126 mg/dL suggests DIABETES MELLITUS per A.D.A. criteria. Performed By: #### L 501.5425, L500.2500, L100.0100 #### [facility] [address] [place], [address] Potassium [Moles/Vol] 3.7 mmol/L Normal 3.5-5.1 [facility] Comment on above: Order Comment: 1 Y Performed By: #### L 501.5425, L500.2500, L100.0100 #### [facility] [address] [place], [address] Sodium [Moles/Vol] 138 mmol/L Normal 136-145 [facility] Comment on above: Order Comment: 1 Y Performed By: #### L 501.5425, L500.2500, L100.0100 #### [facility] [address] [place], [address] Urea nitrogen [Mass/Vol] 20 mg/dL High 7-18 [facility] Comment on above: Order Comment: 1 Y Performed By: #### L 501.5425, L500.2500, L100.0100 #### [facility] [address] [place], [address] CBC W/Diff, Automatedon 07-0 5-4 Absolute Lymph 2.34 X10 3/uL Normal 0.83-4.51 [facility] Comment on above: Performed By: #### L 501.5425, L500.2500, L100.0100 #### [facility] [address] [place], [address] Absolute Neut 2.2 X10 3/uL Normal 2.0-7.7 [facility] Comment on above: Performed By: #### L 501.5425, L500.2500, L100.0100 #### [facility] [address] [place], [address] Basophils/100 WBC (Bld) 0.4 % Normal 0-1 [facility] Comment on above: Performed By: #### L 501.5425, L500.2500, L100.0100 #### [facility] [address] [place], [address] Eosinophils/100 WBC (Bld) 2.7 % Normal 0-5 [facility] Comment on above: Performed By: #### L 501.5425, L500.2500, L100.0100 #### [facility] [address] [place], [address] Erythrocyte distribution width (RBC) [Ratio] 13.7 % Normal 11.6-14.6 [facility] Comment on above: Performed By: #### L 501.5425, L500.2500, L100.0100 #### [facility] [address] [place], [address] Hematocrit (Bld) [Volume fraction] 34.5 % Low 37-47 [facility] Comment on above: Performed By: #### L 501.5425, L500.2500, L100.0100 #### [facility] [address] [place], [address] Hemoglobin (Bld) [Mass/Vol] 11.1 g/dL Low 12.0-15.0 [facility] Comment on above: Performed By: #### L 501.5425, L500.2500, L100.0100 #### [facility] [address] [place], [address] IG% 0.200 Normal 0.0-0.9 [facility] Comment on above: Result Comment: IG% - Immature Granulocytes (promyelocytes, myelocytes and metamyelocytes) > 1% indicates that a LEFT SHIFT is Present. Performed By: #### L 501.5425, L500.2500, L100.0100 #### [facility] [address] [place], [address] Lymphocytes/100 WBC (Bld) 45.7 % High 19-41 [facility] Comment on above: Performed By: #### L 501.5425, L500.2500, L100.0100 #### [facility] [address] [place], [address] MCH (RBC) [Entitic mass] 30.8 pg Normal 27.0-32.0 [facility] Comment on above: Performed By: #### L 501.5425, L500.2500, L100.0100 #### [facility] [address] [place], [address] MCHC (RBC) [Mass/Vol] 32.2 g/dL Normal 32-36 [facility] Comment on above: Performed By: #### L 501.5425, L500.2500, L100.0100 #### [facility] [address] [place], [address] MCV (RBC) [Entitic vol] 95.8 fL Normal 81-99 [facility] Comment on above: Performed By: #### L 501.5425, L500.2500, L100.0100 #### [facility] [address] [place], [address] Monocytes/100 WBC (Bld) 7.6 % Normal 0-10 [facility] Comment on above: Performed By: #### L 501.5425, L500.2500, L100.0100 #### [facility] [address] [place], [address] Neutrophils/100 WBC (Bld) 43.4 % Low 47-70 [facility] Comment on above: Performed By: #### L 501.5425, L500.2500, L100.0100 #### [facility] [address] [place], [address] Nucleated RBC (Bld) [#/Vol] 0 10*3/uL Normal 0-5 [facility] Comment on above: Performed By: #### L 501.5425, L500.2500, L100.0100 #### [facility] [address] [place], [address] Platelet mean volume (Bld) [Entitic vol] 11.8 fL Normal 6.2-12.0 [facility] Comment on above: Performed By: #### L 501.5425, L500.2500, L100.0100 #### [facility] [address] [place], [address] Platelets (Bld) [#/Vol] 178 10*3/uL Normal 150-450 [facility] Comment on above: Performed By: #### L 501.5425, L500.2500, L100.0100 #### [facility] [address] [place], [address] RBC (Bld) [#/Vol] 3.60 10*6/uL Low 4.2-5.4 [facility] Comment on above: Performed By: #### L 501.5425, L500.2500, L100.0100 #### [facility] [address] [place], [address] RDW SD 48.6 fl High 35.1-43.9 [facility] Comment on above: Performed By: #### L 501.5425, L500.2500, L100.0100 #### [facility] [address] [place], [address] WBC (Bld) [#/Vol] 5.1 10*3/uL Normal 4.4-11.0 [facility] Comment on above: Performed By: #### L 501.5425, L500.2500, L100.0100 #### [facility] [address] [place], [address] Chest 1 View (Portable)on Chest 1 View (Portable) [facility] Imaging Services [address] [place] [address] Chest 1 View (Portable) MR#: [id number] Acct: [id number] Name: DOMONIQUE MARI Rep #: [id number] : 1940 F 83 From: Tres Portillo PCP: Dr. Zion Chahal MD Status: DIS IN Study: Chest 1 View (Portable) Date of Exam: 03/03/24 Exam# [id number] Ordering Dr: Patrica Mendoza MD [id number] INDICATION: chest pain EXAMINATION/TECHNIQU E: X-RAY - XR Chest 1 View COMPARISON: No relevant prior comparison study available ____ FINDINGS: LINES/DEVICES: None. LUNGS: No consolidation, edema or effusion. No pneumothorax. MEDIASTINUM AND CARDIOVASCULAR STRUCTURES: Cardiac silhouette is moderately enlarged. Central airways and mediastinal contour are unremarkable. BONES AND SOFT TISSUES: Unremarkable. RAD/Chest 1 View (Portable) IMPRESSION: Moderate cardiomegaly. Electronically Signed: Tres Walsh MD at 5:00 EDT Reading Location ID and State: [address] [place] [address] Tel , Service support , CC: Dr. Patrica Mendoza MD; Dr. Zion Chahal MD Group Home Supervisor: Signed Normal [facility] Discharge Instructionon Discharge Instruction [facility] Medical Records Department [address] [place] [address] Instructions for Home/Discharge Instructions 03/03/24 1231 MR#: [id number] Acct: [id number] Name: DOMONIQUE MARI Rep #: [id number] : 1940 83 From: Thomas Cast MD PCP: Dr. Zion Chahal MD Status:ADM IN Discharge Instructions Diet Discharge Diet: Low fat / Low cholesterol Activity Discharge Activity: Return to Normal Activity Dressing / Incision Call your doctor if you observe: Fever of 101 or Higher, Shortness of breath, Dizziness, Fainting spells, Swelling in the ankles, Chest pain and Increased palpitations (irregular heartbeat) Follow Up Care Test Results: Test results from this visit will be discussed in further detail at your follow-up appointment, if applicable. Discharge Plan Admission Admit Date/Time: 03/03/24 07:04 Attending Provider: Thomas Cast Primary Care Provider: Zion Chahal Discharge Orders/Prescriptions Prescriptions: New amiodarone 200 mg Tablet 200 mg PO DAILY 30 Days Qty: 60 0RF Rx Instructions: Take twice daily for 7 days then decrease to daily dosing Continued escitalopram oxalate 20 mg tablet 20 mg PO DAILY potassium chloride 10 mEq tablet extended release 10 meq PO DAILY Qty: 90 3RF aspirin [Arlet Chewable Aspirin] 81 mg tablet,chewable 1 tab PO DAILY alendronate 70 mg tablet 70 mg PO QWEEK atorvastatin 80 mg tablet See Rx Instructions .ROUTE .COMPLEX Qty: 90 3RF Dose Instruction: TAKE 1 TABLET AT BEDTIME Rx Instructions: TAKE 1 TABLET AT BEDTIME Eliquis 2.5 mg tablet See Rx Instructions .ROUTE .COMPLEX Qty: 180 3RF Dose Instruction: TAKE 1 TABLET TWICE DAILY Rx Instructions: TAKE 1 TABLET TWICE DAILY Entresto 24-26 mg tablet 1 tab PO BID Qty: 180 3RF carvedilol 25 mg tablet 25 mg PO .COMPLEX Qty: 180 3RF Rx Instructions: 25 mg orally Take a 25 mg tablet with a 12.5 mg tablet TWICE DAILY to = 37.5 TWICE A DAY; must administer with a meal/food carvedilol 12.5 mg tablet 12.5 mg PO .COMPLEX Qty: 180 3RF Rx Instructions: 12.5 mg orally Take with a 25 mg to = 37.5 mg TWICE a day; dose increased in hospital.; must administer with a meal/food Discontinued diltiazem HCl 120 mg Capsule,Extended Release 24hr 120 mg PO DAILY Qty: 30 0RF Rx Instructions: Start on 02/13/2024 No Action levothyroxine 112 MCG tablet 112 mcg PO DAILY PRN Rx Instructions: TAKES EVERY Wednesday Referrals / Follow Up: Javier Lehman MD [Med Staff - Active Staff] - Within 1 Month Zion Chahal MD [Primary Care Provider] - Within 1 Week Disposition Disposition (needs filled in before D/C Order can be placed): Home, Self Care 03/03/24 1236 Thomas Cast MD CC: Dr. Zion Chahal MD Signed Normal [facility] Emergency Department Summary on 03-03-2024 Emergency Department Summary [facility] Medical Records Department [address] [place] [address] Emergency Department Summary 03/03/24 MR#: [id number] Acct: [id number] Name: DOMONIQUE MARI Rep #: [id number] : 1940 83 From: Patrica Mendoza MD PCP: Dr. Zion Chahal MD Status:REG ER Location: ED HPI History of Present Illness Chief Complaint: Chest Pain Informant: patient Onset/Context/Timing Onset: Today Narrative Narrative: Patient presents with approximate 25 minutes of chest pain. Patient states she got up during the night to go the bathroom and developed chest pain. She describes it as a burning sensation. She does have a history of paroxysmal A-fib and does appear to be in A-fib RVR at this time. Patient is chronically on Eliquis and states that she has been taking her medication. She was admitted to the hospital briefly last month with A-fib RVR and she converted to sinus rhythm. She was started on oral Cardizem during that visit. No other recent medication changes. 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 PAF (paroxysmal atrial fibrillation) Nonrheumatic aortic (valve) stenosis Compression fracture Essential (primary) hypertension Premature ventricular beats Myocarditis Solar elastosis Arthritis Depression Right leg DVT Nonsustained paroxysmal ventricular tachycardia Non-ischemic cardiomyopathy Home Medications ???Medication ???Instructions ???Recorded ???Last Taken ???Type levothyroxine 112 mcg tablet 112 mcg PO DAILY PRN hypothroidism 02/17/20 04/21/23 History escitalopram oxalate 20 mg tablet 20 mg PO DAILY anxiety 07/29/21 04/23/23 History atorvastatin 80 mg tablet See Rx Instructions .Route 10/14/23 Unknown Rx .COMPLEX #90 tabs apixaban 2.5 mg tablet (Eliquis) See Rx Instructions .Route 11/01/23 Unknown Rx .COMPLEX #180 tabs sacubitril 24 mg-valsartan 26 mg 1 tab PO BID #180 tabs 11/29/23 Unknown Rx tablet (Entresto) carvedilol 12.5 mg tablet 12.5 mg PO .COMPLEX #180 tabs 02/09/24 Unknown Rx carvedilol 25 mg tablet 25 mg PO .COMPLEX waiting on mail 02/09/24 Unknown Rx in RX #180 tabs aspirin 81 mg chewable tablet 1 tab PO DAILY blood thinner 02/12/24 Unknown History (Arlet Chewable Low Dose Aspirin) diltiazem HCl 120 mg 120 mg PO DAILY #30 caps 02/12/24 Unknown Rx capsule,extended release 24 hr potassium chloride 10 mEq 10 meq PO DAILY #90 tabs 02/18/24 Unknown Rx tablet,extended release alendronate 70 mg tablet 70 mg PO QWEEK 03/03/24 Unknown History Allergy/AdvReac Type Severity Reaction Status Date / Time imiquimod (From Aldara) Allergy Unknown Verified 03/03/24 03:27 Penicillins (PCN) Allergy Anaphylaxis Verified 03/03/24 03:27 amlodipine AdvReac Intermediate swelling Verified 03/03/24 03:27 in feet and legs dapagliflozin (From Farxiga) AdvReac Intermediate Lightheaded Verified 03/03/24 03:27 and faint ciprofloxacin (From Cipro) AdvReac Other Verified 03/03/24 03:27 furosemide AdvReac low saodium Verified 03/03/24 03:27 hydrochlorothiazide AdvReac hyponatremi Verified 03/03/24 03:27 a magnesium AdvReac Nausea Verified 03/03/24 03:27 prednisone AdvReac Upset Verified 03/03/24 03:27 Stomach Family History Mother Heart disease Father Heart disease Surgical History History of coronary artery stent placement (01/21/23) History of cataract surgery History of right hip replacement History of hysterectomy History of left heart catheterization (02/19/11) Social History household members: none Smoking Status: Former smoker how long ago did patient quit smokin years ago alcohol intake: current alcohol intake frequency: holidays/special occasions only substance use type: does not use caffeine: Yes Type: coffee Number of servings: 1 ROS ROS ED Constitutional Constitutional ED: Denies chills or fever(s) Eyes Eyes: Denies change in vision ENT ENT ED: Denies rhinorrhea or sore throat Cardiovascular Cardiovascular: Reports chest pain, palpitations and racing heartbeat Respiratory/Chest Respiratory/Chest: Reports dyspnea; Denies cough Gastrointestinal Gastrointestinal: Reports nausea; Denies abdominal pain or vomiting Musculoskeletal Musculoskeletal: Denies back pain or extremity pain Integumentary Denies Abrasions or rash Neurologic Neurologic: Denies headache(s) or weakness Psychiatric Psychiatric: Denies anxiety or depression Allergic/Immunologic Allergic/Immunologic ED: Den (more content not included)... Normal [facility] H AND P Exam - Hospitaliston 03-03-2024 H&P Exam - Hospitalist [facility] Medical Records Department [address] [place] [address] H P Exam - Hospitalist 03/03/24 1237 MR#: [id number] Acct: [id number] Name: DOMONIQUE MARI Rep #: [id number] : 1940 83 From: Thomas Cast MD PCP: Dr. Zion Chahal MD Status:ADM IN Location: [place] [id number] HPI - General General Date of Admission: 03/03/24 HPI Narrative DOMONIQUE MARI, is a 83 F who presents to the hospital with palpitations and chest pain. She was recently admitted in January for similar presentation, at that time she had elevated troponins and cardiology was consulted and added Cardizem. In January she was not having chest pain at this time around she is though it has resolved since arriving to the hospital. Delta troponin was negative and EKG was nonischemic. Currently she is denying any chest pain or shortness of breath. She had an echo in [facility] with an EF of 40 to 45%, her baseline echocardiograms and this is institution of demonstrated stage II diastolic dysfunction and an RVSP of 48 mmHg. She did have a TSH that was checked on her last admission that was normal. [facility] Medical History Elevated troponin SVT (supraventricular tachycardia) Anemia Acute hyponatremia Atherosclerosis of coronary artery of [place] heart without angina pectoris PAF (paroxysmal atrial fibrillation) Nonrheumatic aortic (valve) stenosis Compression fracture Essential (primary) hypertension Premature ventricular beats Myocarditis Solar elastosis Arthritis Depression Right leg DVT Nonsustained paroxysmal ventricular tachycardia Non-ischemic cardiomyopathy Home Medications ???Medication ???Instructions ???Recorded ???Last Taken ???Type levothyroxine 112 mcg tablet 112 mcg PO DAILY PRN hypothroidism 02/17/20 04/21/23 History escitalopram oxalate 20 mg tablet 20 mg PO DAILY anxiety 07/29/21 04/23/23 History atorvastatin 80 mg tablet See Rx Instructions .Route 10/14/23 Unknown Rx .COMPLEX #90 tabs apixaban 2.5 mg tablet (Eliquis) See Rx Instructions .Route 11/01/23 Unknown Rx .COMPLEX #180 tabs sacubitril 24 mg-valsartan 26 mg 1 tab PO BID #180 tabs 11/29/23 Unknown Rx tablet (Entresto) carvedilol 12.5 mg tablet 12.5 mg PO .COMPLEX #180 tabs 02/09/24 Unknown Rx carvedilol 25 mg tablet 25 mg PO .COMPLEX waiting on mail 02/09/24 Unknown Rx in RX #180 tabs aspirin 81 mg chewable tablet 1 tab PO DAILY blood thinner 02/12/24 Unknown History (Arlet Chewable Low Dose Aspirin) potassium chloride 10 mEq 10 meq PO DAILY #90 tabs 02/18/24 Unknown Rx tablet,extended release alendronate 70 mg tablet 70 mg PO QWEEK 03/03/24 Unknown History amiodarone 200 mg tablet 200 mg PO DAILY 30 days #60 tabs 03/03/24 Unknown Rx Allergy/AdvReac Type Severity Reaction Status Date / Time imiquimod (From Aldara) Allergy Unknown Verified 03/03/24 03:27 Penicillins (PCN) Allergy Anaphylaxis Verified 03/03/24 03:27 amlodipine AdvReac Intermediate swelling Verified 03/03/24 03:27 in feet and legs dapagliflozin (From Farxiga) AdvReac Intermediate Lightheaded Verified 03/03/24 03:27 and faint ciprofloxacin (From Cipro) AdvReac Other Verified 03/03/24 03:27 furosemide AdvReac low saodium Verified 03/03/24 03:27 hydrochlorothiazide AdvReac hyponatremi Verified 03/03/24 03:27 a magnesium AdvReac Nausea Verified 03/03/24 03:27 prednisone AdvReac Upset Verified 03/03/24 03:27 Stomach Family History Mother Heart disease Father Heart disease Surgical History History of coronary artery stent placement (01/21/23) History of cataract surgery History of right hip replacement History of hysterectomy History of left heart catheterization (02/19/11) Social History household members: none Smoking Status: Former smoker how long ago did patient quit smokin years ago alcohol intake: current alcohol intake frequency: holidays/special occasions only substance use type: does not use caffeine: Yes Type: coffee Number of servings: 1 ROS Constitutional Constitutional: Denies chills, fatigue, fever(s) or malaise Eyes Eyes: Denies blurry vision ENT HEENT: Denies headache(s) or nasal discharge Cardiovascular Cardiovascular: Reports chest pain and palpitations; Denies dyspnea on exertion or syncope Respiratory/Chest Respiratory/Chest: Denies cough, shortness of breath at rest or shortness of breath with exertion Gastrointestinal Gastrointestinal: Denies constipation, diarrhea, nausea or vomiting Genitourinary Genitourinary: Denies dysuria Neurologic Neurologic: Denies focal weakness, numbness or tremor (more content not included)... Normal [facility] [id number] 03-03-2024 TROPONIN-I HS 17 pg/mL Normal 3.0-54.0 [facility] Comment on above: Result Comment: Nile rudd Note: New Test Units and Gender Specific Reference Ranges. For more information see Policy Stat Procedure Bath High Sensitivity Troponin (TNIH) and attachments. Performed By: #### L 501.5740, L500.2500, L100.0100 #### [facility] [address] [place], [address] [id number] 03-03-2024 TROPONIN-I HS 15 pg/mL Normal 3.0-54.0 [facility] Comment on above: Order Comment: 1 Y Result Comment: Nile rudd Note: New Test Units and Gender Specific Reference Ranges. For more information see Policy Stat Procedure Bath High Sensitivity Troponin (TNIH) and attachments. Performed By: #### L 501.5425, L500.2500, L100.0100 #### [facility] [address] [place], [address] Laboratory - Hematology and Cell countson 02-07-2024 Hemoglobin (Bld) [Mass/Vol] 10.8 g/dL Abnormal 11.5 - 14.2 g/dL [facility], [facility]. Absolute lymphocyte countOrd ered By: Elsa Coleman on 04-24-2023 Lymphocytes Auto (Unsp spec) [#/Vol] 1.07 10*3/uL 0.83-4.51 [facility] Basophil percentageOrdered B y: Elsa Coleman on 04-24-2023 Basophil percentage 3.4 mg/dL 2.5-4.9 [facility] Basophils/100 WBC (Bld) 0.3 % 0-1 [facility] Bilirubin [Mass/Vol] 0.40 mg/dL 0.20-1.00 [facility] Comment on above: For patients on eltr ombopag therapy, use of Dimension Bath TBIL is not recommended. Chloride [Moles/Vol] 99 mmol/L 98-107 [facility] Eosinophils/100 WBC (Bld) 2.5 % 0-5 [facility] Glucose [Mass/Vol] 91 mg/dL 74-106 [facility] Neutrophils (Bld) [#/Vol] 2.0 10*3/uL 2.0-7.7 [facility] Neutrophils/100 WBC (Bld) 55.0 % 47-70 [facility] Potassium [Moles/Vol] 4.0 mmol/L 3.5-5.1 [facility] Protein [Mass/Vol] 6.6 g/dL 6.4-8.2 [facility] Sodium [Moles/Vol] 133 mmol/L 136-145 [facility] WBC (Bld) [#/Vol] 3.7 10*3/uL 4.4-11.0 [facility] Blood erythrocytes count (nu mber/volume)Ordered By: Elsa Coleman on 04-24-2023 RBC (Bld) [#/Vol] 3.32 10*6/uL 4.2-5.4 [facility] Blood hemoglobin measurement (mass/volume)Ordered By: Elsa Coleman on 04-24-2023 Hemoglobin (Bld) [Mass/Vol] 10.0 g/dL 12.0-15.0 [facility] Blood lymphocytes/100 leukoc ytesOrdered By: Elsa Coleman on 04-24-2023 Lymphocytes/100 WBC (Bld) 29.3 % 19-41 [facility] Blood monocytes/100 leukocyt esOrdered By: Elsa Coleman on 04-24-2023 Monocytes/100 WBC (Bld) 12.6 % 0-10 [facility] Blood platelet mean volumeOr dered By: Elsa Coleman on 04-24-2023 Platelet mean volume (Bld) [Entitic vol] 10.5 fL 6.2-12.0 [facility] Determination of erythrocyte mean corpuscular volume (MCV)Ordered By: Elsa Coleman on 04-24-2023 MCV (RBC) [Entitic vol] 92.5 fL 81-99 [facility] Hematocrit Auto (Bld) [Volum e fraction]Ordered By: Elsa Coleman on 04-24-2023 Hematocrit (Bld) [Volume fraction] 30.7 % 37-47 [facility] Laboratory - Chemistry and C hemistry - challengeOrdered By: Elsa Coleman on 04-24-2023 ALP [Catalytic activity/Vol] 58 U/L 45-117 [facility] ALT [Catalytic activity/Vol] 32 U/L 13-56 [facility] CO2 [Moles/Vol] 29.0 mmol/L 21.0-32.0 [facility] Globulin (S) [Mass/Vol] 3.5 g/dL 2.2-4.2 [facility] Magnesium [Mass/Vol] 2.3 mg/dL 1.6-2.6 [facility] Urea nitrogen/Creatinine [Mass ratio] 18.2 mg/mg 10-20 [facility] Laboratory - Hematology and Cell countsOrdered By: Elsa Coleman on 04-24-2023 Erythrocyte distribution width (RBC) [Entitic vol] 49.1 fL 35.1-43.9 [facility] Erythrocyte distribution width (RBC) [Ratio] 14.4 % 11.6-14.6 [facility] Immature granulocytes/100 WBC (Bld) 0.300 % 0.0-0.9 [facility] Comment on above: IG% - Immature Granu locytes (promyelocytes, myelocytes and metamyelocytes) > 1% indicates that a LEFT SHIFT is Present. MCH (RBC) [Entitic mass] 30.1 pg 27.0-32.0 [facility] Nucleated RBC/100 WBC (Bld) [Ratio] 0 % 0-5 [facility] MCHC Auto (RBC) [Mass/Vol]Or dered By: Elsa Coleman on 04-24-2023 MCHC (RBC) [Mass/Vol] 32.6 g/dL 32-36 [facility] No Panel InformationOrdered By: Elsa Coleman on 04-24-2023 Estimated Creatinine Clearance Calc 39.91 ml/min [facility] Estimated GFR (MDRD) Amer 85 mL/min >60 [facility] Comment on above: GFR Calc Estimated GFR (MDRD) Non-Af Amer 70 mL/min >60 [facility] Comment on above: Non- GFR Calc Thyroid Stimulating Hormone (TSH) 2.28 uIU/mL 0.358-3.74 [facility] Platelets bldOrdered By: Janna Coleman on 04-24-2023 Platelets (Bld) [#/Vol] 195 10*3/uL 150-450 [facility] Serum or plasma albumin tatiana urement (mass/volume)Ordered By: Elsa Coleman on 04-24-2023 Albumin [Mass/Vol] 3.1 g/dL 3.2-5.0 [facility] Serum or plasma albumin/glob ulin mass ratioOrdered By: Elsa Coleman on 04-24-2023 Albumin/Globulin [Mass ratio] 0.9 {ratio} 0.9-2.4 [facility] Serum or plasma calcium tatiana urement (mass/volume)Ordered By: Elsa Coleman on 04-24-2023 Calcium [Mass/Vol] 8.4 mg/dL 8.5-10.1 [facility] Serum or plasma creatinine m easurement (mass/volume)Ordered By: Elsa Coleman on 04-24-2023 Creatinine [Mass/Vol] 0.83 mg/dL 0.55-1.02 [facility] Comment on above: The validity of the calculated GFR & GFRAA in patients over 70 years has not been determined. Clinical correlation is essential. Serum or plasma urea nitroge n measurement (mass/volume)Ordered By: Elsa Coleman on 04-24-2023 Urea nitrogen [Mass/Vol] 15 mg/dL 7-18 [facility] Thin prep Papanicolaou smear with manual screeningOrdered By: Elsa Coleman on 04-24-2023 Thin prep Papanicolaou smear with manual screening 24 U/L 15-37 [facility] Thin prep Papanicolaou smear with manual screening 5 5-15 [facility] No Panel InformationOrdered By: Elsa Coleman on 04-23-2023 Troponin I High Sensitivity 16 pg/mL 3.0-54.0 [facility] Comment on above: Please Note: New Melody t Units and Gender Specific Reference Ranges. For more information see Policy Stat Procedure Bath High Sensitivity Troponin (TNIH) and attachments. Absolute lymphocyte countOrd ered By: Zion Chahal on 04-02-2023 Lymphocytes Auto (Unsp spec) [#/Vol] 1.36 10*3/uL 0.83-4.51 [facility] Basophil percentageOrdered B y: Zion Chahal on 04-02-2023 Basophils/100 WBC (Bld) 0.4 % 0-1 [facility] Eosinophils/100 WBC (Bld) 1.9 % 0-5 [facility] Neutrophils (Bld) [#/Vol] 2.8 10*3/uL 2.0-7.7 [facility] Neutrophils/100 WBC (Bld) 59.2 % 47-70 [facility] WBC (Bld) [#/Vol] 4.8 10*3/uL 4.4-11.0 [facility] Blood erythrocytes count (nu mber/volume)Ordered By: Zion Chahal on 04-02-2023 RBC (Bld) [#/Vol] 3.57 10*6/uL 4.2-5.4 [facility] Blood hemoglobin measurement (mass/volume)Ordered By: Zion hCahal on 04-02-2023 Hemoglobin (Bld) [Mass/Vol] 10.7 g/dL 12.0-15.0 [facility] Blood lymphocytes/100 leukoc ytesOrdered By: Zion Chahal on 04-02-2023 Lymphocytes/100 WBC (Bld) 28.5 % 19-41 [facility] Blood monocytes/100 leukocyt esOrdered By: Zion Chahal on 04-02-2023 Monocytes/100 WBC (Bld) 9.8 % 0-10 [facility] Blood platelet mean volumeOr dered By: Zion Chahal on 04-02-2023 Platelet mean volume (Bld) [Entitic vol] 10.5 fL 6.2-12.0 [facility] Determination of erythrocyte mean corpuscular volume (MCV)Ordered By: Zion Chahal on 04-02-2023 MCV (RBC) [Entitic vol] 94.7 fL 81-99 [facility] Hematocrit Auto (Bld) [Volum e fraction]Ordered By: Zion Chahal on 04-02-2023 Hematocrit (Bld) [Volume fraction] 33.8 % 37-47 [facility] Laboratory - Hematology and Cell countsOrdered By: Zion Chahal on 04-02-2023 Erythrocyte distribution width (RBC) [Entitic vol] 48.4 fL 35.1-43.9 [facility] Erythrocyte distribution width (RBC) [Ratio] 14.0 % 11.6-14.6 [facility] Immature granulocytes/100 WBC (Bld) 0.200 % 0.0-0.9 [facility] Comment on above: IG% - Immature Granu locytes (promyelocytes, myelocytes and metamyelocytes) > 1% indicates that a LEFT SHIFT is Present. MCH (RBC) [Entitic mass] 30.0 pg 27.0-32.0 [facility] Nucleated RBC/100 WBC (Bld) [Ratio] 0 % 0-5 [facility] MCHC Auto (RBC) [Mass/Vol]Or dered By: Zion Chahal on 04-02-2023 MCHC (RBC) [Mass/Vol] 31.7 g/dL 32-36 [facility] No Panel Informationon 04-02 4.8 K/mm3 Normal 4.4 - 11.0 K/mm3 [employer] 3.57 {M/mm3} Abnormal 4.2 - 5.4 {M/mm3} [employer] 10.7 g/dL Abnormal 12.0 - 15.0 g/dL [employer] 33.8 Abnormal 37 - 47 [employer] 94.7 fL Normal 81 - 99 fL [employer] 30.0 pg Normal 27.0 - 32.0 pg [employer] 31.7 g/dL Abnormal 32 - 36 g/dL [facility] [employer] 14.0 Normal 11.6 - 14.6 [employer] 48.4 fL Abnormal 35.1 - 43.9 fL [employer] 228 K/mm3 Normal 150 - 450 K/mm3 [employer] 10.5 fL Normal 6.2 - 12.0 fL [employer] 59.2 Normal 47 - 70 [employer] 28.5 Normal 19 - 41 [employer] [facility] 9.8 Normal 0 - 10 [employer] [facility] [employer] 1.9 Normal 0 - 5 [employer] [facility] 0.4 Normal 0 - 1 [employer] 0.200 Normal 0.0 - 0.9 [employer] 2.8 {X10_3/uL} Normal 2.0 - 7.7 {X10_3/uL} [email or web address] 1.36 {X10_3/uL} Normal 0.83 - 4.51 {X10_3/uL} [email or web address] 0 Normal 0 - 5 [employer] 1.13 {uIU/mL} Normal 0.358 - 3.74 {uIU/mL} [employer] No Panel InformationOrdered By: Zion Chahal on 04-02-2023 Thyroid Stimulating Hormone (TSH) 1.13 uIU/mL 0.358-3.74 [facility] Platelets bldOrdered By: Maykel Chahal on 04-02-2023 Platelets (Bld) [#/Vol] 228 10*3/uL 150-450 [facility] Absolute lymphocyte countOrd ered By: Uche Ordoñez on 03-05-2023 Lymphocytes Auto (Unsp spec) [#/Vol] 0.92 10*3/uL 0.83-4.51 [facility] Basophil percentageOrdered B y: Uche Ordoñez on 03-05-2023 Basophils/100 WBC (Bld) 0.2 % 0-1 [facility] Chloride [Moles/Vol] 100 mmol/L 98-107 [facility] Eosinophils/100 WBC (Bld) 1.2 % 0-5 [facility] Glucose [Mass/Vol] 107 mg/dL 74-106 [facility] Comment on above: Fasting Glucose resu lt from 100 to 125 mg/dL suggests IMPAIRED HOMEOSTASIS per A.D.A. criteria. Neutrophils (Bld) [#/Vol] 4.5 10*3/uL 2.0-7.7 [facility] Neutrophils/100 WBC (Bld) 75.3 % 47-70 [facility] Potassium [Moles/Vol] 3.8 mmol/L 3.5-5.1 [facility] Sodium [Moles/Vol] 134 mmol/L 136-145 [facility] WBC (Bld) [#/Vol] 6.0 10*3/uL 4.4-11.0 [facility] Blood erythrocytes count (nu mber/volume)Ordered By: Uche Ordoñez on 03-05-2023 RBC (Bld) [#/Vol] 3.33 10*6/uL 4.2-5.4 [facility] Blood hemoglobin measurement (mass/volume)Ordered By: Uche Ordoñez on 03-05-2023 Hemoglobin (Bld) [Mass/Vol] 10.1 g/dL 12.0-15.0 [facility] Blood lymphocytes/100 leukoc ytesOrdered By: Uche Ordoñez on 03-05-2023 Lymphocytes/100 WBC (Bld) 15.3 % 19-41 [facility] Blood monocytes/100 leukocyt esOrdered By: Uche Ordoñez on 03-05-2023 Monocytes/100 WBC (Bld) 7.8 % 0-10 [facility] Blood platelet mean volumeOr dered By: Uche Ordoñez on 03-05-2023 Platelet mean volume (Bld) [Entitic vol] 10.5 fL 6.2-12.0 [facility] Determination of erythrocyte mean corpuscular volume (MCV)Ordered By: Uche Ordoñez on 03-05-2023 MCV (RBC) [Entitic vol] 94.3 fL 81-99 [facility] Hematocrit Auto (Bld) [Volum e fraction]Ordered By: Uche Ordoñez on 03-05-2023 Hematocrit (Bld) [Volume fraction] 31.4 % 37-47 [facility] INR in Blood by Coagulation assayOrdered By: Uche Ordoñez on 03-05-2023 INR Coag (Bld) [Relative time] 1.4 {INR} [facility] Laboratory - Chemistry and C hemistry - challengeOrdered By: Uche Ordoñez on 03-05-2023 CO2 [Moles/Vol] 28.0 mmol/L 21.0-32.0 [facility] Urea nitrogen/Creatinine [Mass ratio] 17.9 mg/mg 10-20 [facility] Laboratory - CoagulationOrde red By: Uche Ordoñez on 03-05-2023 aPTT Coag (Bld) [Time] 33.8 s 24.1-36.2 [facility] PT Coag (PPP) [Time] 17.1 s 11.7-14.9 [facility] Laboratory - Hematology and Cell countsOrdered By: Uche Ordoñez on 03-05-2023 Erythrocyte distribution width (RBC) [Entitic vol] 47.1 fL 35.1-43.9 [facility] Erythrocyte distribution width (RBC) [Ratio] 13.9 % 11.6-14.6 [facility] Immature granulocytes/100 WBC (Bld) 0.200 % 0.0-0.9 [facility] Comment on above: IG% - Immature Granu locytes (promyelocytes, myelocytes and metamyelocytes) > 1% indicates that a LEFT SHIFT is Present. MCH (RBC) [Entitic mass] 30.3 pg 27.0-32.0 [facility] Nucleated RBC/100 WBC (Bld) [Ratio] 0 % 0-5 [facility] MCHC Auto (RBC) [Mass/Vol]Or dered By: Uche Ordoñez on 03-05-2023 MCHC (RBC) [Mass/Vol] 32.2 g/dL 32-36 [facility] No Panel InformationOrdered By: Uche Ordoñez on 03-05-2023 Estimated Creatinine Clearance Calc 31.25 ml/min [facility] Estimated GFR (MDRD) Amer 64 mL/min >60 [facility] Comment on above: GFR Calc Estimated GFR (MDRD) Non-Af Amer 53 mL/min >60 [facility] Comment on above: Non- GFR Calc Platelets bldOrdered By: Louise Ordoñez on 03-05-2023 Platelets (Bld) [#/Vol] 209 10*3/uL 150-450 [facility] Serum or plasma calcium tatiana urement (mass/volume)Ordered By: Uche Ordoñez on 03-05-2023 Calcium [Mass/Vol] 8.6 mg/dL 8.5-10.1 [facility] Serum or plasma creatinine m easurement (mass/volume)Ordered By: Uche Ordoñez on 03-05-2023 Creatinine [Mass/Vol] 1.06 mg/dL 0.55-1.02 [facility] Comment on above: The validity of the calculated GFR & GFRAA in patients over 70 years has not been determined. Clinical correlation is essential. Serum or plasma urea nitroge n measurement (mass/volume)Ordered By: Uche Ordoñez on 03-05-2023 Urea nitrogen [Mass/Vol] 19 mg/dL 7-18 [facility] Thin prep Papanicolaou smear with manual screeningOrdered By: Uche Ordoñez on 03-05-2023 Thin prep Papanicolaou smear with manual screening 6 5-15 [facility] Basophil percentageOrdered B y: Dr. Mack on 01-22-2023 Bilirubin [Mass/Vol] 0.40 mg/dL 0.20-1.00 [facility] Comment on above: For patients on eltr ombopag therapy, use of Dimension Bath TBIL is not recommended. Chloride [Moles/Vol] 107 mmol/L 98-107 [facility] Glucose [Mass/Vol] 99 mg/dL 74-106 [facility] Potassium [Moles/Vol] 3.6 mmol/L 3.5-5.1 [facility] Protein [Mass/Vol] 6.2 g/dL 6.4-8.2 [facility] Sodium [Moles/Vol] 140 mmol/L 136-145 [facility] WBC (Bld) [#/Vol] 5.6 10*3/uL 4.4-11.0 [facility] Blood erythrocytes count (nu mber/volume)Ordered By: Dr. Mack on 01-22-2023 RBC (Bld) [#/Vol] 3.13 10*6/uL 4.2-5.4 [facility] Blood hemoglobin measurement (mass/volume)Ordered By: Dr. Mack on 01-22-2023 Hemoglobin (Bld) [Mass/Vol] 9.4 g/dL 12.0-15.0 [facility] Blood platelet mean volumeOr dered By: Dr. Mack on 01-22-2023 Platelet mean volume (Bld) [Entitic vol] 10.4 fL 6.2-12.0 [facility] Determination of erythrocyte mean corpuscular volume (MCV)Ordered By: Dr. Mack on 01-22-2023 MCV (RBC) [Entitic vol] 95.8 fL 81-99 [facility] Hematocrit Auto (Bld) [Volum e fraction]Ordered By: Dr. Mack on 01-22-2023 Hematocrit (Bld) [Volume fraction] 30.0 % 37-47 [facility] Laboratory - Chemistry and C hemistry - challengeOrdered By: Dr. Mack on 01-22-2023 ALP [Catalytic activity/Vol] 120 U/L 45-117 [facility] ALT [Catalytic activity/Vol] 50 U/L 13-56 [facility] CO2 [Moles/Vol] 26.0 mmol/L 21.0-32.0 [facility] Globulin (S) [Mass/Vol] 3.5 g/dL 2.2-4.2 [facility] Urea nitrogen/Creatinine [Mass ratio] 30.3 mg/mg 10-20 [facility] Laboratory - Hematology and Cell countsOrdered By: Dr. Mack on 01-22-2023 Erythrocyte distribution width (RBC) [Entitic vol] 53.8 fL 35.1-43.9 [facility] Erythrocyte distribution width (RBC) [Ratio] 15.2 % 11.6-14.6 [facility] MCH (RBC) [Entitic mass] 30.0 pg 27.0-32.0 [facility] MCHC Auto (RBC) [Mass/Vol]Or dered By: Dr. Mack on 01-22-2023 MCHC (RBC) [Mass/Vol] 31.3 g/dL 32-36 [facility] No Panel InformationOrdered By: Dr. Mack on 01-22-2023 Estimated Creatinine Clearance Calc 33.12 ml/min [facility] Estimated GFR (MDRD) Amer 98 mL/min >60 [facility] Comment on above: GFR Calc Estimated GFR (MDRD) Non-Af Amer 81 mL/min >60 [facility] Comment on above: Non- GFR Calc Platelets bldOrdered By: Dr. Mack on 01-22-2023 Platelets (Bld) [#/Vol] 253 10*3/uL 150-450 [facility] Serum or plasma albumin tatiana urement (mass/volume)Ordered By: Dr. Mack on 01-22-2023 Albumin [Mass/Vol] 2.7 g/dL 3.2-5.0 [facility] Serum or plasma albumin/glob ulin mass ratioOrdered By: Dr. Mack on 01-22-2023 Albumin/Globulin [Mass ratio] 0.8 {ratio} 0.9-2.4 [facility] Serum or plasma calcium tatiana urement (mass/volume)Ordered By: Dr. Mack on 01-22-2023 Calcium [Mass/Vol] 8.4 mg/dL 8.5-10.1 [facility] Serum or plasma creatinine m easurement (mass/volume)Ordered By: Dr. Mack on 01-22-2023 Creatinine [Mass/Vol] 0.73 mg/dL 0.55-1.02 [facility] Comment on above: The validity of the calculated GFR & GFRAA in patients over 70 years has not been determined. Clinical correlation is essential. Serum or plasma urea nitroge n measurement (mass/volume)Ordered By: Dr. Mack on 01-22-2023 Urea nitrogen [Mass/Vol] 22 mg/dL 7-18 [facility] Thin prep Papanicolaou smear with manual screeningOrdered By: Dr. Mack on 01-22-2023 Thin prep Papanicolaou smear with manual screening 33 U/L 15-37 [facility] Thin prep Papanicolaou smear with manual screening 7 5-15 [facility] Absolute lymphocyte countOrd ered By: Sydney Delong on 01-04-2023 Lymphocytes Auto (Unsp spec) [#/Vol] 1.38 10*3/uL 0.83-4.51 [facility] Basophil percentageOrdered B y: Sydney Delong on 01-04-2023 Basophils/100 WBC (Bld) 0.7 % 0-1 [facility] Chloride [Moles/Vol] 102 mmol/L 98-107 [facility] Eosinophils/100 WBC (Bld) 5.9 % 0-5 [facility] Glucose [Mass/Vol] 104 mg/dL 74-106 [facility] Comment on above: Fasting Glucose resu lt from 100 to 125 mg/dL suggests IMPAIRED HOMEOSTASIS per A.D.A. criteria. Neutrophils (Bld) [#/Vol] 3.8 10*3/uL 2.0-7.7 [facility] Neutrophils/100 WBC (Bld) 62.7 % 47-70 [facility] Potassium [Moles/Vol] 4.4 mmol/L 3.5-5.1 [facility] Sodium [Moles/Vol] 137 mmol/L 136-145 [facility] WBC (Bld) [#/Vol] 6.0 10*3/uL 4.4-11.0 [facility] Blood erythrocytes count (nu mber/volume)Ordered By: Sydney Delong on 01-04-2023 RBC (Bld) [#/Vol] 3.42 10*6/uL 4.2-5.4 [facility] Blood hemoglobin measurement (mass/volume)Ordered By: Sydney Delong on 01-04-2023 Hemoglobin (Bld) [Mass/Vol] 10.6 g/dL 12.0-15.0 [facility] Blood lymphocytes/100 leukoc ytesOrdered By: Sydney Delong on 01-04-2023 Lymphocytes/100 WBC (Bld) 23.1 % 19-41 [facility] Blood monocytes/100 leukocyt esOrdered By: Sydney Delong on 01-04-2023 Monocytes/100 WBC (Bld) 7.4 % 0-10 [facility] Blood platelet mean volumeOr dered By: Sydney Delong on 01-04-2023 Platelet mean volume (Bld) [Entitic vol] 10.2 fL 6.2-12.0 [facility] Determination of erythrocyte mean corpuscular volume (MCV)Ordered By: Sydney Delong on 01-04-2023 MCV (RBC) [Entitic vol] 94.2 fL 81-99 [facility] Hematocrit Auto (Bld) [Volum e fraction]Ordered By: Sydney Delong on 01-04-2023 Hematocrit (Bld) [Volume fraction] 32.2 % 37-47 [facility] Laboratory - Chemistry and C hemistry - challengeOrdered By: Sydney Delong on 01-04-2023 CO2 [Moles/Vol] 30.0 mmol/L 21.0-32.0 [facility] Urea nitrogen/Creatinine [Mass ratio] 21.3 mg/mg 10-20 [facility] Laboratory - Hematology and Cell countsOrdered By: Sydney Delong on 01-04-2023 Erythrocyte distribution width (RBC) [Entitic vol] 53.3 fL 35.1-43.9 [facility] Erythrocyte distribution width (RBC) [Ratio] 15.5 % 11.6-14.6 [facility] Immature granulocytes/100 WBC (Bld) 0.200 % 0.0-0.9 [facility] Comment on above: IG% - Immature Granu locytes (promyelocytes, myelocytes and metamyelocytes) > 1% indicates that a LEFT SHIFT is Present. MCH (RBC) [Entitic mass] 31.0 pg 27.0-32.0 [facility] Nucleated RBC/100 WBC (Bld) [Ratio] 0 % 0-5 [facility] MCHC Auto (RBC) [Mass/Vol]Or dered By: Sydney Delong on 01-04-2023 MCHC (RBC) [Mass/Vol] 32.9 g/dL 32-36 [facility] No Panel InformationOrdered By: Sydney Delong on 01-04-2023 Estimated GFR (MDRD) Amer 88 mL/min >60 [facility] Comment on above: GFR Calc Estimated GFR (MDRD) Non-Af Amer 73 mL/min >60 [facility] Comment on above: Non- GFR Calc Platelets bldOrdered By: Pete Delong on 01-04-2023 Platelets (Bld) [#/Vol] 254 10*3/uL 150-450 [facility] Serum or plasma calcium tatiana urement (mass/volume)Ordered By: Sydney Delong on 01-04-2023 Calcium [Mass/Vol] 9.2 mg/dL 8.5-10.1 [facility] Serum or plasma creatinine m easurement (mass/volume)Ordered By: Sydney Delong on 01-04-2023 Creatinine [Mass/Vol] 0.80 mg/dL 0.55-1.02 [facility] Comment on above: The validity of the calculated GFR & GFRAA in patients over 70 years has not been determined. Clinical correlation is essential. Serum or plasma urea nitroge n measurement (mass/volume)Ordered By: Sydney Delong on 01-04-2023 Urea nitrogen [Mass/Vol] 17 mg/dL 7-18 [facility] Thin prep Papanicolaou smear with manual screeningOrdered By: Sydney Delong on 01-04-2023 Thin prep Papanicolaou smear with manual screening 5 5-15 [facility] BASIC METABOLIC PANELon 07 BUN/CREATININE RATIO NOT APPLICABLE Normal 6-22 [facility] Comment on above: Performed By: #### [id number] #### [facility] of [address], [address] [place] [address] R D Engineer: Shay Ruiz MD Calcium [Mass/Vol] 9.0 mg/dL Normal 8.6-10.4 [facility] Comment on above: Performed By: #### [id number] #### [facility] [place] [address] R D Engineer: Shay Ruiz MD Chloride [Moles/Vol] 101 mmol/L Normal 98-110 [facility] Comment on above: Performed By: #### [id number] #### [facility] [place] [address] R D Engineer: Shay Ruiz MD CO2 [Moles/Vol] 31 mmol/L Normal 20-32 [facility] Comment on above: Performed By: #### [id number] #### [facility] [place] [address] R D Engineer: Shay Ruiz MD Creatinine [Mass/Vol] 0.95 mg/dL Normal 0.60-0.[address] [facility] Comment on above: Performed By: #### [id number] #### [facility] of [place] [address] R D Engineer: Shay Ruiz MD GFR/1.73 sq M.predicted among non-blacks MDRD (S/P/Bld) [Vol rate/Area] 59 mL/min/{1.73_m2} Low > OR = 60 [facility] Comment on above: Result Comment: The eGFR is based on the CKD-EPI 2020 equation. To calculate the new eGFR from a previous Creatinine or Cystatin C result, go to https://www.kidney.org/professionals/ kdoqi/gfr%[email or web address] Performed By: #### [id number] #### [facility] [address], [address] [place] [address] R D Engineer: Shay Ruiz MD Glucose [Mass/Vol] 90 mg/dL Normal 65-99 [facility] Comment on above: Result Comment: Fasting reference interval Performed By: #### [id number] #### [facility] [address], [address] [place] [address] R D Engineer: Shay Ruiz MD Potassium [Moles/Vol] 4.2 mmol/L Normal 3.5-5.[address] [facility] Comment on above: Performed By: #### [id number] #### [facility] [place] [address] R D Engineer: Shay Ruiz MD Sodium [Moles/Vol] 137 mmol/L Normal 135-146 [facility] Comment on above: Performed By: #### [id number] #### [facility] [place] [address] R D Engineer: Shay Ruiz MD Urea nitrogen [Mass/Vol] 19 mg/dL Normal 7-25 [facility] Comment on above: Performed By: #### [id number] #### [facility] [place] [address] R D Engineer: Shay Ruiz MD Laboratory - Hematology and Cell countson 03-26-2022 Hemoglobin (Bld) [Mass/Vol] 10 g/dL Abnormal 11.5 - 14.2 g/dL [facility] No Panel Informationon 03-26 90 mg/dL Normal 65 - 99 mg/dL [facility] 19 mg/dL Normal 7 - 25 mg/dL [facility], [facility].; [facility] 0.95 mg/dL Normal 0.60 - 0.95 mg/dL [facility], [facility].; [facility], [facility]. 59 Abnormal [facility].; [facility], [facility]. NOT APPLICABLE Normal 6 - 22 [facility], [facility].; [facility] 137 mmol/L Normal 135 - 146 mmol/L [facility], [facility].; [facility], [facility]. 4.2 mmol/L Normal 3.5 - 5.3 mmol/L [facility], [facility].; [facility], [facility]. 101 mmol/L Normal 98 - 110 mmol/L [facility], [facility].; [facility], [facility]. 31 mmol/L Normal 20 - 32 mmol/L [facility].; [facility], [facility]. 9.0 mg/dL Normal 8.6 - 10.4 mg/dL [facility], [facility].; [place] [employer] [facility], [facility] Automated blood hematocrit ( percentage)on 03-16-2022 Hematocrit (Bld) [Volume fraction] 26.1 % Abnormal 34 - 44 % [facility].; [facility], [facility]. Basophil percentageon 2021 Chloride [Moles/Vol] 106 mmol/L 98-107 [facility] Work Phone: Glucose [Mass/Vol] 94 mg/dL 74-106 [facility] Work Phone: Potassium [Moles/Vol] 3.7 mmol/L 3.5-5.1 [facility] Work Phone: Sodium [Moles/Vol] 142 mmol/L 136-145 [facility] Work Phone: WBC (Bld) [#/Vol] 4.1 10*3/uL 4.4-11.0 [facility] Work Phone: Blood erythrocytes count (nu mber/volume)on 03-16-2022 RBC (Bld) [#/Vol] 2.69 10*6/uL Abnormal 4.10 - 5.3 0 10*6/uL [facility].; [place] [facility], [facility]. Blood hemoglobin measurement (mass/volume)on 03-16-2022 Hemoglobin (Bld) [Mass/Vol] 8.3 g/dL 12.0-15.0 [facility] Work Phone: Blood platelet mean volumeon 03-16-2022 Platelet mean volume (Bld) [Entitic vol] 10.1 fL Normal 6.6 - 10.5 fL [facility]. Determination of erythrocyte mean corpuscular volume (MCV)on 03-16-2022 MCV (RBC) [Entitic vol] 97.0 fL Normal 80 - 99 fL [facility].; [facility]. Laboratory - Chemistry and C hemistry - challengeon 03-16-2022 CO2 [Moles/Vol] 31.0 mmol/L 21.0-32.0 [facility] Work Phone: Urea nitrogen/Creatinine [Mass ratio] 21.8 mg/mg 10-20 [facility] Work Phone: Laboratory - Hematology and Cell countson 03-16-2022 Basophils/100 WBC (Bld) - Normal 0.0 - 2.0 % [facility].; [facility]. Eosinophils/100 WBC (Bld) - Normal 0.0 - 6.0 % [facility].; [facility] Lymphocytes/100 WBC (Bld) - Normal 20.0 - 45.0 % [facility].; [facility]. Monocytes/100 WBC (Bld) - Normal [facility].; [facility], [facility]. Neutrophils/100 WBC (Bld) - Normal 46 - 76 % [facility] [facility].; [place] [employer] Platelets (Bld) [#/Vol] 446 10*9{Cells}/L Normal 150 - 450 10*9{Cells}/L [facility] [employer].; [place] [employer] WBC (Bld) [#/Vol] 4.1 10*9{Cells}/L Abnormal 4.5 - 10.8 10*9{Cells}/L [facility] [employer].; [place] [employer] [facility]. Erythrocyte distribution width (RBC) [Entitic vol] 55.9 fL 35.1-43.9 [facility] Work Phone: Erythrocyte distribution width (RBC) [Ratio] 15.9 % Abnormal 12.0 - 15.6 % [facility].; [facility]. MCH (RBC) [Entitic mass] 30.9 pg Normal 27 - 33 pg [facility].; [facility]. MCHC [Mass/volume] by Automa angelica counton 03-16-2022 MCHC (RBC) [Mass/Vol] 31.8 g/dL Abnormal 32 - 36 g/dL [facility].; [facility]. No Panel Informationon 03-16 - Normal 2.0 - 13.0 % [facility]; [facility] 8.3 g/dL Abnormal 11.5 - 14.2 g/dL [facility].; [facility]. Estimated GFR (MDRD) Amer 71 mL/min >60 [facility] Work Phone: Comment on above: GFR Calc Estimated GFR (MDRD) Non-Af Amer 59 mL/min >60 [facility] Work Phone: Comment on above: Non- GFR Calc Platelets bldon 03-16-2022 Platelets (Bld) [#/Vol] 446 10*3/uL 150-450 [facility] Work Phone: Serum or plasma calcium tatiana urement (mass/volume)on 03-16-2022 Calcium [Mass/Vol] 8.6 mg/dL 8.5-10.1 [facility] Work Phone: Serum or plasma creatinine m easurement (mass/volume)on 03-16-2022 Creatinine [Mass/Vol] 0.96 mg/dL 0.55-1.02 [facility] Work Phone: Comment on above: The validity of the calculated GFR & GFRAA in patients over 70 years has not been determined. Clinical correlation is essential. Serum or plasma urea nitroge n measurement (mass/volume)on 03-16-2022 Urea nitrogen [Mass/Vol] 21 mg/dL 7-18 [facility] Work Phone: Thin prep Papanicolaou smear with manual screeningon 03-16-2022 Thin prep Papanicolaou smear with manual screening 5 5-15 [facility] Work Phone: Absolute lymphocyte counton 03-12-2022 Lymphocytes Auto (Unsp spec) [#/Vol] 0.77 10*3/uL 0.83-4.51 [facility] Work Phone: Basophil percentageon 2021 Basophils/100 WBC (Bld) 0.4 % 0-1 [facility] Work Phone: Chloride [Moles/Vol] 104 mmol/L 98-107 [facility] Work Phone: Eosinophils/100 WBC (Bld) 1.4 % 0-5 [facility] Work Phone: Glucose [Mass/Vol] 90 mg/dL 74-106 [facility] Work Phone: Neutrophils (Bld) [#/Vol] 3.6 10*3/uL 2.0-7.7 [facility] Work Phone: Neutrophils/100 WBC (Bld) 73.7 % 47-70 [facility] Work Phone: Potassium [Moles/Vol] 3.2 mmol/L 3.5-5.1 [facility] Work Phone: Sodium [Moles/Vol] 140 mmol/L 136-145 [facility] Work Phone: WBC (Bld) [#/Vol] 4.9 10*3/uL 4.4-11.0 [facility] Work Phone: Blood erythrocytes count (nu mber/volume)on 03-12-2022 RBC (Bld) [#/Vol] 2.62 10*6/uL 4.2-5.4 [facility] Work Phone: Blood hemoglobin measurement (mass/volume)on 03-12-2022 Hemoglobin (Bld) [Mass/Vol] 8.2 g/dL 12.0-15.0 [facility] Work Phone: Blood lymphocytes/100 leukoc yteson 03-12-2022 Lymphocytes/100 WBC (Bld) 15.7 % 19-41 [facility] Work Phone: Blood monocytes/100 leukocyt eson 03-12-2022 Monocytes/100 WBC (Bld) 8.2 % 0-10 [facility] Work Phone: Blood platelet mean volumeon 03-12-2022 Platelet mean volume (Bld) [Entitic vol] 9.6 fL 6.2-12.0 [facility] Work Phone: Determination of erythrocyte mean corpuscular volume (MCV)on 03-12-2022 MCV (RBC) [Entitic vol] 95.4 fL 81-99 [facility] Work Phone: Hematocrit Auto (Bld) [Volum e fraction]on 03-12-2022 Hematocrit (Bld) [Volume fraction] 25.0 % 37-47 [facility] Work Phone: Laboratory - Chemistry and C hemistry - challengeon 03-12-2022 CO2 [Moles/Vol] 32.0 mmol/L 21.0-32.0 [facility] Work Phone: Urea nitrogen/Creatinine [Mass ratio] 22.7 mg/mg 10-20 [facility] Work Phone: Laboratory - Hematology and Cell countson 03-12-2022 Erythrocyte distribution width (RBC) [Entitic vol] 54.3 fL 35.1-43.9 [facility] Work Phone: Erythrocyte distribution width (RBC) [Ratio] 15.8 % 11.6-14.6 [facility] Work Phone: Immature granulocytes/100 WBC (Bld) 0.600 % 0.0-0.9 [facility] Work Phone: Comment on above: IG% - Immature Granu locytes (promyelocytes, myelocytes and metamyelocytes) > 1% indicates that a LEFT SHIFT is Present. MCH (RBC) [Entitic mass] 31.3 pg 27.0-32.0 [facility] Work Phone: Nucleated RBC/100 WBC (Bld) [Ratio] 0 % 0-5 [facility] Work Phone: MCHC Auto (RBC) [Mass/Vol]on 03-12-2022 MCHC (RBC) [Mass/Vol] 32.8 g/dL 32-36 [facility] Work Phone: No Panel Informationon 03-12 Estimated GFR (MDRD) Amer 75 mL/min >60 [facility] Work Phone: Comment on above: GFR Calc Estimated GFR (MDRD) Non-Af Amer 62 mL/min >60 [facility] Work Phone: Comment on above: Non- GFR Calc Platelets bldon 03-12-2022 Platelets (Bld) [#/Vol] 536 10*3/uL 150-450 [facility] Work Phone: Serum or plasma calcium tatiana urement (mass/volume)on 03-12-2022 Calcium [Mass/Vol] 8.3 mg/dL 8.5-10.1 [facility] Work Phone: Serum or plasma creatinine m easurement (mass/volume)on 03-12-2022 Creatinine [Mass/Vol] 0.92 mg/dL 0.55-1.02 [facility] Work Phone: Comment on above: The validity of the calculated GFR & GFRAA in patients over 70 years has not been determined. Clinical correlation is essential. Serum or plasma urea nitroge n measurement (mass/volume)on 03-12-2022 Urea nitrogen [Mass/Vol] 21 mg/dL 7-18 [facility] Work Phone: Thin prep Papanicolaou smear with manual screeningon 03-12-2022 Thin prep Papanicolaou smear with manual screening 4 5-15 [facility] Work Phone: Absolute lymphocyte counton 03-09-2022 Lymphocytes Auto (Unsp spec) [#/Vol] 0.83 10*3/uL 0.83-4.51 [facility] Work Phone: Basophil percentageon 2021 Basophils/100 WBC (Bld) 0.4 % 0-1 [facility] Work Phone: Chloride [Moles/Vol] 106 mmol/L 98-107 [facility] Work Phone: Eosinophils/100 WBC (Bld) 1.6 % 0-5 [facility] Work Phone: Glucose [Mass/Vol] 94 mg/dL 74-106 [facility] Work Phone: Neutrophils (Bld) [#/Vol] 3.7 10*3/uL 2.0-7.7 [facility] Work Phone: Neutrophils/100 WBC (Bld) 72.2 % 47-70 [facility] Work Phone: Potassium [Moles/Vol] 3.5 mmol/L 3.5-5.1 [facility] Work Phone: Sodium [Moles/Vol] 140 mmol/L 136-145 [facility] Work Phone: WBC (Bld) [#/Vol] 5.1 10*3/uL 4.4-11.0 [facility] Work Phone: Blood erythrocytes count (nu mber/volume)on 03-09-2022 RBC (Bld) [#/Vol] 2.51 10*6/uL 4.2-5.4 [facility] Work Phone: Blood hemoglobin measurement (mass/volume)on 03-09-2022 Hemoglobin (Bld) [Mass/Vol] 7.9 g/dL 12.0-15.0 [facility] Work Phone: Blood lymphocytes/100 leukoc yteson 03-09-2022 Lymphocytes/100 WBC (Bld) 16.3 % 19-41 [facility] Work Phone: Blood monocytes/100 leukocyt eson 03-09-2022 Monocytes/100 WBC (Bld) 8.5 % 0-10 [facility] Work Phone: Blood platelet mean volumeon 03-09-2022 Platelet mean volume (Bld) [Entitic vol] 9.4 fL 6.2-12.0 [facility] Work Phone: Determination of erythrocyte mean corpuscular volume (MCV)on 03-09-2022 MCV (RBC) [Entitic vol] 96.4 fL 81-99 [facility] Work Phone: Comment on above: Delta: 90.8 on 03/05 Hematocrit Auto (Bld) [Volum e fraction]on 03-09-2022 Hematocrit (Bld) [Volume fraction] 24.2 % 37-47 [facility] Work Phone: Laboratory - Chemistry and C hemistry - challengeon 03-09-2022 CO2 [Moles/Vol] 29.0 mmol/L 21.0-32.0 [facility] Work Phone: Urea nitrogen/Creatinine [Mass ratio] 21.9 mg/mg 10-20 [facility] Work Phone: Laboratory - Hematology and Cell countson 03-09-2022 Erythrocyte distribution width (RBC) [Entitic vol] 53.7 fL 35.1-43.9 [facility] Work Phone: Erythrocyte distribution width (RBC) [Ratio] 15.4 % 11.6-14.6 [facility] Work Phone: Immature granulocytes/100 WBC (Bld) 1.000 % 0.0-0.9 [facility] Work Phone: Comment on above: IG% - Immature Granu locytes (promyelocytes, myelocytes and metamyelocytes) > 1% indicates that a LEFT SHIFT is Present. MCH (RBC) [Entitic mass] 31.5 pg 27.0-32.0 [facility] Work Phone: Nucleated RBC/100 WBC (Bld) [Ratio] 0 % 0-5 [facility] Work Phone: MCHC Auto (RBC) [Mass/Vol]on 03-09-2022 MCHC (RBC) [Mass/Vol] 32.6 g/dL 32-36 [facility] Work Phone: No Panel Informationon 03-09 Estimated GFR (MDRD) Amer 71 mL/min >60 [facility] Work Phone: Comment on above: GFR Calc Estimated GFR (MDRD) Non-Af Amer 59 mL/min >60 [facility] Work Phone: Comment on above: Non- GFR Calc Platelets bldon 03-09-2022 Platelets (Bld) [#/Vol] 490 10*3/uL 150-450 [facility] Work Phone: Serum or plasma calcium tatiana urement (mass/volume)on 03-09-2022 Calcium [Mass/Vol] 8.2 mg/dL 8.5-10.1 [facility] Work Phone: Serum or plasma creatinine m easurement (mass/volume)on 03-09-2022 Creatinine [Mass/Vol] 0.96 mg/dL 0.55-1.02 [facility] Work Phone: Comment on above: The validity of the calculated GFR & GFRAA in patients over 70 years has not been determined. Clinical correlation is essential. Serum or plasma urea nitroge n measurement (mass/volume)on 03-09-2022 Urea nitrogen [Mass/Vol] 21 mg/dL 7-18 [facility] Work Phone: Thin prep Papanicolaou smear with manual screeningon 03-09-2022 Thin prep Papanicolaou smear with manual screening 5 5-15 [facility] Work Phone: Absolute lymphocyte counton 03-05-2022 Lymphocytes Auto (Unsp spec) [#/Vol] 0.68 10*3/uL 0.83-4.51 [facility] Work Phone: Basophil percentageon 2021 Basophils/100 WBC (Bld) 0.4 % 0-1 [facility] Work Phone: Eosinophils/100 WBC (Bld) 4.7 % 0-5 [facility] Work Phone: Neutrophils (Bld) [#/Vol] 3.9 10*3/uL 2.0-7.7 [facility] Work Phone: Neutrophils/100 WBC (Bld) 70.1 % 47-70 [facility] Work Phone: WBC (Bld) [#/Vol] 5.6 10*3/uL 4.4-11.0 [facility] Work Phone: Blood erythrocytes count (nu mber/volume)on 03-05-2022 RBC (Bld) [#/Vol] 2.62 10*6/uL 4.2-5.4 [facility] Work Phone: Blood hemoglobin measurement (mass/volume)on 03-05-2022 Hemoglobin (Bld) [Mass/Vol] 8.1 g/dL 12.0-15.0 [facility] Work Phone: Blood lymphocytes/100 leukoc yteson 03-05-2022 Lymphocytes/100 WBC (Bld) 12.2 % 19-41 [facility] Work Phone: Blood monocytes/100 leukocyt eson 03-05-2022 Monocytes/100 WBC (Bld) 10.8 % 0-10 [facility] Work Phone: Blood platelet mean volumeon 03-05-2022 Platelet mean volume (Bld) [Entitic vol] 9.6 fL 6.2-12.0 [facility] Work Phone: Determination of erythrocyte mean corpuscular volume (MCV)on 03-05-2022 MCV (RBC) [Entitic vol] 90.8 fL 81-99 [facility] Work Phone: Hematocrit Auto (Bld) [Volum e fraction]on 03-05-2022 Hematocrit (Bld) [Volume fraction] 23.8 % 37-47 [facility] Work Phone: Laboratory - Hematology and Cell countson 03-05-2022 Erythrocyte distribution width (RBC) [Entitic vol] 48.4 fL 35.1-43.9 [facility] Work Phone: Erythrocyte distribution width (RBC) [Ratio] 14.7 % 11.6-14.6 [facility] Work Phone: Immature granulocytes/100 WBC (Bld) 1.800 % 0.0-0.9 [facility] Work Phone: Comment on above: IG% - Immature Granu locytes (promyelocytes, myelocytes and metamyelocytes) > 1% indicates that a LEFT SHIFT is Present. MCH (RBC) [Entitic mass] 30.9 pg 27.0-32.0 [facility] Work Phone: Nucleated RBC/100 WBC (Bld) [Ratio] 0 % 0-5 [facility] Work Phone: MCHC Auto (RBC) [Mass/Vol]on 03-05-2022 MCHC (RBC) [Mass/Vol] 34.0 g/dL 32-36 [facility] Work Phone: Platelets bldon 03-05-2022 Platelets (Bld) [#/Vol] 307 10*3/uL 150-450 [facility] Work Phone: Basophil percentageon 2021 Chloride [Moles/Vol] 104 mmol/L 98-[address] [facility] [address] [facility] Work Phone: Glucose [Mass/Vol] 107 mg/dL 74-106 [facility] Work Phone: Comment on above: Fasting Glucose resu lt from 100 to 125 mg/dL suggests IMPAIRED HOMEOSTASIS per A.D.A. criteria. Potassium [Moles/Vol] 3.5 mmol/L 3.5-5.1 [facility] Work Phone: Sodium [Moles/Vol] 135 mmol/L 136-145 [facility] Work Phone: Hemoglobin in reticulocytes (mass per reticulocyte)on 03-04-2022 Hemoglobin (Reticulocytes) [Entitic mass] 32.5 pg 30-35 [facility] Work Phone: Iron measurement (mass/mass) on 03-04-2022 Iron (Unsp spec) [Mass/Mass] 29 ug/dL 50-170 [facility] Work Phone: Laboratory - Chemistry and C hemistry - challengeon 03-04-2022 CO2 [Moles/Vol] 26.0 mmol/L 21.0-32.0 [facility] Work Phone: Transferrin [Mass/Vol] 124 mg/dL 149-313 [facility] Work Phone: Comment on above: Performed at: [facility] [place] [id number] Director: Torin Yun PhD, Phone: [phone] Urea nitrogen/Creatinine [Mass ratio] 25.0 mg/mg 10-20 [facility] Work Phone: No Panel Informationon 03-04 Estimated Creatinine Clearance Calc 35.12 ml/min [facility] Work Phone: Estimated GFR (MDRD) Amer 71 mL/min >60 [facility] Work Phone: Comment on above: GFR Calc Estimated GFR (MDRD) Non-Af Amer 59 mL/min >60 [facility] Work Phone: Comment on above: Non- GFR Calc Immature Reticulocyte Fraction 19.30 % 3.00-15.90 [facility] Work Phone: Reticulocyte Count 2.54 % 0.5-1.5 [facility] Work Phone: Total Iron Binding Capacity 205 ug/dL 250-450 [facility] Work Phone: Serum or plasma calcium tatiana urement (mass/volume)on 03-04-2022 Calcium [Mass/Vol] 8.1 mg/dL 8.5-10.1 [facility] Work Phone: Serum or plasma creatinine m easurement (mass/volume)on 03-04-2022 Creatinine [Mass/Vol] 0.96 mg/dL 0.55-1.02 [facility] Work Phone: Comment on above: The validity of the calculated GFR & GFRAA in patients over 70 years has not been determined. Clinical correlation is essential. Serum or plasma ferritin melodie surement (mass/volume)on 03-04-2022 Ferritin [Mass/Vol] 434 ng/mL 8-252 [facility] Work Phone: Serum or plasma iron saturat ion measurement (mass fraction)on 03-04-2022 Iron saturation [Mass fraction] 14.1 % 15.0-55.0 [facility] Work Phone: Serum or plasma urea nitroge n measurement (mass/volume)on 03-04-2022 Urea nitrogen [Mass/Vol] 24 mg/dL 7-18 [facility] Work Phone: Thin prep Papanicolaou smear with manual screeningon 03-04-2022 Thin prep Papanicolaou smear with manual screening 5 5-15 [facility] Work Phone: Thin prep Papanicolaou smear with manual screening 229 U/L 84-246 [facility] Work Phone: Laboratory - Chemistry and C hemistry - challengeon 03-01-2022 TSH Qn 1.45 mU/mL Normal 0.35 - 5.5 mU/mL [facility] Sodium (U) [Moles/Vol] 45 mmol/L Not Establ. [facility] Work Phone: No Panel Informationon 03-01 Thyroid Stimulating Hormone (TSH) 1.45 uIU/mL 0.358-3.74 [facility] Work Phone: Serum or plasma vancomycin m easurement (mass/volume)on 03-01-2022 Vancomycin [Mass/Vol] 9.3 ug/mL 0.0-15.0 [facility] Work Phone: Comment on above: VANCOMYCIN STANDARD DRUG THERAPY: CRITICAL VALUE IS > 15.0 mg/L VANCOMYCIN HIGH INTENSITY THERAPY: CRITICAL VALUE IS > 20.0 mg/L PLEASE CONTACT PHARMACY SERVICES (#[id number]) FOR INTERPRETATIONOF RESULTS. THIS RESULT DOES NOT REPRESENT A PEAK OR TROUGHLEVEL FOR THIS DRUG. Thin prep Papanicolaou smear with manual screeningon 03-01-2022 Thin prep Papanicolaou smear with manual screening 268 mOsm/KG 280-301 [facility] Work Phone: Urine osmolality measurement on 03-01-2022 Osmolality (U) [Osmolality] 538 mOsm/KG >50 [facility] Work Phone: Comment on above: Normal Urine Referen ce Ranges Random: 50 - 1200 mOsm/kg H20 depending on fluid intake Random: >850 mOsm/kg after 12 hour fluid restriction 24 hour: ~300 - 900 mOsm/kg H2O Laboratory - Hematology and Cell countson 02-27-2022 Anisocytosis Ql (Bld) 1+ [facility] Work Phone: Absolute lymphocyte counton 02-26-2022 Lymphocytes Auto (Unsp spec) [#/Vol] 1.63 10*3/uL 0.83-4.51 [facility] Work Phone: Basophil percentageon 2021 Bilirubin [Mass/Vol] 0.40 mg/dL Normal 0.3 - 1 .0 mg/dL [facility] Comment on above: For patients on eltr ombopag therapy, use of Dimension Bath TBIL is not recommended. Protein [Mass/Vol] 6.3 g/dL Abnormal 6.4 - 8.2 g/dL [facility] Basophils/100 WBC (Bld) 0.5 % 0-1 [facility] Work Phone: Bilirubin [Mass/Vol] 0.30 mg/dL 0.20-1.00 [facility] Work Phone: Comment on above: For patients on eltr ombopag therapy, use of Dimension Bath TBIL is not recommended. Chloride [Moles/Vol] 95 mmol/L 98-107 [facility] Work Phone: Eosinophils/100 WBC (Bld) 2.1 % 0-5 [facility] Work Phone: Glucose [Mass/Vol] 110 mg/dL 74-106 [facility] Work Phone: Comment on above: Fasting Glucose resu lt from 100 to 125 mg/dL suggests IMPAIRED HOMEOSTASIS per A.D.A. criteria. Neutrophils (Bld) [#/Vol] 4.1 10*3/uL 2.0-7.7 [facility] Work Phone: Neutrophils/100 WBC (Bld) 62.7 % 47-70 [facility] Work Phone: Potassium [Moles/Vol] 3.6 mmol/L 3.5-5.1 [facility] Work Phone: Protein [Mass/Vol] 6.6 g/dL 6.4-8.2 [facility] Work Phone: Sodium [Moles/Vol] 130 mmol/L 136-145 [facility] Work Phone: WBC (Bld) [#/Vol] 6.6 10*3/uL 4.4-11.0 [facility] Work Phone: Blood erythrocytes count (nu mber/volume)on 02-26-2022 RBC (Bld) [#/Vol] 3.36 10*6/uL 4.2-5.4 [facility] Work Phone: Blood hemoglobin measurement (mass/volume)on 02-26-2022 Hemoglobin (Bld) [Mass/Vol] 9.9 g/dL 12.0-15.0 [facility] Work Phone: Blood lymphocytes/100 leukoc yteson 02-26-2022 Lymphocytes/100 WBC (Bld) 24.8 % 19-41 [facility] Work Phone: Blood manual differential co mment interpretation (narrative result)on 02-26-2022 Manual differential comment Gurmeet (Bld) [Interp] SCANNED [facility] Work Phone: Blood monocytes/100 leukocyt eson 02-26-2022 Monocytes/100 WBC (Bld) 9.1 % 0-10 [facility] Work Phone: Blood platelet mean volumeon 02-26-2022 Platelet mean volume (Bld) [Entitic vol] 10.1 fL 6.2-12.0 [facility] Work Phone: Determination of erythrocyte mean corpuscular volume (MCV)on 02-26-2022 MCV (RBC) [Entitic vol] 90.5 fL 81-99 [facility] Work Phone: Hematocrit Auto (Bld) [Volum e fraction]on 02-26-2022 Hematocrit (Bld) [Volume fraction] 30.4 % 37-47 [facility] Work Phone: Laboratory - Chemistry and C hemistry - challengeon 02-26-2022 ALT [Catalytic activity/Vol] 16 mmol/L Normal 12 - 49 mmol/L [facility]; [employer]. AST [Catalytic activity/Vol] 21 U/L Normal 15 - 37 U/L [place] [employer]. Calcium [Mass/Vol] 8.2 mg/dL Abnormal 8.4 - 10. 6 mg/dL [place] [facility] [employer]. Chloride [Moles/Vol] 96 mmol/L Abnormal 98 - 11 0 mmol/L [place] [facility] [employer]. CO2 [Moles/Vol] 28.0 {omkar/L} Normal 22.0 - 32.0 {omkar/L} [place] [employer].; [employer]. Creatinine [Mass/Vol] 0.79 mg/dL Normal 0.6 - 1.4 mg/dL [place] [facility].; [employer]. Glucose [Mass/Vol] 131 mg/dL Abnormal 75 - 105 mg/dL [employer].; [facility] Potassium [Moles/Vol] 4.0 mmol/L Normal 3.50 - 5.00 meq/L [facility]; [facility] Sodium [Moles/Vol] 128 mmol/L Abnormal 136 - 145 mmol/L [facility]; [facility] Urea nitrogen [Mass/Vol] 13 mg/dL Normal 7.0 - 20.0 mg/dL [facility]; [facility] Urea nitrogen/Creatinine [Mass ratio] 16.5 mg/mg Normal 0 - 30 [facility]; [facility] ALP [Catalytic activity/Vol] 59 U/L Normal 50 - 136 U/L [facility]; [facility] ALT [Catalytic activity/Vol] 16 U/L 56 [facility] Work Phone: Globulin (S) [Mass/Vol] 3.3 g/dL Normal 1.5 - 3.8 g/dL [facility]; [facility] ALP [Catalytic activity/Vol] 59 U/L 45-117 [facility] Work Phone: ALT [Catalytic activity/Vol] 18 U/L 13-56 [facility] Work Phone: CO2 [Moles/Vol] 26.0 mmol/L 21.0-32.0 [facility] Work Phone: Globulin (S) [Mass/Vol] 3.5 g/dL 2.2-4.2 [facility] Work Phone: Urea nitrogen/Creatinine [Mass ratio] 18.4 mg/mg 10-20 [facility] Work Phone: Laboratory - Hematology and Cell countson 02-26-2022 Erythrocyte distribution width (RBC) [Entitic vol] 42.5 fL 35.1-43.9 [facility] Work Phone: Erythrocyte distribution width (RBC) [Ratio] 12.9 % 11.6-14.6 [facility] Work Phone: Immature granulocytes/100 WBC (Bld) 0.800 % 0.0-0.9 [facility] Work Phone: Comment on above: IG% - Immature Granu locytes (promyelocytes, myelocytes and metamyelocytes) > 1% indicates that a LEFT SHIFT is Present. MCH (RBC) [Entitic mass] 29.5 pg 27.0-32.0 [facility] Work Phone: Nucleated RBC/100 WBC (Bld) [Ratio] 0 % 0-5 [facility] Work Phone: MCHC Auto (RBC) [Mass/Vol]on 02-26-2022 MCHC (RBC) [Mass/Vol] 32.6 g/dL 32-36 [facility] Work Phone: No Panel Informationon 02-26 89 Normal [employer]; [employer] 74 Normal [employer]; [employer]. Estimated Creatinine Clearance Calc 40.53 ml/min [facility] Work Phone: Estimated GFR (MDRD) Amer 80 mL/min >60 [facility] Work Phone: Comment on above: GFR Calc Estimated GFR (MDRD) Non-Af Amer 66 mL/min >60 [facility] Work Phone: Comment on above: Non- GFR Calc Platelets bldon 02-26-2022 Platelets (Bld) [#/Vol] 242 10*3/uL 150-450 [facility] Work Phone: Serum or plasma albumin tatiana urement (mass/volume)on 02-26-2022 Albumin [Mass/Vol] 3.0 g/dL Abnormal 3.5 - 5.0 g/dL [employer]; [employer]. Albumin [Mass/Vol] 3.1 g/dL 3.2-5.0 [facility] Work Phone: Serum or plasma albumin/glob ulin mass ratioon 02-26-2022 Albumin/Globulin [Mass ratio] 0.9 {ratio} Normal [email or web address] Albumin/Globulin [Mass ratio] 0.9 {ratio} 0.9-2.4 [facility] Work Phone: Serum or plasma calcium tatiana urement (mass/volume)on 02-26-2022 Calcium [Mass/Vol] 8.6 mg/dL 8.5-10.1 [facility] Work Phone: Serum or plasma creatinine m easurement (mass/volume)on 02-26-2022 Creatinine [Mass/Vol] 0.87 mg/dL 0.55-1.02 [facility] Work Phone: Comment on above: The validity of the calculated GFR & GFRAA in patients over 70 years has not been determined. Clinical correlation is essential. Serum or plasma urea nitroge n measurement (mass/volume)on 02-26-2022 Urea nitrogen [Mass/Vol] 16 mg/dL 7-18 [facility] Work Phone: Thin prep Papanicolaou smear with manual screeningon 02-26-2022 Thin prep Papanicolaou smear with manual screening 21 U/L 1537 [facility] Work Phone: Thin prep Papanicolaou smear with manual screening 20 U/L 1537 [facility] Work Phone: Thin prep Papanicolaou smear with manual screening 9 5-15 [facility] Work Phone: No Panel Informationon 12-09 4.5 K/mm3 Normal 4.4 - 11.0 K/mm3 [employer], [employer] 3.90 {M/mm3} Abnormal 4.2 - 5.4 {M/mm3} [employer], [employer], [employer] 11.6 g/dL Abnormal 12.0 - 15.0 g/dL [employer], [employer].; [employer], Inc[employer] 37.1 Normal 37 - 47 [employer], [employer].; [employer], Inc[employer] 95.1 fL Normal 81 - 99 fL [employer], [employer].; [facility] [employer] 29.7 pg Normal 27.0 - 32.0 pg [employer], [employer].; [employer], [employer] 31.3 g/dL Abnormal 32 - 36 g/dL [facility], [employer].; [employer], [employer] 14.0 Normal 11.6 - 14.6 [employer], [employer].; [employer], [employer] 49.4 fL Abnormal 35.1 - 43.9 fL [employer], [employer].; [employer], [employer] 236 K/mm3 Normal 150 - 450 K/mm3 [employer], [employer].; [employer], [employer] 10.9 fL Normal 6.2 - 12.0 fL [facility] [employer], Inc.; [employer], [employer] 64.2 Normal 47 - 70 [place] [employer], [employer].; [employer], [employer] 23.1 Normal 19 - 41 [employer], [employer].; [employer], [employer] 9.0 Normal 0 - 10 [employer], [employer].; [employer], [employer] 2.9 Normal 0 - 5 [place] [employer], [employer].; [employer], [employer] 0.4 Normal 0 - 1 [employer], [employer].; [employer], [employer] 0.400 Normal 0.0 - 0.9 [employer], [employer].; [employer], [employer] 2.9 {X10_3/uL} Normal 2.0 - 7.7 {X10_3/uL} [employer], [employer].; [employer], [employer] 1.03 {X10_3/uL} Normal 0.83 - 4.51 {X10_3/uL} [employer], [employer].; [employer], [employer] 0 Normal 0 - 5 [employer], [employer].; [employer], [employer] 87 mg/dL Normal 74 - 106 mg/dL [employer], [employer].; [employer], [employer] 13 mg/dL Normal 7 - 18 mg/dL [facility] [employer], [employer].; [employer], [employer] 0.82 mg/dL Normal 0.55 - 1.02 mg/dL [employer], [employer].; [employer], [employer] 71 mL/min Normal [place] [employer], [employer].; [employer], [employer] 86 mL/min Normal [place] [employer], [employer].; [employer], [employer] 15.8 {RATIO} Normal 10 - 20 {RATIO} [employer], [employer].; [employer], [employer] 7.4 g/dL Normal 6.4 - 8.2 g/dL [facility], [facility].; [employer], [employer] 3.5 g/dL Normal 3.2 - 5.0 g/dL [place] [employer], [employer].; [employer], [employer] 3.9 g/dL Normal 2.2 - 4.2 g/dL [place] [employer], [employer].; [employer], [employer] 0.9 {RATIO} Normal 0.9 - 2.4 {RATIO} [employer], [employer].; [employer], [employer] 8.8 mg/dL Normal 8.5 - 10.1 mg/dL [place] [employer], [employer].; [employer], [employer] 20 U/L Normal 15 - 37 U/L [place] [employer], [employer].; [employer], [employer] 69 U/L Normal 45 - 117 U/L [email or web address], [facility].; [employer], [employer] 18 U/L Normal 13 - 56 U/L [employer], [employer].; [employer], [employer] 0.50 mg/dL Normal 0.20 - 1.00 mg/dL [employer], [employer].; [employer], [employer] 135 mmol/L Abnormal 136 - 145 mmol/L [place] [employer], [employer].; [employer], [employer] 3.6 mmol/L Normal 3.5 - 5.1 mmol/L [place] [employer], [employer].; [employer], [employer] 100 mmol/L Normal 98 - 107 mmol/L [place] [employer], [employer].; [employer], [employer] 31.0 mmol/L Normal 21.0 - 32.0 mmol/L [place] [employer], [employer].; [employer], [employer] 4 Abnormal 5 - 15 [place] [employer], [employer].; [employer], [employer] 206 mg/dL Abnormal [place] [employer], [employer].; [employer] Work Phone: 62 mg/dL Normal [place] [employer], [employer].; [employer] Work Phone: 91 mg/dL Normal [place] [employer], [employer].; [employer] Work Phone: 103 mg/dL Normal 0 - 130 mg/dL [facility], [facility].; [employer] Work Phone: 12 mg/dL Normal 5 - 40 mg/dL [facility], [employer].; [place] [employer] Work Phone: 1.31 {uIU/mL} Normal 0.358 - 3.74 {uIU/mL} [place] [employer], [employer].; [employer] Work Phone: No Panel Informationon 03-06 93 mg/dL Normal 74 - 106 mg/dL [place] [employer].; [place] [employer], [employer] 14 mg/dL Normal 7 - 18 mg/dL [facility] [employer], [employer].; [employer], [employer] 0.93 mg/dL Normal 0.55 - 1.02 mg/dL [place] [employer], [employer].; [employer], [employer] 61 mL/min Normal [place] [employer], [employer].; [place] [employer], [employer] 74 mL/min Normal [place] [employer], [employer].; [employer], [employer] 15.0 {RATIO} Normal 10 - 20 {RATIO} [employer], [employer].; [employer], [employer] 8.8 mg/dL Normal 8.5 - 10.1 mg/dL [place] [employer], [employer].; [employer], [employer] 131 mmol/L Abnormal 136 - 145 mmol/L [place] [employer], [employer].; [employer], [employer] 4.0 mmol/L Normal 3.5 - 5.1 mmol/L [place] [employer], [employer].; [employer], [employer] 95 mmol/L Abnormal 98 - 107 mmol/L [place] [employer], [employer].; [employer], [employer] 30.0 mmol/L Normal 21.0 - 32.0 mmol/L [place] [employer], [employer].; [employer], [employer] 6 Normal 5 - 15 [facility] [place] [employer] 1.9 pg/mL Abnormal 2.18 - 3.98 pg/mL [facility] [place] [employer] 0.84 {uIU/mL} Normal 0.358 - 3.74 {uIU/mL} [place] [facility], [facility].; [employer] 1.56 ng/dL Abnormal 0.76 - 1.46 ng/dL [facility], [facility].; [place] [employer], [employer] IP. No Panel Informationon 12-25 91 mg/dL Normal 74 - 106 mg/dL [place] [facility].; [place] [employer], [employer] 15 mg/dL Normal 7 - 18 mg/dL [facility], [facility].; [place] [employer], [employer] 0.79 mg/dL Normal 0.55 - 1.02 mg/dL [place] [facility], [facility].; [employer] 75 mL/min Normal [place] [employer], [employer].; [place] [employer], [employer] 90 mL/min Normal [place] [employer], [employer].; [employer], [employer] 19.1 {RATIO} Normal 10 - 20 {RATIO} [employer], [employer].; [employer], [employer] 8.7 mg/dL Normal 8.5 - 10.1 mg/dL [place] [employer], [employer].; [employer], [employer] 135 mmol/L Abnormal 136 - 145 mmol/L [place] [employer], [employer].; [employer] 4.1 mmol/L Normal 3.5 - 5.1 mmol/L [place] [employer], [employer].; [employer], [employer] 101 mmol/L Normal 98 - 107 mmol/L [place] [employer], [employer].; [employer], [employer] 30.0 mmol/L Normal 21.0 - 32.0 mmol/L [place] [employer], [employer].; [employer], [employer] 4 Abnormal 5 - [address] [place] [address] [facility], [facility].; [employer], [employer] 2.1 pg/mL Abnormal 2.18 - 3.98 pg/mL [place] [employer], [employer].; [employer], [employer] 0.47 {uIU/mL} Normal 0.358 - 3.74 {uIU/mL} [place] [employer] [employer].; [employer] 1.63 ng/dL Abnormal 0.76 - 1.46 ng/dL [place] [employer], [employer].; [place] [employer], [facility]. No Panel Informationon 11-26 5.6 Normal 3.8 - 10.8 [place] [employer], [employer].; [employer], [employer] 3.99 {Million/uL} Normal 3.80 - 5.1 0 {Million/uL} [place] [employer].; [employer], [employer] 12.2 g/dL Normal 11.7 - 15.5 g/dL [place] [employer], [employer].; [employer], [employer] 36.4 % Normal 35.0 - 45.0 % [place] [employer], [employer] 91.2 fL Normal 80.0 - 100.0 fL [place] [employer], [employer].; [employer], [employer] 30.6 pg Normal 27.0 - 33.0 pg [place] [employer], [employer].; [employer], [employer] 33.5 g/dL Normal 32.0 - 36.0 g/dL [place] [employer], [employer].; [employer], [employer] 12.6 % Normal 11.0 - 15.0 % [place] [employer], [employer].; [employer], [employer] 264 Normal 140 - 400 [place] [employer], [employer].; [employer], [employer] 10.7 fL Normal 7.5 - 12.5 fL [employer], [employer].; [employer], [employer] 4172 {cells/uL} Normal 1500 - 7800 {cells/uL} [employer], [employer].; [employer], [employer] 874 {cells/uL} Normal 850 - 3900 {cells/uL} [employer], [employer].; [employer], [employer] 543 {cells/uL} Normal 200 - 950 {cells/uL} [employer], [employer].; [employer], [employer] 0 {cells/uL} Abnormal 15 - 500 {cells/uL} [employer], [employer].; [employer] 11 {cells/uL} Normal 0 - 200 {cells/uL} [employer], [employer].; [employer], [employer] 74.5 % Normal [facility], [facility].; [facility] 15.6 % Normal [facility], [facility].; [place] [facility], [facility] 9.7 % Normal [facility].; [place] [facility], [facility] 0.0 % Normal [facility].; [place] [employer] 0.2 % Normal [facility], [facility].; [place] [employer] 2.2 ng/dL Abnormal 0.8 - 1.8 ng/dL [facility], [facility].; [place] [employer] 1.27 {mIU/L} Normal 0.40 - 4.50 {mIU/L} [facility].; [place] [employer] 2.2 pg/mL Abnormal 2.3 - 4.2 pg/mL [facility].; [place] [employer], [employer] 104 mg/dL Abnormal 65 - 99 mg/dL [facility], [facility].; [place] [employer], [employer] 10 mg/dL Normal 7 - 25 mg/dL [facility], [facility].; [place] [employer], [employer] 0.70 mg/dL Normal 0.60 - 0.88 mg/dL [facility], [facility].; [place] [employer] 81 Normal [facility], [facility].; [employer], [employer] 94 Normal [facility] [employer], [employer] NOT APPLICABLE Normal 6 - 22 [facility], [facility].; [employer], [employer] 129 mmol/L Abnormal 135 - 146 mmol/L [facility].; [place] [employer], [employer] 4.0 mmol/L Normal 3.5 - 5.3 mmol/L [facility].; [place] [employer], [employer] 93 mmol/L Abnormal 98 - 110 mmol/L [facility].; [place] [employer], [employer] 27 mmol/L Normal 20 - 32 mmol/L [facility].; [place] [employer], [employer] 9.7 mg/dL Normal 8.6 - 10.4 mg/dL [facility].; [place] [employer], [employer] 7.1 g/dL Normal 6.1 - 8.1 g/dL [place] [employer], [employer].; [employer] 4.2 g/dL Normal 3.6 - 5.1 g/dL [place] [employer], [employer].; [employer] 2.9 Normal 1.9 - 3.7 [place] [employer], [employer].; [employer], [employer] 1.4 Normal 1.0 - 2.5 [place] [employer], [employer].; [employer], [employer] 0.5 mg/dL Normal 0.2 - 1.2 mg/dL [place] [employer], [employer].; [employer], [employer] 54 U/L Normal 37 - 153 U/L [facility], Inc.; [employer], [employer] 20 U/L Normal 10 - 35 U/L [place] [employer], [employer].; [employer], [employer] 13 U/L Normal 6 - 29 U/L [place] [employer], [employer].; [place] [employer], [employer] No Panel Informationon 03-14 88 mg/dL Normal 74 - 106 mg/dL [place] [employer], [employer].; [employer] 11 mg/dL Normal 7 - 18 mg/dL [place] [employer], [employer].; [employer], [employer] 0.89 mg/dL Normal 0.55 - 1.02 mg/dL [place] [employer], [employer].; [employer] 65 mL/min Normal [place] [employer], [employer].; [employer], [employer] 79 mL/min Normal [place] [employer], [employer].; [employer], [employer] 12.4 {RATIO} Normal 10 - 20 {RATIO} [employer], [employer].; [employer], [employer] 8.8 mg/dL Normal 8.5 - 10.1 mg/dL [employer], [employer].; [employer], [employer] 127 mmol/L Abnormal 136 - 145 mmol/L [employer], [employer].; [employer] 3.7 mmol/L Normal 3.5 - 5.1 mmol/L [employer], [employer].; [employer], [employer] 94 mmol/L Abnormal 98 - 107 mmol/L [employer], [employer].; [employer], [employer] 28.0 mmol/L Normal 21.0 - 32.0 mmol/L [facility], [facility].; [place] [employer]. 5 Normal 5 - 15 [facility].; [place] [employer], [employer]. Laboratory - Chemistry and C hemistry - challengeon 11-07-2018 Calcium [Mass/Vol] 9.7 mg/dL Normal 8.6 - 10. 4 mg/dL [facility].; [employer], [facility]. Chloride [Moles/Vol] 100 mmol/L Normal 98 - 11 0 mmol/L [facility].; [employer], [facility]. CO2 [Moles/Vol] 28 mmol/L Normal 20 - 32 mmol/L [facility].; [employer], [employer]. Creatinine [Mass/Vol] 0.68 mg/dL Normal 0.60 - 0.93 mg/dL [facility], [facility].; [employer], [employer]. GFR/1.73 sq M.predicted among blacks MDRD (S/P/Bld) [Vol rate/Area] 96 {ML/MIN/1.73M2} Normal [facility].; [employer] [employer], [facility]. GFR/1.73 sq M.predicted MDRD (S/P/Bld) [Vol rate/Area] 83 {ML/MIN/1.73M2} Normal [facility] [facility], [facility].; [employer] Glucose [Mass/Vol] 87 mg/dL Normal 65 - 99 mg/dL [facility].; [employer] [employer] Potassium [Moles/Vol] 4.4 mmol/L Normal 3.5 - 5.3 mmol/L [facility].; [employer] Sodium [Moles/Vol] 135 mmol/L Normal 135 - 146 mmol/L [employer], [facility].; [employer], [employer]. Urea nitrogen [Mass/Vol] 15 mg/dL Normal 7 - 25 mg/dL [employer], [facility].; [employer] Urea nitrogen/Creatinine [Mass ratio] 22.5 mg/mg Abnormal 6 - [address] [facility].; [employer] Laboratory - Chemistry and C hemistry - challengeon 05-04-2018 25-hydroxyvitamin D3 [Mass/Vol] 33 ng/mL Normal 30 - 100 ng/mL [facility], [facility].; [facility], [facility] Calcium [Mass/Vol] 9.7 mg/dL Normal 8.6 - 10. 4 mg/dL [facility], [facility].; [facility], [facility] Chloride [Moles/Vol] 95 mmol/L Abnormal 98 - 11 0 mmol/L [facility].; [facility], [facility] Cholesterol [Mass/Vol] 224 mg/dL Abnormal [facility]; [facility], [facility] Cholesterol in HDL [Mass/Vol] 89 mg/dL Normal [facility], [facility]; [facility], [facility] Cholesterol in LDL [Mass/Vol] 118 mg/dL Abnormal 0 - 100 mg/dL [facility].; [facility], [facility] Cholesterol non HDL [Mass/Vol] 135 mg/dL Abnormal [facility]; [facility], [facility] Cholesterol.total/Chol esterol in HDL [Mass ratio] 2.5 {ratio} Normal [facility]; [facility], [facility] CO2 [Moles/Vol] 24 mmol/L Normal 20 - 32 mmol/L [facility]; [place] [facility], [facility]. Creatinine [Mass/Vol] 0.85 mg/dL Normal 0.60 - 0.93 mg/dL [facility], [facility].; [place] [facility], [facility]. GFR/1.73 sq M.predicted among blacks MDRD (S/P/Bld) [Vol rate/Area] 76 {ML/MIN/1.73M2} Normal [facility], [facility].; [facility], [facility]. GFR/1.73 sq M.predicted MDRD (S/P/Bld) [Vol rate/Area] 65 {ML/MIN/1.73M2} Normal [facility], [facility].; [facility], [employer] Glucose [Mass/Vol] 88 mg/dL Normal 65 - 99 mg/dL [facility].; [place] [employer] [facility], [facility] Potassium [Moles/Vol] 4.3 mmol/L Normal 3.5 - 5.3 mmol/L [facility].; [place] [facility]. Sodium [Moles/Vol] 131 mmol/L Abnormal 135 - 146 mmol/L [facility].; [place] [facility] Triglyceride [Mass/Vol] 73 mg/dL Normal [facility]; [place] [facility] TSH Qn 0.58 m[IU]/L Normal 0.40 - 4.50 {mIU/L} [facility].; [place] [employer] [facility] Urea nitrogen [Mass/Vol] 13 mg/dL Normal 7 - 25 mg/dL [facility]; [employer] [employer] [facility] Urea nitrogen/Creatinine [Mass ratio] 15.1 mg/mg Normal 6 - [address] [facility]; [place] [facility] Laboratory - Hematology and Cell countson 05-04-2018 Basophils (Bld) [#/Vol] 20 {Cells}/uL Normal 0 - 200 {Cells}/uL [facility].; [employer] Basophils/100 WBC (Bld) 0 % Normal 0 - 1 % [facility].; [employer] Eosinophils (Bld) [#/Vol] 40 {Cells}/uL Normal 15 - 500 {Cells}/uL [facility].; [employer]. Eosinophils/100 WBC (Bld) 1 % Normal 0 - 4 % [facility].; [employer] Erythrocyte distribution width (RBC) [Ratio] 14.6 % Normal 11.0 - 15.0 % [facility] Boulevard[facility].; [place] [employer] [facility] Hematocrit (Bld) [Volume fraction] 37.9 % Normal 35.0 - 45.0 % [employer] [facility].; [employer] Hemoglobin (Bld) [Mass/Vol] 12.9 g/dL Normal 11.7 - 15.5 g/dL [facility] [facility].; [place] [employer] [facility]. Lymphocytes (Bld) [#/Vol] 740 {Cells}/uL Abnormal 850 - 3900 {Cells}/uL [employer].; [employer]. Lymphocytes/100 WBC (Bld) 19 % Normal 12 - 47 % [facility].; [employer]. MCH (RBC) [Entitic mass] 31.5 pg Normal 27.0 - 33.0 PG [facility].; [employer] [employer], [employer] MCHC (RBC) [Mass/Vol] 34.0 g/dL Normal 32.0 - 36.0 g/dL [facility], [facility].; [employer], [employer] MCV (RBC) [Entitic vol] 92.7 fL Normal 80.0 - 100.0 fL [facility] [employer].; [employer], [employer] Monocytes (Bld) [#/Vol] 380 {Cells}/uL Normal 200 - 950 {Cells}/uL [facility] [employer].; [employer], [employer]. Monocytes/100 WBC (Bld) 10 % Normal 4 - 12 % [employer].; [employer], [employer]. Neutrophils (Bld) [#/Vol] 2770 {Cells}/uL Normal 1500 - 7800 {Cells}/uL [facility] [employer].; [employer], [employer]. Neutrophils/100 WBC (Bld) 70 % Normal 40 - 75 % [employer].; [employer], [employer] Platelet mean volume (Bld) [Entitic vol] 9.9 fL Normal 7.5 - 12.5 fL [facility].; [employer], [employer]. Platelets (Bld) [#/Vol] 247 10*3/uL Normal 140 - 400 10*3/uL [facility] [employer].; [employer], [employer] RBC (Bld) [#/Vol] 4.09 10*6/uL Normal 3.80 - 5.1 0 10*6/uL [employer].; [employer], [employer] WBC (Bld) [#/Vol] 4.0 10*3/uL Normal 3.8 - 10.8 10*3/uL [employer], [employer].; [employer] Laboratoryon 03-06-2017 Lower GI hemoglobin IA Ql (Stl) Not detected Normal [employer] [employer].; [employer]. Laboratory - Chemistry and C hemistry - challengeon 02-24-2017 Calcium [Mass/Vol] 9.2 mg/dL Normal 8.6 - 10. 4 mg/dL [facility], [facility].; [place] [facility], [facility]. Chloride [Moles/Vol] 101 mmol/L Normal 98 - 11 0 mmol/L [facility], [facility].; [employer] Cholesterol [Mass/Vol] 208 mg/dL Abnormal 125 - 200 mg/dL [facility], [facility].; [facility], [facility]. Cholesterol in HDL [Mass/Vol] 92 mg/dL Normal [facility], [facility].; [employer] Cholesterol in LDL [Mass/Vol] 104 mg/dL Normal [facility], [facility].; [place] [facility], [employer]. Cholesterol non HDL [Mass/Vol] 116 mg/dL Normal [facility], [facility].; [place] [facility], [facility]. Cholesterol.total/Chol esterol in HDL [Mass ratio] 2.3 {ratio} Normal [facility], [facility].; [place] [facility], [facility]. CO2 [Moles/Vol] 24 mmol/L Normal 20 - 31 mmol/L [facility], [facility].; [employer] Creatinine [Mass/Vol] 0.70 mg/dL Normal 0.60 - 0.93 mg/dL [facility], [facility].; [employer] GFR/1.73 sq M.predicted among blacks MDRD (S/P/Bld) [Vol rate/Area] 96 {ML/MIN/1.73M2} Normal [facility], [facility].; [place] [facility], [facility]. GFR/1.73 sq M.predicted MDRD (S/P/Bld) [Vol rate/Area] 83 {ML/MIN/1.73M2} Normal [facility], [facility].; [employer] Glucose [Mass/Vol] 88 mg/dL Normal 65 - 99 mg/dL [facility], [facility].; [employer] Potassium [Moles/Vol] 4.0 mmol/L Normal 3.5 - 5.3 mmol/L [facility], [facility].; [employer] Sodium [Moles/Vol] 138 mmol/L Normal 135 - 146 mmol/L [facility], [facility].; [facility] [employer] Triglyceride [Mass/Vol] 58 mg/dL Normal [facility].; [employer]. TSH Qn 0.43 m[IU]/L Normal 0.40 - 4.50 {mIU/L} [facility].; [employer] Urea nitrogen [Mass/Vol] 15 mg/dL Normal 7 - 25 mg/dL [facility].; [employer] Urea nitrogen/Creatinine [Mass ratio] 21.1 mg/mg Normal 6 - 22 [employer] [employer].; [employer] Laboratory - Hematology and Cell countson 02-24-2017 Basophils (Bld) [#/Vol] 10 {Cells}/uL Normal 0 - 200 {Cells}/uL [employer].; [employer] Basophils/100 WBC (Bld) 0 % Normal 0 - 1 % [employer].; [employer] Eosinophils (Bld) [#/Vol] 70 {Cells}/uL Normal 15 - 500 {Cells}/uL [employer].; [employer] Eosinophils/100 WBC (Bld) 1 % Normal 0 - 4 % [employer].; [employer] Erythrocyte distribution width (RBC) [Ratio] 15.2 % Abnormal 11.0 - 15.0 % [employer] [employer] [facility].; [employer] Hematocrit (Bld) [Volume fraction] 37.7 % Normal 35.0 - 45.0 % [employer].; [employer] Hemoglobin (Bld) [Mass/Vol] 12.3 g/dL Normal 11.7 - 15.5 g/dL [employer].; [employer]. Lymphocytes (Bld) [#/Vol] 1420 {Cells}/uL Normal 850 - 3900 {Cells}/uL [employer].; [employer], [employer] Lymphocytes/100 WBC (Bld) 27 % Normal 12 - 47 % [employer].; [employer]. MCH (RBC) [Entitic mass] 30.3 pg Normal 27.0 - 33.0 PG [employer].; [employer]. MCHC (RBC) [Mass/Vol] 32.7 g/dL Normal 32.0 - 36.0 g/dL [facility].; [employer] [employer], [employer] MCV (RBC) [Entitic vol] 92.6 fL Normal 80.0 - 100.0 fL [facility].; [employer], [employer]. Monocytes (Bld) [#/Vol] 430 {Cells}/uL Normal 200 - 950 {Cells}/uL [facility].; [employer] Monocytes/100 WBC (Bld) 8 % Normal 4 - 12 % [facility] [employer].; [employer], [employer]. Neutrophils (Bld) [#/Vol] 3270 {Cells}/uL Normal 1500 - 7800 {Cells}/uL [facility].; [employer], [employer]. Neutrophils/100 WBC (Bld) 63 % Normal 40 - 75 % [facility] [employer].; [employer], [employer]. Platelet mean volume (Bld) [Entitic vol] 10.1 fL Normal 7.5 - 12.5 fL [facility].; [employer], [employer]. Platelets (Bld) [#/Vol] 235 10*3/uL Normal 140 - 400 10*3/uL [facility].; [employer] RBC (Bld) [#/Vol] 4.07 10*6/uL Normal 3.80 - 5.1 0 10*6/uL [facility].; [employer] [employer], [employer] WBC (Bld) [#/Vol] 5.2 10*3/uL Normal 3.8 - 10.8 10*3/uL [employer].; [employer], [employer] Laboratory - Chemistry and C hemistry - challengeon 05-07-2016 Calcium [Mass/Vol] 9.3 mg/dL Normal 8.6 - 10. 4 mg/dL [facility].; [employer], [employer]. Chloride [Moles/Vol] 98 mmol/L Normal 98 - 11 0 mmol/L [facility].; [employer], [employer] CO2 [Moles/Vol] 29 mmol/L Normal 20 - 31 mmol/L [facility].; [facility], [facility] Creatinine [Mass/Vol] 0.90 mg/dL Normal 0.60 - 0.93 mg/dL [facility].; [facility], [facility]. Free T4 [Mass/Vol] 1.8 ng/dL Normal 0.8 - 1.8 ng/dL [facility].; [facility], [facility]. GFR/1.73 sq M.predicted among blacks MDRD (S/P/Bld) [Vol rate/Area] 71 {ML/MIN/1.73M2} Normal [facility]; [facility], [facility] GFR/1.73 sq M.predicted MDRD (S/P/Bld) [Vol rate/Area] 62 {ML/MIN/1.73M2} Normal [facility], [facility].; [facility], [facility] Glucose [Mass/Vol] 95 mg/dL Normal 65 - 99 mg/dL [facility].; [facility], [facility] Potassium [Moles/Vol] 4.0 mmol/L Normal 3.5 - 5.3 mmol/L [facility].; [facility], [facility]. Sodium [Moles/Vol] 135 mmol/L Normal 135 - 146 mmol/L [facility], [facility].; [facility], [facility]. TSH Qn 1.56 m[IU]/L Normal 0.40 - 4.50 {mIU/L} [facility].; [facility], [facility]. Urea nitrogen [Mass/Vol] 17 mg/dL Normal 7 - 25 mg/dL [facility].; [facility], [facility] Urea nitrogen/Creatinine [Mass ratio] 19.1 mg/mg Normal 6 - 22 [facility]; [facility], [facility]. Laboratory - Hematology and Cell countson 05-07-2016 Basophils (Bld) [#/Vol] 20 {Cells}/uL Normal 0 - 200 {Cells}/uL [facility].; [facility], [facility] Basophils/100 WBC (Bld) 0 % Normal 0 - 1 % [facility]; [facility], [employer] Eosinophils (Bld) [#/Vol] 110 {Cells}/uL Normal 15 - 500 {Cells}/uL [facility].; [employer] [employer] [facility]. Eosinophils/100 WBC (Bld) 2 % Normal 0 - 4 % [facility].; [employer], [facility]. Erythrocyte distribution width (RBC) [Ratio] 14.9 % Normal 11.0 - 15.0 % [facility].; [employer] [employer] [facility]. Hematocrit (Bld) [Volume fraction] 37.1 % Normal 35.0 - 45.0 % [place] [facility].; [employer], [employer] Hemoglobin (Bld) [Mass/Vol] 12.1 g/dL Normal 11.7 - 15.5 g/dL [facility].; [place] [facility]. Lymphocytes (Bld) [#/Vol] 1130 {Cells}/uL Normal 850 - 3900 {Cells}/uL [facility].; [employer]. Lymphocytes/100 WBC (Bld) 22 % Normal 12 - 47 % [employer] [facility].; [employer] [facility]. MCH (RBC) [Entitic mass] 30.5 pg Normal 27.0 - 33.0 PG [employer] [facility].; [employer], [facility]. MCHC (RBC) [Mass/Vol] 32.5 g/dL Normal 32.0 - 36.0 g/dL [place] [facility].; [employer], [facility]. MCV (RBC) [Entitic vol] 93.7 fL Normal 80.0 - 100.0 fL [employer] [facility].; [employer] [facility]. Monocytes (Bld) [#/Vol] 550 {Cells}/uL Normal 200 - 950 {Cells}/uL [employer].; [employer], [employer]. Monocytes/100 WBC (Bld) 11 % Normal 4 - 12 % [employer] [facility].; [employer], [facility]. Neutrophils (Bld) [#/Vol] 3310 {Cells}/uL Normal 1500 - 7800 {Cells}/uL [employer].; [employer]. Neutrophils/100 WBC (Bld) 65 % Normal 40 - 75 % [facility] [employer].; [employer]. Platelet mean volume (Bld) [Entitic vol] 9.9 fL Normal 7.5 - 11.5 fL [facility], [facility].; [employer] Platelets (Bld) [#/Vol] 229 10*3/uL Normal 140 - 400 10*3/uL [facility] [employer].; [employer] RBC (Bld) [#/Vol] 3.96 10*6/uL Normal 3.80 - 5.1 0 10*6/uL [facility] [employer].; [employer], [employer] WBC (Bld) [#/Vol] 5.1 10*3/uL Normal 3.8 - 10.8 10*3/uL [employer], [employer].; [employer], [employer] No Panel Informationon 11-07 1.71 {uIU/mL} Normal 0.358 - 3.74 {uIU/mL} [facility] [employer].; [employer] 1.65 ng/dL Abnormal 0.76 - 1.46 ng/dL [employer], [employer]. Work Phone: Laboratory - Chemistry and C hemistry - challengeon 07-03-2015 Cholesterol [Mass/Vol] 223 mg/dL Abnormal 0 - 200 mg/dL [facility].; [employer], [employer]. Cholesterol in HDL [Mass/Vol] 75 mg/dL Abnormal 40 - 60 mg/dL [employer] [employer] [facility].; [employer], [employer]. Cholesterol in LDL [Mass/Vol] 134 mg/dL Abnormal 50.0 - 130.0 mg/dL [employer].; [employer], [employer]. Cholesterol in VLDL [Mass/Vol] 14 mg/dL Normal [employer].; [employer], [employer]. Cholesterol.total/Chol esterol in HDL [Mass ratio] - Normal 0 - 5.0 [facility] [employer], [employer].; [employer] Free T4 [Mass/Vol] 1.09 ng/dL Normal [employer].; [employer], [employer]. Glucose [Mass/Vol] 78 mg/dL Normal 40 - 100 mg/dL [facility].; [place] [facility] Triglyceride [Mass/Vol] 68 mg/dL Normal 40 - 150 mg/dL [facility].; [place] [facility] TSH Qn 12.30 mU/mL Abnormal 0.35 - 5.5 mU/mL [facility]; [place] [facility] Laboratory - Hematology and Cell countson 07-03-2015 Basophils/100 WBC (Bld) - Normal 0.00 - 0.10 [facility]; [facility] Basophils/100 WBC (Bld) 0.3 % Normal 0.0 - 2.0 % [facility].; [facility], [facility] Eosinophils/100 WBC (Bld) - Normal 0.00 - 0.50 [facility]; [employer], [facility] Eosinophils/100 WBC (Bld) 3.1 % Normal 0.0 - 6.0 % [facility]; [place] [facility] Erythrocyte distribution width (RBC) [Ratio] 14.4 % Normal 12.0 - 15.6 % [place] [facility].; [employer], [employer] Hematocrit (Bld) [Volume fraction] 37.5 % Normal 34 - 44 % [place] [facility].; [employer], [facility] Lymphocytes/100 WBC (Bld) 1.03 % Normal [facility] [facility].; [employer] [employer] Lymphocytes/100 WBC (Bld) 26.5 % Normal 20.0 - 45.0 % [place] [facility].; [employer], [employer]. MCH (RBC) [Entitic mass] 30.9 pg Normal 27 - [address] [facility].; [employer], [employer]. MCHC (RBC) [Mass/Vol] 33.1 g/dL Normal 32 - 36 g/dL [facility].; [employer] MCV (RBC) [Entitic vol] 93.5 fL Normal 80 - 99 fL [employer] [employer] [facility].; [employer] Monocytes/100 WBC (Bld) - Normal [employer].; [employer]. Neutrophils/100 WBC (Bld) 57.9 % Normal 46 - 76 % [employer].; [employer]. Platelet mean volume (Bld) [Entitic vol] 11.6 fL Abnormal 6.6 - 10.5 fL [facility].; [place] [employer], [employer]. Platelets (Bld) [#/Vol] 193 10*9{Cells}/L Normal 150 - 450 10*9{Cells}/L [place] [employer].; [employer]. RBC (Bld) [#/Vol] 4.01 10*6/uL Abnormal 4.10 - 5.3 0 10*6/uL [place] [employer].; [employer], [employer]. WBC (Bld) [#/Vol] 3.9 10*9{Cells}/L Abnormal 4.5 - 10.8 10*9{Cells}/L [place] [employer].; [employer]. No Panel Informationon 07-03 2.3 10*6/uL Normal 1.5 - 7.1 10*6/uL [place] [employer].; [employer]. 11.9 % Normal 2.0 - 13.0 % [place] [facility].; [employer], [employer]. 12.4 g/dL Normal 11.5 - 14.2 g/dL [place] [employer].; [employer], [employer]. Laboratory - Chemistry and C hemistry - challengeon 05-03-2015 Calcium [Mass/Vol] 8.9 mg/dL Normal 8.4 - 10. 6 mg/dL [place] [employer].; [employer], [employer]. Chloride [Moles/Vol] 100 mmol/L Normal 98 - 11 0 mmol/L [employer].; [employer] [place], [employer]. CO2 [Moles/Vol] 27.0 {omkar/L} Normal 22.0 - 32.0 {omkar/L} [employer] [place], [employer]. Creatinine [Mass/Vol] 0.95 mg/dL Normal 0.5 - 1.2 mg/dL [employer].; [employer]. Glucose [Mass/Vol] 96 mg/dL Normal 60 - 100 mg/dL [facility].; [facility] Boulevard[facility]. Potassium [Moles/Vol] 3.8 mmol/L Normal 3.5 - 5.0 mmol/L [facility] Boulevard[facility].; [facility], [facility]. Sodium [Moles/Vol] 135 mmol/L Abnormal 136 - 145 mmol/L [facility] Boulevard[facility].; [facility], [facility] Urea nitrogen [Mass/Vol] 19 mg/dL Normal 8 - 22 mg/dL [facility] Boulevard[facility].; [place] [employer], [facility] Urea nitrogen/Creatinine [Mass ratio] 20.0 mg/mg Normal 0 - 30 [facility] Boulevard[facility].; [place] [facility] No Panel Informationon 05-03 - Normal [facility] Boulevard[facility]; [place] [employer] Laboratoryon 02-09-2015 Lower GI hemoglobin IA Ql (Stl) Not detected Normal [facility] Boulevard[facility]; [place] [employer]. Laboratory - Chemistry and C hemistry - challengeon 07-19-2014 Albumin [Mass/Vol] 3.7 g/dL Normal 3.5 - 5.0 g/dL [facility].; [place] [employer]. Albumin/Globulin [Mass ratio] 1.0 {ratio} Normal [facility] Boulevard[facility]; [place] [employer]. ALP [Catalytic activity/Vol] 59 U/L Normal 50 - 136 U/L [facility] Boulevard[facility].; [place] [facility]. ALT [Catalytic activity/Vol] 29 mmol/L Normal 12 - 49 mmol/L [facility] Boulevard[facility].; [place] [employer], [employer]. AST [Catalytic activity/Vol] 22 U/L Normal 15 - 37 U/L [facility] Boulevard[facility].; [place] [employer]. Bilirubin [Mass/Vol] 0.60 mg/dL Normal 0.3 - 1 .0 mg/dL [facility] Boulevard[facility].; [place] [employer], [employer]. Calcium [Mass/Vol] 8.7 mg/dL Normal 8.4 - 10. 6 mg/dL [facility] Boulevard[facility].; [place] [employer]. Chloride [Moles/Vol] 99 mmol/L Normal 98 - 11 0 mmol/L [facility].; [facility] Boulevard[facility]. Cholesterol [Mass/Vol] 209 mg/dL Abnormal 0 - 200 mg/dL [facility].; [facility], [facility]. Cholesterol in HDL [Mass/Vol] 76 mg/dL Abnormal 40 - 60 mg/dL [facility].; [facility], [facility]. Cholesterol in LDL [Mass/Vol] 117 mg/dL Normal 50.0 - 130.0 mg/dL [facility].; [facility] BoulevardThread[facility] Cholesterol in VLDL [Mass/Vol] 16 mg/dL Normal [facility].; [facility] Boulevard[facility]. Cholesterol.total/Chol esterol in HDL [Mass ratio] - Normal 0 - 5.0 [facility].; [facility], [facility]. CO2 [Moles/Vol] 31.0 {omkar/L} Normal 22.0 - 32.0 {omkar/L} [facility].; [facility], [facility]. Creatinine [Mass/Vol] 0.9 mg/dL Normal 0.6 - 1.4 mg/dL [facility].; [facility], [facility]. Globulin (S) [Mass/Vol] 3.8 g/dL Normal 1.5 - 3.8 g/dL [facility].; [facility], [facility]. Glucose [Mass/Vol] 85 mg/dL Normal 75 - 105 mg/dL [facility], [facility].; [facility], [facility]. Potassium [Moles/Vol] 3.8 mmol/L Normal 3.50 - 5.00 meq/L [facility].; [facility], [facility]. Protein [Mass/Vol] 7.5 g/dL Normal 6.4 - 8.2 g/dL [facility], [facility].; [facility], [facility]. Sodium [Moles/Vol] 136 mmol/L Normal 136 - 145 mmol/L [facility], [facility].; [place] [facility], [facility]. Triglyceride [Mass/Vol] 79 mg/dL Normal 40 - 150 mg/dL [facility], [facility].; [facility] BoulevardThread[facility]. TSH Qn 5.62 mU/mL Abnormal 0.35 - 5.5 mU/mL [facility] BoulevardThread[facility].; [place] [facility]. Urea nitrogen [Mass/Vol] 20 mg/dL Normal 7.0 - 20.0 mg/dL [facility] Boulevard[facility].; [facility], [facility] Urea nitrogen/Creatinine [Mass ratio] 20 mg/mg Normal 0 - 30 [facility] Boulevard[facility].; [facility], [facility] Laboratory - Hematology and Cell countson 07-19-2014 Basophils/100 WBC (Bld) - Normal 0.00 - 0.10 [facility].; [facility], [facility] Basophils/100 WBC (Bld) 0.3 % Normal 0.0 - 2.0 % [facility] Boulevard[facility].; [facility], [facility] Eosinophils/100 WBC (Bld) - Normal 0.00 - 0.50 [facility].; [facility], [facility] Eosinophils/100 WBC (Bld) 3.0 % Normal 0.0 - 6.0 % [facility] Boulevard[facility].; [place] [facility], [facility] Erythrocyte distribution width (RBC) [Ratio] 13.6 % Normal 12.0 - 15.6 % [facility] Boulevard[facility].; [place] [employer], [facility]. Hematocrit (Bld) [Volume fraction] 39.4 % Normal 34 - 44 % [facility] Boulevard[facility].; [place] [facility], [facility]. Lymphocytes/100 WBC (Bld) 1.23 % Normal [facility] Boulevard[facility]; [place] [employer], [facility] Lymphocytes/100 WBC (Bld) 33.7 % Normal 20.0 - 45.0 % [facility] Boulevard[facility].; [place] [employer], [facility]. MCH (RBC) [Entitic mass] 30.7 pg Normal 27 - 33 pg [facility] BoulevardThread[facility].; [employer], [facility]. MCHC (RBC) [Mass/Vol] 33.0 g/dL Normal 32 - 36 g/dL [facility].; [place] [facility] MCV (RBC) [Entitic vol] 93.1 fL Normal 80 - 99 fL [facility], [facility].; [place] [employer], [facility]. Monocytes/100 WBC (Bld) - Normal [facility] Boulevard[facility].; [place] [facility], [employer]. Neutrophils/100 WBC (Bld) 51.5 % Normal 46 - 76 % [place] [employer].; [employer], [employer]. Platelet mean volume (Bld) [Entitic vol] 11.5 fL Abnormal 6.6 - 10.5 fL [facility], [facility].; [place] [employer], [employer]. Platelets (Bld) [#/Vol] 230 10*9{Cells}/L Normal 150 - 450 10*9{Cells}/L [place] [employer] [facility].; [place] [employer], [employer]. RBC (Bld) [#/Vol] 4.23 10*6/uL Normal 4.10 - 5.3 0 10*6/uL [place] [employer].; [place] [employer], [employer]. WBC (Bld) [#/Vol] 3.7 10*9{Cells}/L Abnormal 4.5 - 10.8 10*9{Cells}/L [place] [employer] [facility].; [place] [employer]. No Panel Informationon 07-19 1.9 10*6/uL Normal 1.5 - 7.1 10*6/uL [place] [employer] [facility].; [employer]. 11.5 % Normal 2.0 - 13.0 % [place] [facility].; [employer], [employer]. 13.0 g/dL Normal 11.5 - 14.2 g/dL [place] [employer] [facility].; [employer], [employer]. - Normal [employer].; [employer] [place], [employer]. Laboratory - Chemistry and C hemistry - challengeon 04-27-2013 ALT [Catalytic activity/Vol] 13 U/L Normal 6 - 29 U/L [place] [employer] [facility].; [employer] [place], [employer]. Calcium [Mass/Vol] 9.3 mg/dL Normal 8.6 - 10. 4 mg/dL [place] [employer].; [employer] [place], [employer]. Chloride [Moles/Vol] 100 mmol/L Normal 98 - 11 0 mmol/L [employer], [facility].; [employer] [place], [employer]. Cholesterol [Mass/Vol] 212 mg/dL Abnormal 125 - 200 mg/dL [employer].; [employer] [place], [employer]. Cholesterol in HDL [Mass/Vol] 77 mg/dL Normal [facility].; [facility], [facility]. Cholesterol in LDL [Mass/Vol] 121 mg/dL Normal [facility].; [facility], [facility]. Cholesterol non HDL [Mass/Vol] 136 mg/dL Normal [facility], [facility].; [facility], [facility]. Cholesterol.total/Chol esterol in HDL [Mass ratio] 2.8 {ratio} Normal [facility].; [facility], [facility]. CO2 [Moles/Vol] 27 mmol/L Normal 19 - 30 mmol/L [facility].; [facility], [facility]. Creatinine [Mass/Vol] 0.78 mg/dL Normal 0.60 - 0.93 mg/dL [facility].; [facility], [facility]. GFR/1.73 sq M.predicted among blacks MDRD (S/P/Bld) [Vol rate/Area] 87 {ML/MIN/1.73M2} Normal [facility].; [facility], [facility]. GFR/1.73 sq M.predicted MDRD (S/P/Bld) [Vol rate/Area] 75 {ML/MIN/1.73M2} Normal [facility], [facility].; [facility], [facility]. Glucose [Mass/Vol] 86 mg/dL Normal 65 - 99 mg/dL [facility].; [facility], [facility]. Potassium [Moles/Vol] 4.6 mmol/L Normal 3.5 - 5.3 mmol/L [facility].; [facility], [facility]. Sodium [Moles/Vol] 137 mmol/L Normal 135 - 146 mmol/L [facility], [facility].; [facility], [facility]. Triglyceride [Mass/Vol] 72 mg/dL Normal [facility], [facility].; [facility], [facility]. Urea nitrogen [Mass/Vol] 14 mg/dL Normal 7 - 25 mg/dL [facility], [facility].; [facility], [facility]. Urea nitrogen/Creatinine [Mass ratio] 18.2 mg/mg Normal 6 - 22 [facility].; [facility], [facility]. Laboratory - Chemistry and C hemistry - challengeon 02-04-2012 Albumin [Mass/Vol] 3.6 g/dL Normal 3.5 - 5.0 g/dL [facility].; [facility] BoulevardThread[facility] Albumin/Globulin [Mass ratio] 0.9 {ratio} Normal [facility]; [facility] Boulevard[facility] ALP [Catalytic activity/Vol] 47 U/L Abnormal 50 - 136 U/L [facility].; [facility] Boulevard[facility] ALT [Catalytic activity/Vol] 23 mmol/L Normal 12 - 49 mmol/L [facility].; [facility], [facility]. AST [Catalytic activity/Vol] 22 U/L Normal 15 - 37 U/L [facility] Boulevard[facility].; [facility] BoulevardThread[facility] Bilirubin [Mass/Vol] 0.50 mg/dL Normal 0.3 - 1 .0 mg/dL [facility]; [facility] Boulevard[facility] Calcium [Mass/Vol] 8.7 mg/dL Normal 8.4 - 10. 6 mg/dL [facility]; [facility] Boulevard[facility] Chloride [Moles/Vol] 102 mmol/L Normal 98 - 11 0 mmol/L [facility].; [facility] BoulevardThread[facility] Cholesterol [Mass/Vol] 205 mg/dL Abnormal 0 - 200 mg/dL [facility] Boulevard[facility].; [facility], [facility]. Cholesterol in HDL [Mass/Vol] 69 mg/dL Abnormal 40 - 60 mg/dL [facility].; [facility] Boulevard[facility] Cholesterol in LDL [Mass/Vol] 124 mg/dL Normal 50.0 - 130.0 mg/dL [facility] Boulevard[facility].; [facility], [facility]. Cholesterol in VLDL [Mass/Vol] 12 mg/dL Normal [facility] Boulevard[facility].; [facility], [facility] CO2 [Moles/Vol] 30.0 {omkar/L} Normal 22.0 - 32.0 {omkar/L} [facility].; [place] [facility], [facility]. Creatinine [Mass/Vol] 0.9 mg/dL Normal 0.6 - 1.4 mg/dL [facility] Boulevard[facility].; [facility] BoulevardThread[facility] Globulin (S) [Mass/Vol] 3.8 g/dL Normal 1.5 - 3.8 g/dL [facility].; [facility], [facility] Glucose [Mass/Vol] 82 mg/dL Normal 75 - 105 mg/dL [facility].; [facility], [facility] Potassium [Moles/Vol] 3.7 mmol/L Normal 3.50 - 5.00 meq/L [facility].; [facility], [facility] Protein [Mass/Vol] 7.4 g/dL Normal 6.4 - 8.2 g/dL [facility].; [facility], [facility] Sodium [Moles/Vol] 140 mmol/L Normal 136 - 145 mmol/L [facility].; [facility], [facility] Triglyceride [Mass/Vol] 62 mg/dL Normal 40 - 150 mg/dL [facility], [facility].; [facility], [facility] Urea nitrogen [Mass/Vol] 18 mg/dL Normal 7.0 - 20.0 mg/dL [facility].; [facility], [facility] Urea nitrogen/Creatinine [Mass ratio] 20.0 mg/mg Normal 0 - 30 [facility] Boulevard[facility].; [facility], [facility] Laboratory - Hematology and Cell countson 02-04-2012 Basophils/100 WBC (Bld) 0.3 % Normal 0.0 - 2.0 % [facility].; [facility], [facility] Eosinophils/100 WBC (Bld) 0.40 % Normal 0.0 - 6.0 % [facility] Boulevard[facility].; [facility], [facility] Erythrocyte distribution width (RBC) [Ratio] 13.7 % Normal 12.0 - 15.6 % [facility] Boulevard[facility].; [place] [facility], [facility] Hematocrit (Bld) [Volume fraction] 37.6 % Normal 34 - 44 % [facility].; [facility], [facility] Lymphocytes/100 WBC (Bld) 29.3 % Normal 20.0 - 45.0 % [facility], [facility].; [place] [facility], [facility]. MCH (RBC) [Entitic mass] 31.5 pg Normal 27 - 33 pg [facility] Boulevard[facility].; [facility], [facility]. MCHC (RBC) [Mass/Vol] 34.1 g/dL Normal 32 - 36 g/dL [facility].; [facility]. MCV (RBC) [Entitic vol] 92.5 fL Normal 80 - 99 fL [facility].; [place] [facility]. Neutrophils/100 WBC (Bld) 59.8 % Normal 46 - 76 % [facility].; [place] [employer] [facility]. Platelet mean volume (Bld) [Entitic vol] 9.2 fL Normal 6.6 - 10.5 fL [facility].; [place] [employer], [facility]. Platelets (Bld) [#/Vol] 226 10*9{Cells}/L Normal 150 - 450 10*9{Cells}/L [facility].; [facility] [employer], [facility]. RBC (Bld) [#/Vol] 4.07 10*6/uL Abnormal 4.10 - 5.3 0 10*6/uL [facility] Boulevard[facility].; [facility] [employer] [facility]. WBC (Bld) [#/Vol] 4.2 10*9{Cells}/L Abnormal 4.5 - 10.8 10*9{Cells}/L [facility] [employer] [facility].; [place] [employer] [facility]. No Panel Informationon 02-03 2.5 10*6/uL Normal 1.5 - 7.1 10*6/uL [place] [employer] [facility].; [place] [employer], [facility]. 8.22 % Normal 2.0 - 13.0 % [facility].; [place] [employer], [facility]. 12.8 g/dL Normal 11.5 - 14.2 g/dL [place] [employer] [facility].; [place] [employer], [employer]. Laboratory - Chemistry and C hemistry - challengeon 06-29-2011 Albumin [Mass/Vol] 4.1 g/dL Normal 3.6 - 5.1 g/dL [facility] [employer] [facility].; [place] [employer], [facility]. Albumin/Globulin [Mass ratio] 1.2 {ratio} Normal 1.0 - 2.1 [place] [employer] [place] [employer]. ALP [Catalytic activity/Vol] 65 U/L Normal 33 - 130 U/L [facility], [facility].; [facility], [facility]. ALT [Catalytic activity/Vol] 13 U/L Normal 6 - 40 U/L [facility], [facility].; [facility], [facility]. AST [Catalytic activity/Vol] 17 U/L Normal 10 - 35 U/L [facility], [facility].; [facility], [facility] Bilirubin [Mass/Vol] 0.8 mg/dL Normal 0.2 - 1 .2 mg/dL [facility], [facility].; [facility], [facility]. Calcium [Mass/Vol] 9.1 mg/dL Normal 8.6 - 10. 2 mg/dL [facility], [facility].; [facility], [facility]. Chloride [Moles/Vol] 97 mmol/L Abnormal 98 - 11 0 mmol/L [facility], [facility].; [facility], [facility]. CO2 [Moles/Vol] 29 mmol/L Normal 21 - 33 mmol/L [facility], [facility].; [facility], [facility]. Creatinine [Mass/Vol] 0.70 mg/dL Normal 0.63 - 1.22 mg/dL [facility], [facility].; [facility], [facility]. GFR/1.73 sq M.predicted among blacks MDRD (S/P/Bld) [Vol rate/Area] 100 {ML/MIN/1.73M2} Normal [facility], [facility].; [facility], [facility] [facility] GFR/1.73 sq M.predicted MDRD (S/P/Bld) [Vol rate/Area] 87 {ML/MIN/1.73M2} Normal [facility], [facility].; [facility] Globulin (S) [Mass/Vol] 3.4 g/dL Normal 2.2 - 3.9 g/dL [facility], [facility].; [facility], [facility]. Glucose [Mass/Vol] 89 mg/dL Normal 65 - 99 mg/dL [facility], [facility].; [facility] Potassium [Moles/Vol] 3.5 mmol/L Normal 3.5 - 5.3 mmol/L [facility], [facility].; [facility] Protein [Mass/Vol] 7.5 g/dL Normal 6.2 - 8.3 g/dL [facility], [facility].; [place] [facility], [facility]. Sodium [Moles/Vol] 135 mmol/L Normal 135 - 146 mmol/L [facility].; [facility], [facility]. Urea nitrogen [Mass/Vol] 14 mg/dL Normal 7 - 25 mg/dL [facility], [facility].; [place] [facility], [facility] Urea nitrogen/Creatinine [Mass ratio] 19.4 mg/mg Normal 6 - 22 [facility].; [facility] Laboratory - Hematology and Cell countson 06-29-2011 Basophils (Bld) [#/Vol] 10 {Cells}/uL Normal 0 - 200 {Cells}/uL [facility].; [place] [facility], [facility]. Basophils/100 WBC (Bld) 0 % Normal 0 - 2 % [facility], [facility].; [place] [facility], [facility] Eosinophils (Bld) [#/Vol] 20 {Cells}/uL Normal 15 - 500 {Cells}/uL [facility].; [place] [employer], [facility]. Eosinophils/100 WBC (Bld) 0 % Normal 0 - 8 % [facility].; [employer] [employer], [employer]. Erythrocyte distribution width (RBC) [Ratio] 13.8 % Normal 11.0 - 15.0 % [facility], [facility].; [employer] [employer], [facility]. Hematocrit (Bld) [Volume fraction] 37.4 % Normal 35.0 - 45.0 % [facility], [facility].; [employer] [employer], [facility]. Hemoglobin (Bld) [Mass/Vol] 12.7 g/dL Normal 11.7 - 15.5 g/dL [facility].; [place] [facility], [facility]. Lymphocytes (Bld) [#/Vol] 820 {Cells}/uL Abnormal 850 - 3900 {Cells}/uL [facility].; [facility], [facility]. Lymphocytes/100 WBC (Bld) 10 % Normal 15 - 49 % [facility], [facility].; [employer] [employer], [facility]. MCH (RBC) [Entitic mass] 30.8 pg Normal 27.0 - 33.0 PG [facility].; [employer] [employer], [facility]. MCHC (RBC) [Mass/Vol] 33.9 g/dL Normal 32.0 - 36.0 g/dL [facility], [facility].; [facility], [facility]. MCV (RBC) [Entitic vol] 90.8 fL Normal 80.0 - 100.0 fL [facility], [facility].; [facility], [facility]. Monocytes (Bld) [#/Vol] 470 {Cells}/uL Normal 200 - 950 {Cells}/uL [facility].; [facility], [facility]. Monocytes/100 WBC (Bld) 6 % Normal 0 - 13 % [facility].; [facility], [facility]. Neutrophils (Bld) [#/Vol] 7100 {Cells}/uL Normal 1500 - 7800 {Cells}/uL [facility], [facility].; [employer], [employer] Neutrophils/100 WBC (Bld) 84 % Normal 38 - 80 % [facility], [facility].; [place] [facility], [facility]. Platelets (Bld) [#/Vol] 227 10*3/uL Normal 140 - 400 10*3/uL [facility].; [place] [facility], [facility]. RBC (Bld) [#/Vol] 4.12 10*6/uL Normal 3.80 - 5.1 0 10*6/uL [facility].; [place] [facility], [facility]. WBC (Bld) [#/Vol] 8.4 10*3/uL Normal 3.8 - 10.8 10*3/uL [facility], [facility].; [employer] [employer], [facility]. Laboratory - Chemistry and C hemistry - challengeon 02-21-2011 Cholesterol [Mass/Vol] 154 mg/dL Normal 0 - 200 mg/dL [facility].; [employer] [employer], [facility]. Cholesterol in HDL [Mass/Vol] 63 mg/dL Abnormal 40 - 60 mg/dL [facility].; [facility], [facility]. Cholesterol in LDL [Mass/Vol] 81 mg/dL Normal 0 - 100 mg/dL [facility], [facility].; [employer], [facility]. Cholesterol.total/Chol esterol in HDL [Mass ratio] 2.4 {ratio} Normal 0 - 5.0 [facility].; [place] [employer]. Triglyceride [Mass/Vol] 48 mg/dL Normal 0 - 150 mg/dL [facility].; [employer] [employer], [employer]. Laboratory - Chemistry and C hemistry - challengeon 02-18-2011 Calcium [Mass/Vol] 8.6 mg/dL Normal 8.4 - 10. 6 mg/dL [facility], [facility].; [place] [facility], [employer]. Chloride [Moles/Vol] 107 mmol/L Normal 98 - 11 0 mmol/L [facility].; [employer], [employer]. Cholesterol [Mass/Vol] 194 mg/dL Normal 0 - 200 mg/dL [facility], [facility].; [place] [facility], [employer]. Cholesterol in HDL [Mass/Vol] 74 mg/dL Abnormal 40 - 60 mg/dL [facility], [facility].; [employer], [employer]. Cholesterol in LDL [Mass/Vol] 108 mg/dL Abnormal 0 - 100 mg/dL [facility], [facility].; [employer], [employer]. Cholesterol in VLDL [Mass/Vol] 12 mg/dL Normal [place] [employer] [facility].; [employer]. CO2 [Moles/Vol] 25.0 {omkar/L} Normal 22.0 - 32.0 {omkar/L} [facility].; [employer], [employer]. Creatinine [Mass/Vol] 0.8 mg/dL Normal 0.5 - 1.2 mg/dL [facility], [facility].; [employer] [employer], [employer]. Glucose [Mass/Vol] 84 mg/dL Normal 60 - 100 mg/dL [facility], [facility].; [employer], [employer]. Potassium [Moles/Vol] 3.9 mmol/L Normal 3.5 - 5.0 mmol/L [facility], [facility].; [employer], [employer]. Sodium [Moles/Vol] 142 mmol/L Normal 136 - 145 mmol/L [facility], [facility].; [employer], [employer]. Triglyceride [Mass/Vol] 62 mg/dL Normal 0 - 150 mg/dL [facility], [facility].; [employer], [employer]. Urea nitrogen [Mass/Vol] 15 mg/dL Normal 8 - 22 mg/dL [facility].; [employer]. Urea nitrogen/Creatinine [Mass ratio] 18.8 mg/mg Normal 0 - 30 [employer]. Laboratory - Hematology and Cell countson 02-18-2011 Basophils/100 WBC (Bld) 0.1 % Normal 0.0 - 2.0 % [employer].; [employer], [employer]. Eosinophils/100 WBC (Bld) 1.5 % Normal 0.0 - 6.0 % [employer].; [employer] Hematocrit (Bld) [Volume fraction] 33.6 % Abnormal 34 - 44 % [employer].; [employer], [employer] Lymphocytes/100 WBC (Bld) 30.8 % Normal 20.0 - 45.0 % [employer].; [employer], [employer] MCH (RBC) [Entitic mass] 31.3 pg Normal 27 - 33 pg [employer].; [employer], [employer]. MCV (RBC) [Entitic vol] 91.0 fL Normal 80 - 99 fL [employer].; [employer]. Neutrophils/100 WBC (Bld) 58.2 % Normal 46 - 76 % [employer].; [employer], [employer]. Platelets (Bld) [#/Vol] 203 10*9{Cells}/L Normal 150 - 450 10*9{Cells}/L [employer], [employer] RBC (Bld) [#/Vol] 3.69 10*6/uL Abnormal 4.10 - 5.3 0 10*6/uL [employer].; [employer], [employer] WBC (Bld) [#/Vol] 4.7 10*9{Cells}/L Normal 4.5 - 10.8 10*9{Cells}/L [employer].; [employer], [employer] No Panel Informationon 02-18 9.4 % Normal 2.0 - 13.0 % [facility] [employer], [employer].; [employer] 11.6 g/dL Normal 11.5 - 14.2 g/dL [employer].; [employer]. Laboratory - Chemistry and C hemistry - challengeon 02-17-2011 TSH Qn 4.87 mU/mL Normal 0.35 - 5.5 mU/mL [facility].; [facility], [facility]. Bacteria identified Anaer cx Nom (Unsp spec) Anaerobic microbial culture No anaerobic bacteria isolated. [facility] Work Phone: Gram stain for investigation of transfusion reaction Microscopic observation Gram stain Nom (Unsp spec) [facility] Work Phone: Lower GI hemoglobin IA Ql (S tl) Stool Occult Blood (NOLVIA) Positive [facility] Work Phone: Vital Signs Date Time Vital Sign Value Performing Clinician Faci lity 02-05-2025 13:06-0400 Body height 157.[address] Zion Chahal MD Work Phone: [facility] 02-05-2025 13:06-0400 Body mass index (BMI) [Ratio] 23.3 kg/m2 Dr. Zion Chahal MD Work Phone: [facility] 02-05-2025 13:06-0400 Body weight 58.[address] Zion Chahal MD Work Phone: [facility] 02-05-2025 13:06-0400 Diastolic blood pressure 92 mm[Hg] Dr. Zion Chahal MD Work Phone: [facility] 02-05-2025 13:06-0400 Heart rate 65 /min Dr. Zion Chahal MD Work Phone: [facility] 02-05-2025 13:06-0400 Respiratory rate 20 /min Dr. Zion Chahal MD Work Phone: [facility] 02-05-2025 13:06-0400 Systolic blood pressure 182 mm[Hg] Dr. Zion Chahal MD Work Phone: [facility] 05-22-2024 10:58-0400 Body height 156.21 cm [facility] Work Phone: [facility].; [facility] 05-22-2024 10:58-0400 Body mass index (BMI) [Ratio] 24.54 kg/m2 Cindy Taco [employer] Work Phone: [facility] [employer].; [place] [employer]. 05-22-2024 10:58-0400 Body surface area Derived from formula 1.59 m2 Cindyvenita Talboty [employer] Work Phone: [employer] [employer].; [employer]. 05-22-2024 10:58-0400 Body weight 59.88 kg Cindy Taco [employer] Work Phone: [employer].; [employer]. 05-22-2024 10:58-0400 Diastolic blood pressure 76 mm[Hg] Cindy Talboty [employer] Work Phone: [employer].; [employer]. 05-22-2024 10:58-0400 Heart rate 55 /min Cindy España [employer] Work Phone: [place] [employer].; [employer]. 05-22-2024 10:58-0400 Systolic blood pressure 163 mm[Hg] Cindy Talboty [employer] Work Phone: [place] [employer].; [employer] [facility]. 04-10-2024 14:40-0400 Body height 156.21 cm Dilcia Gonzalez LPN [facility].; [employer] [facility]. 04-10-2024 14:40-0400 Body mass index (BMI) [Ratio] 23.79 kg/m2 Dilcia Gonzalez LPN [facility].; [employer]. 04-10-2024 14:40-0400 Body surface area Derived from formula 1.57 m2 Dilcia Gonzalez LPN [facility].; [employer]. 04-10-2024 14:40-0400 Body temperature 97.6 [degF] Dil[facility] LPN [facility].; [employer] [employer]. 04-10-2024 14:40-0400 Body weight 58.06 kg Dilcia Gonzalez LPN [facility].; [facility]. 04-10-2024 14:40-0400 Diastolic blood pressure 69 mm[Hg] Dilcia Gonzalez LPN [facility].; [facility]. 04-10-2024 14:40-0400 Heart rate 62 /min Dilcia Gonzalez LPN [facility].; [place] [facility]. 04-10-2024 14:40-0400 Inhaled oxygen concentration 21 % Dilcia Gonzalez LPN [facility].; [place] [facility]. 04-10-2024 14:40-0400 SaO2% (BldA) [Mass fraction] 95 % Dilciamaninder Gonzalez LPN [facility].; [email or web address] [facility]. 04-10-2024 14:40-0400 Systolic blood pressure 130 mm[Hg] Dilcia Gonzalez LPN [facility].; [email or web address] [facility]. 02-24-2024 14:19-0400 Body height 156.21 cm Cindy Taco [employer] Work Phone: [facility].; [employer]. 02-24-2024 14:19-0400 Body mass index (BMI) [Ratio] 24.72 kg/m2 Cindy Taco [employer] Work Phone: [facility].; [employer] [facility]. 02-24-2024 14:19-0400 Body surface area Derived from formula 1.6 m2 [employer] Work Phone: [employer].; [employer]. 02-24-2024 14:19-0400 Body weight 60.33 kg Cindy Taco [employer] Work Phone: [employer].; [employer]. 02-24-2024 14:19-0400 Diastolic blood pressure 64 mm[Hg] Cindy Taco [employer] Work Phone: [employer].; [employer]. 02-24-2024 14:19-0400 Heart rate 60 /min Cindy Taco [employer] Work Phone: [employer].; [employer]. 02-24-2024 14:19-0400 Systolic blood pressure 150 mm[Hg] Cindy Taco [employer] Work Phone: [employer].; [employer] 02-07-2024 11:01-0400 Body height 156.21 cm Cindy Taco [employer] Work Phone: [employer].; [employer]. 02-07-2024 11:01-0400 Body mass index (BMI) [Ratio] 24.35 kg/m2 Cindy Taco [employer] Work Phone: [employer].; [employer]. 02-07-2024 11:01-0400 Body surface area Derived from formula 1.59 m2 Cindy Taco [employer] Work Phone: [employer].; [employer]. 02-07-2024 11:01-0400 Body weight 59.42 kg Cindy Taco [employer] Work Phone: [employer].; [employer]. 02-07-2024 11:01-0400 Diastolic blood pressure 65 mm[Hg] Cindy Taco [employer] Work Phone: [employer].; [employer]. 02-07-2024 11:01-0400 Heart rate 69 /min Cindy Taco [employer] Work Phone: [employer].; [employer] 02-07-2024 11:01-0400 Systolic blood pressure 124 mm[Hg] Cindy Taco [employer] Work Phone: [employer].; [employer]. 06-02-2023 11:12-0400 Body height 156.21 cm Dilcia Gonzalez LPN [facility].; [facility]. 06-02-2023 11:12-0400 Body mass index (BMI) [Ratio] 23.05 kg/m2 Dilcia Gonzalez LPN [facility].; [facility]. 06-02-2023 11:12-0400 Body surface area Derived from formula 1.55 m2 Dilcia Gonzalez LPN [facility].; [facility]. 06-02-2023 11:12-0400 Body weight 56.25 kg Dilcia Gonzalez LPN [facility].; [facility] 06-02-2023 11:12-0400 Diastolic blood pressure 77 mm[Hg] Dilcia Gonzalez LPN [facility].; [facility]. 06-02-2023 11:12-0400 Heart rate 58 /min Dilcia Gonzalez LPN [facility].; [facility]. 06-02-2023 11:12-0400 Systolic blood pressure 174 mm[Hg] Dilcia Gonzalez LPN [facility].; [facility]. 05-21-2023 11:03-0400 Diastolic blood pressure 70 mm[Hg] Dr. Zion Chahal Work Phone: [facility] 05-21-2023 11:03-0400 Systolic blood pressure 150 mm[Hg] Dr. Zion Chahal Work Phone: [facility] 05-21-2023 10:39-0400 Body height 157.[address] Zion Chahal Work Phone: [facility] 05-21-2023 10:39-0400 Body mass index (BMI) [Ratio] 23.2 kg/m2 Dr. Zion Chahal Work Phone: [facility] 05-21-2023 10:39-0400 Body weight 57.[address] Zion Chahal Work Phone: [facility] 05-21-2023 10:39-0400 Heart rate 58 /min Dr. Zion Chahal Work Phone: [facility] 05-21-2023 10:39-0400 Respiratory rate 18 /min Dr. Zion Chahal Work Phone: [facility] 05-21-2023 10:39-0400 SaO2% (BldA) [Mass fraction] 97 % Dr. Zion Chahal Work Phone: [facility] 05-07-2023 08:38-0400 Body weight 57.[address] Zion Chahal Work Phone: [facility] 04-28-2023 15:42-0400 Diastolic blood pressure 75 mm[Hg] Zion Chahal MD Work Phone: [employer]; [employer] 04-28-2023 15:42-0400 Systolic blood pressure 118 mm[Hg] Zion Chahal MD Work Phone: [employer]; [employer] 04-28-2023 14:51-0400 Body height 156.21 cm Zion Chahal MD Work Phone: [employer]; [employer] 04-28-2023 14:51-0400 Body mass index (BMI) [Ratio] 23.05 kg/m2 Zion Chahal MD Work Phone: [employer]; [employer] 04-28-2023 14:51-0400 Body surface area Derived from formula 1.55 m2 Zion Chahal MD Work Phone: [employer]; [employer]. 04-28-2023 14:51-0400 Body weight 56.25 kg Zion Chahal MD Work Phone: [employer]; [employer]. 04-28-2023 14:51-0400 Diastolic blood pressure 73 mm[Hg] Zion Chahal MD Work Phone: [employer]; [employer]. 04-28-2023 14:51-0400 Systolic blood pressure 153 mm[Hg] Zion Chahal MD Work Phone: [facility]; [facility] 04-24-2023 15:15-0400 Body temperature 97.7 [degF] Dr. Zion Chahal Work Phone: [facility] 04-24-2023 15:15-0400 Diastolic blood pressure 65 mm[Hg] Dr. Zion Chahal Work Phone: 8(590)323-553947 [place] [address] 04-24-2023 15:15-0400 Heart rate 69 /min Dr. Zion Chahal Work Phone: 9(250)677-956147 [place] [address] 04-24-2023 15:15-0400 Respiratory rate 16 /min Dr. Zion Chahal Work Phone: 5(052)921-158947 [place] [address] 04-24-2023 15:15-0400 SaO2% (BldA) [Mass fraction] 97 % Dr. Zion Chahal Work Phone: 1(664)768-576847 [place] [address] 04-24-2023 15:15-0400 Systolic blood pressure 106 mm[Hg] Dr. Zion Chahal Work Phone: 8(781)708-869647 [place] [address] 04-24-2023 12:44-0400 Body height 157.[address] Zion Chahla Work Phone: 2(445)436-984247 [place] [address] 04-24-2023 12:44-0400 Body weight 54.[address] Zion Chahal Work Phone: 4(538)712-675247 [place] [address] 04-23-2023 21:13-0400 Body mass index (BMI) [Ratio] 21.9 kg/m2 Dr. Zion Chahal Work Phone: 9(919)148-769347 [place] [address] 04-07-2023 12:55-0400 Body height 157.[address] Zion Chahal Work Phone: [facility] 04-07-2023 12:55-0400 Body weight 57.[address] Zion Chahal Work Phone: 6(078)004-283647 [place] [address] 03-08-2023 16:25-0400 Body height 156.21 cm Cindy Taco [employer] Work Phone: [employer].; [employer] 03-08-2023 16:25-0400 Body mass index (BMI) [Ratio] 23.24 kg/m2 Cindy Taco [employer] Work Phone: [employer].; [employer]. 03-08-2023 16:25-0400 Body surface area Derived from formula 1.56 m2 Cindy Taco [employer] Work Phone: [employer].; [employer]. 03-08-2023 16:25-0400 Body weight 56.7 kg Cindy Taco [employer] Work Phone: [employer].; [employer]. 03-08-2023 16:25-0400 Diastolic blood pressure 83 mm[Hg] Cindy Taco [employer] Work Phone: [employer].; [employer]. 03-08-2023 16:25-0400 Heart rate 73 /min Cindy Taco [employer] Work Phone: [employer].; [employer]. 03-08-2023 16:25-0400 Systolic blood pressure 191 mm[Hg] Cindy Taco [employer] Work Phone: [employer].; [employer]. 03-05-2023 20:34-0400 Body height 157.[address] Zion Chahal Work Phone: [facility] 03-05-2023 20:34-0400 Body mass index (BMI) [Ratio] 23.5 kg/m2 Dr. Zion Chahal Work Phone: [facility] 03-05-2023 20:34-0400 Body temperature 98 [degF] Dr. Zion Chahal Work Phone: [facility] 03-05-2023 20:34-0400 Body weight 58.[address] Zion Chahal Work Phone: 3(236)785-369147 [place] [address] 03-05-2023 20:34-0400 Diastolic blood pressure 76 mm[Hg] Dr. Zion Chahal Work Phone: 0(212)662-384247 [place] [address] 03-05-2023 20:34-0400 Heart rate 69 /min Dr. Zion Chahal Work Phone: 0(214)512-304510 [address] 03-05-2023 20:34-0400 SaO2% (BldA) [Mass fraction] 94 % Dr. Zion Chahal Work Phone: 0(139)206-308174 [place] [address] 03-05-2023 20:34-0400 Systolic blood pressure 179 mm[Hg] Dr. Zion Chahal Work Phone: 1(303)710-635274 [place] [address] 03-05-2023 13:05-0400 Body mass index (BMI) [Ratio] 23.6 kg/m2 Dr. Zion Chahal Work Phone: 3(603)556-694774 [place] [address] 03-05-2023 13:05-0400 Body weight 58.[address] Zion Chahal Work Phone: 5(036)243-278374 [place] [address] 03-05-2023 13:05-0400 Diastolic blood pressure 84 mm[Hg] Dr. Zion Chahal Work Phone: 1(140)898-708410 [address] 03-05-2023 13:05-0400 Heart rate 77 /min Dr. Zion Chahal Work Phone: 6(121)536-894610 [address] 03-05-2023 13:05-0400 Respiratory rate 16 /min Dr. Zion Chahal Work Phone: 9(432)668-771210 [address] 03-05-2023 13:05-0400 SaO2% (BldA) [Mass fraction] 95 % Dr. Zion Chahal Work Phone: 8(889)583-636747 [place] [address] 03-05-2023 13:05-0400 Systolic blood pressure 170 mm[Hg] Dr. Zion Chahal Work Phone: 6(201)206-919347 [place] [address] 03-05-2023 08:41-0400 Body weight 58.[address] Zion Chahal Work Phone: 3(556)025-881647 [place] [address] 02-05-2023 14:48-0400 Body mass index (BMI) [Ratio] 22.8 kg/m2 Dr. Zion Chahal Work Phone: 9(142)820-513247 [place] [address] 02-05-2023 14:48-0400 Body temperature 97.8 [degF] Dr. Zion Chahal Work Phone: 1(606)[phone] [address] 02-05-2023 14:48-0400 Body weight 56.[address] Zion Chahal Work Phone: 9(615)[phone] [place] [address] 02-05-2023 14:48-0400 Diastolic blood pressure 80 mm[Hg] Dr. Zion Chahal Work Phone: 4(016)[phone] [address] 02-05-2023 14:48-0400 Heart rate 70 /min Dr. Zion Chahal Work Phone: 8(458)099-913210 [address] 02-05-2023 14:48-0400 Respiratory rate 14 /min Dr. Zion Chahal Work Phone: 8(347)358-889910 [address] 02-05-2023 14:48-0400 Systolic blood pressure 170 mm[Hg] Dr. Zion Chahal Work Phone: 2(811)738-652810 [address] 02-05-2023 14:45-0400 Body height 157.[address] Zion Chahal Work Phone: 7(917)[phone] [place] [address] 01-22-2023 08:00-0400 SaO2% (BldA) [Mass fraction] 93 % Dr. Zion Chahal Work Phone: 9(450)[phone] [place] [address] 01-22-2023 07:40-0400 Body temperature 97.8 [degF] Dr. Zion Chahal Work Phone: 4(285)[phone] [address] 01-22-2023 07:40-0400 Diastolic blood pressure 79 mm[Hg] Dr. Zion Chahal Work Phone: 5(384)[phone] [place] [address] 01-22-2023 07:40-0400 Heart rate 72 /min Dr. Zion Chahal Work Phone: [facility] 01-22-2023 07:40-0400 Respiratory rate 16 /min Dr. Zion Chahal Work Phone: [facility] 01-22-2023 07:40-0400 Systolic blood pressure 170 mm[Hg] Dr. Zion Chahal Work Phone: [facility] 01-21-2023 11:47-0400 Body mass index (BMI) [Ratio] 22.3 kg/m2 Dr. Zion Chahal Work Phone: [facility] 01-21-2023 11:47-0400 Body weight 55.[address] Zion Chahal Work Phone: [facility] 01-14-2023 13:48-0400 Body height 156.21 cm Zion Chahal MD Work Phone: [facility] [employer] 01-14-2023 13:48-0400 Body mass index (BMI) [Ratio] 22.86 kg/m2 Zion Chahal MD Work Phone: [employer]; [employer] 01-14-2023 13:48-0400 Body surface area Derived from formula 1.55 m2 Zion Chahal MD Work Phone: [employer]; [employer] 01-14-2023 13:48-0400 Body weight 55.79 kg Zion Chahal MD Work Phone: [employer]. 01-14-2023 13:48-0400 Diastolic blood pressure 79 mm[Hg] Zion Chahal MD Work Phone: [employer]; [employer]. 01-14-2023 13:48-0400 Heart rate 80 /min Zion Chahal MD Work Phone: [employer]; [employer]. 01-14-2023 13:48-0400 Systolic blood pressure 167 mm[Hg] Zion Chahal MD Work Phone: [facility] 01-04-2023 10:20-0400 Body height 157.[address] Zion Chahal Work Phone: [facility] 01-04-2023 10:20-0400 Diastolic blood pressure 80 mm[Hg] Dr. Zion Chahal Work Phone: [facility] 01-04-2023 10:20-0400 Systolic blood pressure 170 mm[Hg] Dr. Zion Chahal Work Phone: [facility] 07-17-2022 10:48-0500 Body mass index (BMI) [Ratio] 22.8 kg/m2 Dr. Zion Chahal Work Phone: [facility] 07-17-2022 10:48-0500 Body weight 56.[address] Zion Chahal Work Phone: [facility] 07-17-2022 10:48-0500 Heart rate 70 /min Dr. Zion Chahal Work Phone: [facility] 07-17-2022 10:48-0500 Respiratory rate 18 /min Dr. Zion Chahal Work Phone: [facility] 07-17-2022 10:48-0500 SaO2% (BldA) [Mass fraction] 96 % Dr. Zion Chahal Work Phone: [facility] 06-10-2022 11:05-0400 Body height 156.21 cm Zion Chahal MD Work Phone: [facility]; [facility] 06-10-2022 11:05-0400 Body mass index (BMI) [Ratio] 24.91 kg/m2 Zion Chahal MD Work Phone: [facility]; [facility] 06-10-2022 11:05-0400 Body surface area Derived from formula 1.6 m2 Zion Chahal MD Work Phone: [employer]; [employer] 06-10-2022 11:05-0400 Body weight 60.78 kg Zion Chahal MD Work Phone: [employer] 06-10-2022 11:05-0400 Diastolic blood pressure 77 mm[Hg] Zion Chahal MD Work Phone: [employer] 06-10-2022 11:05-0400 Heart rate 70 /min Zion Chahal MD Work Phone: [employer] 06-10-2022 11:05-0400 Systolic blood pressure 144 mm[Hg] Zion Chahal MD Work Phone: [employer] 03-26-2022 10:07-0400 Body height 156.21 cm Cindy Taco [employer] Work Phone: [employer]; [employer]. 03-26-2022 10:07-0400 Body mass index (BMI) [Ratio] 25.28 kg/m2 Cindy Taco [employer] Work Phone: [employer]; [employer]. 03-26-2022 10:07-0400 Body surface area Derived from formula 1.61 m2 Cindy Taco [employer] Work Phone: [employer] 03-26-2022 10:07-0400 Body weight 61.69 kg Cindy Taco [employer] Work Phone: [employer] 03-26-2022 10:07-0400 Diastolic blood pressure 85 mm[Hg] Cindy Taco [employer] Work Phone: [facility].; [facility] 03-26-2022 10:07-0400 Heart rate 79 /min Cindy España LPN Work Phone: [facility].; [facility] 03-26-2022 10:07-0400 Systolic blood pressure 184 mm[Hg] Cindy España LPN Work Phone: [facility].; [facility] 03-05-2022 14:37-0400 Body temperature 98.1 [degF] Dr. Zion Chahal Work Phone: [facility] Work Phone: 03-05-2022 14:37-0400 Diastolic blood pressure 49 mm[Hg] Dr. Zion Chahal Work Phone: [facility] Work Phone: 03-05-2022 14:37-0400 Heart rate 86 /min Dr. Zion Chahal Work Phone: [facility] Work Phone: 03-05-2022 14:37-0400 Respiratory rate 18 /min Dr. Zion Chahal Work Phone: [facility] Work Phone: 03-05-2022 14:37-0400 SaO2% (BldA) [Mass fraction] 98 % Dr. Zion Chahal Work Phone: [facility] Work Phone: 03-05-2022 14:37-0400 Systolic blood pressure 111 mm[Hg] Dr. Zion Chahal Work Phone: [facility] Work Phone: 03-05-2022 06:00-0400 Body weight 68.[address] Zion Chahal Work Phone: [facility] Work Phone: 03-03-2022 08:01-0400 Inhaled oxygen flow rate 97 L/min Dr. Zion Chahal Work Phone: [facility] Work Phone: 02-26-2022 07:58-0400 Body height 157.[address] Zion Chahal Work Phone: [facility] Work Phone: 02-26-2022 07:58-0400 Body mass index (BMI) [Ratio] 25.7 kg/m2 Dr. Zion Chahal Work Phone: [facility] Work Phone: 02-26-2022 02:46-0400 Diastolic blood pressure 57 mm[Hg] Dr. Zion Chahal Work Phone: [facility] Work Phone: 02-26-2022 02:46-0400 Inhaled oxygen flow rate 3 L/min Dr. Zion Chahal Work Phone: [facility] Work Phone: 02-26-2022 02:46-0400 SaO2% (BldA) [Mass fraction] 98 % Dr. Zion Chahal Work Phone: [facility] Work Phone: 02-26-2022 02:46-0400 Systolic blood pressure 118 mm[Hg] Dr. Zion Chahal Work Phone: [facility] Work Phone: 02-26-2022 01:45-0400 Body temperature 98.1 [degF] Dr. Zion Chahal Work Phone: [facility] Work Phone: 02-26-2022 01:45-0400 Heart rate 74 /min Dr. Zion Chahal Work Phone: [facility] Work Phone: 02-26-2022 01:45-0400 Respiratory rate 17 /min Dr. Zion Chahal Work Phone: [facility] Work Phone: 02-25-2022 23:49-0400 Body height 160.[address] Zion Chahal Work Phone: [facility] Work Phone: 02-25-2022 23:49-0400 Body mass index (BMI) [Ratio] 26.1 kg/m2 Dr. Zion Chahal Work Phone: [facility] Work Phone: 02-25-2022 23:49-0400 Body weight 66.[address] Zion Chahal Work Phone: [facility] Work Phone: 01-28-2022 10:30-0400 Diastolic blood pressure 70 mm[Hg] Dr. Zion Chahal Work Phone: [facility] Work Phone: 01-28-2022 10:30-0400 Systolic blood pressure 150 mm[Hg] Dr. Zion Chahal Work Phone: [facility] Work Phone: 01-28-2022 10:01-0400 Body mass index (BMI) [Ratio] 23.3 kg/m2 Dr. Zion Chahal Work Phone: [facility] Work Phone: 01-28-2022 10:01-0400 Body weight 59.[address] Zion Chahal Work Phone: [facility] Work Phone: 01-28-2022 10:01-0400 Heart rate 71 /min Dr. Zion Chahal Work Phone: [facility] Work Phone: 01-28-2022 10:01-0400 Respiratory rate 20 /min Dr. Zion Chahal Work Phone: [facility] Work Phone: 01-28-2022 10:01-0400 SaO2% (BldA) [Mass fraction] 97 % Dr. Zion Chahal Work Phone: [facility] Work Phone: 06-16-2021 11:11-0400 Body height 156.21 cm Cindy Taco [employer] Work Phone: [employer] 06-16-2021 11:11-0400 Body mass index (BMI) [Ratio] 24.17 kg/m2 Cindy Taco [employer] Work Phone: [employer] 06-16-2021 11:11-0400 Body surface area Derived from formula 1.58 m2 Cindy Taco [employer] Work Phone: [employer] 06-16-2021 11:11-0400 Body weight 58.97 kg Cindy Taco [employer] Work Phone: [employer].; [employer] 06-16-2021 11:11-0400 Diastolic blood pressure 83 mm[Hg] Cindy Taco [employer] Work Phone: [employer] 06-16-2021 11:11-0400 Heart rate 70 /min Cindy Taco [employer] Work Phone: [employer] 06-16-2021 11:11-0400 Systolic blood pressure 170 mm[Hg] Cindy Taco [employer] Work Phone: [employer]. 12-16-2020 14:19-0400 Body height 163.83 cm Cindy Taco [employer] Work Phone: [employer] 12-16-2020 14:19-0400 Body mass index (BMI) [Ratio] 21.97 kg/m2 Cindy Taco [employer] Work Phone: [employer]. 12-16-2020 14:19-0400 Body surface area Derived from formula 1.64 m2 Cindy Taco [employer] Work Phone: [employer] 12-16-2020 14:19-0400 Body weight 58.97 kg Cindy Taco [employer] Work Phone: [employer] 12-16-2020 14:19-0400 Diastolic blood pressure 82 mm[Hg] Cindy Taco [employer] Work Phone: [employer] 12-16-2020 14:19-0400 Heart rate 80 /min Cindy Taco [employer] Work Phone: [employer] 12-16-2020 14:19-0400 Systolic blood pressure 167 mm[Hg] Cindy Taco [employer] Work Phone: [employer] 07-12-2020 09:20-0500 Body height 163.83 cm Cindy Taco [employer] Work Phone: [employer] 07-12-2020 09:20-0500 Body mass index (BMI) [Ratio] 21.29 kg/m2 Cindy Taco [employer] Work Phone: [employer] 07-12-2020 09:20-0500 Body surface area Derived from formula 1.62 m2 Cindy Taco [employer] Work Phone: [employer] 07-12-2020 09:20-0500 Body weight 57.15 kg Cindy Taco [employer] Work Phone: [employer] 07-12-2020 09:20-0500 Diastolic blood pressure 76 mm[Hg] Cindy Taco [employer] Work Phone: [employer]. 07-12-2020 09:20-0500 Heart rate 79 /min Cindy Taco [employer] Work Phone: [employer]. 07-12-2020 09:20-0500 Systolic blood pressure 168 mm[Hg] Cindy Taco [employer] Work Phone: [employer].; [employer]. 04-18-2020 17:08-0400 Diastolic blood pressure 71 mm[Hg] Zion Chahal MD Work Phone: [employer] 04-18-2020 17:08-0400 Heart rate 88 /min Zion Chahal MD Work Phone: [employer]. 04-18-2020 17:08-0400 Systolic blood pressure 147 mm[Hg] Zion Chahal MD Work Phone: [employer]. 04-18-2020 16:13-0400 Body height 163.83 cm Cindy Taco [employer] Work Phone: [employer] 04-18-2020 16:13-0400 Body mass index (BMI) [Ratio] 20.62 kg/m2 Cindy Taco [employer] Work Phone: [employer]. 04-18-2020 16:13-0400 Body surface area Derived from formula 1.59 m2 Cindy Taco [employer] Work Phone: [employer]. 04-18-2020 16:13-0400 Body weight 55.34 kg Cindy Taco [employer] Work Phone: [employer] 04-18-2020 16:13-0400 Diastolic blood pressure 99 mm[Hg] Cindy Taco [employer] Work Phone: [employer]. 04-18-2020 16:13-0400 Heart rate 97 /min Cindy Taco [employer] Work Phone: [employer] 04-18-2020 16:13-0400 Systolic blood pressure 191 mm[Hg] Cindy Taco [employer] Work Phone: [employer]. 03-13-2020 15:58-0400 Body weight 57.15 kg Cindy Taco [employer] Work Phone: [employer]. 03-13-2020 15:58-0400 Diastolic blood pressure 78 mm[Hg] Cindy Taco [employer] Work Phone: [employer]. 03-13-2020 15:58-0400 Heart rate 77 /min Cindy Taco [employer] Work Phone: [employer]. 03-13-2020 15:58-0400 Systolic blood pressure 165 mm[Hg] Cindy Taco [employer] Work Phone: [employer]. 11-27-2019 13:52-0400 Body height 163.83 cm Zion Chahal MD Work Phone: [employer]. 11-27-2019 13:52-0400 Body mass index (BMI) [Ratio] 22.48 kg/m2 Zion Chahal MD Work Phone: [employer]. 11-27-2019 13:52-0400 Body surface area Derived from formula 1.65 m2 Zion Chahal MD Work Phone: [employer]. 11-27-2019 13:52-0400 Body weight 60.33 kg Zion Chahal MD Work Phone: [employer]. 11-27-2019 13:52-0400 Diastolic blood pressure 76 mm[Hg] Zion Chahal MD Work Phone: [employer] 11-27-2019 13:52-0400 Heart rate 80 /min Zion Chahal MD Work Phone: [employer]. 11-27-2019 13:52-0400 Systolic blood pressure 153 mm[Hg] Zion Chahal MD Work Phone: [employer] 01-09-2019 14:06-0400 Body height 163.83 cm 91 Boyuan Wireles [employer] Work Phone: [employer]. 01-09-2019 14:06-0400 Body mass index (BMI) [Ratio] 22.65 kg/m2 91 Boyuan Wireles [employer] Work Phone: [employer]. 01-09-2019 14:06-0400 Body surface area Derived from formula 1.66 m2 CindySMR SITE [employer] Work Phone: [employer]. 01-09-2019 14:06-0400 Body weight 60.78 kg Cindy Taco [employer] Work Phone: [employer]. 01-09-2019 14:06-0400 Diastolic blood pressure 78 mm[Hg] 91 Boyuan Wireles [employer] Work Phone: [employer]. 01-09-2019 14:06-0400 Heart rate 63 /min 91 Boyuan Wireles [employer] Work Phone: [employer] 01-09-2019 14:06-0400 Systolic blood pressure 210 mm[Hg] [facility] [employer] Work Phone: [employer]. 11-07-2018 13:32-0400 Body height 163.83 cm Zion Chahal MD Work Phone: [employer] 11-07-2018 13:32-0400 Body mass index (BMI) [Ratio] 21.97 kg/m2 Zion Chahal MD Work Phone: [employer] 11-07-2018 13:32-0400 Body surface area Derived from formula 1.64 m2 Zion Chahal MD Work Phone: [employer]. 11-07-2018 13:32-0400 Body weight 58.97 kg Zion Chahal MD Work Phone: [employer]. 11-07-2018 13:32-0400 Diastolic blood pressure 71 mm[Hg] Zion Chahal MD Work Phone: [employer]. 11-07-2018 13:32-0400 Heart rate 65 /min Zion Chahal MD Work Phone: [employer] 11-07-2018 13:32-0400 Systolic blood pressure 197 mm[Hg] Zion Chahal MD Work Phone: [employer] 07-13-2018 10:42-0500 Body height 163.83 cm [facility] Work Phone: [employer] 07-13-2018 10:42-0500 Body mass index (BMI) [Ratio] 22.65 kg/m2 Cindy Taco [facility] Work Phone: [employer] 07-13-2018 10:42-0500 Body surface area Derived from formula 1.66 m2 Cindy Taco [employer] Work Phone: [employer] 07-13-2018 10:42-0500 Body weight 60.78 kg Cindy Taco [employer] Work Phone: [employer]. 07-13-2018 10:42-0500 Diastolic blood pressure 80 mm[Hg] Cindy Taco [employer] Work Phone: [employer]. 07-13-2018 10:42-0500 Heart rate 70 /min Cindy Taco [employer] Work Phone: [employer]. 07-13-2018 10:42-0500 Systolic blood pressure 188 mm[Hg] Cindy Taco [employer] Work Phone: [employer] 05-04-2018 11:11-0400 Body height 163.83 cm Cindy Taco [employer] Work Phone: [employer] 05-04-2018 11:11-0400 Body mass index (BMI) [Ratio] 21.97 kg/m2 Cindy Taco [employer] Work Phone: [employer] 05-04-2018 11:11-0400 Body surface area Derived from formula 1.64 m2 Cindy Taco [employer] Work Phone: [employer] 05-04-2018 11:11-0400 Body weight 58.97 kg Cindy Taco [employer] Work Phone: [employer] 05-04-2018 11:11-0400 Diastolic blood pressure 90 mm[Hg] Cindy Taco [employer] Work Phone: [employer] 05-04-2018 11:11-0400 Heart rate 80 /min Cindy España [employer] Work Phone: [employer] 05-04-2018 11:11-0400 Systolic blood pressure 178 mm[Hg] Cindy Talboty [employer] Work Phone: [employer] 03-22-2018 08:38-0400 Body height 163.83 cm Elsy Pena LPN [employer] 03-22-2018 08:38-0400 Body mass index (BMI) [Ratio] 22.48 kg/m2 Elsy Pena LPN [employer] 03-22-2018 08:38-0400 Body surface area Derived from formula 1.65 m2 Elsy Pena LPN [employer] 03-22-2018 08:38-0400 Body weight 60.33 kg [facility] [employer] 03-22-2018 08:38-0400 Diastolic blood pressure 84 mm[Hg] Elsy Pena LPN [employer] 03-22-2018 08:38-0400 Heart rate 76 /min Elsy Pena LPN [employer] 03-22-2018 08:38-0400 Systolic blood pressure 194 mm[Hg] Elsy Pena LPN [employer] 02-24-2017 10:36-0400 Body height 163.83 cm Cindy España [employer] Work Phone: [employer] 02-24-2017 10:36-0400 Body mass index (BMI) [Ratio] 22.81 kg/m2 Cindy España [employer] Work Phone: [employer] 02-24-2017 10:36-0400 Body surface area Derived from formula 1.66 m2 Cindy Taco [employer] Work Phone: [employer] 02-24-2017 10:36-0400 Body weight 61.24 kg Cindy Taco [employer] Work Phone: [employer] 02-24-2017 10:36-0400 Diastolic blood pressure 90 mm[Hg] Cindy Taco [employer] Work Phone: [employer] 02-24-2017 10:36-0400 Heart rate 62 /min Cindy Taco [employer] Work Phone: [employer] 02-24-2017 10:36-0400 Systolic blood pressure 191 mm[Hg] Cindy Taco [employer] Work Phone: [employer] 11-20-2016 14:26-0400 Body height 163.83 cm Cindy Taco [employer] Work Phone: [employer] 11-20-2016 14:26-0400 Body mass index (BMI) [Ratio] 22.65 kg/m2 Cindy Taco [employer] Work Phone: [employer] 11-20-2016 14:26-0400 Body surface area Derived from formula 1.66 m2 Cindy Taco [employer] Work Phone: [employer] 11-20-2016 14:26-0400 Body weight 60.78 kg Cindy Taco [employer] Work Phone: [employer] 11-20-2016 14:26-0400 Diastolic blood pressure 77 mm[Hg] Cindy Taco [employer] Work Phone: [employer] 11-20-2016 14:26-0400 Heart rate 66 /min Cindy Taco [employer] Work Phone: [employer] 11-20-2016 14:26-0400 Systolic blood pressure 177 mm[Hg] Cindy Taco [employer] Work Phone: [employer] 05-07-2016 14:35-0400 Body weight 61.69 kg Neilee L Vess [employer] 05-07-2016 14:35-0400 Diastolic blood pressure 65 mm[Hg] Neilee L Vess [employer] 05-07-2016 14:35-0400 Heart rate 62 /min Neilee L Vess [employer] 05-07-2016 14:35-0400 Systolic blood pressure 168 mm[Hg] Neilee L Vess [employer] 12-30-2015 13:11-0400 Body height 163.83 cm Cindy Taco [employer] Work Phone: [employer] 12-30-2015 13:11-0400 Body mass index (BMI) [Ratio] 24 kg/m2 Cindy Taco [employer] Work Phone: [employer] 12-30-2015 13:11-0400 Body surface area Derived from formula 1.7 m2 Cindy Taco [employer] Work Phone: [employer] 12-30-2015 13:11-0400 Body weight 64.41 kg Cindy Taco [employer] Work Phone: [employer] 12-30-2015 13:11-0400 Diastolic blood pressure 76 mm[Hg] Cindy Taco [employer] Work Phone: [employer] 12-30-2015 13:11-0400 Heart rate 62 /min Cindy Taco [employer] Work Phone: [employer] 12-30-2015 13:11-0400 Systolic blood pressure 210 mm[Hg] Cindy Taco [employer] Work Phone: [employer] 08-07-2015 11:31-0500 Diastolic blood pressure 78 mm[Hg] Cindy Taco [employer] Work Phone: [employer] 08-07-2015 11:31-0500 Systolic blood pressure 201 mm[Hg] Cindy Taco [employer] Work Phone: [employer] 08-07-2015 10:01-0500 Body height 163.83 cm Cindy Taco [employer] Work Phone: [employer] 08-07-2015 10:01-0500 Body mass index (BMI) [Ratio] 23.66 kg/m2 Cindy Taco [employer] Work Phone: [employer] 08-07-2015 10:01-0500 Body surface area Derived from formula 1.69 m2 Cindy Taco [employer] Work Phone: [employer] 08-07-2015 10:01-0500 Body weight 63.5 kg Cindy Taco [employer] Work Phone: [employer] 08-07-2015 10:01-0500 Diastolic blood pressure 82 mm[Hg] Cindy Taco [employer] Work Phone: [employer] 08-07-2015 10:01-0500 Heart rate 80 /min Cindy Taco [employer] Work Phone: [employer] 08-07-2015 10:01-0500 Systolic blood pressure 201 mm[Hg] Cindy Taco [employer] Work Phone: [employer] 02-08-2015 09:49-0400 Body height 163.83 cm Cindy Taco [employer] Work Phone: [employer] 02-08-2015 09:49-0400 Body mass index (BMI) [Ratio] 23.49 kg/m2 Cindy Taco [employer] Work Phone: [employer] 02-08-2015 09:49-0400 Body surface area Derived from formula 1.69 m2 Cindy Taco [employer] Work Phone: [employer] 02-08-2015 09:49-0400 Body weight 63.05 kg Cindy Taco [employer] Work Phone: [employer] 02-08-2015 09:49-0400 Diastolic blood pressure 81 mm[Hg] Cindy Taco [employer] Work Phone: [employer] 02-08-2015 09:49-0400 Heart rate 75 /min Cindy Taco [employer] Work Phone: [employer] 02-08-2015 09:49-0400 Systolic blood pressure 150 mm[Hg] Cindy Taco [employer] Work Phone: [employer] 12-10-2014 13:43-0400 Body height 163.83 cm Cindy Taco [employer] Work Phone: [employer] 12-10-2014 13:43-0400 Body mass index (BMI) [Ratio] 23.32 kg/m2 Cindyvenita Talboty [employer] Work Phone: [employer] 12-10-2014 13:43-0400 Body surface area Derived from formula 1.68 m2 Cindy Talboty [employer] Work Phone: [employer] 12-10-2014 13:43-0400 Body temperature 98.8 [degF] Cindy España [employer] Work Phone: [employer] 12-10-2014 13:43-0400 Body weight 62.6 kg Cindy España [employer] Work Phone: [employer] 12-10-2014 13:43-0400 Diastolic blood pressure 75 mm[Hg] Cindy Talboty [employer] Work Phone: [employer] 12-10-2014 13:43-0400 Heart rate 67 /min Cindy España [employer] Work Phone: [employer] 12-10-2014 13:43-0400 Systolic blood pressure 126 mm[Hg] Cindy Talboty [employer] Work Phone: [employer] 08-06-2014 14:03-0500 Body height 163.83 cm Cindy España [employer] Work Phone: [employer] 08-06-2014 14:03-0500 Body mass index (BMI) [Ratio] 23.66 kg/m2 Cindy Taco [employer] Work Phone: [employer] 08-06-2014 14:03-0500 Body surface area Derived from formula 1.69 m2 Cindyvenita Talboty [employer] Work Phone: [employer]. 08-06-2014 14:03-0500 Body weight 63.5 kg Cindy Taco [employer] Work Phone: [employer] 08-06-2014 14:03-0500 Diastolic blood pressure 85 mm[Hg] Cindy Taco [employer]ENT[employer] Work Phone: [employer]. 08-06-2014 14:03-0500 Heart rate 72 /min Cindy Taco [employer] Work Phone: [employer] 08-06-2014 14:03-0500 Systolic blood pressure 183 mm[Hg] Cindy Taco [employer] Work Phone: [employer] 01-29-2014 14:09-0400 Body height 163.83 cm Cindy Taco [employer] Work Phone: [employer] 01-29-2014 14:09-0400 Body mass index (BMI) [Ratio] 24 kg/m2 Cindy Taco [employer] Work Phone: [employer] 01-29-2014 14:09-0400 Body surface area Derived from formula 1.7 m2 Cindy Taco [employer] Work Phone: [employer] 01-29-2014 14:09-0400 Body temperature 98.5 [degF] Cindy Taco [employer] Work Phone: [employer] 01-29-2014 14:09-0400 Body weight 64.41 kg Cindy Taco [employer] Work Phone: [employer] 01-29-2014 14:09-0400 Diastolic blood pressure 79 mm[Hg] Cindy Taco [employer] Work Phone: [employer] 01-29-2014 14:09-0400 Heart rate 68 /min Cindy Taco [employer] Work Phone: [employer] 01-29-2014 14:09-0400 Systolic blood pressure 151 mm[Hg] Cindyvenita Talboty [employer] Work Phone: [email or web address] 01-11-2014 11:35-0400 Body weight 65.32 kg Neilee L Vess [employer]PERIMENT[employer] 01-11-2014 11:35-0400 Diastolic blood pressure 81 mm[Hg] Neilee L Vess [employer] 01-11-2014 11:35-0400 Heart rate 58 /min Neilee L Vess [employer] 01-11-2014 11:35-0400 Systolic blood pressure 192 mm[Hg] Neilee L Vess [employer] 11-13-2013 15:17-0400 Body height 163.83 cm Cindy España [employer]ENT[employer] Work Phone: [employer] 11-13-2013 15:17-0400 Body mass index (BMI) [Ratio] 24.34 kg/m2 Cindy Taco [employer] Work Phone: [employer] 11-13-2013 15:17-0400 Body surface area Derived from formula 1.71 m2 Cindy Taco [employer] Work Phone: [employer] 11-13-2013 15:17-0400 Body weight 65.32 kg Cindy Taco [employer] Work Phone: [employer] 11-13-2013 15:17-0400 Diastolic blood pressure 77 mm[Hg] Cindy Taco [employer]ENT[employer] Work Phone: [employer] 11-13-2013 15:17-0400 Heart rate 67 /min Cindy Taco [employer] Work Phone: [employer] 11-13-2013 15:17-0400 Systolic blood pressure 152 mm[Hg] Cindy Taco [employer] Work Phone: [employer] 01-16-2013 14:17-0400 Body height 163.83 cm Cindy Taco [employer] Work Phone: [employer] 01-16-2013 14:17-0400 Body mass index (BMI) [Ratio] 24.67 kg/m2 Cindy Taco [employer] Work Phone: [employer] 01-16-2013 14:17-0400 Body surface area Derived from formula 1.72 m2 Cindy Taco [employer] Work Phone: [employer]. 01-16-2013 14:17-0400 Body weight 66.23 kg Cindy Taco [employer]ENT[employer] Work Phone: [employer]. 01-16-2013 14:17-0400 Diastolic blood pressure 84 mm[Hg] Cindy Taco [employer]PERIMENT[employer] Work Phone: [employer] 01-16-2013 14:17-0400 Heart rate 60 /min Cindy Taco [employer]ENT[employer] Work Phone: [employer]. 01-16-2013 14:17-0400 Systolic blood pressure 186 mm[Hg] Cindy Taco [employer]ENTAL Work Phone: [employer] 02-12-2012 09:48-0400 Body height 163.83 cm Cindy Taco [employer]AKER [employer]PERIMENTAL Work Phone: [employer] 02-12-2012 09:48-0400 Body mass index (BMI) [Ratio] 24.5 kg/m2 Cindy Taco [employer]EMAKER [employer]PERIMENTAL Work Phone: [employer] 02-12-2012 09:48-0400 Body surface area Derived from formula 1.72 m2 Cindy Taco [employer]PERIMENTAL Work Phone: [employer] 02-12-2012 09:48-0400 Body weight 65.77 kg Cindyvenita Talboty [employer]PERIMENTAL Work Phone: [employer]. 02-12-2012 09:48-0400 Diastolic blood pressure 89 mm[Hg] Cindy Taco [employer]EMAKER EXPERIMENTAL Work Phone: [employer]. 02-12-2012 09:48-0400 Heart rate 62 /min Cindy Taco [employer]EMAKER [employer]PERIMENTAL Work Phone: [employer]. 02-12-2012 09:48-0400 Systolic blood pressure 179 mm[Hg] Cindy Taco [employer]EMAKER [employer]PERIMENTAL Work Phone: [employer]. 08-11-2011 16:48-0500 Body weight 64.52 kg Patrica Long LPN [employer] 08-11-2011 16:48-0500 Diastolic blood pressure 81 mm[Hg] Patrica Jinermarc COOK [employer] 08-11-2011 16:48-0500 Heart rate 65 /min Patrica Long LPN [employer], [employer]. 08-11-2011 16:48-0500 Systolic blood pressure 173 mm[Hg] Patrica Long [employer]AKER [employer]PERIMENT[employer] 07-06-2011 15:49-0500 Body temperature 95.5 [degF] Cindy Taco [employer]AKER [employer]PERIMENTAL Work Phone: [employer] 07-06-2011 15:49-0500 Body weight 64.86 kg Cindy Taco [employer]EMAKER [employer]PERIMENTAL Work Phone: [employer] 07-06-2011 15:49-0500 Diastolic blood pressure 69 mm[Hg] Cindy Taco [employer]EMAKER EXPERIMENTAL Work Phone: [employer] 07-06-2011 15:49-0500 Heart rate 59 /min Cindy Taco [employer]EMAKER EXPERIMENTAL Work Phone: [employer] 07-06-2011 15:49-0500 Systolic blood pressure 163 mm[Hg] Cindy Taco [employer]EMAKER [employer]PERIMENTAL Work Phone: [employer] 06-29-2011 11:12-0400 Diastolic blood pressure 74 mm[Hg] Cindy Taco [employer]EMAKER EXPERIMENTAL Work Phone: [employer] 06-29-2011 11:12-0400 Heart rate 73 /min Cindy Taco [employer]EMAKER [employer]PERIMENTAL Work Phone: [employer] 06-29-2011 11:12-0400 Systolic blood pressure 139 mm[Hg] Cindy Taco [employer]EMAKER EXPERIMENTAL Work Phone: [employer] 06-29-2011 11:12-0400 Diastolic blood pressure 71 mm[Hg] Cindy Taco [employer]EMAKER [employer]PERIMENTAL Work Phone: [employer]. 06-29-2011 11:12-0400 Heart rate 66 /min Cindy Taco [employer]EMAKER [employer]PERIMENTAL Work Phone: [employer] 06-29-2011 11:12-0400 Systolic blood pressure 146 mm[Hg] Cindy Taco [employer]EMAKER EXPERIMENTAL Work Phone: [employer] 06-29-2011 11:11-0400 Diastolic blood pressure 77 mm[Hg] Cindy Taco [employer]EMAKER EXPERIMENTAL Work Phone: [employer] 06-29-2011 11:11-0400 Heart rate 62 /min Cindy Taco [employer]EMAKER EXPERIMENTAL Work Phone: [employer] 06-29-2011 11:11-0400 Systolic blood pressure 155 mm[Hg] Cindy Taco [employer]EMAKER EXPERIMENTAL Work Phone: [employer] 06-29-2011 09:35-0400 Body temperature 97.4 [degF] Cindy Taco [employer]EMAKER EXPERIMENTAL Work Phone: [employer] 06-29-2011 09:35-0400 Body weight 63.05 kg Cindy Taco [employer]EMAKER EXPERIMENTAL Work Phone: [employer] 06-29-2011 09:35-0400 Diastolic blood pressure 77 mm[Hg] Cindy Taco [employer]EMAKER EXPERIMENTAL Work Phone: [employer] 06-29-2011 09:35-0400 Heart rate 67 /min Cindy Taco [employer]EMAKER EXPERIMENTAL Work Phone: [employer] 06-29-2011 09:35-0400 Inhaled oxygen concentration 20 % Cindy Taco [employer]EMAKER EXPERIMENTAL Work Phone: [employer] 06-29-2011 09:35-0400 Inhaled oxygen concentration 21 % Cindy Taco COREMAKER EXPERIMENTAL Work Phone: [employer] 06-29-2011 09:35-0400 SaO2% (BldA) [Mass fraction] 97 % Cindy Taco [employer]EMAKER EXPERIMENTAL Work Phone: [employer] 06-29-2011 09:35-0400 Systolic blood pressure 170 mm[Hg] Cindy Taco [employer]EMAKER EXPERIMENTAL Work Phone: [employer], [employer] 05-21-2011 15:14-0400 Body weight 64.86 kg Patrica Denisserafinmarc JOEY [employer] 05-21-2011 15:14-0400 Diastolic blood pressure 72 mm[Hg] Patrica Ethan COOK [employer], [employer] 05-21-2011 15:14-0400 Heart rate 55 /min Patrica Denisdeirdre COOK [employer], [employer] 05-21-2011 15:14-0400 Systolic blood pressure 147 mm[Hg] Patrica Deniswillshilo JOEY [employer] 02-26-2011 14:04-0400 Body weight 64.41 kg Cindy España [employer]EMAKER EXPERIMENTAL Work Phone: [employer] 02-26-2011 14:04-0400 Diastolic blood pressure 65 mm[Hg] Cindy Taco [employer]EMAKER EXPERIMENTAL Work Phone: [employer], [employer] 02-26-2011 14:04-0400 Heart rate 46 /min Cindy Taco [employer]EMAKER EXPERIMENTAL Work Phone: [employer], [employer] 02-26-2011 14:04-0400 Systolic blood pressure 177 mm[Hg] Cindy Taco [employer]EMAKER EXPERIMENTAL Work Phone: [employer] 01-29-2011 14:13-0400 Body temperature 97.1 [degF] Neilee L Vess [employer]EMAKER EXPERIMENTAL [employer] 01-29-2011 14:13-0400 Body weight 64.41 kg Neilee L Vess [employer]EMAKER [employer]PERIMENTAL [employer] 01-29-2011 14:13-0400 Diastolic blood pressure 80 mm[Hg] Neilee L Vess [employer]EMAKER [employer]PERIMENTAL [employer] 01-29-2011 14:13-0400 Heart rate 73 /min Neilee L Vess [employer]AKER [employer]PERIMENT[employer] 01-29-2011 14:13-0400 Systolic blood pressure 144 mm[Hg] Neilee L Vess [employer]AKER [employer]PERIMENTAL [employer] 12-31-2010 14:36-0400 Body weight 64.41 kg Cindy Taco [employer]EMAKER EXPERIMENTAL Work Phone: [employer]. 12-31-2010 14:36-0400 Diastolic blood pressure 74 mm[Hg] Cindy Taco [employer]EMAKER EXPERIMENTAL Work Phone: [employer] 12-31-2010 14:36-0400 Heart rate 73 /min Cindy Taco [employer]EMAKER EXPERIMENTAL Work Phone: [employer]. 12-31-2010 14:36-0400 Systolic blood pressure 148 mm[Hg] Cindy Taco [employer]EMAKER EXPERIMENTAL Work Phone: [employer]. 2010 11:16-0400 Body height 166.37 cm Zion Chahal MD Work Phone: [employer]. 2010 11:16-0400 Body mass index (BMI) [Ratio] 24.17 kg/m2 Zion Chahal MD Work Phone: [employer] 2010 11:16-0400 Body surface area Derived from formula 1.75 m2 Zion Chahal MD Work Phone: [employer]. 2010 11:16-0400 Body temperature 97.3 [degF] Zion Chahal MD Work Phone: [employer] 2010 11:16-0400 Body weight 66.91 kg Zion Chahal MD Work Phone: [employer]. 2010 11:16-0400 Diastolic blood pressure 75 mm[Hg] Zion Chahal MD Work Phone: [employer] 2010 11:16-0400 Heart rate 71 /min Zion Chahal MD Work Phone: [employer] 2010 11:16-0400 Systolic blood pressure 152 mm[Hg] Zion Chahal MD Work Phone: [employer] 07-16-2010 12:00-0500 Body weight 65.77 kg Zion Chahal MD Work Phone: [employer] 07-16-2010 12:00-0500 Diastolic blood pressure 75 mm[Hg] Zion Chahal MD Work Phone: [employer] 07-16-2010 12:00-0500 Heart rate 69 /min Zion Chahal MD Work Phone: [employer] 07-16-2010 12:00-0500 Systolic blood pressure 153 mm[Hg] Zion Chahal MD Work Phone: [employer] [facility] Encounters Encounter Date Encounter Type Care Provider Facility Start: 02-23-2025 ambulatory Zion Grayariello Facili ty:[facility] Start: 02-22-2025 End: 02-22-2025 Zion Chahal MD Work Phone: [facility] Start: 02-15-2025 Zion boyd MD Work Phone: [facility] Start: 02-05-2025 End: 02-05-2025 Zion Chahal MD Work Phone: [facility] Start: 02-05-2025 End: 02-05-2025 Patient encounter procedure Zion PRIETS -[facility] Work Phone: Start: 02-05-2025 End: 02-05-[address] Zion Chahal MD Work Phone: [facility] Work Phone: Start: 01-16-2025 ambulatory Zion Vaccariello Facili ty:[facility] Start: 09-18-2024 End: 09-18-2024 [facility]ulatory [facility] Facility:[facility] Start: 09-11-2024 End: 09-11-2024 ambulatory [facility] Facility:[facility] Start: 07-04-2024 ambulatory Sydney Delong NP Facili ty:[facility] Start: 07-03-2024 End: 07-03-2024 ambulatory Thomas Epstein Facility:[facility] Start: 06-29-2024 ambulatory Uche Zee Facility:[facility] Start: 06-29-2024 ambulatory Zion Vaccariello Facili ty:[facility] Start: 06-29-2024 End: 06-29-2024 ambulatory Zion Vaccariello Facility:[facility] Start: 06-20-2024 End: 06-20-2024 ambulatory Zion Vaccariello Facility:[facility] Start: 06-20-2024 End: 06-20-2024 ambulatory Zion Vaccariello Facility:[facility] Start: 06-14-2024 End: 06-14-2024 Zion Chahal MD Work Phone: [employer] Start: 06-07-2024 End: 06-07-2024 Zion Chahal MD Work Phone: [employer] Start: 06-05-2024 End: 06-05-2024 Emergency department patient visit Demian Miranda Facility:[facility] Start: 05-22-2024 End: 05-22-2024 Zion Chahal MD Work Phone: [employer] Start: 04-10-2024 End: 04-10-2024 Office outpatient visit 15 minutes Zion Chahal MD Work Phone: [employer] Start: 04-10-2024 Zion boyd MD Work Phone: [employer] Start: 04-03-2024 End: 04-03-2024 Zion Chahal MD Work Phone: [employer] Start: 04-03-2024 ambulatory [facility] Facility[facility] Start: 04-01-2024 ambulatory Uche Lazo Facility:[facility] Start: 04-01-2024 End: 04-02-2024 Evaluation and management of inpatient Uchedaniel Lazo Facility:[facility] Start: 03-31-2024 End: 03-31-2024 Zion Chahal MD Work Phone: [employer] Start: 03-13-2024 End: 03-13-2024 ambulatory Zion Pelayo NP Facility:[facility] Start: 03-06-2024 End: 03-06-2024 Zion Chahal MD Work Phone: [employer] Start: 03-03-2024 End: 03-03-2024 ambulatory Zion Chahal Facility:[facility] Start: 03-03-2024 ambulatory Thomas Cast Fac ility:[facility] Start: 03-03-2024 End: 03-03-2024 Evaluation and management of inpatient Thomas Cast Facility:[facility] Start: 02-24-2024 End: 02-24-2024 Office outpatient visit 15 minutes [facility] Start: 02-24-2024 [facility]d MD Work Phone[facility] Start: 02-14-2024 End: 02-14-2024 Zion Chahal MD Work Phone[facility] Start: 02-07-2024 End: 02-07-2024 Office outpatient visit 25 minutes Zion Chahal MD Work Phone[facility] Start: 02-07-2024 End: 02-07-2024 Zion Chahal MD Work Phone[facility] Start: 01-21-2024 End: 01-21-2024 Zion Chahal MD Work Phone[facility] Start: 06-18-2023 End: 06-18-2023 Zion Chahal MD Work Phone[facility] Start: 06-02-2023 End: 06-02-2023 Zion Chahal MD Work Phone[facility] Start: 05-21-2023 End: 05-21-[address] Zion Chahal Work Phone: [facility] Work Phone: Start: 05-10-2023 End: 05-29-[address] Zion Chahal Work Phone: [facility] Work Phone: Start: 05-10-2023 End: 05-29-[address] Zion Chahal Work Phone: [facility] Work Phone: Start: 04-28-2023 End: 04-28-2023 Zion Chahal MD Work Phone: [facility]. Start: 04-26-2023 End: 04-29-[address] Zion Chahal Work Phone: [facility] Work Phone: Start: 04-26-2023 End: 04-29-[address] Zion Chahal Work Phone: [facility] Work Phone: Start: 04-24-2023 Non-patient / Non-visit Dr. Pat Chahal Work Phone: [facility] Work Phone: Start: 04-24-2023 Non-patient / Non-visit Dr. Pat Chahal Work Phone: [facility] Start: 04-23-2023 Non-patient / Non-visit Dr. Pat Chahal Work Phone: [facility] Work Phone: Start: 04-23-2023 End: 04-24-2023 Evaluation and management of inpatient Dr. Zion Chahal Work Phone: [facility] Work Phone: Start: 04-23-2023 End: 04-24-[address] Zion Chahal Work Phone: [facility] Work Phone: Start: 04-23-[address] Zion Chahal Work Phone: [facility] Work Phone: Start: 04-05-[address] Zion Chahal Work Phone: [facility] Work Phone: Start: 04-02-2023 End: 04-02-[address] Zion Chahal Work Phone: [facility] Work Phone: Start: 04-02-2023 End: 04-02-[address] Zion Chahal Work Phone: [facility] Work Phone: Start: 03-31-2023 End: 03-31-2023 Zion Chahal MD Work Phone: [facility] Start: 03-29-2023 End: 03-29-[address] Zion Chahal Work Phone: [facility] Work Phone: Start: 03-29-2023 End: 03-29-[address] Zion Chahal Work Phone: [facility] Work Phone: Start: 03-08-2023 End: 03-08-2023 Zion Chahal MD Work Phone: [facility] Start: 03-05-2023 End: 03-05-2023 Emergency department patient visit Dr. Zion Chahal Work Phone: [facility] Work Phone: Start: 03-05-[address] Zion Chahal Work Phone: [facility] Work Phone: Start: 03-05-2023 End: 03-05-[address] Zion Chahal Work Phone: [facility] Work Phone: Start: 02-26-2023 End: 02-26-[address] Zion Chahal Work Phone: [facility] Work Phone: Start: 02-26-2023 End: 02-26-[address] Zion Chahal Work Phone: [facility] Work Phone: Start: 02-10-[address] Zion Chahal Work Phone: [facility] Start: 02-05-2023 End: 02-05-[address] Zion Chahal Work Phone: [facility] Work Phone: Start: 02-05-2023 End: 02-05-[address] Zino Chahal Work Phone: [facility] Start: 01-22-2023 Non-patient / Non-visit Dr. Pat Chahal Work Phone: [facility] Start: 01-21-2023 Non-patient / Non-visit Dr. Pat Chahal Work Phone: [facility] Start: 01-21-2023 End: 01-22-2023 Evaluation and management of inpatient Dr. Zion Chahal Work Phone: [facility] Start: 01-14-2023 End: 01-14-2023 Zion Chahal MD Work Phone: [facility] Start: 01-04-2023 End: 01-04-[address] Zion Chahal Work Phone: [facility] Work Phone: Start: 01-04-2023 End: 01-04-[address] Zion Chahal Work Phone: [facility] Start: 01-04-2023 End: 01-04-[address] Zion Chahal Work Phone: [facility] Start: 06-10-2022 End: 06-10-2022 Zion Chahal MD Work Phone: [facility] Start: 03-26-2022 End: 03-26-2022 Patient encounter status Cindy España LPN Work Phone: [facility] Start: 03-26-2022 End: 03-26-2022 Zion Chahal MD Work Phone: [facility] Start: 03-25-2022 End: 03-25-2022 Zion Chahal MD Work Phone: [facility] Start: 03-20-2022 End: 03-20-[address] Zion Chahal Work Phone: [facility] Start: 03-16-2022 End: 03-16-[address] Zion Chahal Work Phone: [facility] Start: 03-16-[address] Zion zaragoza Work Phone: [facility] Start: 03-12-2022 End: 03-12-[address] Zion Chahal Work Phone: [facility] Start: 03-12-[address] Zion zaragoza Work Phone: [facility] Start: 03-09-2022 End: 03-09-[address] Zion Chahal Work Phone: [facility] Start: 03-09-2022 End: 03-09-[address] Zion Chahal Work Phone: [facility] Start: 03-06-2022 End: 03-06-[address] Zion Chahal Work Phone: [facility] Start: 03-05-2022 Non-patient / Non-visit Dr. Pat Chahal Work Phone: [facility] Start: 03-05-2022 Non-patient / Non-visit Dr. Pat Chahal Work Phone: [facility] Start: 03-04-2022 Non-patient / Non-visit Dr. Pat Chahal Work Phone: [facility] Start: 03-04-2022 End: 03-04-2022 Zion Chahal MD Work Phone: [facility] Start: 03-03-2022 Non-patient / Non-visit Dr. Pat Chahal Work Phone: [facility] Start: 03-02-2022 Non-patient / Non-visit Dr. Pat Chahal Work Phone: [facility] Start: 03-01-2022 Non-patient / Non-visit Dr. Pat Chahal Work Phone: [facility] Start: 03-01-2022 Non-patient / Non-visit Dr. Pat Chahal Work Phone: [facility] Start: 02-28-2022 Non-patient / Non-visit Dr. Pat Chahal Work Phone: [facility] Start: 02-28-2022 Non-patient / Non-visit Dr. Pat Chahal Work Phone: [facility] Start: 02-27-2022 Non-patient / Non-visit Dr. Pat Chahal Work Phone: [facility] Start: 02-26-2022 Non-patient / Non-visit Dr. Pat Chahal Work Phone: [facility] Start: 02-26-2022 End: 03-05-2022 Evaluation and management of inpatient Dr. Zion Chahal Work Phone: [facility] Start: 02-26-2022 Non-patient / Non-visit Dr. Pat Chahal Work Phone: [facility] Start: 01-28-2022 End: 01-28-2022 Zion Chahal MD Work Phone: [facility] [employer] Start: 01-28-2022 End: 01-28-[address] Zion Chahal Work Phone: [facility] Start: 06-16-2021 End: 06-16-2021 Zion Chahal MD Work Phone: [employer] Start: 12-16-2020 End: 12-16-2020 Patient encounter status Zion Chahal MD Work Phone: [employer]; [employer] Start: 12-16-2020 End: 12-16-2020 Zion Chahal MD Work Phone: [employer] Start: 10-28-2020 End: 10-28-2020 Zion Chahal MD Work Phone: [employer] Start: 10-22-2020 End: 10-23-2020 Zion Chahal MD Work Phone: [employer] Start: 07-12-2020 End: 07-12-2020 Zion Chahal MD Work Phone: [employer] Start: 06-03-2020 End: 06-03-2020 Zion Chahal MD Work Phone: [employer] Start: 04-22-2020 End: 04-22-2020 Zion Chahal MD Work Phone: [employer] Start: 04-18-2020 End: 04-18-2020 Zion Chahal MD Work Phone: [employer] Start: 04-04-2020 End: 04-04-2020 Zion Chahal MD Work Phone: [employer]. Start: 04-03-2020 End: 04-03-2020 Zion Chahal MD Work Phone: [employer] Start: 03-21-2020 End: 03-21-2020 Zion Chahal MD Work Phone: [employer]. Start: 03-15-2020 End: 03-15-2020 Zion Chahal MD Work Phone: [employer] Start: 03-13-2020 End: 03-13-2020 Office outpatient visit 15 minutes Zion Chahal MD Work Phone: [employer] Start: 02-28-2020 End: 02-28-2020 Zion Chahal MD Work Phone: [employer] Start: 02-26-2020 End: 02-26-2020 Zion Chahal MD Work Phone: [employer] [employer] Start: 02-20-2020 End: 02-20-2020 Zion Chahal MD Work Phone: [employer] Start: 12-27-2019 End: 12-27-2019 Zion Chahal MD Work Phone: [employer] Start: 12-25-2019 End: 12-25-2019 Zion Chahal MD Work Phone: [employer] Start: 12-11-2019 End: 12-11-2019 Zion Chahal MD Work Phone: [employer] Start: 11-29-2019 End: 11-29-2019 Zion Chahal MD Work Phone: [employer] Start: 11-27-2019 End: 11-28-2019 Office outpatient visit 25 minutes Zion Chahal MD Work Phone: [employer] Start: 03-23-2019 End: 03-24-2019 Zion Chahal MD Work Phone: [employer] Start: 03-15-2019 End: 03-16-2019 Zion Chahal MD Work Phone: [employer] Start: 03-13-2019 End: 03-13-2019 Zion Chahal MD Work Phone: [employer] Start: 01-09-2019 End: 01-09-2019 Zion Chahal MD Work Phone: [employer] Start: 12-08-2018 End: 12-08-2018 Zion Chahal MD Work Phone: [employer] Start: 11-28-2018 End: 11-28-2018 Zion Chahal MD Work Phone: [employer] Start: 11-10-2018 End: 11-10-2018 Zion Chahal MD Work Phone: [employer]. Start: 11-07-2018 End: 11-07-2018 Zion Chahal MD Work Phone: [employer] Start: 07-13-2018 End: 07-13-2018 Zion Chahal MD Work Phone: [employer] Start: 05-09-2018 End: 05-09-2018 Zion Chahal MD Work Phone: [employer]. Start: 05-04-2018 End: 05-04-2018 Zion Chahal MD Work Phone: [employer] Start: 03-22-2018 End: 03-23-2018 Office outpatient visit 15 minutes Zion Chahal MD Work Phone: [employer] Start: 03-22-2018 End: 03-23-2018 Patient encounter status Zion Chahal MD Work Phone: [employer]; [employer] Start: 03-21-2018 End: 03-21-2018 Zion Chahal MD Work Phone: [employer] Start: 12-20-2017 End: 12-20-2017 Zion Chahal MD Work Phone: [employer]. Start: 07-07-2017 End: 07-07-2017 Zion Chahal MD Work Phone: [employer] Start: 06-30-2017 End: 06-30-2017 Zion Chahal MD Work Phone: [employer] Start: 02-24-2017 End: 02-24-2017 Patient encounter status Zion Chahal MD Work Phone: [employer] Start: 02-24-2017 End: 02-24-2017 Zion Chahal MD Work Phone: [employer] Start: 02-01-2017 End: 02-01-2017 Zion Chahal MD Work Phone: [employer] Start: 12-16-2016 End: 12-16-2016 Zion Chahal MD Work Phone: [employer] Start: 12-10-2016 End: 12-10-2016 Zion Chahal MD Work Phone: [employer] Start: 11-28-2016 End: 11-28-2016 Zion Chahal MD Work Phone: [employer]. Start: 11-20-2016 End: 11-20-2016 Zion Chahal MD Work Phone: [employer] Start: 05-07-2016 End: 05-14-2016 Zion Chahal MD Work Phone: [employer] Start: 02-14-2016 End: 02-15-2016 Zion Chahal MD Work Phone: [employer] Start: 02-14-2016 End: 02-14-2016 Zion Chahal MD Work Phone: [employer] Start: 12-30-2015 End: 12-30-2015 Zion Chahal MD Work Phone: [employer] Start: 11-06-2015 End: 11-06-2015 Zion Chahal MD Work Phone: [employer] Start: 08-07-2015 End: 08-08-2015 Patient encounter status Zion Chahal MD Work Phone: [employer] Start: 08-07-2015 End: 08-08-2015 Zion Chahal MD Work Phone: [employer] Start: 07-15-2015 End: 07-15-2015 Zion Chahal MD Work Phone: [employer] Start: 07-04-2015 End: 07-04-2015 Zion Chahal MD Work Phone: [employer] Start: 06-19-2015 End: 06-19-2015 Zion Chahal MD Work Phone: [employer] Start: 02-08-2015 End: 02-15-2015 Zion Chahal MD Work Phone: [employer] Start: 12-10-2014 End: 12-10-2014 Zion Chahal MD Work Phone: [employer]. Start: 08-06-2014 End: 08-06-2014 Patient encounter status Zion Chahal MD Work Phone: [employer] Start: 08-06-2014 End: 08-06-2014 Zion Chahal MD Work Phone: [employer]. Start: 07-11-2014 End: 07-11-2014 Zion Chahal MD Work Phone: [employer] Start: 02-05-2014 End: 02-05-2014 Zion Chahal MD Work Phone: [employer]. Start: 01-29-2014 End: 01-29-2014 Zion Chahal MD Work Phone: [employer] Start: 01-11-2014 End: 01-11-2014 Zion Chahal MD Work Phone: [employer] Start: 12-28-2013 End: 12-28-2013 Zion Chahal MD Work Phone: [employer] Start: 12-11-2013 End: 12-11-2013 Zion Chahal MD Work Phone: [employer] Start: 11-13-2013 End: 11-15-2013 Zion Chahal MD Work Phone: [employer] Start: 08-09-2013 End: 08-09-2013 Zion Chahal MD Work Phone: [employer] Start: 04-27-2013 End: 04-27-2013 Zion Chahal MD Work Phone: [employer] Start: 04-01-2013 End: 04-01-2013 Zion Chahal MD Work Phone: [employer] Start: 01-16-2013 End: 01-16-2013 Zion Chahal MD Work Phone: [employer] Start: 08-11-2012 End: 08-11-2012 Zion Chahal MD Work Phone: [employer] Start: 08-10-2012 End: 08-10-2012 Zion Chahal MD Work Phone: [employer] Start: 07-26-2012 End: 07-27-2012 Zion Chahal MD Work Phone: [employer] Start: 02-18-2012 End: 02-18-2012 Zion Chahal MD Work Phone: [employer] Start: 02-12-2012 End: 02-12-2012 Zion Chahal MD Work Phone: [employer] Start: 02-12-2012 End: 02-12-2012 Routine general medical examination at a health care facility Zion Chahal MD Work Phone: [employer]; [employer] Start: 02-12-2012 End: 02-12-2012 Zion Chahal MD Work Phone: [employer] Start: 01-22-2012 End: 01-22-2012 Zion Chahal MD Work Phone: [employer] Start: 08-11-2011 End: 08-12-2011 Zion Chahal MD Work Phone: [employer] Start: 08-03-2011 End: 08-03-2011 Zion Chahal MD Work Phone: [employer] Start: 07-06-2011 End: 07-06-2011 Zion Chahal MD Work Phone: [employer] Start: 06-29-2011 End: 06-29-2011 Zion Chahal MD Work Phone: [employer] Start: 06-29-2011 End: 06-29-2011 Zion Chahal MD Work Phone: [employer] Start: 06-17-2011 End: 06-17-2011 Zion Chahal MD Work Phone: [employer] Start: 05-21-2011 End: 05-27-2011 Zion Chahal MD Work Phone: [employer] Start: 04-27-2011 End: 04-27-2011 Zion Chahal MD Work Phone: [employer] Start: 02-27-2011 End: 02-27-2011 Laboratory examination ordered as part of a routine general medical examination Zion Chahal MD Work Phone: [employer]; [facility] Start: 02-27-2011 End: 02-27-2011 Zion Chahal MD Work Phone: [employer] Start: 02-26-2011 End: 02-26-2011 Zion Chahal MD Work Phone: [employer] Start: 02-03-2011 End: 02-03-2011 Zion Chahal MD Work Phone: [place] [facility] Start: 01-29-2011 End: 01-29-2011 Zion Chahal MD Work Phone: [employer] Start: 12-31-2010 End: 12-31-2010 Zion Chahal MD Work Phone: [facility] Start: 2010 End: 2010 Zion Chahal MD Work Phone: [place] [facility] Start: 11-10-2010 End: 11-10-2010 Zion Chahal MD Work Phone: [employer] Start: 07-16-2010 End: 07-16-2010 Zion Chahal MD Work Phone: [employer] Start: 07-14-2010 End: 07-14-2010 Zion Chahal MD Work Phone: [facility] Procedures Date Procedure Procedure Detail Performing Clinician Start: 02-05-2025 End: 02-05-2025 Zion Chahal MD Work Phone: Start: 02-10-2024 End: 02-10-2024 Screening mammography Zion Chahal MD Work Phone: Start: 01-21-2024 End: 02-16-2024 Screening mammography bi 2-view breast inc cad Zion Chahal MD Work Phone: Start: 06-18-2023 End: 06-18-2023 Zion Chahal MD Work Phone: Start: 04-23-2023 Plain chest X-ray Dr. Zion Chahal Work Phone: Start: 01-21-2023 History of placement of stent for coronary artery disease History of coronary artery stent placement Zion Pelayo [employer]AT[employer] CHIEF-C Comment on above: mid to proximal RCA [place]26/22 [place] [id number] w/ 3.5 x 38 mm Resolute Lizella RX LEOBARDO 01/21/23 Start: 01-04-2023 Plain chest X-ray Dr. Zion Chahal Work Phone: Start: 07-15-2022 End: 07-15-2022 Screening mammography Dilcia Gonzalez [employer] Start: 06-10-2022 End: 06-10-2022 Most recent diastolic blood pressure 80-89 mm hg Zion Chahal MD Work Phone: Start: 06-10-2022 End: 06-10-2022 Most recent systolic blood pres>/equal 140 mm hg Zion Chahal MD Work Phone: Start: 03-26-2022 End: 03-26-2022 Adv care pln/ no alt dcsn mkr docd or refusal Zion Chahal MD Work Phone: Start: 03-26-2022 End: 03-26-2022 Depression screening Zion Chahal MD Work Phone: Start: 03-26-2022 End: 03-26-2022 Dischrg meds reconciled w/current med list Zion Chahal MD Work Phone: Start: 03-26-2022 End: 03-26-2022 Docrev cur meds by randolph fonseca MD Work Phone: Start: 03-26-2022 End: 03-26-2022 Falls risk assessment documented Zion Chahal MD Work Phone: Start: 03-26-2022 End: 03-26-2022 Most recent diastolic blood pressure 80-89 mm hg Zion Chahal MD Work Phone: Start: 03-26-2022 End: 03-26-2022 Most recent systolic blood pres>/equal 140 mm hg Zion Chahal MD Work Phone: Start: 03-26-2022 End: 03-26-2022 PPPS, subseq visit Zion Chahal MD Work Phone: Start: 03-26-2022 End: 03-26-2022 Pt falls assess docd 2/> falls/fall w/injury/yr Zion Chahal MD Work Phone: Start: 03-26-2022 End: 03-26-2022 Scr dep neg, no plan reqd Zion abarca MD Work Phone: Start: 03-01-[address] Zion Chahal Work Phone: Start: 02-26-2022 Plain X-ray of hip Dr. Zion Chahal Work Phone: Start: 02-26-2022 Plain x-ray of pelvis and lower extremity Dr. Zion Chahal Work Phone: Start: 02-26-2022 End: 02-26-2022 Lab findings surveillance Dilcia Gonzalez LPN Start: 02-26-2022 Revision uncemented total hip replacement Dr. Zion Chahal Work Phone: Start: 02-26-2022 Pelvis X-ray Dr. Zion Chahal Work Phone: Start: 02-26-2022 Plain X-ray of femur Dr. Zion Chahal Work Phone: Start: 02-20-2022 End: 02-20-2022 Screening colonoscopy Dilcia Gonzalez LPN Start: 01-28-2022 End: 07-16-2022 Screening mammography bi 2-view breast inc cad Zion Chahal MD Work Phone: Start: 01-28-2022 End: 01-28-2022 Total replacement of right hip joint Cindy España LPN Work Phone: Start: 06-16-2021 End: 06-16-2021 Body mass index documented Zion cunha MD Work Phone: Start: 06-16-2021 End: 06-16-2021 Most recent diastolic blood pressure 80-89 mm hg Zion Chahal MD Work Phone: Start: 06-16-2021 End: 06-16-2021 Most recent systolic blood pres>/equal 140 mm hg Zion Chahal MD Work Phone: Start: 12-16-2020 End: 12-16-2020 Depression screening Zion Chahal MD Work Phone: Start: 12-16-2020 End: 12-16-2020 Docrev cur meds by randolph fonseca MD Work Phone: Start: 12-16-2020 End: 12-16-2020 Falls risk assessment documented Zion Chahal MD Work Phone: Start: 12-16-2020 End: 12-16-2020 Most recent diastolic blood pressure 80-89 mm hg Zion Chahal MD Work Phone: Start: 12-16-2020 End: 12-16-2020 Most recent systolic blood pres>/equal 140 mm hg Zion Chahal MD Work Phone: Start: 12-16-2020 End: 12-16-2020 PPPS, subseq visit Zion Chahal MD Work Phone: Start: 12-16-2020 End: 12-16-2020 Pt falls assess docd w/o fall/injury past year Zion Chahal MD Work Phone: Start: 12-16-2020 End: 12-16-2020 Scr dep neg, no plan reqd Zion abarca MD Work Phone: Start: 12-09-2020 End: 12-09-2020 Lipid panel results documented & reviewed Dilcia Gonzalez LPN Start: 12-09-2020 End: 12-09-2020 Dilcia Gonzalez LPN Start: 06-11-2020 End: 06-11-2020 Echocardiography Cindy España LPN Work Phone: Start: 05-30-2020 End: 05-30-2020 MRI of pelvis Cindy España LPN Work Phone: Start: 04-22-2020 End: 05-08-2020 Ct lumbar spine w/o contrast material Zion Chahal MD Work Phone: Start: 04-18-2020 End: 04-22-2020 Radex spine lumbosacral minimum 4 views Zion Chahal MD Work Phone: Start: 03-15-2020 End: 03-18-2020 Radiologic exam chest 2 views Zion dial MD Work Phone: Start: 12-25-2019 End: 01-03-2020 Screening digital breast tomosynthesis bi Zion Chahal MD Work Phone: Start: 11-27-2019 End: 11-27-2019 Most recent diastolic blood pressure < 80 mm hg Zion Chahal MD Work Phone: Start: 11-27-2019 End: 11-27-2019 Most recent systolic blood pres>/equal 140 mm hg Zion Chahal MD Work Phone: Start: 11-28-2018 End: 12-07-2018 Radex spine lumbosacral minimum 4 views Zion Chahal MD Work Phone: Start: 11-10-2018 End: 2018 Screening mammography bi 2-view breast inc cad Zion Chahal MD Work Phone: Start: 07-13-2018 End: 07-13-2018 Body mass index documented Zion cunha MD Work Phone: Start: 07-13-2018 End: 07-13-2018 Flu immunize order/admin Zion jones MD Work Phone: Start: 03-22-2018 End: 03-22-2018 PPPS, subseq visit Zion Chahal MD Work Phone: Start: 03-22-2018 End: 03-22-2018 Pt falls assess docd w/o fall/injury past year Zion Chahal MD Work Phone: Start: 03-22-2018 End: 03-22-2018 Falls risk assessment documented Zion Chahal MD Work Phone: Start: 06-30-2017 End: 07-07-2017 Screening mammography bi 2-view breast inc cad Zion Chahal MD Work Phone: Start: 03-13-2017 End: 03-13-2017 Screening for malignant neoplasm of large intestine Dilcia Gonzalez LPN Start: 02-24-2017 End: 02-24-2017 Most recent diastol blood pres >/equal 90 mm hg Zion Chahal MD Work Phone: Start: 02-24-2017 End: 02-24-2017 Most recent systolic blood pres>/equal 140 mm hg Zion Chahal MD Work Phone: Start: 02-24-2017 End: 02-24-2017 Pos clin depres scrn f/u doc Zion fonseca MD Work Phone: Start: 02-24-2017 End: 02-24-2017 PPPS, subseq visit Zion Chahal MD Work Phone: Start: 02-24-2017 End: 02-24-2017 Pt falls assess docd w/o fall/injury past year Zion Chahal MD Work Phone: Start: 02-24-2017 End: 02-24-2017 Falls risk assessment documented Zion Chahal MD Work Phone: Start: 02-24-2017 End: 02-24-2017 Depression screen annual Zion jones MD Work Phone: Start: 12-16-2016 End: 12-16-2016 Reconstruction of joint Cindy España JOEY Work Phone: Start: 05-20-2016 End: 05-20-2016 Bone density scan Dilcia Carlos COOK Start: 05-11-2016 End: 05-21-2016 Dxa bone density study 1/> sites axial skel Zion Chahal MD Work Phone: Start: 05-11-2016 End: 05-21-2016 Mammogram, screening Zion Chahal MD Work Phone: Start: 02-28-2016 End: 02-28-2016 Ophthalmic examination and evaluation Dilcia Gonzalez JOEY Start: 02-25-2016 End: 02-25-2016 Colonoscopy Cindy España JOEY Work Phone: Start: 08-07-2015 End: 08-07-2015 PPPS, subseq visit Zion Chahal MD Work Phone: Start: 08-06-2014 End: 11-26-2015 Dxa bone density study 1/> sites axial tash Chahal MD Work Phone: Start: 08-06-2014 End: 08-06-2014 PPPS, subseq visit Zion Chahal MD Work Phone: Start: 07-11-2014 End: 11-20-2015 Mammogram, screening Zion Chahal MD Work Phone: Start: 12-11-2013 End: 12-15-2013 Radex spine lumbosacral 2/3 views Zion Chahal MD Work Phone: Start: 08-09-2013 End: 09-07-2017 Mammogram, screening Zion Chahal MD Work Phone: Start: 08-10-2012 End: 08-10-2012 Dxa bone density study 1/> sites axial tash Chahal MD Work Phone: Start: 08-10-2012 End: 08-10-2012 Mammogram, screening Zion Chahal MD Work Phone: Start: 02-12-2012 End: 02-12-2012 PPPS, subseq visit Cindy Taco COOK Work Phone: Start: 02-12-2012 End: 02-12-2012 Screening test visual acuity quantitative bilat Zion Chahal MD Work Phone: Start: 02-12-2012 End: 02-19-2012 [facility] real time w/image limited Zion Chahal MD Work Phone: Start: 08-03-2011 End: 08-05-2011 Mammogram, screening Zion Chahal MD Work Phone: Start: 06-29-2011 End: 06-29-2011 Promethazine hcl injection Zion cunha MD Work Phone: Start: 06-29-2011 End: 06-29-2011 Iv infusion hydration initial 31 min-1 hour Zion Chahal MD Work Phone: Start: 06-29-2011 End: 10-14-2011 Radex cplx motion bdy sctj oth/thn urograpy uni Zion Chahal MD Work Phone: Start: 07-16-2010 End: 08-18-2010 Mammogram, screening Yamilka Reyes PA-C Work Phone: Start: 08-30-1979 End: 08-30-1979 Total hysterectomy Cindy Taco [employer] Work Phone: Start: 08-30-1965 End: 08-30-[facility] [employer] Work Phone: Anaerobic microbial culture Dr. Zion Chahal Work Phone: H/O: hysterectomy Dilcia K eith [employer] H/O: hysterectomy Dilcia K eith [employer] H/O: hysterectomy Cindy Beac hy [employer] Work Phone: History of placement of stent for coronary artery disease S/P coronary artery stent placement Dr. Zion Chahal Work Phone: Comment on above: mid to proximal RCA 11/26/22 [facility]. Investigation of tra nsfusion reaction Dr. Zion Chahal Work Phone: Measurement of occul t blood in stool specimen using immunoassay Dr. Zion Chahal Work Phone: Microbial culture, routine D r. Zion Chahal Work Phone: Microscopic examinat ion of cervical Papanicolaou smear Dilcia Gonzalez [employer] [facility] of [facility] Work Phone: Viral antigen assay Dr. Zion Chahal Work Phone: Cindy Cunningham Work Phone: Dilcia Gonzalez LPN Plan of Treatment Date Care Activity Detail Author Start: 04-26-[address] [address] [facility] Start: 02-22-2025 Screening mammography bi 2-view breast inc cad [employer] Start: 02-22-2025 Assay of free thyroxine [employer] Start: 02-22-2025 Assay of thyroid stimulating hormone tsh [employer] Start: 05-22-2024 [employer] Start: 03-31-2024 Basic metabolic panel calcium total [employer] Start: 02-24-2024 [employer] Start: 02-07-2024 [employer] Start: 01-21-2024 Screening mammography bi 2-view breast inc cad [employer] Start: 04-24-2023 Patient discharge [facility] Start: 04-23-2023 Following clinical pathway protocol [facility] Start: 04-23-2023 Assessment of risk of venous thromboembolism [facility] Start: 04-23-2023 Catheterization of vein [facility] Start: 04-23-2023 Incentive spirometry [facility] Start: 04-23-2023 Inhalation therapy procedure [facility] Start: 04-23-2023 Insertion of catheter into peripheral vein [facility] Start: 04-23-2023 Measuring intake and output [facility] Start: 04-23-2023 Oxygen therapy [facility] Start: 04-23-2023 Providing care according to standard [facility] Start: 04-23-2023 Provision of activity privileges [facility] Start: 04-23-2023 Referral to mother helper [facility] Start: 04-23-2023 Referral to service [facility] Start: 04-23-2023 [facility] Start: 04-23-2023 Admission procedure [facility] Start: 04-23-2023 Patient referral to [facility] Start: 03-05-2023 Control nasal hemorrhage anterior complex CONTROL OF NOSEBLEED [facility] Start: 02-05-2023 Patient referral to [facility] Start: 01-22-2023 Patient discharge [facility] Start: 01-21-2023 Care planning and problem solving actions [facility] Start: 01-21-2023 Patient referral [facility] Work Phone: Start: 01-21-2023 Following clinical pathway protocol [facility] Start: 01-21-2023 Cardiac monitoring [facility] Start: 01-21-2023 Cardiac rehabilitation - phase 1 [facility] Start: 01-21-2023 Cardiac rehabilitation - phase 2 [facility] Start: 01-21-2023 Notification of physician [facility] Start: 01-21-2023 Oxygen therapy [facility] Start: 01-21-2023 Patient discharge [facility] Start: 01-21-2023 Patient education [facility] Start: 01-21-2023 Provision of activity privileges [facility] Start: 01-21-2023 Pulse taking [facility] Start: 01-21-2023 Systemic arterial pressure monitoring [facility] Start: 01-21-2023 Taking patient vital signs [facility] Start: 01-21-2023 Vascular disease risk assessment [facility] Start: 01-21-2023 Vital signs measurements [facility] Start: 01-21-2023 Wound care [facility] Start: 01-21-2023 End: 01-21-2023 [facility] Start: 01-21-2023 Admission procedure [facility] Start: 01-21-2023 Assessment of risk of venous thromboembolism [facility] Start: 01-21-2023 Insertion of catheter into peripheral vein [facility] Start: 01-21-2023 Measuring intake and output [facility] Start: 01-21-2023 Providing care according to standard [facility] Start: 03-05-2022 Patient discharge [facility] Work Phone: Start: 03-04-2022 Consultation for treatment [facility] Work Phone: Start: 03-04-2022 Vacuum assisted skin closure [facility] Work Phone: Start: 03-04-2022 End: 03-04-2022 [facility] Work Phone: Start: 03-04-2022 [facility] Work Phone: Start: 03-03-2022 [facility] Work Phone: Start: 03-02-2022 [facility] Work Phone: Start: 03-01-2022 Catheterization of vein [facility] Work Phone: Start: 03-01-2022 [facility] Work Phone: Start: 02-28-2022 Referral to gastroenterology service [facility] Work Phone: Start: 02-28-2022 Administration of blood product [facility] Work Phone: Start: 02-27-2022 Consultation [facility] Work Phone: Start: 02-26-2022 Measuring intake and output [facility] Work Phone: Start: 02-26-2022 Provision of overbed trapeze [facility] Work Phone: Start: 02-26-2022 Ambulation therapy management [facility] Work Phone: Start: 02-26-2022 Application of device [facility] Work Phone: Start: 02-26-2022 Assessment of risk of venous thromboembolism [facility] Work Phone: Start: 02-26-2022 Catheterization of vein [facility] Work Phone: Start: 02-26-2022 Exercises [facility] Work Phone: Start: 02-26-2022 Following clinical pathway protocol [facility] Work Phone: Start: 02-26-2022 Incentive spirometry [facility] Work Phone: Start: 02-26-2022 Introduction of urinary catheter [facility] Work Phone: Start: 02-26-2022 Measuring intake and output [facility] Work Phone: Start: 02-26-2022 Neurovascular assessment [facility] Work Phone: Start: 02-26-2022 Patient education [facility] Work Phone: Start: 02-26-2022 Procedure discontinued [facility] Work Phone: Start: 02-26-2022 Provision of activity privileges [facility] Work Phone: Start: 02-26-2022 Referral to occupational therapist [facility] Work Phone: Start: 02-26-2022 Referral to service [facility] Work Phone: Start: 02-26-2022 Vital signs measurements [facility] Work Phone: Start: 02-26-2022 Wound care [facility] Work Phone: Start: 02-26-2022 End: 02-26-2022 [facility] Work Phone: Start: 02-26-2022 End: 02-26-2022 [facility] Work Phone: Start: 02-26-2022 Measuring intake and output [facility] Work Phone: Start: 02-26-2022 Measuring intake and output [facility] Work Phone: Start: 02-26-2022 Application of intermittent pneumatic compression device [facility] Work Phone: Start: 02-26-2022 Following clinical pathway protocol [facility] Work Phone: Start: 02-26-2022 Application of ice collar, cap or bag [facility] Work Phone: Start: 02-26-2022 Assessment of risk of venous thromboembolism [facility] Work Phone: Start: 02-26-2022 Bedrest [facility] Work Phone: Start: 02-26-2022 Consultation [facility] Work Phone: Start: 02-26-2022 Documentation procedure [facility] Work Phone: Start: 02-26-2022 Fall prevention [facility] Work Phone: Start: 02-26-2022 Insertion of catheter into peripheral vein [facility] Work Phone: Start: 02-26-2022 Neurovascular assessment [facility] Work Phone: Start: 02-26-2022 Patient education [facility] Work Phone: Start: 02-26-2022 Providing care according to standard [facility] Work Phone: Start: 02-26-2022 Referral to occupational therapist [facility] Work Phone: Start: 02-26-2022 Referral to service [facility] Work Phone: Start: 02-26-2022 Skin care [facility] Work Phone: Start: 02-26-2022 [facility] Work Phone: Start: 02-26-2022 Measuring intake and output [facility] Work Phone: Start: 02-26-2022 Verification routine [facility] Work Phone: Start: 02-26-2022 Admission procedure [facility] Work Phone: Start: 01-28-2022 Assay of triiodothyronine t3 free [facility] [facility] Start: 01-28-2022 Lipid panel [facility], [facility].; [facility] Acid fast bacilli culture [facility] Work Phone: Anaerobic microbial culture Anaerobic Cul ture [facility] Work Phone: Microbial culture, routine Wound Culture [facility] Work Phone: Mycobacterium sp ramone ntified in Unspecified specimen by Organism specific culture [facility] Work Phone: NM Heart Views W str ess and W radionuclide IV [facility] Patient Education [facility] Work Phone: Patient referral [facility] Work Phone: [place] Carotid arteries [facility] Immunizations Immunization Date Immunization Notes Care Provider Fa onelia 03-13-2024 zoster vaccine recombinant Zion Chahal MD Work Phone: [facility]; [facility] 07-21-2022 Seasonal, quadrivale nt, recombinant, injectable influenza vaccine, preservative free Dr. Zion Chahal MD Work Phone: [facility] 07-21-2022 Zion hoyt MD Work Phone: [facility]; [facility] 02-21-2022 Zion hoyt MD Work Phone: [facility]; [facility] 06-06-2021 Influenza High-Dose Quadrivalent Dr. Zion Chahal MD Work Phone: [facility] 06-06-2021 influenza, high dose seasonal, preservative-free Zion Chahal MD Work Phone: [facility]; [facility] 06-06-2021 Zion hoyt MD Work Phone: [facility]; [facility] 10-28-2020 Covid (Pfizer) Dr. Zion fonseca Work Phone: [facility] 10-16-2020 Zion hoyt MD Work Phone: [facility]; [facility] 09-25-2020 Zion hoyt MD Work Phone: [facility] 07-13-2018 influenza virus vaccine, unspecified formulation Zion Chahal MD Work Phone: [facility]; [facility] 07-13-2018 influenza, injectabl e, quadrivalent, preservative free Dr. Zion Chahal MD Work Phone: [facility] 07-13-2018 influenza, injectabl e, quadrivalent, contains preservative Zion Chahal MD Work Phone: [facility]; [facility] 06-17-[address] Zion Chahal Work Phone: [facility] 06-09-2016 Influenza, high dose seasonal Dr. Zion Chahal MD Work Phone: [facility] 08-07-2015 pneumococcal conjuga te vaccine, 13 valent Zion Chahal MD Work Phone: [facility]; [facility] 07-15-2015 varicella zoster imm une globulin Zion Chahal MD Work Phone: [facility]; [facility] 06-05-2015 influenza, injectabl e, quadrivalent, preservative free Dr. Zion Chahal MD Work Phone: [facility] 06-05-2015 influenza, seasonal, injectable iZon Chahal MD Work Phone: [facility]; [facility] 02-12-2012 pneumococcal Conjuga te, unspecified formulation Zion Chahal MD Work Phone: [facility]; [facility] 02-12-2012 pneumococcal polysaccharide vaccine, 23 valent Zion Chahal MD Work Phone: [facility]; [facility] 06-20-2011 influenza, seasonal, injectable Zion Chahal MD Work Phone: [facility], [facility].; [facility], [facility]. 05-24-2009 influenza, injectabl e, quadrivalent, preservative free Dr. Zion Chahal MD Work Phone: [facility] Payers Date Payer Category Payer Self-pay [id number] 2009 Medicare [id number] Unknown [id number] 2.16.8 [id number] Unknown [id number] 2.16.8 40.1.244808.3.579.2.462 Unknown [id number] 2.16.8 40.1.459291.3.579.2.462 Unknown [id number] 2.16.8 40.1.150980.3.579.2.462 Unknown [id number] 2.16.8 40.1.049564.3.579.2.462 Unknown [id number] 2.16.8 40.1.965865.3.579.2.462 Unknown [id number] 2.16.8 40.1.714559.3.579.2.462 Unknown [id number] 2.16.8 40.1.292598.3.579.2.462 Unknown [id number] 2.16.8 40.1.992748.3.579.2.462 Unknown [id number] 2.16.8 40.1.162530.3.579.2.462 Unknown [id number] 2.16.8 40.1.318162.3.579.2.462 Unknown [id number] 2.16.8 40.1.862359.3.579.2.462 Unknown [id number] 2.16.8 40.1.106821.3.579.2.462 Unknown [id number] 2.16.8 40.1.554667.3.579.2.462 Unknown [id number] 2.16.8 40.1.637575.3.579.2.462 Unknown [id number] 2.16.8 40.1.247711.3.579.2.462 Unknown [id number] 2.16.8 40.1.919800.3.579.2.462 Unknown [id number] 2.16.8 40.1.344938.3.579.2.462 Unknown [id number] 2.16.8 40.1.119609.3.579.2.462 Social History Date Type Detail Facility Start: 02-26-2022 End: 05-21-2023 Tobacco smoking status DCIS Unknown if ever smoked [facility] Start: 02-11-2021 Homeless [facility] Start: 02-11-2021 Non-smoker [facility] Start: 1940 Sex Assigned At Female [facility] Retired. [employer], [employer]. [employer]. Former smoker. [employer] Start: 06-05-2024 Tobacco smoking stat [facility] Ex-smoker (finding) [facility] Medical Equipment Procedure Code Equipment Code Equipment Origin al Text Equipment Identifier Dates Revision of uncemented total hip replacement [employer] 2.0 BEAD CABLE FDA Start: 02-26-2022 Revision of uncemented total hip replacement DALL MILES 2.0 BEAD CABLE FDA Start: 02-26-2022 Revision of uncemented total hip replacement [employer] 2.0 BEAD CABLE FDA Start: 02-26-2022 Revision of uncemented total hip replacement [employer] FDA Start: 02-26-2022 Revision of uncemented total hip replacement ([id number]) Internal orthopaedic fixation system, plate/screw, non-bioabsorbable, sterile ([id number] FDA Start: 02-26-2022 Revision of uncemented total hip replacement ([id number]) Ceramic femoral head prosthesis ()[id number] FDA Start: 02-26-2022 Revision of uncemented total hip replacement ([id number]) Acetabular shell ()[id number] FDA Start: 02-26-2022 Revision of uncemented total hip replacement ([id number]) Press-fit femoral stem prosthesis ()[id number] FDA Start: 02-26-2022 Revision of uncemented total hip replacement ([id number]) Non-constrained polyethylene acetabular liner ()[id number] FDA Start: 02-26-2022 Revision of uncemented total hip replacement DALL MILES 2.0 BEAD CABLE FDA Start: 02-26-2022 Revision of uncemented total hip replacement DALL MILES 2.0 BEAD CABLE FDA Start: 02-26-2022 Revision of uncemented total hip replacement DALL MILES 2.0 BEAD CABLE FDA Start: 02-26-2022 Revision of uncemented total hip replacement [employer] FDA Start: 02-26-2022 Revision of uncemented total hip replacement DALL MILES 2.0 BEAD CABLE FDA Start: 02-26-2022 Revision of uncemented total hip replacement DALL MILES 2.0 BEAD CABLE FDA Start: 02-26-2022 Revision of uncemented total hip replacement DALL MILES 2.0 BEAD CABLE FDA Start: 02-26-2022 Revision of uncemented total hip replacement [employer] [facility] FDA Start: 02-26-2022 Revision of uncemented total hip replacement DALL MILES 2.0 BEAD CABLE FDA Start: 02-26-2022 Revision of uncemented total hip replacement DALL MILES 2.0 BEAD CABLE FDA Start: 02-26-2022 Revision of uncemented total hip replacement DALL MILES 2.0 BEAD CABLE FDA Start: 02-26-2022 Revision of uncemented total hip replacement [employer] FDA Start: 02-26-2022 Revision of uncemented total hip replacement DALL MILES 2.0 BEAD CABLE FDA Start: 02-26-2022 Revision of uncemented total hip replacement DALL MILES 2.0 BEAD CABLE FDA Start: 02-26-2022 Revision of uncemented total hip replacement DALL MILES 2.0 BEAD CABLE FDA Start: 02-26-2022 Revision of uncemented total hip replacement [employer] FDA Start: 02-26-2022 Revision of uncemented total hip replacement DALL MILES 2.0 BEAD CABLE FDA Start: 02-26-2022 Revision of uncemented total hip replacement DALL MILES 2.0 BEAD CABLE FDA Start: 02-26-2022 Revision of uncemented total hip replacement DALL MILES 2.0 BEAD CABLE FDA Start: 02-26-2022 Revision of uncemented total hip replacement [employer] FDA Start: 02-26-2022 Revision of uncemented total hip replacement DALL MILES 2.0 BEAD CABLE FDA Start: 02-26-2022 Revision of uncemented total hip replacement DALL MILES 2.0 BEAD CABLE FDA Start: 02-26-2022 Revision of uncemented total hip replacement DALL MILES 2.0 BEAD CABLE FDA Start: 02-26-2022 Revision of uncemented total hip replacement [employer] FDA Start: 02-26-2022 Revision of uncemented total hip replacement DALL MILES 2.0 BEAD CABLE FDA Start: 02-26-2022 Revision of uncemented total hip replacement DALL MILES 2.0 BEAD CABLE FDA Start: 02-26-2022 Revision of uncemented total hip replacement DALL MILES 2.0 BEAD CABLE FDA Start: 02-26-2022 Revision of uncemented total hip replacement [employer] [facility] FDA Start: 02-26-2022 Revision of uncemented total hip replacement DALL MILES 2.0 BEAD CABLE FDA Start: 02-26-2022 Revision of uncemented total hip replacement DALL MILES 2.0 BEAD CABLE FDA Start: 02-26-2022 Revision of uncemented total hip replacement DALL MILES 2.0 BEAD CABLE FDA Start: 02-26-2022 Revision of uncemented total hip replacement [employer] [facility] FDA Start: 02-26-2022 Revision of uncemented total hip replacement DALL MILES 2.0 BEAD CABLE FDA Start: 02-26-2022 Revision of uncemented total hip replacement DALL MILES 2.0 BEAD CABLE FDA Start: 02-26-2022 Revision of uncemented total hip replacement DALL MILES 2.0 BEAD CABLE FDA Start: 02-26-2022 Revision of uncemented total hip replacement [employer] FDA Start: 02-26-2022 Revision of uncemented total hip replacement DALL MILES 2.0 BEAD CABLE FDA Start: 02-26-2022 Revision of uncemented total hip replacement DALL MILES 2.0 BEAD CABLE FDA Start: 02-26-2022 Revision of uncemented total hip replacement DALL MILES 2.0 BEAD CABLE FDA Start: 02-26-2022 Revision of uncemented total hip replacement [employer] FDA Start: 02-26-2022 Revision of uncemented total hip replacement DALL MILES 2.0 BEAD CABLE FDA Start: 02-26-2022 Revision of uncemented total hip replacement DALL MILES 2.0 BEAD CABLE FDA Start: 02-26-2022 Revision of uncemented total hip replacement DALL MILES 2.0 BEAD CABLE FDA Start: 02-26-2022 Revision of uncemented total hip replacement [employer] FDA Start: 02-26-2022 Revision of uncemented total hip replacement D[employer] MILES 2.0 BEAD CABLE FDA Start: 02-26-2022 Revision of uncemented total hip replacement DALL MILES 2.0 BEAD CABLE FDA Start: 02-26-2022 Revision of uncemented total hip replacement DALL MILES 2.0 BEAD CABLE FDA Start: 02-26-2022 Revision of uncemented total hip replacement [employer] FDA Start: 02-26-2022 Revision of uncemented total hip replacement D[employer] MILES 2.0 BEAD CABLE FDA Start: 02-26-2022 Revision of uncemented total hip replacement DALL MILES 2.0 BEAD CABLE FDA Start: 02-26-2022 Revision of uncemented total hip replacement DALL MILES 2.0 BEAD CABLE FDA Start: 02-26-2022 Revision of uncemented total hip replacement [employer] FDA Start: 02-26-2022 Revision of uncemented total hip replacement DALL MILES 2.0 BEAD CABLE FDA Start: 02-26-2022 Revision of uncemented total hip replacement DALL MILES 2.0 BEAD CABLE FDA Start: 02-26-2022 Revision of uncemented total hip replacement DALL MILES 2.0 BEAD CABLE FDA Start: 02-26-2022 Revision of uncemented total hip replacement [employer] FDA Start: 02-26-2022 Drug-eluting coronary artery stent, [id number]-hu lymer-coated [id number] FDA Start: 01-21-2023 Goals Date Patient Goal Desired Activity /State Functional Status Date Assessment Result Facility 04-24-2023 Functional status Patient Activi ty Ambulates;Up ad mirella [facility] Work Phone: 04-24-2023 Functional status Activity Ability Indepe ndent [facility] Work Phone: 01-22-2023 Functional status Ambulates;Bathroom Priv ilege [facility] Work Phone: 03-05-2022 Functional status Chair [facility] Work Phone: Mental Status Date Assessment Result Facility 04-24-2023 Cognitive function Voice/Name [facility] Work Phone: 01-22-2023 Cognitive function Voice/Name [facility] Work Phone: 03-05-2022 Cognitive function Voice/Name [facility] Work Phone: Clinical Notes 01-21-2023 to 04-02-2024 Note Date & Type Note Facility 04-02-2024 Note [facility] Medical Records Department [address] [place] [address] Discharge Summary 04/02/24 1145 MR#: [id number] Acct: [id number] Name: DOMONIQUE MARI Rep #: [id number] : 1940 83 From: Rell Ortega DO PCP: Dr. Zion Chahal MD Status:DIS IN Location: [place] [id number] Providers Date of Admission: 04/01/24 Date of Discharge: 04/02/24 Primary Care Physician: Dr. Zion Chahal MD Reason For Visit: COVID 19 Diagnosis Discharge Diagnosis (1) COVID-19: Status: Acute Code(s): U07.1 - COVID-19 (2) Respiratory insufficiency: Status: Acute Code(s): R06.89 - Other abnormalities of breathing (3) Hyponatremia: Status: Acute Code(s): E87.1 - Hypo-osmolality and hyponatremia Medications at Discharge Home Medications levothyroxine 112 mcg tablet 112 mcg PO QODAY hypothroidism 02/17/20 escitalopram oxalate 20 mg tablet 20 mg PO DAILY anxiety 07/29/21 apixaban 2.5 mg tablet (Eliquis) See Rx Instructions .Route .COMPLEX blood thinner #180 tabs 11/01/23 carvedilol 12.5 mg tablet 12.5 mg PO .COMPLEX heart rate #180 tabs 02/09/24 carvedilol 25 mg tablet 25 mg PO .COMPLEX waiting on mail in RX #180 tabs 02/09/24 aspirin 81 mg chewable tablet (Arlet Chewable Low Dose Aspirin) 1 tab PO DAILY heart health 02/12/24 alendronate 70 mg tablet 70 mg PO TU bone health 03/03/24 amiodarone 200 mg tablet 200 mg PO DAILY heart 30 days #60 tabs 03/03/24 potassium chloride 10 mEq tablet,extended release 20 meq (2 x 10 mEq) PO DAILY supplement #0 tabs 03/06/24 sacubitril 24 mg-valsartan 26 mg tablet (Entresto) 1 tab PO BID #180 tabs 03/13/24 levothyroxine 100 mcg tablet 100 mcg PO QODAY thyroid 03/31/24 atorvastatin 40 mg tablet 40 mg PO QHS 90 days #90 tabs 04/02/24 dexamethasone 0.5 mg tablet 1 mg (2 x 0.5 mg) PO DAILY 3 days #6 tabs 04/02/24 Hospital Course Operations None Procedures - (Chest x-ray) Summary of Care Provided Minutes Spent on Discharge: 35 Hospital Course: Patient is an 83-year-old female who presented to [facility] ED on 04/01/2024 with worsening shortness of breath and fevers. Short hospital course as noted below. Discharged home with no therapy needs in stable condition on 04/02. 1. COVID-19 infection with mild hypoxia in setting of chronic pulmonary fibrosis ??? Positive for COVID-19 in the ED. Symptom onset 03/29. Chest x-ray on admit appeared unchanged from baseline. Mildly hypoxic in the ED. Significant improvement by afternoon of day of admission after doses of steroids, a breathing treatment and IV fluids. Stable on room air on hospital day 2, completed oxygen ambulatory testing and did not need any oxygen on discharge. Treated with Decadron 2 mg daily during hospitalization, will continue Decadron reduced dose on discharge with plan for 5- day course total. Treated with IV remdesivir while inpatient, no need for this on discharge. No concern for bacterial pneumonia, no need for antibiotics either during admission or on discharge. 2. Mild acute debility ??? PT/OT/case management followed. Good therapy scores during hospitalization, stable for discharge home with no therapy needs. 3. Hyponatremia, improving ??? Sodium 126 on admit, baseline is in normal range. Suspect due to recent poor p.o. intake and dehydration in setting of COVID-19 infection. Given some IV fluids on admission with improvement. Sodium 132 on day of discharge. Encouraged good p.o. intake on discharge. 4. Paroxysmal A-fib, combined CHF, severe aortic stenosis, history of CAD with stenting ??? Stable, not in heart failure exacerbation. In normal sinus rhythm since admission. Echo in 10/23 showed EF 40 to 45% with severe aortic stenosis. Has history of stenting back in 2022. Continue home amiodarone, Coreg, Entresto, aspirin, statin and Eliquis. Chronic medical conditions: ??? Chronic anemia: Hemoglobin at baseline around 10 on admit, stable. ??? Depression: Stable. Continue home escitalopram. ??? Hypothyroidism: Continue home Synthroid. ??? History of femur fracture: Continue alendronate on discharge. *Patient notably was admitted under inpatient status for COVID infection with hypoxia. She improved more quickly than anticipated and was discharged on hospital day 2. Total clinical time spent by myself addressing the patient's medical issues, reviewing all the data, and collaborating with patient's care team: 35 minutes. Physical Exam Const alert, oriented x3, no apparent distress and average body habitus Constitutional Narrative: Pleasant elderly female, sitting up comfortably in bedside chair, conversing normally, in no acute distress. General Appearance: cooperative and comfortable HEENT normocephalic, head/scalp atraumatic, hearing grossly normal bilaterally, nasal mucous membranes and turbinates normal and moist oral mucous membranes Eyes PE (more content not included)... [facility] 04-24-2023 Consult note Note Date/Time April 24, 2023 11:56am [facility] Medical Records Department [address] [place] [address] Consultation - Cardiology 04/24/23 1148 MR#: [id number] Acct: [id number] Name: DOMONIQUE MARI Rep #:[id number] : 1940 82 From: Treva Mariee MD PCP: Dr. Zion Chahal MD Status:A DM DORA Location: [place] [address] Assessment & Plan Assessment/Plan (1) Ventricular tachycardia: PLAN: Nonsustained ventricular tachycardia. Awaiting echocardiogram. Increase carvedilol to 37.5 mg twice daily. If LV function is normal, then recommend Lexiscan stress Myoview as outpatient. 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 Continue Plavix. On Eliquis. (3) PAF (paroxysmal atrial fibrillation): PLAN: Presently normal sinus rhythm. Continue apixaban. (4) Essential (primary) hypertension: PLAN: Blood pressure above goal. Increase carvedilol to 37.5 mg twice daily. (5) Carotid bruit: PLAN: Soft left carotid bruit. Recommend Doppler ultrasound as outpatient. (6) Aortic stenosis: PLAN: History of mild aortic valve stenosis. Will review echo. HPI Consult Data Date of Consult: 04/24/23 HPI Narrative Reason for Consultation: NSVT HPI Narrative: DOMONIQUE MARI, is a 82 F who presents this patient has past medical history significant for NSTEMI in October of this year. This was in postop setting of a cholecystectomy. She was in [facility] at the time. Coronary angiography was performed and she had intervention done to her RCA with drug-eluting stents. Subsequently in December, she has had staged intervention done to her left anterior descending artery. LV systolic function normal. Patient was at the cardiac rehab yesterday when she was noted to have a 10 beat run of nonsustained VT. She was asymptomatic with it. She was sent to the emergency room and admitted for observation. Patient denies any chest pains or shortness of breath either at rest or with exertion. Denies any palpitations. No lightheadedness or dizziness. No syncope or presyncope. [facility] Medical History Anemia Arthritis Atherosclerosis of coronary artery of sioux heart without angina pectoris Compression fracture Depression Essential (primary) hypertension Myocarditis Non-ischemic cardiomyopathy Nonrheumatic aortic (valve) stenosis Nonsustained paroxysmal ventricular tachycardia PAF (paroxysmal atrial fibrillation) Premature ventricular beats Right leg DVT [employer] Home Medications levothyroxine 112 mcg tablet 112 mcg PO DAILY PRN 02/17/20 [History Last Taken 04/21/23] escitalopram oxalate 20 mg tablet 20 mg PO DAILY 07/29/21 [History Last Taken 04/23/23] levothyroxine 100 mcg tablet 100 mcg PO .PRUDENCIO MORILLO,SAT Fill as a courtesy until pt returns to [place] #36 tabs 12/15/22 [Rx Last Taken 04/22/23] apixaban 2.5 mg tablet (Eliquis) 2.5 mg PO BID #180 tabs 01/04/23 [Rx Last Taken 04/23/23] atorvastatin 80 mg tablet 80 mg PO QHS #90 tabs 01/04/23 [Rx Last Taken 04/22/23] clopidogrel 75 mg tablet 75 mg PO DAILY #90 tabs 02/26/23 [Rx Last Taken 04/23/23] losartan 50 mg tablet 50 mg PO BID #60 tabs 04/09/23 [Rx Last Taken 04/23/23] carvedilol 25 mg tablet 25 mg PO BID this is a dose increase #180 tabs 04/23/23 [Rx Last Taken 04/23/23] Allergy/AdvReac Type Severity Reaction Status Date / Time imiquimod [From Aldara] Allergy Unknown Verified 03/05/23 20:33 Penicillins [PCN] Allergy Anaphylaxis Verified 03/05/23 20:33 amlodipine AdvReac Intermediate swelling Verified 03/05/23 20:33 in feet and legs ciprofloxacin [From Cipro] AdvReac Other Verified 03/05/23 20:33 furosemide AdvReac low saodium Verified 03/05/23 20:33 hydrochlorothiazide AdvReac hyponatremi Verified 03/05/23 20:33 a magnesium AdvReac Nausea Verified 03/05/23 20:33 prednisone AdvReac Upset Verified 03/05/23 20:33 Stomach Family History Mother Heart disease Father Heart disease Surgical History History of cataract surgery History of coronary artery stent placement (01/21/23) History of hysterectomy History of left heart catheterization (02/19/11) History of right hip replacement Social History household members: none Smoking Status: Former smoker how long ago did patient quit smokin years ago alcohol intake: current alcohol intake frequency: holidays/special occasions only substance use type: does not use caffeine: Yes Type: coffee Number of servings: 1 Physical Exam Narrative Comfortable. No distress. Heart sounds 1 and 2 are normal. chest clear to auscultation bilaterally. Alert oriented x3. No ankle edema. Soft left carotid bruit is audible. Risk Stratification Risk Stratification Applicable: No Objective Data Vital Signs: Vital Signs Temp Pulse Resp BP Pulse Ox O2 Del Method 97.8 F 65 16 160/71 H 96 Room Air 04/24/23 09:15 04/24/23 09:15 04/24/23 09:15 04/24/23 09:15 04/24/23 09:15 04/24/23 09:15 Oxygen Delivery Method Room Air Weight: 119 lb 11.376 oz Body Mass Index (BMI) 21.9 Intake & Output: Intake and Output for Last 24 Hours 04/22/23 04/23/23 04/24/23 23:59 23:59 23:59 Intake Total 354 / 354 Balance 354 / 354 Lab / Micro Data 04/24/23 06:40 04/24/23 06:40 Labs: Laboratory Results - last 24 hr 04/23/23 17:40: WBC 5.0, RBC 3.51 L, Hgb 10.5 L, Hct 32.7 L, MCV 93.2, MCH 29.9,MCHC 32.1, RDW Std Deviation 48.0 H, RDW Coeff of Tonie 14.3, Plt Count 203, MPV 10.7, Immature Gran % (Auto) 0.400, Neut % (Auto) 65.8, Lymph % (Auto) 22.1, [place] % (Auto) 9.7, Eos % (Auto) 1.8, Baso % (Auto) 0.2, Absolute Neuts (auto) 3.3, Absolute Lymphs (auto) 1.10, Nucleated RBC % 0, Sodium 130 L, Potassium 3.9, Chloride 98, Carbon Dioxide 27.0, Anion Gap 5, BUN 15, Creatinine 0.87, Estim Creat Clear Calc 38.07, Est GFR (MDRD) Af Amer 80, Est GFR (MDRD) Non-Af 66, BUN/Creatinine Ratio 17.3, Glucose 101, Calcium 9.0, Magnesium 1.8, TroponinI High Sens 16 04/23/23 20:20: Troponin I High Sens 20 04/23/23 23:57: Troponin I High Sens 16 04/24/23 06:40: WBC 3.7 L, RBC 3.32 L, Hgb 10.0 L, Hct 30.7 L, MCV 92.5, MCH 30.1, MCHC 32.6, RDW Std Deviation 49.1 H, RDW Coeff of Tonie 14.4, Plt Count 195,MPV 10.5, Immature Gran % (Auto) 0.300, Neut % (Auto) 55.0, Lymph % (Auto) 29.3,[place] % (Auto) 12.6 H, Eos % (Auto) 2.5, Baso % (Auto) 0.3, Absolute Neuts (auto)2.0, Absolute Lymphs (auto) 1.07, Nucleated RBC % 0, Sodium 133 L, Potassium 4.0, Chloride 99, Carbon Dioxide 29.0, Anion Gap 5, BUN 15, Creatinine 0.83, Estim Creat Clear Calc 39.91, Est GFR (MDRD) Af Amer 85, Est GFR (MDRD) Non-Af 70, BUN/Creatinine Ratio 18.2, Glucose 91, Calcium 8.4 L, Phosphorus 3.4, Magnesium 2.3, Total Bilirubin 0.40, AST 24, ALT 32, Alkaline Phosphatase 58, Total Protein 6.6, Albumin 3.1 L, Globulin 3.5, Albumin/Globulin Ratio 0.9, TSH 2.28 Rhythm Strip Rhythm Strip: Sinus Rhythm Cardiology Labs/Tests 04/23/23 17:40: WBC 5.0, RBC 3.51 L, Hgb 10.5 L, Hct 32.7 L, MCV 93.2, MCH 29.9,MCHC 32.1, Plt Count 203, MPV 10.7, Immature Gran % (Auto) 0.400, Neut % (Auto) 65.8, Lymph % (Auto) 22.1, [place] % (Auto) 9.7, Eos % (Auto) 1.8, Baso % (Auto) 0.2, Absolute Neuts (auto) 3.3, Nucleated RBC % 0, Sodium 130 L, Potassium 3.9, Chloride 98, Carbon Dioxide 27.0, Anion Gap 5, BUN 15, Creatinine 0.87, Est GFR (MDRD) Af Amer 80, Est GFR (MDRD) Non-Af 66, BUN/Creatinine Ratio 17.3, Glucose 101, Calcium 9.0, Magnesium 1.8 04/24/23 06:40: WBC 3.7 L, RBC 3.32 L, Hgb 10.0 L, Hct 30.7 L, MCV 92.5, MCH 30.1, MCHC 32.6, Plt Count 195, MPV 10.5, Immature Gran % (Auto) 0.300, Neut % (Auto) 55.0, Lymph % (Auto) 29.3, [place] % (Auto) 12.6 H, Eos % (Auto) 2.5, Baso %(Auto) 0.3, Absolute Neuts (auto) 2.0, Nucleated RBC % 0, Sodium 133 L, Potassium 4.0, Chloride 99, Carbon Dioxide 29.0, Anion Gap 5, BUN 15, Creatinine0.83, Est GFR (MDRD) Af Amer 85, Est GFR (MDRD) Non-Af 70, BUN/Creatinine Ratio 18.2, Glucose 91, Calcium 8.4 L, Phosphorus 3.4, Magnesium 2.3, Total Bilirubin 0.40 Rhythm: Rhythm strip from cardiac rehab shows a 10 beat run of nonsustained VT. Normal sinus rhythm here in the hospital. EKG: Sinus rhythm. No ischemic changes. ECHO: Stress Test: Cardiac Cath: PCI: CT Surgery: Holter monitor: EPS: PPM: CXR: Chest CT Scan: Radiography Diagnostic Testing: Radiology Impression Chest X-Ray 04/23/23 17:30 IMPRESSION: Cardiomegaly without radiographic evidence of acute cardiopulmonary disease. Electronically Signed: Jesse Delgado MD at 17:57 EDT , 04/24/23 1156 <Electronically signed by Treva Mariee MD> Cosigner Signature (if applicable): CC: Dr. Treva Mariee MD; Dr. Zion Chahal MD; Dr. Elsa Coleman DO~ Signed [facility] Work Phone: [phone]) 472-338008-26-2023 History and physical note Author Elsa Coleman [facility] April 23, 2023 11:52pm Note Date/Time April 23, 2023 7: 57pm [facility] Medical Records Department [address] [place] [address] H&P Exam - Hospitalist 04/23/231954 MR#: [id number] Acct: [id number] Name: DOMONIQUE MARI Rep #:[id number] : 1940 82 From: Elsa Coleman DO PCP: Dr. Zion Chahal MD Status:A DM DORA Location: [place] [address] HPI - General General Date of Admission: 04/23/23 Date of Service: 04/23/23 Chief Complaint: Fatigue/Lightheadedness HPI Narrative DOMONIQUE MARI, is a 82 F who presented to the emergency department at [facility] with fatigue and lightheadedness. Patient was evaluated at [facility] in [place] in October 2022 with complaints of right upper quadrant pain that radiated to her back and new onset A-fib. She underwent cardiac catheterization at that time which demonstrated an EF of 55 to 60% and the left anterior descending coronary artery with moderate calcific diffuse disease at 40 to 50% and tandem focal lesion with 60 to 80% narrowing. She had a chronically occluded did first diagonal with long subtotal proximal and mid vessel segments and SIMON II flow. Staged procedure was recommended and she wanted to come home to have this done. She underwent successful LEOBARDO to the proximal LAD on 01/21/2023 and had been doing well and undergoing cardiac rehab. Today while she was at cardiac rehab she was on one of the exercise machine and and had significant fatigue and while she was there her monitor showed a 10 beatrun of nonsustained VT. It terminated spontaneously and the patient had no chest pain with it. Patient reported that her only symptom with that was fatigue and she was exerting herself at the time. At the time of my evaluation she indicated she was feeling fine and back to her baseline. [employer] was contacted by the emergency department and they recommended admission for observation on telemetry and an echocardiogram. Vital signs on presentation showed temperature of 97.8, blood pressure is 187/83, respiratory rate 18 oxygen saturations were 96% on room air. CBC shows a chronic stable anemia with a hemoglobin of 10.5 but was otherwise unremarkable. Chemistry panel shows mild hyponatremia at 130 but is otherwise unremarkable. Initial troponin was 16. EKG demonstrated normal sinus rhythm without any ST-T wave changes concerning for acute ischemia and normal intervals. Chest x-ray is unremarkable. [facility] Medical History Anemia Arthritis Atherosclerosis of coronary artery of [place] heart without angina pectoris Compression fracture Depression Essential (primary) hypertension Myocarditis Non-ischemic cardiomyopathy Nonrheumatic aortic (valve) stenosis Nonsustained paroxysmal ventricular tachycardia PAF (paroxysmal atrial fibrillation) Premature ventricular beats Right leg DVT Solar elastosis Home Medications levothyroxine 112 mcg tablet 112 mcg PO DAILY PRN 02/17/20 [History Last Taken 04/21/23] escitalopram oxalate 20 mg tablet 20 mg PO DAILY 07/29/21 [History Last Taken 04/23/23] levothyroxine 100 mcg tablet 100 mcg PO .PRUDENCIO MORILLO SAT Fill as a courtesy until pt returns to [place] #36 tabs 12/15/22 [Rx Last Taken 04/22/23] apixaban 2.5 mg tablet (Eliquis) 2.5 mg PO BID #180 tabs 01/04/23 [Rx Last Taken 04/23/23] atorvastatin 80 mg tablet 80 mg PO QHS #90 tabs 01/04/23 [Rx Last Taken 04/22/23] clopidogrel 75 mg tablet 75 mg PO DAILY #90 tabs 02/26/23 [Rx Last Taken 04/23/23] losartan 50 mg tablet 50 mg PO BID #60 tabs 04/09/23 [Rx Last Taken 04/23/23] carvedilol 25 mg tablet 25 mg PO BID this is a dose increase #180 tabs 04/23/23 [Rx Last Taken 04/23/23] Allergy/AdvReac Type Severity Reaction Status Date / Time imiquimod [From Aldara] Allergy Unknown Verified 03/05/23 20:33 Penicillins [PCN] Allergy Anaphylaxis Verified 03/05/23 20:33 amlodipine AdvReac Intermediate swelling Verified 03/05/23 20:33 in feet and legs ciprofloxacin [From Cipro] AdvReac Other Verified 03/05/23 20:33 furosemide AdvReac low saodium Verified 03/05/23 20:33 hydrochlorothiazide AdvReac hyponatremi Verified 03/05/23 20:33 a magnesium AdvReac Nausea Verified 03/05/23 20:33 prednisone AdvReac Upset Verified 03/05/23 20:33 Stomach Family History Mother Heart disease Father Heart disease Surgical History History of cataract surgery History of coronary artery stent placement (01/21/23) History of hysterectomy History of left heart catheterization (02/19/11) History of right hip replacement Social History household members: none Smoking Status: Former smoker how long ago did patient quit smokin years ago alcohol intake: current alcohol intake frequency: holidays/special occasions only substance use type: does not use caffeine: Yes Type: coffee Number of servings: 1 ROS Constitutional Constitutional: Denies anorexia, change in weight, chills, fatigue, fever(s), malaise, night sweats, weakness or other Eyes Eyes: Denies blurry vision, change in eye color, change in vision, discharge from eye(s), double vision, erythema, eye pain, loss of vision or other ENT HEENT: Denies abnormal hearing, dysphagia, ear pain, epistaxis, headache(s), hearing loss, nasal congestion, nasal discharge, post nasal drip, sinus pressure, sore throat or other Cardiovascular Cardiovascular: Denies chest pain, claudication, dyspnea on exertion, edema, lightheadedness, orthopnea, palpitations, paroxysmal nocturnal dyspnea, rapid heart rate, syncope or other Respiratory/Chest Respiratory/Chest: Denies cough, dyspnea, excessive phlegm production, hemoptysis, productive cough, shortness of breath at rest, shortness of breath with exertion, wheezing or other Gastrointestinal Gastrointestinal: Denies abdominal pain, coffee ground emesis, constipation, diarrhea, dyspepsia, hematemesis, hematochezia, loose stools, melena, nausea, vomiting or other Genitourinary Genitourinary: Denies burning urination, difficulty urinating, dysuria, hematuria, nocturia, urinary frequency, urinary hesitancy, urinary incontinence,urinary urgency or other Musculoskeletal Musculoskeletal: Denies arthralgias, back pain, joint pain, joint stiffness, joint swelling, myalgias, neck pain or other Neurologic Neurologic: Denies abnormal gait, abnormal speech, confusion, disequilibrium, dizziness, focal weakness, headache(s), numbness, paresthesias, seizure-like activity, seizures, syncope, tingling, tremor(s) or other Psychiatric Psychiatric: Denies anxiety, depression, homicidal ideation, suicidal ideation or other Endocrine Endocrinology: Denies change in body appearance, cold intolerance, excessive sweating, heat intolerance, polydipsia, polyuria or other Hematologic/Lymphatic Hematologic/Lymphatic: Denies anemia, easy bleeding, easy bruising, lymphadenopathy or other Allergic/Immunologic Allergic/Immunologic: Denies rhinitis, hives, eczemia, asthma or other Vital Signs Vital Signs Vital Signs: 04/23/23 14:55 04/23/23 16:31 04/23/23 16:55 Temperature 97.8 F Temperature Source Temporal Pulse Rate 74 Respiratory Rate 18 Respiratory Effort Normal Non-Labored Respiratory Pattern Normal Blood Pressure 187/83 H 207/85 H Blood Pressure Mean 117 125 Pulse Ox 96 Oxygen Delivery Method Room Air 04/23/23 17:39 Temperature Temperature Source Pulse Rate Respiratory Rate Respiratory Effort Respiratory Pattern Blood Pressure Blood Pressure Mean Pulse Ox Oxygen Delivery Method Room Air Weight Weight: 56.5 kg Body Mass Index (BMI) 22.8 Physical Exam Const alert, oriented x3, no apparent distress, average body habitus, healthy appearing and well nourished Constitutional Narrative: Very pleasant, elderly, white female, sitting up in bed, appears comfortable andnontoxic, friend at bedside General Appearance: cooperative HEENT normocephalic, head/scalp atraumatic, hearing grossly normal bilaterally and moist oral mucous membranes HEENT Narrative: Dentition is good for age, Mallampati is 1, no thrush Resp normal respiratory effort, no retractions, no use of accessory muscles and clearto auscultation bilaterally Auscultation: Negative for crackles, rales, rhonchi or wheezes Cardio regular rate, regular rhythm, S1 normal heart sound, S2 normal heart sound, no murmurs, no rub, no gallops and no clicks Cardio Narrative: Ectopy noted during exam however was only 1 beat GI normal to inspection, nondistended, normoactive bowel sounds, soft to palpation and non-tender Extremity no clubbing, cyanosis or edema Extremity Narrative: Pedal pulse is are 2+ Neuro oriented x3, CN's II-XII intact bilaterally, moves all extremities and no focal motor deficits Speech: speech normal Psych affect normal Psych Narrative: Very pleasant, eye contact is good Results Lab / Micro Data 04/23/23 17:40 04/23/23 17:40 Labs: Laboratory Results - last 24 hr 04/23/23 17:40: WBC 5.0, RBC 3.51 L, Hgb 10.5 L, Hct 32.7 L, MCV 93.2, MCH 29.9,MCHC 32.1, RDW Std Deviation 48.0 H, RDW Coeff of Tonie 14.3, Plt Count 203, MPV 10.7, Immature Gran % (Auto) 0.400, Neut % (Auto) 65.8, Lymph % (Auto) 22.1, [place] % (Auto) 9.7, Eos % (Auto) 1.8, Baso % (Auto) 0.2, Absolute Neuts (auto) 3.3, Absolute Lymphs (auto) 1.10, Nucleated RBC % 0, Sodium 130 L, Potassium 3.9, Chloride 98, Carbon Dioxide 27.0, Anion Gap 5, BUN 15, Creatinine 0.87, Estim Creat Clear Calc 38.07, Est GFR (MDRD) Af Amer 80, Est GFR (MDRD) Non-Af 66, BUN/Creatinine Ratio 17.3, Glucose 101, Calcium 9.0, Magnesium 1.8, TroponinI High Sens 16 Radiology Impression Chest X-Ray 04/23/23 17:30 IMPRESSION: Cardiomegaly without radiographic evidence of acute cardiopulmonary disease. Electronically Signed: Jesse Delgado MD at 17:57 EDT , Assessment & Plan Assessment/Plan (1) Ventricular tachycardia: PLAN: Plan Nonsustained ventricular tachycardia -10 beat run during cardiac rehab today -Check echocardiogram -Check TSH -Monitor on telemetry -Continue home beta-zurdo -Consultation to cardiology for recommendations Chronic hyponatremia -Patient appears to have stable hyponatremia -Is on SSRI however patient is asymptomatic and will continue at this time -Check TSH CAD/HPL/HTN -Recent LEOBARDO to proximal LAD in December 2022 -Continue Plavix -Not on aspirin due to being on apixaban -Continue carvedilol -Continue losartan History of paroxysmal atrial fibrillation -Continue apixaban -Continue carvedilol -Currently normal sinus rhythm Hypothyroidism -Check TSH -Continue home levothyroxine History of DVT -Continue apixaban Depression -Continue escitalopram DVT prophylaxis -Continue apixaban CODE STATUS -DNR CCA with no intubation Charges/Coding Visit Charges Inpatient E&M: 13941 Init Hosp L2 04/23/23 2354 <Electronically signed by Elsa Coleman DO> Cosigner Signature (if applicable): CC: Dr. Zion Chahal MD; Dr. Elsa Coleman DO~ Signed [facility] Work Phone: 1(242) 309-396508-25-2023 Discharge summary Author Hayden Mcnair [facility] April 23, 2023 7:20pm Note Date/Time April 23, 2023 5: 30pm [facility] Medical Records Department [address] [place] [address] Emergency Department Summary 04/23/23 MR#: [id number] Acct: [id number] Name: DOMONIQUE MARI Rep #:[id number] : 1940 82 From: Hayden Mcnair MD PCP: Dr. Zion Chahal MD Status:R EG ER Location: ED HPI History of Present Illness Chief Complaint: Dizziness Narrative Narrative: ThePatient presents when she got tired during cardiac rehab. Patient had heart attack with stent placement October of this year. She is on Plavix, carvedilol, atorvastatin lisinopril. She is also on Eliquis because of a history of atrial fibrillation. She is on Synthroid. She has been going to cardiac rehab and doing well. She can normally do about 10 minutes on this certain machine. Today at 6 minutes she felt tired and could not continue. On the monitor she showed a 10 beat run of nonsustained V. tach. It terminated spontaneously. She never had chest pain with it. She states somebody said she had numbness in her arms but that is not true. She never had numbness. She states her only symptom was tiredness and it has resolved. She feels fine. I note on her chart that there is a comment about nonsustained paroxysmal ventricular tachycardia but I do not know if this was added to her chart after today's episode. She states no one is ever talked to her about a pacemaker or ICD. She has been feeling fine recently. She feels fine now. [facility] Medical History Arthritis Atherosclerosis of coronary artery of [place] heart without angina pectoris Compression fracture Depression Essential (primary) hypertension Myocarditis Non-ischemic cardiomyopathy Nonrheumatic aortic (valve) stenosis Nonsustained paroxysmal ventricular tachycardia PAF (paroxysmal atrial fibrillation) Premature ventricular beats Right leg DVT Solar elastosis Home Medications levothyroxine 112 mcg tablet 112 mcg PO DAILY PRN 02/17/20 [History Last Taken 01/21/23] escitalopram oxalate 20 mg tablet 20 mg PO DAILY 07/29/21 [History Last Taken 01/21/23] levothyroxine 100 mcg tablet 100 mcg PO .PRUDENCIO MORILLO SAT Fill as a courtesy until pt returns to [place] #36 tabs 12/15/22 [Rx Last Taken Unknown] apixaban 2.5 mg tablet (Eliquis) 2.5 mg PO BID #180 tabs 01/04/23 [Rx Last Taken 01/16/23] atorvastatin 80 mg tablet 80 mg PO QHS #90 tabs 01/04/23 [Rx Last Taken Unknown] aspirin 81 mg tablet,delayed release 81 mg PO DAILY #30 tabs 01/22/23 [Rx Last Taken Unknown] clopidogrel 75 mg tablet 75 mg PO DAILY #90 tabs 02/26/23 [Rx Last Taken Unknown] losartan 50 mg tablet 50 mg PO BID #60 tabs 04/09/23 [Rx Last Taken Unknown] carvedilol 25 mg tablet 25 mg PO BID this is a dose increase #180 tabs 04/23/23 [Rx Last Taken Unknown] Allergy/AdvReac Type Severity Reaction Status Date / Time imiquimod [From Aldara] Allergy Unknown Verified 03/05/23 20:33 Penicillins [PCN] Allergy Anaphylaxis Verified 03/05/23 20:33 amlodipine AdvReac Intermediate swelling Verified 03/05/23 20:33 in feet and legs ciprofloxacin [From Cipro] AdvReac Other Verified 03/05/23 20:33 furosemide AdvReac low saodium Verified 03/05/23 20:33 hydrochlorothiazide AdvReac hyponatremi Verified 03/05/23 20:33 a magnesium AdvReac Nausea Verified 03/05/23 20:33 prednisone AdvReac Upset Verified 03/05/23 20:33 Stomach Family History Mother Heart disease Father Heart disease Surgical History History of cataract surgery History of coronary artery stent placement (01/21/23) History of hysterectomy History of left heart catheterization (02/19/11) History of right hip replacement Social History household members: none Smoking Status: Former smoker how long ago did patient quit smokin years ago alcohol intake: current alcohol intake frequency: holidays/special occasions only substance use type: does not use caffeine: Yes Type: coffee Number of servings: 1 ROS ROS ED ROS Narrative A complete review of systems was performed and is negative except as documented in the history of present illness. Some specific details below. Constitutional: No recent fevers or chills. EYE: No discharge, visual complaints, or pain. ENT: No difficulty swallowing. No swelling. No pain. No reflux symptoms. CV: See history of present illness. She never had pain or palpitations. Respiratory: She denies any dyspnea at any time. Her only symptom was tiredness. GI: No abdominal pain. No nausea vomiting diarrhea. No blood in stool. : No frequency dysuria or hematuria. Musculoskeletal: No recent trauma. No pains. No swelling. Skin: No rash. Nondiaphoretic. Neuro: No focal weakness or numbness. Endocrine: No polyuria or polydipsia. EXAM Physical Exam Narrative Exam Narrative: CONSTITUTIONAL: Patient is nontoxic in appearance. The patient looks comfortable. Work of breathing looks normal. HEENT: No notable trauma. Mucous membranes moist. No sinus tenderness. No indication of pain with swallowing. EYES: No conjunctival injection. No proptosis. NECK:No JVD. No stridor. CARDIOVASCULAR: Regular rate. Regular rhythm. No notable murmur. No JVD. On themonitor she appears to be in sinus rhythm with a rate about 75. I am not seeingany active duty currently. But I did review outpatient tracer that was sent over with her today. She clearly had a nonsustained V. tach episode with a rateabout 175. It was 10 total beats. RESPIRATORY: No respiratory distress. Breathing is unlabored. No wheezes. No rhonchi. No rales. No pain with a deep breath. No chest wall tenderness. Saturations are normal at 96 to 97% on room air showing no hypoxia. GASTROINTESTINAL: Not distended. Bowel sounds are normal. No tenderness. No guarding. No rebound. No palpable mass. No bruit is heard. GENITOURINARY: No tenderness over the bladder. No CVA tenderness. MUSCULOSKELETAL: Atraumatic. No peripheral edema. No cord. No tenderness along the deep venous system. No asymmetry. No distended veins. NEUROLOGICAL: Patient is alert and appropriate. No focal deficit noted. SKIN: No noted rashes. No diaphoresis. PSYCHIATRIC: Patient is calm. Mood is appropriate. Const Vital Signs: 04/23/23 14:55 04/23/23 16:31 04/23/23 16:55 Temperature 97.8 F Temperature Source Temporal Pulse Rate 74 Respiratory Rate 18 Respiratory Effort Normal Non-Labored Respiratory Pattern Normal Blood Pressure 187/83 H 207/85 H Blood Pressure Mean 117 125 Pulse Ox 96 Oxygen Delivery Method Room Air 04/23/23 17:39 Temperature Temperature Source Pulse Rate Respiratory Rate Respiratory Effort Respiratory Pattern Blood Pressure Blood Pressure Mean Pulse Ox Oxygen Delivery Method Room Air MDM MDM MDM Narrative Medical decision making narrative: Patient CBC shows some mild anemia. Patient's electrolytes show minimally low sodium. Potassium is normal. Magnesium is normal. Troponin is negative so far. My independent her potation the patient's single view chest x-ray shows mild cardiomegaly on an AP film. No other acute process. Final reading is similar. I discussed the case with Dr. Mariee on for cardiology. He recommended admissionmonitoring and repeat her echo as she has not had an echo since her stent and MIin December. Patient is okay with this plan. Lab Data Attestation: I reviewed the patient's lab results. Labs: Laboratory Results - last 24 hr 04/23/23 17:40 WBC 5.0 RBC 3.51 L Hgb 10.5 L Hct 32.7 L MCV 93.2 MCH 29.9 MCHC 32.1 RDW Std Deviation 48.0 H RDW Coeff of Tonie 14.3 Plt Count 203 MPV 10.7 Immature Gran % (Auto) 0.400 Neut % (Auto) 65.8 Lymph % (Auto) 22.1 [place] % (Auto) 9.7 Eos % (Auto) 1.8 Baso % (Auto) 0.2 Absolute Neuts (auto) 3.3 Absolute Lymphs (auto) 1.10 Nucleated RBC % 0 Sodium 130 L Potassium 3.9 Chloride 98 Carbon Dioxide 27.0 Anion Gap 5 BUN 15 Creatinine 0.87 Estim Creat Clear Calc 38.07 Est GFR (MDRD) Af Amer 80 Est GFR (MDRD) Non-Af 66 BUN/Creatinine Ratio 17.3 Glucose 101 Calcium 9.0 Magnesium 1.8 Troponin I High Sens 16 Radiography Diagnostic Testing: Clinical Impression(s) from Imaging Studies Chest X-Ray 04/23/23 17:30 IMPRESSION: Cardiomegaly without radiographic evidence of acute cardiopulmonary disease. Electronically Signed: Jesse Delgado MD at 17:57 EDT Reading Location ID and State: [address] [place] [address] Tel , Service support , Management Discussion w/another healthcare provider: Hospitalist and [employer] Discharge Plan Triage Chief Complaint: Dizziness ED Provider: Hayden Mcnair Dx/Rx/DC Orders Clinical Impression: History of acute myocardial infarction, Ventricular tachycardia, Acute hyponatremia Prescriptions: No Action escitalopram oxalate 20 mg tablet 20 mg PO DAILY atorvastatin 80 mg tablet 80 mg PO QHS Qty: 90 3RF Eliquis 2.5 mg tablet 2.5 mg PO BID Qty: 180 3RF levothyroxine 112 MCG tablet 112 mcg PO DAILY PRN Rx Instructions: TAKES EVERY Wednesday & WEDNESDAY aspirin 81 mg tablet,delayed release (DR/EC) 81 mg PO DAILY Qty: 30 0RF levothyroxine 100 mcg tablet 100 mcg PO .TU,,SAT Qty: 36 0RF clopidogrel 75 mg tablet 75 mg PO DAILY Qty: 90 3RF losartan 50 mg tablet 50 mg PO BID Qty: 60 11RF carvedilol 25 mg tablet 25 mg PO BID Qty: 180 3RF Rx Instructions: must administer with a meal/food Primary Care Provider: Zion Chahal Referrals: Zion Chahal MD [Primary Care Provider] - Disposition Disposition: Acute Care Hospital [facility] What to do if you have Problems For any increased pain, shortness of breath, bleeding, nausea or vomiting, chestpain, or any unexpected problems, contact your Primary Care Provider. Call [facility] ([phone]) or report to the closest Emergency Room. Call 911 if necessary. 04/23/231919 <Electronically signed by Hayden Mcnair MD> Cosigner Signature (if applicable): CC: Dr. Zion Chahal MD ~ Signed [facility] Work Phone: [phone]) 651-344407-07-2023 Discharge summary Author Uche Ordoñez [facility] March 05, 2023 10:43pm Note Date/Time March 05, 2023 8:50p m [facility] Medical Records Department [address] [place] [address] Emergency Department Summary 03/05/23 MR#: [id number] Acct: [id number] Name: DOMONIQUE MARI I Rep #:[id number] : 1940 82 From: Uche Hoyt PCP: Dr. Zion Chahal MD Status:R EG ER Location: ED HPI History of Present Illness Chief Complaint: Nosebleed Informant: patient Onset/Context/Timing Onset: Hours (2) Context: Sudden Onset Timing: Continuous Quality: Dark red blood Location: Right nares Worsened by: Nothing Relieved by: Blowing her nose Narrative Narrative: Patient presents with epistaxis that began approximately 2 hours prior to arrival. Patient states it is mainly coming from the right nares. Patient states she is blowing her nose and blowing out clots. Patient states that when she blows out the clots it feels better. Patient denies any difficulty breathing or difficulty swallowing. Patient noted some dark blood from the right nares. Patient denies any fevers or chills. Patient denies any chest pain or shortness of breath. Patient denies any nausea or vomiting. Patient denies any lightheadedness or dizziness. [facility] Medical History Arthritis Atherosclerosis of coronary artery of sioux heart without angina pectoris Compression fracture Depression Essential (primary) hypertension Myocarditis Non-ischemic cardiomyopathy Nonrheumatic aortic (valve) stenosis Nonsustained paroxysmal ventricular tachycardia PAF (paroxysmal atrial fibrillation) Premature ventricular beats Right leg DVT Solar elastosis Home Medications levothyroxine 112 mcg tablet 112 mcg PO DAILY PRN 02/17/20 [History Last Taken 01/21/23] escitalopram oxalate 20 mg tablet 20 mg PO DAILY 07/29/21 [History Last Taken 01/21/23] levothyroxine 100 mcg tablet 100 mcg PO .PRUDENCIO MORILLO,UMESH Fill as a courtesy until pt returns to [place] #36 tabs 12/15/22 [Rx Last Taken Unknown] apixaban 2.5 mg tablet (Eliquis) 2.5 mg PO BID #180 tabs 01/04/23 [Rx Last Taken 01/16/23] atorvastatin 80 mg tablet 80 mg PO QHS #90 tabs 01/04/23 [Rx Last Taken Unknown] lisinopril 10 mg tablet 10 mg PO BID Dose just increased today #180 tabs 01/05/23 [Rx Last Taken 01/21/23] aspirin 81 mg tablet,delayed release 81 mg PO DAILY #30 tabs 01/22/23 [Rx Last Taken Unknown] carvedilol 25 mg tablet 25 mg PO BID this is a dose increase #180 tabs 02/19/23 [Rx Last Taken Unknown] clopidogrel 75 mg tablet 75 mg PO DAILY #90 tabs 02/26/23 [Rx Last Taken Unknown] Allergy/AdvReac Type Severity Reaction Status Date / Time imiquimod [From Aldara] Allergy Unknown Verified 03/05/23 20:33 Penicillins [PCN] Allergy Anaphylaxis Verified 03/05/23 20:33 amlodipine AdvReac Intermediate swelling Verified 03/05/23 20:33 in feet and legs ciprofloxacin [From Cipro] AdvReac Other Verified 03/05/23 20:33 furosemide AdvReac low saodium Verified 03/05/23 20:33 hydrochlorothiazide AdvReac hyponatremi Verified 03/05/23 20:33 a magnesium AdvReac Nausea Verified 03/05/23 20:33 prednisone AdvReac Upset Verified 03/05/23 20:33 Stomach Family History (Reviewed 03/05/23 @ 13:12 by Sydney Delong [employer] CHIEF, GEOP[employer]ICAL [employer]ORATORY CHIEF-C) Mother Heart disease Father Heart disease Surgical History History of cataract surgery History of coronary artery stent placement (01/21/23) History of hysterectomy History of left heart catheterization (02/19/11) History of right hip replacement Social History household members: none Smoking Status: Former smoker how long ago did patient quit smokin years ago alcohol intake: current alcohol intake frequency: holidays/special occasions only substance use type: does not use caffeine: Yes Type: coffee Number of servings: 1 ROS ROS ED Constitutional Constitutional ED: Denies chills or fever(s) Eyes Eyes: Denies blurry vision or change in vision ENT ENT ED: Reports epistaxis; Denies sore throat Cardiovascular Cardiovascular: Denies chest pain or palpitations Respiratory/Chest Respiratory/Chest: Denies cough or dyspnea Gastrointestinal Gastrointestinal: Denies nausea or vomiting Genitourinary Genitourinary ED: Denies dysuria or hematuria Musculoskeletal Musculoskeletal: Denies back pain or neck pain Integumentary Denies abscess or rash Neurologic Neurologic: Denies headache(s) or weakness Allergic/Immunologic Allergic/Immunologic ED: Denies mouth swelling or urticaria EXAM Physical Exam Const Vital Signs: 03/05/23 20:34 Temperature 98 F Temperature Source Temporal Pulse Rate 69 Respiratory Rate 16 Blood Pressure 179/76 H Blood Pressure Mean 110 Pulse Ox 94 Positive well nourished and well developed General Appearance ED: well developed and NAD HEENT Reports moist mucous membranes HEENT Narrative: There is active bleeding from the right nares. There is no septal deviation or septal hematoma. There is mild bloody drainage in the oropharynx. Neck supple and no JVD Resp normal respiratory effort and clear to auscultation bilaterally Cardio regular rate and regular rhythm Neuro oriented x3, CN's II-XII intact bilaterally and no sensory deficits noted Sensorium / Orientation: alert Motor Exam: strength 5/5 throughout Psych Mood & Affect: anxious MDM MDM MDM Narrative Medical decision making narrative: Differential diagnosis includes epistaxis, coagulopathy, and anemia. CBC will be obtained to assess for anemia and leukocytosis. Basic metabolic profile willbe obtained to assess for electrolyte abnormality and renal function. PT with INR and PTT will be obtained to assess for coagulopathy. History & Record Review Additional record(s) reviewed:: Prior labs Lab Data Attestation: I reviewed the patient's lab results. Lab results narrative: CBC was reviewed. There is a mild anemia with a hemoglobin of 10.1 and hematocrit of 31.4. These are stable compared to previous results. PT with INRand PTT were reviewed. Pro time was 17.1. INR is 1.4. PTT was normal at 33.8. Basic metabolic profile was reviewed. BUN was slightly elevated at 19 and creatinine was slightly elevated at 1.06. Labs: Laboratory Results - last 24 hr 03/05/23 21:09 WBC 6.0 RBC 3.33 L Hgb 10.1 L Hct 31.4 L MCV 94.3 MCH 30.3 MCHC 32.2 RDW Std Deviation 47.1 H RDW Coeff of Tonie 13.9 Plt Count 209 MPV 10.5 Immature Gran % (Auto) 0.200 Neut % (Auto) 75.3 H Lymph % (Auto) 15.3 L [place] % (Auto) 7.8 Eos % (Auto) 1.2 Baso % (Auto) 0.2 Absolute Neuts (auto) 4.5 Absolute Lymphs (auto) 0.92 Nucleated RBC % 0 PT 17.1 H INR 1.4 APTT 33.8 Sodium 134 L Potassium 3.8 Chloride 100 Carbon Dioxide 28.0 Anion Gap 6 BUN 19 H Creatinine 1.06 H Estim Creat Clear Calc 31.25 Est GFR (MDRD) Af Amer 64 Est GFR (MDRD) Non-Af 53 L BUN/Creatinine Ratio 17.9 Glucose 107 H Calcium 8.6 Treatment and Re-Evaluation :: Lorie mix was applied to cotton balls and was inserted into the right nares. Bleeding appeared to improve after this. A 5.5 cm anterior rapid Rhino was applied to the right nares and was inserted as far as the patient could tolerate. The balloon was inflated with as much air as the patient could tolerate. Patient initially felt some clots going down the back of her throat but states this has improved. On reevaluation, there is no further bleeding noted. Patient was instructed to maintain the nasal packing for 2 days. Patient was instructed to either return to the emergency department or follow-upwith her primary care physician or Dr. Melo in 2 days for removal. Patient understood and was agreeable with the plan. All questions were answered. Prior to being discharged, patient was complaining of more bleeding down the back of her throat and from her left nares. The nasal packing was removed from the right nares. More cotton balls with Lorie solution were applied to both nares. A 5.5 cm anterior rapid Rhino was reapplied to the right nares. The balloon was inflated with as much air as the patient can tolerate. I attempted to place a 5.5 cm anterior rapid Rhino to the left nares. Patient could only tolerate advancement of approximately 1 cm of the packing. Patient will be observed in the emergency department. If the bleeding stops, patient will be discharged home. Discharge Plan Triage Chief Complaint: Nosebleed ED Provider: Uche Ordoñez Dx/Rx/DC Orders Clinical Impression: Essential (primary) hypertension, Acute anterior epistaxis Instructions: ED Epistaxis (Adult) Prescriptions: No Action escitalopram oxalate 20 mg tablet 20 mg PO DAILY atorvastatin 80 mg tablet 80 mg PO QHS Qty: 90 3RF Eliquis 2.5 mg tablet 2.5 mg PO BID Qty: 180 3RF levothyroxine 112 MCG tablet 112 mcg PO DAILY PRN Rx Instructions: TAKES EVERY Wednesday & WEDNESDAY aspirin 81 mg tablet,delayed release (DR/EC) 81 mg PO DAILY Qty: 30 0RF levothyroxine 100 mcg tablet 100 mcg PO .,WED Qty: 36 0RF lisinopril 10 mg tablet 10 mg PO BID Qty: 180 3RF carvedilol 25 mg tablet 25 mg PO BID Qty: 180 3RF Rx Instructions: must administer with a meal/food clopidogrel 75 mg tablet 75 mg PO DAILY Qty: 90 3RF Primary Care Provider: Zion Chahal Referrals: Zion Chahal MD [Primary Care Provider] - 2 Days Disposition Disposition: Home, Self Care What to do if you have Problems For any increased pain, shortness of breath, bleeding, nausea or vomiting, chestpain, or any unexpected problems, contact your Primary Care Provider. Call [facility] ([phone]) or report to the closest Emergency Room. Call 911 if necessary. 03/05/232242 <Electronically signed by Uche Ordoñez DO> Cosigner Signature (if applicable): CC: Dr. Zion Chahal MD ~ Signed [facility] Work Phone: [phone]) 304-866205-25-2023 Evaluation note* Diagnosis Onset Date Resolution Status Admit Date Carotid bruit acute February 05 1:00pm History of coronary artery stent placement January 21, 2023 acute February 05, 2025 1 :00pm Nonsustained ventricular tachycardia acute February 05, 2025 1 :00pm PAF (paroxysmal atrial fibrillation) acute February 05, 2025 1 :00pm Essential (primary) hypertension chronic February 05, 2025 1 :00pm Nonrheumatic aortic (valve) stenosis chronic February 05, 2025 1 :00pm [facility] Work Phone: Discharge summary Author Nimco Braswell [facility] April 24, 2023 4:09pm Note Date/Time April 24, 2023 3: 25pm [facility] Medical Records Department [address] [place] [address] Instructions for Home/Discharge Instructions 04/24/23 1524 MR#: [id number] Acct: [id number] Name: DOMONIQUE MARI Rep #:[id number] : 1940 82 From: Nimco Braswell MD PCP: Dr. Zion Chahal MD Status:A DM DORA Discharge Instructions Diet Discharge Diet: - (DASH diet) Activity Discharge Activity: Return to Normal Activity Follow Up Care Test Results: Test results from this visit will be discussed in further detail at your follow- up appointment, if applicable. Discharge Plan Admission Admit Date/Time: 04/23/23 19:49 Primary Reason for Your Visit: Fatigue, light headedness Attending Provider: Nimco Braswell Primary Care Provider: Zion Chahal Consulting Providers: Treva Mariee; Elsa Coleman Instructions Patient Instructions: DASH Plan Eat Heart Healthy Food Additional Instructions / Restrictions: DISCHARGE INSTRUCTIONS PLEASE READ *Please take this with you to your next doctors appointment* -Please follow-up with cardiology upon discharge. Please call their office to schedule hospital follow-up appointment upon discharge. -Your Coreg (carvedilol) has been increased to 37.5 mg twice daily -You will need an outpatient left-sided carotid Doppler and an outpatient stresstest. These can be coordinated through your cardiology or primary care physician office, please inquire about scheduling at your hospital follow-up appointment -Please call your primary care provider's office upon discharge to schedule a hospital follow up within 1 week. -For any concerning signs or symptoms please call 911 or proceed to the nearest emergency department Discharge Orders/Prescriptions Prescriptions: Continued escitalopram oxalate 20 mg tablet 20 mg PO DAILY atorvastatin 80 mg tablet 80 mg PO QHS Qty: 90 3RF Eliquis 2.5 mg tablet 2.5 mg PO BID Qty: 180 3RF levothyroxine 112 MCG tablet 112 mcg PO DAILY PRN Rx Instructions: TAKES EVERY Wednesday & WEDNESDAY levothyroxine 100 mcg tablet 100 mcg PO .,,WED Qty: 36 0RF clopidogrel 75 mg tablet 75 mg PO DAILY Qty: 90 3RF losartan 50 mg tablet 50 mg PO BID Qty: 60 11RF Changed carvedilol 25 mg tablet 37.5 mg PO BID 30 Days Qty: 90 0RF Rx Instructions: must administer with a meal/food Referrals / Follow Up: Treva Mariee MD [Med Staff - Active Staff] - Within 1 Month ( -Please follow-up with cardiology upon discharge. Please call their office to schedule hospital follow-up appointment upon discharge.) Zion Chahal MD [Primary Care Provider] - Within 1 Week Disposition Disposition (needs filled in before D/C Order can be placed): Home, Self Care 04/24/23 1601<Electronically signed by Nimco Braswell MD>Nimco Braswell MD CC: Dr. Treva Mariee MD; Dr. Zion Chahal MD; Dr. Elsa Coleman DO ~ Signed [facility] Work Phone: Discharge summary Author Nimco Braswell [facility] April 24, 2023 4:09pm Note Date/Time April 24, 2023 3: 35pm [facility] Medical Records Department [address] [place] [address] Discharge Summary 04/24/23 1530 MR#: [id number] Acct: [id number] Name: DOMONIQUE MARI Rep #:[id number] : 1940 82 From: Nimco Braswell MD PCP: Dr. Zion Chahal MD Status:A DM DORA Location: [place] [address] Providers Date of Admission: 04/23/23 Date of Discharge: 04/24/23 Primary Care Physician: Dr. Zion Chahal MD Consultations 04/23/23 21:03 Consult: Cardiology Routine Consulting Provider: Treva Mariee Reason for Consult: NSVT EMERGENT Consult: No MD Notified: Yes Date Notified: 04/24/23 Time Notified: 06:52 Method of Notification: Text Reason For Visit: NSVT Diagnosis Discharge Diagnosis (1) Ventricular tachycardia: Status: Acute Code(s): I47.20 - Ventricular tachycardia, unspecified (2) Atherosclerosis of coronary artery of sioux heart without angina pectoris: Status: Acute Code(s): I25.10 - Atherosclerotic heart disease of sioux coronary artery without angina pectoris (3) PAF (paroxysmal atrial fibrillation): Status: Acute Code(s): I48.0 - Paroxysmal atrial fibrillation (4) Essential (primary) hypertension: Status: Chronic Code(s): I10 - Essential (primary) hypertension (5) Carotid bruit: Status: Acute Code(s): R09.89 - Other specified symptoms and signs involving the circulatory and respiratory systems (6) Aortic stenosis: Status: Acute Code(s): I35.0 - Nonrheumatic aortic (valve) stenosis Plan #Nonsustained ventricular tachycardia resolved #Chronic hyponatremia #CAD LEOBARDO to LAD 01/19/2023 /HPL/HTN #History of paroxysmal atrial fibrillation #Hypothyroidism #History of DVT #Depression #Stage II diastolic dysfunction Medications at Discharge Home Medications levothyroxine 112 mcg tablet 112 mcg PO DAILY PRN 02/17/20 escitalopram oxalate 20 mg tablet 20 mg PO DAILY 07/29/21 levothyroxine 100 mcg tablet 100 mcg PO .YISEL,PRUDENCIO,UMESH Fill as a courtesy until pt returns to [place] #36 tabs 12/15/22 apixaban 2.5 mg tablet (Eliquis) 2.5 mg PO BID #180 tabs 01/04/23 atorvastatin 80 mg tablet 80 mg PO QHS #90 tabs 01/04/23 clopidogrel 75 mg tablet 75 mg PO DAILY #90 tabs 02/26/23 losartan 50 mg tablet 50 mg PO BID #60 tabs 04/09/23 carvedilol 25 mg tablet 37.5 mg (1.5 x 25 mg) PO BID this is a dose increase 30 days #90 tabs 04/24/23 Hospital Course Procedures 2-D Echocardiogram Summary of Care Provided Minutes Spent on Discharge: 33 Hospital Course: 82-year-old female history of coronary artery disease with stenting with LEOBARDO to the proximal LAD 01/21/2023, hypertension, right leg DVT who presented to [facility] 04/23/2023 as she was at cardiac rehab on one of the exercise machines and felt fatigued and lightheaded and was noted to have a 10 beat run of nonsustained V. tach on her monitor. It terminated spontaneously and she hadno chest pain so she was sent to the ED. Cardiology consulted and patient placed on telemetry. EKG without any ST changes concerning for acute ischemia. Echocardiogram obtained which showed EF of 65% with stage II diastolic dysfunction, 2+ tricuspid valve insufficiency, RVSP 48 mmHg. Cardiology evaluated and recommended increasing carvedilol to 37.5 twice daily and then if patient tolerated that she could be DC'd home with outpatient follow-up. They recommended Michelle scan and left carotid duplex on outpatient basis. Patient did tolerate the medication and had no further symptoms, discharged home in stable condition with the following instructions: -Please follow-up with cardiology upon discharge. Please call their office to schedule hospital follow-up appointment upon discharge. -Your Coreg (carvedilol) has been increased to 37.5 mg twice daily -You will need an outpatient left-sided carotid Doppler and an outpatient stresstest. These can be coordinated through your cardiology or primary care physician office, please inquire about scheduling at your hospital follow-up appointment -Please call your primary care provider's office upon discharge to schedule a hospital follow up within 1 week. -For any concerning signs or symptoms please call 911 or proceed to the nearest emergency department Physical Exam Narrative General: Alert, oriented, no apparent distress HEENT: Atraumatic, normocephalic Eyes: Anicteric, normal conjunctiva, extraocular movements grossly intact Neck: Supple Respiratory: Clear to auscultation bilaterally, normal respiratory effort Cardiovascular: Regular rate GI: Soft, nontender, nondistended Extremities: No edema Musculoskeletal: Moving all extremities Neuro: No overt focal neurological deficits Skin: No rashes appreciated Psych: Cooperative Weight / BMI Weight Weight: 54.3 kg Body Mass Index (BMI) 21.9 ABG / Lab / Microbiology Data 04/24/23 06:40 04/24/23 06:40 Laboratory: Laboratory Results - last 24 hr 04/23/23 17:40: WBC 5.0, RBC 3.51 L, Hgb 10.5 L, Hct 32.7 L, MCV 93.2, MCH 29.9,MCHC 32.1, RDW Std Deviation 48.0 H, RDW Coeff of Tonie 14.3, Plt Count 203, MPV 10.7, Immature Gran % (Auto) 0.400, Neut % (Auto) 65.8, Lymph % (Auto) 22.1, [place] % (Auto) 9.7, Eos % (Auto) 1.8, Baso % (Auto) 0.2, Absolute Neuts (auto) 3.3, Absolute Lymphs (auto) 1.10, Nucleated RBC % 0, Sodium 130 L, Potassium 3.9, Chloride 98, Carbon Dioxide 27.0, Anion Gap 5, BUN 15, Creatinine 0.87, Estim Creat Clear Calc 38.07, Est GFR (MDRD) Af Amer 80, Est GFR (MDRD) Non-Af 66, BUN/Creatinine Ratio 17.3, Glucose 101, Calcium 9.0, Magnesium 1.8, TroponinI High Sens 16 04/23/23 20:20: Troponin I High Sens 04/23/23 23:57: Troponin I High Sens 04/24/23 06:40: WBC 3.7 L, RBC 3.32 L, Hgb 10.0 L, Hct 30.7 L, MCV 92.5, MCH 30.1, MCHC 32.6, RDW Std Deviation 49.1 H, RDW Coeff of Tonie 14.4, Plt Count 195,MPV 10.5, Immature Gran % (Auto) 0.300, Neut % (Auto) 55.0, Lymph % (Auto) 29.3,[place] % (Auto) 12.6 H, Eos % (Auto) 2.5, Baso % (Auto) 0.3, Absolute Neuts (auto)2.0, Absolute Lymphs (auto) 1.07, Nucleated RBC % 0, Sodium 133 L, Potassium 4.0, Chloride 99, Carbon Dioxide 29.0, Anion Gap 5, BUN 15, Creatinine 0.83, Estim Creat Clear Calc 39.91, Est GFR (MDRD) Af Amer 85, Est GFR (MDRD) Non-Af 70, BUN/Creatinine Ratio 18.2, Glucose 91, Calcium 8.4 L, Phosphorus 3.4, Magnesium 2.3, Total Bilirubin 0.40, AST 24, ALT 32, Alkaline Phosphatase 58, Total Protein 6.6, Albumin 3.1 L, Globulin 3.5, Albumin/Globulin Ratio 0.9, TSH 2.28 Radiography Diagnostic Testing: Radiology Impression Chest X-Ray 04/23/23 17:30 IMPRESSION: Cardiomegaly without radiographic evidence of acute cardiopulmonary disease. Electronically Signed: Jesse Delgado MD at 17:57 EDT , Echocardiogram 04/23/23 19:54 Interpretation Summary Moderate concentric left ventricular hypertrophy. The left ventricular ejection fraction is 65 %. Stage 2 diastolic dysfunction. The left atrium is severely enlarged. The right atrium is moderately enlarged. Mild-Moderate (1-2+) mitral valve insufficiency. Moderate (2+) tricuspid valve insufficiency. Moderate diffuse aortic valve calcification. Mild aortic stenosis. Mild (1+) aortic valve insufficiency. Right ventricular systolic pressure estimated to be 48 mmHg. Ordering Physician: Elsa Coleman Referring Physician: ZION CHAHAL Performed By: Sylvia Jung RCS D/C Instructions Discharge Diet: - (DASH diet) Meaningful Use Info Meaningful Use Diagnoses (Choose all that apply): None applicable Discharge Plan Admission Admit Date/Time: 04/23/23 19:49 Primary Reason for Your Visit: Fatigue, light headedness Attending Provider: Nimco Braswell Primary Care Provider: Zion Chahal Consulting Providers: Treva Mariee; Elsa Coleman Instructions Patient Instructions: DASH Plan Eat Heart Healthy Food Additional Instructions / Restrictions: DISCHARGE INSTRUCTIONS PLEASE READ *Please take this with you to your next doctors appointment* -Please follow-up with cardiology upon discharge. Please call their office to schedule hospital follow-up appointment upon discharge. -Your Coreg (carvedilol) has been increased to 37.5 mg twice daily -You will need an outpatient left-sided carotid Doppler and an outpatient stresstest. These can be coordinated through your cardiology or primary care physician office, please inquire about scheduling at your hospital follow-up appointment -Please call your primary care provider's office upon discharge to schedule a hospital follow up within 1 week. -For any concerning signs or symptoms please call 911 or proceed to the nearest emergency department Discharge Orders/Prescriptions Prescriptions: Continued escitalopram oxalate 20 mg tablet 20 mg PO DAILY atorvastatin 80 mg tablet 80 mg PO QHS Qty: 90 3RF Eliquis 2.5 mg tablet 2.5 mg PO BID Qty: 180 3RF levothyroxine 112 MCG tablet 112 mcg PO DAILY PRN Rx Instructions: TAKES EVERY Wednesday & WEDNESDAY levothyroxine 100 mcg tablet 100 mcg PO .,,WED Qty: 36 0RF clopidogrel 75 mg tablet 75 mg PO DAILY Qty: 90 3RF losartan 50 mg tablet 50 mg PO BID Qty: 60 11RF Changed carvedilol 25 mg tablet 37.5 mg PO BID 30 Days Qty: 90 0RF Rx Instructions: must administer with a meal/food Referrals / Follow Up: Treva Mariee MD [Med Staff - Active Staff] - Within 1 Month ( -Please follow-up with cardiology upon discharge. Please call their office to schedule hospital follow-up appointment upon discharge.) Zion Chahal MD [Primary Care Provider] - Within 1 Week Disposition Disposition (needs filled in before D/C Order can be placed): Home, Self Care Charges/Coding Visit Charges Inpatient E&M: 09955 Disch Hosp >30min 04/24/23 1609 <Electronically signed by Nimco Braswell MD> Cosigner Signature (if applicable): CC: Dr. Zion Chahal MD; Dr. Nimco Braswell MD~ Signed [facility] Work Phone: Evaluation note* Diagnosis Onset Date Resolution Status Non-ischemic cardiomyopathy acute Essential (primary) hypertension chronic Nonrheumatic aortic (valve) stenosis chronic Fall acute Periprosthetic intertrochanteric fracture of femur acute [facility] Work Phone: Evaluation note* Diagnosis Onset Date Resolution Status Non-ischemic cardiomyopathy acute Essential (primary) hypertension chronic Nonrheumatic aortic (valve) stenosis chronic Acute blood loss anemia acut e STEVEN (acute kidney injury) ac kaibab Fall acute Guaiac positive stools acute Hyponatremia acute Periprosthetic intertrochanteric fracture of femur acute [facility] Work Phone: Evaluation note* Diagnosis Onset Date Resolution Status Non-ischemic cardiomyopathy acute Essential (primary) hypertension chronic Nonrheumatic aortic (valve) stenosis chronic Acute blood loss anemia acut e Fall acute Guaiac positive stools acute Hyponatremia acute Periprosthetic intertrochanteric fracture of femur acute STEVEN (acute kidney injury) re solved [facility] Work Phone: Evaluation note* Diagnosis Onset Date Resolution Status PAF (paroxysmal atrial fibrillation) acute S/P coronary artery stent placement acute Essential (primary) hypertension chronic Non-ischemic cardiomyopathy chronic Nonrheumatic aortic (valve) stenosis [facility] Work Phone: Evaluation note* Diagnosis Onset Date Resolution Status PAF (paroxysmal atrial fibrillation) acute Essential (primary) hypertension chronic Non-ischemic cardiomyopathy chronic Nonrheumatic aortic (valve) stenosis chronic Atherosclerosis of coronary artery of si[place] heart without angina pectoris acute History of coronary artery stent placement January 21 023 acute Essential (primary) hypertension chronic [facility] Work Phone: Evaluation note* Diagnosis Onset Date Resolution Status PAF (paroxysmal atrial fibrillation) acute Essential (primary) hypertension chronic Non-ischemic cardiomyopathy chronic Nonrheumatic aortic (valve) stenosis chronic Atherosclerosis of coronary artery of [place] without angina pectoris acute History of coronary artery stent placement January 21, 2 023 acute Essential (primary) hypertension chronic PAF (paroxysmal atrial fibrillation) acute Essential (primary) hypertension chronic Non-ischemic cardiomyopathy chronic Nonrheumatic aortic (valve) stenosis [facility] Work Phone: Evaluation note* Diagnosis Onset Date Resolution Status PAF (paroxysmal atrial fibrillation) acute Essential (primary) hypertension chronic Non-ischemic cardiomyopathy chronic Nonrheumatic aortic (valve) stenosis chronic Atherosclerosis of coronary artery of [place] without angina pectoris acute History of coronary artery stent placement January 21 023 acute Essential (primary) hypertension chronic PAF (paroxysmal atrial fibrillation) acute Essential (primary) hypertension chronic Non-ischemic cardiomyopathy chronic Nonrheumatic aortic (valve) stenosis chronic Acute hyponatremia acute Aortic stenosis acute Atherosclerosis of coronary artery of [place] without angina pectoris acute Carotid bruit acute History of acute myocardial infarction acute PAF (paroxysmal atrial fibrillation) acute Ventricular tachycardia acut e Essential (primary) hypertension [facility] Work Phone: Evaluation note* Diagnosis Onset Date Resolution Status PAF (paroxysmal atrial fibrillation) acute Essential (primary) hypertension chronic Non-ischemic cardiomyopathy chronic Nonrheumatic aortic (valve) stenosis chronic Aortic stenosis acute Atherosclerosis of coronary artery of [place] without angina pectoris acute Carotid bruit acute History of acute myocardial infarction acute PAF (paroxysmal atrial fibrillation) acute Essential (primary) hypertension chronic Ventricular tachycardia reso lved Carotid bruit acute History of coronary artery stent placement January 21 023 acute Nonsustained ventricular tachycardia acute PAF (paroxysmal atrial fibrillation) acute Essential (primary) hypertension chronic Nonrheumatic aortic (valve) stenosis [facility] Work Phone: Reason for referral (narrative)No reason for referral [facility] Work Phone: Chief Complaint and Reason for Visit Chief Complaint 6 M FU RIGHT HIP FRACTURE RIGHT HIP FRACTURE Reason for Visit Non-ischemic cardiom yopathy Essential (primary) hypertension Nonrheumatic aortic (valve) stenosis Fall Periprosthetic intertrochanteric fracture of femur Chief Complaint 6 M FU RIGHT HIP FRACTURE RIGHT HIP FRACTURE RIGHT HIP FRACTURE RIGHT HIP FRACTURE RIGHT HIP FRACTURE RIGHT HIP FRACTURE RIGHT HIP FRACTURE RIGHT HIP FRACTURE RIGHT HIP FRACTURE RIGHT HIP FRACTURE Reason for Visit Non-ischemic cardiom yopathy Essential (primary) hypertension Nonrheumatic aortic (valve) stenosis Acute blood loss anemia STEVEN (acute kidney injury) Fall Guaiac positive stools Hyponatremia Periprosthetic intertrochanteric fracture of femur Chief Complaint 6 M FU RIGHT HIP FRACTURE RIGHT HIP FRACTURE RIGHT HIP FRACTURE RIGHT HIP FRACTURE RIGHT HIP FRACTURE RIGHT HIP FRACTURE RIGHT HIP FRACTURE RIGHT HIP FRACTURE RIGHT HIP FRACTURE RIGHT HIP FRACTURE NEW SYMPTOMS/CONCERNS LONG TERM LABWORK NEW SYMPTOMS/CONCERN RIGHT LOWER LEG PAIN Reason for Visit Non-ischemic cardiom yopathy Essential (primary) hypertension Nonrheumatic aortic (valve) stenosis Acute blood loss anemia Fall Guaiac positive stools Hyponatremia Periprosthetic intertrochanteric fracture of femur STEVEN (acute kidney injury) Chief Complaint 6 M FU RIGHT HIP FRACTURE RIGHT HIP FRACTURE RIGHT HIP FRACTURE RIGHT HIP FRACTURE RIGHT HIP FRACTURE RIGHT HIP FRACTURE RIGHT HIP FRACTURE RIGHT HIP FRACTURE RIGHT HIP FRACTURE RIGHT HIP FRACTURE NEW SYMPTOMS/CONCERNS LONG TERM LABWORK NEW SYMPTOMS/CONCERN LABWORK RIGHT LOWER LEG PAIN Reason for Visit Non-ischemic cardiom yopathy Essential (primary) hypertension Nonrheumatic aortic (valve) stenosis Acute blood loss anemia Fall Guaiac positive stools Hyponatremia Periprosthetic intertrochanteric fracture of femur STEVEN (acute kidney injury) Chief Complaint S/[place] Reason for Visit PAF (paroxysmal atri al fibrillation) S/P coronary artery stent placement Essential (primary) hypertension Non-ischemic cardiomyopathy Nonrheumatic aortic (valve) stenosis Chief Complaint [place] CAD STENT PLACEMANT CAD STENT PLACEMANT PCI with coronary stent PCI w/coronary stenting Reason for Visit PAF (paroxysmal atri al fibrillation) Essential (primary) hypertension Non-ischemic cardiomyopathy Nonrheumatic aortic (valve) stenosis Atherosclerosis of coronary artery of [place] without angina pectoris History of coronary artery stent placement Essential (primary) hypertension Chief Complaint S/[place] CAD STENT PLACEMANT CAD STENT PLACEMANT PCI with coronary stent PCI w/coronary stenting 6-8 WK F/U PCI w/coronary stenting NOSEBLEED Reason for Visit PAF (paroxysmal atri al fibrillation) Essential (primary) hypertension Non-ischemic cardiomyopathy Nonrheumatic aortic (valve) stenosis Atherosclerosis of coronary artery of [place] without angina pectoris History of coronary artery stent placement Essential (primary) hypertension PAF (paroxysmal atrial fibrillation) Essential (primary) hypertension Non-ischemic cardiomyopathy Nonrheumatic aortic (valve) stenosis Chief Complaint S/[place] CAD STENT PLACEMANT CAD STENT PLACEMANT PCI with coronary stent PCI w/coronary stenting 6-8 WK F/U NOSEBLEED PCI w/coronary stenting Reason for Visit PAF (paroxysmal atri al fibrillation) Essential (primary) hypertension Non-ischemic cardiomyopathy Nonrheumatic aortic (valve) stenosis Atherosclerosis of coronary artery of [place] without angina pectoris History of coronary artery stent placement Essential (primary) hypertension PAF (paroxysmal atrial fibrillation) Essential (primary) hypertension Non-ischemic cardiomyopathy Nonrheumatic aortic (valve) stenosis Chief Complaint S/P [place] CAD STENT PLACEMANT CAD STENT PLACEMANT PCI with coronary stent PCI w/coronary stenting 6-8 WK F/U NOSEBLEED PCI w/coronary stenting PCI w/coronary stenting Reason for Visit PAF (paroxysmal atri al fibrillation) Essential (primary) hypertension Non-ischemic cardiomyopathy Nonrheumatic aortic (valve) stenosis Atherosclerosis of coronary artery of [place] without angina pectoris History of coronary artery stent placement Essential (primary) hypertension PAF (paroxysmal atrial fibrillation) Essential (primary) hypertension Non-ischemic cardiomyopathy Nonrheumatic aortic (valve) stenosis Chief Complaint S/P [place] CAD STENT PLACEMANT CAD STENT PLACEMANT PCI with coronary stent PCI w/coronary stenting 6-8 WK F/U NOSEBLEED PCI w/coronary stenting PCI w/coronary stenting NSVT NSVT NSVT NSVT Reason for Visit PAF (paroxysmal atri al fibrillation) Essential (primary) hypertension Non-ischemic cardiomyopathy Nonrheumatic aortic (valve) stenosis Atherosclerosis of coronary artery of [place] without angina pectoris History of coronary artery stent placement Essential (primary) hypertension PAF (paroxysmal atrial fibrillation) Essential (primary) hypertension Non-ischemic cardiomyopathy Nonrheumatic aortic (valve) stenosis Acute hyponatremia Aortic stenosis Atherosclerosis of coronary artery of [place] without angina pectoris Carotid bruit History of acute myocardial infarction PAF (paroxysmal atrial fibrillation) Ventricular tachycardia Essential (primary) hypertension Chief Complaint S/P [place] CAD STENT PLACEMANT CAD STENT PLACEMANT PCI with coronary stent PCI w/coronary stenting 6-8 WK F/U NOSEBLEED PCI w/coronary stenting NSVT NSVT NSVT NSVT PCI w/coronary stenting Reason for Visit PAF (paroxysmal atri al fibrillation) Essential (primary) hypertension Non-ischemic cardiomyopathy Nonrheumatic aortic (valve) stenosis Atherosclerosis of coronary artery of [place] without angina pectoris History of coronary artery stent placement Essential (primary) hypertension PAF (paroxysmal atrial fibrillation) Essential (primary) hypertension Non-ischemic cardiomyopathy Nonrheumatic aortic (valve) stenosis Acute hyponatremia Aortic stenosis Atherosclerosis of coronary artery of [place] without angina pectoris Carotid bruit History of acute myocardial infarction PAF (paroxysmal atrial fibrillation) Ventricular tachycardia Essential (primary) hypertension Chief Complaint PCI with coronary st ent PCI w/coronary stenting 6-8 WK F/U NOSEBLEED PCI w/coronary stenting NSVT NSVT NSVT NSVT PCI w/coronary stenting PCI w/coronary stenting S/P [facility] 04/24 Reason for Visit PAF (paroxysmal atri al fibrillation) Essential (primary) hypertension Non-ischemic cardiomyopathy Nonrheumatic aortic (valve) stenosis Aortic stenosis Atherosclerosis of coronary artery of [place] without angina pectoris Carotid bruit History of acute myocardial infarction PAF (paroxysmal atrial fibrillation) Essential (primary) hypertension Ventricular tachycardia Carotid bruit History of coronary artery stent placement Nonsustained ventricular tachycardia PAF (paroxysmal atrial fibrillation) Essential (primary) hypertension Nonrheumatic aortic (valve) stenosis Chief Complaint Admit Date 7 M FU February 05, 2025 1:00p m Reason for Visit Admit Date Carotid bruit February 05, 2025 1:00p m History of coronary artery stent placeme nt February 05, 2025 1:00pm Nonsustained ventricular tachycardia Jan 1:00pm PAF (paroxysmal atrial fibrillation) Jan 1:00pm Essential (primary) hypertension January 1:00pm Nonrheumatic aortic (valve) stenosis Jan 1:00pm Family History No Family History Records Found Relationship Condition Age at Onset Recorded Date/T [place] mother Cardiac disease Unknown father Cardiac disease Unknown Coronary Artery Disease Status:Active Comments :Mother. Brother. Emphysema Status:Active Comments:Father. Father Status:Active Comments: d. lung disease Hypertension Status:Active Comments:Mother. Brother. Mother Status:Active Comments: d. heart failure Coronary Artery Disease Status:Active Comments :Mother. Brother. Emphysema Status:Active Comments:Father. Father Status:Active Comments: d. lung disease Hypertension Status:Active Comments:Mother. Brother. Mother Status:Active Comments: d. heart failure Coronary Artery Disease Status:Active Comments :Mother. Brother. Emphysema Status:Active Comments:Father. Father Status:Active Comments: d. lung disease Hypertension Status:Active Comments:Mother. Brother. Mother Status:Active Comments: d. heart failure Coronary Artery Disease Status:Active Comments :Mother. Brother. Emphysema Status:Active Comments:Father. Father Status:Active Comments: d. lung disease Hypertension Status:Active Comments:Mother. Brother. Mother Status:Active Comments: d. heart failure Coronary Artery Disease Status:Active Comments :Mother. Brother. Emphysema Status:Active Comments:Father. Father Status:Active Comments: d. lung disease Hypertension Status:Active Comments:Mother. Brother. Mother Status:Active Comments: d. heart failure Coronary Artery Disease Status:Active Comments :Mother. Brother. Emphysema Status:Active Comments:Father. Father Status:Active Comments: d. lung disease Hypertension Status:Active Comments:Mother. Brother. Mother Status:Active Comments: d. heart failure Coronary Artery Disease Status:Active Comments :Mother. Brother. Emphysema Status:Active Comments:Father. Father Status:Active Comments: d. lung disease Hypertension Status:Active Comments:Mother. Brother. Mother Status:Active Comments: d. heart failure Coronary Artery Disease Status:Active Comments :Mother. Brother. Emphysema Status:Active Comments:Father. Father Status:Active Comments: d. lung disease Hypertension Status:Active Comments:Mother. Brother. Mother Status:Active Comments: d. heart failure Coronary Artery Disease Status:Active Comments :Mother. Brother. Emphysema Status:Active Comments:Father. Father Status:Active Comments: d. lung disease Hypertension Status:Active Comments:Mother. Brother. Mother Status:Active Comments: d. heart failure Coronary Artery Disease Status:Active Comments :Mother. Brother. Emphysema Status:Active Comments:Father. Father Status:Active Comments: d. lung disease Hypertension Status:Active Comments:Mother. Brother. Mother Status:Active Comments: d. heart failure Coronary Artery Disease Status:Active Comments :Mother. Brother. Emphysema Status:Active Comments:Father. Father Status:Active Comments: d. lung disease Hypertension Status:Active Comments:Mother. Brother. Mother Status:Active Comments: d. heart failure Coronary Artery Disease Status:Active Comments :Mother. Brother. Emphysema Status:Active Comments:Father. Father Status:Active Comments: d. lung disease Hypertension Status:Active Comments:Mother. Brother. Mother Status:Active Comments: d. heart failure Coronary Artery Disease Status:Active Comments :Mother. Brother. Emphysema Status:Active Comments:Father. Father Status:Active Comments: d. lung disease Hypertension Status:Active Comments:Mother. Brother. Mother Status:Active Comments: d. heart failure Coronary Artery Disease Status:Active Comments :Mother. Brother. Emphysema Status:Active Comments:Father. Father Status:Active Comments: d. lung disease Hypertension Status:Active Comments:Mother. Brother. Mother Status:Active Comments: d. heart failure Coronary Artery Disease Status:Active Comments :Mother. Brother. Emphysema Status:Active Comments:Father. Father Status:Active Comments: d. lung disease Hypertension Status:Active Comments:Mother. Brother. Mother Status:Active Comments: d. heart failure Coronary Artery Disease Status:Active Comments :Mother. Brother. Emphysema Status:Active Comments:Father. Father Status:Active Comments: d. lung disease Hypertension Status:Active Comments:Mother. Brother. Mother Status:Active Comments: d. heart failure Coronary Artery Disease Status:Active Comments :Mother. Brother. Emphysema Status:Active Comments:Father. Father Status:Active Comments: d. lung disease Hypertension Status:Active Comments:Mother. Brother. Mother Status:Active Comments: d. heart failure Coronary Artery Disease Status:Active Comments :Mother. Brother. Emphysema Status:Active Comments:Father. Father Status:Active Comments: d. lung disease Hypertension Status:Active Comments:Mother. Brother. Mother Status:Active Comments: d. heart failure Coronary Artery Disease Status:Active Comments :Mother. Brother. Emphysema Status:Active Comments:Father. Father Status:Active Comments: d. lung disease Hypertension Status:Active Comments:Mother. Brother. Mother Status:Active Comments: d. heart failure Coronary Artery Disease Status:Active Comments :Mother. Brother. Emphysema Status:Active Comments:Father. Father Status:Active Comments: d. lung disease Hypertension Status:Active Comments:Mother. Brother. Mother Status:Active Comments: d. heart failure Coronary Artery Disease Status:Active Comments :Mother. Brother. Emphysema Status:Active Comments:Father. Father Status:Active Comments: d. lung disease Hypertension Status:Active Comments:Mother. Brother. Mother Status:Active Comments: d. heart failure Coronary Artery Disease Status:Active Comments :Mother. Brother. Emphysema Status:Active Comments:Father. Father Status:Active Comments: d. lung disease Hypertension Status:Active Comments:Mother. Brother. Mother Status:Active Comments: d. heart failure Coronary Artery Disease Status:Active Comments :Mother. Brother. Emphysema Status:Active Comments:Father. Father Status:Active Comments: d. lung disease Hypertension Status:Active Comments:Mother. Brother. Mother Status:Active Comments: d. heart failure Coronary Artery Disease Status:Active Comments :Mother. Brother. Emphysema Status:Active Comments:Father. Father Status:Active Comments: d. lung disease Hypertension Status:Active Comments:Mother. Brother. Mother Status:Active Comments: d. heart failure Coronary Artery Disease Status:Active Comments :Mother. Brother. Emphysema Status:Active Comments:Father. Father Status:Active Comments: d. lung disease Hypertension Status:Active Comments:Mother. Brother. Mother Status:Active Comments: d. heart failure Coronary Artery Disease Status:Active Comments :Mother. Brother. Emphysema Status:Active Comments:Father. Father Status:Active Comments: d. lung disease Hypertension Status:Active Comments:Mother. Brother. Mother Status:Active Comments: d. heart failure Coronary Artery Disease Status:Active Comments :Mother. Brother. Emphysema Status:Active Comments:Father. Father Status:Active Comments: d. lung disease Hypertension Status:Active Comments:Mother. Brother. Mother Status:Active Comments: d. heart failure Coronary Artery Disease Status:Active Comments :Mother. Brother. Emphysema Status:Active Comments:Father. Father Status:Active Comments: d. lung disease Hypertension Status:Active Comments:Mother. Brother. Mother Status:Active Comments: d. heart failure Coronary Artery Disease Status:Active Comments :Mother. Brother. Emphysema Status:Active Comments:Father. Father Status:Active Comments: d. lung disease Hypertension Status:Active Comments:Mother. Brother. Mother Status:Active Comments: d. heart failure Coronary Artery Disease Status:Active Comments :Mother. Brother. Emphysema Status:Active Comments:Father. Father Status:Active Comments: d. lung disease Hypertension Status:Active Comments:Mother. Brother. Mother Status:Active Comments: d. heart failure Coronary Artery Disease Status:Active Comments :Mother. Brother. Emphysema Status:Active Comments:Father. Father Status:Active Comments: d. lung disease Hypertension Status:Active Comments:Mother. Brother. Mother Status:Active Comments: d. heart failure Coronary Artery Disease Status:Active Comments :Mother. Brother. Emphysema Status:Active Comments:Father. Father Status:Active Comments: d. lung disease Hypertension Status:Active Comments:Mother. Brother. Mother Status:Active Comments: d. heart failure Coronary Artery Disease Status:Active Comments :Mother. Brother. Emphysema Status:Active Comments:Father. Father Status:Active Comments: d. lung disease Hypertension Status:Active Comments:Mother. Brother. Mother Status:Active Comments: d. heart failure Coronary Artery Disease Status:Active Comments :Mother. Brother. Emphysema Status:Active Comments:Father. Father Status:Active Comments: d. lung disease Hypertension Status:Active Comments:Mother. Brother. Mother Status:Active Comments: d. heart failure Coronary Artery Disease Status:Active Comments :Mother. Brother. Emphysema Status:Active Comments:Father. Father Status:Active Comments: d. lung disease Hypertension Status:Active Comments:Mother. Brother. Mother Status:Active Comments: d. heart failure Coronary Artery Disease Status:Active Comments :Mother. Brother. Emphysema Status:Active Comments:Father. Father Status:Active Comments: d. lung disease Hypertension Status:Active Comments:Mother. Brother. Mother Status:Active Comments: d. heart failure Coronary Artery Disease Status:Active Comments :Mother. Brother. Emphysema Status:Active Comments:Father. Father Status:Active Comments: d. lung disease Hypertension Status:Active Comments:Mother. Brother. Mother Status:Active Comments: d. heart failure Coronary Artery Disease Status:Active Comments :Mother. Brother. Emphysema Status:Active Comments:Father. Father Status:Active Comments: d. lung disease Hypertension Status:Active Comments:Mother. Brother. Mother Status:Active Comments: d. heart failure Coronary Artery Disease Status:Active Comments :Mother. Brother. Emphysema Status:Active Comments:Father. Father Status:Active Comments: d. lung disease Hypertension Status:Active Comments:Mother. Brother. Mother Status:Active Comments: d. heart failure Coronary Artery Disease Status:Active Comments :Mother. Brother. Emphysema Status:Active Comments:Father. Father Status:Active Comments: d. lung disease Hypertension Status:Active Comments:Mother. Brother. Mother Status:Active Comments: d. heart failure Coronary Artery Disease Status:Active Comments :Mother. Brother. Emphysema Status:Active Comments:Father. Father Status:Active Comments: d. lung disease Hypertension Status:Active Comments:Mother. Brother. Mother Status:Active Comments: d. heart failure Coronary Artery Disease Status:Active Comments :Mother. Brother. Emphysema Status:Active Comments:Father. Father Status:Active Comments: d. lung disease Hypertension Status:Active Comments:Mother. Brother. Mother Status:Active Comments: d. heart failure Coronary Artery Disease Status:Active Comments :Mother. Brother. Emphysema Status:Active Comments:Father. Father Status:Active Comments: d. lung disease Hypertension Status:Active Comments:Mother. Brother. Mother Status:Active Comments: d. heart failure Coronary Artery Disease Status:Active Comments :Mother. Brother. Emphysema Status:Active Comments:Father. Father Status:Active Comments: d. lung disease Hypertension Status:Active Comments:Mother. Brother. Mother Status:Active Comments: d. heart failure Coronary Artery Disease Status:Active Comments :Mother. Brother. Emphysema Status:Active Comments:Father. Father Status:Active Comments: d. lung disease Hypertension Status:Active Comments:Mother. Brother. Mother Status:Active Comments: d. heart failure Coronary Artery Disease Status:Active Comments :Mother. Brother. Emphysema Status:Active Comments:Father. Father Status:Active Comments: d. lung disease Hypertension Status:Active Comments:Mother. Brother. Mother Status:Active Comments: d. heart failure Coronary Artery Disease Status:Active Comments :Mother. Brother. Emphysema Status:Active Comments:Father. Father Status:Active Comments: d. lung disease Hypertension Status:Active Comments:Mother. Brother. Mother Status:Active Comments: d. heart failure Coronary Artery Disease Status:Active Comments :Mother. Brother. Emphysema Status:Active Comments:Father. Father Status:Active Comments: d. lung disease Hypertension Status:Active Comments:Mother. Brother. Mother Status:Active Comments: d. heart failure Coronary Artery Disease Status:Active Comments :Mother. Brother. Emphysema Status:Active Comments:Father. Father Status:Active Comments: d. lung disease Hypertension Status:Active Comments:Mother. Brother. Mother Status:Active Comments: d. heart failure Coronary Artery Disease Status:Active Comments :Mother. Brother. Emphysema Status:Active Comments:Father. Father Status:Active Comments: d. lung disease Hypertension Status:Active Comments:Mother. Brother. Mother Status:Active Comments: d. heart failure Coronary Artery Disease Status:Active Comments :Mother. Brother. Emphysema Status:Active Comments:Father. Father Status:Active Comments: d. lung disease Hypertension Status:Active Comments:Mother. Brother. Mother Status:Active Comments: d. heart failure Coronary Artery Disease Status:Active Comments :Mother. Brother. Emphysema Status:Active Comments:Father. Father Status:Active Comments: d. lung disease Hypertension Status:Active Comments:Mother. Brother. Mother Status:Active Comments: d. heart failure Coronary Artery Disease Status:Active Comments :Mother. Brother. Emphysema Status:Active Comments:Father. Father Status:Active Comments: d. lung disease Hypertension Status:Active Comments:Mother. Brother. Mother Status:Active Comments: d. heart failure Coronary Artery Disease Status:Active Comments :Mother. Brother. Emphysema Status:Active Comments:Father. Father Status:Active Comments: d. lung disease Hypertension Status:Active Comments:Mother. Brother. Mother Status:Active Comments: d. heart failure Coronary Artery Disease Status:Active Comments :Mother. Brother. Emphysema Status:Active Comments:Father. Father Status:Active Comments: d. lung disease Hypertension Status:Active Comments:Mother. Brother. Mother Status:Active Comments: d. heart failure Coronary Artery Disease Status:Active Comments :Mother. Brother. Emphysema Status:Active Comments:Father. Father Status:Active Comments: d. lung disease Hypertension Status:Active Comments:Mother. Brother. Mother Status:Active Comments: d. heart failure Advance Directives No Advanced Directives Records Found Advance Directive Response Recorded Date/ Time Name of Medical Power of Fruit And Vegetable Parer becky reyes February 25, 2022 11:57pm Living Will Yes February 25, 2022 11:57pm Power of Fruit And Vegetable Parer Yes February 25 11:57pm Advance Directive Response Recorded Date/ Time Name of Medical Power of Fruit And Vegetable Parer pt is unsure February 26, 2022 3:41am Living Will Yes February 26, 2022 3:41am Power of Fruit And Vegetable Parer Yes February 26 3:41am Advance Directive Response Recorded Date/ Time Living Will Yes July 17 11:48am Power of Fruit And Vegetable Parer Yes July 17, 2022 11:48am Advance Directive Response Recorded Date/ Time Advance Directives on File No December 292022 8:46am Name of Medical Power of Fruit And Vegetable Parer Becky Reyes January 21, 2023 11:47am Advance Directives on File No February 05, 2023 2:48pm Advance Directives Yes January 21 8:46am Living Will Yes February 05, 2023 2 :48pm Power of Fruit And Vegetable Parer Yes February 05, 2023 2:48pm Advance Directive Response Recorded Date/ Time Advance Directives on File No December 292022 8:46am Name of Medical Power of Fruit And Vegetable Parer Becky Reyes January 21, 2023 11:47am Advance Directives on File No February 05, 2023 2:48pm Advance Directives Yes January 21 8:46am Living Will No March 05, 2023 9 :14pm Power of Fruit And Vegetable Parer No March 05, 2023 9:14pm Advance Directive Response Recorded Date/ Time Advance Directives on File No December 292022 8:46am Name of Medical Power of Fruit And Vegetable Parer Becky Reyes January 21, 2023 11:47am Advance Directives on File No February 05, 2023 2:48pm Name of Medical Power of Fruit And Vegetable Parer Becky Cerna April 23, 2023 9:35pm Advance Directives Yes January 21 8:46am Living Will Yes April 23 9:35pm Power of Fruit And Vegetable Parer Yes April 23 9:35pm Advance Directive Response Recorded Date/ Time Advance Directives on File No February 05, 2023 2:48pm Name of Medical Power of Fruit And Vegetable Parer Becky Cerna April 23, 2023 9:35pm Advance Directives Yes January 21 8:46am Living Will Yes April 23 9:35pm Power of Fruit And Vegetable Parer Yes April 23 9:35pm Advance Directive Response Recorded Date/ Time Living Will No June 05 10:39am Do you have a Healthcare Power of Fruit And Vegetable Parer? No June 05, 2024 10:39am Advance Directives Yes January 21 8:46am Summary Purpose Additional Source Comments Goals (unrecognized section and content) Goals may be documented in a n alternate sectionGoals may be documented in an alternate sectionGoals may be documented in an alternate section INFORMATION SOURCE (unrecogn ized section and content) DATE CREATED AUTHOR 03/30/2022 [facility] DATE CREATED AUTHOR AUTHOR'S ORGANIZ ATION 02/24/2025 [facility] Care Teams (unrecognized sec tion and content) Team Status: Active Member Role Status Dates Dr. Zion Chahal MD Family Provider Active Dr. Zion Chahal MD Primary Care Provider Active Team Status: Inactive Member Role Status Dates Dr. Zion Chahal MD Primary Care Provider, Refer ring Provider Active Sydney Delong GEOPHYSICAL LABORATORY CHIEF, GEOPHYSICAL LABORATORY CHIEF-C Attending Provider Active Team Status: Inactive Member Role Status Dates Dr. Zion Chahal MD Primary Care Provider Active Sydney Delong GEOPHYSICAL LABORATORY CHIEF, GEOPHYSICAL LABORATORY CHIEF-C Attending Provider, Referring P geoffrey Active Team Status: Active Member Role Status Dates Dr. Zion Chahal MD Primary Care Provider Active Dr. Javier Lehman MD Active Dr. Timothy Mack MD Attending Provider, Refe rring Provider Active Team Status: Active Member Role Status Dates Dr. Zion Chahal MD Primary Care Provider Active Dr. Timothy Mack MD Admit Prov ider, Attending Provider, Referring Provider, Other Provider Active Team Status: Inactive Member Role Status Dates Dr. Zion Chahal MD Primary Care Provider Active Dr. Timothy Mack MD Admit Prov ider, Attending Provider, Referring Provider Active Team Status: Inactive Member Role Status Dates Dr. Zion Chahal MD Primary Care Provider Active Dr. Javier Lehman MD Attending Provider, Referring Pro vider Active Team Status: Active Member Role Status Dates Dr. Zion Chahal MD Primary Care Provider Active Dr. Javier Lehman MD Attending Provider Active Team Status: Inactive Member Role Status Dates Dr. Zion Chahal MD Primary Care Provider Active Dr. Javier Lehman MD Attending Provider Active Team Status: Inactive Member Role Status Dates Dr. Zion Chahal MD Primary Care Provider Active Dr. Uche Ordoñez DO Emergency Provider Active Team Status: Inactive Member Role Status Dates Dr. Zion Chahal MD Primary Care Provider Active Dr. Uche Ordoñez DO Attending Provider, Emergency P rovider Active Team Status: Inactive Member Role Status Dates Dr. Zion Chahal MD Primary Care P roaixa, Attending Provider, Referring Provider Active Team Status: Active Member Role Status Dates Dr. Zion Chahal MD Primary Care Provider Active Dr. Hayden Mcnair MD Emergency Provider Active Dr. Elsa Coleman DO Admit Provider, Att ending Provider, Other Provider Active Team Status: Active Member Role Status Dates Dr. Zion Chahal MD Primary Care Provider Active Dr. Hayden Mcnair MD Emergency Provider Active Dr. Elsa Coleman DO Admit Provider, Other Provider Ac tive Dr. Treva Mariee MD Attending Provider, Other Provid er Active Dr. Nimco Braswell MD Other Provider Active Team Status: Active Member Role Status Dates Dr. Zion Chahal MD Primary Care Provider Active Dr. Hayden Mcnair MD Emergency Provider Active Dr. Elsa Coleman DO Admit Provider, Other Provider Ac tive Dr. Treva Mariee MD Other Provider Active Dr. Nimco Braswell MD Attending Provider, Other Provid er Active Team Status: Inactive Member Role Status Dates Dr. Zion Chahal MD Primary Care Provider Active Dr. Hayden Mcnair MD Emergency Provider Active Dr. Elsa Coleman DO Admit Provider, Other Provider Ac tive Dr. Treva Mariee MD Other Provider Active Dr. Nimco Braswell MD Attending Provider Active Team Status: Active Member Role Status Dates Dr. Zion Chahal MD Primary Care Provider Active Dr. Hayden Mcnair MD Emergency Provider Active Dr. Elsa Coleman DO Admit Provider, Ref erring Provider, Other Provider Active Dr. Treva Mariee MD Attending Provider, Other Provid er Active Dr. Nimco Braswell MD Other Provider Active Team Status: Active Member Role Status Dates Dr. Zion Chahal MD Primary Care Provider Active Team Status: Inactive Member Role Status Dates Dr. Zion Chahal MD Primary Care Provider Active Start: February 05, 2025 End: February 05, 2025 Dr. Zion Chahal MD Referring Provider Active Start: February 05, 2025 End: February 05, 2025 Zion Pelayo NP, GEOPHYSICAL LABORATORY CHIEF-C Attending Provider Active S tart: February 05, 2025 End: February 05, 2025 FOR RECORDS PERTAINING TO PATIENTS WHO ARE OR HAVE BEEN ENROLLED IN A CHEMICAL DEPENDENCY/SUBSTANCEABUSE PROGRAM, SOME INFORMATION MAY BE OMITTED. This clinical summary was aggregated from multiple sources. Caution should be exercised in using it in the provision of clinical care. This summary normalizes information from multiple sources, and as a consequence, information in this document may materially change the coding, format and clinical context of patient data. In addition, data may be omitted in some cases. CLINICAL DECISIONS SHOULD BE BASED ON THE PRIMARY CLINICAL RECORDS. [facility] [employer] provides no warranty or guarantee of the accuracy or completeness of information in this document.
[2025-02-25 02:14] VITALS: BP 154/63; PULSE 61; RESP 17; O2SAT 95
[2025-02-25 02:31] LABS: Anion Gap 11 (5-15); BUN 20 mg/dL (4-19); BUN/Creat Ratio 17.6 RATIO (10-20); Calcium,Total 8.8 mg/dL (7.6-11.0); Chloride 98 mmol/L (98-108); Creatinine, Serum 1.16 mg/dL (0.70-1.20); EST Glomerular Filtration Rate 46 (>60); Estimated Creatinine Clearance 30.11 ml/min (50-250); Glucose 98 mg/dL (70-99); Magnesium 1.8 mg/dL (1.5-2.2); Potassium 4.2 mmol/L (3.3-5.1); Sodium Level 132 mmol/L (133-145)
[2025-02-25 02:41] VITALS: BP 160/67; PULSE 63; RESP 14; TEMP 36.8; O2SAT 97
--- NOTE | 2025-02-25 02:41 | EDS_ITS ---
HPI History of Present Illness Chief Complaint: Palpitations Informant: patient and friend Narrative Narrative: Patient is an 84-year-old female with past medical history of paroxysmal atrial fibrillation currently on Eliquis as well as hypertension and hypothyroidism. She states she has been taking her medications as directed and is overall been feeling well. She states she went to bed normally then awoke with sensation that her heart was racing. She states it felt similar to when she had been in atrial fibrillation in the past. She denies any excessive stimulant use or illicit drug use. She states that as she has needed intervention in the past when she is gone in atrial fibrillation she presents to the ER for evaluation. [facility] Medical History Hip fracture requiring operative repair Elevated troponin SVT (supraventricular tachycardia) Anemia Acute hyponatremia Atherosclerosis of coronary artery of [place] heart without angina pectoris PAF (paroxysmal atrial fibrillation) Nonrheumatic aortic (valve) stenosis Compression fracture Essential (primary) hypertension Premature ventricular beats Myocarditis Solar elastosis Arthritis Depression Right leg DVT Nonsustained paroxysmal ventricular tachycardia Non-ischemic cardiomyopathy Home Medications ?Medication ?Instructions ?Recorded ?Last Taken ?Type levothyroxine 112 mcg tablet 112 mcg PO QODAY hypothro idism 02/17/20 06/04/24 History escitalopram oxalate 20 mg tablet 20 mg PO DAILY anxie ty 07/29/21 06/04/24 History aspirin 81 mg chewable tablet 1 tab PO DAILY heart hea lth 02/12/24 06/04/24 History (Arlet Chewable Low Dose Aspirin) alendronate 70 mg tablet 70 mg PO bone [facility] 01/2006/04/24 History potassium chloride 10 mEq 20 meq (2 x 10 mEq) PO DAILY 03/06/24 06/04/24 Rx tablet,extended release supplement #0 tabs levothyroxine 100 mcg tablet 100 mcg PO QODAY thyroid 03/31/24 06/04/24 History atorvastatin 40 mg tablet 40 mg PO QHS 90 days #90 tab s 04/02/24 06/04/24 Rx amiodarone 200 mg tablet 100 mg (1/2 x 200 mg) PO RUBEN LY 07/04/24 Unknown Rx heart #45 tabs apixaban 2.5 mg tablet (Eliquis) See Rx Instructions . Route 11/27/24 Unknown Rx .COMPLEX blood thinner #180 tabs sacubitril 24 mg-valsartan 26 mg 1 tab PO BID #180 tab s 01/10/25 Unknown Rx tablet (Entresto) carvedilol 12.5 mg tablet 12.5 mg PO .COMPLEX heart ra te 02/13/25 Unknown Rx #180 tabs carvedilol 25 mg tablet 25 mg PO .COMPLEX #180 tabs 02/13/25 Unknown Rx Allergy/AdvReac Type Severity Reaction Status Date / Time imiquimod (From Aldara) Allergy Unknown Verified 02/25/25 01:14 Penicillins (PCN) Allergy Anaphylaxis Verified 02/25/25 01:14 dapagliflozin (From Farxiga) AdvReac Intermediate Lightheaded Verified 02/25/25 01:14 and faint ciprofloxacin (From Cipro) AdvReac Other Verified 02/25/25 01:14 furosemide AdvReac low saodium Verified 02/25/25 01:14 hydrochlorothiazide AdvReac hyponatremi Verified 02/25/25 01:14 a magnesium AdvReac Nausea Verified 02/25/25 01:14 prednisone AdvReac Upset Verified 02/25/25 01:14 Stomach Family History Mother Heart disease Father Heart disease Surgical History History of coronary artery stent placement (01/21/23) History of cataract surgery History of right hip replacement History of hysterectomy History of left heart catheterization (02/19/11) Social History household members: none Smoking Status: Former smoker how long ago did patient quit smokin years ago alcohol intake: current alcohol intake frequency: holidays/special occasions only substance use type: does not use caffeine: Yes Type: coffee Number of servings: 1 ROS ROS ED Constitutional Constitutional ED: Denies chills or fever(s) Eyes Eyes: Denies blurry vision or change in vision ENT ENT ED: Denies sore throat Cardiovascular Cardiovascular: Reports palpitations and racing heartbeat; Denies chest pain Respiratory/Chest Respiratory/Chest: Denies cough or dyspnea Gastrointestinal Gastrointestinal: Denies abdominal pain, diarrhea, nausea or vomiting Genitourinary Genitourinary ED: Denies hematuria Musculoskeletal Musculoskeletal: Denies myalgias Integumentary Denies rash Neurologic Neurologic: Denies headache(s) Hematologic/Lymphatic Hematologic/Lymphatic: Reports easy bleeding and easy bruising EXAM Physical Exam Const Vital Signs: 02/25/25 01:14 02/25/25 01:17 02/25/25 02:14 Temperature 98.6 F Temperature Source Oral Pulse Rate 66 61 Respiratory Rate 18 17 Respiratory Effort Normal Non-Labored Respiratory Pattern Normal Blood Pressure 187/88 H 154/63 H Blood Pressure Mean 121 93 Pulse Ox 97 95 Oxygen Delivery Method Room Air 02/25/25 02:41 Temperature 98.2 F Temperature Source Pulse Rate 63 Respiratory Rate 14 Respiratory Effort Respiratory Pattern Blood Pressure 160/67 H Blood Pressure Mean 98 Pulse Ox 97 Oxygen Delivery Method Positive well nourished and well developed General Appearance ED: well developed; Negative for pallor HEENT HEENT Narrative: Normocephalic atraumatic No tongue or lip swelling no oral lesions no airway edema or compromise No secondary findings in the posterior pharynx to suggest infection Eyes PERRL and EOMs intact bilaterally General Eye ED: Negative for scleral icterus Neck supple and no JVD Neck Narrative: No nuchal rigidity or meningeal signs Resp normal respiratory effort and clear to auscultation bilaterally Cardio regular rate and regular rhythm Rate: other Other Details: Heart is regular rate and rhythm Radial and carotid pulses are equal and symmetric GI normal to inspection, nondistended, normoactive bowel sounds, non-tender, non- distended and no masses Auscultation: normoactive bowel sounds Palpation: soft Extremity normal to inspection Extremity Narrative: Negative Homans' sign bilaterally Neuro oriented x3, CN's II-XII intact bilaterally and no sensory deficits noted Sensorium / Orientation: alert Motor Exam: strength 5/5 throughout Psych mental status grossly normal Mood & Affect: Negative for anxious Skin no rashes or lesions noted General Skin Exam: Negative for jaundice or pallor MDM MDM MDM Narrative Medical decision making narrative: Patient presented to the ER hypertensive but otherwise with stable vitals. She reported palpitations and heart racing consistent with previous bouts of atrial fibrillation. However upon arrival to the ER she did report she has had spontaneous symptom improvement. EKG confirms normal sinus rhythm. In order to ensure that she did not go into paroxysmal atrial fibrillation secondary to acute blood loss anemia acute kidney injury or clinically significant electrolyte abnormality basic blood work was obtained. Labs revealed chronic findings that were at patient's baseline but no acute changes. Patient's blood pressure improved spontaneously. She was kept on the cardiac monitor technician and there was no bouts of atrial fibrillation. Therefore at this time with spontaneous resolution of symptoms and a negative workup there is no need for further evalua tion in the hospital and she is otherwise safe for discharge History & Record Review Discussion w/independent historian: Patient and Friend Lab Data Attestation: I reviewed the patient's lab results. Labs: Laboratory Results - last 24 hr 02/25/25 01:27 WBC 4.7 RBC 2.96 L Hgb 9.6 L Hct 29.0 L MCV 98.0 MCH 32.4 H MCHC 33.1 RDW Std Deviation 50.5 H RDW Coeff of Tonie 14.2 Plt Count 147 L MPV 11.6 Immature Gran % (Auto) 0.200 Neut % (Auto) 52.0 Lymph % (Auto) 30.9 Gila % (Auto) 12.9 H Eos % (Auto) 3.6 Baso % (Auto) 0.4 Absolute Neuts (auto) 2.5 Absolute Lymphs (auto) 1.46 Nucleated RBC % 0 Sodium 132 L Potassium 4.2 Chloride 98 Carbon Dioxide 24.0 Anion Gap 11 BUN 20 H Creatinine 1.16 Estim Creat Clear Calc 30.11 L Est GFR (MDRD) Non-Af 46 L BUN/Creatinine Ratio 17.6 Glucose 98 Calcium 8.8 Magnesium 1.8 TSH 7.160 H Discharge Plan Triage Chief Complaint: Palpitations ED Provider: Everette Chavira Dx/Rx/DC Orders Clinical Impression: Palpitations, Essential (primary) hypertension, Hypothyroidism, Current use of retirement anticoagulation Instructions: ED Palpitations Prescriptions: No Action escitalopram oxalate 20 mg tablet 20 mg PO DAILY levothyroxine 112 MCG tablet 112 mcg PO QODAY Rx Instructions: every other day aspirin [Arlet Chewable Aspirin] 81 mg tablet,chewable 1 tab PO DAILY alendronate 70 mg tablet 70 mg PO TU levothyroxine 100 mcg tablet 100 mcg PO QODAY atorvastatin 40 mg Tablet 40 mg PO QHS 90 Days Qty: 90 3RF potassium chloride 10 mEq tablet extended release 20 meq PO DAILY Qty: 0 0RF amiodarone 200 mg tablet 100 mg PO DAILY Qty: 45 3RF Eliquis 2.5 mg tablet See Rx Instructions .ROUTE .COMPLEX Qty: 180 3RF Dose Instruction: TAKE 1 TABLET TWICE DAILY Rx Instructions: TAKE 1 TABLET TWICE DAILY Entresto 24-26 mg tablet 1 tab PO BID Qty: 180 3RF carvedilol 25 mg tablet 25 mg PO .COMPLEX Qty: 180 3RF Rx Instructions: 25 mg orally Take a 25 mg tablet with a 12.5 mg tablet TWICE DAILY to = 37.5 TWICE A DAY; must administer with a meal/food carvedilol 12.5 mg tablet 12.5 mg PO .COMPLEX Qty: 180 3RF Rx Instructions: 12.5 mg orally Take with a 25 mg to = 37.5 mg TWICE a day. must administer with a meal/food Primary Care Provider: Alek Chahal Referrals: Alek Chahal MD [Primary Care Provider] - Activity Restrictions/Additional Instructions: Based on your past medical history you are most likely in atrial fibrillation but your body spontaneously converted out of it back to normal sinus rhythm prior to arrival in the ER. Please continue all of your home medications as directed by your doctor and return to the ER should you have any further concerns Print Language: Georgian Disposition Disposition: Home, Self Care
== END 2025-02-25 02:43 | disposition home or self-care (01) ==
PROVIDERS: Emergency Provider Emergency Medicine; PCP Family Medicine; Visit Provider Emergency Medicine
DX: R00.2 Palpitations (principal); Z90.710 Acquired absence of both cervix and uterus; Z79.01 Long term (current) use of anticoagulants; Z87.891 Personal history of nicotine dependence; E03.9 Hypothyroidism, unspecified; I25.10 Atherosclerotic heart disease of native coronary artery without angina pectoris; Z86.718 Personal history of other venous thrombosis and embolism; I10 Essential (primary) hypertension; Z95.5 Presence of coronary angioplasty implant and graft; R23.3 Spontaneous ecchymoses
CPT/HCPCS: 80048; 83735; 84443; 85025; 93005; 99283; A4216

== ENCOUNTER → 2025-03-05 | Outpatient (CLI) | payer MEDICARE, SELFPAY ==
[2023-05-07 08:38] VITALS: BMI 23.0
== END | disposition home or self-care (01) ==
PROVIDERS: PCP Family Medicine; Referring Provider Family Medicine; Visit Provider Family Medicine
DX: Z12.31 Encounter for screening mammogram for malignant neoplasm of breast (principal)
CPT/HCPCS: 77063; 77067

== ENCOUNTER 2025-05-07 02:21 | Emergency (ER) | payer MEDICARE, SELFPAY ==
[2023-05-07 08:38] VITALS: BMI 23.0
[2025-05-07 02:22] VITALS: BP 149/93; PULSE 94; RESP 21; TEMP 36.7; O2SAT 97; BMI 24.7
--- NOTE | 2025-05-07 02:44 | EKG12_ITS ---
Test Reason : DYSRHYTHMIA Blood Pressure : */* mmHG Vent. Rate : 103 BPM Atrial Rate : * BPM P-R Int : * ms QRS Dur : 108 ms QT Int : 380 ms P-R-T Axes : * -27 72 degrees QTcB Int : 497 ms Atrial fibrillation with rapid ventricular response Incomplete right bundle branch block Septal infarct (cited on or before 25-Feb-2025) QTcB >= 480 msec Abnormal ECG Confirmed by Ray Bey ([id number]), research editor ROOPA BYERS ([id number]) on 05/08/2025 10:17:29 AM Referred By: JESUS Confirmed By: Ray Bey
[2025-05-07 02:51] LABS: Hematocrit 30.8 % (37-47); Hemoglobin 10.2 g/dL (12.0-15.0); Immature Granulocytes Count 0.020 X10^3/uL (0.0-0.0); Mean Corp Hgb Conc 33.1 g/dL (32-36); Mean Corpuscular Volume 97.5 fL (81-99); Mean Platelet Vol. 11.5 fl (6.2-12.0); NRBC Flagged by Analyzer 0 % (0-5); Platelet Count 170 K/mm3 (150-450); RBC Distribution Width CV 13.7 % (11.6-14.6); RBC Distribution Width SD 49.2 fl (35.1-43.9); Red Blood Count 3.16 M/mm3 (4.2-5.4); White Blood Count 5.5 K/mm3 (4.4-11.0)
[2025-05-07] MEDS: 0.9% Normal Saline (500mL Bag) 500 ML 999 ML IV (02:53)
[2025-05-07 03:20] VITALS: BP 137/82; PULSE 92; RESP 15; O2SAT 94
[2025-05-07 03:28] LABS: Anion Gap 9 (5-15); BUN 17 mg/dL (4-19); BUN/Creat Ratio 15.2 RATIO (10-20); Calcium,Total 8.7 mg/dL (7.6-11.0); Carbon Dioxide 24.9 mmol/L (21.0-32.0); Chloride 96 mmol/L (98-108); Estimated Creatinine Clearance 31.39 ml/min (50-250); Glucose 100 mg/dL (70-99); Magnesium 1.8 mg/dL (1.5-2.2); Potassium 4.3 mmol/L (3.3-5.1)
[2025-05-07 03:48] VITALS: BP 109/65; PULSE 88; RESP 17; TEMP 36.6; O2SAT 93
[2025-05-07 04:00] VITALS: PULSE 91; RESP 18; O2SAT 97
[2025-05-07 05:00] VITALS: BP 109/65; PULSE 89; RESP 18; O2SAT 92
--- NOTE | 2025-05-07 05:23 | EDS_ITS ---
HPI History of Present Illness Chief Complaint: Palpitations Informant: patient and friend Narrative Narrative: Patient is an 84-year-old female with past medical history of paroxysmal atrial fibrillation currently on Eliquis as well as hypertension and hypothyroidism. She states that she went to bed feeling normal and then awoke with sensation of heart racing and palpitations. She states it feels like her previous bouts of atrial fibrillation. She states she has been taking her medications as directed. She denies any chest pain or shortness of breath associated with this. She denies any recent or excessive stimulant use or illicit drug use. She states she is not normally in atrial fibrillation and was concerned she may need treatment to reverse the abnormal heart rhythms she presents for evaluation [facility] Medical History Hip fracture requiring operative repair Elevated troponin SVT (supraventricular tachycardia) Anemia Acute hyponatremia Atherosclerosis of coronary artery of [place] heart without angina pectoris PAF (paroxysmal atrial fibrillation) Nonrheumatic aortic (valve) stenosis Compression fracture Essential (primary) hypertension Premature ventricular beats Myocarditis Solar elastosis Arthritis Depression Right leg DVT Nonsustained paroxysmal ventricular tachycardia Non-ischemic cardiomyopathy Home Medications ?Medication ?Instructions ?Recorded ?Last Taken ?Type levothyroxine 112 mcg tablet 112 mcg PO QODAY hypothro idism 02/17/20 06/04/24 History escitalopram oxalate 20 mg tablet 20 mg PO DAILY anxie ty 07/29/21 06/04/24 History aspirin 81 mg chewable tablet 1 tab PO DAILY heart hea lth 02/12/24 06/04/24 History (Arlet Chewable Low Dose Aspirin) alendronate 70 mg tablet 70 mg PO bone [facility] 01/2006/04/24 History levothyroxine 100 mcg tablet 100 mcg PO QODAY thyroid 03/31/24 06/04/24 History atorvastatin 40 mg tablet 40 mg PO QHS 90 days #90 tab s 04/02/24 06/04/24 Rx amiodarone 200 mg tablet 100 mg (1/2 x 200 mg) PO RUBEN LY 07/04/24 Unknown Rx heart #45 tabs apixaban 2.5 mg tablet (Eliquis) See Rx Instructions . Route 11/27/24 Unknown Rx .COMPLEX blood thinner #180 tabs sacubitril 24 mg-valsartan 26 mg 1 tab PO BID #180 tab s 01/10/25 Unknown Rx tablet (Entresto) carvedilol 12.5 mg tablet 12.5 mg PO .COMPLEX heart ra te 02/13/25 Unknown Rx #180 tabs carvedilol 25 mg tablet 25 mg PO .COMPLEX #180 tabs 02/13/25 Unknown Rx potassium chloride 10 mEq 20 meq (2 x 10 mEq) PO DAILY 03/21/25 Unknown Rx tablet,extended release supplement #180 tabs Allergy/AdvReac Type Severity Reaction Status Date / Time imiquimod (From Aldara) Allergy Unknown Verified 02/25/25 01:14 Penicillins (PCN) Allergy Anaphylaxis Verified 02/25/25 01:14 dapagliflozin (From Farxiga) AdvReac Intermediate Lightheaded Verified 02/25/25 01:14 and faint ciprofloxacin (From Cipro) AdvReac Other Verified 02/25/25 01:14 furosemide AdvReac low saodium Verified 02/25/25 01:14 hydrochlorothiazide AdvReac hyponatremi Verified 02/25/25 01:14 a magnesium AdvReac Nausea Verified 02/25/25 01:14 prednisone AdvReac Upset Verified 02/25/25 01:14 Stomach Family History Mother Heart disease Father Heart disease Surgical History History of coronary artery stent placement (01/21/23) History of cataract surgery History of right hip replacement History of hysterectomy History of left heart catheterization (02/19/11) Social History household members: none Smoking Status: Former smoker how long ago did patient quit smokin years ago alcohol intake: current alcohol intake frequency: holidays/special occasions only substance use type: does not use caffeine: Yes Type: coffee Number of servings: 1 ROS ROS ED Constitutional Constitutional ED: Denies chills or fever(s) Eyes Eyes: Denies blurry vision or change in vision ENT ENT ED: Denies sore throat Cardiovascular Cardiovascular: Reports palpitations and racing heartbeat; Denies chest pain Respiratory/Chest Respiratory/Chest: Denies cough or dyspnea Gastrointestinal Gastrointestinal: Denies abdominal pain, diarrhea, nausea or vomiting Genitourinary Genitourinary ED: Denies dysuria Musculoskeletal Musculoskeletal: Denies myalgias Integumentary Denies rash Neurologic Neurologic: Denies headache(s) Hematologic/Lymphatic Hematologic/Lymphatic: Reports easy bleeding and easy bruising EXAM Physical Exam Const Vital Signs: 05/07/25 02:22 05/07/25 02:27 05/07/25 03:20 Temperature 98.0 F Temperature Source Oral Pulse Rate 94 92 Respiratory Rate 21 H 15 Respiratory Effort Normal Blood Pressure 149/93 H 137/82 H Blood Pressure Mean 111 100 Pulse Ox 97 94 Oxygen Delivery Method Room Air Room Air 05/07/25 03:48 05/07/25 04:00 05/07/25 05:00 Temperature 98 F Temperature Source Pulse Rate 88 91 89 Respiratory Rate 17 18 18 Respiratory Effort Blood Pressure 109/65 109/65 Blood Pressure Mean 79 79 Pulse Ox 93 97 92 Oxygen Delivery Method Room Air Positive well nourished and well developed General Appearance ED: well developed; Negative for pallor HEENT HEENT Narrative: Normocephalic atraumatic Eyes PERRL and EOMs intact bilaterally General Eye ED: Negative for pale conjunctiva or scleral icterus Neck supple and no JVD Resp normal respiratory effort and clear to auscultation bilaterally Resp Narrative: Breath sounds are diminished throughout but overall clear to auscultation without signs of respiratory distress Cardio Rate: other Other Details: Irregularly irregular rhythm with regular rate at approximate 95 bpm consistent with atrial fibrillation GI normal to inspection, nondistended, normoactive bowel sounds, non-tender, non- distended and no masses Auscultation: normoactive bowel sounds Palpation: soft Extremity normal to inspection Extremity Narrative: No asymmetric edema no pitting edema negative Homans' sign bilaterally Neuro oriented x3, CN's II-XII intact bilaterally and no sensory deficits noted Sensorium / Orientation: alert Motor Exam: strength 5/5 throughout Psych mental status grossly normal Skin no rashes or lesions noted General Skin Exam: Negative for jaundice or pallor MDM MDM MDM Narrative Medical decision making narrative: Patient arrived to the ER hypertensive but otherwise with stable vitals. She reported feeling palpitations and heart racing but her heart rate was at upper limit of normal at approximately 95. With her past medical history there is concern for breakthrough atrial fibrillation with rapid ventricular response and this could be secondary to acute blood loss anemia acute kidney injury or electrolyte abnormality. Basic blood work was obtained which revealed chronic findings that are at patient's baseline but no clinically significant findings/changes. She was given IV Cardizem/10 mg and with this had improvement of her heart rate and blood pressure but no spontaneous cardioversion. I discussed with patient that she is hemodynamically stable but as she is anticoagulated and has a history of this we could perform a synchronized cardioversion to place her back in sinus rhythm. She states that the previous time she has had breakthrough A-fib it has converted on its own and she does not want to undergo cardioversion at this time. I did discuss the case with cardiology on-call Dr. Mack to discuss potential medication adjustment but he recommends patient stay on her amiodarone and carvedilol as previously directed. The patient was informed of this and will follow-up in the office to discuss potential cardioversion or referral to electrophysiology. However at this time she is hemodynamically stable without signs of acute blood loss anemia acute kidney injury or clinically significant electrolyte abnormality and her heart rate is within normal rhythm and her blood pressure stable so she is otherwise safe for discharge History & Record Review Discussion w/independent historian: Patient and Friend Lab Data Attestation: I reviewed the patient's lab results. Labs: Laboratory Results - last 24 hr 05/07/25 02:30 WBC 5.5 RBC 3.16 L Hgb 10.2 L Hct 30.8 L MCV 97.5 MCH 32.3 H MCHC 33.1 RDW Std Deviation 49.2 H RDW Coeff of Tonie 13.7 Plt Count 170 MPV 11.5 Immature Gran % (Auto) 0.400 Neut % (Auto) 62.3 Lymph % (Auto) 23.9 Haines % (Auto) 10.0 Eos % (Auto) 2.9 Baso % (Auto) 0.5 Absolute Neuts (auto) 3.4 Absolute Lymphs (auto) 1.31 Nucleated RBC % 0 Sodium 130 L Potassium 4.3 Chloride 96 L Carbon Dioxide 24.9 Anion Gap 9 BUN 17 Creatinine 1.11 Estim Creat Clear Calc 31.39 L Est GFR (MDRD) Non-Af 48 L BUN/Creatinine Ratio 15.2 Glucose 100 H Calcium 8.7 Magnesium 1.8 TSH 7.550 H Management Discussion w/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 healthcare provider: 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 Discharge Plan Triage Chief Complaint: Palpitations ED Provider: Everette Chavira Dx/Rx/DC Orders Clinical Impression: Paroxysmal atrial fibrillation, Essential (primary) hypertension, Current use of oil heaterman anticoagulation, Hypothyroidism Instructions: AFib Dc Prescriptions: No Action escitalopram oxalate 20 mg tablet 20 mg PO DAILY levothyroxine 112 MCG tablet 112 mcg PO QODAY Rx Instructions: every other day aspirin [Arlet Chewable Aspirin] 81 mg tablet,chewable 1 tab PO DAILY alendronate 70 mg tablet 70 mg PO TU levothyroxine 100 mcg tablet 100 mcg PO QODAY atorvastatin 40 mg Tablet 40 mg PO QHS 90 Days Qty: 90 3RF amiodarone 200 mg tablet 100 mg PO DAILY Qty: 45 3RF Eliquis 2.5 mg tablet See Rx Instructions .ROUTE .COMPLEX Qty: 180 3RF Dose Instruction: TAKE 1 TABLET TWICE DAILY Rx Instructions: TAKE 1 TABLET TWICE DAILY Entresto 24-26 mg tablet 1 tab PO BID Qty: 180 3RF carvedilol 25 mg tablet 25 mg PO .COMPLEX Qty: 180 3RF Rx Instructions: 25 mg orally Take a 25 mg tablet with a 12.5 mg tablet TWICE DAILY to = 37.5 TWICE A DAY; must administer with a meal/food carvedilol 12.5 mg tablet 12.5 mg PO .COMPLEX Qty: 180 3RF Rx Instructions: 12.5 mg orally Take with a 25 mg to = 37.5 mg TWICE a day. must administer with a meal/food potassium chloride 10 mEq tablet extended release 20 meq PO DAILY Qty: 180 3RF Primary Care Provider: Alek Chahal Referrals: Javier Lehman MD [Med Staff - Active Staff] - Alek Chahal MD [Primary Care Provider] - Activity Restrictions/Additional Instructions: Please continue all of your home medication as directed by your doctor. Contact your cardiology office to discuss potential need for cardioversion if you do not spontaneously convert out of atrial fibrillation. If you have any further concerns or worsening symptoms please return to the ER for repeat evaluation Print Language: Georgian Disposition Disposition: Home, Self Care Discharge Date/Time: 05/07/25 05:28
== END 2025-05-07 05:28 | disposition home or self-care (01) ==
PROVIDERS: Emergency Provider Emergency Medicine; PCP Family Medicine; Visit Provider Emergency Medicine
DX: I48.0 Paroxysmal atrial fibrillation (principal); I25.10 Atherosclerotic heart disease of native coronary artery without angina pectoris; I10 Essential (primary) hypertension; E03.9 Hypothyroidism, unspecified; Z79.01 Long term (current) use of anticoagulants; Z87.891 Personal history of nicotine dependence; Z86.718 Personal history of other venous thrombosis and embolism
CPT/HCPCS: 80048; 83735; 84443; 85025; 93005; 99283; A4216

== ENCOUNTER → 2025-05-28 | Outpatient (CLI) | payer MEDICARE, SELFPAY ==
[2023-05-07 08:38] VITALS: BMI 23.0
[2025-05-28 17:54] LABS: Hematocrit 29.8 % (37-47); Hemoglobin 10.0 g/dL (12.0-15.0); Immature Granulocytes Count 0.010 X10^3/uL (0.0-0.0); Mean Corp Hgb Conc 33.6 g/dL (32-36); Mean Corpuscular Volume 93.7 fL (81-99); Mean Platelet Vol. 11.0 fl (6.2-12.0); NRBC Flagged by Analyzer 0 % (0-5); Platelet Count 227 K/mm3 (150-450); RBC Distribution Width CV 13.6 % (11.6-14.6); RBC Distribution Width SD 47.0 fl (35.1-43.9); Red Blood Count 3.18 M/mm3 (4.2-5.4); White Blood Count 4.5 K/mm3 (4.4-11.0)
[2025-05-28 18:24] LABS: Anion Gap 11 (5-15); BUN 16 mg/dL (4-19); BUN/Creat Ratio 12.9 RATIO (10-20); Calcium,Total 8.4 mg/dL (7.6-11.0); Carbon Dioxide 26.1 mmol/L (21.0-32.0); Chloride 96 mmol/L (98-108); Glucose 85 mg/dL (70-99); Potassium 4.1 mmol/L (3.3-5.1); Pro- Brain NATRIURETIC PEPTIDE 4810 pg/mL (<=1800)
== END | disposition home or self-care (01) ==
LOC: MTLAB 14:23
PROVIDERS: PCP Family Medicine; Referring Provider Nurse Practitioner Gerontology; Visit Provider Nurse Practitioner Gerontology
DX: I42.8 Other cardiomyopathies (principal); I25.10 Atherosclerotic heart disease of native coronary artery without angina pectoris; R60.9 Edema, unspecified; R06.02 Shortness of breath
CPT/HCPCS: 36415; 80048; 83880; 85025

== ENCOUNTER → 2025-07-17 | Outpatient (CLI) | payer MEDICARE, SELFPAY ==
[2023-05-07 08:38] VITALS: BMI 23.0
[2025-07-17 12:51] LABS: Anion Gap 8 (5-15); BUN 20 mg/dL (4-19); BUN/Creat Ratio 15.9 RATIO (10-20); Calcium,Total 8.2 mg/dL (7.6-11.0); Carbon Dioxide 25.8 mmol/L (21.0-32.0); Chloride 101 mmol/L (98-108); Glucose 116 mg/dL (70-99); Potassium 4.6 mmol/L (3.3-5.1)
== END | disposition home or self-care (01) ==
LOC: MTLAB 10:57
PROVIDERS: PCP Family Medicine; Referring Provider Nurse Practitioner Family; Visit Provider Nurse Practitioner Family
DX: I42.8 Other cardiomyopathies (principal); I48.0 Paroxysmal atrial fibrillation; Z95.5 Presence of coronary angioplasty implant and graft; I35.0 Nonrheumatic aortic (valve) stenosis; I49.3 Ventricular premature depolarization; I10 Essential (primary) hypertension
CPT/HCPCS: 36415; 80048

== ENCOUNTER → 2025-08-20 | Outpatient (CLI) | payer MEDICARE, SELFPAY ==
[2023-05-07 08:38] VITALS: BMI 23.0
[2025-08-20 18:16] LABS: Anion Gap 9 (7-18); BUN 25 mg/dL (4-19); BUN/Creat Ratio 15.1 RATIO (10-20); Calcium,Total 8.7 mg/dL (7.6-11.0); Carbon Dioxide 29.6 mmol/L (20.0-29.0); Chloride 95 mmol/L (96-106); Glucose 86 mg/dL (70-99); Potassium 4.5 mmol/L (3.5-5.1)
== END | disposition home or self-care (01) ==
LOC: MTLAB 14:02
PROVIDERS: PCP Family Medicine; Referring Provider Nurse Practitioner Family; Visit Provider Nurse Practitioner Family
DX: I50.9 Heart failure, unspecified (principal)
CPT/HCPCS: 36415; 80048